=== PATIENT | female | born 1960 | race African-American/Black ===

== ENCOUNTER 2016-12-27 14:30 | Inpatient (IN) | payer MEDICARE, OTHER ==
[~2016-12-27] VITALS: Ht 165.1 cm; Wt 49.3 kg
[~2016-12-27 14:30] MED LIST: AMLO5TAB2 PO; LISI-519 PO; NEPHRO PO; ROCA0.5C PO; SEVEL800 PO
[2016-12-27 14:33] VITALS: BP 181/81; PULSE 105; RESP 24; TEMP 99; O2SAT 93
--- NOTE | 2016-12-27 14:45 | PD ---
Physical Exam Date Seen by Provider: Dec 27, 2016 Time Seen by Provider: 14:44 Narrative 56 YOBF C/O PNEUMOTHORAX. H/O CHRONIC COUGH. XRAY [place] VS REVIEWED AWAITING BED PLACEMENT Data Data Last Documented VS Vital Signs Date Time Temp Pulse Resp B/P Pulse Ox O2 Delivery O2 Flow Rate FiO2 12/27/16 14:33 99.0 105 24 181/81 93 Room Air MDM Supervised Visit with AN: No Condition: Stable Gideon Meyer Dec 27, 2016 14:45
--- NOTE | 2016-12-27 15:04 | PD ---
HPI Chief Complaint: Medical Clearance Time Seen by Provider: 14:49 Travel History International Travel<30 days: No Contact w/Intl Traveler<30days: No Traveled to known affect area: No History of Present Illness HPI The patient is a 56-year-old female who presents to the emergency department after she was referred by her oncologist, Dr. Maher. The patient states she has a history of breast cancer in the right side with previous lumpectomy, radiation therapy, and chemotherapy, is currently not on chemotherapy or radiation therapy. The patient states she's had a dry mostly nonproductive cough since February 2016. The patient had an outpatient CT of the thorax ordered by her oncologist who referred her to the emergency department for a "collapsed lung" on the right side. The patient denies any outright chest pain, shortness of breath, nausea, vomiting, or abdominal pain. The patient's primary physician is Dr. Neftali Pastor. 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 The patient's symptoms are moderate without any alleviating or exacerbating symptoms. PFSH Past Medical History Hx Anticoagulant Therapy: Yes Cancer: Yes (right breast cancer) Cardiovascular Problems: Yes Diabetes: No Diminished Hearing: No Endocrine: No Gastrointestinal Disorders: Yes (GERD hx of but ok now) Genitourinary: No Hepatitis: No Hiatal Hernia: No Hypertension: Yes Immune Disorder: No Medical other: Yes (ANEMIA/ok now) Musculoskeletal: No Neurologic: No Psychiatric: No Reproductive: No Respiratory: No Renal Failure: Yes (NIGHTLY PERITONEAL DIALYSIS.) Thyroid Disease: No ?: Not Menopausal: Yes Past Surgical History Abdominal Surgery: Yes (TENCKHOFF CATH) AICD: No Body Medical Devices: TENCKHOFF CATH fistula left arm infusaport Joint Replacement: No Pacemaker: No Thoracic Surgery: Yes (infusaport RIGHT CHEST) Other Surgery: Yes (I&D INFECTED CYST) Social History Alcohol Use: No Tobacco Use: No Substance Use: No Allergies-Medications (Allergen,Severity, Reaction): Coded Allergies: No Known Allergies (Verified , 04/11/16) Reported Meds & Prescriptions Reported Meds & Active Scripts Active Reported Rocaltrol (Calcitriol) 0.5 Mcg Cap 0.5 Mcg PO 3 TIMES A WEEK @1700 Renvela (Sevelamer Carbonate) 800 Mg Tab 1,600 Mg PO TIDAC Nephro-[place] Rx (Vitamin B Cmplx/Vit C/Folic AC) 1 Tab 1 Tab PO DAILY Lisinopril 5 Mg Tab 5 Mg PO BID Amlodipine (Amlodipine Besylate) 5 Mg Tab 5 Mg PO DAILY Review of Systems Except as stated in HPI: all other systems reviewed are Neg General / Constitutional: No: Fever HENT: No: Lightheadedness Cardiovascular: No: Chest Pain or Discomfort Respiratory: Positive: Cough, No: Shortness of Breath Gastrointestinal: No: Nausea, Vomiting, Abdominal Pain Musculoskeletal: No: Edema, Pain Physical Exam Narrative GENERAL: Awake, alert, pleasant 56-year-old female who appears her stated age and is in no acute respiratory distress. SKIN: Focused skin assessment warm/dry. HEAD: Atraumatic. Normocephalic. EYES: No injection or drainage. ENT: No nasal bleeding or discharge. Mucous membranes pink and moist. NECK: Trachea midline. No JVD. CARDIOVASCULAR: Regular, tachycardic with a heart rate of 105. Port in place right chest wall. RESPIRATORY: No accessory muscle use. Diminished breath sounds over the entire right lung. GASTROINTESTINAL: Abdomen soft, peritoneal catheter in place. MUSCULOSKELETAL: No obvious deformities. No clubbing. No cyanosis. No edema. NEUROLOGICAL: Awake and alert. No obvious cranial nerve deficits. Motor grossly within normal limits. Normal speech. PSYCHIATRIC: Appropriate mood and affect; insight and judgment normal. Data Data Last Documented VS Vital Signs Date Time Temp Pulse Resp B/P Pulse Ox O2 Delivery O2 Flow Rate FiO2 12/27/16 14:33 99.0 105 24 181/81 93 Room Air Orders Complete Blood Count With Diff (12/27/16 15:04) Comprehensive Metabolic Panel (12/27/16 15:04) Act Partial Throm Time (Ptt) (12/27/16 15:04) Prothrombin Time / Inr (Pt) (12/27/16 15:04) Admit Order (Ed Use Only) (12/27/16 15:24) Labs Laboratory Tests Test 12/27/16 15:10 White Blood Count 10.8 TH/MM3 Red Blood Count 4.08 MIL/MM3 Hemoglobin 9.3 GM/DL Hematocrit 30.0 % Mean Corpuscular Volume 73.6 FL Mean Corpuscular Hemoglobin 22.8 PG Mean Corpuscular Hemoglobin 31.0 % Concent Red Cell Distribution Width 27.4 % Platelet Count 225 TH/MM3 Mean Platelet Volume 8.2 FL Neutrophils (%) (Auto) 84.2 % Lymphocytes (%) (Auto) 5.4 % Monocytes (%) (Auto) 7.4 % Eosinophils (%) (Auto) 2.3 % Basophils (%) (Auto) 0.7 % Neutrophils # (Auto) 9.1 TH/MM3 Lymphocytes # (Auto) 0.6 TH/MM3 Monocytes # (Auto) 0.8 TH/MM3 Eosinophils # (Auto) 0.2 TH/MM3 Basophils # (Auto) 0.1 TH/MM3 CBC Comment AUTO DIFF Prothrombin Time 11.4 SEC Prothromb Time International 1.0 RATIO Ratio Activated Partial 29.2 SEC Thromboplast Time Sodium Level 136 MEQ/L Potassium Level 3.9 MEQ/L Chloride Level 93 MEQ/L Carbon Dioxide Level 28.6 MEQ/L Anion Gap 14 MEQ/L Blood Urea Nitrogen 43 MG/DL Creatinine 14.89 MG/DL Estimat Glomerular Filtration 3 ML/MIN Rate Random Glucose 102 MG/DL Calcium Level 9.3 MG/DL Total Bilirubin 0.4 MG/DL Aspartate Amino Transf 9 U/L (AST/SGOT) Alanine Aminotransferase 14 U/L (ALT/SGPT) Alkaline Phosphatase 81 U/L Total Protein 8.6 GM/DL Albumin 3.0 GM/DL MDM Medical Decision Making Medical Screen Exam Complete: Yes Emergency Medical Condition: Yes Medical Record Reviewed: Yes Interpretation(s) CT of the thorax without contrast performed on December 21, 2016 reveals a very large right pleural effusion causing compressive atelectasis of most of the right lung. The left lung is clear and well aerated. No focal or acute pulmonary infiltrates are seen on the left side. There is either a very small left effusion versus pleural thickening. Moderate diffuse cardiomegaly. Laboratory Tests Test 12/27/16 15:10 White Blood Count 10.8 TH/MM3 Red Blood Count 4.08 MIL/MM3 Hemoglobin 9.3 GM/DL Hematocrit 30.0 % Mean Corpuscular Volume 73.6 FL Mean Corpuscular Hemoglobin 22.8 PG Mean Corpuscular Hemoglobin 31.0 % Concent Red Cell Distribution Width 27.4 % Platelet Count 225 TH/MM3 Mean Platelet Volume 8.2 FL Neutrophils (%) (Auto) 84.2 % Lymphocytes (%) (Auto) 5.4 % Monocytes (%) (Auto) 7.4 % Eosinophils (%) (Auto) 2.3 % Basophils (%) (Auto) 0.7 % Neutrophils # (Auto) 9.1 TH/MM3 Lymphocytes # (Auto) 0.6 TH/MM3 Monocytes # (Auto) 0.8 TH/MM3 Eosinophils # (Auto) 0.2 TH/MM3 Basophils # (Auto) 0.1 TH/MM3 CBC Comment AUTO DIFF Prothrombin Time 11.4 SEC Prothromb Time International 1.0 RATIO Ratio Activated Partial 29.2 SEC Thromboplast Time Sodium Level 136 MEQ/L Potassium Level 3.9 MEQ/L Chloride Level 93 MEQ/L Carbon Dioxide Level 28.6 MEQ/L Anion Gap 14 MEQ/L Blood Urea Nitrogen 43 MG/DL Creatinine 14.89 MG/DL Estimat Glomerular Filtration 3 ML/MIN Rate Random Glucose 102 MG/DL Calcium Level 9.3 MG/DL Total Bilirubin 0.4 MG/DL Aspartate Amino Transf 9 U/L (AST/SGOT) Alanine Aminotransferase 14 U/L (ALT/SGPT) Alkaline Phosphatase 81 U/L Total Protein 8.6 GM/DL Albumin 3.0 GM/DL Differential Diagnosis Differential diagnosis includes pleural effusion, malignant pleural effusion, consolidative pleural effusion, empyema, pneumonia, hyponatremia, cancer, cardiomyopathy, congestive heart failure, hypoalbuminemia. Narrative Course IV was established, labs are drawn and sent, and the patient was placed on cardiac telemetry monitoring and continuous pulse oximetry monitoring. I reviewed the patient's CT of the thorax results from [facility] which reveals a large right pleural effusion with compressive atelectasis of the entire right lung. The patient will be 23 hour observation for interventional radiology thoracentesis and evaluation of malignant versus nonmalignant effusion. Creatinine is slightly greater than 14, this is her baseline. The patient has a history of end-stage renal disease and is currently on peritoneal dialysis, nightly, and is followed by her operator helper, Dr. Ernst. The patient is stable for the medical floor. Physician Communication Physician Communication The patient's primary physician is Dr. Neftali Pastor, [facility]. Diagnosis Primary Impression: Pleural effusion, right Admitting Information Admitting Physician Requests: Observation Condition: Stable Baltazar Woodard MD Dec 27, 2016 15:04
[2016-12-27] MEDS ORDERED: MAGNESIUM HYDROXIDE SUSP 30 ML CUP PO PRN (15:30)
[2016-12-27] MEDS ORDERED: NALOXONE HCL 0.4 MG/ML AMP IV PRN (15:30)
[2016-12-27] MEDS ORDERED: BISACODYL 10 MG SUPP RECTAL PRN (15:30)
[2016-12-27] MEDS ORDERED: LACTULOSE SYRUP 20 GM/30 ML CUP PO PRN (15:30)
[2016-12-27 15:35] LABS: AUTOMATED NEUTROPHIL # 9.1 TH/MM3 (1.8-7.7); BASOPHIL # 0.1 TH/MM3 (0-0.2); BASOPHIL % 0.7 % (0.0-2.0); EOSINOPHIL # 0.2 TH/MM3 (0-0.4); EOSINOPHIL % 2.3 % (0.0-4.0); LYMPH % 5.4 % (9.0-44.0); LYMPHOCYTE # 0.6 TH/MM3 (1.0-4.8); MEAN CELL VOLUME 73.6 FL (80.0-100.0); MEAN CORPUSCULAR HEMOGLOBIN 22.8 PG (27.0-34.0); MONO % 7.4 % (0.0-8.0); NEUT % 84.2 % (16.0-70.0); PLATELET COUNT 225 TH/MM3 (150-450); RED BLOOD COUNT 4.08 MIL/MM3 (4.00-5.30); RED CELL DISTRIBUTION WIDTH 27.4 % (11.6-17.2); WHITE BLOOD COUNT 10.8 TH/MM3 (4.0-11.0)
[2016-12-27 15:40] LABS: APTT (PATIENT) 29.2 SEC (24.3-30.1); HEMO FLAGS AUTO DIFF; PROTHROMBIN TIME - PATIENT 11.4 SEC (9.8-11.6)
[2016-12-27 15:52] LABS: ALT (GPT) 14 U/L (10-53); ANION GAP 14 MEQ/L (5-15); AST (GOT) 9 U/L (15-37); BICARBONATE 28.6 MEQ/L (21.0-32.0); BLOOD UREA NITROGEN 43 MG/DL (7-18); CHLORIDE 93 MEQ/L (98-107); GLOMERULAR FILTRATION RATE 3 ML/MIN (>89); POTASSIUM 3.9 MEQ/L (3.5-5.1); SODIUM (NA) 136 MEQ/L (136-145)
[2016-12-27 15:55] LABS: ALKALINE PHOSPHATASE 81 U/L (45-117); TOTAL BILIRUBIN ADULT 0.4 MG/DL (0.2-1.0)
[2016-12-27 16:29] LABS: KERATOCYTES 1+ (NORMAL); OVALOCYTES 1+ (NORMAL); PLATELET ESTIMATE SMEAR NORMAL (NORMAL); PLATELET MORPHOLOGY NORMAL (NORMAL); SCAN/DIFF AUTO DIFF CONFIRMED; TEARDROP RBCS 1+ (NORMAL)
[2016-12-27] MEDS: SEVELAMER CARBONATE 800 MG TAB PO SCH (17:00)
[2016-12-27 18:28] VITALS: BP 185/85; PULSE 104; RESP 18; O2SAT 96
--- NOTE | 2016-12-27 18:30 | HP.UPD ---
H&P Update Note This is a 56-year-old female patient who sees oncologist Dr. Maher for breast cancer. She has been coughing recently. HRCT was done at [facility] and shows reportedly large right side effusion. The patient was sent into the emergency department at [facility]. She was seen by Dr. Woodard and subsequently seen by the undersigned in room delta 48. She is alert and verbal. She is repeatedly coughing. She denies any fever. Denies any pain. Her heart rate is about 105. Her potassium was also 5.6. She also has end-stage renal disease on peritoneal dialysis. Her employment services director Dr. conteh has already seen her in consultation. Pulmonary is consulted also thoracic surgery for possible chest tube insertion. there is suspicion of the effusion being malignant. Full history and physical to follow Danial Arias MD Dec 27, 2016 18:26
--- NOTE | 2016-12-27 19:09 | MB ---
cc: ERNESTINA GERARD MD DATE OF CONSULTATION 12/27/2016 REASON FOR CONSULTATION End-stage renal disease on peritoneal dialysis for management. HISTORY OF PRESENT ILLNESS This is a 56-year-old female with past medical history of hypertension, chronic anemia, history of breast cancer, end-stage renal disease on peritoneal dialysis, history of gastroesophageal reflux disease, history of GI bleeding came to the hospital referred by Dr. Maher her oncologist. The patient has this cough going on for the last five or six months and she had a chest x-ray done as an outpatient which showed that she has some pleural effusion and she was referred by her oncologist, Dr. Maher, to go to the hospital for possible thoracentesis. Patient has mainly dry cough. There is no chest pain. She does not have any fever. There is no history of trauma. She had the CT scan of the chest done as outpatient. The patient has been following with Dr. Maher for her breast cancer. She denies any chest pain. There is no abdominal pain. No nausea or vomiting. Her peritoneal fluid has been clear according to the patient. She had dialysis last night. PAST MEDICAL HISTORY 1. Hypertension. 2. Chronic anemia. 3. History of breast cancer. 4. Gastroesophageal reflux disease. 5. History of GI bleeding. 6. End-stage renal disease on peritoneal dialysis. PAST SURGICAL HISTORY 1. History of left arm AV fistula. 2. History of PD catheter placement. 3. PermaCath placement. 4. Gtfsdi-S-Sejp placement. REVIEW OF SYSTEMS The patient has no history of fever. No sore throat. She has generalized weakness. There is no shortness of breath or chest pain. She is currently on room air. She has cough which is mainly dry. There is no nausea or vomiting. No abdominal pain. No history of diarrhea. SOCIAL HISTORY The patient lives with her mother. There is no history of smoking or alcoholism. FAMILY HISTORY Noncontributory. ALLERGIES She has no known drug allergies. MEDICATIONS Currently she is on: 1. Lisinopril 5 mg b.i.d. 2. Annie-Colace 1 tablet b.i.d. 3. Norvasc 5 mg once a day. 4. Nephrocaps 1 capsule daily. 5. Calcitriol three times per week 0.5 mcg. 6. Renvela 1.6 grams t.i.d. with meals. 7. Zofran as needed. 8. [place] as needed. 9. Morphine as needed. PHYSICAL EXAMINATION GENERAL: On examination the patient is awake, alert. She is not in acute distress. VITAL SIGNS: Her last blood pressure is 181/81, temperature is 99, oxygen saturation on room air 93-97%. HEENT: Pupils equally reacting to light. Nonicteric sclera, conjunctiva pale. NECK: Supple. JVD is not elevated. LUNGS: The patient has bilateral decreased air entry more on the right side with scattered wheezing. HEART: S1-S2, regular rhythm. ABDOMEN: Soft. Lax. There is no tenderness. Bowel sounds positive. EXTREMITIES: She has mild edema in the legs. LABORATORY DATA Investigations, WBC count is 10.8, hemoglobin 9.3, platelet count of 225. Neutrophils 84.2%. Sodium 136, potassium 3.9, chloride 93, bicarb 28.6, BUN 43, creatinine 14.8. Calcium is 9.3. AST is 9, ALT is 14. Total protein is 8.6 with an albumin of 3.0. NR is 1.0. Urinalysis showing protein of 30. IMAGING STUDIES The patient has no recent imaging study done here. She has CT scan of the chest done as an outpatient and it shows that she had a large right-sided effusion. ASSESSMENT/PLAN 1. Right pleural effusion. 2. End-stage renal disease on peritoneal dialysis. 3. Hypertension. 4. Anemia. 5. History of gastroesophageal reflux disease and GI bleeding. The patient has normal potassium. She is not in fluid overload status. Her hemoglobin is slightly low 9.3. She will need thoracentesis done. She is still in the ER and waiting for a bed to go upstairs. She will be going soon according to the charge nurse here. At this point we will observe her and there is no acute urgent need for dialysis so most likely she is going to skip the peritoneal dialysis tonight. I did discuss with the patient and she is agreeable with that and she does not feel short of breath and her oxygen saturation is normal on room air and potassium is normal. We will wait for the procedure to be done by the intervention radiology and if she is still here, then she will get her peritoneal dialysis if needed. We can start it sooner in the daytime. Thank you for the consultation. I will follow the patient while she is in the hospital. Ernestina Gerard MD AQJ/KK /6:08 PM /6:46 PM
--- NOTE | 2016-12-27 19:59 | MB ---
cc: MIL ALANIZ DATE OF CONSULTATION 12/27/[address] Arias. REASON FOR CONSULTATION Pleural effusion. HISTORY OF THE PRESENT ILLNESS Ms. Garvin is a pleasant 56-year-old -[place] female with history of CA of the breast status post right lumpectomy and axillary lymph node dissection. She was treated with Herceptin and Taxol. Also has received radiation treatment. The patient has cardiomyopathy, ejection fraction of 35%. She also has history of end stage renal disease. She is on hemodialysis. The patient had a CT scan of the chest done last week by Dr. Hitesh Maher at [facility]. It shows large right pleural effusion with compressive atelectasis most of the right lung and has very small left pleural effusion. She has diffuse cardiomegaly. She denies any shortness of breath. Does not have any chest pain. No nausea or vomiting or cough or sputum production. No fever or chills. PAST MEDICAL HISTORY Her past medical history is significant for: 1. A history of CA of the breast status post right lumpectomy and status post chemotherapy and radiation treatment. 2. History of end-stage renal disease on dialysis. 3. Cardiomyopathy secondary to medication. MEDICATIONS She is on currently takin. Calcitriol 0.5 micrograms. 2. Amlodipine 5 mg a day. 3. Lisinopril 5 mg twice a day. 4. Morphine for pain. ALLERGIES NO KNOWN DRUG ALLERGIES. SOCIAL HISTORY She is single. 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 No history of smoking or alcohol abuse. FAMILY HISTORY She has one daughter who lives with her. REVIEW OF SYSTEMS Normally she is up, around and active. Denies any shortness of breath. No orthopnea or PND. No cough or sputum production. No DVT or pulmonary embolism. PHYSICAL EXAMINATION GENERAL: Thin-built female not in acute distress. VITAL SIGNS: Blood pressure 181/81, heart rate 105, respiration 20, temperature 99, saturation 93 - 100% on room air. HEENT: Examination pupils are equal, round and reactive to light. Oral mucosa, nasal mucosa normal. NECK: Supple. JVP not raised. CHEST: She has dull percussion noted and markedly decreased breath sounds on the right side. CARDIOVASCULAR: S1-S2 normal. ABDOMEN: Sort. nondistended. Bowel sounds are present. EXTREMITIES: No edema. IMPRESSION 1. Large right pleural effusion likely malignant. The patient is tolerating it well and she is comfortable. 2. Atelectasis. 3. End-stage renal disease. 4. Hypertension. 5. Cardiomyopathy. PLAN I discussed with the patient she will need right chest tube placement to drain the fluid and likely she will need pleurodesis. She is comfortable on room air at this point. I will request interventional radiology for fluoroscopic guided chest tube placement. Further treatment will depend on the course in the hospital. Thank you Dr. Arias for this consultation. MD LANA Perry/COLLEEN /7:09 PM /7:36 PM
[2016-12-27 20:51] VITALS: PULSE 86
[2016-12-27] MEDS: DOCUSATE SODIUM 50 MG/SENNA 8.6 MG TAB PO SCH (20:56)
[2016-12-27] MEDS: LISINOPRIL 5 MG TAB PO SCH (20:56)
[2016-12-27] MEDS: SODIUM CHLORIDE 0.9% FLUSH 10 ML FLUSH IV FLUSH SCH (20:56)
[2016-12-27 20:58] VITALS: BP 163/80; PULSE 92; RESP 18; TEMP 99.4; O2SAT 99
[2016-12-27] MEDS: ACETAMINOPHEN 325 MG TAB PO PRN (21:37)
[2016-12-27 23:10] VITALS: BP 159/79; PULSE 83; RESP 18; TEMP 97.8; O2SAT 92
[2016-12-28] VITALS (9 sets, daily range): BP systolic 143–177; BP diastolic 71–87; PULSE 78–88; RESP 17–20; TEMP 97–98.8; O2SAT 88–95
[2016-12-28] MEDS: SEVELAMER CARBONATE 800 MG TAB PO SCH ×4 (08:00→18:56)
[2016-12-28] MEDS ORDERED: fentaNYL CITRATE 250 MCG/5 ML AMP ONE (09:26)
[2016-12-28] MEDS ORDERED: MIDAZOLAM HCL 2 MG/2 ML VIAL ONE (09:26)
[2016-12-28 10:18] LABS: AUTOMATED NEUTROPHIL # 7.2 TH/MM3 (1.8-7.7); BASOPHIL # 0.1 TH/MM3 (0-0.2); BASOPHIL % 0.9 % (0.0-2.0); EOSINOPHIL # 0.3 TH/MM3 (0-0.4); EOSINOPHIL % 3.4 % (0.0-4.0); HEMATOCRIT 27.9 % (35.0-46.0); MEAN CELL VOLUME 73.9 FL (80.0-100.0); MEAN CORPUSCULAR HEMOGLOBIN 22.8 PG (27.0-34.0); MEAN CORPUSCULAR HGB CONC 30.8 % (32.0-36.0); MONO % 9.2 % (0.0-8.0); NEUT % 75.5 % (16.0-70.0); PLATELET COUNT 225 TH/MM3 (150-450); RED BLOOD COUNT 3.77 MIL/MM3 (4.00-5.30); RED CELL DISTRIBUTION WIDTH 27.2 % (11.6-17.2); WHITE BLOOD COUNT 9.5 TH/MM3 (4.0-11.0)
[2016-12-28 10:21] LABS: HEMO FLAGS AUTO DIFF
--- NOTE | 2016-12-28 10:26 | PD.RAD ---
Post Procedure Progress Note Pre Procedure Diagnosis: (1) Pleural effusion, right Post Procedure Diagnosis: (1) Pleural effusion, right Procedure Date: Dec 28, 2016 Supervising Radiologist: Lawrence Taylor JR Proceduralist/Assist: Hector Gonzalez, RT(R), Sandra Cerrato RT(R) Anesthesia: Conscious Sedation Plan of Activity Patient to Unit: ROPU Patient Condition: Good See PACS Report for procedural detail/treatment Drainage Procedure Procedure 1 Imaging Guidance: Fluoroscopy, Ultrasound Side: Right Procedure Type: Chest Tube Non-Tunneled Procedure: Placement Welsh: 10 Drainage: Pleurovac, Suction Fluid Description: Yellow Findings: Placed right sided chest tube. In good position and draining well. Plan Need to monitor output for several days before considering pleurodesis. Jr. Brandon,Lawrence Arechiga MD Dec 28, 2016 10:26
[2016-12-28 10:27] LABS: BICARBONATE 26.1 MEQ/L (21.0-32.0); POTASSIUM 3.7 MEQ/L (3.5-5.1)
--- NOTE | 2016-12-28 10:27 | HHI.PR ---
Subjective History of Present Illness Patient going for right side chest tube placement d/w RN. Review of Systems Constitutional Constitutional: Fatigue, Weakness Pulmonary Respiratory: Shortness of Breath Vitals/Results Intake & Output 12/27/16 12/27/16 12/28/16 14:59 22:59 06:59 Intake Total 480 ml 0 ml Balance 480 ml 0 ml Intake Oral 480 ml 0 ml # Voids 1 1 # Bowel Movements 0 0 Vital Signs Vital Signs Date Time Temp Pulse Resp B/P Pulse Ox O2 Delivery O2 Flow Rate FiO2 12/28/16 08:00 98.6 85 20 172/79 91 12/28/16 03:56 98.2 80 17 166/76 93 12/27/16 23:10 97.8 83 18 159/79 92 12/27/16 20:58 99.4 92 18 163/80 99 12/27/16 20:51 86 12/27/16 19:10 Nasal Cannula 2.00 12/27/16 18:28 104 18 185/85 96 Nasal Cannula 2 12/27/16 14:33 99.0 105 24 181/81 93 Room Air CBC/BMP: 12/28/16 0733 12/27/16 1510 Lab Results Laboratory Tests Test 12/27/16 12/28/16 15:10 07:33 White Blood Count 10.8 TH/MM3 9.5 TH/MM3 Red Blood Count 4.08 MIL/MM3 3.77 MIL/MM3 Hemoglobin 9.3 GM/DL 8.6 GM/DL Hematocrit 30.0 % 27.9 % Mean Corpuscular Volume 73.6 FL 73.9 FL Mean Corpuscular Hemoglobin 22.8 PG 22.8 PG Mean Corpuscular Hemoglobin 31.0 % 30.8 % Concent Red Cell Distribution Width 27.4 % 27.2 % Platelet Count 225 TH/MM3 225 TH/MM3 Mean Platelet Volume 8.2 FL 8.8 FL Neutrophils (%) (Auto) 84.2 % 75.5 % Lymphocytes (%) (Auto) 5.4 % 11.0 % Monocytes (%) (Auto) 7.4 % 9.2 % Eosinophils (%) (Auto) 2.3 % 3.4 % Basophils (%) (Auto) 0.7 % 0.9 % Neutrophils # (Auto) 9.1 TH/MM3 7.2 TH/MM3 Lymphocytes # (Auto) 0.6 TH/MM3 1.0 TH/MM3 Monocytes # (Auto) 0.8 TH/MM3 0.9 TH/MM3 Eosinophils # (Auto) 0.2 TH/MM3 0.3 TH/MM3 Basophils # (Auto) 0.1 TH/MM3 0.1 TH/MM3 CBC Comment AUTO DIFF AUTO DIFF Differential Comment AUTO DIFF CONFIRMED Platelet Estimate NORMAL Platelet Morphology Comment NORMAL Tear Drop Cells 1+ Ovalocytes 1+ Keratocytes 1+ Prothrombin Time 11.4 SEC Prothromb Time International 1.0 RATIO Ratio Activated Partial 29.2 SEC Thromboplast Time Sodium Level 136 MEQ/L Potassium Level 3.9 MEQ/L Chloride Level 93 MEQ/L Carbon Dioxide Level 28.6 MEQ/L Anion Gap 14 MEQ/L Blood Urea Nitrogen 43 MG/DL Creatinine 14.89 MG/DL Estimat Glomerular Filtration 3 ML/MIN Rate Random Glucose 102 MG/DL Calcium Level 9.3 MG/DL Total Bilirubin 0.4 MG/DL Aspartate Amino Transf 9 U/L (AST/SGOT) Alanine Aminotransferase 14 U/L (ALT/SGPT) Alkaline Phosphatase 81 U/L Total Protein 8.6 GM/DL Albumin 3.0 GM/DL Physical Exam General General Appearance: No Acute Distress, Comfortable Eyes Eye Exam: Sclera White, Extraocular Movement Intact Throat Throat Exam: Oral Mucosa Foss & Moist, Oral Pharynx Normal Neck Neck Exam: Neck Supple, Trachea Midline Pulmonary Resp Exam: No Distress, Decreased Bases Resp Remarks No breath sound right lower chest Cardiology CV Exam: Regular, Normal Sinus Rhythm Gastrointestinal/Abdomen GI Exam: Soft, Non-Tender, Bowel Sounds Present Musculoskeletal MS Exam: Joints Intact Integumentary Skin Exam: Warm, Dry Neurologic Neuro Exam: Alert, Awake, Oriented, No Focal Deficits PUD Prophylasis PUD Prophylaxis: Protonix Assessment/Plan Assessment/Plan Assessment and Plan Assessment and Plan Large right sided pleural effusion going for right side chest tube placement Right lung collapse End-stage renal disease on peritoneal dialysis nephrology following Anemia of chronic disease Resting dyspnea secondary to the pleural effusion Management Her oncologist and pump press operator are consulted in addition to consult to pulmonary There is a strong suspicion that the pleural effusion likely is malignant Therefore a chest tube insertion will be considered Radiology is consulted for the above Home medications resumed Discussed with patient Check CBC with diff CMP in AM. Discussed Condition with: Patient Felipe Alvarado MD Dec 28, 2016 10:27
--- NOTE | 2016-12-28 10:50 | RADRPT ---
EXAM DATE/TIME: 12/28/2016 10:05 [facility] COMPARISON: No previous studies available for comparison. INDICATIONS : Patient with right sided pleural effusion in need of chest tube placement. MEDICAL HISTORY : Right breast cancer with chemo and radiation therapy, ESRD on dialysis, Cardiomyopathy, GERD, HTN, An emia SURGICAL HISTORY : Port placement, Peritoneal dialysis catheter placement, Left arm AV fistula, Right lumpectomy and axi llary lymph node dissection ENCOUNTER: Initial ACUITY: 1 week PAIN SCORE: 0/10 FLUORO TIME: 0.75 minutes IMAGE SERIES: 1 SEDATION TIME: 20 minutes MEDICATION(S): 1.) 1 mg midazolam (Versed) IV 2.) 50 mcg fentanyl (Sublimaze) IV DEVICE(S): 1.) 10 Colombian non-locking catheter James PROCEDURE : 1. Fluoroscopically guided chest tube placement. 2. Conscious sedation with continuous EKG and oximetry monitoring. The risks, benefits and alternatives to the procedure were explained and verbal and written consent w as obtained. The site was prepped in sterile fashion. Full sterile technique was used, including ca p, mask, sterile gloves and gown and a large sterile sheet. Hand hygiene and 2% chlorhexidine and/or betadine/alcohol prep was utilized per protocol for cutaneous antisepsis. The skin and subcutaneous tissues were infiltrated with local anesthetic solution. With fluoroscopic guidance the chest was punctured within the right inferior maxillary line. This was performed under ultrasound guidance. With fluoroscopic guidance a wire was coiled within the inferio r right hemithorax. A 10 Colombian catheter was passed over the wire and coiled within the inferior port ion of the hemithorax. Clear straw-colored fluid obtained. The catheter was sutured in place using si lk suture. Wall suction was applied. Post procedure images demonstrate satisfactory position of the tube. The catheter was sutured in place and a Percu-Stay was applied. Conscious sedation was performed with the prescribed dosages and duration as above in the presence of an independent trained radiology nurse to assist in the monitoring of the patient. EKG and oximetry remained stable throughout the procedure. The patient tolerated the procedure well and there were n o complications. The patient was sent to post anesthesia recovery in stable condition. CONCLUSION: Uncomplicated chest tube placement as above. The output will need to be monitored for several days to evaluate the volume of output. Consideration can be made to pleurodesis if the output is sufficient. Lawrence Taylor Jr., MD on December 28, 2016 at 10:46 Board Certified Radiologist. This report was verified electronically.
--- NOTE | 2016-12-28 10:57 | RADRPT ---
EXAM DATE/TIME: 12/28/2016 10:39 [facility] COMPARISON: CHEST SINGLE AP, April 11, 2016, 16:05. INDICATIONS : Post right side chest tube placement. MEDICAL HISTORY : None. SURGICAL HISTORY : None. ENCOUNTER: Initial ACUITY: 1 day PAIN SCORE: 0/10 LOCATION: Right chest FINDINGS: A single frontal view of the chest shows a small caliber thoracostomy tube within the anterior right hemithorax. Rounded areas of consolidation are remaining within the right upper lobe and right lower lobe. More pronounced within the right lower lobe. Left lung is clear. Heart is enlarged. Mild scolio tic curvature of the spine. CONCLUSION: 1. Right thoracostomy tube in good position within the inferior hemithorax. 2. Questionable loculated effusion involving the right lateral hemithorax. 3. Consolidation involving the entire right lung. 4. Cardiomegaly. Lawrence Taylor Jr., MD on December 28, 2016 at 10:54 Board Certified Radiologist. This report was verified electronically.
[2016-12-28 11:34] LABS: POLYCHROMASIA 2.2 % (0.0-1.9)
[2016-12-28 11:35] LABS: OVALOCYTES 1+ (NORMAL)
[2016-12-28 11:36] LABS: KERATOCYTES 1+ (NORMAL); PLATELET ESTIMATE SMEAR NORMAL (NORMAL); PLATELET MORPHOLOGY NORMAL (NORMAL); SCAN/DIFF AUTO DIFF CONFIRMED; TARGET CELLS 1+ (NORMAL)
[2016-12-28] MEDS: DOCUSATE SODIUM 50 MG/SENNA 8.6 MG TAB PO SCH ×2 (11:49→20:26)
[2016-12-28] MEDS: SODIUM CHLORIDE 0.9% FLUSH 10 ML FLUSH IV FLUSH SCH ×2 (11:50→20:27)
[2016-12-28] MEDS: amLODIPine BESYLATE 5 MG TAB PO SCH (11:50)
[2016-12-28] MEDS: VITAMIN B CMPLX/VITC/FOLIC AC CAP PO SCH (11:50)
[2016-12-28] MEDS: LISINOPRIL 5 MG TAB PO SCH ×2 (11:50→20:26)
[2016-12-28] MEDS: ACETAMINOPHEN 325 MG TAB PO PRN (14:38)
--- NOTE | 2016-12-28 16:18 | HHI.HP ---
HPI Service [facility] Primary Care Physician Neftali Pastor III, MD Admission Diagnosis large right pleural effusion with compressive atelectasis, hypoxia Diagnoses: Travel History International Travel<30 Days: No Contact w/Intl Traveler <30 Da: No Traveled to Known Affected Are: No History of Present Illness This is a 56-year-old female patient who sees oncologist Dr. Maher for breast cancer. She has been coughing recently. Chest CT was done at [place] and shows reportedly large right side effusion. The patient was sent into the emergency department at [place]. She was seen by Dr. Woodard and subsequently seen by the undersigned in room delta 48. She is alert and verbal. She is repeatedly coughing. She denies any fever. Denies any pain. Her heart rate is about 105. Her potassium was also 5.6. She also has end- stage renal disease on peritoneal dialysis. Her youth care worker Dr. Ernst has already seen her in consultation. Pulmonary is consulted also thoracic surgery for possible chest tube insertion. there is suspicion of the effusion being malignant. The patient is alert and oriented, she looks anxious, she is complaining of resting shortness of breath and some right sided chest pain worse with deep inspiration. The case was discussed with her youth care worker outside her room. This is a belated history and physical reflecting encounter with this patient on 12/27/16 at the emergency department room delta 48. Review of Systems Other As detailed above, 10 systems reviewed and otherwise negative Past Family Social History Past Medical History Right sided breast cancer Radiation therapy Chemotherapy with Herceptin, she sees Dr. Maher Abdomen the secondary to chemotherapy End-stage renal disease currently on peritoneal dialysis Hypertension Anemia of chronic disease Acid reflux Prior gastrointestinal bleeding Past Surgical History Left upper extremity AV fistula Peritoneal dialysis catheter insertion Right breast lumpectomy Reported Medications Reported Meds & Active Scripts Active Reported Rocaltrol (Calcitriol) 0.5 Mcg Cap 0.5 Mcg PO 3 TIMES A WEEK @1700 Renvela (Sevelamer Carbonate) 800 Mg Tab 1,600 Mg PO TIDAC Nephro-Brenden Rx (Vitamin B Cmplx/Vit C/Folic AC) 1 Tab 1 Tab PO DAILY Lisinopril 5 Mg Tab 5 Mg PO BID Amlodipine (Amlodipine Besylate) 5 Mg Tab 5 Mg PO DAILY Allergies: Coded Allergies: No Known Allergies (Verified , 04/11/16) Family History Reviewed but noncontributory Social History No smoking, no excessive alcohol, no illicit drug use Physical Exam Vital Signs Vital Signs Date Time Temp Pulse Resp B/P Pulse Ox O2 Delivery O2 Flow Rate FiO2 12/28/16 12:00 97.0 83 18 177/81 92 12/28/16 11:00 82 20 143/81 88 12/28/16 10:35 84 20 146/83 88 12/28/16 10:20 98.8 88 20 149/87 88 12/28/16 08:00 98.6 85 20 172/79 91 12/28/16 03:56 98.2 80 17 166/76 93 12/27/16 23:10 97.8 83 18 159/79 92 12/27/16 20:58 99.4 92 18 163/80 99 12/27/16 20:51 86 12/27/16 19:10 Nasal Cannula 2.00 12/27/16 18:28 104 18 185/85 96 Nasal Cannula 2 Physical Exam GENERAL: This is a pleasant, borderline under-nourished, well-developed patient , looking anxious and mildly short of breath at rest. SKIN: No rashes, ecchymoses or lesions. Cool and dry. HEAD: Atraumatic. Normocephalic. No temporal or scalp tenderness. EYES: Pupils equal round and reactive. Extraocular motions intact. No scleral icterus. No injection or drainage. ENT: Nose without bleeding, purulent drainage or septal hematoma. Throat without erythema, tonsillar hypertrophy or exudate. Uvula midline. Airway patent. NECK: Supple CARDIOVASCULAR: Regular rate and rhythm without murmurs, gallops, or rubs. RESPIRATORY: Dull in both bases, crackles both apices GASTROINTESTINAL: Abdomen soft, non-tender, nondistended. No hepato-splenomegaly , or palpable masses. No guarding. MUSCULOSKELETAL: No edema, she has a left upper extremity AV fistula with a thrill and bruit NEUROLOGICAL: Awake and alert. Cranial nerves II through XII intact. Normal speech. Laboratory Laboratory Tests Test 12/28/16 07:33 White Blood Count 9.5 Red Blood Count 3.77 Hemoglobin 8.6 Hematocrit 27.9 Mean Corpuscular Volume 73.9 Mean Corpuscular Hemoglobin 22.8 Mean Corpuscular Hemoglobin 30.8 Concent Red Cell Distribution Width 27.2 Platelet Count 225 Mean Platelet Volume 8.8 Neutrophils (%) (Auto) 75.5 Lymphocytes (%) (Auto) 11.0 Monocytes (%) (Auto) 9.2 Eosinophils (%) (Auto) 3.4 Basophils (%) (Auto) 0.9 Neutrophils # (Auto) 7.2 Lymphocytes # (Auto) 1.0 Monocytes # (Auto) 0.9 Eosinophils # (Auto) 0.3 Basophils # (Auto) 0.1 CBC Comment AUTO DIFF Differential Comment AUTO DIFF CONFIRMED Platelet Estimate NORMAL Platelet Morphology Comment NORMAL Polychromasia 2.2 Target Cells 1+ Ovalocytes 1+ Keratocytes 1+ Sodium Level 132 Potassium Level 3.7 Chloride Level 93 Carbon Dioxide Level 26.1 Anion Gap 13 Blood Urea Nitrogen 53 Creatinine 15.64 Estimat Glomerular Filtration 3 Rate Random Glucose 69 Calcium Level 8.6 Result Diagram: 12/28/16 0733 12/28/16 [address]ly a CT scan of the chest was done at [place] and showed a large right sided pleural effusion with right lung collapse, report is not available at the time of her arrival to the emergency department Assessment and Plan Assessment and Plan Assessment Large right sided pleural effusion Right lung collapse End-stage renal disease on peritoneal dialysis Anemia of chronic disease Resting dyspnea secondary to the pleural effusion Management The patient is admitted to medical floor Her oncologist and youth care worker are consulted in addition to consult to pulmonary There is a strong suspicion that the pleural effusion likely is malignant Therefore a chest tube insertion will be considered Radiology is consulted for the above Home medications resumed Discussed with emergency physician Discussed with patient Discussed with youth care worker 35 minutes Discussed With: Danial Kingston MD Dec 28, 2016 16:18
--- NOTE | 2016-12-28 17:09 | HHI.NPPN ---
Subjective History of Present Illness 56-year-old female with past medical history of hypertension, chronic anemia, history of breast cancer, end-stage renal disease on peritoneal dialysis, history of gastroesophageal reflux disease, history of GI bleeding came to the hospital referred by Dr. Maher her oncologist. The patient has this cough going on for the last five or six months and she had a chest CT done as an outpatient which showed that she has some pleural effusion and she was referred by her oncologist, Dr. Maher, to go to the hospital for possible thoracentesis. Additional Remarks Patient is alert, on room air, no SOB, mild pain at CT site. Review of Systems General Constitutional: Fatigue Respiratory Lungs: Cough Cardiovascular Cardiac: BACON Objective Data Data 12/27/16 12/28/16 19:00 07:00 Intake Total 480 ml Balance 480 ml Intake Oral 480 ml # Voids 2 # Bowel Movements 0 Vital Signs Date Time Temp Pulse Resp B/P Pulse Ox O2 Delivery O2 Flow Rate FiO2 12/28/16 12:00 97.0 83 18 177/81 92 12/28/16 11:00 82 20 143/81 88 12/28/16 10:35 84 20 146/83 88 12/28/16 10:20 98.8 88 20 149/87 88 12/28/16 08:00 98.6 85 20 172/79 91 12/28/16 03:56 98.2 80 17 166/76 93 12/27/16 23:10 97.8 83 18 159/79 92 12/27/16 20:58 99.4 92 18 163/80 99 12/27/16 20:51 86 12/27/16 19:10 Nasal Cannula 2.00 12/27/16 18:28 104 18 185/85 96 Nasal Cannula 2 -: 12/28/16 0733 12/28/16 0733 Physical Exam General Appearance: No Acute Distress, Comfortable Eyes Eye Exam: Pupils Equal Throat Throat Exam: Oral Mucosa [place] & Moist Neck Neck Exam: Neck Supple Pulmonary Resp Exam: No Distress, Rhonchi, Decreased Bases, Diminished Breath Sounds Cardiology CV Exam: Regular, Normal Sinus Rhythm Gastrointestinal/Abdomen GI Exam: Soft, Non-Tender, Bowel Sounds Present Extremeties Extremities Exam: Trace Edema Neurologic Neuro Exam: Alert, Awake, Oriented Psychiatric Psych Exam: Appropriate Responses Assessment/Plan Assessment Summary: Anemia of CKD, Hypertension, End Stage Renal Disease Problem List: (1) Pleural effusion, right (2) Sinus tachycardia (3) Hypertension (4) Anemia of chronic kidney failure (5) ESRD on peritoneal dialysis Plan Patient has CT inserted, Pulmonary following. BP is slightly elevated, possible due to pain. Add Percocet, to start PD soon, I called Dialysis nurse. Hgb. is low, check iron stores and Epogen one dose. Awaiting fluid result, may will need pleurodesis. Problem Qualifiers (1) Anemia of chronic kidney failure: Qualified Code: N18.5 - Anemia of chronic renal failure, stage 5 Brina Ernst MD Dec 28, 2016 17:09
[2016-12-28] MEDS ORDERED: HEPARIN SODIUM - IV 10,000 UNITS/10 ML VIAL XX PRN (17:15)
[2016-12-28] MEDS ORDERED: SODIUM CHLORIDE 0.9% FLUSH 10 ML FLUSH IV FLUSH PRN (17:15)
[2016-12-28] MEDS ORDERED: EPOETIN ALFA 40,000 UNITS/ML VIAL SQ ONE (18:00)
--- NOTE | 2016-12-28 18:24 | HHI.PR ---
Subjective Remarks 56 YOAA female with ESRD on PD, pl eff, ca breast Had right chest tube placed Breathing better No CP no Fever Objective Vital Signs Vital Signs Date Time Temp Pulse Resp B/P Pulse Ox O2 Delivery O2 Flow Rate FiO2 12/28/16 16:00 97.0 86 18 164/71 95 12/28/16 12:00 97.0 83 18 177/81 92 12/28/16 11:00 82 20 143/81 88 12/28/16 10:35 84 20 146/83 88 12/28/16 10:20 98.8 88 20 149/87 88 12/28/16 08:00 98.6 85 20 172/79 91 12/28/16 03:56 98.2 80 17 166/76 93 12/27/16 23:10 97.8 83 18 159/79 92 12/27/16 20:58 99.4 92 18 163/80 99 12/27/16 20:51 86 12/27/16 19:10 Nasal Cannula 2.00 12/27/16 18:28 104 18 185/85 96 Nasal Cannula 2 I/O 12/27/16 12/27/16 12/27/16 12/28/16 12/28/16 12/28/16 07:00 15:00 23:00 07:00 15:00 23:00 Intake Total 480 ml 0 ml 480 ml Output Total 550 ml Balance 480 ml 0 ml -70 ml Intake Oral 480 ml 0 ml 480 ml Output Chest Tube Drainage Total 550 ml # Voids 1 1 0 # Bowel Movements 0 0 Result Diagram: 12/28/16 0733 12/28/16732 Objective Remarks GENERAL: MBMN AA female,NAD SKIN: Warm and dry. HEAD: Normocephalic. EYES: No scleral icterus. No injection or drainage. NECK: Supple, trachea midline. No JVD or lymphadenopathy. CARDIOVASCULAR: Regular rate and rhythm without murmurs, gallops, or rubs. RESPIRATORY: Breath sounds equal bilaterally. No accessory muscle use. Right chest tube draining GASTROINTESTINAL: Abdomen soft, non-tender, nondistended. PD Cathetor MUSCULOSKELETAL: No cyanosis, or edema. BACK: Nontender without obvious deformity. No CVA tenderness. A/P Assessment and Plan Right pleural effusion S/P Chest tube placement ESRD on PD Atelactesis HTN GERD H/O Ca breast PLAN: Chest tube to suction Once pl fluid drianage decreased, will need pleurodesis On PD Stable on RA Roel Calle MD Dec 28, 2016 18:24
[2016-12-28] MEDS: oxyCODONE/ACETAMINOPHEN 5 MG/325 MG TAB PO PRN (18:56)
[2016-12-28] MEDS: CALCITRIOL 0.25 MCG CAP PO SCH (18:57)
[2016-12-29] VITALS (8 sets, daily range): BP systolic 151–183; BP diastolic 79–97; PULSE 83–120; RESP 15–18; TEMP 97.5–99; O2SAT 92–95
[2016-12-29] MEDS: oxyCODONE/ACETAMINOPHEN 5 MG/325 MG TAB PO PRN ×3 (04:14→21:52)
--- NOTE | 2016-12-29 07:41 | RADRPT ---
EXAM DATE/TIME: 12/29/2016 06:14 [facility] COMPARISON: CHEST EXPIRATION ONLY, December 28, 2016, 10:39. INDICATIONS : Short of breath, cough, evaluate right side pneumothorax and chest tube MEDICAL HISTORY : pneumothorax SURGICAL HISTORY : chest tube ENCOUNTER: Subsequent ACUITY: 2 days PAIN SCORE: 5/10 LOCATION: Right chest FINDINGS: A single portable frontal view of the chest shows the patient obliqued towards the right. A thoracost james tube is seen involving the right lung base. This is in good position. No pneumothorax appreciated . There is volume loss involving the right hemithorax with diffuse consolidation. Appearance is simil ar to yesterday's exam. Left lung is clear. Heart is moderately enlarged. CONCLUSION: Right thoracostomy tube in good position. Persistent and unchanged consolidation as well as volume lo ss involving the right lung. Lawrence Taylor Jr., MD on December 29, 2016 at 7:38 Board Certified Radiologist. This report was verified electronically.
[2016-12-29 07:44] LABS: AUTOMATED NEUTROPHIL # 9.5 TH/MM3 (1.8-7.7); BASOPHIL # 0.1 TH/MM3 (0-0.2); EOSINOPHIL # 0.4 TH/MM3 (0-0.4); EOSINOPHIL % 3.5 % (0.0-4.0); HEMATOCRIT 29.7 % (35.0-46.0); LYMPH % 8.9 % (9.0-44.0); LYMPHOCYTE # 1.1 TH/MM3 (1.0-4.8); MEAN CELL VOLUME 73.3 FL (80.0-100.0); MEAN CORPUSCULAR HGB CONC 31.4 % (32.0-36.0); MONO % 6.4 % (0.0-8.0); NEUT % 80.2 % (16.0-70.0); PLATELET COUNT 180 TH/MM3 (150-450); RED BLOOD COUNT 4.06 MIL/MM3 (4.00-5.30); RED CELL DISTRIBUTION WIDTH 27.9 % (11.6-17.2); WHITE BLOOD COUNT 11.9 TH/MM3 (4.0-11.0)
[2016-12-29 07:55] LABS: HEMO FLAGS AUTO DIFF
[2016-12-29 08:10] LABS: ALKALINE PHOSPHATASE 70 U/L (45-117); ALT (GPT) 12 U/L (10-53); ANION GAP 13 MEQ/L (5-15); AST (GOT) 17 U/L (15-37); BICARBONATE 24.5 MEQ/L (21.0-32.0); BLOOD UREA NITROGEN 56 MG/DL (7-18); CHLORIDE 94 MEQ/L (98-107); FERRITIN 1454 NG/ML (8-252); GLOMERULAR FILTRATION RATE 3 ML/MIN (>89); POTASSIUM 4.3 MEQ/L (3.5-5.1); SODIUM (NA) 131 MEQ/L (136-145); TOTAL BILIRUBIN ADULT 0.3 MG/DL (0.2-1.0); TRANSFERRIN IRON PROFILE 108 MG/DL (200-360)
[2016-12-29 08:42] LABS: KERATOCYTES 1+ (NORMAL); OVALOCYTES 1+ (NORMAL); SCAN/DIFF AUTO DIFF CONFIRMED; TEARDROP RBCS 1+ (NORMAL)
[2016-12-29] MEDS: VITAMIN B CMPLX/VITC/FOLIC AC CAP PO SCH (08:42)
[2016-12-29] MEDS: SEVELAMER CARBONATE 800 MG TAB PO SCH ×3 (08:42→17:29)
[2016-12-29] MEDS: DOCUSATE SODIUM 50 MG/SENNA 8.6 MG TAB PO SCH ×2 (08:43→21:52)
[2016-12-29] MEDS: amLODIPine BESYLATE 5 MG TAB PO SCH ×2 (08:43→21:52)
[2016-12-29] MEDS: SODIUM CHLORIDE 0.9% FLUSH 10 ML FLUSH IV FLUSH SCH ×2 (08:43→21:51)
[2016-12-29] MEDS: LISINOPRIL 5 MG TAB PO SCH ×2 (08:43→21:52)
--- NOTE | 2016-12-29 09:42 | HHI.PR ---
Subjective History of Present Illness Patient s/p right side chest tube placement. feel better. d/w RN. Review of Systems Constitutional Constitutional: Fatigue, Weakness Vitals/Results Intake & Output 12/28/16 12/28/16 12/29/16 15:00 23:00 07:00 Intake Total 480 ml 480 ml 480 ml Output Total 675 ml 300 ml 400 ml Balance -195 ml 180 ml 80 ml Intake Oral 480 ml 480 ml 480 ml Output Chest Tube Drainage Total 675 ml 300 ml 400 ml # Voids 0 1 3 # Bowel Movements 1 0 Vital Signs Vital Signs Date Time Temp Pulse Resp B/P Pulse Ox O2 Delivery O2 Flow Rate FiO2 12/29/16 04:00 97.5 91 16 163/82 95 12/29/16 00:00 97.5 85 15 153/86 95 12/28/16 19:00 97.6 85 17 163/78 94 12/28/16 18:57 78 12/28/16 16:00 97.0 86 18 164/71 95 12/28/16 12:00 97.0 83 18 177/81 92 12/28/16 11:00 82 20 143/81 88 12/28/16 10:35 84 20 146/83 88 12/28/16 10:20 98.8 88 20 149/87 88 CBC/BMP: 12/29/16 0710 12/29/16 0710 Lab Results Laboratory Tests Test 12/29/16 07:10 White Blood Count 11.9 TH/MM3 Red Blood Count 4.06 MIL/MM3 Hemoglobin 9.4 GM/DL Hematocrit 29.7 % Mean Corpuscular Volume 73.3 FL Mean Corpuscular Hemoglobin 23.0 PG Mean Corpuscular Hemoglobin 31.4 % Concent Red Cell Distribution Width 27.9 % Platelet Count 180 TH/MM3 Mean Platelet Volume 8.9 FL Neutrophils (%) (Auto) 80.2 % Lymphocytes (%) (Auto) 8.9 % Monocytes (%) (Auto) 6.4 % Eosinophils (%) (Auto) 3.5 % Basophils (%) (Auto) 1.0 % Neutrophils # (Auto) 9.5 TH/MM3 Lymphocytes # (Auto) 1.1 TH/MM3 Monocytes # (Auto) 0.8 TH/MM3 Eosinophils # (Auto) 0.4 TH/MM3 Basophils # (Auto) 0.1 TH/MM3 CBC Comment AUTO DIFF Differential Comment AUTO DIFF CONFIRMED Tear Drop Cells 1+ Ovalocytes 1+ Keratocytes 1+ Sodium Level 131 MEQ/L Potassium Level 4.3 MEQ/L Chloride Level 94 MEQ/L Carbon Dioxide Level 24.5 MEQ/L Anion Gap 13 MEQ/L Blood Urea Nitrogen 56 MG/DL Creatinine 15.95 MG/DL Estimat Glomerular Filtration 3 ML/MIN Rate Random Glucose 85 MG/DL Calcium Level 9.0 MG/DL Iron Level 29 MCG/DL Total Iron Binding Capacity 151 MCG/DL Percent Iron Saturation 19.2 % Ferritin 1454 NG/ML Total Bilirubin 0.3 MG/DL Aspartate Amino Transf 17 U/L (AST/SGOT) Alanine Aminotransferase 12 U/L (ALT/SGPT) Alkaline Phosphatase 70 U/L Total Protein 7.3 GM/DL Albumin 2.4 GM/DL Physical Exam General General Appearance: No Acute Distress, Comfortable Eyes Eye Exam: Sclera White, Extraocular Movement Intact Throat Throat Exam: Oral Mucosa [place] & Moist, Oral Pharynx Normal Neck Neck Exam: Neck Supple, Trachea Midline Pulmonary Resp Exam: Clear Bilaterally, Breath Sounds Equal, No Distress, Decreased Bases Cardiology CV Exam: Regular, Normal Sinus Rhythm Chest/Breast Chest/Breast Remarks right side chest tube in place. Gastrointestinal/Abdomen GI Exam: Soft, Non-Tender, Bowel Sounds Present Musculoskeletal MS Exam: Joints Intact Integumentary Skin Exam: Warm, Dry Extremeties Extremities Exam: Trace Edema Neurologic Neuro Exam: Alert, Awake, Oriented, No Focal Deficits Psychiatric Psych Exam: Appropriate Responses PUD Prophylasis PUD Prophylaxis: Protonix Assessment/Plan Assessment/Plan Assessment and Plan Assessment and Plan Large right sided pleural effusion s/p right side chest tube placement S/P Right lung collapse End-stage renal disease on peritoneal dialysis nephrology following Anemia of chronic disease Resting dyspnea secondary to the pleural effusion...better after chest tube placement. Hypertension on home medicine will monitor blood pressure. Management Oncologist consulted and Compounding Technician and pulmonary input noted There is a strong suspicion that the pleural effusion likely is malignant Discussed with patient Check CBC with diff CMP in AM. Discussed Condition with: Patient Felipe Alvarado MD Dec 29, 2016 09:42
--- NOTE | 2016-12-29 09:49 | HHI.NPPN ---
Subjective History of Present Illness 56-year-old female with past medical history of hypertension, chronic anemia, history of breast cancer, end-stage renal disease on peritoneal dialysis, history of gastroesophageal reflux disease, history of GI bleeding came to the hospital referred by Dr. Maher her oncologist. The patient has this cough going on for the last five or six months and she had a chest CT done as an outpatient which showed that she has some pleural effusion and she was referred by her oncologist, Dr. Maher, to go to the hospital for possible thoracentesis. Additional Remarks Patient is alert, no SOB, cough decreased. Review of Systems General Constitutional: Fatigue Respiratory Lungs: Cough Cardiovascular Cardiac: BACON Objective Data Data 12/28/16 12/29/16 18:59 06:59 Intake Total 480 ml 960 ml Output Total 675 ml 700 ml Balance -195 ml 260 ml Intake Oral 480 ml 960 ml Output Chest Tube Drainage Total 675 ml 700 ml # Voids 0 4 # Bowel Movements 1 Vital Signs Date Time Temp Pulse Resp B/P Pulse Ox O2 Delivery O2 Flow Rate FiO2 12/29/16 04:00 97.5 91 16 163/82 95 12/29/16 00:00 97.5 85 15 153/86 95 12/28/16 19:00 97.6 85 17 163/78 94 12/28/16 18:57 78 12/28/16 16:00 97.0 86 18 164/71 95 12/28/16 12:00 97.0 83 18 177/81 92 12/28/16 11:00 82 20 143/81 88 12/28/16 10:35 84 20 146/83 88 12/28/16 10:20 98.8 88 20 149/87 88 -: 12/29/16 0710 12/29/16 0710 Physical Exam General Appearance: No Acute Distress, Comfortable Eyes Eye Exam: Sclera White, Extraocular Movement Intact Throat Throat Exam: Oral Mucosa [place] & Moist, Oral Pharynx Normal Neck Neck Exam: Neck Supple, Trachea Midline Pulmonary Resp Exam: Clear Bilaterally, Breath Sounds Equal, No Distress, Decreased Bases Cardiology CV Exam: Regular, Normal Sinus Rhythm Gastrointestinal/Abdomen GI Exam: Soft, Non-Tender, Bowel Sounds Present Musculoskeletal MS Exam: Joints Intact Integumentary Skin Exam: Warm, Dry Extremeties Extremities Exam: Trace Edema Neurologic Neuro Exam: Alert, Awake, Oriented, No Focal Deficits Psychiatric Psych Exam: Appropriate Responses PUD Prophylasis PUD Prophylaxis: Protonix Assessment/Plan Assessment Summary: Anemia of CKD, Hypertension, End Stage Renal Disease Problem List: (1) Pleural effusion, right (2) Sinus tachycardia (3) Hypertension (4) Anemia of chronic kidney failure (5) ESRD on peritoneal dialysis Plan Patient has CT inserted, Pulmonary following. BP is slightly elevated, increase Amlodipine to 5 mg BID. On Percocet, PD done last night, tolerated well. Creatinine is high, will try to increase PD duration or fluid. Hgb. is stable. Problem Qualifiers (1) Anemia of chronic kidney failure: Qualified Code: N18.5 - Anemia of chronic renal failure, stage 5 Brina Ernst MD Dec 29, 2016 09:49
--- NOTE | 2016-12-29 17:59 | HHI.PR ---
Subjective Remarks 56 YOAA female with ESRD on PD, pl eff, ca breast Had right chest tube placed Breathing better No CP no Fever Chest tube draining Objective Vital Signs Vital Signs Date Time Temp Pulse Resp B/P Pulse Ox O2 Delivery O2 Flow Rate FiO2 12/29/16 17:52 88 12/29/16 08:00 99.0 98 18 183/97 92 12/29/16 04:00 97.5 91 16 163/82 95 12/29/16 00:00 97.5 85 15 153/86 95 12/28/16 19:00 97.6 85 17 163/78 94 12/28/16 18:57 78 I/O 12/28/16 12/28/16 12/28/16 12/29/16 12/29/16 12/29/16 07:00 15:00 23:00 07:00 15:00 23:00 Intake Total 0 ml 480 ml 480 ml 480 ml Output Total 675 ml 300 ml 400 ml 762 ml 560 ml Balance 0 ml -195 ml 180 ml 80 ml -762 ml -560 ml Intake Oral 0 ml 480 ml 480 ml 480 ml Output Chest Tube Drainage Total 675 ml 300 ml 400 ml 560 ml Peritoneal Fluid 762 ml # Voids 1 0 1 3 # Bowel Movements 0 1 0 Result Diagram: 12/29/16 0710 12/29/16 0710 Objective Remarks GENERAL: MBMN AA female,NAD SKIN: Warm and dry. HEAD: Normocephalic. EYES: No scleral icterus. No injection or drainage. NECK: Supple, trachea midline. No JVD or lymphadenopathy. CARDIOVASCULAR: Regular rate and rhythm without murmurs, gallops, or rubs. RESPIRATORY: Breath sounds equal bilaterally. No accessory muscle use. Right chest tube draining GASTROINTESTINAL: Abdomen soft, non-tender, nondistended. PD Cathetor MUSCULOSKELETAL: No cyanosis, or edema. BACK: Nontender without obvious deformity. No CVA tenderness. A/P Assessment and Plan Right pleural effusion S/P Chest tube placement ESRD on PD Atelactesis HTN GERD H/O Ca breast PLAN: Chest tube to suction Once pl fluid drianage decreased, will need pleurodesis On PD Stable on RA Pleural fluid for cytology Roel Calle MD Dec 29, 2016 17:59
[2016-12-30] VITALS (8 sets, daily range): BP systolic 136–178; BP diastolic 75–97; PULSE 79–94; RESP 16–17; TEMP 97.4–98.7; O2SAT 94–97
--- NOTE | 2016-12-30 08:55 | HHI.PR ---
Subjective Remarks 56 YOAA female with ESRD on PD, pl eff, ca breast Had right chest tube placed Breathing better No CP no Fever Chest tube draining No new complaint Objective Vital Signs Vital Signs Date Time Temp Pulse Resp B/P Pulse Ox O2 Delivery O2 Flow Rate FiO2 12/30/16 04:00 98.1 81 16 152/86 95 12/30/16 00:01 98.5 91 16 166/97 94 12/29/16 20:00 98.0 83 17 161/83 95 12/29/16 19:40 85 12/29/16 19:08 Room Air 12/29/16 17:52 88 12/29/16 16:00 98.4 120 16 151/79 92 12/29/16 12:00 98.5 89 18 155/88 92 I/O 12/29/16 12/29/16 12/29/16 12/30/16 12/30/16 12/30/16 07:00 15:00 23:00 07:00 15:00 23:00 Intake Total 480 ml 360 ml 240 ml Output Total 400 ml 762 ml 680 ml 0 ml 377 ml Balance 80 ml -762 ml -320 ml 240 ml -377 ml Intake Oral 480 ml 360 ml 240 ml Output Chest Tube Drainage Total 400 ml 680 ml 0 ml Peritoneal Fluid 762 ml 377 ml # Voids 3 # Bowel Movements 0 Result Diagram: 12/29/16 0710 12/29/16 0710 Objective Remarks GENERAL: MBMN AA female,NAD SKIN: Warm and dry. HEAD: Normocephalic. EYES: No scleral icterus. No injection or drainage. NECK: Supple, trachea midline. No JVD or lymphadenopathy. CARDIOVASCULAR: Regular rate and rhythm without murmurs, gallops, or rubs. RESPIRATORY: Breath sounds equal bilaterally. No accessory muscle use. Right chest tube draining GASTROINTESTINAL: Abdomen soft, non-tender, nondistended. PD Cathetor MUSCULOSKELETAL: No cyanosis, or edema. BACK: Nontender without obvious deformity. No CVA tenderness. A/P Assessment and Plan Right pleural effusion S/P Chest tube placement ESRD on PD Atelactesis HTN GERD H/O Ca breast PLAN: Chest tube to suction Once pl fluid drianage decreased, will need pleurodesis On PD Stable on RA Pleural fluid for cytology covering over weekend. Roel Calle MD Dec 30, 2016 08:54
[2016-12-30] MEDS: SODIUM CHLORIDE 0.9% FLUSH 10 ML FLUSH IV FLUSH SCH ×2 (09:00→21:47)
[2016-12-30 09:51] LABS: ANION GAP 13 MEQ/L (5-15); AST (GOT) 6 U/L (15-37); BICARBONATE 26.2 MEQ/L (21.0-32.0); BLOOD UREA NITROGEN 55 MG/DL (7-18); CHLORIDE 91 MEQ/L (98-107); GLOMERULAR FILTRATION RATE 3 ML/MIN (>89); POTASSIUM 4.1 MEQ/L (3.5-5.1); SODIUM (NA) 130 MEQ/L (136-145)
[2016-12-30 09:52] LABS: ALT (GPT) 10 U/L (10-53)
[2016-12-30] MEDS: SEVELAMER CARBONATE 800 MG TAB PO SCH ×3 (09:52→19:21)
[2016-12-30] MEDS: VITAMIN B CMPLX/VITC/FOLIC AC CAP PO SCH (09:52)
--- NOTE | 2016-12-30 09:52 | HHI.PR ---
Subjective History of Present Illness Patient s/p right side chest tube placement. feel better. Review of Systems Constitutional Constitutional: Fatigue, Weakness Vitals/Results Intake & Output 12/29/16 12/29/16 12/30/16 14:59 22:59 06:59 Intake Total 360 ml 240 ml Output Total 762 ml 680 ml 0 ml Balance -762 ml -320 ml 240 ml Intake Oral 360 ml 240 ml Output Chest Tube Drainage Total 680 ml 0 ml Peritoneal Fluid 762 ml Vital Signs Vital Signs Date Time Temp Pulse Resp B/P Pulse Ox O2 Delivery O2 Flow Rate FiO2 12/30/16 04:00 98.1 81 16 152/86 95 12/30/16 00:01 98.5 91 16 166/97 94 12/29/16 20:00 98.0 83 17 161/83 95 12/29/16 19:40 85 12/29/16 19:08 Room Air 12/29/16 17:52 88 12/29/16 16:00 98.4 120 16 151/79 92 12/29/16 12:00 98.5 89 18 155/88 92 CBC/BMP: 12/29/16 0710 12/29/16 0710 Physical Exam General General Appearance: No Acute Distress, Comfortable Eyes Eye Exam: Sclera White, Extraocular Movement Intact Throat Throat Exam: Oral Mucosa [place] & Moist, Oral Pharynx Normal Neck Neck Exam: Neck Supple, Trachea Midline Pulmonary Resp Exam: Clear Bilaterally, Breath Sounds Equal, No Distress, Decreased Bases Cardiology CV Exam: Regular, Normal Sinus Rhythm Chest/Breast Chest/Breast Remarks right side chest tube in place. Gastrointestinal/Abdomen GI Exam: Soft, Non-Tender, Bowel Sounds Present Musculoskeletal MS Exam: Joints Intact Integumentary Skin Exam: Warm, Dry Extremeties Extremities Exam: Trace Edema Neurologic Neuro Exam: Alert, Awake, Oriented, No Focal Deficits Psychiatric Psych Exam: Appropriate Responses PUD Prophylasis PUD Prophylaxis: Protonix Assessment/Plan Assessment/Plan Assessment and Plan Assessment and Plan Large right sided pleural effusion s/p right side chest tube placement S/P Right lung collapse End-stage renal disease on peritoneal dialysis nephrology following Anemia of chronic disease Resting dyspnea secondary to the pleural effusion...better after chest tube placement. Hypertension on home medicine will monitor blood pressure. Management Oncologist consulted and Senior C Software Developer and pulmonary input noted There is a strong suspicion that the pleural effusion likely is malignant Discussed with patient Check CBC with diff CMP in AM. Felipe Alvarado MD Dec 30, 2016 09:52
[2016-12-30] MEDS: LISINOPRIL 5 MG TAB PO SCH ×2 (09:53→21:46)
[2016-12-30] MEDS: DOCUSATE SODIUM 50 MG/SENNA 8.6 MG TAB PO SCH ×2 (09:53→21:47)
[2016-12-30] MEDS: amLODIPine BESYLATE 5 MG TAB PO SCH ×2 (09:53→21:46)
[2016-12-30 09:54] LABS: ALKALINE PHOSPHATASE 69 U/L (45-117); TOTAL BILIRUBIN ADULT 0.4 MG/DL (0.2-1.0)
[2016-12-30 10:40] LABS: BASOPHIL # 0.1 TH/MM3 (0-0.2); BASOPHIL % 0.5 % (0.0-2.0); EOSINOPHIL # 0.3 TH/MM3 (0-0.4); EOSINOPHIL % 3.1 % (0.0-4.0); HEMATOCRIT 29.7 % (35.0-46.0); LYMPH % 12.8 % (9.0-44.0); LYMPHOCYTE # 1.4 TH/MM3 (1.0-4.8); MEAN CORPUSCULAR HEMOGLOBIN 23.3 PG (27.0-34.0); MEAN CORPUSCULAR HGB CONC 31.9 % (32.0-36.0); NEUT % 75.6 % (16.0-70.0); PLATELET COUNT 146 TH/MM3 (150-450); RED BLOOD COUNT 4.07 MIL/MM3 (4.00-5.30); RED CELL DISTRIBUTION WIDTH 26.9 % (11.6-17.2); WHITE BLOOD COUNT 10.6 TH/MM3 (4.0-11.0)
[2016-12-30 10:49] LABS: HEMO FLAGS AUTO DIFF
[2016-12-30 11:45] LABS: ACANTHOCYTES 1+ (NORMAL); OVALOCYTES 2+ (NORMAL)
[2016-12-30 11:46] LABS: KERATOCYTES 1+ (NORMAL); PLATELET ESTIMATE SMEAR LOW (NORMAL); PLATELET MORPHOLOGY NORMAL (NORMAL); SCAN/DIFF AUTO DIFF CONFIRMED; SICKLE CELLS 1+ (NORMAL)
--- NOTE | 2016-12-30 15:18 | HHI.NPPN ---
Subjective History of Present Illness 56-year-old female with past medical history of hypertension, chronic anemia, history of breast cancer, end-stage renal disease on peritoneal dialysis, history of gastroesophageal reflux disease, history of GI bleeding came to the hospital referred by Dr. Maher her oncologist. The patient has this cough going on for the last five or six months and she had a chest CT done as an outpatient which showed that she has some pleural effusion and she was referred by her oncologist, Dr. Maher, to go to the hospital for possible thoracentesis. Additional Remarks Patient is alert, sitting on chair, now CT to suction. Review of Systems General Constitutional: Fatigue Respiratory Lungs: Cough Cardiovascular Cardiac: BACON Objective Data Data 12/29/16 12/30/16 19:00 07:00 Intake Total 600 ml Output Total 1322 ml 120 ml Balance -1322 ml 480 ml Intake Oral 600 ml Output Chest Tube Drainage Total 560 ml 120 ml Peritoneal Fluid 762 ml Vital Signs Date Time Temp Pulse Resp B/P Pulse Ox O2 Delivery O2 Flow Rate FiO2 12/30/16 04:00 98.1 81 16 152/86 95 12/30/16 00:01 98.5 91 16 166/97 94 12/29/16 20:00 98.0 83 17 161/83 95 12/29/16 19:40 85 12/29/16 19:08 Room Air 12/29/16 17:52 88 12/29/16 16:00 98.4 120 16 151/79 92 -: 12/30/16 0822 12/30/16 0822 Physical Exam General Appearance: No Acute Distress, Comfortable Eyes Eye Exam: Sclera White, Extraocular Movement Intact Throat Throat Exam: Oral Mucosa [place] & Moist, Oral Pharynx Normal Neck Neck Exam: Neck Supple, Trachea Midline Pulmonary Resp Exam: Clear Bilaterally, Breath Sounds Equal, No Distress, Decreased Bases Cardiology CV Exam: Regular, Normal Sinus Rhythm Gastrointestinal/Abdomen GI Exam: Soft, Non-Tender, Bowel Sounds Present Musculoskeletal MS Exam: Joints Intact Integumentary Skin Exam: Warm, Dry Extremeties Extremities Exam: Trace Edema Neurologic Neuro Exam: Alert, Awake, Oriented, No Focal Deficits Psychiatric Psych Exam: Appropriate Responses PUD Prophylasis PUD Prophylaxis: Protonix Assessment/Plan Assessment Summary: Anemia of CKD, Hypertension, End Stage Renal Disease Problem List: (1) Pleural effusion, right (2) Sinus tachycardia (3) Hypertension (4) Anemia of chronic kidney failure (5) ESRD on peritoneal dialysis Plan Patient has CT inserted, Pulmonary following. BP is still elevated, increased Amlodipine to 5 mg BID yesterday. On Percocet, PD done last night, tolerated well. Creatinine is high, will try to increase PD duration or fluid. Hgb. is stable. Pulmonary follow up noted. Will need Pleurodesis. Problem Qualifiers (1) Anemia of chronic kidney failure: Qualified Code: N18.5 - Anemia of chronic renal failure, stage 5 Brina Ernst MD Dec 30, 2016 15:18
[2016-12-30] MEDS: oxyCODONE/ACETAMINOPHEN 5 MG/325 MG TAB PO PRN (15:20)
[2016-12-30] MEDS: CALCITRIOL 0.25 MCG CAP PO SCH (19:22)
[2016-12-31] VITALS: BP 158/94; PULSE 86; RESP 16; TEMP 97.2; O2SAT 97
[2016-12-31 04:00] VITALS: BP 157/83; PULSE 74; RESP 16; TEMP 98; O2SAT 96
[2016-12-31 08:00] VITALS: BP 160/87; PULSE 89; RESP 18; TEMP 98.2; O2SAT 96
[2016-12-31 09:52] LABS: AUTOMATED NEUTROPHIL # 7.1 TH/MM3 (1.8-7.7); BASOPHIL % 0.5 % (0.0-2.0); EOSINOPHIL # 0.3 TH/MM3 (0-0.4); EOSINOPHIL % 3.7 % (0.0-4.0); HEMATOCRIT 30.2 % (35.0-46.0); LYMPH % 11.9 % (9.0-44.0); LYMPHOCYTE # 1.1 TH/MM3 (1.0-4.8); MEAN CELL VOLUME 72.7 FL (80.0-100.0); MEAN CORPUSCULAR HEMOGLOBIN 22.8 PG (27.0-34.0); MEAN CORPUSCULAR HGB CONC 31.3 % (32.0-36.0); MONO % 7.8 % (0.0-8.0); NEUT % 76.1 % (16.0-70.0); PLATELET COUNT 229 TH/MM3 (150-450); RED BLOOD COUNT 4.15 MIL/MM3 (4.00-5.30); RED CELL DISTRIBUTION WIDTH 27.9 % (11.6-17.2); WHITE BLOOD COUNT 9.3 TH/MM3 (4.0-11.0)
[2016-12-31 09:59] LABS: HEMO FLAGS AUTO DIFF
--- NOTE | 2016-12-31 10:06 | HHI.PR ---
Subjective History of Present Illness Patient s/p right side chest tube placement. feel better. may need Pleurodesis high BP Norvasc increased to 5 mg PO BID. Review of Systems Constitutional Constitutional: Fatigue, Weakness Chest/Breast Chest/Breast Remarks Right side chest tube in. Vitals/Results Intake & Output 12/30/16 12/30/16 12/31/16 15:00 23:00 07:00 Intake Total 480 ml Output Total 437 ml 0 ml 34 ml Balance -437 ml 0 ml 446 ml Intake Oral 480 ml Output Chest Tube Drainage Total 60 ml 0 ml 34 ml Peritoneal Fluid 377 ml Vital Signs Vital Signs Date Time Temp Pulse Resp B/P Pulse Ox O2 Delivery O2 Flow Rate FiO2 12/31/16 08:00 98.2 89 18 160/87 96 12/31/16 04:00 98.0 74 16 157/83 96 12/31/16 00:00 97.2 86 16 158/94 97 12/30/16 23:05 89 12/30/16 20:00 97.4 90 17 145/76 95 12/30/16 19:25 Room Air 12/30/16 16:00 98.7 86 16 154/80 94 12/30/16 12:00 98.2 91 16 136/75 96 CBC/BMP: 12/31/16 0831 12/30/16 0822 Lab Results Laboratory Tests Test 12/31/16 08:31 White Blood Count 9.3 TH/MM3 Red Blood Count 4.15 MIL/MM3 Hemoglobin 9.4 GM/DL Hematocrit 30.2 % Mean Corpuscular Volume 72.7 FL Mean Corpuscular Hemoglobin 22.8 PG Mean Corpuscular Hemoglobin 31.3 % Concent Red Cell Distribution Width 27.9 % Platelet Count 229 TH/MM3 Mean Platelet Volume 8.8 FL Neutrophils (%) (Auto) 76.1 % Lymphocytes (%) (Auto) 11.9 % Monocytes (%) (Auto) 7.8 % Eosinophils (%) (Auto) 3.7 % Basophils (%) (Auto) 0.5 % Neutrophils # (Auto) 7.1 TH/MM3 Lymphocytes # (Auto) 1.1 TH/MM3 Monocytes # (Auto) 0.7 TH/MM3 Eosinophils # (Auto) 0.3 TH/MM3 Basophils # (Auto) 0.0 TH/MM3 CBC Comment AUTO DIFF Physical Exam General General Appearance: No Acute Distress, Comfortable Eyes Eye Exam: Sclera White, Extraocular Movement Intact Throat Throat Exam: Oral Mucosa [place] & Moist, Oral Pharynx Normal Neck Neck Exam: Neck Supple, Trachea Midline Pulmonary Resp Exam: Clear Bilaterally, Breath Sounds Equal, No Distress, Decreased Bases Resp Remarks Right side chest tube in. Cardiology CV Exam: Regular, Normal Sinus Rhythm Chest/Breast Chest/Breast Remarks right side chest tube in place. Gastrointestinal/Abdomen GI Exam: Soft, Non-Tender, Bowel Sounds Present Musculoskeletal MS Exam: Joints Intact Integumentary Skin Exam: Warm, Dry Extremeties Extremities Exam: Trace Edema Neurologic Neuro Exam: Alert, Awake, Oriented, No Focal Deficits Psychiatric Psych Exam: Appropriate Responses PUD Prophylasis PUD Prophylaxis: Protonix Assessment/Plan Assessment/Plan Assessment and Plan Assessment and Plan Large right sided pleural effusion s/p right side chest tube placement S/P Right lung collapse End-stage renal disease on peritoneal dialysis nephrology following Anemia of chronic disease Resting dyspnea secondary to the pleural effusion...better after chest tube placement. Hypertension on home medicine will monitor blood pressure. increased Norvasc to 5 mg PO BID. Management Oncologist and Blower Room Attendant and pulmonary input noted There is a strong suspicion that the pleural effusion likely is malignant Discussed with patient Check CBC with diff CMP in AM. Discussed Condition with: Patient Felipe Alvarado MD Dec 31, 2016 10:06
[2016-12-31 10:13] LABS: ANION GAP 13 MEQ/L (5-15); AST (GOT) 8 U/L (15-37); BICARBONATE 26.4 MEQ/L (21.0-32.0); BLOOD UREA NITROGEN 55 MG/DL (7-18); CHLORIDE 91 MEQ/L (98-107); GLOMERULAR FILTRATION RATE 3 ML/MIN (>89); SODIUM (NA) 130 MEQ/L (136-145)
[2016-12-31 10:15] LABS: ALT (GPT) 10 U/L (10-53)
[2016-12-31 10:16] LABS: ALKALINE PHOSPHATASE 74 U/L (45-117); TOTAL BILIRUBIN ADULT 0.3 MG/DL (0.2-1.0)
[2016-12-31] MEDS: SEVELAMER CARBONATE 800 MG TAB PO SCH ×3 (10:19→18:06)
[2016-12-31] MEDS: VITAMIN B CMPLX/VITC/FOLIC AC CAP PO SCH (10:19)
[2016-12-31] MEDS: LISINOPRIL 5 MG TAB PO SCH ×2 (10:19→19:59)
[2016-12-31] MEDS: amLODIPine BESYLATE 5 MG TAB PO SCH ×2 (10:19→20:00)
[2016-12-31] MEDS: DOCUSATE SODIUM 50 MG/SENNA 8.6 MG TAB PO SCH ×2 (10:19→20:00)
[2016-12-31] MEDS: SODIUM CHLORIDE 0.9% FLUSH 10 ML FLUSH IV FLUSH SCH ×2 (10:21→20:00)
[2016-12-31 10:32] LABS: EOSINOPHILS 3 % (0-4); HYPERSEGMENTED POLYS 1+ (NORMAL); METAMYELOCYTES 1 % (0-1); MYELOCYTES 1 % (0-0); NEUTROPHIL # MANUAL DIFF 7.6 TH/MM3 (1.8-7.7); PLATELET ESTIMATE SMEAR NORMAL (NORMAL); PLATELET MORPHOLOGY NORMAL (NORMAL); POLYS (SEG NEUTROPHILS) 80 % (16-70); SCAN/DIFF FINAL DIFF MANUAL; WBC DIFF SAMPLE 100
[2016-12-31 10:33] LABS: KERATOCYTES OCC (NORMAL); TEARDROP RBCS 1+ (NORMAL)
[2016-12-31 12:14] VITALS: BP 148/77; PULSE 86; RESP 18; TEMP 97.2; O2SAT 98
[2016-12-31 16:00] VITALS: BP 130/65; PULSE 80; RESP 18; TEMP 95.6; O2SAT 100
--- NOTE | 2016-12-31 17:45 | HHI.NPPN ---
Subjective History of Present Illness 56-year-old female with past medical history of hypertension, chronic anemia, history of breast cancer, end-stage renal disease on peritoneal dialysis, history of gastroesophageal reflux disease, history of GI bleeding came to the hospital referred by Dr. Maher her oncologist. The patient has this cough going on for the last five or six months and she had a chest CT done as an outpatient which showed that she has some pleural effusion and she was referred by her oncologist, Dr. Maher, to go to the hospital for possible thoracentesis. Additional Remarks No acute complaints, right side chest tube placement Review of Systems General Constitutional: Fatigue Respiratory Lungs: Cough Cardiovascular Cardiac: BACON Objective Data Data 12/30/16 12/31/16 19:00 07:00 Intake Total 480 ml Output Total 437 ml 34 ml Balance -437 ml 446 ml Intake Oral 480 ml Output Chest Tube Drainage Total 60 ml 34 ml Peritoneal Fluid 377 ml Vital Signs Date Time Temp Pulse Resp B/P Pulse Ox O2 Delivery O2 Flow Rate FiO2 12/31/16 16:00 95.6 80 18 130/65 100 12/31/16 12:14 97.2 86 18 148/77 98 12/31/16 08:00 98.2 89 18 160/87 96 12/31/16 04:00 98.0 74 16 157/83 96 12/31/16 00:00 97.2 86 16 158/94 97 12/30/16 23:05 89 12/30/16 20:00 97.4 90 17 145/76 95 12/30/16 19:25 Room Air -: 12/31/16 0831 12/31/16 0831 Physical Exam General Appearance: No Acute Distress, Comfortable Eyes Eye Exam: Sclera White, Extraocular Movement Intact Throat Throat Exam: Oral Mucosa [place] & Moist, Oral Pharynx Normal Neck Neck Exam: Neck Supple, Trachea Midline Pulmonary Resp Exam: Clear Bilaterally, Breath Sounds Equal, No Distress, Decreased Bases Cardiology CV Exam: Regular, Normal Sinus Rhythm Gastrointestinal/Abdomen GI Exam: Soft, Non-Tender, Bowel Sounds Present Musculoskeletal MS Exam: Joints Intact Integumentary Skin Exam: Warm, Dry Extremeties Extremities Exam: Trace Edema Neurologic Neuro Exam: Alert, Awake, Oriented, No Focal Deficits Psychiatric Psych Exam: Appropriate Responses PUD Prophylasis PUD Prophylaxis: Protonix Assessment/Plan Assessment Summary: Anemia of CKD, Hypertension, End Stage Renal Disease Problem List: (1) Pleural effusion, right (2) Sinus tachycardia (3) Hypertension (4) Anemia of chronic kidney failure (5) ESRD on peritoneal dialysis Plan Continues on PD, ongoing high creatinine. PD prescription adjusted yesterday - continue for now. 377cc UF yesterday Right-sided chest tube Pulmonary following. BP better this afternoon. On Percocet, PD done last night, tolerated well. Hgb. is stable. Problem Qualifiers (1) Anemia of chronic kidney failure: Qualified Code: N18.5 - Anemia of chronic renal failure, stage 5 Mani Stoll MD Dec 31, 2016 17:45
[2016-12-31] MEDS: SENNOSIDES 8.6 MG TAB PO PRN (19:59)
[2016-12-31 20:39] VITALS: BP 151/86; PULSE 87; RESP 16; TEMP 97.2; O2SAT 97
[2017-01-01] VITALS (8 sets, daily range): BP systolic 124–159; BP diastolic 70–86; PULSE 78–87; RESP 16–20; TEMP 96–98; O2SAT 95–97
[2017-01-01 04:14] LABS: AUTOMATED NEUTROPHIL # 6.6 TH/MM3 (1.8-7.7); BASOPHIL # 0.1 TH/MM3 (0-0.2); BASOPHIL % 1.2 % (0.0-2.0); EOSINOPHIL # 0.5 TH/MM3 (0-0.4); HEMATOCRIT 27.7 % (35.0-46.0); LYMPHOCYTE # 1.2 TH/MM3 (1.0-4.8); MEAN CELL VOLUME 73.3 FL (80.0-100.0); MEAN CORPUSCULAR HEMOGLOBIN 23.5 PG (27.0-34.0); MONO % 7.3 % (0.0-8.0); NEUT % 73.5 % (16.0-70.0); PLATELET COUNT 194 TH/MM3 (150-450); RED BLOOD COUNT 3.78 MIL/MM3 (4.00-5.30); RED CELL DISTRIBUTION WIDTH 27.3 % (11.6-17.2)
[2017-01-01 04:30] LABS: HEMO FLAGS AUTO DIFF
[2017-01-01 04:37] LABS: ALKALINE PHOSPHATASE 67 U/L (45-117); ALT (GPT) 11 U/L (10-53); ANION GAP 14 MEQ/L (5-15); AST (GOT) 17 U/L (15-37); BICARBONATE 24.4 MEQ/L (21.0-32.0); BLOOD UREA NITROGEN 52 MG/DL (7-18); CHLORIDE 92 MEQ/L (98-107); GLOMERULAR FILTRATION RATE 3 ML/MIN (>89); SODIUM (NA) 130 MEQ/L (136-145); TOTAL BILIRUBIN ADULT 0.3 MG/DL (0.2-1.0)
[2017-01-01 05:40] LABS: KERATOCYTES 1+ (NORMAL); OVALOCYTES 1+ (NORMAL)
[2017-01-01 05:41] LABS: SCAN/DIFF AUTO DIFF CONFIRMED
[2017-01-01] MEDS: SEVELAMER CARBONATE 800 MG TAB PO SCH ×3 (09:20→18:38)
[2017-01-01] MEDS: amLODIPine BESYLATE 5 MG TAB PO SCH ×2 (09:20→22:10)
[2017-01-01] MEDS: LISINOPRIL 5 MG TAB PO SCH ×2 (09:20→22:10)
[2017-01-01] MEDS: VITAMIN B CMPLX/VITC/FOLIC AC CAP PO SCH (09:20)
[2017-01-01] MEDS: DOCUSATE SODIUM 50 MG/SENNA 8.6 MG TAB PO SCH ×2 (09:20→22:10)
[2017-01-01] MEDS: SODIUM CHLORIDE 0.9% FLUSH 10 ML FLUSH IV FLUSH SCH ×2 (09:20→22:11)
--- NOTE | 2017-01-01 18:27 | HHI.NPPN ---
Subjective History of Present Illness 56-year-old female with past medical history of hypertension, chronic anemia, history of breast cancer, end-stage renal disease on peritoneal dialysis, history of gastroesophageal reflux disease, history of GI bleeding came to the hospital referred by Dr. Maher her oncologist. The patient has this cough going on for the last five or six months and she had a chest CT done as an outpatient which showed that she has some pleural effusion and she was referred by her oncologist, Dr. Maher, to go to the hospital for possible thoracentesis. Additional Remarks No acute complaints, right side chest tube placement Review of Systems General Constitutional: Fatigue Respiratory Lungs: Cough Cardiovascular Cardiac: BACON Objective Data Data 01/01/17 01/02/17 18:59 06:59 Intake Total 96 ml Output Total 663 ml Balance -567 ml Intake Oral 96 ml Peritoneal Fluid 663 ml # Voids 0 # Bowel Movements 0 Vital Signs Date Time Temp Pulse Resp B/P (MAP) Pulse Ox O2 Delivery O2 Flow Rate FiO2 01/01/17 16:00 97.1 87 18 142/75 (97) 95 01/01/17 12:00 96.0 80 18 124/70 (88) 95 01/01/17 07:45 97.3 87 18 159/84 (109) 96 01/01/17 04:00 98.0 81 16 142/82 (102) 95 01/01/17 00:22 97.6 84 20 145/86 (105) 97 12/31/16 20:39 97.2 87 16 151/86 (107) 97 12/31/16 18:48 Room Air -: 01/01/17 0258 01/01/17 0258 Physical Exam General Appearance: No Acute Distress, Comfortable Eyes Eye Exam: Sclera White, Extraocular Movement Intact Throat Throat Exam: Oral Mucosa [place] & Moist, Oral Pharynx Normal Neck Neck Exam: Neck Supple, Trachea Midline Pulmonary Resp Exam: Clear Bilaterally, Breath Sounds Equal, No Distress, Decreased Bases Cardiology CV Exam: Regular, Normal Sinus Rhythm Gastrointestinal/Abdomen GI Exam: Soft, Non-Tender, Bowel Sounds Present Musculoskeletal MS Exam: Joints Intact Integumentary Skin Exam: Warm, Dry Extremeties Extremities Exam: Trace Edema Neurologic Neuro Exam: Alert, Awake, Oriented, No Focal Deficits Psychiatric Psych Exam: Appropriate Responses PUD Prophylasis PUD Prophylaxis: Protonix Assessment/Plan Assessment Summary: Anemia of CKD, Hypertension, End Stage Renal Disease Problem List: (1) Pleural effusion, right ICD Codes: J90 - Pleural effusion, not elsewhere classified Status: Acute (2) Sinus tachycardia ICD Codes: R00.0 - Tachycardia, unspecified Status: Acute (3) Hypertension ICD Codes: I10 - Essential (primary) hypertension Status: Acute (4) Anemia of chronic kidney failure ICD Codes: N18.9 - Chronic kidney disease, unspecified; D63.1 - Anemia in chronic kidney disease Status: Acute (5) ESRD on peritoneal dialysis ICD Codes: N18.6 - End stage renal disease; Z99.2 - Dependence on renal dialysis Status: Acute Plan Continues on PD, ongoing high creatinine. PD prescription adjusted Monday - continue for now. 660cc UF yesterday Right-sided chest tube Pulmonary following. BP better On Percocet Hgb. is stable. Problem Qualifiers (1) Anemia of chronic kidney failure: Mani Stoll MD Jan 01, 2017 18:27
[2017-01-02] VITALS (7 sets, daily range): BP systolic 135–157; BP diastolic 73–84; PULSE 66–86; RESP 17–18; TEMP 95.7–97.9; O2SAT 96–99
[2017-01-02] MEDS: DOCUSATE SODIUM 50 MG/SENNA 8.6 MG TAB PO SCH ×2 (08:12→22:40)
[2017-01-02] MEDS: VITAMIN B CMPLX/VITC/FOLIC AC CAP PO SCH (08:12)
[2017-01-02] MEDS: amLODIPine BESYLATE 5 MG TAB PO SCH ×2 (08:12→22:41)
[2017-01-02] MEDS: SEVELAMER CARBONATE 800 MG TAB PO SCH ×3 (08:12→18:09)
[2017-01-02] MEDS: LISINOPRIL 5 MG TAB PO SCH ×2 (08:12→22:40)
[2017-01-02] MEDS: SODIUM CHLORIDE 0.9% FLUSH 10 ML FLUSH IV FLUSH SCH ×2 (08:13→22:41)
--- NOTE | 2017-01-02 08:49 | HHI.PR ---
Subjective History of Present Illness Patient seen on 01/02/17 no complaints feel better. Review of Systems Constitutional Constitutional: Fatigue, Weakness Vitals/Results Vital Signs Vital Signs Date Time Temp Pulse Resp B/P (MAP) Pulse Ox O2 Delivery O2 Flow Rate FiO2 01/02/17 08:00 97.5 86 17 157/84 (108) 96 01/02/17 03:52 97.9 76 18 148/73 (98) 96 01/01/17 23:45 97.3 79 18 130/79 (96) 95 01/01/17 20:29 96.8 78 17 148/79 (102) 95 01/01/17 20:00 Room Air 01/01/17 20:00 84 01/01/17 16:00 97.1 87 18 142/75 (97) 95 01/01/17 12:00 96.0 80 18 124/70 (88) 95 CBC/BMP: 01/01/17 0258 01/01/17 0258 Physical Exam General General Appearance: No Acute Distress, Comfortable Eyes Eye Exam: Sclera White, Extraocular Movement Intact Throat Throat Exam: Oral Mucosa [place] & Moist, Oral Pharynx Normal Neck Neck Exam: Neck Supple, Trachea Midline Pulmonary Resp Exam: Clear Bilaterally, Breath Sounds Equal, No Distress, Decreased Bases Resp Remarks Right side chest tube in. Cardiology CV Exam: Regular, Normal Sinus Rhythm Chest/Breast Chest/Breast Remarks right side chest tube in place. Gastrointestinal/Abdomen GI Exam: Soft, Non-Tender, Bowel Sounds Present Musculoskeletal MS Exam: Joints Intact Integumentary Skin Exam: Warm, Dry Extremeties Extremities Exam: Trace Edema Neurologic Neuro Exam: Alert, Awake, Oriented, No Focal Deficits Psychiatric Psych Exam: Appropriate Responses PUD Prophylasis PUD Prophylaxis: Protonix Assessment/Plan Assessment/Plan Assessment and Plan Assessment and Plan Large right sided pleural effusion s/p right side chest tube placement S/P Right lung collapse End-stage renal disease on peritoneal dialysis nephrology following Anemia of chronic disease Resting dyspnea secondary to the pleural effusion...better after chest tube placement. Hypertension on home medicine will monitor blood pressure. increased Norvasc to 5 mg PO BID. Management Oncologist and Washer Machine and pulmonary input noted There is a strong suspicion that the pleural effusion likely is malignant Discussed with patient Check CBC with diff CMP in AM. Discussed Condition with: Patient Felipe Alvarado MD Jan 02, 2017 08:49
--- NOTE | 2017-01-02 08:50 | HHI.PR ---
Subjective History of Present Illness Patient feel better. getting CT Scan of Chest. Review of Systems Constitutional Constitutional: Fatigue, Weakness Pulmonary Pulmonary Remarks right side chest tube in place. Vitals/Results Vital Signs Vital Signs Date Time Temp Pulse Resp B/P (MAP) Pulse Ox O2 Delivery O2 Flow Rate FiO2 01/02/17 08:00 97.5 86 17 157/84 (108) 96 01/02/17 03:52 97.9 76 18 148/73 (98) 96 01/01/17 23:45 97.3 79 18 130/79 (96) 95 01/01/17 20:29 96.8 78 17 148/79 (102) 95 01/01/17 20:00 Room Air 01/01/17 20:00 84 01/01/17 16:00 97.1 87 18 142/75 (97) 95 01/01/17 12:00 96.0 80 18 124/70 (88) 95 CBC/BMP: 01/01/17 0258 01/01/17 0258 Physical Exam General General Appearance: No Acute Distress, Comfortable Eyes Eye Exam: Sclera White, Extraocular Movement Intact Throat Throat Exam: Oral Mucosa [place] & Moist, Oral Pharynx Normal Neck Neck Exam: Neck Supple, Trachea Midline Pulmonary Resp Exam: Clear Bilaterally, Breath Sounds Equal, No Distress, Decreased Bases Resp Remarks Right side chest tube in. Cardiology CV Exam: Regular, Normal Sinus Rhythm Chest/Breast Chest/Breast Remarks right side chest tube in place. Gastrointestinal/Abdomen GI Exam: Soft, Non-Tender, Bowel Sounds Present Musculoskeletal MS Exam: Joints Intact Integumentary Skin Exam: Warm, Dry Extremeties Extremities Exam: Trace Edema Neurologic Neuro Exam: Alert, Awake, Oriented, No Focal Deficits Psychiatric Psych Exam: Appropriate Responses PUD Prophylasis PUD Prophylaxis: Protonix Assessment/Plan Assessment/Plan Assessment and Plan Assessment and Plan Large right sided pleural effusion s/p right side chest tube placement s/p ct scan of chest S/P Right lung collapse End-stage renal disease on peritoneal dialysis nephrology following Anemia of chronic disease Resting dyspnea secondary to the pleural effusion...better after chest tube placement. Hypertension on home medicine will monitor blood pressure. on Norvasc to 5 mg PO BID. Management Oncologist and Maintenance Mechanic Supervisor and pulmonary input noted There is a strong suspicion that the pleural effusion likely is malignant Discussed with patient Check CBC with diff CMP in AM. Discussed Condition with: Patient Felipe Alvarado MD Jan 02, 2017 08:50
--- NOTE | 2017-01-02 17:55 | HHI.NPPN ---
Subjective History of Present Illness 56-year-old female with past medical history of hypertension, chronic anemia, history of breast cancer, end-stage renal disease on peritoneal dialysis, history of gastroesophageal reflux disease, history of GI bleeding came to the hospital referred by Dr. Maher her oncologist. The patient has this cough going on for the last five or six months and she had a chest CT done as an outpatient which showed that she has some pleural effusion and she was referred by her oncologist, Dr. Maher, to go to the hospital for possible thoracentesis. Additional Remarks Patient is alert, no SOB, no abd. pain, no nausea. Review of Systems General Constitutional: Fatigue Respiratory Lungs: Cough Cardiovascular Cardiac: BACON Objective Data Data 01/02/17 01/03/17 18:59 06:59 Output Total 922 ml Balance -922 ml Chest Tube Drainage Total 260 ml Hemodialysis 662 ml Vital Signs Date Time Temp Pulse Resp B/P (MAP) Pulse Ox O2 Delivery O2 Flow Rate FiO2 01/02/17 12:00 96.1 66 18 135/74 (94) 99 01/02/17 08:00 97.5 86 17 157/84 (108) 96 01/02/17 03:52 97.9 76 18 148/73 (98) 96 01/01/17 23:45 97.3 79 18 130/79 (96) 95 01/01/17 20:29 96.8 78 17 148/79 (102) 95 01/01/17 20:00 Room Air 01/01/17 20:00 84 -: 01/01/17 0258 01/01/17 0258 Physical Exam General Appearance: No Acute Distress, Comfortable Eyes Eye Exam: Sclera White, Extraocular Movement Intact Throat Throat Exam: Oral Mucosa [place] & Moist, Oral Pharynx Normal Neck Neck Exam: Neck Supple, Trachea Midline Pulmonary Resp Exam: Clear Bilaterally, Breath Sounds Equal, No Distress, Decreased Bases Cardiology CV Exam: Regular, Normal Sinus Rhythm Gastrointestinal/Abdomen GI Exam: Soft, Non-Tender, Bowel Sounds Present Musculoskeletal MS Exam: Joints Intact Integumentary Skin Exam: Warm, Dry Extremeties Extremities Exam: Trace Edema Neurologic Neuro Exam: Alert, Awake, Oriented, No Focal Deficits Psychiatric Psych Exam: Appropriate Responses PUD Prophylasis PUD Prophylaxis: Protonix Assessment/Plan Assessment Summary: Anemia of CKD, Hypertension, End Stage Renal Disease Problem List: (1) Pleural effusion, right ICD Codes: J90 - Pleural effusion, not elsewhere classified Status: Acute (2) Sinus tachycardia ICD Codes: R00.0 - Tachycardia, unspecified Status: Acute (3) Hypertension ICD Codes: I10 - Essential (primary) hypertension Status: Acute (4) Anemia of chronic kidney failure ICD Codes: N18.9 - Chronic kidney disease, unspecified; D63.1 - Anemia in chronic kidney disease Status: Acute (5) ESRD on peritoneal dialysis ICD Codes: N18.6 - End stage renal disease; Z99.2 - Dependence on renal dialysis Status: Acute Plan Continues on PD, ongoing high creatinine. PD prescription adjusted , increase volume and time. Right-sided chest tube Pulmonary following. BP better On Percocet Hgb. is stable. Creatinine is improving. Still has drainage from CT. Will need Pleurodesis. Problem Qualifiers (1) Anemia of chronic kidney failure: Brina Ernst MD Jan 02, 2017 17:55
--- NOTE | 2017-01-02 18:07 | HHI.PR ---
Subjective Remarks 56 YOAA female with ESRD on PD, pl eff, ca breast Had right chest tube placed Breathing better No CP no Fever Chest tube drained 250 cc No new complaint Objective Vital Signs Vital Signs Date Time Temp Pulse Resp B/P (MAP) Pulse Ox O2 Delivery O2 Flow Rate FiO2 01/02/17 18:05 78 01/02/17 12:00 96.1 66 18 135/74 (94) 99 01/02/17 08:00 97.5 86 17 157/84 (108) 96 01/02/17 03:52 97.9 76 18 148/73 (98) 96 01/01/17 23:45 97.3 79 18 130/79 (96) 95 01/01/17 20:29 96.8 78 17 148/79 (102) 95 01/01/17 20:00 Room Air 01/01/17 20:00 84 I/O 01/01/17 01/01/17 01/01/17 01/02/17 01/02/17 01/02/17 07:00 15:00 23:00 07:00 15:00 23:00 Intake Total 96 ml 480 ml 480 ml Output Total 48 ml 663 ml 40 ml 150 ml 922 ml Balance -48 ml -567 ml 440 ml 330 ml -922 ml Intake Oral 96 ml 480 ml 480 ml Chest Tube Drainage Total 48 ml 40 ml 150 ml 260 ml Peritoneal Fluid 663 ml Hemodialysis 662 ml # Voids 0 0 1 1 # Bowel Movements 0 0 0 0 Result Diagram: 01/01/178 01/01/17 0258 Objective Remarks GENERAL: MBMN AA female,NAD SKIN: Warm and dry. HEAD: Normocephalic. EYES: No scleral icterus. No injection or drainage. NECK: Supple, trachea midline. No JVD or lymphadenopathy. CARDIOVASCULAR: Regular rate and rhythm without murmurs, gallops, or rubs. RESPIRATORY: Breath sounds equal bilaterally. No accessory muscle use. Right chest tube draining GASTROINTESTINAL: Abdomen soft, non-tender, nondistended. PD Cathetor MUSCULOSKELETAL: No cyanosis, or edema. BACK: Nontender without obvious deformity. No CVA tenderness. A/P Assessment and Plan Right pleural effusion S/P Chest tube placement ESRD on PD Atelactesis HTN GERD H/O Ca breast PLAN: Chest tube to suction Once pl fluid drianage decreased, will need pleurodesis On PD Stable on RA Pleural fluid for cytology CXR in AM Roel Calle MD Jan 02, 2017 18:07
[2017-01-02] MEDS: CALCITRIOL 0.25 MCG CAP PO SCH (18:09)
[2017-01-03] VITALS (8 sets, daily range): BP systolic 123–154; BP diastolic 66–89; PULSE 79–89; RESP 16–18; TEMP 97.1–98.7; O2SAT 93–98
--- NOTE | 2017-01-03 07:11 | RADRPT ---
EXAM DATE/TIME: 01/03/2017 06:01 [facility] COMPARISON: CHEST EXPIRATION ONLY, December 29, 2016, 6:14. INDICATIONS : Short of breath, cough, evaluate chest tube on right side MEDICAL HISTORY : pneumothorax SURGICAL HISTORY : chest tube ENCOUNTER: Subsequent ACUITY: 1 week PAIN SCORE: 2/10 LOCATION: Bilateral chest FINDINGS: Small bore right thoracostomy tube is in place in the base. Volume loss in the right lung consolidati on as well as pleural changes are stable. Left lung is clear no evidence of acute process or infiltra te or pneumothorax in the left lung CONCLUSION: Stable chest Vargas Bolton MD on January 03, 2017 at 7:06 Board Certified Radiologist. This report was verified electronically.
[2017-01-03 08:05] LABS: AUTOMATED NEUTROPHIL # 6.1 TH/MM3 (1.8-7.7); BASOPHIL # 0.1 TH/MM3 (0-0.2); BASOPHIL % 1.1 % (0.0-2.0); EOSINOPHIL # 0.5 TH/MM3 (0-0.4); EOSINOPHIL % 5.7 % (0.0-4.0); HEMATOCRIT 28.2 % (35.0-46.0); LYMPH % 11.5 % (9.0-44.0); MEAN CORPUSCULAR HGB CONC 31.5 % (32.0-36.0); MONO % 7.8 % (0.0-8.0); NEUT % 73.9 % (16.0-70.0); PLATELET COUNT 241 TH/MM3 (150-450); RED BLOOD COUNT 3.87 MIL/MM3 (4.00-5.30); RED CELL DISTRIBUTION WIDTH 28.7 % (11.6-17.2); WHITE BLOOD COUNT 8.3 TH/MM3 (4.0-11.0)
[2017-01-03 08:07] LABS: HEMO FLAGS AUTO DIFF
[2017-01-03] MEDS: SEVELAMER CARBONATE 800 MG TAB PO SCH ×3 (08:15→18:47)
[2017-01-03] MEDS: VITAMIN B CMPLX/VITC/FOLIC AC CAP PO SCH (08:15)
[2017-01-03 08:16] LABS: ALT (GPT) 11 U/L (10-53); ANION GAP 14 MEQ/L (5-15); AST (GOT) 7 U/L (15-37); BICARBONATE 25.6 MEQ/L (21.0-32.0); BLOOD UREA NITROGEN 49 MG/DL (7-18); CHLORIDE 91 MEQ/L (98-107); GLOMERULAR FILTRATION RATE 3 ML/MIN (>89); POTASSIUM 4.3 MEQ/L (3.5-5.1); SODIUM (NA) 131 MEQ/L (136-145)
[2017-01-03] MEDS: LISINOPRIL 5 MG TAB PO SCH ×2 (08:16→22:48)
[2017-01-03] MEDS: DOCUSATE SODIUM 50 MG/SENNA 8.6 MG TAB PO SCH ×2 (08:16→22:48)
[2017-01-03] MEDS: amLODIPine BESYLATE 5 MG TAB PO SCH ×2 (08:16→22:47)
[2017-01-03 08:18] LABS: ALKALINE PHOSPHATASE 71 U/L (45-117); TOTAL BILIRUBIN ADULT 0.3 MG/DL (0.2-1.0)
[2017-01-03] MEDS: SODIUM CHLORIDE 0.9% FLUSH 10 ML FLUSH IV FLUSH SCH ×2 (08:18→22:48)
[2017-01-03 09:27] LABS: ACANTHOCYTES 1+ (NORMAL); KERATOCYTES 1+ (NORMAL); OVALOCYTES 1+ (NORMAL); PLATELET ESTIMATE SMEAR NORMAL (NORMAL); PLATELET MORPHOLOGY NORMAL (NORMAL); SCAN/DIFF AUTO DIFF CONFIRMED; TEARDROP RBCS 1+ (NORMAL)
--- NOTE | 2017-01-03 13:42 | RADRPT ---
EXAM DATE/TIME: 01/02/2017 09:26 [facility] COMPARISON: No previous studies available for comparison. INDICATIONS : Evaluate right pleural effusion. RADIATION DOSE: 4.56 CTDIvol (mGy) MEDICAL HISTORY : Carcinoma, breast. Renal disease, end stage. Hypertension. SURGICAL HISTORY : Right chest tube ENCOUNTER: Initial ACUITY: 1 day PAIN SCALE: 2/10 LOCATION: Right chest TECHNIQUE: Volumetric scanning of the chest was performed. Using automated exposure control and adjustment of t he mA and/or kV according to patient size, radiation dose was kept as low as reasonably achievable to obtain optimal diagnostic quality images. DICOM format image data is available electronically for r eview and comparison. Follow-up recommendations for detected pulmonary nodules are based at a minimum on nodule size and pa tient risk factors according to Fleischner Society Guidelines. FINDINGS: There is a moderate left-sided pleural effusion, but left lung is otherwise clear. On the right there is volume loss noted and a hydropneumothorax is present with a pigtail catheter in the right posteri or costophrenic region. There is moderate pleural thickening, and areas of mixed attenuation fluid se en in the right hemithorax as well as a large amount of extra pulmonary air. There is focal rounded c onsolidative opacity with air bronchogram formation in the right upper and lower lobes possibly relat ed to rounded atelectasis or consolidation from pneumonia. Right lung mass difficult to exclude. The left kidney is atrophic. Osseous structures demonstrate no worrisome osseous lesions. Impression: 1. Moderate left pleural effusion. 2. Large hydropneumothorax on the right with complex loculated com ponents as well as pulmonary consolidation and possible rounded atelectasis versus mass. Best Williamson MD on January 03, 2017 at 13:33 Board Certified Radiologist. This report was verified electronically.
--- NOTE | 2017-01-03 14:52 | HHI.PR ---
Subjective History of Present Illness Patient feel better. s/p CT Scan of Chest and Chest x- ray.. Review of Systems Constitutional Constitutional: Fatigue, Weakness Pulmonary Pulmonary Remarks right side chest tube in place. Vitals/Results Intake & Output 01/03/17 01/03/17 01/04/17 14:59 22:59 06:59 Output Total 979 ml Balance -979 ml Peritoneal Fluid 979 ml Vital Signs Vital Signs Date Time Temp Pulse Resp B/P (MAP) Pulse Ox O2 Delivery O2 Flow Rate FiO2 01/03/17 11:58 97.4 82 18 123/75 (91) 93 01/03/17 10:06 81 01/03/17 07:47 98.7 84 18 142/74 (96) 97 01/03/17 04:30 98.2 86 16 154/89 (110) 98 01/03/17 04:00 Room Air 01/03/17 00:45 97.1 85 16 149/80 (103) 97 01/03/17 00:00 Room Air 01/02/17 20:40 97.5 85 18 148/75 (99) 98 01/02/17 20:05 81 01/02/17 20:00 Room Air 01/02/17 18:05 78 01/02/17 16:00 95.7 83 17 141/73 (95) 99 CBC/BMP: 01/03/17 0705 01/03/17 0705 Lab Results Laboratory Tests Test 01/03/17 07:05 White Blood Count 8.3 TH/MM3 Red Blood Count 3.87 MIL/MM3 Hemoglobin 8.9 GM/DL Hematocrit 28.2 % Mean Corpuscular Volume 73.0 FL Mean Corpuscular Hemoglobin 23.0 PG Mean Corpuscular Hemoglobin Concent 31.5 % Red Cell Distribution Width 28.7 % Platelet Count 241 TH/MM3 Mean Platelet Volume 9.4 FL Neutrophils (%) (Auto) 73.9 % Lymphocytes (%) (Auto) 11.5 % Monocytes (%) (Auto) 7.8 % Eosinophils (%) (Auto) 5.7 % Basophils (%) (Auto) 1.1 % Neutrophils # (Auto) 6.1 TH/MM3 Lymphocytes # (Auto) 1.0 TH/MM3 Monocytes # (Auto) 0.6 TH/MM3 Eosinophils # (Auto) 0.5 TH/MM3 Basophils # (Auto) 0.1 TH/MM3 CBC Comment AUTO DIFF Differential Comment AUTO DIFF CONFIRMED Platelet Estimate NORMAL Platelet Morphology Comment NORMAL Tear Drop Cells 1+ Ovalocytes 1+ Acanthocytes 1+ Keratocytes 1+ Blood Urea Nitrogen 49 MG/DL Creatinine 14.79 MG/DL Random Glucose 81 MG/DL Total Protein 6.5 GM/DL Albumin 2.2 GM/DL Calcium Level 9.2 MG/DL Alkaline Phosphatase 71 U/L Aspartate Amino Transf (AST/SGOT) 7 U/L Alanine Aminotransferase (ALT/SGPT) 11 U/L Total Bilirubin 0.3 MG/DL Sodium Level 131 MEQ/L Potassium Level 4.3 MEQ/L Chloride Level 91 MEQ/L Carbon Dioxide Level 25.6 MEQ/L Anion Gap 14 MEQ/L Estimat Glomerular Filtration Rate 3 ML/MIN Physical Exam General General Appearance: No Acute Distress, Comfortable Eyes Eye Exam: Sclera White, Extraocular Movement Intact Throat Throat Exam: Oral Mucosa [place] & Moist, Oral Pharynx Normal Neck Neck Exam: Neck Supple, Trachea Midline Pulmonary Resp Exam: Clear Bilaterally, Breath Sounds Equal, No Distress, Decreased Bases Resp Remarks Right side chest tube in. Cardiology CV Exam: Regular, Normal Sinus Rhythm Chest/Breast Chest/Breast Remarks right side chest tube in place. Gastrointestinal/Abdomen GI Exam: Soft, Non-Tender, Bowel Sounds Present Musculoskeletal MS Exam: Joints Intact Integumentary Skin Exam: Warm, Dry Extremeties Extremities Exam: Trace Edema Neurologic Neuro Exam: Alert, Awake, Oriented, No Focal Deficits Psychiatric Psych Exam: Appropriate Responses PUD Prophylasis PUD Prophylaxis: Protonix Assessment/Plan Assessment/Plan Assessment and Plan Assessment and Plan Large right sided pleural effusion s/p right side chest tube placement s/p ct scan of chest and chest x- ray. S/P Right lung collapse End-stage renal disease on peritoneal dialysis nephrology following Anemia of chronic disease Resting dyspnea secondary to the pleural effusion...better after chest tube placement. Hypertension on home medicine will monitor blood pressure. on Norvasc to 5 mg PO BID. 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 Discussed Condition with: Patient Felipe Alvarado MD Jan 03, 2017 14:52
--- NOTE | 2017-01-03 17:34 | HHI.NPPN ---
Subjective History of Present Illness 56-year-old female with past medical history of hypertension, chronic anemia, history of breast cancer, end-stage renal disease on peritoneal dialysis, history of gastroesophageal reflux disease, history of GI bleeding came to the hospital referred by Dr. Maher her oncologist. The patient has this cough going on for the last five or six months and she had a chest CT done as an outpatient which showed that she has some pleural effusion and she was referred by her oncologist, Dr. Maher, to go to the hospital for possible thoracentesis. Additional Remarks Patient is alert, no SOB, eating well. Review of Systems General Constitutional: Fatigue Respiratory Lungs: Cough Cardiovascular Cardiac: BACON Objective Data Data 01/03/17 01/04/17 18:59 06:59 Intake Total 600 ml Output Total 1209 ml Balance -609 ml Intake Oral 600 ml Chest Tube Drainage Total 230 ml Peritoneal Fluid 979 ml # Voids 1 # Bowel Movements 1 Vital Signs Date Time Temp Pulse Resp B/P (MAP) Pulse Ox O2 Delivery O2 Flow Rate FiO2 01/03/17 16:00 97.9 89 18 139/73 (95) 97 01/03/17 11:58 97.4 82 18 123/75 (91) 93 01/03/17 10:06 81 01/03/17 07:47 98.7 84 18 142/74 (96) 97 01/03/17 04:30 98.2 86 16 154/89 (110) 98 01/03/17 04:00 Room Air 01/03/17 00:45 97.1 85 16 149/80 (103) 97 01/03/17 00:00 Room Air 01/02/17 20:40 97.5 85 18 148/75 (99) 98 01/02/17 20:05 81 01/02/17 20:00 Room Air 01/02/17 18:05 78 -: 01/03/17 0705 01/03/17 0705 Physical Exam General Appearance: No Acute Distress, Comfortable Eyes Eye Exam: Sclera White, Extraocular Movement Intact Throat Throat Exam: Oral Mucosa [place] & Moist, Oral Pharynx Normal Neck Neck Exam: Neck Supple, Trachea Midline Pulmonary Resp Exam: Clear Bilaterally, Breath Sounds Equal, No Distress, Decreased Bases Cardiology CV Exam: Regular, Normal Sinus Rhythm Gastrointestinal/Abdomen GI Exam: Soft, Non-Tender, Bowel Sounds Present Musculoskeletal MS Exam: Joints Intact Integumentary Skin Exam: Warm, Dry Extremeties Extremities Exam: Trace Edema Neurologic Neuro Exam: Alert, Awake, Oriented, No Focal Deficits Psychiatric Psych Exam: Appropriate Responses PUD Prophylasis PUD Prophylaxis: Protonix Assessment/Plan Assessment Summary: Anemia of CKD, Hypertension, End Stage Renal Disease Problem List: (1) Pleural effusion, right ICD Codes: J90 - Pleural effusion, not elsewhere classified Status: Acute (2) Sinus tachycardia ICD Codes: R00.0 - Tachycardia, unspecified Status: Acute (3) Hypertension ICD Codes: I10 - Essential (primary) hypertension Status: Acute (4) Anemia of chronic kidney failure ICD Codes: N18.9 - Chronic kidney disease, unspecified; D63.1 - Anemia in chronic kidney disease Status: Acute (5) ESRD on peritoneal dialysis ICD Codes: N18.6 - End stage renal disease; Z99.2 - Dependence on renal dialysis Status: Acute Plan Continues on PD, ongoing high creatinine. PD prescription adjusted , increase volume and time. Right-sided chest tube Pulmonary following. BP better On Percocet Hgb. is stable. Creatinine is improving. Still has drainage from CT. Will need Pleurodesis. Pulmonary is following. Continue same PD. Problem Qualifiers (1) Anemia of chronic kidney failure: Brina Ernst MD Jan 03, 2017 17:34
--- NOTE | 2017-01-03 19:27 | HHI.PR ---
Subjective Remarks 56 YOAA female with ESRD on PD, pl eff, ca breast Had right chest tube placed Breathing better No CP no Fever Chest tube draining 250-300cc Objective Vital Signs Vital Signs Date Time Temp Pulse Resp B/P (MAP) Pulse Ox O2 Delivery O2 Flow Rate FiO2 01/03/17 19:15 Room Air 01/03/17 16:00 97.9 89 18 139/73 (95) 97 01/03/17 11:58 97.4 82 18 123/75 (91) 93 01/03/17 10:06 81 01/03/17 07:47 98.7 84 18 142/74 (96) 97 01/03/17 04:30 98.2 86 16 154/89 (110) 98 01/03/17 04:00 Room Air 01/03/17 00:45 97.1 85 16 149/80 (103) 97 01/03/17 00:00 Room Air 01/02/17 20:40 97.5 85 18 148/75 (99) 98 01/02/17 20:05 81 01/02/17 20:00 Room Air I/O 01/02/17 01/02/17 01/02/17 01/03/17 01/03/17 01/03/17 07:00 15:00 23:00 07:00 15:00 23:00 Intake Total 480 ml 480 ml 240 ml 240 ml 600 ml Output Total 150 ml 922 ml 150 ml 1209 ml Balance 330 ml -442 ml 240 ml 90 ml -609 ml Intake Oral 480 ml 480 ml 240 ml 240 ml 600 ml Chest Tube Drainage Total 150 ml 260 ml 150 ml 230 ml Peritoneal Fluid 979 ml Hemodialysis 662 ml # Voids 1 0 1 1 1 # Bowel Movements 0 1 0 1 Result Diagram: 01/03/1770401/03/17704 Objective Remarks GENERAL: MBMN AA female,NAD SKIN: Warm and dry. HEAD: Normocephalic. EYES: No scleral icterus. No injection or drainage. NECK: Supple, trachea midline. No JVD or lymphadenopathy. CARDIOVASCULAR: Regular rate and rhythm without murmurs, gallops, or rubs. RESPIRATORY: Breath sounds equal bilaterally. No accessory muscle use. Right chest tube draining GASTROINTESTINAL: Abdomen soft, non-tender, nondistended. PD Cathetor MUSCULOSKELETAL: No cyanosis, or edema. BACK: Nontender without obvious deformity. No CVA tenderness. A/P Assessment and Plan Right pleural effusion S/P Chest tube placement ESRD on PD Atelactesis HTN GERD H/O Ca breast PLAN: Chest tube to suction Once pl fluid drianage decreased, will need pleurodesis On PD Stable on RA Pleural fluid for cytology Roel Calle MD Jan 03, 2017 19:27
[2017-01-04] VITALS (8 sets, daily range): BP systolic 130–147; BP diastolic 69–88; PULSE 81–98; RESP 16–18; TEMP 97–98.7; O2SAT 97–100
--- NOTE | 2017-01-04 08:33 | HHI.PR ---
Subjective History of Present Illness Patient feel better. s/p CT Scan of Chest and Chest x- ray.. d/w RN No acute issue. Review of Systems Constitutional Constitutional: Fatigue, Weakness Pulmonary Pulmonary Remarks right side chest tube in place. Vitals/Results Vital Signs Vital Signs Date Time Temp Pulse Resp B/P (MAP) Pulse Ox O2 Delivery O2 Flow Rate FiO2 01/04/17 08:00 98.7 95 18 147/75 (99) 98 01/04/17 04:25 97.4 94 16 138/79 (98) 98 01/04/17 00:30 98.1 98 16 143/88 (106) 97 01/03/17 21:15 98.0 80 16 126/66 (86) 98 01/03/17 20:05 79 01/03/17 19:15 Room Air 01/03/17 16:00 97.9 89 18 139/73 (95) 97 01/03/17 11:58 97.4 82 18 123/75 (91) 93 01/03/17 10:06 81 CBC/BMP: 01/03/17 0705 01/03/17 0705 Physical Exam General General Appearance: No Acute Distress, Comfortable Eyes Eye Exam: Sclera White, Extraocular Movement Intact Throat Throat Exam: Oral Mucosa [place] & Moist, Oral Pharynx Normal Neck Neck Exam: Neck Supple, Trachea Midline Pulmonary Resp Exam: Clear Bilaterally, Breath Sounds Equal, No Distress, Decreased Bases Resp Remarks Right side chest tube in. Cardiology CV Exam: Regular, Normal Sinus Rhythm Chest/Breast Chest/Breast Remarks right side chest tube in place. Gastrointestinal/Abdomen GI Exam: Soft, Non-Tender, Bowel Sounds Present Musculoskeletal MS Exam: Joints Intact Integumentary Skin Exam: Warm, Dry Extremeties Extremities Exam: Trace Edema Neurologic Neuro Exam: Alert, Awake, Oriented, No Focal Deficits Psychiatric Psych Exam: Appropriate Responses PUD Prophylasis PUD Prophylaxis: Protonix Assessment/Plan Assessment/Plan Assessment and Plan Assessment and Plan Large right sided pleural effusion s/p right side chest tube placement s/p ct scan of chest and chest x- ray. shows moderate left pleural effusion and Large right Hydropneumothorax with complex loculated component as well as pulmonary consolidation and possible rounded Atelectasis / mass pulmonary managing the patient. S/P Right lung collapse s/p chest tube in place End-stage renal disease on peritoneal dialysis nephrology following Anemia of chronic disease Resting dyspnea secondary to the pleural effusion..better after chest tube placement. Hypertension on home medicine will monitor blood pressure.+ Norvasc to 5 mg PO BID. Management Oncologist and [employer] Man and pulmonary input noted There is a strong suspicion that the pleural effusion likely is malignant Discussed with patient Check CBC with diff CMP in AM. Discussed Condition with: Patient Felipe Alvarado MD Jan 04, 2017 08:33
[2017-01-04] MEDS: SEVELAMER CARBONATE 800 MG TAB PO SCH ×3 (09:17→19:15)
[2017-01-04] MEDS: VITAMIN B CMPLX/VITC/FOLIC AC CAP PO SCH (09:17)
[2017-01-04] MEDS: amLODIPine BESYLATE 5 MG TAB PO SCH ×2 (09:17→21:34)
[2017-01-04] MEDS: DOCUSATE SODIUM 50 MG/SENNA 8.6 MG TAB PO SCH ×2 (09:17→21:34)
[2017-01-04] MEDS: LISINOPRIL 5 MG TAB PO SCH ×2 (09:17→21:34)
[2017-01-04] MEDS: SODIUM CHLORIDE 0.9% FLUSH 10 ML FLUSH IV FLUSH SCH ×2 (09:21→21:33)
--- NOTE | 2017-01-04 17:01 | HHI.NPPN ---
Subjective History of Present Illness 56-year-old female with past medical history of hypertension, chronic anemia, history of breast cancer, end-stage renal disease on peritoneal dialysis, history of gastroesophageal reflux disease, history of GI bleeding came to the hospital referred by Dr. Maher her oncologist. The patient has this cough going on for the last five or six months and she had a chest CT done as an outpatient which showed that she has some pleural effusion and she was referred by her oncologist, Dr. Maher, to go to the hospital for possible thoracentesis. Additional Remarks Patient is alert, sitting on chair, no SOB, eating well. Review of Systems General Constitutional: Fatigue Respiratory Lungs: Cough Cardiovascular Cardiac: BACON Objective Data Data 01/04/17 01/05/17 18:59 06:59 Intake Total 740 ml Output Total 908 ml Balance -168 ml Intake Oral 740 ml Peritoneal Fluid 908 ml Vital Signs Date Time Temp Pulse Resp B/P (MAP) Pulse Ox O2 Delivery O2 Flow Rate FiO2 01/04/17 16:00 97.3 81 18 135/69 (91) 100 01/04/17 12:00 97.0 82 18 138/69 (92) 98 01/04/17 10:06 89 01/04/17 08:00 98.7 95 18 147/75 (99) 98 01/04/17 04:25 97.4 94 16 138/79 (98) 98 01/04/17 00:30 98.1 98 16 143/88 (106) 97 01/03/17 21:15 98.0 80 16 126/66 (86) 98 01/03/17 20:05 79 01/03/17 19:15 Room Air -: 01/03/17 0705 01/03/17 0705 Physical Exam General Appearance: No Acute Distress, Comfortable Eyes Eye Exam: Sclera White, Extraocular Movement Intact Throat Throat Exam: Oral Mucosa [place] & Moist, Oral Pharynx Normal Neck Neck Exam: Neck Supple, Trachea Midline Pulmonary Resp Exam: Clear Bilaterally, Breath Sounds Equal, No Distress, Decreased Bases Cardiology CV Exam: Regular, Normal Sinus Rhythm Gastrointestinal/Abdomen GI Exam: Soft, Non-Tender, Bowel Sounds Present Musculoskeletal MS Exam: Joints Intact Integumentary Skin Exam: Warm, Dry Extremeties Extremities Exam: Trace Edema Neurologic Neuro Exam: Alert, Awake, Oriented, No Focal Deficits Psychiatric Psych Exam: Appropriate Responses PUD Prophylasis PUD Prophylaxis: Protonix Assessment/Plan Assessment Summary: Anemia of CKD, Hypertension, End Stage Renal Disease Problem List: (1) Pleural effusion, right ICD Codes: J90 - Pleural effusion, not elsewhere classified Status: Acute (2) Sinus tachycardia ICD Codes: R00.0 - Tachycardia, unspecified Status: Acute (3) Hypertension ICD Codes: I10 - Essential (primary) hypertension Status: Acute (4) Anemia of chronic kidney failure ICD Codes: N18.9 - Chronic kidney disease, unspecified; D63.1 - Anemia in chronic kidney disease Status: Acute (5) ESRD on peritoneal dialysis ICD Codes: N18.6 - End stage renal disease; Z99.2 - Dependence on renal dialysis Status: Acute Plan Continues on PD, ongoing high creatinine. PD prescription adjusted , increase volume and time. Right-sided chest tube Pulmonary following. BP better On Percocet Hgb. is stable. Creatinine is improving. Still has drainage from CT. Will need Pleurodesis. Pulmonary is following. I discussed with Dr. Calle, for possible PD fluid leak. He will send Creatinine and Glucose. If there is leak, then will need HD. Problem Qualifiers (1) Anemia of chronic kidney failure: Brina Enrst MD Jan 04, 2017 17:01
[2017-01-04] MEDS: CALCITRIOL 0.25 MCG CAP PO SCH (19:15)
--- NOTE | 2017-01-04 19:24 | HHI.PR ---
Subjective Remarks 56 YOAA female with ESRD on PD, pl eff, ca breast Had right chest tube placed No CP no Fever Chest tube draining 250-300cc No SOB Objective Vital Signs Vital Signs Date Time Temp Pulse Resp B/P (MAP) Pulse Ox O2 Delivery O2 Flow Rate FiO2 01/04/17 16:00 97.3 81 18 135/69 (91) 100 01/04/17 12:00 97.0 82 18 138/69 (92) 98 01/04/17 10:06 89 01/04/17 08:00 98.7 95 18 147/75 (99) 98 01/04/17 04:25 97.4 94 16 138/79 (98) 98 01/04/17 00:30 98.1 98 16 143/88 (106) 97 01/03/17 21:15 98.0 80 16 126/66 (86) 98 01/03/17 20:05 79 I/O 01/03/17 01/03/17 01/03/17 01/04/17 01/04/17 01/04/17 06:59 14:59 22:59 06:59 14:59 22:59 Intake Total 240 ml 600 ml 480 ml 480 ml 740 ml Output Total 150 ml 1209 ml 100 ml 110 ml 908 ml 150 ml Balance 90 ml -609 ml 380 ml 370 ml -168 ml -150 ml Intake Oral 240 ml 600 ml 480 ml 480 ml 740 ml Chest Tube Drainage Total 150 ml 230 ml 100 ml 110 ml 150 ml Peritoneal Fluid 979 ml 908 ml # Voids 1 1 2 2 # Bowel Movements 0 1 0 0 Result Diagram: 01/03/1770401/03/17704 Objective Remarks GENERAL: MBMN AA female,NAD SKIN: Warm and dry. HEAD: Normocephalic. EYES: No scleral icterus. No injection or drainage. NECK: Supple, trachea midline. No JVD or lymphadenopathy. CARDIOVASCULAR: Regular rate and rhythm without murmurs, gallops, or rubs. RESPIRATORY: Breath sounds equal bilaterally. No accessory muscle use. Right chest tube draining GASTROINTESTINAL: Abdomen soft, non-tender, nondistended. PD Cathetor MUSCULOSKELETAL: No cyanosis, or edema. BACK: Nontender without obvious deformity. No CVA tenderness. A/P Assessment and Plan Right pleural effusion S/P Chest tube placement ESRD on PD Atelactesis HTN GERD H/O Ca breast PLAN: Chest tube to suction Once pl fluid drianage decreased, will need pleurodesis On PD Stable on RA Pleural fluid cytology Negative Will send Pl fluid for Glucose,Pr, LDH and Creatinine Roel Calle MD Jan 04, 2017 19:24
[2017-01-04 21:34] LABS: TOTAL PROTEIN,PLEURAL FLUID 2.1 GM/DL
[2017-01-04] MEDS: SENNOSIDES 8.6 MG TAB PO PRN (21:34)
[2017-01-05] VITALS (7 sets, daily range): BP systolic 124–139; BP diastolic 65–77; PULSE 80–90; RESP 16–18; TEMP 96.3–98.1; O2SAT 95–98
[2017-01-05 07:06] LABS: ANION GAP 13 MEQ/L (5-15)
[2017-01-05 07:10] LABS: AUTOMATED NEUTROPHIL # 5.6 TH/MM3 (1.8-7.7); BASOPHIL # 0.1 TH/MM3 (0-0.2); BASOPHIL % 0.9 % (0.0-2.0); EOSINOPHIL # 0.5 TH/MM3 (0-0.4); EOSINOPHIL % 6.3 % (0.0-4.0); LYMPHOCYTE # 1.1 TH/MM3 (1.0-4.8); MEAN CELL VOLUME 74.3 FL (80.0-100.0); MEAN CORPUSCULAR HEMOGLOBIN 23.2 PG (27.0-34.0); MEAN CORPUSCULAR HGB CONC 31.3 % (32.0-36.0); MONO % 8.6 % (0.0-8.0); NEUT % 70.2 % (16.0-70.0); PLATELET COUNT 257 TH/MM3 (150-450); RED BLOOD COUNT 4.04 MIL/MM3 (4.00-5.30); RED CELL DISTRIBUTION WIDTH 28.6 % (11.6-17.2); WHITE BLOOD COUNT 7.9 TH/MM3 (4.0-11.0)
[2017-01-05 07:15] LABS: ALKALINE PHOSPHATASE 73 U/L (45-117); ALT (GPT) 12 U/L (10-53); AST (GOT) 9 U/L (15-37); BICARBONATE 26.1 MEQ/L (21.0-32.0); BLOOD UREA NITROGEN 48 MG/DL (7-18); CHLORIDE 91 MEQ/L (98-107); GLOMERULAR FILTRATION RATE 3 ML/MIN (>89); POTASSIUM 4.6 MEQ/L (3.5-5.1); SODIUM (NA) 130 MEQ/L (136-145); TOTAL BILIRUBIN ADULT 0.3 MG/DL (0.2-1.0)
[2017-01-05 07:57] LABS: HEMO FLAGS AUTO DIFF
[2017-01-05] MEDS: LISINOPRIL 5 MG TAB PO SCH ×2 (09:37→21:09)
[2017-01-05] MEDS: SEVELAMER CARBONATE 800 MG TAB PO SCH ×3 (09:37→17:44)
[2017-01-05] MEDS: amLODIPine BESYLATE 5 MG TAB PO SCH ×2 (09:37→21:09)
[2017-01-05] MEDS: DOCUSATE SODIUM 50 MG/SENNA 8.6 MG TAB PO SCH ×2 (09:37→21:09)
[2017-01-05] MEDS: VITAMIN B CMPLX/VITC/FOLIC AC CAP PO SCH (09:37)
[2017-01-05] MEDS: SODIUM CHLORIDE 0.9% FLUSH 10 ML FLUSH IV FLUSH SCH ×2 (09:38→21:10)
[2017-01-05 09:56] LABS: KERATOCYTES OCC (NORMAL); OVALOCYTES 1+ (NORMAL); PLATELET ESTIMATE SMEAR NORMAL (NORMAL); PLATELET MORPHOLOGY NORMAL (NORMAL); SCAN/DIFF AUTO DIFF CONFIRMED; TEARDROP RBCS 1+ (NORMAL)
--- NOTE | 2017-01-05 19:20 | HHI.PR ---
Subjective Remarks 56 YOAA female with ESRD on PD, pl eff, ca breast Had right chest tube placed No CP no Fever Chest tube draining 250-300cc No SOB Pl fluid transudate Objective Vital Signs Vital Signs Date Time Temp Pulse Resp B/P (MAP) Pulse Ox O2 Delivery O2 Flow Rate FiO2 01/05/17 16:00 98.1 85 18 136/75 (95) 95 01/05/17 12:00 96.3 86 18 125/65 (85) 98 01/05/17 08:00 97.0 90 17 139/77 (97) 97 01/05/17 04:25 96.9 86 16 138/75 (96) 95 01/05/17 00:35 97.0 80 16 137/69 (91) 98 01/04/17 20:30 97.8 84 16 130/69 (89) 98 01/04/17 20:00 91 I/O 01/04/17 01/04/17 01/04/17 01/05/17 01/05/17 01/05/17 07:00 15:00 23:00 07:00 15:00 23:00 Intake Total 480 ml 740 ml 480 ml 480 ml Output Total 110 ml 1058 ml 70 ml 120 ml 933 ml 110 ml Balance 370 ml -318 ml 410 ml 360 ml -933 ml -110 ml Intake Oral 480 ml 740 ml 480 ml 480 ml Chest Tube Drainage Total 110 ml 150 ml 70 ml 120 ml 110 ml Peritoneal Fluid 908 ml 933 ml # Voids 2 1 2 # Bowel Movements 0 0 0 Result Diagram: 01/05/17 0507 01/05/17 0507 Objective Remarks GENERAL: MBMN AA female,NAD SKIN: Warm and dry. HEAD: Normocephalic. EYES: No scleral icterus. No injection or drainage. NECK: Supple, trachea midline. No JVD or lymphadenopathy. CARDIOVASCULAR: Regular rate and rhythm without murmurs, gallops, or rubs. RESPIRATORY: Breath sounds equal bilaterally. No accessory muscle use. Right chest tube draining GASTROINTESTINAL: Abdomen soft, non-tender, nondistended. PD Cathetor MUSCULOSKELETAL: No cyanosis, or edema. BACK: Nontender without obvious deformity. No CVA tenderness. A/P Assessment and Plan Right pleural effusion S/P Chest tube placement ESRD on PD Atelactesis HTN GERD H/O Ca breast PLAN: Chest tube to suction Once pl fluid drianage decreased, will need pleurodesis On PD Stable on RA Pleural fluid cytology Negative Roel Calle MD Jan 05, 2017 19:20
--- NOTE | 2017-01-05 20:16 | HHI.NPPN ---
Subjective History of Present Illness 56-year-old female with past medical history of hypertension, chronic anemia, history of breast cancer, end-stage renal disease on peritoneal dialysis, history of gastroesophageal reflux disease, history of GI bleeding came to the hospital referred by Dr. Maher her oncologist. The patient has this cough going on for the last five or six months and she had a chest CT done as an outpatient which showed that she has some pleural effusion and she was referred by her oncologist, Dr. Maher, to go to the hospital for possible thoracentesis. Additional Remarks Patient is alert, sitting on chair, no complain. Review of Systems General Constitutional: Fatigue Respiratory Lungs: Cough Cardiovascular Cardiac: BACON Objective Data Data 01/05/17 01/06/17 19:00 07:00 Output Total 1043 ml Balance -1043 ml Chest Tube Drainage Total 110 ml Peritoneal Fluid 933 ml Vital Signs Date Time Temp Pulse Resp B/P (MAP) Pulse Ox O2 Delivery O2 Flow Rate FiO2 01/05/17 16:00 98.1 85 18 136/75 (95) 95 01/05/17 12:00 96.3 86 18 125/65 (85) 98 01/05/17 08:00 97.0 90 17 139/77 (97) 97 01/05/17 04:25 96.9 86 16 138/75 (96) 95 01/05/17 00:35 97.0 80 16 137/69 (91) 98 01/04/17 20:30 97.8 84 16 130/69 (89) 98 -: 01/05/17 0507 01/05/17 0507 Physical Exam General Appearance: No Acute Distress, Comfortable Eyes Eye Exam: Sclera White, Extraocular Movement Intact Throat Throat Exam: Oral Mucosa [place] & Moist, Oral Pharynx Normal Neck Neck Exam: Neck Supple, Trachea Midline Pulmonary Resp Exam: Clear Bilaterally, Breath Sounds Equal, No Distress, Decreased Bases Cardiology CV Exam: Regular, Normal Sinus Rhythm Gastrointestinal/Abdomen GI Exam: Soft, Non-Tender, Bowel Sounds Present Musculoskeletal MS Exam: Joints Intact Integumentary Skin Exam: Warm, Dry Extremeties Extremities Exam: Trace Edema Neurologic Neuro Exam: Alert, Awake, Oriented, No Focal Deficits Psychiatric Psych Exam: Appropriate Responses PUD Prophylasis PUD Prophylaxis: Protonix Assessment/Plan Assessment Summary: Anemia of CKD, Hypertension, End Stage Renal Disease Problem List: (1) Pleural effusion, right ICD Codes: J90 - Pleural effusion, not elsewhere classified Status: Acute (2) Sinus tachycardia ICD Codes: R00.0 - Tachycardia, unspecified Status: Acute (3) Hypertension ICD Codes: I10 - Essential (primary) hypertension Status: Acute (4) Anemia of chronic kidney failure ICD Codes: N18.9 - Chronic kidney disease, unspecified; D63.1 - Anemia in chronic kidney disease Status: Acute (5) ESRD on peritoneal dialysis ICD Codes: N18.6 - End stage renal disease; Z99.2 - Dependence on renal dialysis Status: Acute Plan Continues on PD, ongoing high creatinine. PD prescription adjusted , increase volume and time. Right-sided chest tube Pulmonary following. BP better On Percocet Hgb. is stable. Creatinine is improving. Still has drainage from CT. Will need Pleurodesis. Pulmonary is following. Pleural fluid glucose is normal, and has transudate. Leak of PD is not possible due to low Glucose. Continue same PD. Problem Qualifiers (1) Anemia of chronic kidney failure: Brina Ernst MD Jan 05, 2017 20:16
[2017-01-06] VITALS (7 sets, daily range): BP systolic 114–140; BP diastolic 68–74; PULSE 79–91; RESP 16–18; TEMP 97.1–97.9; O2SAT 95–99
[2017-01-06] MEDS: DOCUSATE SODIUM 50 MG/SENNA 8.6 MG TAB PO SCH ×2 (08:41→20:13)
[2017-01-06] MEDS: amLODIPine BESYLATE 5 MG TAB PO SCH ×2 (08:41→20:13)
[2017-01-06] MEDS: SEVELAMER CARBONATE 800 MG TAB PO SCH ×3 (08:41→18:05)
[2017-01-06] MEDS: VITAMIN B CMPLX/VITC/FOLIC AC CAP PO SCH (08:42)
[2017-01-06] MEDS: SODIUM CHLORIDE 0.9% FLUSH 10 ML FLUSH IV FLUSH SCH ×2 (08:42→20:14)
[2017-01-06] MEDS: LISINOPRIL 5 MG TAB PO SCH ×2 (08:42→20:13)
--- NOTE | 2017-01-06 11:58 | HHI.NPPN ---
Subjective History of Present Illness 56-year-old female with past medical history of hypertension, chronic anemia, history of breast cancer, end-stage renal disease on peritoneal dialysis, history of gastroesophageal reflux disease, history of GI bleeding came to the hospital referred by Dr. Maher her oncologist. The patient has this cough going on for the last five or six months and she had a chest CT done as an outpatient which showed that she has some pleural effusion and she was referred by her oncologist, Dr. Maher, to go to the hospital for possible thoracentesis. Additional Remarks Patient is alert, clinically same, with CT,. breathing is better. Review of Systems General Constitutional: Fatigue Respiratory Lungs: Cough Cardiovascular Cardiac: BACON Objective Data Data 01/06/17 01/07/17 19:00 07:00 Output Total 946 ml Balance -946 ml Peritoneal Fluid 946 ml Vital Signs Date Time Temp Pulse Resp B/P (MAP) Pulse Ox O2 Delivery O2 Flow Rate FiO2 01/06/17 07:55 97.7 91 18 137/71 (93) 97 01/06/17 04:35 97.8 89 16 117/71 (86) 97 01/06/17 00:40 97.6 84 16 114/68 (83) 95 01/05/17 20:51 80 01/05/17 20:40 98.1 90 16 124/68 (86) 96 01/05/17 16:00 98.1 85 18 136/75 (95) 95 01/05/17 12:00 96.3 86 18 125/65 (85) 98 -: 01/05/17 0507 01/05/17 0507 Physical Exam General Appearance: No Acute Distress, Comfortable Eyes Eye Exam: Sclera White, Extraocular Movement Intact Throat Throat Exam: Oral Mucosa [place] & Moist, Oral Pharynx Normal Neck Neck Exam: Neck Supple, Trachea Midline Pulmonary Resp Exam: Clear Bilaterally, Breath Sounds Equal, No Distress, Decreased Bases Cardiology CV Exam: Regular, Normal Sinus Rhythm Gastrointestinal/Abdomen GI Exam: Soft, Non-Tender, Bowel Sounds Present Musculoskeletal MS Exam: Joints Intact Integumentary Skin Exam: Warm, Dry Extremeties Extremities Exam: Trace Edema Neurologic Neuro Exam: Alert, Awake, Oriented, No Focal Deficits Psychiatric Psych Exam: Appropriate Responses PUD Prophylasis PUD Prophylaxis: Protonix Assessment/Plan Assessment Summary: Anemia of CKD, Hypertension, End Stage Renal Disease Problem List: (1) Pleural effusion, right ICD Codes: J90 - Pleural effusion, not elsewhere classified Status: Acute (2) Sinus tachycardia ICD Codes: R00.0 - Tachycardia, unspecified Status: Acute (3) Hypertension ICD Codes: I10 - Essential (primary) hypertension Status: Acute (4) Anemia of chronic kidney failure ICD Codes: N18.9 - Chronic kidney disease, unspecified; D63.1 - Anemia in chronic kidney disease Status: Acute (5) ESRD on peritoneal dialysis ICD Codes: N18.6 - End stage renal disease; Z99.2 - Dependence on renal dialysis Status: Acute Plan Continues on PD, ongoing high creatinine. PD prescription adjusted , increase volume and time. Right-sided chest tube Pulmonary following. BP better On Percocet Hgb. is stable. Creatinine is improving. Still has drainage from CT. Will need Pleurodesis. Pulmonary is following. Fluid from CT decreasing. Continue same PD. Problem Qualifiers (1) Anemia of chronic kidney failure: Brina Ernst MD Jan 06, 2017 11:58
--- NOTE | 2017-01-06 15:15 | HHI.PR ---
Subjective History of Present Illness Patient seen on 01/05/17 feel better. still have right side chest tube in still draining fluid.. S/P CT Scan of Chest and Chest x- ray.. d/w RN No acute issue. Pleural fluid negative for malignant cell. Review of Systems Constitutional Constitutional: Fatigue, Weakness Pulmonary Pulmonary Remarks right side chest tube in place. Vitals/Results Intake & Output 01/06/17 01/06/17 01/07/17 14:59 22:59 06:59 Output Total 946 ml Balance -946 ml Peritoneal Fluid 946 ml Vital Signs Vital Signs Date Time Temp Pulse Resp B/P (MAP) Pulse Ox O2 Delivery O2 Flow Rate FiO2 01/06/17 12:00 97.1 86 18 140/73 (95) 99 01/06/17 07:55 97.7 91 18 137/71 (93) 97 01/06/17 04:35 97.8 89 16 117/71 (86) 97 01/06/17 00:40 97.6 84 16 114/68 (83) 95 01/05/17 20:51 80 01/05/17 20:40 98.1 90 16 124/68 (86) 96 01/05/17 16:00 98.1 85 18 136/75 (95) 95 CBC/BMP: 01/05/17 0507 01/05/17 0507 Physical Exam General General Appearance: No Acute Distress, Comfortable Eyes Eye Exam: Sclera White, Extraocular Movement Intact Throat Throat Exam: Oral Mucosa [place] & Moist, Oral Pharynx Normal Neck Neck Exam: Neck Supple, Trachea Midline Pulmonary Resp Exam: Clear Bilaterally, Breath Sounds Equal, No Distress, Decreased Bases Resp Remarks Right side chest tube in. Cardiology CV Exam: Regular, Normal Sinus Rhythm Chest/Breast Chest/Breast Remarks right side chest tube in place. Gastrointestinal/Abdomen GI Exam: Soft, Non-Tender, Bowel Sounds Present Musculoskeletal MS Exam: Joints Intact Integumentary Skin Exam: Warm, Dry Extremeties Extremities Exam: Trace Edema Neurologic Neuro Exam: Alert, Awake, Oriented, No Focal Deficits Psychiatric Psych Exam: Appropriate Responses PUD Prophylasis PUD Prophylaxis: Protonix Assessment/Plan Assessment/Plan Assessment and Plan Assessment and Plan Large right sided pleural effusion s/p right side chest tube placement still draining fluid Fluid analysis negative for malignant cell. s/p ct scan of chest and chest x- ray. shows moderate left pleural effusion and Large right Hydropneumothorax with complex loculated component as well as pulmonary consolidation and possible rounded Atelectasis / mass pulmonary managing the patient. S/P Right lung collapse s/p chest tube in place End-stage renal disease on peritoneal dialysis nephrology following Anemia of chronic disease Resting dyspnea secondary to the pleural effusion..better after chest tube placement. Hypertension on home medicine will monitor blood pressure.+ Norvasc to 5 mg PO BID. Management Oncologist and Marketing Project Lead and pulmonary input noted Discussed with patient Check CBC with diff CMP in AM. Discussed Condition with: Patient Felipe Alvarado MD Jan 06, 2017 15:15
[2017-01-06] MEDS: CALCITRIOL 0.25 MCG CAP PO SCH (18:05)
--- NOTE | 2017-01-06 18:55 | HHI.PR ---
Subjective Remarks 56 YOAA female with ESRD on PD, pl eff, ca breast Had right chest tube placed No CP no Fever No SOB Pl fluid transudate Objective Vital Signs Vital Signs Date Time Temp Pulse Resp B/P (MAP) Pulse Ox O2 Delivery O2 Flow Rate FiO2 01/06/17 16:00 97.3 86 18 137/69 (91) 98 01/06/17 12:00 97.1 86 18 140/73 (95) 99 01/06/17 07:55 97.7 91 18 137/71 (93) 97 01/06/17 04:35 97.8 89 16 117/71 (86) 97 01/06/17 00:40 97.6 84 16 114/68 (83) 95 01/05/17 20:51 80 01/05/17 20:40 98.1 90 16 124/68 (86) 96 I/O 01/05/17 01/05/17 01/05/17 01/06/17 01/06/17 01/06/17 06:59 14:59 22:59 06:59 14:59 22:59 Intake Total 480 ml 480 ml 480 ml 740 ml Output Total 120 ml 933 ml 160 ml 100 ml 946 ml Balance 360 ml -933 ml 320 ml 380 ml -206 ml Intake Oral 480 ml 480 ml 480 ml 740 ml Output Urine Total 0 ml Chest Tube Drainage Total 120 ml 160 ml 100 ml Peritoneal Fluid 933 ml 946 ml # Voids 2 2 1 # Bowel Movements 0 0 1 0 Result Diagram: 01/05/17 0507 01/05/17 0507 Objective Remarks GENERAL: MBMN AA female,NAD SKIN: Warm and dry. HEAD: Normocephalic. EYES: No scleral icterus. No injection or drainage. NECK: Supple, trachea midline. No JVD or lymphadenopathy. CARDIOVASCULAR: Regular rate and rhythm without murmurs, gallops, or rubs. RESPIRATORY: Breath sounds equal bilaterally. No accessory muscle use. Right chest tube draining GASTROINTESTINAL: Abdomen soft, non-tender, nondistended. PD Cathetor MUSCULOSKELETAL: No cyanosis, or edema. BACK: Nontender without obvious deformity. No CVA tenderness. A/P Assessment and Plan Right pleural effusion S/P Chest tube placement ESRD on PD Atelactesis HTN GERD H/O Ca breast PLAN: Chest tube to suction Once pl fluid drianage decreased, will need pleurodesis On PD Stable on RA Pleural fluid cytology Negative Monitor chest tube drainage Roel Calle MD Jan 06, 2017 18:55
[2017-01-07] VITALS (7 sets, daily range): BP systolic 120–142; BP diastolic 64–82; PULSE 86–117; RESP 17–18; TEMP 97–98.6; O2SAT 96–99
[2017-01-07] MEDS: VITAMIN B CMPLX/VITC/FOLIC AC CAP PO SCH (08:07)
[2017-01-07] MEDS: amLODIPine BESYLATE 5 MG TAB PO SCH ×2 (08:07→21:57)
[2017-01-07] MEDS: SEVELAMER CARBONATE 800 MG TAB PO SCH ×3 (08:07→18:07)
[2017-01-07] MEDS: LISINOPRIL 5 MG TAB PO SCH ×2 (08:07→21:56)
[2017-01-07] MEDS: SODIUM CHLORIDE 0.9% FLUSH 10 ML FLUSH IV FLUSH SCH ×2 (08:08→21:56)
[2017-01-07] MEDS: DOCUSATE SODIUM 50 MG/SENNA 8.6 MG TAB PO SCH ×2 (08:08→21:56)
[2017-01-07] MEDS: METOPROLOL TARTRATE 25 MG TAB PO SCH ×2 (10:10→21:57)
--- NOTE | 2017-01-07 11:37 | HHI.PR ---
Subjective History of Present Illness Patient feel better. still have right side chest tube in still draining fluid.. . have tachycardia started on metoprolol Pleural fluid negative for malignant cell. Review of Systems Constitutional Constitutional: Fatigue, Weakness Pulmonary Pulmonary Remarks right side chest tube in place. Vitals/Results Vital Signs Vital Signs Date Time Temp Pulse Resp B/P (MAP) Pulse Ox O2 Delivery O2 Flow Rate FiO2 01/07/17 08:00 98.4 117 17 139/79 (99) 98 01/07/17 04:00 97.1 90 17 135/73 (93) 99 01/07/17 00:00 97.0 86 17 137/68 (91) 98 01/06/17 20:34 79 01/06/17 19:00 97.9 89 16 131/74 (93) 98 01/06/17 16:00 97.3 86 18 137/69 (91) 98 01/06/17 12:00 97.1 86 18 140/73 (95) 99 CBC/BMP: 01/05/17 0507 01/05/17 0507 Lab Results Laboratory Tests Test 01/06/17 20:05 Physical Exam General General Appearance: No Acute Distress, Comfortable Eyes Eye Exam: Sclera White, Extraocular Movement Intact Throat Throat Exam: Oral Mucosa [place] & Moist, Oral Pharynx Normal Neck Neck Exam: Neck Supple, Trachea Midline Pulmonary Resp Exam: Clear Bilaterally, Breath Sounds Equal, No Distress, Decreased Bases Resp Remarks Right side chest tube in. Cardiology CV Exam: Regular, Tachycardia Chest/Breast Chest/Breast Remarks right side chest tube in place. Gastrointestinal/Abdomen GI Exam: Soft, Non-Tender, Bowel Sounds Present Musculoskeletal MS Exam: Joints Intact Integumentary Skin Exam: Warm, Dry Extremeties Extremities Exam: Trace Edema Neurologic Neuro Exam: Alert, Awake, Oriented, No Focal Deficits Psychiatric Psych Exam: Appropriate Responses PUD Prophylasis PUD Prophylaxis: Protonix Assessment/Plan Assessment/Plan Assessment and Plan Assessment and Plan Large right sided pleural effusion s/p right side chest tube placement still draining fluid Fluid analysis negative for malignant cell. s/p CT scan of chest and chest x- ray. shows moderate left pleural effusion and Large right Hydropneumothorax with complex loculated component as well as pulmonary consolidation and possible rounded Atelectasis / mass pulmonary managing the patient. S/P Right lung collapse s/p chest tube in place End-stage renal disease on peritoneal dialysis nephrology following Anemia of chronic disease Resting dyspnea secondary to the pleural effusion..better after chest tube placement. Hypertension on home medicine will monitor blood pressure.+ Norvasc to 5 mg PO BID. Management Oncologist and Car Sander and pulmonary input noted Tachycardia started on metoprolol. Discussed with patient Check CBC with diff CMP in AM. Discussed Condition with: Patient Felipe Alvarado MD Jan 07, 2017 11:37
--- NOTE | 2017-01-07 14:55 | HHI.NPPN ---
Subjective History of Present Illness 56-year-old female with past medical history of hypertension, chronic anemia, history of breast cancer, end-stage renal disease on peritoneal dialysis, history of gastroesophageal reflux disease, history of GI bleeding came to the hospital referred by Dr. Maher her oncologist. The patient has this cough going on for the last five or six months and she had a chest CT done as an outpatient which showed that she has some pleural effusion and she was referred by her oncologist, Dr. Maher, to go to the hospital for possible thoracentesis. Additional Remarks Patient is alert, clinically same, with CT,. breathing is better. Review of Systems General Constitutional: Fatigue Respiratory Lungs: Cough Cardiovascular Cardiac: BACON Objective Data Data Vital Signs Date Time Temp Pulse Resp B/P (MAP) Pulse Ox O2 Delivery O2 Flow Rate FiO2 01/07/17 12:00 98.6 91 17 126/64 (84) 98 01/07/17 08:00 98.4 117 17 139/79 (99) 98 01/07/17 04:00 97.1 90 17 135/73 (93) 99 01/07/17 00:00 97.0 86 17 137/68 (91) 98 01/06/17 20:34 79 01/06/17 19:00 97.9 89 16 131/74 (93) 98 01/06/17 16:00 97.3 86 18 137/69 (91) 98 -: 01/05/17 0507 01/05/17 0507 Physical Exam General Appearance: No Acute Distress, Comfortable Eyes Eye Exam: Sclera White, Extraocular Movement Intact Throat Throat Exam: Oral Mucosa [place] & Moist, Oral Pharynx Normal Neck Neck Exam: Neck Supple, Trachea Midline Pulmonary Resp Exam: Clear Bilaterally, Breath Sounds Equal, No Distress, Decreased Bases Cardiology CV Exam: Regular, Tachycardia Gastrointestinal/Abdomen GI Exam: Soft, Non-Tender, Bowel Sounds Present Musculoskeletal MS Exam: Joints Intact Integumentary Skin Exam: Warm, Dry Extremeties Extremities Exam: Trace Edema Neurologic Neuro Exam: Alert, Awake, Oriented, No Focal Deficits Psychiatric Psych Exam: Appropriate Responses PUD Prophylasis PUD Prophylaxis: Protonix Assessment/Plan Assessment Summary: Anemia of CKD, Hypertension, End Stage Renal Disease Problem List: (1) Pleural effusion, right ICD Codes: J90 - Pleural effusion, not elsewhere classified Status: Acute (2) Sinus tachycardia ICD Codes: R00.0 - Tachycardia, unspecified Status: Acute (3) Hypertension ICD Codes: I10 - Essential (primary) hypertension Status: Acute (4) Anemia of chronic kidney failure ICD Codes: N18.9 - Chronic kidney disease, unspecified; D63.1 - Anemia in chronic kidney disease Status: Acute (5) ESRD on peritoneal dialysis ICD Codes: N18.6 - End stage renal disease; Z99.2 - Dependence on renal dialysis Status: Acute Plan Continues on PD, ongoing high creatinine. 946 ml PD prescription adjusted , increase volume and time. Right-sided chest tube 250CC Pulmonary following. BP better On Percocet Hgb. is stable. Creatinine is improving. Still has drainage from CT. Will need Pleurodesis. Pulmonary is following. Fluid from CT not decreasing.? Leak from Peritoneum Continue same PD. Dr Ernst to follow on Monday Problem Qualifiers (1) Anemia of chronic kidney failure: Camille Kovacs MD Jan 07, 2017 14:55
--- NOTE | 2017-01-07 18:26 | HHI.PR ---
Subjective Remarks 56 YOAA female with ESRD on PD, pl eff, ca breast Had right chest tube placed No CP no Fever No SOB Pl fluid transudate Chest tube drainage decreased Objective Vital Signs Vital Signs Date Time Temp Pulse Resp B/P (MAP) Pulse Ox O2 Delivery O2 Flow Rate FiO2 01/07/17 12:00 98.6 91 17 126/64 (84) 98 01/07/17 08:00 98.4 117 17 139/79 (99) 98 01/07/17 04:00 97.1 90 17 135/73 (93) 99 01/07/17 00:00 97.0 86 17 137/68 (91) 98 01/06/17 20:34 79 01/06/17 19:00 97.9 89 16 131/74 (93) 98 I/O 01/06/17 01/06/17 01/06/17 01/07/17 01/07/17 01/07/17 06:59 14:59 22:59 06:59 14:59 22:59 Intake Total 480 ml 740 ml 480 ml 480 ml 800 ml Output Total 100 ml 946 ml 150 ml 100 ml 90 ml Balance 380 ml -206 ml 330 ml 380 ml 800 ml -90 ml Intake Oral 480 ml 740 ml 480 ml 480 ml 800 ml Output Urine Total 0 ml Chest Tube Drainage Total 100 ml 150 ml 100 ml 90 ml Peritoneal Fluid 946 ml # Voids 1 1 1 2 # Bowel Movements 1 0 0 0 1 Result Diagram: 01/05/17 0507 01/05/17 050 Objective Remarks GENERAL: MBMN AA female,NAD SKIN: Warm and dry. HEAD: Normocephalic. EYES: No scleral icterus. No injection or drainage. NECK: Supple, trachea midline. No JVD or lymphadenopathy. CARDIOVASCULAR: Regular rate and rhythm without murmurs, gallops, or rubs. RESPIRATORY: Breath sounds equal bilaterally. No accessory muscle use. Right chest tube draining GASTROINTESTINAL: Abdomen soft, non-tender, nondistended. PD Cathetor MUSCULOSKELETAL: No cyanosis, or edema. BACK: Nontender without obvious deformity. No CVA tenderness. A/P Assessment and Plan Right pleural effusion S/P Chest tube placement ESRD on PD Atelactesis HTN GERD H/O Ca breast PLAN: Chest tube to suction Once pl fluid drianage decreased, will need pleurodesis On PD Stable on RA Pleural fluid cytology Negative Monitor chest tube drainage CXR in Roel Forte MD Jan 07, 2017 18:26
[2017-01-08] VITALS (7 sets, daily range): BP systolic 125–158; BP diastolic 68–79; PULSE 80–89; RESP 16–18; TEMP 97.5–99.1; O2SAT 96–97
--- NOTE | 2017-01-08 03:24 | RADRPT ---
EXAM DATE/TIME: 01/08/2017 02:45 [facility] COMPARISON: CHEST SINGLE AP, January 03, 2017, 6:01. INDICATIONS : Shortness of breath. MEDICAL HISTORY : Carcinoma, breast. Renal disease, end stage. Hypertension SURGICAL HISTORY : Right chest tube ENCOUNTER: Subsequent ACUITY: 1 week PAIN SCORE: 2/10 LOCATION: Bilateral chest FINDINGS: A single view of the chest demonstrates persistent scattered infiltrates throughout the right lung. R ight sided pigtail catheter overlies the hemidiaphragm. Small right pleural effusion. Some blunting o f left costophrenic angle suspicious for small pleural effusion on the left. The cardiac silhouette i s widened. Osseous structures are intact. CONCLUSION: Persistent dense infiltrate throughout the right lung with a chest tube in good position overlying th e right hemidiaphragm. The cardiac silhouette is widened. Ralph Quintanilla MD on January 08, 2017 at 3:21 Board Certified Radiologist. This report was verified electronically.
[2017-01-08] MEDS: LISINOPRIL 5 MG TAB PO SCH ×2 (07:57→20:14)
[2017-01-08] MEDS: METOPROLOL TARTRATE 25 MG TAB PO SCH ×2 (07:57→20:14)
[2017-01-08] MEDS: amLODIPine BESYLATE 5 MG TAB PO SCH ×2 (07:57→20:14)
[2017-01-08] MEDS: VITAMIN B CMPLX/VITC/FOLIC AC CAP PO SCH (07:57)
[2017-01-08] MEDS: SEVELAMER CARBONATE 800 MG TAB PO SCH ×3 (07:57→18:20)
[2017-01-08] MEDS: SODIUM CHLORIDE 0.9% FLUSH 10 ML FLUSH IV FLUSH SCH ×2 (07:58→20:13)
[2017-01-08] MEDS: DOCUSATE SODIUM 50 MG/SENNA 8.6 MG TAB PO SCH ×2 (07:58→20:14)
[2017-01-08 08:37] LABS: BASOPHIL % 0.6 % (0.0-2.0); EOSINOPHIL # 0.4 TH/MM3 (0-0.4); EOSINOPHIL % 5.3 % (0.0-4.0); HEMATOCRIT 32.3 % (35.0-46.0); LYMPH % 9.3 % (9.0-44.0); LYMPHOCYTE # 0.7 TH/MM3 (1.0-4.8); MEAN CELL VOLUME 74.3 FL (80.0-100.0); MEAN CORPUSCULAR HEMOGLOBIN 22.6 PG (27.0-34.0); MEAN CORPUSCULAR HGB CONC 30.5 % (32.0-36.0); MONO % 10.5 % (0.0-8.0); NEUT % 74.3 % (16.0-70.0); PLATELET COUNT 215 TH/MM3 (150-450); RED BLOOD COUNT 4.35 MIL/MM3 (4.00-5.30); RED CELL DISTRIBUTION WIDTH 27.1 % (11.6-17.2)
[2017-01-08 08:38] LABS: HEMO FLAGS AUTO DIFF
[2017-01-08 08:59] LABS: ANION GAP 15 MEQ/L (5-15); BICARBONATE 24.3 MEQ/L (21.0-32.0); BLOOD UREA NITROGEN 49 MG/DL (7-18); CHLORIDE 93 MEQ/L (98-107); GLOMERULAR FILTRATION RATE 3 ML/MIN (>89); POTASSIUM 4.8 MEQ/L (3.5-5.1); SODIUM (NA) 132 MEQ/L (136-145)
[2017-01-08 09:01] LABS: ALT (GPT) 13 U/L (10-53); AST (GOT) 9 U/L (15-37)
[2017-01-08 09:03] LABS: ALKALINE PHOSPHATASE 74 U/L (45-117); TOTAL BILIRUBIN ADULT 0.3 MG/DL (0.2-1.0)
[2017-01-08 09:43] LABS: ACANTHOCYTES 1+ (NORMAL)
[2017-01-08 09:44] LABS: OVALOCYTES 1+ (NORMAL)
[2017-01-08 09:45] LABS: PLATELET ESTIMATE SMEAR NORMAL (NORMAL); PLATELET MORPHOLOGY NORMAL (NORMAL); SCAN/DIFF AUTO DIFF CONFIRMED
--- NOTE | 2017-01-08 10:29 | HHI.PR ---
Subjective History of Present Illness Patient feel better. still have right side chest tube in still draining fluid.. . had tachycardia on metoprolol Pleural fluid negative for malignant cell. Review of Systems Constitutional Constitutional: Fatigue, Weakness Pulmonary Pulmonary Remarks right side chest tube in place. Vitals/Results Intake & Output 01/08/17 01/08/17 01/09/17 15:00 23:00 07:00 Output Total 1031 ml Balance -1031 ml Peritoneal Fluid 1031 ml Vital Signs Vital Signs Date Time Temp Pulse Resp B/P (MAP) Pulse Ox O2 Delivery O2 Flow Rate FiO2 01/08/17 08:00 99.1 87 16 142/77 (98) 96 01/08/17 04:00 98.3 86 16 125/70 (88) 96 01/08/17 00:00 98.2 80 16 142/71 (94) 97 01/07/17 20:30 86 01/07/17 19:00 97.9 92 18 142/82 (102) 96 01/07/17 18:45 Room Air 01/07/17 16:00 98.6 98 17 120/68 (85) 98 01/07/17 12:00 98.6 91 17 126/64 (84) 98 CBC/BMP: 01/08/17 0750 01/08/17 0750 Lab Results Laboratory Tests Test 01/08/17 07:50 White Blood Count 8.0 TH/MM3 Red Blood Count 4.35 MIL/MM3 Hemoglobin 9.8 GM/DL Hematocrit 32.3 % Mean Corpuscular Volume 74.3 FL Mean Corpuscular Hemoglobin 22.6 PG Mean Corpuscular Hemoglobin Concent 30.5 % Red Cell Distribution Width 27.1 % Platelet Count 215 TH/MM3 Mean Platelet Volume 8.6 FL Neutrophils (%) (Auto) 74.3 % Lymphocytes (%) (Auto) 9.3 % Monocytes (%) (Auto) 10.5 % Eosinophils (%) (Auto) 5.3 % Basophils (%) (Auto) 0.6 % Neutrophils # (Auto) 6.0 TH/MM3 Lymphocytes # (Auto) 0.7 TH/MM3 Monocytes # (Auto) 0.8 TH/MM3 Eosinophils # (Auto) 0.4 TH/MM3 Basophils # (Auto) 0.0 TH/MM3 CBC Comment AUTO DIFF Differential Comment AUTO DIFF CONFIRMED Platelet Estimate NORMAL Platelet Morphology Comment NORMAL Ovalocytes 1+ Acanthocytes 1+ Blood Urea Nitrogen 49 MG/DL Creatinine 15.68 MG/DL Random Glucose 80 MG/DL Total Protein 6.3 GM/DL Albumin 2.3 GM/DL Calcium Level 8.2 MG/DL Alkaline Phosphatase 74 U/L Aspartate Amino Transf (AST/SGOT) 9 U/L Alanine Aminotransferase (ALT/SGPT) 13 U/L Total Bilirubin 0.3 MG/DL Sodium Level 132 MEQ/L Potassium Level 4.8 MEQ/L Chloride Level 93 MEQ/L Carbon Dioxide Level 24.3 MEQ/L Anion Gap 15 MEQ/L Estimat Glomerular Filtration Rate 3 ML/MIN Physical Exam General General Appearance: No Acute Distress, Comfortable Eyes Eye Exam: Sclera White, Extraocular Movement Intact Throat Throat Exam: Oral Mucosa [place] & Moist, Oral Pharynx Normal Neck Neck Exam: Neck Supple, Trachea Midline Pulmonary Resp Exam: Clear Bilaterally, Breath Sounds Equal, No Distress, Decreased Bases Resp Remarks Right side chest tube in. Cardiology CV Exam: Regular Chest/Breast Chest/Breast Remarks right side chest tube in place. Gastrointestinal/Abdomen GI Exam: Soft, Non-Tender, Bowel Sounds Present Musculoskeletal MS Exam: Joints Intact Integumentary Skin Exam: Warm, Dry Extremeties Extremities Exam: Trace Edema Neurologic Neuro Exam: Alert, Awake, Oriented, No Focal Deficits Psychiatric Psych Exam: Appropriate Responses PUD Prophylasis PUD Prophylaxis: Protonix Assessment/Plan Assessment/Plan Assessment and Plan Assessment and Plan Large right sided pleural effusion s/p right side chest tube placement still draining fluid Fluid analysis negative for malignant cell. s/p CT scan of chest and chest x- ray. shows moderate left pleural effusion and Large right Hydropneumothorax with complex loculated component as well as pulmonary consolidation and possible rounded Atelectasis / mass pulmonary managing the patient. S/P Right lung collapse s/p chest tube in place End-stage renal disease on peritoneal dialysis nephrology following Anemia of chronic disease Resting dyspnea secondary to the pleural effusion..better after chest tube placement. Hypertension on home medicine will monitor blood pressure.+ Norvasc to 5 mg PO BID. Management Oncologist and Networker and pulmonary input noted Tachycardia on metoprolol. Discussed with patient Check CBC with diff CMP in AM. Discussed Condition with: Patient Felipe Alvarado MD Jan 08, 2017 10:29
--- NOTE | 2017-01-08 14:04 | HHI.NPPN ---
Subjective History of Present Illness 56-year-old female with past medical history of hypertension, chronic anemia, history of breast cancer, end-stage renal disease on peritoneal dialysis, history of gastroesophageal reflux disease, history of GI bleeding came to the hospital referred by Dr. Maher her oncologist. The patient has this cough going on for the last five or six months and she had a chest CT done as an outpatient which showed that she has some pleural effusion and she was referred by her oncologist, Dr. Maher, to go to the hospital for possible thoracentesis. Additional Remarks Patient is alert, clinically same, with CT,. breathing is better. Review of Systems General Constitutional: Fatigue Respiratory Lungs: Cough Cardiovascular Cardiac: BACON Objective Data Data 01/08/17 01/09/17 18:59 06:59 Output Total 1031 ml Balance -1031 ml Peritoneal Fluid 1031 ml Vital Signs Date Time Temp Pulse Resp B/P (MAP) Pulse Ox O2 Delivery O2 Flow Rate FiO2 01/08/17 08:00 99.1 87 16 142/77 (98) 96 01/08/17 04:00 98.3 86 16 125/70 (88) 96 01/08/17 00:00 98.2 80 16 142/71 (94) 97 01/07/17 20:30 86 01/07/17 19:00 97.9 92 18 142/82 (102) 96 01/07/17 18:45 Room Air 01/07/17 16:00 98.6 98 17 120/68 (85) 98 -: 01/08/17 0750 01/08/17 0750 Physical Exam General Appearance: No Acute Distress, Comfortable Eyes Eye Exam: Sclera White, Extraocular Movement Intact Throat Throat Exam: Oral Mucosa [place] & Moist, Oral Pharynx Normal Neck Neck Exam: Neck Supple, Trachea Midline Pulmonary Resp Exam: Clear Bilaterally, Breath Sounds Equal, No Distress, Decreased Bases Cardiology CV Exam: Regular Gastrointestinal/Abdomen GI Exam: Soft, Non-Tender, Bowel Sounds Present Musculoskeletal MS Exam: Joints Intact Integumentary Skin Exam: Warm, Dry Extremeties Extremities Exam: Trace Edema Neurologic Neuro Exam: Alert, Awake, Oriented, No Focal Deficits Psychiatric Psych Exam: Appropriate Responses PUD Prophylasis PUD Prophylaxis: Protonix Assessment/Plan Assessment Summary: Anemia of CKD, Hypertension, End Stage Renal Disease Problem List: (1) Pleural effusion, right ICD Codes: J90 - Pleural effusion, not elsewhere classified Status: Acute (2) Sinus tachycardia ICD Codes: R00.0 - Tachycardia, unspecified Status: Acute (3) Hypertension ICD Codes: I10 - Essential (primary) hypertension Status: Acute (4) Anemia of chronic kidney failure ICD Codes: N18.9 - Chronic kidney disease, unspecified; D63.1 - Anemia in chronic kidney disease Status: Acute (5) ESRD on peritoneal dialysis ICD Codes: N18.6 - End stage renal disease; Z99.2 - Dependence on renal dialysis Status: Acute Plan Continues on PD, ongoing high creatinine. 920 ml PD prescription adjusted , increase volume and time. Right-sided chest tube 340CC , Peritoneal Leak? consider Pleurodesis Pulmonary following. BP better On Percocet Hgb. is stable. Creatinine is improving. Still has drainage from CT. Will need Pleurodesis. Pulmonary is following. Continue same PD. Dr Ernst to follow on Monday Problem Qualifiers (1) Anemia of chronic kidney failure: Camille Kovacs MD Jan 08, 2017 14:04
--- NOTE | 2017-01-08 15:51 | HHI.PR ---
Subjective Remarks 56 YOAA female with ESRD on PD, pl eff, ca breast Had right chest tube placed No CP no Fever No SOB Pl fluid transudate Chest tube [id number] cc Objective Vital Signs Vital Signs Date Time Temp Pulse Resp B/P (MAP) Pulse Ox O2 Delivery O2 Flow Rate FiO2 01/08/17 08:00 99.1 87 16 142/77 (98) 96 01/08/17 04:00 98.3 86 16 125/70 (88) 96 01/08/17 00:00 98.2 80 16 142/71 (94) 97 01/07/17 20:30 86 01/07/17 19:00 97.9 92 18 142/82 (102) 96 01/07/17 18:45 Room Air 01/07/17 16:00 98.6 98 17 120/68 (85) 98 I/O 01/07/17 01/07/17 01/07/17 01/08/17 01/08/17 01/08/17 07:00 15:00 23:00 07:00 15:00 23:00 Intake Total 480 ml 800 ml 480 ml 480 ml Output Total 100 ml 1010 ml 250 ml 0 ml 1031 ml Balance 380 ml -210 ml 230 ml 480 ml -1031 ml Intake Oral 480 ml 800 ml 480 ml 480 ml Chest Tube Drainage Total 100 ml 90 ml 250 ml 0 ml Peritoneal Fluid 920 ml 1031 ml # Voids 1 2 2 3 # Bowel Movements 0 1 0 3 Result Diagram: 01/08/17 0750 01/08/17 0750 Objective Remarks GENERAL: MBMN AA female,NAD SKIN: Warm and dry. HEAD: Normocephalic. EYES: No scleral icterus. No injection or drainage. NECK: Supple, trachea midline. No JVD or lymphadenopathy. CARDIOVASCULAR: Regular rate and rhythm without murmurs, gallops, or rubs. RESPIRATORY: Breath sounds equal bilaterally. No accessory muscle use. Right chest tube draining GASTROINTESTINAL: Abdomen soft, non-tender, nondistended. PD Cathetor MUSCULOSKELETAL: No cyanosis, or edema. BACK: Nontender without obvious deformity. No CVA tenderness. A/P Assessment and Plan Right pleural effusion S/P Chest tube placement ESRD on PD Atelactesis HTN GERD H/O Ca breast PLAN: Chest tube to suction Once pl fluid drianage decreased, will need pleurodesis On PD Stable on RA Pleural fluid cytology Negative Monitor chest tube drainage Will need pleurodesis 1-2 days Roel Calle MD Jan 08, 2017 15:51
--- NOTE | 2017-01-08 20:19 | MB ---
cc: RANDA NOONAN M.D., HUMAYUN A. M.D. WEISS, RICHARD DATE OF CONSULTATION: 01/08/2017. REASON FOR CONSULTATION: The consult was called because of wide complex tachycardia noted on telemetry. HISTORY OF PRESENT ILLNESS: Ms. Garvin is a 56-year-old -[place] woman with history of hypertension, end-stage renal disease on peritoneal dialysis, no history of smoking or diabetes. Denies family history of coronary artery disease. Has history of borderline hyperlipidemia. She has had breast cancer and had chemotherapy and apparently had "damage to the heart" with valve problems. She had seen Dr. Trevino a few months ago to be established. The consult was called of wide complex tachycardia noted on telemetry. She has had brief palpitations but no dizziness or syncope. Denies chest pain or shortness of breath. Sleeps with her head up. She has a chest tube on the right side. Denies paroxysmal nocturnal dyspnea or leg swelling. Denies claudication. ALLERGIES: NO KNOWN DRUG ALLERGIES. CURRENT MEDICATIONS: 1. Lopressor 25 milligrams p.o. twice a day. 2. Amlodipine 5 milligrams p.o. twice a day. 3. Prinivil 5 milligrams p.o. twice a day. 4. Renvela 1600 milligrams p.o. three times a day. 5. Senna one tablet p.o. twice a day. 6. Rocaltrol 0.5 milligrams on Monday, Monday and Monday. 7. Percocet PRN for pain. PAST MEDICAL HISTORY / PAST SURGICAL HISTORY: 1. What is mentioned above. 2. No history of cardiac arrhythmias. 3. Right side breast cancer status post radiation therapy and chemotherapy with Herceptin. 4. End-stage renal disease on peritoneal dialysis. 5. Anemia of chronic disease. 6. Acid reflux disease. 7. Prior history of GI bleed. 8. Left upper extremity AV fistula. 9. Peritoneal dialysis catheter insertion. 10. Right breast lumpectomy in the past. ALLERGIES: NO KNOWN DRUG ALLERGIES. FAMILY HISTORY: Positive for hypertension and negative for coronary artery disease, cancer or diabetes. SOCIAL HISTORY: Denies smoking, ethyl alcohol abuse or recreational drug abuse. She is not and lives on her own. PHYSICAL EXAMINATION: GENERAL: On physical exam, a 56-year-old -Dominican woman lying in bed in no apparent distress. Alert and oriented times three and answers questions appropriately. VITAL SIGNS: Blood pressure is 130/70 mmHg with pulse of 86 beats per minute and regular, respirations 14 per minute, afebrile. HEAD, EYES, EARS, NOSE, THROAT: Head is normocephalic. Pupils are equal and reactive. Throat is within normal limits. NECK: The neck is supple. Difficult to access carotid bruits. She was not able to hold her breath despite multiple attempts however no clear evidence of bruit. No jugular venous distention noted. LUNGS: Diminished air entry in the right lung with a few rhonchi at the lower one-third. CARDIOVASCULAR: S1 and S2 are muffled with a 2-3/6 early diastolic murmur at the left sternal border right second intercostal space. A 2/6 systolic murmur at the left sternal border and also at the apex. Faint S4 gallop. ABDOMEN: Somewhat distended but lax and nontender. Normoactive bowel sounds. No organomegaly. No masses felt. EXTREMITIES: No cyanosis, clubbing or edema. PULSES: 2+ bilaterally and no bruit noted. NEUROLOGIC: Grossly intact with no focal deficits. RECTAL: Exam deferred. EKGS: The EKG today shows sinus rhythm with left ventricular hypertrophy and left axis deviation, high lateral T wave changes. LABORATORY DATA: White count of 8.0, hemoglobin 9.8 and a platelet count of 215,000. Sodium 132, potassium 4.8, BUN of 49, creatinine 15.68. Liver function tests within normal limits except for albumin of 2.3. Magnesium was 3.3. IMAGING STUDIES: Chest x-ray today shows persistent dense infiltrates throughout the right lung with chest tube in good position and enlarged cardiac silhouette. ASSESSMENT AND RECOMMENDATIONS: 1. Wide complex tachycardia up to eight beats. She has had brief episodes of the same through her admission. She has bouts of atrial tachycardia as well, some of which may represent paroxysmal atrial fibrillation. Her wide complex tachycardia episodes are also somewhat irregular which may represent atrial with aberrant conduction. A complete set of electrolytes as well as a TSH and free T4 levels will be checked. Her [id number] score is around 1 with her history of hypertension. She has no prior history of congestive heart failure or diabetes or peripheral artery disease or [employer] events. Low-dose aspirin will be added to the regimen with close watch on her hemoglobin and hematocrit because of her history of GI bleed in the past. The Lopressor will be increased to 50 milligrams p.o. twice a day. With her history of valve disease and her current arrhythmia, 2-D echocardiogram will be ordered. Continue to monitor on telemetry. Her potassium and magnesium levels were normal today and phosphorus level will be checked for tomorrow. Dr. Reyna will follow her cardiac care from tomorrow. He is covering Dr. Trevino. Thank you for the consultation. MD JW Scott/CHUYITA /7:45 PM /8:00 PM
[2017-01-08] MEDS ORDERED: METOPROLOL TARTRATE 25 MG TAB PO ONE (21:15)
[2017-01-09] VITALS (7 sets, daily range): BP systolic 119–139; BP diastolic 64–72; PULSE 66–86; RESP 16–18; TEMP 95.6–98.9; O2SAT 91–100
[2017-01-09] MEDS: ACETAMINOPHEN 325 MG TAB PO PRN (04:56)
[2017-01-09 07:54] LABS: AUTOMATED NEUTROPHIL # 6.7 TH/MM3 (1.8-7.7); BASOPHIL # 0.1 TH/MM3 (0-0.2); BASOPHIL % 0.8 % (0.0-2.0); EOSINOPHIL # 0.4 TH/MM3 (0-0.4); EOSINOPHIL % 4.6 % (0.0-4.0); HEMATOCRIT 30.7 % (35.0-46.0); LYMPH % 8.7 % (9.0-44.0); LYMPHOCYTE # 0.8 TH/MM3 (1.0-4.8); MEAN CELL VOLUME 73.6 FL (80.0-100.0); MEAN CORPUSCULAR HEMOGLOBIN 22.7 PG (27.0-34.0); MEAN CORPUSCULAR HGB CONC 30.9 % (32.0-36.0); MONO % 10.6 % (0.0-8.0); NEUT % 75.3 % (16.0-70.0); PLATELET COUNT 175 TH/MM3 (150-450); RED BLOOD COUNT 4.17 MIL/MM3 (4.00-5.30); RED CELL DISTRIBUTION WIDTH 26.2 % (11.6-17.2); WHITE BLOOD COUNT 8.8 TH/MM3 (4.0-11.0)
[2017-01-09 07:56] LABS: HEMO FLAGS AUTO DIFF
[2017-01-09] MEDS: SEVELAMER CARBONATE 800 MG TAB PO SCH ×5 (08:00→18:12)
[2017-01-09 08:14] LABS: ALKALINE PHOSPHATASE 71 U/L (45-117); ALT (GPT) 13 U/L (10-53); ANION GAP 14 MEQ/L (5-15); AST (GOT) 7 U/L (15-37); BICARBONATE 24.4 MEQ/L (21.0-32.0); BLOOD UREA NITROGEN 52 MG/DL (7-18); CHLORIDE 90 MEQ/L (98-107); GLOMERULAR FILTRATION RATE 3 ML/MIN (>89); POTASSIUM 4.7 MEQ/L (3.5-5.1); SODIUM (NA) 128 MEQ/L (136-145); TOTAL BILIRUBIN ADULT 0.3 MG/DL (0.2-1.0)
[2017-01-09 08:22] LABS: FREE T4 0.9 NG/DL (0.76-1.46)
[2017-01-09 08:41] LABS: ACANTHOCYTES 1+ (NORMAL); HELMET CELLS OCC (NORMAL); OVALOCYTES 1+ (NORMAL); PLATELET ESTIMATE SMEAR NORMAL (NORMAL); PLATELET MORPHOLOGY NORMAL (NORMAL); SCAN/DIFF AUTO DIFF CONFIRMED; TEARDROP RBCS 1+ (NORMAL)
[2017-01-09] MEDS: DOCUSATE SODIUM 50 MG/SENNA 8.6 MG TAB PO SCH ×2 (09:58→22:13)
[2017-01-09] MEDS: METOPROLOL TARTRATE 50 MG TAB PO SCH ×2 (09:59→22:13)
[2017-01-09] MEDS: amLODIPine BESYLATE 5 MG TAB PO SCH ×2 (09:59→22:13)
[2017-01-09] MEDS: VITAMIN B CMPLX/VITC/FOLIC AC CAP PO SCH (09:59)
[2017-01-09] MEDS: SODIUM CHLORIDE 0.9% FLUSH 10 ML FLUSH IV FLUSH SCH ×2 (10:00→22:14)
[2017-01-09] MEDS: LISINOPRIL 5 MG TAB PO SCH ×2 (10:00→22:13)
[2017-01-09] MEDS: oxyCODONE/ACETAMINOPHEN 5 MG/325 MG TAB PO PRN ×2 (10:04→18:23)
--- NOTE | 2017-01-09 10:36 | HHI.PR ---
Subjective History of Present Illness Patient feel better. still have right side chest tube in still draining fluid..once fluid drained out need pleurodehesis . have non sustained venticular tachycardia cardiology consulted check magnasium level. Review of Systems Constitutional Constitutional: Fatigue, Weakness Pulmonary Pulmonary Remarks right side chest tube in place. Vitals/Results Intake & Output 01/09/17 01/09/17 01/10/17 14:59 22:59 06:59 Output Total 1029 ml Balance -1029 ml Chest Tube Drainage Total 0 ml Peritoneal Fluid 1029 ml Vital Signs Vital Signs Date Time Temp Pulse Resp B/P (MAP) Pulse Ox O2 Delivery O2 Flow Rate FiO2 01/09/17 08:00 97.0 77 18 139/71 (93) 96 01/09/17 06:00 17 01/09/17 03:14 98.9 83 18 135/66 (89) 98 01/09/17 01:10 Room Air 01/09/17 00:25 98.6 86 18 122/68 (86) 98 01/08/17 20:08 86 01/08/17 19:46 97.5 89 18 158/79 (105) 97 01/08/17 16:00 97.7 86 18 130/71 (90) 96 01/08/17 12:00 97.6 82 18 126/68 (87) 97 CBC/BMP: 01/09/17 0715 01/09/17 0715 Lab Results Laboratory Tests Test 01/08/17 16:00 01/09/17 07:15 Magnesium Level 3.3 MG/DL White Blood Count 8.8 TH/MM3 Red Blood Count 4.17 MIL/MM3 Hemoglobin 9.5 GM/DL Hematocrit 30.7 % Mean Corpuscular Volume 73.6 FL Mean Corpuscular Hemoglobin 22.7 PG Mean Corpuscular Hemoglobin Concent 30.9 % Red Cell Distribution Width 26.2 % Platelet Count 175 TH/MM3 Mean Platelet Volume 8.6 FL Neutrophils (%) (Auto) 75.3 % Lymphocytes (%) (Auto) 8.7 % Monocytes (%) (Auto) 10.6 % Eosinophils (%) (Auto) 4.6 % Basophils (%) (Auto) 0.8 % Neutrophils # (Auto) 6.7 TH/MM3 Lymphocytes # (Auto) 0.8 TH/MM3 Monocytes # (Auto) 0.9 TH/MM3 Eosinophils # (Auto) 0.4 TH/MM3 Basophils # (Auto) 0.1 TH/MM3 CBC Comment AUTO DIFF Differential Comment AUTO DIFF CONFIRMED Platelet Estimate NORMAL Platelet Morphology Comment NORMAL Tear Drop Cells 1+ Ovalocytes 1+ Helmet Cells OCC Acanthocytes 1+ Blood Urea Nitrogen 52 MG/DL Creatinine 16.70 MG/DL Random Glucose 87 MG/DL Total Protein 6.5 GM/DL Albumin 2.2 GM/DL Calcium Level 8.7 MG/DL Alkaline Phosphatase 71 U/L Aspartate Amino Transf (AST/SGOT) 7 U/L Alanine Aminotransferase (ALT/SGPT) 13 U/L Total Bilirubin 0.3 MG/DL Sodium Level 128 MEQ/L Potassium Level 4.7 MEQ/L Chloride Level 90 MEQ/L Carbon Dioxide Level 24.4 MEQ/L Anion Gap 14 MEQ/L Estimat Glomerular Filtration Rate 3 ML/MIN Phosphorus Level 8.3 MG/DL Free Thyroxine 0.90 NG/DL Thyroid Stimulating Hormone 3rd Gen 2.700 uIU/ML Physical Exam General General Appearance: No Acute Distress, Comfortable Eyes Eye Exam: Sclera White, Extraocular Movement Intact Throat Throat Exam: Oral Mucosa [place] & Moist, Oral Pharynx Normal Neck Neck Exam: Neck Supple, Trachea Midline Pulmonary Resp Exam: Clear Bilaterally, Breath Sounds Equal, No Distress, Decreased Bases Resp Remarks Right side chest tube in. Cardiology CV Exam: Regular Chest/Breast Chest/Breast Remarks right side chest tube in place. Gastrointestinal/Abdomen GI Exam: Soft, Non-Tender, Bowel Sounds Present Musculoskeletal MS Exam: Joints Intact Integumentary Skin Exam: Warm, Dry Extremeties Extremities Exam: Trace Edema Neurologic Neuro Exam: Alert, Awake, Oriented, No Focal Deficits Psychiatric Psych Exam: Appropriate Responses PUD Prophylasis PUD Prophylaxis: Protonix Assessment/Plan Assessment/Plan Assessment and Plan Assessment and Plan Large right sided pleural effusion s/p right side chest tube placement still draining fluid Fluid once fluid drained out need pleurodehesis analysis negative for malignant cell. s/p CT scan of chest and chest x- ray. shows moderate left pleural effusion and Large right Hydropneumothorax with complex loculated component as well as pulmonary consolidation and possible rounded Atelectasis / mass pulmonary managing the patient. S/P Right lung collapse s/p chest tube in place End-stage renal disease on peritoneal dialysis nephrology following Anemia of chronic disease Resting dyspnea secondary to the pleural effusion..better after chest tube placement. Hypertension on home medicine will monitor blood pressure.+ Norvasc to 5 mg PO BID. Management Oncologist and Individualized Education Plan Aide and pulmonary input noted non sustained venticular tachycardia consult cardiology on metoprolol Discussed with patient Check CBC with diff CMP in AM. Discussed Condition with: Patient Felipe Alvarado MD Jan 09, 2017 10:36
--- NOTE | 2017-01-09 15:45 | EKG ---
Date Performed: 01/08/2017 Time Performed: 13:44:21 PTAGE: 56 years EKG: Sinus rhythm POSSIBLE LEFT ATRIAL ENLARGEMENT MARKED LEFT AXIS DEVIATION POSSIBLE ANTERIOR MYOCARDIAL INFARCTION , OF INDETERMINATE AGE When compared to previous tracing, sinus rate is slower. Previously seen T wav e changes have resolved. R wave progression is worse. ABNORMAL ECG PREVIOUS TRACING : 04/11/2016 15.35 DOCTOR: Jace Mead Interpretating Date/Time 01/09/2017 15:46:24
[2017-01-09] MEDS: ONDANSETRON HCL 4 MG/2 ML VIAL IVP PRN (18:17)
[2017-01-09] MEDS: CALCITRIOL 0.25 MCG CAP PO SCH ×2 (18:18→22:13)
[2017-01-09] MEDS: SODIUM CHLORIDE 0.9% FLUSH 10 ML FLUSH IV FLUSH PRN (18:18)
--- NOTE | 2017-01-09 20:20 | ECHRPT ---
Indication: ATRIAL FIB/ FLUTTER CONCLUSIONS Mildly dilated left ventricle. Mild concentric left ventricular hypertrophy. The left ventricular systolic function is moderately reduced with an estimated ejection fraction in the range of 40-45%. There is global left ventricular dysfunction. Doppler parameters are consistent with impaired left ventricular relaxtion (grade 1 diastolic dysfun ction). The left atrial size is moderately dilated. Mild thickening of the mitral valve leaflets. Moderate mitral valve regurgitation. Aortic valve sclerosis is present. There is mild tricuspid valve regurgitation. There is estimated mild pulmonary hypertension present (range 40-50 mmHg). BP: / HR: Rhythm: Sinus MEASUREMENTS (Male / Female) Normal Values Technical Quality:Fair 2D ECHO LV Diastolic Diameter PLAX 5.0 cm 4.2 - 5.9 / 3.9 - 5.3 cm LV Systolic Diameter PLAX 4.6 cm IVS Diastolic Thickness 1.2 cm 0.6 - 1.0 / 0.6 - 0.9 cm LVPW Diastolic Thickness 1.2 cm 0.6 - 1.0 / 0.6 - 0.9 cm LV Relative Wall Thickness 0.5 LVOT Diameter 2.0 cm Aortic Root Diameter 2.7 cm LA Systolic Diameter LX 3.1 cm 3.0 - 4.0 / 2.7 - 3.8 cm M-MODE AV Cusp Separation MM 1.7 cm DOPPLER AV Peak Velocity 186.0 cm/s AV Peak Gradient 13.8 mmHg AV Mean Gradient 6.0 mmHg AV Velocity Time Integral 32.5 cm LVOT Peak Velocity 95.5 cm/s LVOT Peak Gradient 3.6 mmHg LVOT Velocity Time Integral 17.9 cm AV Area Cont Eq vti 1.7 cm AV Area Cont Eq pk 1.6 cm Mitral E Point Velocity 69.1 cm/s Mitral A Point Velocity 101.0 cm/s Mitral E to A Ratio 0.7 LV E' Lateral Velocity 7.6 cm/s Mitral E to LV E' Lateral Ratio 9.1 LV E' Septal Velocity 5.9 cm/s Mitral E to LV E' Septal Ratio 11.6 TR Peak Velocity 293.0 cm/s TR Peak Gradient 34.3 mmHg PV Peak Velocity 75.2 cm/s PV Peak Gradient 2.3 mmHg FINDINGS LEFT VENTRICLE Mildly dilated left ventricle. Mild concentric left ventricular hypertrophy. The left ventricular systolic function is moderately reduced with an estimated ejection fraction in the range of 40-45%. There is global left ventricular dysfunction. Doppler parameters are consistent with impaired left ventricular relaxtion (grade 1 diastolic dysfun ction). RIGHT VENTRICLE Normal right ventricular size and systolic function. LEFT ATRIUM The left atrial size is moderately dilated. RIGHT ATRIUM The right atrial size is normal. ATRIAL SEPTUM Normal atrial septal thickness without atrial level shunting by limited color doppler interrogation. AORTA The aortic root and proximal ascending aorta are not well visualized. MITRAL VALVE Mild thickening of the mitral valve leaflets. Moderate mitral valve regurgitation. AORTIC VALVE Aortic valve sclerosis is present. No aortic valve regurgitation. No aortic valve stenosis. TRICUSPID VALVE There is mild tricuspid valve regurgitation. There is estimated mild pulmonary hypertension present (range 40-50 mmHg). PULMONARY VALVE No pulmonary valve regurgitation or stenosis. VESSELS The inferior vena cava is normal in size. There is greater than 50% respiratory change in dimension of the inferior vena cava (normal). PERICARDIUM No pericardial effusion. Flora Reyna MD, FACC (Electronically Signed) Final Date:09 January 2017 20:20
--- NOTE | 2017-01-09 21:21 | HHI.PR ---
Subjective Remarks 56 YOAA female with ESRD on PD, pl eff, ca breast Had right chest tube placed No CP no Fever No SOB Pl fluid transudate Objective Vital Signs Vital Signs Date Time Temp Pulse Resp B/P (MAP) Pulse Ox O2 Delivery O2 Flow Rate FiO2 01/09/17 16:00 97.3 74 18 134/71 (92) 100 01/09/17 12:00 95.6 66 18 119/64 (82) 91 01/09/17 10:04 Room Air 01/09/17 08:09 72 01/09/17 08:00 97.0 77 18 139/71 (93) 96 01/09/17 06:00 17 01/09/17 03:14 98.9 83 18 135/66 (89) 98 01/09/17 01:10 Room Air 01/09/17 00:25 98.6 86 18 122/68 (86) 98 I/O 01/08/17 01/08/17 01/08/17 01/09/17 01/09/17 01/09/17 07:00 15:00 23:00 07:00 15:00 23:00 Intake Total 480 ml 480 ml 480 ml 480 ml 480 ml Output Total 0 ml 1151 ml 0 ml 1149 ml Balance 480 ml -671 ml 480 ml 480 ml -669 ml Intake Oral 480 ml 480 ml 480 ml 480 ml 480 ml Chest Tube Drainage Total 0 ml 120 ml 0 ml 120 ml Peritoneal Fluid 1031 ml 1029 ml # Voids 3 0 2 1 1 # Bowel Movements 3 1 0 1 Result Diagram: 01/09/1715 01/09/17 0715 Objective Remarks GENERAL: MBMN AA female,NAD SKIN: Warm and dry. HEAD: Normocephalic. EYES: No scleral icterus. No injection or drainage. NECK: Supple, trachea midline. No JVD or lymphadenopathy. CARDIOVASCULAR: Regular rate and rhythm without murmurs, gallops, or rubs. RESPIRATORY: Breath sounds equal bilaterally. No accessory muscle use. Right chest tube draining GASTROINTESTINAL: Abdomen soft, non-tender, nondistended. PD Cathetor MUSCULOSKELETAL: No cyanosis, or edema. BACK: Nontender without obvious deformity. No CVA tenderness. A/P Assessment and Plan Right pleural effusion S/P Chest tube placement ESRD on PD Atelactesis HTN GERD H/O Ca breast PLAN: Chest tube to suction Once pl fluid drianage decreased, will need pleurodesis On PD Stable on RA Pleural fluid cytology Negative Monitor chest tube drainage Will need pleurodesis Roel Calle MD Jan 09, 2017 21:21
--- NOTE | 2017-01-09 21:35 | PD.CARD.PN ---
Subjective Subjective Remarks No CP or excessive SOB, chest tube in place Objective Medications Current Medications Medications (Trade) Dose Ordered Sig/Louie Route Start Time Stop Time Status Last Admin (Prinivil) 5 mg BID PO 12/27/16 21:00 01/09/17 10:00 (Renvela) 1,600 mg TIDAC PO 12/27/16 17:00 01/09/17 18:12 (Nephrocaps) 1 cap DAILY PO 12/28/16 09:00 01/09/17 09:59 (Rocaltrol) 0.5 mcg MoWeFr@17 PO 12/28/16 17:00 01/06/17 18:05 (NS Flush) 2 ml UNSCH PRN IV FLUSH 12/27/16 15:30 01/09/17 18:18 (NS Flush) 2 ml BID IV FLUSH 12/27/16 21:00 01/09/17 10:00 (Tylenol) 650 mg Q4H PRN PO 12/27/16 15:30 01/09/17 04:56 (Zofran Inj) 4 mg Q6H PRN IVP 12/27/16 15:30 01/09/17 18:17 (Narcan Inj) 0.4 mg UNSCH PRN IV 12/27/16 15:30 (Annie-Colace) 1 tab BID PO 12/27/16 21:00 01/08/17 20:14 (Milk Of Magnesia Liq) 30 ml Q12H PRN PO 12/27/16 15:30 (Senokot) 17.2 mg Q12H PRN PO 12/27/16 15:30 01/04/17 21:34 (Dulcolax Supp) 10 mg DAILY PRN RECTAL 12/27/16 15:30 (Lactulose Liq) 30 ml DAILY PRN PO 12/27/16 15:30 (Percocet 5-325 Mg) 1 tab Q6H PRN PO 12/28/16 18:00 01/09/17 18:23 (Heparin Inj) 1,000 units WITH DIALYSIS PRN XX 12/28/16 17:15 (NS Flush) 10 ml UNSCH PRN IV FLUSH 12/28/16 17:15 (Norvasc) 5 mg BID PO 12/29/16 21:00 01/09/17 09:59 (Lopressor) 50 mg BID PO 01/09/17 09:00 01/09/17 09:59 Vital Signs / I&O Vital Signs Date Time Temp Pulse Resp B/P (MAP) Pulse Ox O2 Delivery O2 Flow Rate FiO2 01/09/17 16:00 97.3 74 18 134/71 (92) 100 01/09/17 12:00 95.6 66 18 119/64 (82) 91 01/09/17 10:04 Room Air 01/09/17 08:09 72 01/09/17 08:00 97.0 77 18 139/71 (93) 96 01/09/17 06:00 17 01/09/17 03:14 98.9 83 18 135/66 (89) 98 01/09/17 01:10 Room Air 01/09/17 00:25 98.6 86 18 122/68 (86) 98 I/O 01/08/17 01/08/17 01/08/17 01/09/17 01/09/17 01/09/17 07:00 15:00 23:00 07:00 15:00 23:00 Intake Total 480 ml 480 ml 480 ml 480 ml 480 ml Output Total 0 ml 1151 ml 0 ml 1149 ml Balance 480 ml -671 ml 480 ml 480 ml -669 ml Intake Oral 480 ml 480 ml 480 ml 480 ml 480 ml Chest Tube Drainage Total 0 ml 120 ml 0 ml 120 ml Peritoneal Fluid 1031 ml 1029 ml # Voids 3 0 2 1 1 # Bowel Movements 3 1 0 1 Physical Exam GENERAL: IN NAD, CT in place SKIN: Warm and dry. HEAD: Normocephalic. EYES: No scleral icterus. No injection or drainage. NECK: Supple, trachea midline. No JVD or lymphadenopathy. CARDIOVASCULAR: Regular rate and rhythm without murmurs, gallops, or rubs. RESPIRATORY: Breath sounds equal bilaterally. No accessory muscle use. GASTROINTESTINAL: Abdomen soft, non-tender, nondistended. MUSCULOSKELETAL: No cyanosis, or edema. Laboratory Laboratory Tests Test 01/09/17 07:15 White Blood Count 8.8 TH/MM3 Red Blood Count 4.17 MIL/MM3 Hemoglobin 9.5 GM/DL Hematocrit 30.7 % Mean Corpuscular Volume 73.6 FL Mean Corpuscular Hemoglobin 22.7 PG Mean Corpuscular Hemoglobin Concent 30.9 % Red Cell Distribution Width 26.2 % Platelet Count 175 TH/MM3 Mean Platelet Volume 8.6 FL Neutrophils (%) (Auto) 75.3 % Lymphocytes (%) (Auto) 8.7 % Monocytes (%) (Auto) 10.6 % Eosinophils (%) (Auto) 4.6 % Basophils (%) (Auto) 0.8 % Neutrophils # (Auto) 6.7 TH/MM3 Lymphocytes # (Auto) 0.8 TH/MM3 Monocytes # (Auto) 0.9 TH/MM3 Eosinophils # (Auto) 0.4 TH/MM3 Basophils # (Auto) 0.1 TH/MM3 CBC Comment AUTO DIFF Differential Comment AUTO DIFF CONFIRMED Platelet Estimate NORMAL Platelet Morphology Comment NORMAL Tear Drop Cells 1+ Ovalocytes 1+ Helmet Cells OCC Acanthocytes 1+ Blood Urea Nitrogen 52 MG/DL Creatinine 16.70 MG/DL Random Glucose 87 MG/DL Total Protein 6.5 GM/DL Albumin 2.2 GM/DL Calcium Level 8.7 MG/DL Alkaline Phosphatase 71 U/L Aspartate Amino Transf (AST/SGOT) 7 U/L Alanine Aminotransferase (ALT/SGPT) 13 U/L Total Bilirubin 0.3 MG/DL Sodium Level 128 MEQ/L Potassium Level 4.7 MEQ/L Chloride Level 90 MEQ/L Carbon Dioxide Level 24.4 MEQ/L Anion Gap 14 MEQ/L Estimat Glomerular Filtration Rate 3 ML/MIN Phosphorus Level 8.3 MG/DL Free Thyroxine 0.90 NG/DL Thyroid Stimulating Hormone 3rd Gen 2.700 uIU/ML Imaging Last Impressions Chest X-Ray 01/08/17 0600 Signed Impressions: Service Date/Time: Sunday, January 08, 2017 02:45 - CONCLUSION: Persistent dense infiltrate throughout the right lung with a chest tube in good position overlying the right hemidiaphragm. The cardiac silhouette is widened. Ralph Quintanilla MD Chest Tube Insertion 12/28/16 0000 Signed Impressions: Service Date/Time: Wednesday, December 28, 2016 10:05 - CONCLUSION: Uncomplicated chest tube placement as above. The output will need to be monitored for several days to evaluate the volume of output. Consideration can be made to pleurodesis if the output is sufficient. Lawrence Taylor Jr., MD Assessment and Plan Problem List: (1) Wide-complex tachycardia ICD Codes: I47.2 - Ventricular tachycardia (2) Pleural effusion, right ICD Codes: J90 - Pleural effusion, not elsewhere classified Status: Acute (3) ESRD on peritoneal dialysis ICD Codes: N18.6 - End stage renal disease; Z99.2 - Dependence on renal dialysis Status: Acute (4) Anemia of chronic kidney failure ICD Codes: N18.9 - Chronic kidney disease, unspecified; D63.1 - Anemia in chronic kidney disease Status: Acute (5) Hypertension ICD Codes: I10 - Essential (primary) hypertension Status: Acute (6) Sinus tachycardia ICD Codes: R00.0 - Tachycardia, unspecified Status: Acute Assessment and Plan No new cardiac issues. Rhythm stable. Continue beta ivis. Increase activity as tolerated. Continue monitoring on telemetry. Problem Qualifiers (1) Anemia of chronic kidney failure: Flora Reyna MD Jan 09, 2017 21:35
--- NOTE | 2017-01-09 22:18 | HHI.NPPN ---
Subjective History of Present Illness 56-year-old female with past medical history of hypertension, chronic anemia, history of breast cancer, end-stage renal disease on peritoneal dialysis, history of gastroesophageal reflux disease, history of GI bleeding came to the hospital referred by Dr. Maher her oncologist. The patient has this cough going on for the last five or six months and she had a chest CT done as an outpatient which showed that she has some pleural effusion and she was referred by her oncologist, Dr. Maher, to go to the hospital for possible thoracentesis. Additional Remarks Patient is alert, no SOB, has mild epi. pain and nausea, PD fluid is clear. Review of Systems General Constitutional: Fatigue Respiratory Lungs: Cough Cardiovascular Cardiac: BACON Objective Data Data 01/09/17 01/10/17 19:00 07:00 Intake Total 480 ml Output Total 1149 ml Balance -669 ml Intake Oral 480 ml Chest Tube Drainage Total 120 ml Peritoneal Fluid 1029 ml # Voids 1 # Bowel Movements 1 Vital Signs Date Time Temp Pulse Resp B/P (MAP) Pulse Ox O2 Delivery O2 Flow Rate FiO2 01/09/17 20:25 98.0 77 16 124/72 (89) 97 01/09/17 16:00 97.3 74 18 134/71 (92) 100 01/09/17 12:00 95.6 66 18 119/64 (82) 91 01/09/17 10:04 Room Air 01/09/17 08:09 72 01/09/17 08:00 97.0 77 18 139/71 (93) 96 01/09/17 06:00 17 01/09/17 03:14 98.9 83 18 135/66 (89) 98 01/09/17 01:10 Room Air 01/09/17 00:25 98.6 86 18 122/68 (86) 98 -: 01/09/17 0715 01/09/17 0715 Physical Exam General Appearance: No Acute Distress, Comfortable Eyes Eye Exam: Sclera White, Extraocular Movement Intact Throat Throat Exam: Oral Mucosa [place] & Moist, Oral Pharynx Normal Neck Neck Exam: Neck Supple, Trachea Midline Pulmonary Resp Exam: Clear Bilaterally, Breath Sounds Equal, No Distress, Decreased Bases Cardiology CV Exam: Regular Gastrointestinal/Abdomen GI Exam: Soft, Non-Tender, Bowel Sounds Present Musculoskeletal MS Exam: Joints Intact Integumentary Skin Exam: Warm, Dry Extremeties Extremities Exam: Trace Edema Neurologic Neuro Exam: Alert, Awake, Oriented, No Focal Deficits Psychiatric Psych Exam: Appropriate Responses PUD Prophylasis PUD Prophylaxis: Protonix Assessment/Plan Assessment Summary: Anemia of CKD, Hypertension, End Stage Renal Disease Problem List: (1) Pleural effusion, right ICD Codes: J90 - Pleural effusion, not elsewhere classified Status: Acute (2) Sinus tachycardia ICD Codes: R00.0 - Tachycardia, unspecified Status: Acute (3) Hypertension ICD Codes: I10 - Essential (primary) hypertension Status: Acute (4) Anemia of chronic kidney failure ICD Codes: N18.9 - Chronic kidney disease, unspecified; D63.1 - Anemia in chronic kidney disease Status: Acute (5) ESRD on peritoneal dialysis ICD Codes: N18.6 - End stage renal disease; Z99.2 - Dependence on renal dialysis Status: Acute Plan Continues on PD, ongoing high creatinine. 946 ml PD prescription adjusted , increase volume and time. Right-sided chest tube. Pulmonary following. BP better On Percocet Hgb. is stable. Creatinine is improving. Still has drainage from CT. Will need Pleurodesis. Pulmonary is following. Fluid from CT not decreasing. Pulmonary following,add protonix and Reglan. Problem Qualifiers (1) Anemia of chronic kidney failure: Brina Ernst MD Jan 09, 2017 22:18
[2017-01-10 00:25] VITALS: BP 119/67; PULSE 74; RESP 16; TEMP 97.4; O2SAT 96
[2017-01-10] MEDS: oxyCODONE/ACETAMINOPHEN 5 MG/325 MG TAB PO PRN ×2 (01:19→10:36)
[2017-01-10] MEDS: ONDANSETRON HCL 4 MG/2 ML VIAL IVP PRN ×4 (01:45→18:42)
[2017-01-10 04:35] VITALS: BP 145/76; PULSE 86; RESP 16; TEMP 97.7; O2SAT 96
[2017-01-10] MEDS: METOCLOPRAMIDE HCL 10 MG TAB PO SCH ×4 (06:24→20:36)
[2017-01-10] MEDS: ACETAMINOPHEN 325 MG TAB PO PRN (06:25)
[2017-01-10 08:00] VITALS: BP 122/69; PULSE 73; PULSE 78; RESP 18; TEMP 97.9; O2SAT 96
[2017-01-10 08:54] LABS: AUTOMATED NEUTROPHIL # 11.4 TH/MM3 (1.8-7.7); BASOPHIL # 0.1 TH/MM3 (0-0.2); BASOPHIL % 0.6 % (0.0-2.0); EOSINOPHIL # 0.2 TH/MM3 (0-0.4); EOSINOPHIL % 1.5 % (0.0-4.0); HEMATOCRIT 29.5 % (35.0-46.0); LYMPHOCYTE # 0.7 TH/MM3 (1.0-4.8); MEAN CELL VOLUME 73.5 FL (80.0-100.0); MEAN CORPUSCULAR HEMOGLOBIN 22.8 PG (27.0-34.0); MONO % 6.5 % (0.0-8.0); NEUT % 86.4 % (16.0-70.0); PLATELET COUNT 128 TH/MM3 (150-450); RED BLOOD COUNT 4.02 MIL/MM3 (4.00-5.30); RED CELL DISTRIBUTION WIDTH 24.9 % (11.6-17.2); WHITE BLOOD COUNT 13.2 TH/MM3 (4.0-11.0)
[2017-01-10 09:06] LABS: ANION GAP 16 MEQ/L (5-15); AST (GOT) 6 U/L (15-37); BICARBONATE 24.3 MEQ/L (21.0-32.0); BLOOD UREA NITROGEN 52 MG/DL (7-18); CHLORIDE 91 MEQ/L (98-107); GLOMERULAR FILTRATION RATE 3 ML/MIN (>89); SODIUM (NA) 131 MEQ/L (136-145)
[2017-01-10 09:10] LABS: ALKALINE PHOSPHATASE 68 U/L (45-117); ALT (GPT) 14 U/L (10-53); TOTAL BILIRUBIN ADULT 0.3 MG/DL (0.2-1.0)
[2017-01-10 09:40] LABS: HEMO FLAGS AUTO DIFF
[2017-01-10] MEDS: SODIUM CHLORIDE 0.9% FLUSH 10 ML FLUSH IV FLUSH SCH ×2 (09:43→20:36)
[2017-01-10] MEDS: VITAMIN B CMPLX/VITC/FOLIC AC CAP PO SCH (09:43)
[2017-01-10 09:44] LABS: HELMET CELLS OCC (NORMAL); OVALOCYTES 1+ (NORMAL); SCAN/DIFF AUTO DIFF CONFIRMED; TEARDROP RBCS 1+ (NORMAL)
[2017-01-10] MEDS: METOPROLOL TARTRATE 50 MG TAB PO SCH ×2 (09:44→20:36)
[2017-01-10] MEDS: PANTOPRAZOLE SOD 20 MG DELAYED RELEASE TAB PO SCH (09:44)
[2017-01-10] MEDS: DOCUSATE SODIUM 50 MG/SENNA 8.6 MG TAB PO SCH ×2 (09:44→20:36)
[2017-01-10] MEDS: amLODIPine BESYLATE 5 MG TAB PO SCH ×2 (09:44→20:36)
[2017-01-10 09:45] LABS: ACANTHOCYTES OCC (NORMAL); KERATOCYTES OCC (NORMAL)
[2017-01-10] MEDS: LISINOPRIL 5 MG TAB PO SCH ×2 (09:45→20:36)
[2017-01-10] MEDS: SEVELAMER CARBONATE 800 MG TAB PO SCH ×3 (09:45→19:14)
[2017-01-10] MEDS: SODIUM CHLORIDE 0.9% FLUSH 10 ML FLUSH IV FLUSH PRN ×2 (10:32→18:33)
--- NOTE | 2017-01-10 10:55 | HHI.PR ---
Subjective History of Present Illness Patient feel better. still have right side chest tube in still draining fluid..once fluid drained out need pleurodehesis . have non sustained venticular tachycardia cardiology input noted checked magnasium level...3.3 Review of Systems Constitutional Constitutional: Fatigue, Weakness Pulmonary Pulmonary Remarks right side chest tube in place. Vitals/Results Intake & Output 01/10/17 01/10/17 01/11/17 15:00 23:00 07:00 Output Total 946 ml Balance -946 ml Peritoneal Fluid 946 ml Vital Signs Vital Signs Date Time Temp Pulse Resp B/P (MAP) Pulse Ox O2 Delivery O2 Flow Rate FiO2 01/10/17 08:00 97.9 78 18 122/69 (86) 96 01/10/17 04:35 97.7 86 16 145/76 (99) 96 01/10/17 00:25 97.4 74 16 119/67 (84) 96 01/09/17 20:25 98.0 77 16 124/72 (89) 97 01/09/17 16:00 97.3 74 18 134/71 (92) 100 01/09/17 12:00 95.6 66 18 119/64 (82) 91 CBC/BMP: 01/10/17 0812 01/10/17 0812 Lab Results Laboratory Tests Test 01/10/17 08:12 White Blood Count 13.2 TH/MM3 Red Blood Count 4.02 MIL/MM3 Hemoglobin 9.1 GM/DL Hematocrit 29.5 % Mean Corpuscular Volume 73.5 FL Mean Corpuscular Hemoglobin 22.8 PG Mean Corpuscular Hemoglobin Concent 31.0 % Red Cell Distribution Width 24.9 % Platelet Count 128 TH/MM3 Mean Platelet Volume 9.4 FL Neutrophils (%) (Auto) 86.4 % Lymphocytes (%) (Auto) 5.0 % Monocytes (%) (Auto) 6.5 % Eosinophils (%) (Auto) 1.5 % Basophils (%) (Auto) 0.6 % Neutrophils # (Auto) 11.4 TH/MM3 Lymphocytes # (Auto) 0.7 TH/MM3 Monocytes # (Auto) 0.9 TH/MM3 Eosinophils # (Auto) 0.2 TH/MM3 Basophils # (Auto) 0.1 TH/MM3 CBC Comment AUTO DIFF Differential Comment AUTO DIFF CONFIRMED Tear Drop Cells 1+ Ovalocytes 1+ Helmet Cells OCC Acanthocytes OCC Keratocytes OCC Blood Urea Nitrogen 52 MG/DL Creatinine 17.55 MG/DL Random Glucose 100 MG/DL Total Protein 6.5 GM/DL Albumin 2.3 GM/DL Calcium Level 8.5 MG/DL Alkaline Phosphatase 68 U/L Aspartate Amino Transf (AST/SGOT) 6 U/L Alanine Aminotransferase (ALT/SGPT) 14 U/L Total Bilirubin 0.3 MG/DL Sodium Level 131 MEQ/L Potassium Level 5.0 MEQ/L Chloride Level 91 MEQ/L Carbon Dioxide Level 24.3 MEQ/L Anion Gap 16 MEQ/L Estimat Glomerular Filtration Rate 3 ML/MIN Physical Exam General General Appearance: No Acute Distress, Comfortable Eyes Eye Exam: Sclera White, Extraocular Movement Intact Throat Throat Exam: Oral Mucosa [place] & Moist, Oral Pharynx Normal Neck Neck Exam: Neck Supple, Trachea Midline Pulmonary Resp Exam: Clear Bilaterally, Breath Sounds Equal, No Distress, Decreased Bases Resp Remarks Right side chest tube in. Cardiology CV Exam: Regular Chest/Breast Chest/Breast Remarks right side chest tube in place. Gastrointestinal/Abdomen GI Exam: Soft, Non-Tender, Bowel Sounds Present Musculoskeletal MS Exam: Joints Intact Integumentary Skin Exam: Warm, Dry Extremeties Extremities Exam: Trace Edema Neurologic Neuro Exam: Alert, Awake, Oriented, No Focal Deficits Psychiatric Psych Exam: Appropriate Responses PUD Prophylasis PUD Prophylaxis: Protonix Assessment/Plan Assessment/Plan Assessment and Plan Assessment and Plan Large right sided pleural effusion s/p right side chest tube placement still draining fluid Fluid once fluid drained out need pleurodehesis analysis negative for malignant cell. s/p CT scan of chest and chest x- ray. shows moderate left pleural effusion and Large right Hydropneumothorax with complex loculated component as well as pulmonary consolidation and possible rounded Atelectasis / mass pulmonary managing the patient. S/P Right lung collapse s/p chest tube in place End-stage renal disease on peritoneal dialysis nephrology following Anemia of chronic disease Resting dyspnea secondary to the pleural effusion..better after chest tube placement. Hypertension on home medicine will monitor blood pressure.+ Norvasc to 5 mg PO BID.+ Metoprolol. Management Oncologist and Pig Sticker and pulmonary input noted non sustained venticular tachycardia consult cardiology on metoprolol Discussed with patient Check CBC with diff CMP in AM. Discussed Condition with: Patient Felipe Alvraado MD Jan 10, 2017 10:55
[2017-01-10 12:00] VITALS: BP 118/73; PULSE 75; RESP 18; TEMP 97.7; O2SAT 96
[2017-01-10 16:00] VITALS: BP 127/68; PULSE 73; RESP 18; TEMP 98.9; O2SAT 97
--- NOTE | 2017-01-10 16:07 | PD.CARD.PN ---
Subjective Subjective Remarks No CP or SOB, c/o abdominal discomfort Objective Medications Current Medications Medications (Trade) Dose Ordered Sig/Louie Route Start Time Stop Time Status Last Admin (Prinivil) 5 mg BID PO 12/27/16 21:00 01/10/17 09:45 (Renvela) 1,600 mg TIDAC PO 12/27/16 17:00 01/10/17 14:32 (Nephrocaps) 1 cap DAILY PO 12/28/16 09:00 01/10/17 09:43 (Rocaltrol) 0.5 mcg MoWeFr@17 PO 12/28/16 17:00 01/09/17 22:13 (NS Flush) 2 ml UNSCH PRN IV FLUSH 12/27/16 15:30 01/10/17 10:32 (NS Flush) 2 ml BID IV FLUSH 12/27/16 21:00 01/10/17 09:43 (Tylenol) 650 mg Q4H PRN PO 12/27/16 15:30 01/10/17 06:25 (Zofran Inj) 4 mg Q6H PRN IVP 12/27/16 15:30 01/10/17 10:32 (Narcan Inj) 0.4 mg UNSCH PRN IV 12/27/16 15:30 (Annie-Colace) 1 tab BID PO 12/27/16 21:00 01/08/17 20:14 (Milk Of Magnesia Liq) 30 ml Q12H PRN PO 12/27/16 15:30 (Senokot) 17.2 mg Q12H PRN PO 12/27/16 15:30 01/04/17 21:34 (Dulcolax Supp) 10 mg DAILY PRN RECTAL 12/27/16 15:30 (Lactulose Liq) 30 ml DAILY PRN PO 12/27/16 15:30 (Percocet 5-325 Mg) 1 tab Q6H PRN PO 12/28/16 18:00 01/10/17 10:36 (Heparin Inj) 1,000 units WITH DIALYSIS PRN XX 12/28/16 17:15 (NS Flush) 10 ml UNSCH PRN IV FLUSH 12/28/16 17:15 (Norvasc) 5 mg BID PO 12/29/16 21:00 01/10/17 09:44 (Lopressor) 50 mg BID PO 01/09/17 09:00 01/10/17 09:44 (Protonix) 20 mg DAILY PO 01/10/17 09:00 01/10/17 09:44 (Reglan) 5 mg ACHS PO 01/10/17 07:00 01/10/17 15:49 Vital Signs / I&O Vital Signs Date Time Temp Pulse Resp B/P (MAP) Pulse Ox O2 Delivery O2 Flow Rate FiO2 01/10/17 12:00 97.7 75 18 118/73 (88) 96 01/10/17 10:36 Room Air 01/10/17 08:00 73 01/10/17 08:00 97.9 78 18 122/69 (86) 96 01/10/17 04:35 97.7 86 16 145/76 (99) 96 01/10/17 00:25 97.4 74 16 119/67 (84) 96 01/09/17 20:25 98.0 77 16 124/72 (89) 97 I/O 01/09/17 01/09/17 01/09/17 01/10/17 01/10/17 01/10/17 06:59 14:59 22:59 06:59 14:59 22:59 Intake Total 480 ml 480 ml 240 ml 120 ml Output Total 1149 ml 960 ml Balance 480 ml -669 ml 240 ml 120 ml -960 ml Intake Oral 480 ml 480 ml 240 ml 120 ml Chest Tube Drainage Total 120 ml 14 ml Peritoneal Fluid 1029 ml 946 ml # Voids 1 1 0 1 # Bowel Movements 0 1 0 1 Physical Exam GENERAL: IN NAD, CT in place SKIN: Warm and dry. HEAD: Normocephalic. EYES: No scleral icterus. No injection or drainage. NECK: Supple, trachea midline. No JVD or lymphadenopathy. CARDIOVASCULAR: Regular rate and rhythm without murmurs, gallops, or rubs. RESPIRATORY: Breath sounds equal bilaterally. No accessory muscle use. GASTROINTESTINAL: Abdomen soft, non-tender, nondistended. MUSCULOSKELETAL: No cyanosis, or edema. Laboratory Laboratory Tests Test 01/10/17 08:12 White Blood Count 13.2 TH/MM3 Red Blood Count 4.02 MIL/MM3 Hemoglobin 9.1 GM/DL Hematocrit 29.5 % Mean Corpuscular Volume 73.5 FL Mean Corpuscular Hemoglobin 22.8 PG Mean Corpuscular Hemoglobin Concent 31.0 % Red Cell Distribution Width 24.9 % Platelet Count 128 TH/MM3 Mean Platelet Volume 9.4 FL Neutrophils (%) (Auto) 86.4 % Lymphocytes (%) (Auto) 5.0 % Monocytes (%) (Auto) 6.5 % Eosinophils (%) (Auto) 1.5 % Basophils (%) (Auto) 0.6 % Neutrophils # (Auto) 11.4 TH/MM3 Lymphocytes # (Auto) 0.7 TH/MM3 Monocytes # (Auto) 0.9 TH/MM3 Eosinophils # (Auto) 0.2 TH/MM3 Basophils # (Auto) 0.1 TH/MM3 CBC Comment AUTO DIFF Differential Comment AUTO DIFF CONFIRMED Tear Drop Cells 1+ Ovalocytes 1+ Helmet Cells OCC Acanthocytes OCC Keratocytes OCC Blood Urea Nitrogen 52 MG/DL Creatinine 17.55 MG/DL Random Glucose 100 MG/DL Total Protein 6.5 GM/DL Albumin 2.3 GM/DL Calcium Level 8.5 MG/DL Alkaline Phosphatase 68 U/L Aspartate Amino Transf (AST/SGOT) 6 U/L Alanine Aminotransferase (ALT/SGPT) 14 U/L Total Bilirubin 0.3 MG/DL Sodium Level 131 MEQ/L Potassium Level 5.0 MEQ/L Chloride Level 91 MEQ/L Carbon Dioxide Level 24.3 MEQ/L Anion Gap 16 MEQ/L Estimat Glomerular Filtration Rate 3 ML/MIN Imaging Last Impressions Chest X-Ray 01/08/17 0600 Signed Impressions: Service Date/Time: Sunday, January 08, 2017 02:45 - CONCLUSION: Persistent dense infiltrate throughout the right lung with a chest tube in good position overlying the right hemidiaphragm. The cardiac silhouette is widened. Ralph Quintanilla MD Chest Tube Insertion 12/28/16 0000 Signed Impressions: Service Date/Time: Wednesday, December 28, 2016 10:05 - CONCLUSION: Uncomplicated chest tube placement as above. The output will need to be monitored for several days to evaluate the volume of output. Consideration can be made to pleurodesis if the output is sufficient. Lawrence Taylor Jr., MD Assessment and Plan Problem List: (1) Wide-complex tachycardia ICD Codes: I47.2 - Ventricular tachycardia (2) Pleural effusion, right ICD Codes: J90 - Pleural effusion, not elsewhere classified Status: Acute (3) ESRD on peritoneal dialysis ICD Codes: N18.6 - End stage renal disease; Z99.2 - Dependence on renal dialysis Status: Acute (4) Anemia of chronic kidney failure ICD Codes: N18.9 - Chronic kidney disease, unspecified; D63.1 - Anemia in chronic kidney disease Status: Acute (5) Hypertension ICD Codes: I10 - Essential (primary) hypertension Status: Acute (6) Sinus tachycardia ICD Codes: R00.0 - Tachycardia, unspecified Status: Acute Assessment and Plan Stable from cardiac standpoint. Rhythm stable, no recurrent WCT. Continue beta ivis. Increase activity as tolerated. Continue monitoring on telemetry. Problem Qualifiers (1) Anemia of chronic kidney failure: Flora Reyna MD Jan 10, 2017 16:07
--- NOTE | 2017-01-10 16:19 | HHI.NPPN ---
Subjective History of Present Illness 56-year-old female with past medical history of hypertension, chronic anemia, history of breast cancer, end-stage renal disease on peritoneal dialysis, history of gastroesophageal reflux disease, history of GI bleeding came to the hospital referred by Dr. Maehr her oncologist. The patient has this cough going on for the last five or six months and she had a chest CT done as an outpatient which showed that she has some pleural effusion and she was referred by her oncologist, Dr. Maher, to go to the hospital for possible thoracentesis. Additional Remarks Patient is alert, still has mild abd. pain, with nausea. Review of Systems General Constitutional: Fatigue Respiratory Lungs: Cough Cardiovascular Cardiac: BACON Objective Data Data 01/10/17 01/11/17 19:00 07:00 Output Total 960 ml Balance -960 ml Chest Tube Drainage Total 14 ml Peritoneal Fluid 946 ml Vital Signs Date Time Temp Pulse Resp B/P (MAP) Pulse Ox O2 Delivery O2 Flow Rate FiO2 01/10/17 12:00 97.7 75 18 118/73 (88) 96 01/10/17 10:36 Room Air 01/10/17 08:00 73 01/10/17 08:00 97.9 78 18 122/69 (86) 96 01/10/17 04:35 97.7 86 16 145/76 (99) 96 01/10/17 00:25 97.4 74 16 119/67 (84) 96 01/09/17 20:25 98.0 77 16 124/72 (89) 97 -: 01/10/17 0812 01/10/17 0812 Physical Exam General Appearance: No Acute Distress, Comfortable Eyes Eye Exam: Sclera White, Extraocular Movement Intact Throat Throat Exam: Oral Mucosa [place] & Moist, Oral Pharynx Normal Neck Neck Exam: Neck Supple, Trachea Midline Pulmonary Resp Exam: Clear Bilaterally, Breath Sounds Equal, No Distress, Decreased Bases Cardiology CV Exam: Regular Gastrointestinal/Abdomen GI Exam: Soft, Non-Tender, Bowel Sounds Present Musculoskeletal MS Exam: Joints Intact Integumentary Skin Exam: Warm, Dry Extremeties Extremities Exam: Trace Edema Neurologic Neuro Exam: Alert, Awake, Oriented, No Focal Deficits Psychiatric Psych Exam: Appropriate Responses PUD Prophylasis PUD Prophylaxis: Protonix Assessment/Plan Assessment Summary: Anemia of CKD, Hypertension, End Stage Renal Disease Problem List: (1) Pleural effusion, right ICD Codes: J90 - Pleural effusion, not elsewhere classified Status: Acute (2) Sinus tachycardia ICD Codes: R00.0 - Tachycardia, unspecified Status: Acute (3) Hypertension ICD Codes: I10 - Essential (primary) hypertension Status: Acute (4) Anemia of chronic kidney failure ICD Codes: N18.9 - Chronic kidney disease, unspecified; D63.1 - Anemia in chronic kidney disease Status: Acute (5) ESRD on peritoneal dialysis ICD Codes: N18.6 - End stage renal disease; Z99.2 - Dependence on renal dialysis Status: Acute Plan Continues on PD, ongoing high creatinine. 946 ml PD prescription adjusted , increase volume and time. Right-sided chest tube. Pulmonary following. BP better On Percocet Hgb. is stable. Creatinine is increasing again. CT has decrease drainage. Has abd. pain, mild, and PD fluid is clear. Increase PD fluid total to 12 liters as Creatinine increasing. Problem Qualifiers (1) Anemia of chronic kidney failure: Brina Ernst MD Jan 10, 2017 16:19
[2017-01-10] MEDS: ACETAMINOPHEN/HYDROcodone 325 MG/10 MG TAB PO PRN (18:30)
[2017-01-10 19:34] VITALS: BP 109/74; PULSE 86; RESP 18; TEMP 99.1; O2SAT 96
--- NOTE | 2017-01-10 20:12 | HHI.PR ---
Subjective Remarks 56 YOAA female with ESRD on PD, pl eff, ca breast Had right chest tube placed No CP no Fever No SOB Pl fluid transudate No new complaint Objective Vital Signs Vital Signs Date Time Temp Pulse Resp B/P (MAP) Pulse Ox O2 Delivery O2 Flow Rate FiO2 01/10/17 16:00 98.9 73 18 127/68 (87) 97 01/10/17 12:00 97.7 75 18 118/73 (88) 96 01/10/17 10:36 Room Air 01/10/17 08:00 73 01/10/17 08:00 97.9 78 18 122/69 (86) 96 01/10/17 04:35 97.7 86 16 145/76 (99) 96 01/10/17 00:25 97.4 74 16 119/67 (84) 96 01/09/17 20:25 98.0 77 16 124/72 (89) 97 I/O 01/09/17 01/09/17 01/09/17 01/10/17 01/10/17 01/10/17 07:00 15:00 23:00 07:00 15:00 23:00 Intake Total 480 ml 480 ml 240 ml 120 ml 480 ml Output Total 1149 ml 960 ml Balance 480 ml -669 ml 240 ml 120 ml -480 ml Intake Oral 480 ml 480 ml 240 ml 120 ml 480 ml Chest Tube Drainage Total 120 ml 14 ml Peritoneal Fluid 1029 ml 946 ml # Voids 1 1 0 1 0 # Bowel Movements 0 1 0 1 0 Result Diagram: 01/10/17 0812 01/10/17 0812 Objective Remarks GENERAL: MBMN AA female,NAD SKIN: Warm and dry. HEAD: Normocephalic. EYES: No scleral icterus. No injection or drainage. NECK: Supple, trachea midline. No JVD or lymphadenopathy. CARDIOVASCULAR: Regular rate and rhythm without murmurs, gallops, or rubs. RESPIRATORY: Breath sounds equal bilaterally. No accessory muscle use. Right chest tube draining GASTROINTESTINAL: Abdomen soft, non-tender, nondistended. PD Cathetor MUSCULOSKELETAL: No cyanosis, or edema. BACK: Nontender without obvious deformity. No CVA tenderness. A/P Assessment and Plan Right pleural effusion S/P Chest tube placement ESRD on PD Atelactesis HTN GERD H/O Ca breast PLAN: Chest tube to suction Once pl fluid drianage decreased, will need pleurodesis On PD Stable on RA Pleural fluid cytology Negative Monitor chest tube drainage Will need pleurodesis in Roel Forte MD Jan 10, 2017 20:12
[2017-01-10] MEDS ORDERED: ONDANSETRON HCL 4 MG/2 ML VIAL IVP PRN (21:00)
[2017-01-10] MEDS: SCOPOLAMINE 1.5 MG PATCH T-DERMAL SCH (21:37)
[2017-01-11] VITALS (9 sets, daily range): BP systolic 89–158; BP diastolic 57–90; PULSE 71–125; RESP 17–18; TEMP 97.5–100.6; O2SAT 95–99
[2017-01-11 05:02] LABS: AUTOMATED NEUTROPHIL # 14.5 TH/MM3 (1.8-7.7); BASOPHIL # 0.1 TH/MM3 (0-0.2); BASOPHIL % 0.6 % (0.0-2.0); EOSINOPHIL # 0.2 TH/MM3 (0-0.4); EOSINOPHIL % 1.3 % (0.0-4.0); HEMATOCRIT 32.2 % (35.0-46.0); LYMPH % 3.5 % (9.0-44.0); LYMPHOCYTE # 0.6 TH/MM3 (1.0-4.8); MEAN CELL VOLUME 73.5 FL (80.0-100.0); MEAN CORPUSCULAR HEMOGLOBIN 23.2 PG (27.0-34.0); MEAN CORPUSCULAR HGB CONC 31.6 % (32.0-36.0); MONO % 8.4 % (0.0-8.0); NEUT % 86.2 % (16.0-70.0); PLATELET COUNT 146 TH/MM3 (150-450); RED BLOOD COUNT 4.37 MIL/MM3 (4.00-5.30); RED CELL DISTRIBUTION WIDTH 24.7 % (11.6-17.2); WHITE BLOOD COUNT 16.8 TH/MM3 (4.0-11.0)
[2017-01-11 05:07] LABS: HEMO FLAGS AUTO DIFF
[2017-01-11 05:28] LABS: ANION GAP 18 MEQ/L (5-15); AST (GOT) 7 U/L (15-37); BLOOD UREA NITROGEN 51 MG/DL (7-18); CHLORIDE 89 MEQ/L (98-107); GLOMERULAR FILTRATION RATE 3 ML/MIN (>89); POTASSIUM 4.5 MEQ/L (3.5-5.1); SODIUM (NA) 132 MEQ/L (136-145)
[2017-01-11 05:31] LABS: ALKALINE PHOSPHATASE 71 U/L (45-117); ALT (GPT) 12 U/L (10-53); TOTAL BILIRUBIN ADULT 0.3 MG/DL (0.2-1.0)
[2017-01-11 06:22] LABS: OVALOCYTES 2+ (NORMAL)
[2017-01-11 06:23] LABS: KERATOCYTES 1+ (NORMAL); PLATELET ESTIMATE SMEAR LOW (NORMAL); PLATELET MORPHOLOGY NORMAL (NORMAL); SCAN/DIFF AUTO DIFF CONFIRMED; TARGET CELLS 1+ (NORMAL); TEARDROP RBCS 1+ (NORMAL)
[2017-01-11] MEDS: METOCLOPRAMIDE HCL 10 MG TAB PO SCH ×4 (06:41→21:08)
[2017-01-11] MEDS: DOCUSATE SODIUM 50 MG/SENNA 8.6 MG TAB PO SCH ×2 (09:00→21:07)
[2017-01-11] MEDS: SODIUM CHLORIDE 0.9% FLUSH 10 ML FLUSH IV FLUSH SCH ×2 (09:00→21:14)
[2017-01-11] MEDS: LISINOPRIL 5 MG TAB PO SCH ×2 (09:01→21:00)
[2017-01-11] MEDS: PANTOPRAZOLE SOD 20 MG DELAYED RELEASE TAB PO SCH (09:01)
[2017-01-11] MEDS: amLODIPine BESYLATE 5 MG TAB PO SCH ×2 (09:01→21:00)
[2017-01-11] MEDS: VITAMIN B CMPLX/VITC/FOLIC AC CAP PO SCH (09:01)
[2017-01-11] MEDS: SEVELAMER CARBONATE 800 MG TAB PO SCH ×3 (09:02→17:52)
[2017-01-11] MEDS: METOPROLOL TARTRATE 50 MG TAB PO SCH ×2 (09:02→21:08)
--- NOTE | 2017-01-11 09:25 | HHI.PR ---
Subjective History of Present Illness Patient feel better. still have right side chest tube in still draining fluid..once fluid drained out need pleurodehesis d/w Dr Calle d/w NILAY Stacy at bed side. Review of Systems Constitutional Constitutional: Fatigue, Weakness Pulmonary Pulmonary Remarks right side chest tube in place. Vitals/Results Intake & Output 01/11/17 01/11/17 01/12/17 15:00 23:00 07:00 Output Total 862 ml Balance -862 ml Peritoneal Fluid 862 ml Vital Signs Vital Signs Date Time Temp Pulse Resp B/P (MAP) Pulse Ox O2 Delivery O2 Flow Rate FiO2 01/11/17 04:00 100.6 120 17 107/67 (80) 99 01/11/17 00:26 98.7 84 17 118/72 (87) 98 01/10/17 19:34 99.1 86 18 109/74 (86) 96 01/10/17 16:00 98.9 73 18 127/68 (87) 97 01/10/17 12:00 97.7 75 18 118/73 (88) 96 01/10/17 10:36 Room Air CBC/BMP: 01/11/17 0407 01/11/17 0407 Lab Results Laboratory Tests Test 01/11/17 04:07 White Blood Count 16.8 TH/MM3 Red Blood Count 4.37 MIL/MM3 Hemoglobin 10.2 GM/DL Hematocrit 32.2 % Mean Corpuscular Volume 73.5 FL Mean Corpuscular Hemoglobin 23.2 PG Mean Corpuscular Hemoglobin Concent 31.6 % Red Cell Distribution Width 24.7 % Platelet Count 146 TH/MM3 Mean Platelet Volume 10.2 FL Neutrophils (%) (Auto) 86.2 % Lymphocytes (%) (Auto) 3.5 % Monocytes (%) (Auto) 8.4 % Eosinophils (%) (Auto) 1.3 % Basophils (%) (Auto) 0.6 % Neutrophils # (Auto) 14.5 TH/MM3 Lymphocytes # (Auto) 0.6 TH/MM3 Monocytes # (Auto) 1.4 TH/MM3 Eosinophils # (Auto) 0.2 TH/MM3 Basophils # (Auto) 0.1 TH/MM3 CBC Comment AUTO DIFF Differential Comment AUTO DIFF CONFIRMED Platelet Estimate LOW Platelet Morphology Comment NORMAL Target Cells 1+ Tear Drop Cells 1+ Ovalocytes 2+ Keratocytes 1+ Blood Urea Nitrogen 51 MG/DL Creatinine 17.38 MG/DL Random Glucose 107 MG/DL Total Protein 6.7 GM/DL Albumin 2.3 GM/DL Calcium Level 8.7 MG/DL Alkaline Phosphatase 71 U/L Aspartate Amino Transf (AST/SGOT) 7 U/L Alanine Aminotransferase (ALT/SGPT) 12 U/L Total Bilirubin 0.3 MG/DL Sodium Level 132 MEQ/L Potassium Level 4.5 MEQ/L Chloride Level 89 MEQ/L Carbon Dioxide Level 25.0 MEQ/L Anion Gap 18 MEQ/L Estimat Glomerular Filtration Rate 3 ML/MIN Physical Exam General General Appearance: No Acute Distress, Comfortable Eyes Eye Exam: Sclera White, Extraocular Movement Intact Throat Throat Exam: Oral Mucosa [place] & Moist, Oral Pharynx Normal Neck Neck Exam: Neck Supple, Trachea Midline Pulmonary Resp Exam: Clear Bilaterally, Breath Sounds Equal, No Distress, Decreased Bases Resp Remarks Right side chest tube in. Cardiology CV Exam: Regular Chest/Breast Chest/Breast Remarks right side chest tube in place. Gastrointestinal/Abdomen GI Exam: Soft, Non-Tender, Bowel Sounds Present Musculoskeletal MS Exam: Joints Intact Integumentary Skin Exam: Warm, Dry Extremeties Extremities Exam: Trace Edema Neurologic Neuro Exam: Alert, Awake, Oriented, No Focal Deficits Psychiatric Psych Exam: Appropriate Responses PUD Prophylasis PUD Prophylaxis: Protonix Assessment/Plan Assessment/Plan Assessment and Plan Assessment and Plan Large right sided pleural effusion s/p right side chest tube placement still draining fluid Fluid once fluid drained out need pleurodehesis analysis negative for malignant cell. s/p CT scan of chest and chest x- ray. shows moderate left pleural effusion and Large right Hydropneumothorax with complex loculated component as well as pulmonary consolidation and possible rounded Atelectasis / mass pulmonary managing the patient. S/P Right lung collapse s/p chest tube in place End-stage renal disease on peritoneal dialysis nephrology following Anemia of chronic disease Resting dyspnea secondary to the pleural effusion..better after chest tube placement. Hypertension on home medicine will monitor blood pressure.+ Norvasc to 5 mg PO BID.+ Metoprolol. 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 Discussed Condition with: Patient Felipe Alvarado MD Jan 11, 2017 09:25
[2017-01-11] MEDS: ACETAMINOPHEN/HYDROcodone 325 MG/10 MG TAB PO PRN (09:39)
--- NOTE | 2017-01-11 11:39 | HHI.NPPN ---
Subjective History of Present Illness 56-year-old female with past medical history of hypertension, chronic anemia, history of breast cancer, end-stage renal disease on peritoneal dialysis, history of gastroesophageal reflux disease, history of GI bleeding came to the hospital referred by Dr. Maher her oncologist. The patient has this cough going on for the last five or six months and she had a chest CT done as an outpatient which showed that she has some pleural effusion and she was referred by her oncologist, Dr. Maher, to go to the hospital for possible thoracentesis. Additional Remarks Patient is alert, still has mild abd. pain, and nausea, PD fluid is clear. Review of Systems General Constitutional: Fatigue Respiratory Lungs: Cough Cardiovascular Cardiac: BACON Objective Data Data 01/11/17 01/12/17 18:59 06:59 Output Total 862 ml Balance -862 ml Peritoneal Fluid 862 ml Vital Signs Date Time Temp Pulse Resp B/P (MAP) Pulse Ox O2 Delivery O2 Flow Rate FiO2 01/11/17 08:00 100.6 119 18 101/57 (72) 95 01/11/17 04:00 100.6 120 17 107/67 (80) 99 01/11/17 00:26 98.7 84 17 118/72 (87) 98 01/10/17 19:34 99.1 86 18 109/74 (86) 96 01/10/17 16:00 98.9 73 18 127/68 (87) 97 01/10/17 12:00 97.7 75 18 118/73 (88) 96 -: 01/11/17 0407 01/11/17 0407 Physical Exam General Appearance: No Acute Distress, Comfortable Eyes Eye Exam: Sclera White, Extraocular Movement Intact Throat Throat Exam: Oral Mucosa [place] & Moist, Oral Pharynx Normal Neck Neck Exam: Neck Supple, Trachea Midline Pulmonary Resp Exam: Clear Bilaterally, Breath Sounds Equal, No Distress, Decreased Bases Cardiology CV Exam: Regular Gastrointestinal/Abdomen GI Exam: Soft, Non-Tender, Bowel Sounds Present Musculoskeletal MS Exam: Joints Intact Integumentary Skin Exam: Warm, Dry Extremeties Extremities Exam: Trace Edema Neurologic Neuro Exam: Alert, Awake, Oriented, No Focal Deficits Psychiatric Psych Exam: Appropriate Responses PUD Prophylasis PUD Prophylaxis: Protonix Assessment/Plan Assessment Summary: Anemia of CKD, Hypertension, End Stage Renal Disease Problem List: (1) Pleural effusion, right ICD Codes: J90 - Pleural effusion, not elsewhere classified Status: Acute (2) Sinus tachycardia ICD Codes: R00.0 - Tachycardia, unspecified Status: Acute (3) Hypertension ICD Codes: I10 - Essential (primary) hypertension Status: Acute (4) Anemia of chronic kidney failure ICD Codes: N18.9 - Chronic kidney disease, unspecified; D63.1 - Anemia in chronic kidney disease Status: Acute (5) ESRD on peritoneal dialysis ICD Codes: N18.6 - End stage renal disease; Z99.2 - Dependence on renal dialysis Status: Acute Plan Continues on PD, ongoing high creatinine. 946 ml PD prescription adjusted , increase volume and time. Right-sided chest tube. Pulmonary following. BP better On Percocet Hgb. is stable. Creatinine is increasing again. CT has decrease drainage. Has abd. pain, mild, and PD fluid is clear. Increase PD fluid total to 12 liters as Creatinine increasing. Pulmonary follow up. Problem Qualifiers (1) Hypertension: Qualified Codes: I10 - Essential (primary) hypertension (2) Anemia of chronic kidney failure: Brina Ernst MD Jan 11, 2017 11:39
--- NOTE | 2017-01-11 16:49 | PD.CARD.PN ---
Subjective Subjective Remarks No CP, SOB, or abdominal pain, CT still in place Objective Medications Active Medications Miscellaneous Information 1 Q3D T-DERMAL; Start 01/13/17 at 21:00 Ondansetron HCl (Zofran Inj) 4 mg Q4H PRN IVP Last administered on 01/10/17 22 :01; Admin Dose 4 MG; Start 01/10/17 at 21:00 Scopolamine (Transderm-Scop 1.5 Mg Patch.72 Hr) 1 patch Q3D T-DERMAL Last administered on 01/10/17 21:37; Admin Dose 1 PATCH; Start 01/10/17 at 21:00 Vital Signs / I&O Vital Signs Date Time Temp Pulse Resp B/P (MAP) Pulse Ox O2 Delivery O2 Flow Rate FiO2 01/11/17 08:00 100.6 119 18 101/57 (72) 95 01/11/17 04:00 100.6 120 17 107/67 (80) 99 01/11/17 00:26 98.7 84 17 118/72 (87) 98 01/10/17 19:34 99.1 86 18 109/74 (86) 96 I/O 01/10/17 01/10/17 01/10/17 01/11/17 01/11/17 01/11/17 06:59 14:59 22:59 06:59 14:59 22:59 Intake Total 120 ml 480 ml 360 ml 240 ml Output Total 960 ml 156 ml 100 ml 862 ml Balance 120 ml -480 ml 204 ml 140 ml -862 ml Intake Oral 120 ml 480 ml 360 ml 240 ml Chest Tube Drainage Total 14 ml 156 ml 100 ml Peritoneal Fluid 946 ml 862 ml # Voids 1 0 1 1 # Bowel Movements 1 0 1 0 Physical Exam GENERAL: IN NAD, CT in place SKIN: Warm and dry. HEAD: Normocephalic. EYES: No scleral icterus. No injection or drainage. NECK: Supple, trachea midline. No JVD or lymphadenopathy. CARDIOVASCULAR: Regular rate and rhythm without murmurs, gallops, or rubs. RESPIRATORY: Breath sounds equal bilaterally. No accessory muscle use. GASTROINTESTINAL: Abdomen soft, non-tender, nondistended. MUSCULOSKELETAL: No cyanosis, or edema. Laboratory Laboratory Tests Test 01/11/17 04:07 White Blood Count 16.8 TH/MM3 Red Blood Count 4.37 MIL/MM3 Hemoglobin 10.2 GM/DL Hematocrit 32.2 % Mean Corpuscular Volume 73.5 FL Mean Corpuscular Hemoglobin 23.2 PG Mean Corpuscular Hemoglobin Concent 31.6 % Red Cell Distribution Width 24.7 % Platelet Count 146 TH/MM3 Mean Platelet Volume 10.2 FL Neutrophils (%) (Auto) 86.2 % Lymphocytes (%) (Auto) 3.5 % Monocytes (%) (Auto) 8.4 % Eosinophils (%) (Auto) 1.3 % Basophils (%) (Auto) 0.6 % Neutrophils # (Auto) 14.5 TH/MM3 Lymphocytes # (Auto) 0.6 TH/MM3 Monocytes # (Auto) 1.4 TH/MM3 Eosinophils # (Auto) 0.2 TH/MM3 Basophils # (Auto) 0.1 TH/MM3 CBC Comment AUTO DIFF Differential Comment AUTO DIFF CONFIRMED Platelet Estimate LOW Platelet Morphology Comment NORMAL Target Cells 1+ Tear Drop Cells 1+ Ovalocytes 2+ Keratocytes 1+ Blood Urea Nitrogen 51 MG/DL Creatinine 17.38 MG/DL Random Glucose 107 MG/DL Total Protein 6.7 GM/DL Albumin 2.3 GM/DL Calcium Level 8.7 MG/DL Alkaline Phosphatase 71 U/L Aspartate Amino Transf (AST/SGOT) 7 U/L Alanine Aminotransferase (ALT/SGPT) 12 U/L Total Bilirubin 0.3 MG/DL Sodium Level 132 MEQ/L Potassium Level 4.5 MEQ/L Chloride Level 89 MEQ/L Carbon Dioxide Level 25.0 MEQ/L Anion Gap 18 MEQ/L Estimat Glomerular Filtration Rate 3 ML/MIN Assessment and Plan Problem List: (1) Wide-complex tachycardia ICD Codes: I47.2 - Ventricular tachycardia (2) Pleural effusion, right ICD Codes: J90 - Pleural effusion, not elsewhere classified Status: Acute (3) ESRD on peritoneal dialysis ICD Codes: N18.6 - End stage renal disease; Z99.2 - Dependence on renal dialysis Status: Acute (4) Anemia of chronic kidney failure ICD Codes: N18.9 - Chronic kidney disease, unspecified; D63.1 - Anemia in chronic kidney disease Status: Acute (5) Hypertension ICD Codes: I10 - Essential (primary) hypertension Status: Acute (6) Sinus tachycardia ICD Codes: R00.0 - Tachycardia, unspecified Status: Acute Assessment and Plan No new cardiac issues. Stable from cardiac standpoint. Rhythm remains stable, no recurrent wide complex tachycardia. Continue beta ivis. Increase activity as tolerated, PT. Continue monitoring on telemetry. Problem Qualifiers (1) Anemia of chronic kidney failure: Flora Reyna MD Jan 11, 2017 16:49
[2017-01-11] MEDS: CALCITRIOL 0.25 MCG CAP PO SCH (17:52)
--- NOTE | 2017-01-11 19:30 | HHI.PR ---
Subjective Remarks 56 YOAA female with ESRD on PD, pl eff, ca breast Had right chest tube placed No CP no Fever No SOB Chest tube still draining Objective Vital Signs Vital Signs Date Time Temp Pulse Resp B/P (MAP) Pulse Ox O2 Delivery O2 Flow Rate FiO2 01/11/17 16:00 97.6 113 18 102/60 (74) 96 01/11/17 12:00 97.5 79 18 89/58 (68) 97 01/11/17 08:00 100.6 119 18 101/57 (72) 95 01/11/17 04:00 100.6 120 17 107/67 (80) 99 01/11/17 00:26 98.7 84 17 118/72 (87) 98 01/10/17 19:34 99.1 86 18 109/74 (86) 96 I/O 01/10/17 01/10/17 01/10/17 01/11/17 01/11/17 01/11/17 07:00 15:00 23:00 07:00 15:00 23:00 Intake Total 120 ml 480 ml 360 ml 240 ml 480 ml Output Total 960 ml 156 ml 100 ml 962 ml Balance 120 ml -480 ml 204 ml 140 ml -482 ml Intake Oral 120 ml 480 ml 360 ml 240 ml 480 ml Chest Tube Drainage Total 14 ml 156 ml 100 ml 100 ml Peritoneal Fluid 946 ml 862 ml # Voids 1 0 1 1 0 # Bowel Movements 1 0 1 0 0 Result Diagram: 01/11/1740601/11/17406 Objective Remarks GENERAL: MBMN AA female,NAD SKIN: Warm and dry. HEAD: Normocephalic. EYES: No scleral icterus. No injection or drainage. NECK: Supple, trachea midline. No JVD or lymphadenopathy. CARDIOVASCULAR: Regular rate and rhythm without murmurs, gallops, or rubs. RESPIRATORY: Breath sounds equal bilaterally. No accessory muscle use. Right chest tube draining GASTROINTESTINAL: Abdomen soft, non-tender, nondistended. PD Cathetor MUSCULOSKELETAL: No cyanosis, or edema. BACK: Nontender without obvious deformity. No CVA tenderness. A/P Assessment and Plan Right pleural effusion S/P Chest tube placement ESRD on PD Atelactesis HTN GERD H/O Ca breast PLAN: Chest tube to suction Once pl fluid drianage decreased, will need pleurodesis On PD Stable on RA Pleural fluid cytology Negative Monitor chest tube drainage Will need pleurodesisper [facility]CE[facility] [place]. Roel Calle MD Jan 11, 2017 19:29
[2017-01-12 00:30] VITALS: PULSE 114
[2017-01-12] MEDS: METOCLOPRAMIDE HCL 10 MG TAB PO SCH ×4 (06:30→20:35)
[2017-01-12 08:00] VITALS: BP 107/68; PULSE 119; RESP 18; TEMP 98.4; O2SAT 95
[2017-01-12] MEDS: SODIUM CHLORIDE 0.9% FLUSH 10 ML FLUSH IV FLUSH SCH ×2 (09:00→20:58)
[2017-01-12] MEDS: DOCUSATE SODIUM 50 MG/SENNA 8.6 MG TAB PO SCH ×2 (09:00→20:58)
[2017-01-12] MEDS: METOPROLOL TARTRATE 50 MG TAB PO SCH ×2 (09:03→20:57)
[2017-01-12] MEDS: VITAMIN B CMPLX/VITC/FOLIC AC CAP PO SCH (09:03)
[2017-01-12] MEDS: SEVELAMER CARBONATE 800 MG TAB PO SCH ×3 (09:03→19:33)
[2017-01-12] MEDS: amLODIPine BESYLATE 5 MG TAB PO SCH ×2 (09:03→20:57)
[2017-01-12] MEDS: LISINOPRIL 5 MG TAB PO SCH ×2 (09:04→20:57)
[2017-01-12] MEDS: PANTOPRAZOLE SOD 20 MG DELAYED RELEASE TAB PO SCH (09:04)
[2017-01-12 12:00] VITALS: BP 85/47; PULSE 77; RESP 18; TEMP 97.9; O2SAT 97
--- NOTE | 2017-01-12 12:49 | HHI.NPPN ---
Subjective History of Present Illness 56-year-old female with past medical history of hypertension, chronic anemia, history of breast cancer, end-stage renal disease on peritoneal dialysis, history of gastroesophageal reflux disease, history of GI bleeding came to the hospital referred by Dr. Maher her oncologist. The patient has this cough going on for the last five or six months and she had a chest CT done as an outpatient which showed that she has some pleural effusion and she was referred by her oncologist, Dr. Maher, to go to the hospital for possible thoracentesis. Additional Remarks Patient is alert, abd. pain and nausea improved, no SOB. Review of Systems General Constitutional: Fatigue Respiratory Lungs: Cough Cardiovascular Cardiac: BACON Objective Data Data 01/12/17 01/13/17 19:00 07:00 Output Total 777 ml Balance -777 ml Peritoneal Fluid 777 ml Vital Signs Date Time Temp Pulse Resp B/P (MAP) Pulse Ox O2 Delivery O2 Flow Rate FiO2 01/12/17 12:00 97.9 77 18 85/47 (60) 97 01/12/17 08:00 98.4 119 18 107/68 (81) 95 01/12/17 00:30 114 01/11/17 23:11 97.5 122 18 111/72 (85) 96 01/11/17 20:00 96 Room Air 01/11/17 20:00 123 01/11/17 19:15 99.0 125 18 106/64 (78) 96 01/11/17 16:00 97.6 113 18 102/60 (74) 96 -: 01/11/17 0407 01/11/17 0407 Physical Exam General Appearance: No Acute Distress, Comfortable Eyes Eye Exam: Sclera White, Extraocular Movement Intact Throat Throat Exam: Oral Mucosa [place] & Moist, Oral Pharynx Normal Neck Neck Exam: Neck Supple, Trachea Midline Pulmonary Resp Exam: Clear Bilaterally, Breath Sounds Equal, No Distress, Decreased Bases Cardiology CV Exam: Regular Gastrointestinal/Abdomen GI Exam: Soft, Non-Tender, Bowel Sounds Present Musculoskeletal MS Exam: Joints Intact Integumentary Skin Exam: Warm, Dry Extremeties Extremities Exam: Trace Edema Neurologic Neuro Exam: Alert, Awake, Oriented, No Focal Deficits Psychiatric Psych Exam: Appropriate Responses PUD Prophylasis PUD Prophylaxis: Protonix Assessment/Plan Assessment Summary: Anemia of CKD, Hypertension, End Stage Renal Disease Problem List: (1) Pleural effusion, right ICD Codes: J90 - Pleural effusion, not elsewhere classified Status: Acute (2) Sinus tachycardia ICD Codes: R00.0 - Tachycardia, unspecified Status: Acute (3) Hypertension ICD Codes: I10 - Essential (primary) hypertension Status: Acute (4) Anemia of chronic kidney failure ICD Codes: N18.9 - Chronic kidney disease, unspecified; D63.1 - Anemia in chronic kidney disease Status: Acute (5) ESRD on peritoneal dialysis ICD Codes: N18.6 - End stage renal disease; Z99.2 - Dependence on renal dialysis Status: Acute Plan Continues on PD, ongoing high creatinine. PD prescription adjusted , increase volume and time. Right-sided chest tube. Pulmonary following. BP better On Percocet Hgb. is stable. Creatinine is increasing again. CT has decrease drainage. Has abd. pain, mild, and PD fluid is clear. Increase PD fluid total to 12 liters as Creatinine increasing. Pulmonary follow up noted, will need pleurodesis. Problem Qualifiers (1) Hypertension: Qualified Codes: I10 - Essential (primary) hypertension (2) Anemia of chronic kidney failure: Brina Ernst MD Jan 12, 2017 12:49
[2017-01-12] MEDS ORDERED: EPOETIN ALFA 40,000 UNITS/ML VIAL SQ ONE (13:00)
--- NOTE | 2017-01-12 13:33 | PD.CARD.PN ---
Subjective Subjective Remarks No CP or SOB, abdominal discomfort improved, CT in place Objective Medications Active Medications Epoetin Antonio (Epogen Inj) 40,000 units ONCE ONCE SQ; Start 01/12/17 at 13:00; Stop 01/12/17 at 13:17; Status DC Miscellaneous Information 1 Q3D T-DERMAL; Start 01/13/17 at 21:00 Vital Signs / I&O Vital Signs Date Time Temp Pulse Resp B/P (MAP) Pulse Ox O2 Delivery O2 Flow Rate FiO2 01/12/17 12:00 97.9 77 18 85/47 (60) 97 01/12/17 08:00 98.4 119 18 107/68 (81) 95 01/12/17 00:30 114 01/11/17 23:11 97.5 122 18 111/72 (85) 96 01/11/17 20:00 96 Room Air 01/11/17 20:00 123 01/11/17 19:15 99.0 125 18 106/64 (78) 96 01/11/17 16:00 97.6 113 18 102/60 (74) 96 I/O 01/11/17 01/11/17 01/11/17 01/12/17 01/12/17 01/12/17 07:00 15:00 23:00 07:00 15:00 23:00 Intake Total 240 ml 480 ml 360 ml 240 ml Output Total 100 ml 962 ml 30 ml 0 ml 777 ml Balance 140 ml -482 ml 330 ml 240 ml -777 ml Intake Oral 240 ml 480 ml 360 ml 240 ml Chest Tube Drainage Total 100 ml 100 ml 30 ml 0 ml Peritoneal Fluid 862 ml 777 ml # Voids 1 0 1 1 # Bowel Movements 0 0 1 0 Physical Exam GENERAL: IN NAD, CT in place SKIN: Warm and dry. HEAD: Normocephalic. EYES: No scleral icterus. No injection or drainage. NECK: Supple, trachea midline. No JVD or lymphadenopathy. CARDIOVASCULAR: Regular rate and rhythm without murmurs, gallops, or rubs. RESPIRATORY: Breath sounds equal bilaterally. No accessory muscle use. GASTROINTESTINAL: Abdomen soft, non-tender, nondistended. MUSCULOSKELETAL: No cyanosis, or edema. Assessment and Plan Problem List: (1) Wide-complex tachycardia ICD Codes: I47.2 - Ventricular tachycardia (2) Pleural effusion, right ICD Codes: J90 - Pleural effusion, not elsewhere classified Status: Acute (3) ESRD on peritoneal dialysis ICD Codes: N18.6 - End stage renal disease; Z99.2 - Dependence on renal dialysis Status: Acute (4) Anemia of chronic kidney failure ICD Codes: N18.9 - Chronic kidney disease, unspecified; D63.1 - Anemia in chronic kidney disease Status: Acute (5) Hypertension ICD Codes: I10 - Essential (primary) hypertension Status: Acute (6) Sinus tachycardia ICD Codes: R00.0 - Tachycardia, unspecified Status: Acute Assessment and Plan Remains stable from cardiac standpoint. Rhythm remains stable, no recurrent wide complex tachycardia. Continue beta ivis. Increase activity as tolerated , PT. Continue monitoring on telemetry. Anticipate chest tube removal soon. Dr. Trevino will take over her cardiology care. Problem Qualifiers (1) Anemia of chronic kidney failure: (2) Hypertension: Qualified Codes: I10 - Essential (primary) hypertension Flora Reyna MD Jan 12, 2017 13:32
[2017-01-12] MEDS: ACETAMINOPHEN 325 MG TAB PO PRN (13:49)
[2017-01-12 16:00] VITALS: BP 82/50; PULSE 75; RESP 18; TEMP 96.5; O2SAT 100
--- NOTE | 2017-01-12 16:32 | HHI.PR ---
Subjective History of Present Illness Patient feel better. high creatinine nephrology following. still have right side chest tube in still draining fluid..once fluid drained out need pleurodehesis d/w Dr Calle d/w NILAY Stacy at bed side. Review of Systems Constitutional Constitutional: Fatigue, Weakness Pulmonary Pulmonary Remarks right side chest tube in place. Vitals/Results Intake & Output 01/12/17 01/12/17 01/13/17 14:59 22:59 06:59 Output Total 827 ml Balance -827 ml Chest Tube Drainage Total 50 ml Peritoneal Fluid 777 ml Vital Signs Vital Signs Date Time Temp Pulse Resp B/P (MAP) Pulse Ox O2 Delivery O2 Flow Rate FiO2 01/12/17 12:00 97.9 77 18 85/47 (60) 97 01/12/17 08:00 98.4 119 18 107/68 (81) 95 01/12/17 00:30 114 01/11/17 23:11 97.5 122 18 111/72 (85) 96 01/11/17 20:00 96 Room Air 01/11/17 20:00 123 01/11/17 19:15 99.0 125 18 106/64 (78) 96 CBC/BMP: 01/11/17 0407 01/11/17 0407 Physical Exam General General Appearance: No Acute Distress, Comfortable Eyes Eye Exam: Sclera White, Extraocular Movement Intact Throat Throat Exam: Oral Mucosa [place] & Moist, Oral Pharynx Normal Neck Neck Exam: Neck Supple, Trachea Midline Pulmonary Resp Exam: Clear Bilaterally, Breath Sounds Equal, No Distress, Decreased Bases Resp Remarks Right side chest tube in. Cardiology CV Exam: Regular Chest/Breast Chest/Breast Remarks right side chest tube in place. Gastrointestinal/Abdomen GI Exam: Soft, Non-Tender, Bowel Sounds Present Musculoskeletal MS Exam: Joints Intact Integumentary Skin Exam: Warm, Dry Extremeties Extremities Exam: Trace Edema Neurologic Neuro Exam: Alert, Awake, Oriented, No Focal Deficits Psychiatric Psych Exam: Appropriate Responses PUD Prophylasis PUD Prophylaxis: Protonix Assessment/Plan Assessment/Plan Assessment and Plan Assessment and Plan Large right sided pleural effusion s/p right side chest tube placement still draining fluid Fluid once fluid drained out need pleurodehesis analysis negative for malignant cell. s/p CT scan of chest and chest x- ray. shows moderate left pleural effusion and Large right Hydropneumothorax with complex loculated component as well as pulmonary consolidation and possible rounded Atelectasis / mass pulmonary managing the patient. S/P Right lung collapse s/p chest tube in place End-stage renal disease on peritoneal dialysis nephrology following Anemia of chronic disease Resting dyspnea secondary to the pleural effusion..better after chest tube placement. Hypertension on home medicine will monitor blood pressure.+ Norvasc to 5 mg PO BID.+ Metoprolol. 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 Felipe Alvarado MD Jan 12, 2017 16:32
--- NOTE | 2017-01-12 18:54 | HHI.PR ---
Subjective Remarks 56 YOAA female with ESRD on PD, pl eff, ca breast Had right chest tube placed No CP no Fever No SOB Chest tube still draining Pl fluid cr 16.5 consistant with PD fluid Objective Vital Signs Vital Signs Date Time Temp Pulse Resp B/P (MAP) Pulse Ox O2 Delivery O2 Flow Rate FiO2 01/12/17 16:00 96.5 75 18 82/50 (61) 100 01/12/17 12:00 97.9 77 18 85/47 (60) 97 01/12/17 08:00 98.4 119 18 107/68 (81) 95 01/12/17 00:30 114 01/11/17 23:11 97.5 122 18 111/72 (85) 96 01/11/17 20:00 96 Room Air 01/11/17 20:00 123 01/11/17 19:15 99.0 125 18 106/64 (78) 96 I/O 01/11/17 01/11/17 01/11/17 01/12/17 01/12/17 01/12/17 07:00 15:00 23:00 07:00 15:00 23:00 Intake Total 240 ml 480 ml 360 ml 240 ml 600 ml Output Total 100 ml 962 ml 30 ml 0 ml 827 ml Balance 140 ml -482 ml 330 ml 240 ml -227 ml Intake Oral 240 ml 480 ml 360 ml 240 ml 600 ml Chest Tube Drainage Total 100 ml 100 ml 30 ml 0 ml 50 ml Peritoneal Fluid 862 ml 777 ml # Voids 1 0 1 1 1 # Bowel Movements 0 0 1 0 0 Result Diagram: 01/11/1740601/11/17406 Objective Remarks GENERAL: MBMN AA female,NAD SKIN: Warm and dry. HEAD: Normocephalic. EYES: No scleral icterus. No injection or drainage. NECK: Supple, trachea midline. No JVD or lymphadenopathy. CARDIOVASCULAR: Regular rate and rhythm without murmurs, gallops, or rubs. RESPIRATORY: Breath sounds equal bilaterally. No accessory muscle use. Right chest tube draining GASTROINTESTINAL: Abdomen soft, non-tender, nondistended. PD Cathetor MUSCULOSKELETAL: No cyanosis, or edema. BACK: Nontender without obvious deformity. No CVA tenderness. A/P Assessment and Plan Right pleural effusion S/P Chest tube placement ESRD on PD Atelactesis HTN GERD H/O Ca breast PLAN: Chest tube to suction Once pl fluid drianage decreased, will need pleurodesis On PD Stable on RA Pleural fluid cytology Negative Monitor chest tube drainage DW Will need HD instead of PD Roel Calle MD Jan 12, 2017 18:54
[2017-01-12 20:02] VITALS: BP 131/80; PULSE 77; RESP 16; TEMP 97.7; O2SAT 98
[2017-01-13 00:05] VITALS: BP 93/52; PULSE 105; RESP 16; TEMP 98.9; O2SAT 97
[2017-01-13 04:05] VITALS: BP 105/61; PULSE 80; RESP 17; TEMP 98.5; O2SAT 97
[2017-01-13] MEDS: METOCLOPRAMIDE HCL 10 MG TAB PO SCH ×4 (06:08→23:01)
--- NOTE | 2017-01-13 07:56 | HHI.PR ---
Subjective History of Present Illness Patient same . high creatinine nephrology following. will be getting hemodialysis still have right side chest tube in still draining fluid..once fluid drained out need pleurodehesis Review of Systems Constitutional Constitutional: Fatigue, Weakness Pulmonary Pulmonary Remarks right side chest tube in place. Vitals/Results Vital Signs Vital Signs Date Time Temp Pulse Resp B/P (MAP) Pulse Ox O2 Delivery O2 Flow Rate FiO2 01/13/17 04:05 98.5 80 17 105/61 (76) 97 01/13/17 00:05 98.9 105 16 93/52 (66) 97 01/13/17 00:00 97 Room Air 01/12/17 21:00 Room Air 01/12/17 20:02 97.7 77 16 131/80 (97) 98 01/12/17 16:00 96.5 75 18 82/50 (61) 100 01/12/17 12:00 97.9 77 18 85/47 (60) 97 01/12/17 08:00 98.4 119 18 107/68 (81) 95 CBC/BMP: 01/11/17 0407 01/11/17 0407 Physical Exam General General Appearance: No Acute Distress, Comfortable Eyes Eye Exam: Sclera White, Extraocular Movement Intact Throat Throat Exam: Oral Mucosa [place] & Moist, Oral Pharynx Normal Neck Neck Exam: Neck Supple, Trachea Midline Pulmonary Resp Exam: Clear Bilaterally, Breath Sounds Equal, No Distress, Decreased Bases Resp Remarks Right side chest tube in. Cardiology CV Exam: Regular Chest/Breast Chest/Breast Remarks right side chest tube in place. Gastrointestinal/Abdomen GI Exam: Soft, Non-Tender, Bowel Sounds Present Musculoskeletal MS Exam: Joints Intact Integumentary Skin Exam: Warm, Dry Extremeties Extremities Exam: Trace Edema Neurologic Neuro Exam: Alert, Awake, Oriented, No Focal Deficits Psychiatric Psych Exam: Appropriate Responses PUD Prophylasis PUD Prophylaxis: Protonix Assessment/Plan Assessment/Plan Assessment and Plan Assessment and Plan Large right sided pleural effusion s/p right side chest tube placement still draining fluid Fluid once fluid drained out need pleurodehesis analysis negative for malignant cell. s/p CT scan of chest and chest x- ray. shows moderate left pleural effusion and Large right Hydropneumothorax with complex loculated component as well as pulmonary consolidation and possible rounded Atelectasis / mass pulmonary managing the patient. S/P Right lung collapse s/p chest tube in place End-stage renal disease on peritoneal dialysis nephrology following .. will be getting hemodialysis Anemia of chronic disease Resting dyspnea secondary to the pleural effusion..better after chest tube placement. Hypertension on home medicine will monitor blood pressure.+ Norvasc to 5 mg PO BID.+ Metoprolol. Oncologist and Talent Acquisition Administrator and pulmonary input noted Non sustained venticular tachycardia cardiology input noted on metoprolol Discussed with patient Check CBC with diff CMP in AM. Discussed Condition with: Patient Felipe Alvarado MD Jan 13, 2017 07:56
[2017-01-13 08:00] VITALS: BP 93/52; PULSE 80; RESP 18; TEMP 98.1; O2SAT 93
[2017-01-13] MEDS: SEVELAMER CARBONATE 800 MG TAB PO SCH ×3 (08:00→19:30)
[2017-01-13] MEDS: VITAMIN B CMPLX/VITC/FOLIC AC CAP PO SCH (08:01)
[2017-01-13] MEDS: DOCUSATE SODIUM 50 MG/SENNA 8.6 MG TAB PO SCH ×2 (08:01→23:00)
[2017-01-13] MEDS: SODIUM CHLORIDE 0.9% FLUSH 10 ML FLUSH IV FLUSH SCH ×2 (09:00→22:59)
[2017-01-13] MEDS: PANTOPRAZOLE SOD 20 MG DELAYED RELEASE TAB PO SCH (09:00)
[2017-01-13] MEDS: amLODIPine BESYLATE 5 MG TAB PO SCH (09:00)
[2017-01-13] MEDS: METOPROLOL TARTRATE 50 MG TAB PO SCH ×2 (09:00→23:00)
[2017-01-13] MEDS: LISINOPRIL 5 MG TAB PO SCH ×2 (09:00→23:01)
[2017-01-13 12:00] VITALS: BP 100/54; PULSE 77; RESP 18; TEMP 98; O2SAT 95
[2017-01-13] MEDS ORDERED: SODIUM CHLOR 0.9% 1000 ML INJ 1,000 ML IV PRN (12:38)
[2017-01-13] MEDS ORDERED: SODIUM CHLOR 0.9% 1000 ML INJ 1,000 ML OTHER PRN (12:38)
--- NOTE | 2017-01-13 12:41 | HHI.NPPN ---
Subjective History of Present Illness 56-year-old female with past medical history of hypertension, chronic anemia, history of breast cancer, end-stage renal disease on peritoneal dialysis, history of gastroesophageal reflux disease, history of GI bleeding came to the hospital referred by Dr. Maher her oncologist. The patient has this cough going on for the last five or six months and she had a chest CT done as an outpatient which showed that she has some pleural effusion and she was referred by her oncologist, Dr. Maher, to go to the hospital for possible thoracentesis. Additional Remarks Patient is alert, sitting, no SOB, still with chest tube. Review of Systems General Constitutional: Fatigue Respiratory Lungs: Cough Cardiovascular Cardiac: BACON Objective Data Data 01/13/17 01/14/17 19:00 07:00 Output Total 607 ml Balance -607 ml Peritoneal Fluid 607 ml Vital Signs Date Time Temp Pulse Resp B/P (MAP) Pulse Ox O2 Delivery O2 Flow Rate FiO2 01/13/17 08:00 98.1 80 18 93/52 (66) 93 01/13/17 04:05 98.5 80 17 105/61 (76) 97 01/13/17 00:05 98.9 105 16 93/52 (66) 97 01/13/17 00:00 97 Room Air 01/12/17 21:00 Room Air 01/12/17 20:02 97.7 77 16 131/80 (97) 98 01/12/17 16:00 96.5 75 18 82/50 (61) 100 -: 01/11/17 0407 01/11/17 0407 Physical Exam General Appearance: No Acute Distress, Comfortable Eyes Eye Exam: Sclera White, Extraocular Movement Intact Throat Throat Exam: Oral Mucosa [place] & Moist, Oral Pharynx Normal Neck Neck Exam: Neck Supple, Trachea Midline Pulmonary Resp Exam: Clear Bilaterally, Breath Sounds Equal, No Distress, Decreased Bases Cardiology CV Exam: Regular Gastrointestinal/Abdomen GI Exam: Soft, Non-Tender, Bowel Sounds Present Musculoskeletal MS Exam: Joints Intact Integumentary Skin Exam: Warm, Dry Extremeties Extremities Exam: Trace Edema Neurologic Neuro Exam: Alert, Awake, Oriented, No Focal Deficits Psychiatric Psych Exam: Appropriate Responses PUD Prophylasis PUD Prophylaxis: Protonix Assessment/Plan Assessment Summary: Anemia of CKD, Hypertension, End Stage Renal Disease Problem List: (1) Pleural effusion, right ICD Codes: J90 - Pleural effusion, not elsewhere classified Status: Acute (2) Sinus tachycardia ICD Codes: R00.0 - Tachycardia, unspecified Status: Acute (3) Hypertension ICD Codes: I10 - Essential (primary) hypertension Status: Acute (4) Anemia of chronic kidney failure ICD Codes: N18.9 - Chronic kidney disease, unspecified; D63.1 - Anemia in chronic kidney disease Status: Acute (5) ESRD on peritoneal dialysis ICD Codes: N18.6 - End stage renal disease; Z99.2 - Dependence on renal dialysis Status: Acute Plan Continues on PD, ongoing high creatinine. PD prescription adjusted , increase volume and time. Right-sided chest tube. Pulmonary following. BP better On Percocet Hgb. is stable. Creatinine is still elevated and increasing. D/W Dr. Calle yesterday. Will start HD and see if improve the Creatinine and Pleural effusion. Patient does not like to go for alf HD. Problem Qualifiers (1) Hypertension: Qualified Codes: I10 - Essential (primary) hypertension (2) Anemia of chronic kidney failure: Brina Ernst MD Jan 13, 2017 12:41
[2017-01-13] MEDS ORDERED: GENTAMICIN SULFATE (DIALYSIS USE ONLY) 20 MG/2 ML VIAL IV PRN (12:45)
[2017-01-13] MEDS ORDERED: ONDANSETRON HCL 4 MG/2 ML VIAL IV PRN (12:45)
[2017-01-13] MEDS ORDERED: SODIUM CHLORIDE 0.9% FLUSH 10 ML FLUSH IV FLUSH PRN (12:45)
[2017-01-13] MEDS ORDERED: diphenhydrAMINE HCL 25 MG CAP PO PRN (12:45)
[2017-01-13] MEDS ORDERED: NITROGLYCERIN 0.4 MG SL 25 TABS/BTL SL PRN (12:45)
[2017-01-13] MEDS ORDERED: cloNIDine HCL 0.1 MG TAB PO PRN (12:45)
[2017-01-13] MEDS ORDERED: ACETAMINOPHEN 325 MG TAB PO PRN (12:45)
[2017-01-13] MEDS ORDERED: ALBUMIN HUMAN 25% 25 GM/100 ML BAGP IV PRN (12:45)
[2017-01-13] MEDS ORDERED: MANNITOL 12.5 GM/50 ML VIAL IV PRN (12:45)
[2017-01-13] MEDS ORDERED: HEPARIN SODIUM - IV 10,000 UNITS/10 ML VIAL IVF PRN (12:45)
[2017-01-13] MEDS ORDERED: HEPARIN SODIUM - IV 10,000 UNITS/10 ML VIAL PRN (12:45)
--- NOTE | 2017-01-13 14:57 | PD.CARD.PN ---
Subjective Subjective Remarks Patient denies CP or increased SOB. Has runs of sinus tachycardia at night. Denies palpitations. BP low this morning. CT still to suction (Soraya Garrett) Objective Medications Current Medications Medications (Trade) Dose Ordered Sig/Louie Route Start Time Stop Time Status Last Admin (Prinivil) 5 mg BID PO 12/27/16 21:00 01/12/17 20:57 (Renvela) 1,600 mg TIDAC PO 12/27/16 17:00 01/13/17 12:00 (Nephrocaps) 1 cap DAILY PO 12/28/16 09:00 01/13/17 08:01 (Rocaltrol) 0.5 mcg MoWeFr@17 PO 12/28/16 17:00 01/11/17 17:52 (NS Flush) 2 ml UNSCH PRN IV FLUSH 12/27/16 15:30 01/10/17 18:33 (NS Flush) 2 ml BID IV FLUSH 12/27/16 21:00 01/13/17 09:00 (Tylenol) 650 mg Q4H PRN PO 12/27/16 15:30 01/12/17 13:49 (Narcan Inj) 0.4 mg UNSCH PRN IV 12/27/16 15:30 (Annie-Colace) 1 tab BID PO 12/27/16 21:00 01/13/17 08:01 (Milk Of Magnesia Liq) 30 ml Q12H PRN PO 12/27/16 15:30 (Senokot) 17.2 mg Q12H PRN PO 12/27/16 15:30 01/04/17 21:34 (Dulcolax Supp) 10 mg DAILY PRN RECTAL 12/27/16 15:30 (Lactulose Liq) 30 ml DAILY PRN PO 12/27/16 15:30 (Heparin Inj) 1,000 units WITH DIALYSIS PRN XX 12/28/16 17:15 (NS Flush) 10 ml UNSCH PRN IV FLUSH 12/28/16 17:15 (Lopressor) 50 mg BID PO 01/09/17 09:00 01/12/17 20:57 (Protonix) 20 mg DAILY PO 01/10/17 09:00 01/13/17 09:00 (Reglan) 5 mg ACHS PO 01/10/17 07:00 01/11/17 21:08 (Bear 10-325 Mg) 1 tab Q6H PRN PO 01/10/17 16:15 01/11/17 09:39 (Transderm-Scop 1.5 Mg Patch.72 Hr) 1 patch Q3D T-DERMAL 01/10/17 21:00 01/10/17 21:37 Miscellaneous Information 1 Q3D T-DERMAL 01/13/17 21:00 (Zofran Inj) 4 mg Q4H PRN IVP 01/10/17 21:00 01/10/17 22:01 Sodium Chloride 1,000 ml @ 0 mls/hr Q0M PRN OTHER 01/13/17 12:38 (Heparin Inj) 8,000 units UNSCH PRN IVF 01/13/17 12:45 Sodium Chloride 1,000 ml @ 200 mls/hr Q5H PRN IV 01/13/17 12:38 Sodium Chloride 1,000 ml @ 0 mls/hr Q0M PRN OTHER 01/13/17 12:38 (Mannitol Inj) 12.5 gm UNSCH PRN IV 01/13/17 12:45 (Albumin 25% Inj) 25 gm UNSCH PRN IV 01/13/17 12:45 (NS Flush) 5 ml UNSCH PRN IV FLUSH 01/13/17 12:45 (Heparin Inj) UNSCH PRN .XX 01/13/17 12:45 (Gentamicin (Dialysis) Inj) 20 mg UNSCH PRN IV 01/13/17 12:45 (Zofran Inj) 4 mg UNSCH PRN IV 01/13/17 12:45 (Tylenol) 650 mg UNSCH PRN PO 01/13/17 12:45 (Benadryl) 25 mg UNSCH PRN PO 01/13/17 12:45 (Nitrostat Sl) 0.4 mg UNSCH PRN SL 01/13/17 12:45 (Catapres) 0.1 mg UNSCH PRN PO 01/13/17 12:45 (Gelfoam 12 Mm/7 Mm Top) 1 foam UNSCH PRN TOP 01/13/17 12:45 Vital Signs / I&O Vital Signs Date Time Temp Pulse Resp B/P (MAP) Pulse Ox O2 Delivery O2 Flow Rate FiO2 01/13/17 12:00 98.0 77 18 100/54 (69) 95 01/13/17 08:00 98.1 80 18 93/52 (66) 93 01/13/17 04:05 98.5 80 17 105/61 (76) 97 01/13/17 00:05 98.9 105 16 93/52 (66) 97 01/13/17 00:00 97 Room Air 01/12/17 21:00 Room Air 01/12/17 20:02 97.7 77 16 131/80 (97) 98 01/12/17 16:00 96.5 75 18 82/50 (61) 100 I/O 01/12/17 01/12/17 01/12/17 01/13/17 01/13/17 01/13/17 06:59 14:59 22:59 06:59 14:59 22:59 Intake Total 240 ml 600 ml 720 ml 360 ml Output Total 0 ml 827 ml 10 ml 60 ml 607 ml Balance 240 ml -227 ml 710 ml 300 ml -607 ml Intake Oral 240 ml 600 ml 720 ml 360 ml Chest Tube Drainage Total 0 ml 50 ml 10 ml 60 ml Peritoneal Fluid 777 ml 607 ml # Voids 1 1 # Bowel Movements 0 0 Physical Exam GENERAL: Thin AA female SKIN: Warm and dry. HEAD: Normocephalic. EYES: No scleral icterus. No injection or drainage. NECK: Supple, trachea midline. CARDIOVASCULAR: Regular rate and rhythm without murmurs, gallops, or rubs. Left arm AV fistula RESPIRATORY: Breath sounds equal bilaterally. No accessory muscle use. Chest tube GASTROINTESTINAL: Abdomen soft, non-tender, nondistended. MUSCULOSKELETAL: No cyanosis, or edema. BACK: Nontender without obvious deformity. No CVA tenderness. (Soraya Garrett) Assessment and Plan Problem List: (1) Wide-complex tachycardia ICD Codes: I47.2 - Ventricular tachycardia (2) Pleural effusion, right ICD Codes: J90 - Pleural effusion, not elsewhere classified Status: Acute (3) ESRD on peritoneal dialysis ICD Codes: N18.6 - End stage renal disease; Z99.2 - Dependence on renal dialysis Status: Acute (4) Anemia of chronic kidney failure ICD Codes: N18.9 - Chronic kidney disease, unspecified; D63.1 - Anemia in chronic kidney disease Status: Acute (5) Hypertension ICD Codes: I10 - Essential (primary) hypertension Status: Acute (6) Sinus tachycardia ICD Codes: R00.0 - Tachycardia, unspecified Status: Acute Assessment and Plan Agree with stopping amlodipine May need to decrease DAVINA and increase BB. Will reevaluate tomorrow. Changing to HD Patient seen and evaluated by Dr Trevino who completed face to face encounter and physical exam and participated in evaluation and management. (Soraya Garrett) Assessment and Plan The exam, history, and the medical decision-making described in the above note were completed with the assistance of the mid-level provider. I reviewed and agree with the findings presented. I attest that I had a [id number] encounter with the patient on the same day, and personally performed and documented my assessment and findings in the medical record. Overall doing better no cp or sob (Isabella Trevino MD) Problem Qualifiers (1) Anemia of chronic kidney failure: (2) Hypertension: Qualified Codes: I10 - Essential (primary) hypertension Soraya Garrett Jan 13, 2017 14:57 Isabella Trevino MD Jan 15, 2017 14:33
--- NOTE | 2017-01-13 18:13 | HHI.PR ---
Subjective Remarks 56 YOAA female with ESRD on PD, pl eff, ca breast Had right chest tube placed No CP no Fever No SOB Chest tube still draining Pl fluid cr 16.5 consistant with PD fluid Objective Vital Signs Vital Signs Date Time Temp Pulse Resp B/P (MAP) Pulse Ox O2 Delivery O2 Flow Rate FiO2 01/13/17 12:00 98.0 77 18 100/54 (69) 95 01/13/17 08:00 98.1 80 18 93/52 (66) 93 01/13/17 04:05 98.5 80 17 105/61 (76) 97 01/13/17 00:05 98.9 105 16 93/52 (66) 97 01/13/17 00:00 97 Room Air 01/12/17 21:00 Room Air 01/12/17 20:02 97.7 77 16 131/80 (97) 98 I/O 01/12/17 01/12/17 01/12/17 01/13/17 01/13/17 01/13/17 07:00 15:00 23:00 07:00 15:00 23:00 Intake Total 240 ml 600 ml 720 ml 360 ml Output Total 0 ml 827 ml 10 ml 60 ml 607 ml 1000 ml Balance 240 ml -227 ml 710 ml 300 ml -607 ml -1000 ml Intake Oral 240 ml 600 ml 720 ml 360 ml Chest Tube Drainage Total 0 ml 50 ml 10 ml 60 ml Peritoneal Fluid 777 ml 607 ml Hemodialysis 1000 ml # Voids 1 1 # Bowel Movements 0 0 Result Diagram: 01/11/1740601/11/17406 Objective Remarks GENERAL: MBMN AA female,NAD SKIN: Warm and dry. HEAD: Normocephalic. EYES: No scleral icterus. No injection or drainage. NECK: Supple, trachea midline. No JVD or lymphadenopathy. CARDIOVASCULAR: Regular rate and rhythm without murmurs, gallops, or rubs. RESPIRATORY: Breath sounds equal bilaterally. No accessory muscle use. Right chest tube draining GASTROINTESTINAL: Abdomen soft, non-tender, nondistended. PD Cathetor MUSCULOSKELETAL: No cyanosis, or edema. BACK: Nontender without obvious deformity. No CVA tenderness. A/P Assessment and Plan Right pleural effusion S/P Chest tube placement ESRD on PD Atelactesis HTN GERD H/O Ca breast PLAN: Chest tube to suction Once pl fluid drianage decreased, will need pleurodesis On PD Stable on RA Pleural fluid cytology Negative Monitor chest tube drainage DW Will need HD instead of PD covering over weekend. Roel Calle MD Jan 13, 2017 18:13
[2017-01-13] MEDS: CALCITRIOL 0.25 MCG CAP PO SCH (19:31)
[2017-01-13] MEDS: ACETAMINOPHEN 325 MG TAB PO PRN (19:33)
[2017-01-13 19:50] VITALS: BP 115/64; PULSE 84; RESP 16; TEMP 98.9; O2SAT 97
[2017-01-13] MEDS: REMOVE OLD SCOPOLAMINE PATCH T-DERMAL SCH (23:01)
[2017-01-13] MEDS: SCOPOLAMINE 1.5 MG PATCH T-DERMAL SCH (23:02)
[2017-01-14] VITALS (7 sets, daily range): BP systolic 93–120; BP diastolic 51–62; PULSE 72–87; RESP 16–18; TEMP 96.3–98.8; O2SAT 95–100
[2017-01-14 06:52] LABS: AUTOMATED NEUTROPHIL # 6.7 TH/MM3 (1.8-7.7); BASOPHIL # 0.1 TH/MM3 (0-0.2); BASOPHIL % 1.3 % (0.0-2.0); EOSINOPHIL # 0.3 TH/MM3 (0-0.4); EOSINOPHIL % 3.4 % (0.0-4.0); LYMPH % 6.7 % (9.0-44.0); LYMPHOCYTE # 0.6 TH/MM3 (1.0-4.8); MEAN CELL VOLUME 74.2 FL (80.0-100.0); MONO % 11.6 % (0.0-8.0); PLATELET COUNT 258 TH/MM3 (150-450); RED BLOOD COUNT 4.04 MIL/MM3 (4.00-5.30); RED CELL DISTRIBUTION WIDTH 24.4 % (11.6-17.2); WHITE BLOOD COUNT 8.7 TH/MM3 (4.0-11.0)
[2017-01-14] MEDS: METOCLOPRAMIDE HCL 10 MG TAB PO SCH ×4 (07:00→20:48)
[2017-01-14 07:06] LABS: HEMO FLAGS AUTO DIFF
[2017-01-14 07:22] LABS: ALKALINE PHOSPHATASE 139 U/L (45-117); ALT (GPT) 32 U/L (10-53); ANION GAP 6 MEQ/L (5-15); AST (GOT) 47 U/L (15-37); BICARBONATE 31.8 MEQ/L (21.0-32.0); BLOOD UREA NITROGEN 29 MG/DL (7-18); CHLORIDE 95 MEQ/L (98-107); GLOMERULAR FILTRATION RATE 5 ML/MIN (>89); SODIUM (NA) 133 MEQ/L (136-145); TOTAL BILIRUBIN ADULT 0.3 MG/DL (0.2-1.0)
[2017-01-14 07:25] LABS: POTASSIUM 4.9 MEQ/L (3.5-5.1)
[2017-01-14 08:52] LABS: KERATOCYTES 1+ (NORMAL); OVALOCYTES 1+ (NORMAL); SCAN/DIFF AUTO DIFF CONFIRMED; TEARDROP RBCS 1+ (NORMAL)
[2017-01-14] MEDS: SODIUM CHLORIDE 0.9% FLUSH 10 ML FLUSH IV FLUSH SCH ×2 (09:06→20:48)
[2017-01-14] MEDS: SEVELAMER CARBONATE 800 MG TAB PO SCH ×4 (09:07→17:36)
[2017-01-14] MEDS: PANTOPRAZOLE SOD 20 MG DELAYED RELEASE TAB PO SCH (09:07)
[2017-01-14] MEDS: LISINOPRIL 5 MG TAB PO SCH ×2 (09:08→20:48)
[2017-01-14] MEDS: DOCUSATE SODIUM 50 MG/SENNA 8.6 MG TAB PO SCH ×2 (09:08→20:48)
[2017-01-14] MEDS: VITAMIN B CMPLX/VITC/FOLIC AC CAP PO SCH (09:08)
[2017-01-14] MEDS: METOPROLOL TARTRATE 50 MG TAB PO SCH ×2 (09:09→20:47)
--- NOTE | 2017-01-14 09:37 | HHI.NPPN ---
Subjective History of Present Illness 56-year-old female with past medical history of hypertension, chronic anemia, history of breast cancer, end-stage renal disease on peritoneal dialysis, history of gastroesophageal reflux disease, history of GI bleeding came to the hospital referred by Dr. Maher her oncologist. The patient has this cough going on for the last five or six months and she had a chest CT done as an outpatient which showed that she has some pleural effusion and she was referred by her oncologist, Dr. Maher, to go to the hospital for possible thoracentesis. Additional Remarks Patient is alert, now starting HD, no SOB, no chest pain. Review of Systems General Constitutional: Fatigue Respiratory Lungs: Cough Cardiovascular Cardiac: BACON Objective Data Data Vital Signs Date Time Temp Pulse Resp B/P (MAP) Pulse Ox O2 Delivery O2 Flow Rate FiO2 01/14/17 09:08 Room Air 01/14/17 08:00 98.6 84 18 114/61 (78) 95 01/14/17 03:45 98.1 87 16 115/62 (79) 99 01/14/17 00:00 98.1 81 16 93/51 (65) 99 01/13/17 19:50 98.9 84 16 115/64 (81) 97 01/13/17 12:00 98.0 77 18 100/54 (69) 95 -: 01/14/17 0615 01/14/17 0615 Physical Exam General Appearance: No Acute Distress, Comfortable Eyes Eye Exam: Sclera White, Extraocular Movement Intact Throat Throat Exam: Oral Mucosa [place] & Moist, Oral Pharynx Normal Neck Neck Exam: Neck Supple, Trachea Midline Pulmonary Resp Exam: Clear Bilaterally, Breath Sounds Equal, No Distress, Decreased Bases Cardiology CV Exam: Regular Gastrointestinal/Abdomen GI Exam: Soft, Non-Tender, Bowel Sounds Present Musculoskeletal MS Exam: Joints Intact Integumentary Skin Exam: Warm, Dry Extremeties Extremities Exam: Trace Edema Neurologic Neuro Exam: Alert, Awake, Oriented, No Focal Deficits Psychiatric Psych Exam: Appropriate Responses PUD Prophylasis PUD Prophylaxis: Protonix Assessment/Plan Assessment Summary: Anemia of CKD, Hypertension, End Stage Renal Disease Problem List: (1) Pleural effusion, right ICD Codes: J90 - Pleural effusion, not elsewhere classified Status: Acute (2) Sinus tachycardia ICD Codes: R00.0 - Tachycardia, unspecified Status: Acute (3) Hypertension ICD Codes: I10 - Essential (primary) hypertension Status: Acute (4) Anemia of chronic kidney failure ICD Codes: N18.9 - Chronic kidney disease, unspecified; D63.1 - Anemia in chronic kidney disease Status: Acute (5) ESRD on peritoneal dialysis ICD Codes: N18.6 - End stage renal disease; Z99.2 - Dependence on renal dialysis Status: Acute Plan Continues on PD, ongoing high creatinine. PD prescription adjusted , increase volume and time. Right-sided chest tube. Pulmonary following. BP better On Percocet Hgb. is stable. Creatinine is still elevated and increasing. D/W Dr. Calle, started on HD and see if improve the Creatinine and Pleural effusion. 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 HD again today. Problem Qualifiers (1) Hypertension: Qualified Codes: I10 - Essential (primary) hypertension (2) Anemia of chronic kidney failure: rBina Ernst MD Jan 14, 2017 09:37
--- NOTE | 2017-01-14 10:22 | HHI.PR ---
Subjective History of Present Illness Patient same . high creatinine nephrology following. getting hemodialysis today still have right side chest tube in still draining fluid..once fluid drained out need pleurodehesis Review of Systems Constitutional Constitutional: Fatigue, Weakness Pulmonary Pulmonary Remarks right side chest tube in place. Vitals/Results Vital Signs Vital Signs Date Time Temp Pulse Resp B/P (MAP) Pulse Ox O2 Delivery O2 Flow Rate FiO2 01/14/17 09:08 Room Air 01/14/17 08:00 98.6 84 18 114/61 (78) 95 01/14/17 03:45 98.1 87 16 115/62 (79) 99 01/14/17 00:00 98.1 81 16 93/51 (65) 99 01/13/17 19:50 98.9 84 16 115/64 (81) 97 01/13/17 12:00 98.0 77 18 100/54 (69) 95 CBC/BMP: 01/14/17 0615 01/14/17 0615 Lab Results Laboratory Tests Test 01/13/17 16:15 01/14/17 06:15 White Blood Count 8.7 TH/MM3 Red Blood Count 4.04 MIL/MM3 Hemoglobin 9.3 GM/DL Hematocrit 30.0 % Mean Corpuscular Volume 74.2 FL Mean Corpuscular Hemoglobin 23.0 PG Mean Corpuscular Hemoglobin Concent 31.0 % Red Cell Distribution Width 24.4 % Platelet Count 258 TH/MM3 Mean Platelet Volume 11.1 FL Neutrophils (%) (Auto) 77.0 % Lymphocytes (%) (Auto) 6.7 % Monocytes (%) (Auto) 11.6 % Eosinophils (%) (Auto) 3.4 % Basophils (%) (Auto) 1.3 % Neutrophils # (Auto) 6.7 TH/MM3 Lymphocytes # (Auto) 0.6 TH/MM3 Monocytes # (Auto) 1.0 TH/MM3 Eosinophils # (Auto) 0.3 TH/MM3 Basophils # (Auto) 0.1 TH/MM3 CBC Comment AUTO DIFF Differential Comment AUTO DIFF CONFIRMED Tear Drop Cells 1+ Ovalocytes 1+ Keratocytes 1+ Blood Urea Nitrogen 29 MG/DL Creatinine 9.85 MG/DL Random Glucose 87 MG/DL Total Protein 6.2 GM/DL Albumin 2.1 GM/DL Calcium Level 8.3 MG/DL Alkaline Phosphatase 139 U/L Aspartate Amino Transf (AST/SGOT) 47 U/L Alanine Aminotransferase (ALT/SGPT) 32 U/L Total Bilirubin 0.3 MG/DL Sodium Level 133 MEQ/L Potassium Level 4.9 MEQ/L Chloride Level 95 MEQ/L Carbon Dioxide Level 31.8 MEQ/L Anion Gap 6 MEQ/L Estimat Glomerular Filtration Rate 5 ML/MIN Physical Exam General General Appearance: No Acute Distress, Comfortable Eyes Eye Exam: Sclera White, Extraocular Movement Intact Throat Throat Exam: Oral Mucosa [place] & Moist, Oral Pharynx Normal Neck Neck Exam: Neck Supple, Trachea Midline Pulmonary Resp Exam: Clear Bilaterally, Breath Sounds Equal, No Distress, Decreased Bases Resp Remarks Right side chest tube in. Cardiology CV Exam: Regular Chest/Breast Chest/Breast Remarks right side chest tube in place. Gastrointestinal/Abdomen GI Exam: Soft, Non-Tender, Bowel Sounds Present Musculoskeletal MS Exam: Joints Intact Integumentary Skin Exam: Warm, Dry Extremeties Extremities Exam: Trace Edema Neurologic Neuro Exam: Alert, Awake, Oriented, No Focal Deficits Psychiatric Psych Exam: Appropriate Responses PUD Prophylasis PUD Prophylaxis: Protonix Assessment/Plan Assessment/Plan Assessment and Plan Assessment and Plan Large right sided pleural effusion s/p right side chest tube placement still draining fluid Fluid once fluid drained out need pleurodehesis analysis negative for malignant cell. s/p CT scan of chest and chest x- ray. shows moderate left pleural effusion and Large right Hydropneumothorax with complex loculated component as well as pulmonary consolidation and possible rounded Atelectasis / mass pulmonary managing the patient. S/P Right lung collapse s/p chest tube in place End-stage renal disease on peritoneal dialysis nephrology following .. getting hemodialysis today. Anemia of chronic disease Resting dyspnea secondary to the pleural effusion..better after chest tube placement. Hypertension on home medicine will monitor blood pressure.+ Norvasc to 5 mg PO BID.+ Metoprolol. Oncologist and Prepress Supervisor and pulmonary input noted Non sustained venticular tachycardia cardiology input noted on metoprolol Discussed with patient Check CBC with diff CMP in AM. Discussed Condition with: Patient Felipe Alvarado MD Jan 14, 2017 10:22
--- NOTE | 2017-01-14 13:24 | PD.CARD.PN ---
Subjective Subjective Remarks The patient had HD this morning. HR improved overnight. No CP. CT to suction, no airleak. Objective Medications Current Medications Medications (Trade) Dose Ordered Sig/Louie Route Start Time Stop Time Status Last Admin (Prinivil) 5 mg BID PO 12/27/16 21:00 01/14/17 09:08 (Nephrocaps) 1 cap DAILY PO 12/28/16 09:00 01/14/17 09:08 (Rocaltrol) 0.5 mcg MoWeFr@17 PO 12/28/16 17:00 01/13/17 19:31 (NS Flush) 2 ml UNSCH PRN IV FLUSH 12/27/16 15:30 01/10/17 18:33 (NS Flush) 2 ml BID IV FLUSH 12/27/16 21:00 01/14/17 09:06 (Tylenol) 650 mg Q4H PRN PO 12/27/16 15:30 01/13/17 19:33 (Narcan Inj) 0.4 mg UNSCH PRN IV 12/27/16 15:30 (Annie-Colace) 1 tab BID PO 12/27/16 21:00 01/13/17 08:01 (Milk Of Magnesia Liq) 30 ml Q12H PRN PO 12/27/16 15:30 (Senokot) 17.2 mg Q12H PRN PO 12/27/16 15:30 01/04/17 21:34 (Dulcolax Supp) 10 mg DAILY PRN RECTAL 12/27/16 15:30 (Lactulose Liq) 30 ml DAILY PRN PO 12/27/16 15:30 (Heparin Inj) 1,000 units WITH DIALYSIS PRN XX 12/28/16 17:15 (NS Flush) 10 ml UNSCH PRN IV FLUSH 12/28/16 17:15 (Lopressor) 50 mg BID PO 01/09/17 09:00 01/14/17 09:09 (Protonix) 20 mg DAILY PO 01/10/17 09:00 01/13/17 09:00 (Reglan) 5 mg ACHS PO 01/10/17 07:00 01/11/17 21:08 ([place] 10-325 Mg) 1 tab Q6H PRN PO 01/10/17 16:15 01/11/17 09:39 (Transderm-Scop 1.5 Mg Patch.72 Hr) 1 patch Q3D T-DERMAL 01/10/17 21:00 01/10/17 21:37 Miscellaneous Information 1 Q3D T-DERMAL 01/13/17 21:00 01/13/17 23:01 (Zofran Inj) 4 mg Q4H PRN IVP 01/10/17 21:00 01/10/17 22:01 Sodium Chloride 1,000 ml @ 0 mls/hr Q0M PRN OTHER 01/13/17 12:38 (Heparin Inj) 8,000 units UNSCH PRN IVF 01/13/17 12:45 Sodium Chloride 1,000 ml @ 200 mls/hr Q5H PRN IV 01/13/17 12:38 Sodium Chloride 1,000 ml @ 0 mls/hr Q0M PRN OTHER 01/13/17 12:38 (Mannitol Inj) 12.5 gm UNSCH PRN IV 01/13/17 12:45 (Albumin 25% Inj) 25 gm UNSCH PRN IV 01/13/17 12:45 (NS Flush) 5 ml UNSCH PRN IV FLUSH 01/13/17 12:45 (Heparin Inj) UNSCH PRN .XX 01/13/17 12:45 (Gentamicin (Dialysis) Inj) 20 mg UNSCH PRN IV 01/13/17 12:45 (Zofran Inj) 4 mg UNSCH PRN IV 01/13/17 12:45 (Tylenol) 650 mg UNSCH PRN PO 01/13/17 12:45 (Benadryl) 25 mg UNSCH PRN PO 01/13/17 12:45 (Nitrostat Sl) 0.4 mg UNSCH PRN SL 01/13/17 12:45 (Catapres) 0.1 mg UNSCH PRN PO 01/13/17 12:45 (Gelfoam 12 Mm/7 Mm Top) 1 foam UNSCH PRN TOP 01/13/17 12:45 (Renvela) 3,200 mg TIDAC PO 01/14/17 12:00 01/14/17 13:05 Vital Signs / I&O Vital Signs Date Time Temp Pulse Resp B/P (MAP) Pulse Ox O2 Delivery O2 Flow Rate FiO2 01/14/17 09:08 Room Air 01/14/17 08:00 98.6 84 18 114/61 (78) 95 01/14/17 03:45 98.1 87 16 115/62 (79) 99 01/14/17 00:00 98.1 81 16 93/51 (65) 99 01/13/17 19:50 98.9 84 16 115/64 (81) 97 I/O 01/13/17 01/13/17 01/13/17 01/14/17 01/14/17 01/14/17 06:59 14:59 22:59 06:59 14:59 22:59 Intake Total 360 ml 1320 ml 480 ml Output Total 60 ml 607 ml 1000 ml 1000 ml Balance 300 ml -607 ml 320 ml 480 ml -1000 ml Intake Oral 360 ml 1320 ml 480 ml Chest Tube Drainage Total 60 ml Peritoneal Fluid 607 ml Hemodialysis 1000 ml 1000 ml # Bowel Movements 0 Physical Exam GENERAL: Thin AA female SKIN: Warm and dry. HEAD: Normocephalic. EYES: No scleral icterus. No injection or drainage. NECK: Supple, trachea midline. CARDIOVASCULAR: Regular rate and rhythm without murmurs, gallops, or rubs. Left arm AV fistula RESPIRATORY: Breath sounds equal bilaterally. No accessory muscle use. Chest tube no air leak GASTROINTESTINAL: Abdomen soft, non-tender, nondistended. MUSCULOSKELETAL: No cyanosis, or edema. BACK: Nontender without obvious deformity. No CVA tenderness. Laboratory Laboratory Tests Test 01/13/17 16:15 01/14/17 06:15 White Blood Count 8.7 TH/MM3 Red Blood Count 4.04 MIL/MM3 Hemoglobin 9.3 GM/DL Hematocrit 30.0 % Mean Corpuscular Volume 74.2 FL Mean Corpuscular Hemoglobin 23.0 PG Mean Corpuscular Hemoglobin Concent 31.0 % Red Cell Distribution Width 24.4 % Platelet Count 258 TH/MM3 Mean Platelet Volume 11.1 FL Neutrophils (%) (Auto) 77.0 % Lymphocytes (%) (Auto) 6.7 % Monocytes (%) (Auto) 11.6 % Eosinophils (%) (Auto) 3.4 % Basophils (%) (Auto) 1.3 % Neutrophils # (Auto) 6.7 TH/MM3 Lymphocytes # (Auto) 0.6 TH/MM3 Monocytes # (Auto) 1.0 TH/MM3 Eosinophils # (Auto) 0.3 TH/MM3 Basophils # (Auto) 0.1 TH/MM3 CBC Comment AUTO DIFF Differential Comment AUTO DIFF CONFIRMED Tear Drop Cells 1+ Ovalocytes 1+ Keratocytes 1+ Blood Urea Nitrogen 29 MG/DL Creatinine 9.85 MG/DL Random Glucose 87 MG/DL Total Protein 6.2 GM/DL Albumin 2.1 GM/DL Calcium Level 8.3 MG/DL Alkaline Phosphatase 139 U/L Aspartate Amino Transf (AST/SGOT) 47 U/L Alanine Aminotransferase (ALT/SGPT) 32 U/L Total Bilirubin 0.3 MG/DL Sodium Level 133 MEQ/L Potassium Level 4.9 MEQ/L Chloride Level 95 MEQ/L Carbon Dioxide Level 31.8 MEQ/L Anion Gap 6 MEQ/L Estimat Glomerular Filtration Rate 5 ML/MIN Assessment and Plan Problem List: (1) Wide-complex tachycardia ICD Codes: I47.2 - Ventricular tachycardia (2) Pleural effusion, right ICD Codes: J90 - Pleural effusion, not elsewhere classified Status: Acute (3) ESRD on peritoneal dialysis ICD Codes: N18.6 - End stage renal disease; Z99.2 - Dependence on renal dialysis Status: Acute (4) Anemia of chronic kidney failure ICD Codes: N18.9 - Chronic kidney disease, unspecified; D63.1 - Anemia in chronic kidney disease Status: Acute (5) Hypertension ICD Codes: I10 - Essential (primary) hypertension Status: Acute (6) Sinus tachycardia ICD Codes: R00.0 - Tachycardia, unspecified Status: Acute Assessment and Plan Continue current cardiac management. Tolerated HD this morning. Patient seen and evaluated by Dr Trevino who completed face to face encounter and physical exam and participated in evaluation and management. Problem Qualifiers (1) Anemia of chronic kidney failure: (2) Hypertension: Qualified Codes: I10 - Essential (primary) hypertension Soraya Garrett Jan 14, 2017 13:24
[2017-01-15] VITALS (10 sets, daily range): BP systolic 117–154; BP diastolic 63–71; PULSE 71–81; RESP 16–18; TEMP 97–99; O2SAT 96–100
--- NOTE | 2017-01-15 06:27 | RADRPT ---
EXAM DATE/TIME: 01/15/2017 05:18 [place] COMPARISON: CHEST SINGLE AP, January 08, 2017, 2:45. INDICATIONS : Shortness of breath. MEDICAL HISTORY : Carcinoma, breast. Renal disease, end stage. Hypertension SURGICAL HISTORY : Right chest tube ENCOUNTER: Subsequent ACUITY: 2 weeks PAIN SCORE: 4/10 LOCATION: Bilateral chest FINDINGS: Small caliber right chest tube is present. There is stable loculated air and fluid in the right hemit horax with consolidation. Minimal left basilar opacity and small left effusion. Cardiomegaly. CONCLUSION: 1. Stable chest radiograph compared with January 08. Right chest tube remains present. Gideon Jolly MD on January 15, 2017 at 6:25 Board Certified Radiologist. This report was verified electronically.
[2017-01-15] MEDS: METOCLOPRAMIDE HCL 10 MG TAB PO SCH ×4 (06:48→22:11)
[2017-01-15 07:05] LABS: AUTOMATED NEUTROPHIL # 4.3 TH/MM3 (1.8-7.7); BASOPHIL # 0.1 TH/MM3 (0-0.2); BASOPHIL % 1.1 % (0.0-2.0); EOSINOPHIL # 0.3 TH/MM3 (0-0.4); EOSINOPHIL % 4.6 % (0.0-4.0); HEMATOCRIT 30.6 % (35.0-46.0); LYMPH % 14.9 % (9.0-44.0); MEAN CELL VOLUME 75.1 FL (80.0-100.0); MEAN CORPUSCULAR HEMOGLOBIN 23.3 PG (27.0-34.0); MONO % 13.9 % (0.0-8.0); NEUT % 65.5 % (16.0-70.0); PLATELET COUNT 260 TH/MM3 (150-450); RED BLOOD COUNT 4.07 MIL/MM3 (4.00-5.30); RED CELL DISTRIBUTION WIDTH 23.7 % (11.6-17.2); WHITE BLOOD COUNT 6.6 TH/MM3 (4.0-11.0)
[2017-01-15 07:16] LABS: ALT (GPT) 30 U/L (10-53); ANION GAP 8 MEQ/L (5-15); AST (GOT) 22 U/L (15-37); BICARBONATE 32.8 MEQ/L (21.0-32.0); BLOOD UREA NITROGEN 17 MG/DL (7-18); CHLORIDE 95 MEQ/L (98-107); GLOMERULAR FILTRATION RATE 8 ML/MIN (>89); POTASSIUM 3.8 MEQ/L (3.5-5.1); SODIUM (NA) 136 MEQ/L (136-145)
[2017-01-15 07:19] LABS: ALKALINE PHOSPHATASE 140 U/L (45-117); TOTAL BILIRUBIN ADULT 0.2 MG/DL (0.2-1.0)
[2017-01-15] MEDS: DOCUSATE SODIUM 50 MG/SENNA 8.6 MG TAB PO SCH ×2 (07:33→22:11)
[2017-01-15] MEDS: METOPROLOL TARTRATE 50 MG TAB PO SCH ×2 (07:34→22:11)
[2017-01-15] MEDS: VITAMIN B CMPLX/VITC/FOLIC AC CAP PO SCH (07:34)
[2017-01-15] MEDS: LISINOPRIL 5 MG TAB PO SCH ×2 (07:34→22:11)
[2017-01-15] MEDS: PANTOPRAZOLE SOD 20 MG DELAYED RELEASE TAB PO SCH (07:34)
[2017-01-15] MEDS: SEVELAMER CARBONATE 800 MG TAB PO SCH ×3 (07:35→16:25)
[2017-01-15 07:37] LABS: HEMO FLAGS AUTO DIFF
[2017-01-15] MEDS: SODIUM CHLORIDE 0.9% FLUSH 10 ML FLUSH IV FLUSH SCH ×2 (07:37→22:12)
[2017-01-15 08:34] LABS: KERATOCYTES OCC (NORMAL); OVALOCYTES 1+ (NORMAL); SCAN/DIFF AUTO DIFF CONFIRMED; TEARDROP RBCS 1+ (NORMAL)
--- NOTE | 2017-01-15 10:15 | HHI.PR ---
Subjective History of Present Illness Patient same . high creatinine nephrology following. on hemodialysis still have right side chest tube in still draining fluid..once fluid drained out need pleurodehesis Review of Systems Constitutional Constitutional: Fatigue, Weakness Pulmonary Pulmonary Remarks right side chest tube in place. Vitals/Results Vital Signs Vital Signs Date Time Temp Pulse Resp B/P (MAP) Pulse Ox O2 Delivery O2 Flow Rate FiO2 01/15/17 08:00 98.3 79 18 124/64 (84) 98 01/15/17 06:55 74 01/15/17 04:00 98.0 79 16 154/71 (98) 100 01/15/17 00:01 99.0 76 16 125/66 (85) 97 01/14/17 19:00 98.8 79 16 120/60 (80) 99 01/14/17 17:33 99 21 01/14/17 16:00 96.3 76 18 104/59 (74) 98 01/14/17 12:30 97.5 72 18 110/61 (77) 100 CBC/BMP: 01/15/17 0543 01/15/17 0543 Lab Results Laboratory Tests Test 01/15/17 05:43 White Blood Count 6.6 TH/MM3 Red Blood Count 4.07 MIL/MM3 Hemoglobin 9.5 GM/DL Hematocrit 30.6 % Mean Corpuscular Volume 75.1 FL Mean Corpuscular Hemoglobin 23.3 PG Mean Corpuscular Hemoglobin Concent 31.0 % Red Cell Distribution Width 23.7 % Platelet Count 260 TH/MM3 Mean Platelet Volume 11.1 FL Neutrophils (%) (Auto) 65.5 % Lymphocytes (%) (Auto) 14.9 % Monocytes (%) (Auto) 13.9 % Eosinophils (%) (Auto) 4.6 % Basophils (%) (Auto) 1.1 % Neutrophils # (Auto) 4.3 TH/MM3 Lymphocytes # (Auto) 1.0 TH/MM3 Monocytes # (Auto) 0.9 TH/MM3 Eosinophils # (Auto) 0.3 TH/MM3 Basophils # (Auto) 0.1 TH/MM3 CBC Comment AUTO DIFF Differential Comment AUTO DIFF CONFIRMED Tear Drop Cells 1+ Ovalocytes 1+ Keratocytes OCC Blood Urea Nitrogen 17 MG/DL Creatinine 6.61 MG/DL Random Glucose 84 MG/DL Total Protein 6.4 GM/DL Albumin 2.1 GM/DL Calcium Level 8.4 MG/DL Alkaline Phosphatase 140 U/L Aspartate Amino Transf (AST/SGOT) 22 U/L Alanine Aminotransferase (ALT/SGPT) 30 U/L Total Bilirubin 0.2 MG/DL Sodium Level 136 MEQ/L Potassium Level 3.8 MEQ/L Chloride Level 95 MEQ/L Carbon Dioxide Level 32.8 MEQ/L Anion Gap 8 MEQ/L Estimat Glomerular Filtration Rate 8 ML/MIN Physical Exam General General Appearance: No Acute Distress, Comfortable Eyes Eye Exam: Sclera White, Extraocular Movement Intact Throat Throat Exam: Oral Mucosa [place] & Moist, Oral Pharynx Normal Neck Neck Exam: Neck Supple, Trachea Midline Pulmonary Resp Exam: Clear Bilaterally, Breath Sounds Equal, No Distress, Decreased Bases Resp Remarks Right side chest tube in. Cardiology CV Exam: Regular Chest/Breast Chest/Breast Remarks right side chest tube in place. Gastrointestinal/Abdomen GI Exam: Soft, Non-Tender, Bowel Sounds Present Musculoskeletal MS Exam: Joints Intact Integumentary Skin Exam: Warm, Dry Extremeties Extremities Exam: Trace Edema Neurologic Neuro Exam: Alert, Awake, Oriented, No Focal Deficits Psychiatric Psych Exam: Appropriate Responses PUD Prophylasis PUD Prophylaxis: Protonix Assessment/Plan Assessment/Plan Assessment and Plan Assessment and Plan Large right sided pleural effusion s/p right side chest tube placement still draining fluid Fluid once fluid drained out need pleurodehesis analysis negative for malignant cell. s/p CT scan of chest and chest x- ray. shows moderate left pleural effusion and Large right Hydropneumothorax with complex loculated component as well as pulmonary consolidation and possible rounded Atelectasis / mass pulmonary managing the patient. S/P Right lung collapse s/p chest tube in place End-stage renal disease on peritoneal dialysis nephrology following .. getting hemodialysis today. Anemia of chronic disease Resting dyspnea secondary to the pleural effusion..better after chest tube placement. Hypertension on home medicine will monitor blood pressure.+ Norvasc to 5 mg PO BID.+ Metoprolol. Oncologist and Lease Out Man and pulmonary input noted Non sustained venticular tachycardia cardiology input noted on metoprolol Discussed with patient Check CBC with diff CMP in AM. Discussed Condition with: Patient Felipe Alvarado MD Jan 15, 2017 10:15
--- NOTE | 2017-01-15 12:18 | HHI.NPPN ---
Subjective History of Present Illness 56-year-old female with past medical history of hypertension, chronic anemia, history of breast cancer, end-stage renal disease on peritoneal dialysis, history of gastroesophageal reflux disease, history of GI bleeding came to the hospital referred by Dr. Maher her oncologist. The patient has this cough going on for the last five or six months and she had a chest CT done as an outpatient which showed that she has some pleural effusion and she was referred by her oncologist, Dr. Maher, to go to the hospital for possible thoracentesis. Additional Remarks Patient is alert, now feeling better, no chest pain, no SOB. Review of Systems General Constitutional: Fatigue Respiratory Lungs: Cough Cardiovascular Cardiac: BACON Objective Data Data 01/15/17 01/16/17 19:00 07:00 Output Total 140 ml Balance -140 ml Chest Tube Drainage Total 140 ml Vital Signs Date Time Temp Pulse Resp B/P (MAP) Pulse Ox O2 Delivery O2 Flow Rate FiO2 01/15/17 11:15 97.7 71 16 130/69 (89) 97 01/15/17 08:00 98.3 79 18 124/64 (84) 98 01/15/17 06:55 74 01/15/17 04:00 98.0 79 16 154/71 (98) 100 01/15/17 00:01 99.0 76 16 125/66 (85) 97 01/14/17 19:00 98.8 79 16 120/60 (80) 99 01/14/17 17:33 99 21 01/14/17 16:00 96.3 76 18 104/59 (74) 98 01/14/17 12:30 97.5 72 18 110/61 (77) 100 -: 01/15/17 0543 01/15/17 0543 Physical Exam General Appearance: No Acute Distress, Comfortable Eyes Eye Exam: Sclera White, Extraocular Movement Intact Throat Throat Exam: Oral Mucosa [place] & Moist, Oral Pharynx Normal Neck Neck Exam: Neck Supple, Trachea Midline Pulmonary Resp Exam: Clear Bilaterally, Breath Sounds Equal, No Distress, Decreased Bases Cardiology CV Exam: Regular Gastrointestinal/Abdomen GI Exam: Soft, Non-Tender, Bowel Sounds Present Musculoskeletal MS Exam: Joints Intact Integumentary Skin Exam: Warm, Dry Extremeties Extremities Exam: Trace Edema Neurologic Neuro Exam: Alert, Awake, Oriented, No Focal Deficits Psychiatric Psych Exam: Appropriate Responses PUD Prophylasis PUD Prophylaxis: Protonix Assessment/Plan Assessment Summary: Anemia of CKD, Hypertension, End Stage Renal Disease Problem List: (1) Pleural effusion, right ICD Codes: J90 - Pleural effusion, not elsewhere classified Status: Acute (2) Sinus tachycardia ICD Codes: R00.0 - Tachycardia, unspecified Status: Acute (3) Hypertension ICD Codes: I10 - Essential (primary) hypertension Status: Acute (4) Anemia of chronic kidney failure ICD Codes: N18.9 - Chronic kidney disease, unspecified; D63.1 - Anemia in chronic kidney disease Status: Acute (5) ESRD on peritoneal dialysis ICD Codes: N18.6 - End stage renal disease; Z99.2 - Dependence on renal dialysis Status: Acute Plan Continues on PD, ongoing high creatinine. PD prescription adjusted , increase volume and time. Right-sided chest tube. Pulmonary following. BP better On Percocet Hgb. is stable. Creatinine is still elevated and increasing. D/W Dr. Calle, started on HD and see if improve the Creatinine and Pleural effusion. Creatinine is better, Pulmonary following. Still has yellowish fluid from Chest tube. Problem Qualifiers (1) Hypertension: Qualified Codes: I10 - Essential (primary) hypertension (2) Anemia of chronic kidney failure: Brina Ernst MD Jan 15, 2017 12:18
--- NOTE | 2017-01-15 15:02 | PD.CARD.PN ---
Subjective Subjective Remarks The patient states she "feels good" . No cardiac complaints today. Objective Medications Current Medications Medications (Trade) Dose Ordered Sig/Louie Route Start Time Stop Time Status Last Admin (Prinivil) 5 mg BID PO 12/27/16 21:00 01/15/17 07:34 (Nephrocaps) 1 cap DAILY PO 12/28/16 09:00 01/15/17 07:34 (Rocaltrol) 0.5 mcg MoWeFr@17 PO 12/28/16 17:00 01/13/17 19:31 (NS Flush) 2 ml UNSCH PRN IV FLUSH 12/27/16 15:30 01/10/17 18:33 (NS Flush) 2 ml BID IV FLUSH 12/27/16 21:00 01/15/17 07:37 (Tylenol) 650 mg Q4H PRN PO 12/27/16 15:30 01/13/17 19:33 (Narcan Inj) 0.4 mg UNSCH PRN IV 12/27/16 15:30 (Annie-Colace) 1 tab BID PO 12/27/16 21:00 01/13/17 08:01 (Milk Of Magnesia Liq) 30 ml Q12H PRN PO 12/27/16 15:30 (Senokot) 17.2 mg Q12H PRN PO 12/27/16 15:30 01/04/17 21:34 (Dulcolax Supp) 10 mg DAILY PRN RECTAL 12/27/16 15:30 (Lactulose Liq) 30 ml DAILY PRN PO 12/27/16 15:30 (Heparin Inj) 1,000 units WITH DIALYSIS PRN XX 12/28/16 17:15 (NS Flush) 10 ml UNSCH PRN IV FLUSH 12/28/16 17:15 (Lopressor) 50 mg BID PO 01/09/17 09:00 01/15/17 07:34 (Protonix) 20 mg DAILY PO 01/10/17 09:00 01/15/17 07:34 (Reglan) 5 mg ACHS PO 01/10/17 07:00 01/11/17 21:08 ([place] 10-325 Mg) 1 tab Q6H PRN PO 01/10/17 16:15 01/11/17 09:39 (Transderm-Scop 1.5 Mg Patch.72 Hr) 1 patch Q3D T-DERMAL 01/10/17 21:00 01/10/17 21:37 Miscellaneous Information 1 Q3D T-DERMAL 01/13/17 21:00 01/13/17 23:01 (Zofran Inj) 4 mg Q4H PRN IVP 01/10/17 21:00 01/10/17 22:01 Sodium Chloride 1,000 ml @ 0 mls/hr Q0M PRN OTHER 01/13/17 12:38 (Heparin Inj) 8,000 units UNSCH PRN IVF 01/13/17 12:45 Sodium Chloride 1,000 ml @ 200 mls/hr Q5H PRN IV 01/13/17 12:38 Sodium Chloride 1,000 ml @ 0 mls/hr Q0M PRN OTHER 01/13/17 12:38 (Mannitol Inj) 12.5 gm UNSCH PRN IV 01/13/17 12:45 (Albumin 25% Inj) 25 gm UNSCH PRN IV 01/13/17 12:45 (NS Flush) 5 ml UNSCH PRN IV FLUSH 01/13/17 12:45 (Heparin Inj) UNSCH PRN .XX 01/13/17 12:45 (Gentamicin (Dialysis) Inj) 20 mg UNSCH PRN IV 01/13/17 12:45 (Zofran Inj) 4 mg UNSCH PRN IV 01/13/17 12:45 (Tylenol) 650 mg UNSCH PRN PO 01/13/17 12:45 (Benadryl) 25 mg UNSCH PRN PO 01/13/17 12:45 (Nitrostat Sl) 0.4 mg UNSCH PRN SL 01/13/17 12:45 (Catapres) 0.1 mg UNSCH PRN PO 01/13/17 12:45 (Gelfoam 12 Mm/7 Mm Top) 1 foam UNSCH PRN TOP 01/13/17 12:45 (Renvela) 3,200 mg TIDAC PO 01/14/17 12:00 01/15/17 11:15 Vital Signs / I&O Vital Signs Date Time Temp Pulse Resp B/P (MAP) Pulse Ox O2 Delivery O2 Flow Rate FiO2 01/15/17 11:15 97.7 71 16 130/69 (89) 97 01/15/17 08:00 98.3 79 18 124/64 (84) 98 01/15/17 06:55 74 01/15/17 04:00 98.0 79 16 154/71 (98) 100 01/15/17 00:01 99.0 76 16 125/66 (85) 97 01/14/17 19:00 98.8 79 16 120/60 (80) 99 01/14/17 17:33 99 21 01/14/17 16:00 96.3 76 18 104/59 (74) 98 I/O 01/14/17 01/14/17 01/14/17 01/15/17 01/15/17 01/15/17 07:00 15:00 23:00 07:00 15:00 23:00 Intake Total 480 ml 840 ml Output Total 1070 ml 140 ml Balance 480 ml -1070 ml 840 ml -140 ml Intake Oral 480 ml 840 ml Chest Tube Drainage Total 70 ml 140 ml Hemodialysis 1000 ml # Bowel Movements 1 Physical Exam GENERAL: Thin AA female SKIN: Warm and dry. HEAD: Normocephalic. EYES: No scleral icterus. No injection or drainage. NECK: Supple, trachea midline. CARDIOVASCULAR: Regular rate and rhythm without murmurs, gallops, or rubs. Left arm AV fistula RESPIRATORY: Breath sounds equal bilaterally. No accessory muscle use. Chest tube no air leak GASTROINTESTINAL: Abdomen soft, non-tender, nondistended. MUSCULOSKELETAL: No cyanosis, or edema. BACK: Nontender without obvious deformity. No CVA tenderness. Laboratory Laboratory Tests Test 01/15/17 05:43 White Blood Count 6.6 TH/MM3 Red Blood Count 4.07 MIL/MM3 Hemoglobin 9.5 GM/DL Hematocrit 30.6 % Mean Corpuscular Volume 75.1 FL Mean Corpuscular Hemoglobin 23.3 PG Mean Corpuscular Hemoglobin Concent 31.0 % Red Cell Distribution Width 23.7 % Platelet Count 260 TH/MM3 Mean Platelet Volume 11.1 FL Neutrophils (%) (Auto) 65.5 % Lymphocytes (%) (Auto) 14.9 % Monocytes (%) (Auto) 13.9 % Eosinophils (%) (Auto) 4.6 % Basophils (%) (Auto) 1.1 % Neutrophils # (Auto) 4.3 TH/MM3 Lymphocytes # (Auto) 1.0 TH/MM3 Monocytes # (Auto) 0.9 TH/MM3 Eosinophils # (Auto) 0.3 TH/MM3 Basophils # (Auto) 0.1 TH/MM3 CBC Comment AUTO DIFF Differential Comment AUTO DIFF CONFIRMED Tear Drop Cells 1+ Ovalocytes 1+ Keratocytes OCC Blood Urea Nitrogen 17 MG/DL Creatinine 6.61 MG/DL Random Glucose 84 MG/DL Total Protein 6.4 GM/DL Albumin 2.1 GM/DL Calcium Level 8.4 MG/DL Alkaline Phosphatase 140 U/L Aspartate Amino Transf (AST/SGOT) 22 U/L Alanine Aminotransferase (ALT/SGPT) 30 U/L Total Bilirubin 0.2 MG/DL Sodium Level 136 MEQ/L Potassium Level 3.8 MEQ/L Chloride Level 95 MEQ/L Carbon Dioxide Level 32.8 MEQ/L Anion Gap 8 MEQ/L Estimat Glomerular Filtration Rate 8 ML/MIN Imaging Last 72 hours Impressions Chest X-Ray 01/15/17 0600 Signed Impressions: Service Date/Time: Sunday, January 15, 2017 05:18 - CONCLUSION: 1. Stable chest radiograph compared with January 08. Right chest tube remains present. Gideon Jolly MD Assessment and Plan Problem List: (1) Wide-complex tachycardia ICD Codes: I47.2 - Ventricular tachycardia (2) Pleural effusion, right ICD Codes: J90 - Pleural effusion, not elsewhere classified Status: Acute (3) ESRD on peritoneal dialysis ICD Codes: N18.6 - End stage renal disease; Z99.2 - Dependence on renal dialysis Status: Acute (4) Anemia of chronic kidney failure ICD Codes: N18.9 - Chronic kidney disease, unspecified; D63.1 - Anemia in chronic kidney disease Status: Acute (5) Hypertension ICD Codes: I10 - Essential (primary) hypertension Status: Acute (6) Sinus tachycardia ICD Codes: R00.0 - Tachycardia, unspecified Status: Acute Assessment and Plan Continue current cardiac management. Tolerated HD this morning. Patient seen and evaluated by Dr Trevino who completed face to face encounter and physical exam and participated in evaluation and management. Problem Qualifiers (1) Anemia of chronic kidney failure: (2) Hypertension: Qualified Codes: I10 - Essential (primary) hypertension Soraya Garrett Jan 15, 2017 15:01
[2017-01-16 04:25] VITALS: BP 169/81; PULSE 76; RESP 17; TEMP 97.7; O2SAT 98
[2017-01-16] MEDS: METOCLOPRAMIDE HCL 10 MG TAB PO SCH ×4 (07:00→21:28)
[2017-01-16 07:47] LABS: AUTOMATED NEUTROPHIL # 5.1 TH/MM3 (1.8-7.7); BASOPHIL # 0.1 TH/MM3 (0-0.2); EOSINOPHIL # 0.4 TH/MM3 (0-0.4); EOSINOPHIL % 4.9 % (0.0-4.0); HEMATOCRIT 30.7 % (35.0-46.0); LYMPH % 17.5 % (9.0-44.0); LYMPHOCYTE # 1.3 TH/MM3 (1.0-4.8); MEAN CELL VOLUME 74.5 FL (80.0-100.0); MEAN CORPUSCULAR HEMOGLOBIN 22.9 PG (27.0-34.0); MEAN CORPUSCULAR HGB CONC 30.8 % (32.0-36.0); MONO % 9.3 % (0.0-8.0); NEUT % 67.3 % (16.0-70.0); PLATELET COUNT 268 TH/MM3 (150-450); RED BLOOD COUNT 4.12 MIL/MM3 (4.00-5.30); RED CELL DISTRIBUTION WIDTH 23.7 % (11.6-17.2); WHITE BLOOD COUNT 7.6 TH/MM3 (4.0-11.0)
[2017-01-16 07:53] LABS: HEMO FLAGS AUTO DIFF
[2017-01-16 08:00] VITALS: BP 143/69; PULSE 72; RESP 17; TEMP 97.9; O2SAT 100
[2017-01-16 08:13] LABS: ALKALINE PHOSPHATASE 114 U/L (45-117); ALT (GPT) 26 U/L (10-53); ANION GAP 7 MEQ/L (5-15); AST (GOT) 15 U/L (15-37); BICARBONATE 31.1 MEQ/L (21.0-32.0); BLOOD UREA NITROGEN 28 MG/DL (7-18); CHLORIDE 95 MEQ/L (98-107); GLOMERULAR FILTRATION RATE 6 ML/MIN (>89); POTASSIUM 4.3 MEQ/L (3.5-5.1); SODIUM (NA) 133 MEQ/L (136-145); TOTAL BILIRUBIN ADULT 0.2 MG/DL (0.2-1.0)
[2017-01-16] MEDS: LISINOPRIL 5 MG TAB PO SCH ×2 (08:58→21:30)
[2017-01-16] MEDS: DOCUSATE SODIUM 50 MG/SENNA 8.6 MG TAB PO SCH ×2 (08:58→21:28)
[2017-01-16] MEDS: VITAMIN B CMPLX/VITC/FOLIC AC CAP PO SCH (08:58)
[2017-01-16] MEDS: METOPROLOL TARTRATE 50 MG TAB PO SCH ×2 (08:58→21:30)
[2017-01-16] MEDS: SEVELAMER CARBONATE 800 MG TAB PO SCH ×3 (08:58→18:26)
[2017-01-16] MEDS: PANTOPRAZOLE SOD 20 MG DELAYED RELEASE TAB PO SCH (08:58)
[2017-01-16] MEDS: SODIUM CHLORIDE 0.9% FLUSH 10 ML FLUSH IV FLUSH SCH ×2 (08:59→21:30)
[2017-01-16 09:51] LABS: ACANTHOCYTES OCC (NORMAL); OVALOCYTES 1+ (NORMAL); SCAN/DIFF AUTO DIFF CONFIRMED; TEARDROP RBCS 1+ (NORMAL)
--- NOTE | 2017-01-16 11:37 | HHI.PR ---
Subjective History of Present Illness Patient same . high creatinine nephrology following. on hemodialysis getting today still have right side chest tube in still draining fluid..once fluid drained out need pleurodehesis d/w NILAY Whyte. Review of Systems Constitutional Constitutional: Fatigue, Weakness Pulmonary Pulmonary Remarks right side chest tube in place. Vitals/Results Vital Signs Vital Signs Date Time Temp Pulse Resp B/P (MAP) Pulse Ox O2 Delivery O2 Flow Rate FiO2 01/16/17 08:00 97.9 72 17 143/69 (93) 100 01/16/17 04:25 97.7 76 17 169/81 (110) 98 01/15/17 20:35 97.4 73 17 120/63 (82) 99 01/15/17 20:10 97.0 81 17 117/63 (81) 100 01/15/17 17:38 96 21 01/15/17 16:24 97.6 73 16 136/71 (92) 96 01/15/17 13:37 98 21 CBC/BMP: 01/16/17 0640 01/16/17 0640 Lab Results Laboratory Tests Test 01/16/17 06:40 White Blood Count 7.6 TH/MM3 Red Blood Count 4.12 MIL/MM3 Hemoglobin 9.4 GM/DL Hematocrit 30.7 % Mean Corpuscular Volume 74.5 FL Mean Corpuscular Hemoglobin 22.9 PG Mean Corpuscular Hemoglobin Concent 30.8 % Red Cell Distribution Width 23.7 % Platelet Count 268 TH/MM3 Mean Platelet Volume 10.0 FL Neutrophils (%) (Auto) 67.3 % Lymphocytes (%) (Auto) 17.5 % Monocytes (%) (Auto) 9.3 % Eosinophils (%) (Auto) 4.9 % Basophils (%) (Auto) 1.0 % Neutrophils # (Auto) 5.1 TH/MM3 Lymphocytes # (Auto) 1.3 TH/MM3 Monocytes # (Auto) 0.7 TH/MM3 Eosinophils # (Auto) 0.4 TH/MM3 Basophils # (Auto) 0.1 TH/MM3 CBC Comment AUTO DIFF Differential Comment AUTO DIFF CONFIRMED Tear Drop Cells 1+ Ovalocytes 1+ Acanthocytes OCC Blood Urea Nitrogen 28 MG/DL Creatinine 8.72 MG/DL Random Glucose 77 MG/DL Total Protein 5.8 GM/DL Albumin 2.1 GM/DL Calcium Level 8.3 MG/DL Alkaline Phosphatase 114 U/L Aspartate Amino Transf (AST/SGOT) 15 U/L Alanine Aminotransferase (ALT/SGPT) 26 U/L Total Bilirubin 0.2 MG/DL Sodium Level 133 MEQ/L Potassium Level 4.3 MEQ/L Chloride Level 95 MEQ/L Carbon Dioxide Level 31.1 MEQ/L Anion Gap 7 MEQ/L Estimat Glomerular Filtration Rate 6 ML/MIN Physical Exam General General Appearance: No Acute Distress, Comfortable Eyes Eye Exam: Sclera White, Extraocular Movement Intact Throat Throat Exam: Oral Mucosa [place] & Moist, Oral Pharynx Normal Neck Neck Exam: Neck Supple, Trachea Midline Pulmonary Resp Exam: Clear Bilaterally, Breath Sounds Equal, No Distress, Decreased Bases Resp Remarks Right side chest tube in. Cardiology CV Exam: Regular Chest/Breast Chest/Breast Remarks right side chest tube in place. Gastrointestinal/Abdomen GI Exam: Soft, Non-Tender, Bowel Sounds Present Musculoskeletal MS Exam: Joints Intact Integumentary Skin Exam: Warm, Dry Extremeties Extremities Exam: Trace Edema Neurologic Neuro Exam: Alert, Awake, Oriented, No Focal Deficits Psychiatric Psych Exam: Appropriate Responses PUD Prophylasis PUD Prophylaxis: Protonix Assessment/Plan Assessment/Plan Assessment and Plan Assessment and Plan Large right sided pleural effusion s/p right side chest tube placement still draining fluid Fluid once fluid drained out need pleurodehesis analysis negative for malignant cell. s/p CT scan of chest and chest x- ray. shows moderate left pleural effusion and Large right Hydropneumothorax with complex loculated component as well as pulmonary consolidation and possible rounded Atelectasis / mass pulmonary managing the patient. S/P Right lung collapse s/p chest tube in place End-stage renal disease was on peritoneal dialysis nephrology following .. on hemodialysis now getting today. Anemia of chronic disease Resting dyspnea secondary to the pleural effusion..better after chest tube placement. Hypertension on home medicine will monitor blood pressure.+ Norvasc to 5 mg PO BID.+ Metoprolol. Oncologist and Packaging Clerk and pulmonary input noted Non sustained venticular tachycardia cardiology input noted on metoprolol Discussed with patient Check CBC with diff CMP in AM. Discussed Condition with: Patient Felipe Alvarado MD Jan 16, 2017 11:37
[2017-01-16 12:00] VITALS: BP 134/73; PULSE 67; RESP 17; TEMP 96.6; O2SAT 100
[2017-01-16 14:26] VITALS: BP 117/60; PULSE 72; RESP 16; TEMP 96.7; O2SAT 100
--- NOTE | 2017-01-16 16:05 | HHI.NPPN ---
Subjective History of Present Illness 56-year-old female with past medical history of hypertension, chronic anemia, history of breast cancer, end-stage renal disease on peritoneal dialysis, history of gastroesophageal reflux disease, history of GI bleeding came to the hospital referred by Dr. Maher her oncologist. The patient has this cough going on for the last five or six months and she had a chest CT done as an outpatient which showed that she has some pleural effusion and she was referred by her oncologist, Dr. Maher, to go to the hospital for possible thoracentesis. Additional Remarks Patient is alert, feeling better, no SOB. Review of Systems General Constitutional: Fatigue Respiratory Lungs: Cough Cardiovascular Cardiac: BACON Objective Data Data 01/16/17 01/17/17 19:00 07:00 Output Total 20 ml Balance -20 ml Chest Tube Drainage Total 20 ml Vital Signs Date Time Temp Pulse Resp B/P (MAP) Pulse Ox O2 Delivery O2 Flow Rate FiO2 01/16/17 14:26 96.7 72 16 117/60 (79) 100 01/16/17 12:00 96.6 67 17 134/73 (93) 100 01/16/17 08:00 97.9 72 17 143/69 (93) 100 01/16/17 04:25 97.7 76 17 169/81 (110) 98 01/15/17 20:35 97.4 73 17 120/63 (82) 99 01/15/17 20:10 97.0 81 17 117/63 (81) 100 01/15/17 17:38 96 21 01/15/17 16:24 97.6 73 16 136/71 (92) 96 -: 01/16/17 0640 01/16/17 0640 Physical Exam General Appearance: No Acute Distress, Comfortable Eyes Eye Exam: Sclera White, Extraocular Movement Intact Throat Throat Exam: Oral Mucosa [place] & Moist, Oral Pharynx Normal Neck Neck Exam: Neck Supple, Trachea Midline Pulmonary Resp Exam: Clear Bilaterally, Breath Sounds Equal, No Distress, Decreased Bases Cardiology CV Exam: Regular Gastrointestinal/Abdomen GI Exam: Soft, Non-Tender, Bowel Sounds Present Musculoskeletal MS Exam: Joints Intact Integumentary Skin Exam: Warm, Dry Extremeties Extremities Exam: Trace Edema Neurologic Neuro Exam: Alert, Awake, Oriented, No Focal Deficits Psychiatric Psych Exam: Appropriate Responses PUD Prophylasis PUD Prophylaxis: Protonix Assessment/Plan Assessment Summary: Anemia of CKD, Hypertension, End Stage Renal Disease Problem List: (1) Pleural effusion, right ICD Codes: J90 - Pleural effusion, not elsewhere classified Status: Acute (2) Sinus tachycardia ICD Codes: R00.0 - Tachycardia, unspecified Status: Acute (3) Hypertension ICD Codes: I10 - Essential (primary) hypertension Status: Acute (4) Anemia of chronic kidney failure ICD Codes: N18.9 - Chronic kidney disease, unspecified; D63.1 - Anemia in chronic kidney disease Status: Acute (5) ESRD on peritoneal dialysis ICD Codes: N18.6 - End stage renal disease; Z99.2 - Dependence on renal dialysis Status: Acute Plan Right-sided chest tube. Pulmonary following. BP better On Percocet Hgb. is stable. started on HD and see if improve the Creatinine and Pleural effusion. Creatinine is better, Pulmonary following. Decreased fluid from the chest tube. Creatinine is much better with HD. Wait for pulmonary follow up. Patient want to go for PD in long run. Problem Qualifiers (1) Hypertension: Qualified Codes: I10 - Essential (primary) hypertension (2) Anemia of chronic kidney failure: Brina Ernst MD Jan 16, 2017 16:05
--- NOTE | 2017-01-16 17:23 | HHI.PR ---
Subjective Remarks 56 YOAA female with ESRD on PD, pl eff, ca breast Had right chest tube placed No CP no Fever No SOB Chest tube still draining Pl fluid cr 16.5 consistant with PD fluid Started HD Objective Vital Signs Vital Signs Date Time Temp Pulse Resp B/P (MAP) Pulse Ox O2 Delivery O2 Flow Rate FiO2 01/16/17 14:26 96.7 72 16 117/60 (79) 100 01/16/17 12:00 96.6 67 17 134/73 (93) 100 01/16/17 08:00 97.9 72 17 143/69 (93) 100 01/16/17 04:25 97.7 76 17 169/81 (110) 98 01/15/17 20:35 97.4 73 17 120/63 (82) 99 01/15/17 20:10 97.0 81 17 117/63 (81) 100 01/15/17 17:38 96 21 I/O 01/15/17 01/15/17 01/15/17 01/16/17 01/16/17 01/16/17 07:00 15:00 23:00 07:00 15:00 23:00 Intake Total 840 ml 720 ml Output Total 140 ml 0 ml 50 ml 20 ml 0 ml Balance -140 ml 840 ml -50 ml -20 ml 720 ml Intake Oral 840 ml 720 ml Output Urine Total 0 ml 0 ml Stool Total 0 ml Chest Tube Drainage Total 140 ml 50 ml 20 ml # Bowel Movements 1 Result Diagram: 01/16/17 0640 01/16/17 0640 Objective Remarks GENERAL: MBMN AA female,NAD SKIN: Warm and dry. HEAD: Normocephalic. EYES: No scleral icterus. No injection or drainage. NECK: Supple, trachea midline. No JVD or lymphadenopathy. CARDIOVASCULAR: Regular rate and rhythm without murmurs, gallops, or rubs. RESPIRATORY: Breath sounds equal bilaterally. No accessory muscle use. Right chest tube draining GASTROINTESTINAL: Abdomen soft, non-tender, nondistended. PD Cathetor MUSCULOSKELETAL: No cyanosis, or edema. BACK: Nontender without obvious deformity. No CVA tenderness. A/P Assessment and Plan Right pleural effusion S/P Chest tube placement ESRD on PD Atelactesis HTN GERD H/O Ca breast PLAN: Chest tube to suction Once pl fluid drianage decreased, will need pleurodesis On PD Stable on RA Pleural fluid cytology Negative Monitor chest tube drainage Pleurodesis by IR in AM Roel Calle MD Jan 16, 2017 17:23
[2017-01-16] MEDS: CALCITRIOL 0.25 MCG CAP PO SCH (18:32)
[2017-01-16 20:15] VITALS: BP 119/68; PULSE 76; RESP 17; TEMP 98.2; O2SAT 98
[2017-01-16] MEDS: SCOPOLAMINE 1.5 MG PATCH T-DERMAL SCH (21:28)
[2017-01-16] MEDS: REMOVE OLD SCOPOLAMINE PATCH T-DERMAL SCH (21:29)
[2017-01-16 23:35] VITALS: BP 125/67; PULSE 69; RESP 17; TEMP 97.4; O2SAT 100
[2017-01-17 04:15] VITALS: BP 152/70; PULSE 79; RESP 16; TEMP 97.6; O2SAT 100
[2017-01-17] MEDS: METOCLOPRAMIDE HCL 10 MG TAB PO SCH ×4 (07:00→21:00)
[2017-01-17 08:00] VITALS: BP 148/70; PULSE 80; RESP 20; TEMP 97.1; O2SAT 95
[2017-01-17] MEDS: METOPROLOL TARTRATE 50 MG TAB PO SCH ×2 (08:12→21:00)
[2017-01-17] MEDS: DOCUSATE SODIUM 50 MG/SENNA 8.6 MG TAB PO SCH ×2 (08:13→21:00)
[2017-01-17] MEDS: PANTOPRAZOLE SOD 20 MG DELAYED RELEASE TAB PO SCH (08:13)
[2017-01-17] MEDS: LISINOPRIL 5 MG TAB PO SCH ×2 (08:13→21:01)
[2017-01-17] MEDS: SEVELAMER CARBONATE 800 MG TAB PO SCH ×3 (08:13→17:11)
[2017-01-17] MEDS: VITAMIN B CMPLX/VITC/FOLIC AC CAP PO SCH (08:13)
[2017-01-17] MEDS: SODIUM CHLORIDE 0.9% FLUSH 10 ML FLUSH IV FLUSH SCH ×2 (08:13→21:01)
[2017-01-17 08:31] LABS: AUTOMATED NEUTROPHIL # 7.4 TH/MM3 (1.8-7.7); BASOPHIL # 0.2 TH/MM3 (0-0.2); BASOPHIL % 1.5 % (0.0-2.0); EOSINOPHIL # 0.4 TH/MM3 (0-0.4); EOSINOPHIL % 3.6 % (0.0-4.0); HEMATOCRIT 31.8 % (35.0-46.0); LYMPH % 15.6 % (9.0-44.0); LYMPHOCYTE # 1.6 TH/MM3 (1.0-4.8); MEAN CELL VOLUME 74.2 FL (80.0-100.0); MEAN CORPUSCULAR HEMOGLOBIN 22.7 PG (27.0-34.0); MEAN CORPUSCULAR HGB CONC 30.6 % (32.0-36.0); MONO % 7.8 % (0.0-8.0); NEUT % 71.5 % (16.0-70.0); PLATELET COUNT 324 TH/MM3 (150-450); RED BLOOD COUNT 4.29 MIL/MM3 (4.00-5.30); RED CELL DISTRIBUTION WIDTH 23.1 % (11.6-17.2); WHITE BLOOD COUNT 10.4 TH/MM3 (4.0-11.0)
[2017-01-17 08:37] LABS: HEMO FLAGS AUTO DIFF
[2017-01-17 09:05] LABS: ALKALINE PHOSPHATASE 128 U/L (45-117); ALT (GPT) 29 U/L (10-53); ANION GAP 7 MEQ/L (5-15); AST (GOT) 21 U/L (15-37); BICARBONATE 30.4 MEQ/L (21.0-32.0); BLOOD UREA NITROGEN 38 MG/DL (7-18); CHLORIDE 94 MEQ/L (98-107); GLOMERULAR FILTRATION RATE 5 ML/MIN (>89); POTASSIUM 5.3 MEQ/L (3.5-5.1); SODIUM (NA) 131 MEQ/L (136-145); TOTAL BILIRUBIN ADULT 0.3 MG/DL (0.2-1.0)
--- NOTE | 2017-01-17 09:54 | HHI.PR ---
Subjective History of Present Illness Patient same . high creatinine nephrology following. on hemodialysis better now still have right side chest tube in still draining fluid..once fluid drained out need pleurodehesis have hyperkalemia will monitor Review of Systems Constitutional Constitutional: Fatigue, Weakness Pulmonary Pulmonary Remarks right side chest tube in place. Vitals/Results Vital Signs Vital Signs Date Time Temp Pulse Resp B/P (MAP) Pulse Ox O2 Delivery O2 Flow Rate FiO2 01/17/17 08:00 97.1 80 20 148/70 (96) 95 01/17/17 04:15 97.6 79 16 152/70 (97) 100 01/16/17 23:35 97.4 69 17 125/67 (86) 100 01/16/17 21:40 21 01/16/17 20:15 98.2 76 17 119/68 (85) 98 01/16/17 14:26 96.7 72 16 117/60 (79) 100 01/16/17 12:00 96.6 67 17 134/73 (93) 100 CBC/BMP: 01/17/17 0809 01/17/17 0809 Lab Results Laboratory Tests Test 01/17/17 08:09 White Blood Count 10.4 TH/MM3 Red Blood Count 4.29 MIL/MM3 Hemoglobin 9.8 GM/DL Hematocrit 31.8 % Mean Corpuscular Volume 74.2 FL Mean Corpuscular Hemoglobin 22.7 PG Mean Corpuscular Hemoglobin Concent 30.6 % Red Cell Distribution Width 23.1 % Platelet Count 324 TH/MM3 Mean Platelet Volume 9.5 FL Neutrophils (%) (Auto) 71.5 % Lymphocytes (%) (Auto) 15.6 % Monocytes (%) (Auto) 7.8 % Eosinophils (%) (Auto) 3.6 % Basophils (%) (Auto) 1.5 % Neutrophils # (Auto) 7.4 TH/MM3 Lymphocytes # (Auto) 1.6 TH/MM3 Monocytes # (Auto) 0.8 TH/MM3 Eosinophils # (Auto) 0.4 TH/MM3 Basophils # (Auto) 0.2 TH/MM3 CBC Comment AUTO DIFF Blood Urea Nitrogen 38 MG/DL Creatinine 10.73 MG/DL Random Glucose 82 MG/DL Total Protein 6.4 GM/DL Albumin 2.2 GM/DL Calcium Level 8.5 MG/DL Alkaline Phosphatase 128 U/L Aspartate Amino Transf (AST/SGOT) 21 U/L Alanine Aminotransferase (ALT/SGPT) 29 U/L Total Bilirubin 0.3 MG/DL Sodium Level 131 MEQ/L Potassium Level 5.3 MEQ/L Chloride Level 94 MEQ/L Carbon Dioxide Level 30.4 MEQ/L Anion Gap 7 MEQ/L Estimat Glomerular Filtration Rate 5 ML/MIN Physical Exam General General Appearance: No Acute Distress, Comfortable Eyes Eye Exam: Sclera White, Extraocular Movement Intact Throat Throat Exam: Oral Mucosa [place] & Moist, Oral Pharynx Normal Neck Neck Exam: Neck Supple, Trachea Midline Pulmonary Resp Exam: Clear Bilaterally, Breath Sounds Equal, No Distress, Decreased Bases Resp Remarks Right side chest tube in. Cardiology CV Exam: Regular Chest/Breast Chest/Breast Remarks right side chest tube in place. Gastrointestinal/Abdomen GI Exam: Soft, Non-Tender, Bowel Sounds Present Musculoskeletal MS Exam: Joints Intact Integumentary Skin Exam: Warm, Dry Extremeties Extremities Exam: Trace Edema Neurologic Neuro Exam: Alert, Awake, Oriented, No Focal Deficits Psychiatric Psych Exam: Appropriate Responses PUD Prophylasis PUD Prophylaxis: Protonix Assessment/Plan Assessment/Plan Assessment and Plan Assessment and Plan Large right sided pleural effusion s/p right side chest tube placement still draining fluid Fluid once fluid drained out need pleurodehesis analysis negative for malignant cell. s/p CT scan of chest and chest x- ray. shows moderate left pleural effusion and Large right Hydropneumothorax with complex loculated component as well as pulmonary consolidation and possible rounded Atelectasis / mass pulmonary managing the patient. S/P Right lung collapse s/p chest tube in place End-stage renal disease was on peritoneal dialysis nephrology following, on hemodialysis now getting today. Anemia of chronic disease Resting dyspnea secondary to the pleural effusion..better after chest tube placement. Hypertension on home medicine will monitor blood pressure.+ Norvasc to 5 mg PO BID.+ Metoprolol. Oncologist and Offline Editor and pulmonary input noted Non sustained venticular tachycardia cardiology input noted on metoprolol Hyperkalemia will monitor. Discussed with patient. Check CBC with diff CMP in AM. Discussed Condition with: Patient Felipe Alvarado MD Jan 17, 2017 09:54
[2017-01-17 10:09] LABS: ACANTHOCYTES 1+ (NORMAL); OVALOCYTES 1+ (NORMAL); PLATELET ESTIMATE SMEAR NORMAL (NORMAL)
[2017-01-17 10:10] LABS: HELMET CELLS OCC (NORMAL); PLATELET MORPHOLOGY NORMAL (NORMAL); SCAN/DIFF AUTO DIFF CONFIRMED
[2017-01-17 11:45] VITALS: BP 154/78; PULSE 68; RESP 18; TEMP 96.8; O2SAT 100
[2017-01-17] MEDS: GELATIN 12 MM/7 MM FOAM TOP PRN (14:40)
[2017-01-17 16:00] VITALS: BP 150/81; PULSE 93; RESP 20; TEMP 98.6; O2SAT 92
--- NOTE | 2017-01-17 19:56 | HHI.PR ---
Subjective Remarks 56 YOAA female with ESRD on PD, pl eff, ca breast Had right chest tube placed No CP no Fever No SOB Chest tube still draining Objective Vital Signs Vital Signs Date Time Temp Pulse Resp B/P (MAP) Pulse Ox O2 Delivery O2 Flow Rate FiO2 01/17/17 16:00 98.6 93 20 150/81 (104) 92 01/17/17 11:45 96.8 68 18 154/78 (103) 100 01/17/17 08:00 97.1 80 20 148/70 (96) 95 01/17/17 04:15 97.6 79 16 152/70 (97) 100 01/16/17 23:35 97.4 69 17 125/67 (86) 100 01/16/17 21:40 21 01/16/17 20:15 98.2 76 17 119/68 (85) 98 I/O 01/16/17 01/16/17 01/16/17 01/17/17 01/17/17 01/17/17 07:00 15:00 23:00 07:00 15:00 23:00 Intake Total 960 ml 240 ml 480 ml Output Total 50 ml 20 ml 0 ml 60 ml 2680 ml 40 ml Balance -50 ml -20 ml 960 ml 180 ml -2200 ml -40 ml Intake Oral 960 ml 240 ml 480 ml Output Urine Total 0 ml 0 ml Stool Total 0 ml Chest Tube Drainage Total 50 ml 20 ml 60 ml 40 ml Hemodialysis 2680 ml # Voids 0 # Bowel Movements 0 0 Result Diagram: 01/17/17 0809 01/17/17 0809 Objective Remarks GENERAL: MBMN AA female,NAD SKIN: Warm and dry. HEAD: Normocephalic. EYES: No scleral icterus. No injection or drainage. NECK: Supple, trachea midline. No JVD or lymphadenopathy. CARDIOVASCULAR: Regular rate and rhythm without murmurs, gallops, or rubs. RESPIRATORY: Breath sounds equal bilaterally. No accessory muscle use. Right chest tube draining GASTROINTESTINAL: Abdomen soft, non-tender, nondistended. PD Cathetor MUSCULOSKELETAL: No cyanosis, or edema. BACK: Nontender without obvious deformity. No CVA tenderness. A/P Assessment and Plan Right pleural effusion S/P Chest tube placement ESRD on HD Atelactesis HTN GERD H/O Ca breast PLAN: Chest tube to suction Stable on RA Pleural fluid cytology Negative Monitor chest tube drainage Pleurodesis by IR when drainage <100 cc/24 hrs Roel Calle MD Jan 17, 2017 19:56
--- NOTE | 2017-01-17 19:59 | HHI.NPPN ---
Subjective History of Present Illness 56-year-old female with past medical history of hypertension, chronic anemia, history of breast cancer, end-stage renal disease on peritoneal dialysis, history of gastroesophageal reflux disease, history of GI bleeding came to the hospital referred by Dr. Maher her oncologist. The patient has this cough going on for the last five or six months and she had a chest CT done as an outpatient which showed that she has some pleural effusion and she was referred by her oncologist, Dr. Maher, to go to the hospital for possible thoracentesis. Additional Remarks Patient is alert, feeling better, no SOB, with chest tube, sen after HD. Review of Systems General Constitutional: Fatigue Respiratory Lungs: Cough Cardiovascular Cardiac: BACON Objective Data Data 01/17/17 01/18/17 19:00 07:00 Intake Total 480 ml Output Total 2720 ml Balance -2240 ml Intake Oral 480 ml Chest Tube Drainage Total 40 ml Hemodialysis 2680 ml # Voids 0 Vital Signs Date Time Temp Pulse Resp B/P (MAP) Pulse Ox O2 Delivery O2 Flow Rate FiO2 01/17/17 16:00 98.6 93 20 150/81 (104) 92 01/17/17 11:45 96.8 68 18 154/78 (103) 100 01/17/17 08:00 97.1 80 20 148/70 (96) 95 01/17/17 04:15 97.6 79 16 152/70 (97) 100 01/16/17 23:35 97.4 69 17 125/67 (86) 100 01/16/17 21:40 21 01/16/17 20:15 98.2 76 17 119/68 (85) 98 -: 01/17/17 0809 01/17/17 0809 Physical Exam General Appearance: No Acute Distress, Comfortable Eyes Eye Exam: Sclera White, Extraocular Movement Intact Throat Throat Exam: Oral Mucosa [place] & Moist, Oral Pharynx Normal Neck Neck Exam: Neck Supple, Trachea Midline Pulmonary Resp Exam: Clear Bilaterally, Breath Sounds Equal, No Distress, Decreased Bases Cardiology CV Exam: Regular Gastrointestinal/Abdomen GI Exam: Soft, Non-Tender, Bowel Sounds Present Musculoskeletal MS Exam: Joints Intact Integumentary Skin Exam: Warm, Dry Extremeties Extremities Exam: Trace Edema Neurologic Neuro Exam: Alert, Awake, Oriented, No Focal Deficits Psychiatric Psych Exam: Appropriate Responses PUD Prophylasis PUD Prophylaxis: Protonix Assessment/Plan Assessment Summary: Anemia of CKD, Hypertension, End Stage Renal Disease Problem List: (1) Pleural effusion, right ICD Codes: J90 - Pleural effusion, not elsewhere classified Status: Acute (2) Sinus tachycardia ICD Codes: R00.0 - Tachycardia, unspecified Status: Acute (3) Hypertension ICD Codes: I10 - Essential (primary) hypertension Status: Acute (4) Anemia of chronic kidney failure ICD Codes: N18.9 - Chronic kidney disease, unspecified; D63.1 - Anemia in chronic kidney disease Status: Acute (5) ESRD on peritoneal dialysis ICD Codes: N18.6 - End stage renal disease; Z99.2 - Dependence on renal dialysis Status: Acute Plan Right-sided chest tube. Pulmonary following. BP better On Percocet Hgb. is stable. started on HD and see if improve the Creatinine and Pleural effusion. Creatinine is better, Pulmonary following. Decreased fluid from the chest tube. Creatinine is much better with HD. Patient want to go for PD in long run. HD done and 2.6 liter removed. For pleurodesis. Problem Qualifiers (1) Hypertension: Qualified Codes: I10 - Essential (primary) hypertension (2) Anemia of chronic kidney failure: Brina Ernst MD Jan 17, 2017 19:59
[2017-01-17 20:45] VITALS: BP 111/62; PULSE 84; RESP 16; TEMP 98.7; O2SAT 95
[2017-01-18] VITALS (7 sets, daily range): BP systolic 113–137; BP diastolic 64–82; PULSE 71–87; RESP 16–18; TEMP 97.4–98.2; O2SAT 95–98
[2017-01-18] MEDS: METOCLOPRAMIDE HCL 10 MG TAB PO SCH ×5 (04:53→22:13)
[2017-01-18 06:08] LABS: BASOPHIL # 0.1 TH/MM3 (0-0.2); BASOPHIL % 1.3 % (0.0-2.0); EOSINOPHIL # 0.3 TH/MM3 (0-0.4); EOSINOPHIL % 3.9 % (0.0-4.0); HEMATOCRIT 31.6 % (35.0-46.0); LYMPH % 16.7 % (9.0-44.0); LYMPHOCYTE # 1.5 TH/MM3 (1.0-4.8); MEAN CELL VOLUME 74.6 FL (80.0-100.0); MEAN CORPUSCULAR HEMOGLOBIN 22.8 PG (27.0-34.0); MEAN CORPUSCULAR HGB CONC 30.5 % (32.0-36.0); MONO % 10.8 % (0.0-8.0); NEUT % 67.3 % (16.0-70.0); PLATELET COUNT 284 TH/MM3 (150-450); RED BLOOD COUNT 4.23 MIL/MM3 (4.00-5.30); RED CELL DISTRIBUTION WIDTH 23.6 % (11.6-17.2)
[2017-01-18 06:27] LABS: HEMO FLAGS AUTO DIFF
[2017-01-18 06:52] LABS: ALKALINE PHOSPHATASE 115 U/L (45-117); ALT (GPT) 24 U/L (10-53); ANION GAP 6 MEQ/L (5-15); AST (GOT) 16 U/L (15-37); BICARBONATE 32.3 MEQ/L (21.0-32.0); BLOOD UREA NITROGEN 26 MG/DL (7-18); CHLORIDE 97 MEQ/L (98-107); GLOMERULAR FILTRATION RATE 7 ML/MIN (>89); POTASSIUM 4.5 MEQ/L (3.5-5.1); SODIUM (NA) 135 MEQ/L (136-145); TOTAL BILIRUBIN ADULT 0.2 MG/DL (0.2-1.0)
[2017-01-18 08:37] LABS: ACANTHOCYTES OCC (NORMAL); KERATOCYTES OCC (NORMAL)
[2017-01-18 08:40] LABS: SCAN/DIFF AUTO DIFF CONFIRMED
[2017-01-18] MEDS: DOCUSATE SODIUM 50 MG/SENNA 8.6 MG TAB PO SCH ×2 (09:00→21:00)
[2017-01-18] MEDS: PANTOPRAZOLE SOD 20 MG DELAYED RELEASE TAB PO SCH (09:00)
[2017-01-18] MEDS: VITAMIN B CMPLX/VITC/FOLIC AC CAP PO SCH (09:03)
[2017-01-18] MEDS: SEVELAMER CARBONATE 800 MG TAB PO SCH ×3 (09:03→17:36)
[2017-01-18] MEDS: LISINOPRIL 5 MG TAB PO SCH ×2 (09:03→22:11)
[2017-01-18] MEDS: METOPROLOL TARTRATE 50 MG TAB PO SCH ×2 (09:03→22:09)
[2017-01-18] MEDS: SODIUM CHLORIDE 0.9% FLUSH 10 ML FLUSH IV FLUSH SCH ×2 (09:06→22:09)
--- NOTE | 2017-01-18 14:12 | PD.CARD.PN ---
Subjective Subjective Remarks The patient complained of some palpitations today that correlated with SVT. She denies CP or lightheadedness. Back to PD. CT remains to suction. Objective Medications Current Medications Medications (Trade) Dose Ordered Sig/Louie Route Start Time Stop Time Status Last Admin (Prinivil) 5 mg BID PO 12/27/16 21:00 01/18/17 09:03 (Nephrocaps) 1 cap DAILY PO 12/28/16 09:00 01/18/17 09:03 (Rocaltrol) 0.5 mcg MoWeFr@17 PO 12/28/16 17:00 01/16/17 18:32 (NS Flush) 2 ml UNSCH PRN IV FLUSH 12/27/16 15:30 01/10/17 18:33 (NS Flush) 2 ml BID IV FLUSH 12/27/16 21:00 01/18/17 09:06 (Tylenol) 650 mg Q4H PRN PO 12/27/16 15:30 01/13/17 19:33 (Narcan Inj) 0.4 mg UNSCH PRN IV 12/27/16 15:30 (Annie-Colace) 1 tab BID PO 12/27/16 21:00 01/13/17 08:01 (Milk Of Magnesia Liq) 30 ml Q12H PRN PO 12/27/16 15:30 (Senokot) 17.2 mg Q12H PRN PO 12/27/16 15:30 01/04/17 21:34 (Dulcolax Supp) 10 mg DAILY PRN RECTAL 12/27/16 15:30 (Lactulose Liq) 30 ml DAILY PRN PO 12/27/16 15:30 (Heparin Inj) 1,000 units WITH DIALYSIS PRN XX 12/28/16 17:15 (NS Flush) 10 ml UNSCH PRN IV FLUSH 12/28/16 17:15 (Lopressor) 50 mg BID PO 01/09/17 09:00 01/18/17 09:03 (Protonix) 20 mg DAILY PO 01/10/17 09:00 01/17/17 08:13 (Reglan) 5 mg ACHS PO 01/10/17 07:00 01/11/17 21:08 ([place] 10-325 Mg) 1 tab Q6H PRN PO 01/10/17 16:15 01/11/17 09:39 (Transderm-Scop 1.5 Mg Patch.72 Hr) 1 patch Q3D T-DERMAL 01/10/17 21:00 01/10/17 21:37 Miscellaneous Information 1 Q3D T-DERMAL 01/13/17 21:00 01/13/17 23:01 (Zofran Inj) 4 mg Q4H PRN IVP 01/10/17 21:00 01/10/17 22:01 Sodium Chloride 1,000 ml @ 0 mls/hr Q0M PRN OTHER 01/13/17 12:38 (Heparin Inj) 8,000 units UNSCH PRN IVF 01/13/17 12:45 Sodium Chloride 1,000 ml @ 200 mls/hr Q5H PRN IV 01/13/17 12:38 Sodium Chloride 1,000 ml @ 0 mls/hr Q0M PRN OTHER 01/13/17 12:38 (Mannitol Inj) 12.5 gm UNSCH PRN IV 01/13/17 12:45 (Albumin 25% Inj) 25 gm UNSCH PRN IV 01/13/17 12:45 (NS Flush) 5 ml UNSCH PRN IV FLUSH 01/13/17 12:45 (Heparin Inj) UNSCH PRN .XX 01/13/17 12:45 (Gentamicin (Dialysis) Inj) 20 mg UNSCH PRN IV 01/13/17 12:45 (Zofran Inj) 4 mg UNSCH PRN IV 01/13/17 12:45 (Tylenol) 650 mg UNSCH PRN PO 01/13/17 12:45 (Benadryl) 25 mg UNSCH PRN PO 01/13/17 12:45 (Nitrostat Sl) 0.4 mg UNSCH PRN SL 01/13/17 12:45 (Catapres) 0.1 mg UNSCH PRN PO 01/13/17 12:45 (Gelfoam 12 Mm/7 Mm Top) 1 foam UNSCH PRN TOP 01/13/17 12:45 01/17/17 14:40 (Renvela) 3,200 mg TIDAC PO 01/14/17 12:00 01/18/17 13:01 (Duoneb Neb) 1 ampule Q8HR NEB PRN NEB 01/15/17 16:15 Vital Signs / I&O Vital Signs Date Time Temp Pulse Resp B/P (MAP) Pulse Ox O2 Delivery O2 Flow Rate FiO2 01/18/17 08:00 97.9 80 18 135/69 (91) 98 01/18/17 04:00 Room Air 01/18/17 03:45 98.2 73 16 122/82 (95) 98 01/18/17 00:25 97.6 80 16 137/66 (89) 95 01/18/17 00:00 Room Air 01/17/17 20:45 98.7 84 16 111/62 (78) 95 01/17/17 20:00 Room Air 01/17/17 16:00 98.6 93 20 150/81 (104) 92 I/O 01/17/17 01/17/17 01/17/17 01/18/17 01/18/17 01/18/17 07:00 15:00 23:00 07:00 15:00 23:00 Intake Total 240 ml 480 ml 360 ml 240 ml Output Total 60 ml 2680 ml 40 ml 40 ml Balance 180 ml -2200 ml 320 ml 200 ml Intake Oral 240 ml 480 ml 360 ml 240 ml Output Urine Total 0 ml Chest Tube Drainage Total 60 ml 40 ml 40 ml Hemodialysis 2680 ml # Voids 0 0 0 # Bowel Movements 0 1 0 Physical Exam GENERAL: Thin AA female SKIN: Warm and dry. HEAD: Normocephalic. EYES: No scleral icterus. No injection or drainage. NECK: Supple, trachea midline. CARDIOVASCULAR: Regular rate and rhythm without murmurs, gallops, or rubs. Left arm AV fistula RESPIRATORY: Breath sounds equal bilaterally. No accessory muscle use. Chest tube no air leak GASTROINTESTINAL: Abdomen soft, non-tender, nondistended. MUSCULOSKELETAL: No cyanosis, or edema. BACK: Nontender without obvious deformity. No CVA tenderness. Laboratory Laboratory Tests Test 01/18/17 05:45 White Blood Count 9.0 TH/MM3 Red Blood Count 4.23 MIL/MM3 Hemoglobin 9.6 GM/DL Hematocrit 31.6 % Mean Corpuscular Volume 74.6 FL Mean Corpuscular Hemoglobin 22.8 PG Mean Corpuscular Hemoglobin Concent 30.5 % Red Cell Distribution Width 23.6 % Platelet Count 284 TH/MM3 Mean Platelet Volume 9.3 FL Neutrophils (%) (Auto) 67.3 % Lymphocytes (%) (Auto) 16.7 % Monocytes (%) (Auto) 10.8 % Eosinophils (%) (Auto) 3.9 % Basophils (%) (Auto) 1.3 % Neutrophils # (Auto) 6.0 TH/MM3 Lymphocytes # (Auto) 1.5 TH/MM3 Monocytes # (Auto) 1.0 TH/MM3 Eosinophils # (Auto) 0.3 TH/MM3 Basophils # (Auto) 0.1 TH/MM3 CBC Comment AUTO DIFF Differential Comment AUTO DIFF CONFIRMED Acanthocytes OCC Keratocytes OCC Blood Urea Nitrogen 26 MG/DL Creatinine 7.36 MG/DL Random Glucose 92 MG/DL Total Protein 6.3 GM/DL Albumin 2.2 GM/DL Calcium Level 8.3 MG/DL Alkaline Phosphatase 115 U/L Aspartate Amino Transf (AST/SGOT) 16 U/L Alanine Aminotransferase (ALT/SGPT) 24 U/L Total Bilirubin 0.2 MG/DL Sodium Level 135 MEQ/L Potassium Level 4.5 MEQ/L Chloride Level 97 MEQ/L Carbon Dioxide Level 32.3 MEQ/L Anion Gap 6 MEQ/L Estimat Glomerular Filtration Rate 7 ML/MIN Assessment and Plan Problem List: (1) Wide-complex tachycardia ICD Codes: I47.2 - Ventricular tachycardia (2) Pleural effusion, right ICD Codes: J90 - Pleural effusion, not elsewhere classified Status: Acute (3) ESRD on peritoneal dialysis ICD Codes: N18.6 - End stage renal disease; Z99.2 - Dependence on renal dialysis Status: Acute (4) Anemia of chronic kidney failure ICD Codes: N18.9 - Chronic kidney disease, unspecified; D63.1 - Anemia in chronic kidney disease Status: Acute (5) Hypertension ICD Codes: I10 - Essential (primary) hypertension Status: Acute (6) Sinus tachycardia ICD Codes: R00.0 - Tachycardia, unspecified Status: Acute Assessment and Plan Increase metoprolol. Patient seen and evaluated by Dr Trevino who completed face to face encounter and physical exam and participated in evaluation and management. Problem Qualifiers (1) Anemia of chronic kidney failure: (2) Hypertension: Qualified Codes: I10 - Essential (primary) hypertension Soraya Garrett Jan 18, 2017 14:12
--- NOTE | 2017-01-18 16:44 | HHI.NPPN ---
Subjective History of Present Illness 56-year-old female with past medical history of hypertension, chronic anemia, history of breast cancer, end-stage renal disease on peritoneal dialysis, history of gastroesophageal reflux disease, history of GI bleeding came to the hospital referred by Dr. Maher her oncologist. The patient has this cough going on for the last five or six months and she had a chest CT done as an outpatient which showed that she has some pleural effusion and she was referred by her oncologist, Dr. Maher, to go to the hospital for possible thoracentesis. Additional Remarks Patient is alert, feeling better, no SOB, with chest tube, clinically same, not in distress. Review of Systems General Constitutional: Fatigue Respiratory Lungs: Cough Cardiovascular Cardiac: BACON Objective Data Data Vital Signs Date Time Temp Pulse Resp B/P (MAP) Pulse Ox O2 Delivery O2 Flow Rate FiO2 01/18/17 12:00 97.5 75 18 130/71 (90) 96 01/18/17 08:00 97.9 80 18 135/69 (91) 98 01/18/17 04:00 Room Air 01/18/17 03:45 98.2 73 16 122/82 (95) 98 01/18/17 00:25 97.6 80 16 137/66 (89) 95 01/18/17 00:00 Room Air 01/17/17 20:45 98.7 84 16 111/62 (78) 95 01/17/17 20:00 Room Air -: 01/18/17 0545 01/18/17 0545 Physical Exam General Appearance: No Acute Distress, Comfortable Eyes Eye Exam: Sclera White, Extraocular Movement Intact Throat Throat Exam: Oral Mucosa [place] & Moist, Oral Pharynx Normal Neck Neck Exam: Neck Supple, Trachea Midline Pulmonary Resp Exam: Clear Bilaterally, Breath Sounds Equal, No Distress, Decreased Bases Cardiology CV Exam: Regular Gastrointestinal/Abdomen GI Exam: Soft, Non-Tender, Bowel Sounds Present Musculoskeletal MS Exam: Joints Intact Integumentary Skin Exam: Warm, Dry Extremeties Extremities Exam: Trace Edema Neurologic Neuro Exam: Alert, Awake, Oriented, No Focal Deficits Psychiatric Psych Exam: Appropriate Responses PUD Prophylasis PUD Prophylaxis: Protonix Assessment/Plan Assessment Summary: Anemia of CKD, Hypertension, End Stage Renal Disease Problem List: (1) Pleural effusion, right ICD Codes: J90 - Pleural effusion, not elsewhere classified Status: Acute (2) Sinus tachycardia ICD Codes: R00.0 - Tachycardia, unspecified Status: Acute (3) Hypertension ICD Codes: I10 - Essential (primary) hypertension Status: Acute (4) Anemia of chronic kidney failure ICD Codes: N18.9 - Chronic kidney disease, unspecified; D63.1 - Anemia in chronic kidney disease Status: Acute (5) ESRD on peritoneal dialysis ICD Codes: N18.6 - End stage renal disease; Z99.2 - Dependence on renal dialysis Status: Acute Plan Right-sided chest tube. Pulmonary following. BP better On Percocet Hgb. is stable. started on HD and see if improve the Creatinine and Pleural effusion. Creatinine is better, Pulmonary following. Decreased fluid from the chest tube. Creatinine is much better with HD. Patient want to go for PD in long run. HD done yesterday. I D/W Dr. Calle, will continue HD until get Pleurodesis. HD again in AM. Problem Qualifiers (1) Hypertension: Qualified Codes: I10 - Essential (primary) hypertension (2) Anemia of chronic kidney failure: Brina Ernst MD Jan 18, 2017 16:44
[2017-01-18] MEDS: CALCITRIOL 0.25 MCG CAP PO SCH (17:37)
--- NOTE | 2017-01-18 17:48 | HHI.PR ---
Subjective Remarks 56 YOAA female with ESRD on PD, pl eff, ca breast Had right chest tube placed No CP no Fever No SOB Chest tube drained 80 cc Objective Vital Signs Vital Signs Date Time Temp Pulse Resp B/P (MAP) Pulse Ox O2 Delivery O2 Flow Rate FiO2 01/18/17 12:00 97.5 75 18 130/71 (90) 96 01/18/17 08:00 97.9 80 18 135/69 (91) 98 01/18/17 04:00 Room Air 01/18/17 03:45 98.2 73 16 122/82 (95) 98 01/18/17 00:25 97.6 80 16 137/66 (89) 95 01/18/17 00:00 Room Air 01/17/17 20:45 98.7 84 16 111/62 (78) 95 01/17/17 20:00 Room Air I/O 01/17/17 01/17/17 01/17/17 01/18/17 01/18/17 01/18/17 07:00 15:00 23:00 07:00 15:00 23:00 Intake Total 240 ml 480 ml 360 ml 240 ml Output Total 60 ml 2680 ml 40 ml 40 ml Balance 180 ml -2200 ml 320 ml 200 ml Intake Oral 240 ml 480 ml 360 ml 240 ml Output Urine Total 0 ml Chest Tube Drainage Total 60 ml 40 ml 40 ml Hemodialysis 2680 ml # Voids 0 0 0 # Bowel Movements 0 1 0 Result Diagram: 01/18/17 0545 01/18/17 0545 Objective Remarks GENERAL: MBMN AA female,NAD SKIN: Warm and dry. HEAD: Normocephalic. EYES: No scleral icterus. No injection or drainage. NECK: Supple, trachea midline. No JVD or lymphadenopathy. CARDIOVASCULAR: Regular rate and rhythm without murmurs, gallops, or rubs. RESPIRATORY: Breath sounds equal bilaterally. No accessory muscle use. Right chest tube draining GASTROINTESTINAL: Abdomen soft, non-tender, nondistended. PD Cathetor MUSCULOSKELETAL: No cyanosis, or edema. BACK: Nontender without obvious deformity. No CVA tenderness. A/P Assessment and Plan Right pleural effusion S/P Chest tube placement ESRD on HD Atelactesis HTN GERD H/O Ca breast PLAN: Chest tube to suction Stable on RA Pleural fluid cytology Negative Monitor chest tube drainage Pleurodesis by IR DW i Aneja,Roel Dev MD Jan 18, 2017 17:48
[2017-01-19] VITALS: BP 154/73; PULSE 82; RESP 16; TEMP 98; O2SAT 96
[2017-01-19 04:00] VITALS: BP 159/76; PULSE 77; RESP 16; TEMP 97.8; O2SAT 97
[2017-01-19 07:10] VITALS: PULSE 75
[2017-01-19 08:00] VITALS: BP 143/76; PULSE 75; RESP 17; TEMP 97.8; O2SAT 99
[2017-01-19] MEDS: LISINOPRIL 5 MG TAB PO SCH ×2 (08:08→21:39)
[2017-01-19] MEDS: VITAMIN B CMPLX/VITC/FOLIC AC CAP PO SCH (08:08)
[2017-01-19] MEDS: SEVELAMER CARBONATE 800 MG TAB PO SCH ×3 (08:08→18:05)
[2017-01-19] MEDS: METOPROLOL TARTRATE 50 MG TAB PO SCH ×3 (08:09→18:05)
[2017-01-19] MEDS: METOCLOPRAMIDE HCL 10 MG TAB PO SCH ×3 (08:13→21:00)
[2017-01-19] MEDS: PANTOPRAZOLE SOD 20 MG DELAYED RELEASE TAB PO SCH (08:13)
[2017-01-19] MEDS: DOCUSATE SODIUM 50 MG/SENNA 8.6 MG TAB PO SCH ×2 (08:15→21:00)
[2017-01-19] MEDS: SODIUM CHLORIDE 0.9% FLUSH 10 ML FLUSH IV FLUSH SCH ×2 (08:15→21:41)
--- NOTE | 2017-01-19 10:06 | PD.CARD.PN ---
Subjective Subjective Remarks Patient seen in dialysis. The patient denies palpitations, SOB, CP or lightheadedness. tele shows 6 beat run NSVT. Objective Medications Current Medications Medications (Trade) Dose Ordered Sig/Louie Route Start Time Stop Time Status Last Admin (Prinivil) 5 mg BID PO 12/27/16 21:00 01/19/17 08:08 (Nephrocaps) 1 cap DAILY PO 12/28/16 09:00 01/19/17 08:08 (Rocaltrol) 0.5 mcg MoWeFr@17 PO 12/28/16 17:00 01/18/17 17:37 (NS Flush) 2 ml UNSCH PRN IV FLUSH 12/27/16 15:30 01/10/17 18:33 (NS Flush) 2 ml BID IV FLUSH 12/27/16 21:00 01/19/17 08:15 (Tylenol) 650 mg Q4H PRN PO 12/27/16 15:30 01/13/17 19:33 (Narcan Inj) 0.4 mg UNSCH PRN IV 12/27/16 15:30 (Annie-Colace) 1 tab BID PO 12/27/16 21:00 01/13/17 08:01 (Milk Of Magnesia Liq) 30 ml Q12H PRN PO 12/27/16 15:30 (Senokot) 17.2 mg Q12H PRN PO 12/27/16 15:30 01/04/17 21:34 (Dulcolax Supp) 10 mg DAILY PRN RECTAL 12/27/16 15:30 (Lactulose Liq) 30 ml DAILY PRN PO 12/27/16 15:30 (Heparin Inj) 1,000 units WITH DIALYSIS PRN XX 12/28/16 17:15 (NS Flush) 10 ml UNSCH PRN IV FLUSH 12/28/16 17:15 (Protonix) 20 mg DAILY PO 01/10/17 09:00 01/17/17 08:13 (Reglan) 5 mg ACHS PO 01/10/17 07:00 01/11/17 21:08 ([place] 10-325 Mg) 1 tab Q6H PRN PO 01/10/17 16:15 01/11/17 09:39 (Transderm-Scop 1.5 Mg Patch.72 Hr) 1 patch Q3D T-DERMAL 01/10/17 21:00 01/10/17 21:37 Miscellaneous Information 1 Q3D T-DERMAL 01/13/17 21:00 01/13/17 23:01 (Zofran Inj) 4 mg Q4H PRN IVP 01/10/17 21:00 01/10/17 22:01 Sodium Chloride 1,000 ml @ 0 mls/hr Q0M PRN OTHER 01/13/17 12:38 (Heparin Inj) 8,000 units UNSCH PRN IVF 01/13/17 12:45 Sodium Chloride 1,000 ml @ 200 mls/hr Q5H PRN IV 01/13/17 12:38 Sodium Chloride 1,000 ml @ 0 mls/hr Q0M PRN OTHER 01/13/17 12:38 (Mannitol Inj) 12.5 gm UNSCH PRN IV 01/13/17 12:45 (Albumin 25% Inj) 25 gm UNSCH PRN IV 01/13/17 12:45 (NS Flush) 5 ml UNSCH PRN IV FLUSH 01/13/17 12:45 (Heparin Inj) UNSCH PRN .XX 01/13/17 12:45 (Gentamicin (Dialysis) Inj) 20 mg UNSCH PRN IV 01/13/17 12:45 (Zofran Inj) 4 mg UNSCH PRN IV 01/13/17 12:45 (Tylenol) 650 mg UNSCH PRN PO 01/13/17 12:45 (Benadryl) 25 mg UNSCH PRN PO 01/13/17 12:45 (Nitrostat Sl) 0.4 mg UNSCH PRN SL 01/13/17 12:45 (Catapres) 0.1 mg UNSCH PRN PO 01/13/17 12:45 (Gelfoam 12 Mm/7 Mm Top) 1 foam UNSCH PRN TOP 01/13/17 12:45 01/17/17 14:40 (Renvela) 3,200 mg TIDAC PO 01/14/17 12:00 01/19/17 08:08 (Duoneb Neb) 1 ampule Q8HR NEB PRN NEB 01/15/17 16:15 (Lopressor) 50 mg TID PO 01/19/17 13:00 Vital Signs / I&O Vital Signs Date Time Temp Pulse Resp B/P (MAP) Pulse Ox O2 Delivery O2 Flow Rate FiO2 01/19/17 08:00 97.8 75 17 143/76 (98) 99 01/19/17 04:00 97.8 77 16 159/76 (103) 97 01/19/17 00:00 98.0 82 16 154/73 (100) 96 01/18/17 21:03 97 21 01/18/17 20:00 86 01/18/17 20:00 Room Air 01/18/17 19:00 97.4 87 17 126/64 (84) 97 01/18/17 12:00 97.5 75 18 130/71 (90) 96 I/O 01/18/17 01/18/17 01/18/17 01/19/17 01/19/17 01/19/17 07:00 15:00 23:00 07:00 15:00 23:00 Intake Total 240 ml 600 ml 480 ml 250 ml Output Total 40 ml 150 ml 130 ml Balance 200 ml 600 ml 330 ml 120 ml Intake Oral 240 ml 600 ml 480 ml 250 ml Chest Tube Drainage Total 40 ml 150 ml 130 ml # Voids 0 0 3 3 # Bowel Movements 0 1 0 0 Physical Exam GENERAL: Thin AA female SKIN: Warm and dry. HEAD: Normocephalic. EYES: No scleral icterus. No injection or drainage. NECK: Supple, trachea midline. CARDIOVASCULAR: Regular rate and rhythm without murmurs, gallops, or rubs. Left arm AV fistula, undergoing HD now RESPIRATORY: Breath sounds equal bilaterally. No accessory muscle use. Chest tube GASTROINTESTINAL: Abdomen soft, non-tender, nondistended. MUSCULOSKELETAL: No cyanosis, or edema. BACK: Nontender without obvious deformity. No CVA tenderness. Assessment and Plan Problem List: (1) Wide-complex tachycardia ICD Codes: I47.2 - Ventricular tachycardia (2) Pleural effusion, right ICD Codes: J90 - Pleural effusion, not elsewhere classified Status: Acute (3) ESRD on peritoneal dialysis ICD Codes: N18.6 - End stage renal disease; Z99.2 - Dependence on renal dialysis Status: Acute (4) Anemia of chronic kidney failure ICD Codes: N18.9 - Chronic kidney disease, unspecified; D63.1 - Anemia in chronic kidney disease Status: Acute (5) Hypertension ICD Codes: I10 - Essential (primary) hypertension Status: Acute (6) Sinus tachycardia ICD Codes: R00.0 - Tachycardia, unspecified Status: Acute Assessment and Plan Metoprolol 50 mg TID Awaiting pleurodesis once CT output < 100. HD resumed today. The patient is stable from a cardiac standpoint. We will sign off. Reconsult with acute changes. Patient seen and evaluated by Dr Trevino who completed face to face encounter and physical exam and participated in evaluation and management. Problem Qualifiers (1) Anemia of chronic kidney failure: (2) Hypertension: Qualified Codes: I10 - Essential (primary) hypertension Soraya Garrett Jan 19, 2017 10:06
[2017-01-19] MEDS: GELATIN 12 MM/7 MM FOAM TOP PRN (12:03)
[2017-01-19] MEDS: SODIUM CHLOR 0.9% 1000 ML INJ 1,000 ML OTHER PRN (12:03)
--- NOTE | 2017-01-19 12:24 | HHI.NPPN ---
Subjective History of Present Illness 56-year-old female with past medical history of hypertension, chronic anemia, history of breast cancer, end-stage renal disease on peritoneal dialysis, history of gastroesophageal reflux disease, history of GI bleeding came to the hospital referred by Dr. Maher her oncologist. The patient has this cough going on for the last five or six months and she had a chest CT done as an outpatient which showed that she has some pleural effusion and she was referred by her oncologist, Dr. Maher, to go to the hospital for possible thoracentesis. Additional Remarks Patient is alert, feeling better, no SOB, with chest tube, seen after HD. Review of Systems General Constitutional: Fatigue Respiratory Lungs: Cough Cardiovascular Cardiac: BACON Objective Data Data Vital Signs Date Time Temp Pulse Resp B/P (MAP) Pulse Ox O2 Delivery O2 Flow Rate FiO2 01/19/17 08:00 97.8 75 17 143/76 (98) 99 01/19/17 07:10 75 01/19/17 04:00 97.8 77 16 159/76 (103) 97 01/19/17 00:00 98.0 82 16 154/73 (100) 96 01/18/17 21:03 97 21 01/18/17 20:00 86 01/18/17 20:00 Room Air 01/18/17 19:00 97.4 87 17 126/64 (84) 97 -: 01/18/17 0545 01/18/17 0545 Physical Exam General Appearance: No Acute Distress, Comfortable Eyes Eye Exam: Sclera White, Extraocular Movement Intact Throat Throat Exam: Oral Mucosa [place] & Moist, Oral Pharynx Normal Neck Neck Exam: Neck Supple, Trachea Midline Pulmonary Resp Exam: Clear Bilaterally, Breath Sounds Equal, No Distress, Decreased Bases Cardiology CV Exam: Regular Gastrointestinal/Abdomen GI Exam: Soft, Non-Tender, Bowel Sounds Present Musculoskeletal MS Exam: Joints Intact Integumentary Skin Exam: Warm, Dry Extremeties Extremities Exam: Trace Edema Neurologic Neuro Exam: Alert, Awake, Oriented, No Focal Deficits Psychiatric Psych Exam: Appropriate Responses PUD Prophylasis PUD Prophylaxis: Protonix Assessment/Plan Assessment Summary: Anemia of CKD, Hypertension, End Stage Renal Disease Problem List: (1) Pleural effusion, right ICD Codes: J90 - Pleural effusion, not elsewhere classified Status: Acute (2) Sinus tachycardia ICD Codes: R00.0 - Tachycardia, unspecified Status: Acute (3) Hypertension ICD Codes: I10 - Essential (primary) hypertension Status: Acute (4) Anemia of chronic kidney failure ICD Codes: N18.9 - Chronic kidney disease, unspecified; D63.1 - Anemia in chronic kidney disease Status: Acute (5) ESRD on peritoneal dialysis ICD Codes: N18.6 - End stage renal disease; Z99.2 - Dependence on renal dialysis Status: Acute Plan Right-sided chest tube. Pulmonary following. BP better On Percocet Hgb. is stable. started on HD and see if improve the Creatinine and Pleural effusion. Creatinine is better, Pulmonary following. Decreased fluid from the chest tube. Creatinine is much better with HD. Patient want to go for PD in long run. HD done today, tolerated well. I D/W Dr. Calle, will continue HD until get Pleurodesis. Continue HD for now TTS. Problem Qualifiers (1) Hypertension: Qualified Codes: I10 - Essential (primary) hypertension (2) Anemia of chronic kidney failure: Brina Ernst MD Jan 19, 2017 12:24
[2017-01-19 16:00] VITALS: BP 115/64; PULSE 75; RESP 18; TEMP 97.6; O2SAT 99
--- NOTE | 2017-01-19 16:56 | HHI.PR ---
Subjective Remarks 56 YOAA female with ESRD on PD, pl eff, ca breast Had right chest tube placed No CP no Fever No SOB Chest tube drained 280 cc Objective Vital Signs Vital Signs Date Time Temp Pulse Resp B/P (MAP) Pulse Ox O2 Delivery O2 Flow Rate FiO2 01/19/17 16:00 97.6 75 18 115/64 (81) 99 01/19/17 08:00 97.8 75 17 143/76 (98) 99 01/19/17 07:10 75 01/19/17 04:00 97.8 77 16 159/76 (103) 97 01/19/17 00:00 98.0 82 16 154/73 (100) 96 01/18/17 21:03 97 21 01/18/17 20:00 86 01/18/17 20:00 Room Air 01/18/17 19:00 97.4 87 17 126/64 (84) 97 I/O 01/18/17 01/18/17 01/18/17 01/19/17 01/19/17 01/19/17 07:00 15:00 23:00 07:00 15:00 23:00 Intake Total 240 ml 600 ml 480 ml 250 ml Output Total 40 ml 150 ml 130 ml 2100 ml Balance 200 ml 600 ml 330 ml 120 ml -2100 ml Intake Oral 240 ml 600 ml 480 ml 250 ml Chest Tube Drainage Total 40 ml 150 ml 130 ml 100 ml Hemodialysis 2000 ml # Voids 0 0 3 3 # Bowel Movements 0 1 0 0 Result Diagram: 01/18/17 0545 01/18/17 0545 Objective Remarks GENERAL: MBMN AA female,NAD SKIN: Warm and dry. HEAD: Normocephalic. EYES: No scleral icterus. No injection or drainage. NECK: Supple, trachea midline. No JVD or lymphadenopathy. CARDIOVASCULAR: Regular rate and rhythm without murmurs, gallops, or rubs. RESPIRATORY: Breath sounds equal bilaterally. No accessory muscle use. Right chest tube draining GASTROINTESTINAL: Abdomen soft, non-tender, nondistended. PD Cathetor MUSCULOSKELETAL: No cyanosis, or edema. BACK: Nontender without obvious deformity. No CVA tenderness. A/P Assessment and Plan Right pleural effusion S/P Chest tube placement ESRD on HD Atelactesis HTN GERD H/O Ca breast PLAN: Chest tube to suction Stable on RA Pleural fluid cytology Negative Monitor chest tube drainage Pleurodesis by IR when drainage decreases DW Roel Manriquez MD Jan 19, 2017 16:56
--- NOTE | 2017-01-19 19:18 | HHI.PR ---
Subjective History of Present Illness Patient seen and examined on 01/18/17. high creatinine nephrology following. on hemodialysis better now still have right side chest tube in still draining fluid..once fluid drained out need pleurodehesis have hyperkalemia resolved. Review of Systems Constitutional Constitutional: Fatigue, Weakness Pulmonary Pulmonary Remarks right side chest tube in place. Vitals/Results Intake & Output 01/19/17 01/19/17 01/20/17 15:00 23:00 07:00 Output Total 2100 ml Balance -2100 ml Chest Tube Drainage Total 100 ml Hemodialysis 2000 ml Vital Signs Vital Signs Date Time Temp Pulse Resp B/P (MAP) Pulse Ox O2 Delivery O2 Flow Rate FiO2 01/19/17 16:00 97.6 75 18 115/64 (81) 99 01/19/17 08:00 97.8 75 17 143/76 (98) 99 01/19/17 07:10 75 01/19/17 04:00 97.8 77 16 159/76 (103) 97 01/19/17 00:00 98.0 82 16 154/73 (100) 96 01/18/17 21:03 97 21 01/18/17 20:00 86 01/18/17 20:00 Room Air CBC/BMP: 01/18/17 0545 01/18/17 0545 Physical Exam General General Appearance: No Acute Distress, Comfortable Eyes Eye Exam: Sclera White, Extraocular Movement Intact Throat Throat Exam: Oral Mucosa [place] & Moist, Oral Pharynx Normal Neck Neck Exam: Neck Supple, Trachea Midline Pulmonary Resp Exam: Clear Bilaterally, Breath Sounds Equal, No Distress, Decreased Bases Resp Remarks Right side chest tube in. Cardiology CV Exam: Regular Chest/Breast Chest/Breast Remarks right side chest tube in place. Gastrointestinal/Abdomen GI Exam: Soft, Non-Tender, Bowel Sounds Present Musculoskeletal MS Exam: Joints Intact Integumentary Skin Exam: Warm, Dry Extremeties Extremities Exam: Trace Edema Neurologic Neuro Exam: Alert, Awake, Oriented, No Focal Deficits Psychiatric Psych Exam: Appropriate Responses PUD Prophylasis PUD Prophylaxis: Protonix Assessment/Plan Assessment/Plan Assessment and Plan Assessment and Plan Large right sided pleural effusion s/p right side chest tube placement still draining fluid Fluid once fluid drained out need pleurodehesis analysis negative for malignant cell. s/p CT scan of chest and chest x- ray. shows moderate left pleural effusion and Large right Hydropneumothorax with complex loculated component as well as pulmonary consolidation and possible rounded Atelectasis / mass pulmonary managing the patient. S/P Right lung collapse s/p chest tube in place End-stage renal disease was on peritoneal dialysis nephrology following, on hemodialysis Anemia of chronic disease Resting dyspnea secondary to the pleural effusion..better after chest tube placement. Hypertension on home medicine will monitor blood pressure.+ Norvasc to 5 mg PO BID.+ Metoprolol. Oncologist and Project/Production Manager Imaging and pulmonary input noted Non sustained venticular tachycardia cardiology input noted on metoprolol Hyperkalemia resolved. Discussed with patient. Check CBC with diff CMP in AM. Discussed Condition with: Patient Felipe Alvarado MD Jan 19, 2017 19:18
--- NOTE | 2017-01-19 19:18 | HHI.PR ---
Subjective History of Present Illness Patient seen on 01/19/17. high creatinine nephrology following. on hemodialysis better now still have right side chest tube in still draining fluid..once fluid drained out need pleurodehesis Review of Systems Constitutional Constitutional: Fatigue, Weakness Pulmonary Pulmonary Remarks right side chest tube in place. Vitals/Results Intake & Output 01/19/17 01/19/17 01/20/17 15:00 23:00 07:00 Output Total 2100 ml Balance -2100 ml Chest Tube Drainage Total 100 ml Hemodialysis 2000 ml Vital Signs Vital Signs Date Time Temp Pulse Resp B/P (MAP) Pulse Ox O2 Delivery O2 Flow Rate FiO2 01/19/17 16:00 97.6 75 18 115/64 (81) 99 01/19/17 08:00 97.8 75 17 143/76 (98) 99 01/19/17 07:10 75 01/19/17 04:00 97.8 77 16 159/76 (103) 97 01/19/17 00:00 98.0 82 16 154/73 (100) 96 01/18/17 21:03 97 21 01/18/17 20:00 86 01/18/17 20:00 Room Air CBC/BMP: 01/18/17 0545 01/18/17 0545 Physical Exam General General Appearance: No Acute Distress, Comfortable Eyes Eye Exam: Sclera White, Extraocular Movement Intact Throat Throat Exam: Oral Mucosa [place] & Moist, Oral Pharynx Normal Neck Neck Exam: Neck Supple, Trachea Midline Pulmonary Resp Exam: Clear Bilaterally, Breath Sounds Equal, No Distress, Decreased Bases Resp Remarks Right side chest tube in. Cardiology CV Exam: Regular Chest/Breast Chest/Breast Remarks right side chest tube in place. Gastrointestinal/Abdomen GI Exam: Soft, Non-Tender, Bowel Sounds Present Musculoskeletal MS Exam: Joints Intact Integumentary Skin Exam: Warm, Dry Extremeties Extremities Exam: Trace Edema Neurologic Neuro Exam: Alert, Awake, Oriented, No Focal Deficits Psychiatric Psych Exam: Appropriate Responses PUD Prophylasis PUD Prophylaxis: Protonix Assessment/Plan Assessment/Plan Assessment and Plan Assessment and Plan Large right sided pleural effusion s/p right side chest tube placement still draining fluid Fluid once fluid drained out need pleurodehesis analysis negative for malignant cell. s/p CT scan of chest and chest x- ray. shows moderate left pleural effusion and Large right Hydropneumothorax with complex loculated component as well as pulmonary consolidation and possible rounded Atelectasis / mass pulmonary managing the patient. S/P Right lung collapse s/p chest tube in place End-stage renal disease was on peritoneal dialysis nephrology following, on hemodialysis now getting today. Anemia of chronic disease Resting dyspnea secondary to the pleural effusion..better after chest tube placement. Hypertension on home medicine will monitor blood pressure.+ Norvasc to 5 mg PO BID.+ Metoprolol. Oncologist and Poultry Eviscerator and pulmonary input noted Non sustained venticular tachycardia cardiology input noted on metoprolol Hyperkalemia resolved. Discussed with patient. Check CBC with diff CMP in AM. Discussed Condition with: Patient Felipe Alvarado MD Jan 19, 2017 19:18
[2017-01-19 20:00] VITALS: BP 152/72; PULSE 75; RESP 16; TEMP 97.1; O2SAT 96
[2017-01-19] MEDS: REMOVE OLD SCOPOLAMINE PATCH T-DERMAL SCH (21:00)
[2017-01-19] MEDS: SCOPOLAMINE 1.5 MG PATCH T-DERMAL SCH (21:00)
[2017-01-20] VITALS (7 sets, daily range): BP systolic 124–149; BP diastolic 69–80; PULSE 70–83; RESP 16–20; TEMP 96.4–99; O2SAT 98–100
[2017-01-20] MEDS: ACETAMINOPHEN 325 MG TAB PO PRN (04:26)
[2017-01-20] MEDS: METOCLOPRAMIDE HCL 10 MG TAB PO SCH ×5 (04:27→20:02)
[2017-01-20] MEDS: PANTOPRAZOLE SOD 20 MG DELAYED RELEASE TAB PO SCH (09:00)
[2017-01-20] MEDS: DOCUSATE SODIUM 50 MG/SENNA 8.6 MG TAB PO SCH ×2 (09:00→19:55)
[2017-01-20 09:48] LABS: AUTOMATED NEUTROPHIL # 6.5 TH/MM3 (1.8-7.7); BASOPHIL # 0.1 TH/MM3 (0-0.2); EOSINOPHIL # 0.5 TH/MM3 (0-0.4); EOSINOPHIL % 5.1 % (0.0-4.0); LYMPH % 16.3 % (9.0-44.0); LYMPHOCYTE # 1.5 TH/MM3 (1.0-4.8); MEAN CELL VOLUME 75.2 FL (80.0-100.0); MEAN CORPUSCULAR HEMOGLOBIN 23.2 PG (27.0-34.0); MEAN CORPUSCULAR HGB CONC 30.8 % (32.0-36.0); MONO % 8.6 % (0.0-8.0); PLATELET COUNT 224 TH/MM3 (150-450); RED BLOOD COUNT 3.99 MIL/MM3 (4.00-5.30); RED CELL DISTRIBUTION WIDTH 22.7 % (11.6-17.2); WHITE BLOOD COUNT 9.4 TH/MM3 (4.0-11.0)
[2017-01-20 09:49] LABS: HEMO FLAGS AUTO DIFF
[2017-01-20] MEDS: SEVELAMER CARBONATE 800 MG TAB PO SCH ×3 (09:50→18:40)
[2017-01-20] MEDS: VITAMIN B CMPLX/VITC/FOLIC AC CAP PO SCH (09:50)
[2017-01-20] MEDS: SODIUM CHLORIDE 0.9% FLUSH 10 ML FLUSH IV FLUSH SCH ×2 (09:51→19:58)
[2017-01-20] MEDS: METOPROLOL TARTRATE 50 MG TAB PO SCH ×3 (09:51→18:40)
[2017-01-20] MEDS: LISINOPRIL 5 MG TAB PO SCH ×2 (09:51→19:57)
[2017-01-20 10:10] LABS: ANION GAP 6 MEQ/L (5-15); AST (GOT) 13 U/L (15-37); BICARBONATE 30.9 MEQ/L (21.0-32.0); BLOOD UREA NITROGEN 26 MG/DL (7-18); CHLORIDE 95 MEQ/L (98-107); GLOMERULAR FILTRATION RATE 8 ML/MIN (>89); POTASSIUM 4.9 MEQ/L (3.5-5.1); SODIUM (NA) 132 MEQ/L (136-145)
[2017-01-20 10:12] LABS: ALT (GPT) 20 U/L (10-53)
[2017-01-20 10:13] LABS: ALKALINE PHOSPHATASE 92 U/L (45-117); TOTAL BILIRUBIN ADULT 0.2 MG/DL (0.2-1.0)
--- NOTE | 2017-01-20 10:46 | HHI.PR ---
Subjective Remarks 56 YOAA female with ESRD on PD, pl eff, ca breast Had right chest tube placed No CP no Fever No SOB Chest tube drained 200 cc Objective Vital Signs Vital Signs Date Time Temp Pulse Resp B/P (MAP) Pulse Ox O2 Delivery O2 Flow Rate FiO2 01/20/17 08:00 96.7 70 16 129/70 (89) 100 01/20/17 04:00 Room Air 01/20/17 04:00 98.3 83 17 149/80 (103) 99 01/20/17 00:00 97.9 72 16 138/69 (92) 98 01/20/17 00:00 Room Air 01/19/17 20:00 Room Air 01/19/17 20:00 97.1 75 16 152/72 (98) 96 01/19/17 16:00 97.6 75 18 115/64 (81) 99 I/O 01/19/17 01/19/17 01/19/17 01/20/17 01/20/17 01/20/17 07:00 15:00 23:00 07:00 15:00 23:00 Intake Total 250 ml 720 ml 480 ml Output Total 130 ml 2100 ml 100 ml Balance 120 ml -2100 ml 720 ml 380 ml Intake Oral 250 ml 720 ml 480 ml Chest Tube Drainage Total 130 ml 100 ml 100 ml Hemodialysis 2000 ml # Voids 3 # Bowel Movements 0 Result Diagram: 01/20/1785101/20/17 08 Objective Remarks GENERAL: MBMN AA female,NAD SKIN: Warm and dry. HEAD: Normocephalic. EYES: No scleral icterus. No injection or drainage. NECK: Supple, trachea midline. No JVD or lymphadenopathy. CARDIOVASCULAR: Regular rate and rhythm without murmurs, gallops, or rubs. RESPIRATORY: Breath sounds equal bilaterally. No accessory muscle use. Right chest tube draining GASTROINTESTINAL: Abdomen soft, non-tender, nondistended. PD Cathetor MUSCULOSKELETAL: No cyanosis, or edema. BACK: Nontender without obvious deformity. No CVA tenderness. A/P Assessment and Plan Right pleural effusion S/P Chest tube placement ESRD on HD Atelactesis HTN GERD H/O Ca breast PLAN: Chest tube to suction Stable on RA Pleural fluid cytology Negative Monitor chest tube drainage Pleurodesis by IR when drainage decreases Dr Vásquez covering until Monday Roel Calle MD Jan 20, 2017 10:46
--- NOTE | 2017-01-20 11:23 | HHI.PR ---
Subjective History of Present Illness Patient have high creatinine nephrology following. on hemodialysis better now still have right side chest tube in still draining fluid..once fluid drained out need pleurodehesis d/w NILAY Glass. Review of Systems Constitutional Constitutional: Fatigue, Weakness Pulmonary Pulmonary Remarks right side chest tube in place. Vitals/Results Vital Signs Vital Signs Date Time Temp Pulse Resp B/P (MAP) Pulse Ox O2 Delivery O2 Flow Rate FiO2 01/20/17 08:00 96.7 70 16 129/70 (89) 100 01/20/17 04:00 Room Air 01/20/17 04:00 98.3 83 17 149/80 (103) 99 01/20/17 00:00 97.9 72 16 138/69 (92) 98 01/20/17 00:00 Room Air 01/19/17 20:00 Room Air 01/19/17 20:00 97.1 75 16 152/72 (98) 96 01/19/17 16:00 97.6 75 18 115/64 (81) 99 CBC/BMP: 01/20/17 0852 01/20/17 0852 Lab Results Laboratory Tests Test 01/20/17 08:52 White Blood Count 9.4 TH/MM3 Red Blood Count 3.99 MIL/MM3 Hemoglobin 9.3 GM/DL Hematocrit 30.0 % Mean Corpuscular Volume 75.2 FL Mean Corpuscular Hemoglobin 23.2 PG Mean Corpuscular Hemoglobin Concent 30.8 % Red Cell Distribution Width 22.7 % Platelet Count 224 TH/MM3 Mean Platelet Volume 9.1 FL Neutrophils (%) (Auto) 69.0 % Lymphocytes (%) (Auto) 16.3 % Monocytes (%) (Auto) 8.6 % Eosinophils (%) (Auto) 5.1 % Basophils (%) (Auto) 1.0 % Neutrophils # (Auto) 6.5 TH/MM3 Lymphocytes # (Auto) 1.5 TH/MM3 Monocytes # (Auto) 0.8 TH/MM3 Eosinophils # (Auto) 0.5 TH/MM3 Basophils # (Auto) 0.1 TH/MM3 CBC Comment AUTO DIFF Blood Urea Nitrogen 26 MG/DL Creatinine 6.54 MG/DL Random Glucose 76 MG/DL Total Protein 5.9 GM/DL Albumin 2.1 GM/DL Calcium Level 8.4 MG/DL Alkaline Phosphatase 92 U/L Aspartate Amino Transf (AST/SGOT) 13 U/L Alanine Aminotransferase (ALT/SGPT) 20 U/L Total Bilirubin 0.2 MG/DL Sodium Level 132 MEQ/L Potassium Level 4.9 MEQ/L Chloride Level 95 MEQ/L Carbon Dioxide Level 30.9 MEQ/L Anion Gap 6 MEQ/L Estimat Glomerular Filtration Rate 8 ML/MIN Physical Exam General General Appearance: No Acute Distress, Comfortable Eyes Eye Exam: Sclera White, Extraocular Movement Intact Throat Throat Exam: Oral Mucosa [place] & Moist, Oral Pharynx Normal Neck Neck Exam: Neck Supple, Trachea Midline Pulmonary Resp Exam: Clear Bilaterally, Breath Sounds Equal, No Distress, Decreased Bases Resp Remarks Right side chest tube in. Cardiology CV Exam: Regular Chest/Breast Chest/Breast Remarks right side chest tube in place. Gastrointestinal/Abdomen GI Exam: Soft, Non-Tender, Bowel Sounds Present Musculoskeletal MS Exam: Joints Intact Integumentary Skin Exam: Warm, Dry Extremeties Extremities Exam: Trace Edema Neurologic Neuro Exam: Alert, Awake, Oriented, No Focal Deficits Psychiatric Psych Exam: Appropriate Responses PUD Prophylasis PUD Prophylaxis: Protonix Assessment/Plan Assessment/Plan Assessment and Plan Assessment and Plan Large right sided pleural effusion s/p right side chest tube placement still draining fluid Fluid once fluid drained out need pleurodehesis analysis negative for malignant cell. s/p CT scan of chest and chest x- ray. shows moderate left pleural effusion and Large right Hydropneumothorax with complex loculated component as well as pulmonary consolidation and possible rounded Atelectasis / mass pulmonary managing the patient. S/P Right lung collapse s/p chest tube in place End-stage renal disease was on peritoneal dialysis nephrology following, on hemodialysis now getting today. Anemia of chronic disease Resting dyspnea secondary to the pleural effusion..better after chest tube placement. Hypertension on home medicine will monitor blood pressure.+ Norvasc to 5 mg PO BID.+ Metoprolol. 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 Discussed with patient. Check CBC with diff CMP in AM. Discussed Condition with: Patient Felipe Alvarado MD Jan 20, 2017 11:23
[2017-01-20 14:38] LABS: HELMET CELLS OCC (NORMAL); OVALOCYTES 1+ (NORMAL)
[2017-01-20 14:39] LABS: ACANTHOCYTES 1+ (NORMAL)
[2017-01-20 14:40] LABS: SCAN/DIFF AUTO DIFF CONFIRMED
--- NOTE | 2017-01-20 15:52 | HHI.NPPN ---
Subjective History of Present Illness 56-year-old female with past medical history of hypertension, chronic anemia, history of breast cancer, end-stage renal disease on peritoneal dialysis, history of gastroesophageal reflux disease, history of GI bleeding came to the hospital referred by Dr. Maher her oncologist. The patient has this cough going on for the last five or six months and she had a chest CT done as an outpatient which showed that she has some pleural effusion and she was referred by her oncologist, Dr. Maher, to go to the hospital for possible thoracentesis. Additional Remarks Patient is alert, feeling better, no SOB, with chest tube, not in distress. Review of Systems General Constitutional: Fatigue Respiratory Lungs: Cough Cardiovascular Cardiac: BACON Objective Data Data Vital Signs Date Time Temp Pulse Resp B/P (MAP) Pulse Ox O2 Delivery O2 Flow Rate FiO2 01/20/17 12:00 96.4 73 16 128/73 (91) 99 01/20/17 08:00 96.7 70 16 129/70 (89) 100 01/20/17 04:00 Room Air 01/20/17 04:00 98.3 83 17 149/80 (103) 99 01/20/17 00:00 97.9 72 16 138/69 (92) 98 01/20/17 00:00 Room Air 01/19/17 20:00 Room Air 01/19/17 20:00 97.1 75 16 152/72 (98) 96 01/19/17 16:00 97.6 75 18 115/64 (81) 99 -: 01/20/17 0852 01/20/17 0852 Physical Exam General Appearance: No Acute Distress, Comfortable Eyes Eye Exam: Sclera White, Extraocular Movement Intact Throat Throat Exam: Oral Mucosa [place] & Moist, Oral Pharynx Normal Neck Neck Exam: Neck Supple, Trachea Midline Pulmonary Resp Exam: Clear Bilaterally, Breath Sounds Equal, No Distress, Decreased Bases Cardiology CV Exam: Regular Gastrointestinal/Abdomen GI Exam: Soft, Non-Tender, Bowel Sounds Present Musculoskeletal MS Exam: Joints Intact Integumentary Skin Exam: Warm, Dry Extremeties Extremities Exam: Trace Edema Neurologic Neuro Exam: Alert, Awake, Oriented, No Focal Deficits Psychiatric Psych Exam: Appropriate Responses PUD Prophylasis PUD Prophylaxis: Protonix Assessment/Plan Assessment Summary: Anemia of CKD, Hypertension, End Stage Renal Disease Problem List: (1) Pleural effusion, right ICD Codes: J90 - Pleural effusion, not elsewhere classified Status: Acute (2) Sinus tachycardia ICD Codes: R00.0 - Tachycardia, unspecified Status: Acute (3) Hypertension ICD Codes: I10 - Essential (primary) hypertension Status: Acute (4) Anemia of chronic kidney failure ICD Codes: N18.9 - Chronic kidney disease, unspecified; D63.1 - Anemia in chronic kidney disease Status: Acute (5) ESRD on peritoneal dialysis ICD Codes: N18.6 - End stage renal disease; Z99.2 - Dependence on renal dialysis Status: Acute Plan Right-sided chest tube. Pulmonary following. BP better On Percocet Hgb. is stable. started on HD and see if improve the Creatinine and Pleural effusion. Creatinine is better, Pulmonary following. Decreased fluid from the chest tube. Creatinine is much better with HD. Patient want to go for PD in long run. I D/W Dr. Calle, will continue HD until get Pleurodesis. Continue HD for now TTS. HD will be in AM. After Pleurodesis will consider PD again. Problem Qualifiers (1) Hypertension: Qualified Codes: I10 - Essential (primary) hypertension (2) Anemia of chronic kidney failure: Brina Ernst MD Jan 20, 2017 15:52
[2017-01-20] MEDS: CALCITRIOL 0.25 MCG CAP PO SCH (20:28)
[2017-01-21] VITALS (8 sets, daily range): BP systolic 108–164; BP diastolic 55–89; PULSE 73–80; RESP 16–18; TEMP 97.1–99; O2SAT 96–100
[2017-01-21] MEDS: SEVELAMER CARBONATE 800 MG TAB PO SCH ×3 (07:34→17:12)
[2017-01-21] MEDS: METOPROLOL TARTRATE 50 MG TAB PO SCH ×3 (07:36→17:12)
[2017-01-21] MEDS: LISINOPRIL 5 MG TAB PO SCH ×2 (07:36→20:54)
[2017-01-21] MEDS: PANTOPRAZOLE SOD 20 MG DELAYED RELEASE TAB PO SCH (07:36)
[2017-01-21] MEDS: VITAMIN B CMPLX/VITC/FOLIC AC CAP PO SCH (07:36)
[2017-01-21] MEDS: DOCUSATE SODIUM 50 MG/SENNA 8.6 MG TAB PO SCH ×2 (07:36→20:56)
[2017-01-21] MEDS: SODIUM CHLORIDE 0.9% FLUSH 10 ML FLUSH IV FLUSH SCH ×2 (07:38→20:56)
--- NOTE | 2017-01-21 09:47 | HHI.NPPN ---
Subjective History of Present Illness 56-year-old female with past medical history of hypertension, chronic anemia, history of breast cancer, end-stage renal disease on peritoneal dialysis, history of gastroesophageal reflux disease, history of GI bleeding came to the hospital referred by Dr. Maher her oncologist. The patient has this cough going on for the last five or six months and she had a chest CT done as an outpatient which showed that she has some pleural effusion and she was referred by her oncologist, Dr. Maher, to go to the hospital for possible thoracentesis. Additional Remarks Patient is alert, feeling better, no SOB, with chest tube, not in distress. Review of Systems General Constitutional: Fatigue Respiratory Lungs: Cough Cardiovascular Cardiac: BACON Objective Data Data Vital Signs Date Time Temp Pulse Resp B/P (MAP) Pulse Ox O2 Delivery O2 Flow Rate FiO2 01/21/17 07:31 97.8 77 16 164/89 (114) 99 01/21/17 04:00 98.4 78 18 158/84 (108) 96 01/21/17 00:00 98.9 76 18 147/83 (104) 99 01/20/17 21:13 Room Air 01/20/17 20:04 74 01/20/17 20:00 99.0 76 20 124/72 (89) 98 01/20/17 16:36 97.3 72 16 132/74 (93) 100 01/20/17 12:00 96.4 73 16 128/73 (91) 99 -: 01/20/17 0852 01/20/17 0852 Physical Exam General Appearance: No Acute Distress, Comfortable Eyes Eye Exam: Sclera White, Extraocular Movement Intact Throat Throat Exam: Oral Mucosa [place] & Moist, Oral Pharynx Normal Neck Neck Exam: Neck Supple, Trachea Midline Pulmonary Resp Exam: Clear Bilaterally, Breath Sounds Equal, No Distress, Decreased Bases Cardiology CV Exam: Regular Gastrointestinal/Abdomen GI Exam: Soft, Non-Tender, Bowel Sounds Present Musculoskeletal MS Exam: Joints Intact Integumentary Skin Exam: Warm, Dry Extremeties Extremities Exam: Trace Edema Neurologic Neuro Exam: Alert, Awake, Oriented, No Focal Deficits Psychiatric Psych Exam: Appropriate Responses PUD Prophylasis PUD Prophylaxis: Protonix Assessment/Plan Assessment Summary: Anemia of CKD, Hypertension, End Stage Renal Disease Problem List: (1) Pleural effusion, right ICD Codes: J90 - Pleural effusion, not elsewhere classified Status: Acute (2) Sinus tachycardia ICD Codes: R00.0 - Tachycardia, unspecified Status: Acute (3) Hypertension ICD Codes: I10 - Essential (primary) hypertension Status: Acute (4) Anemia of chronic kidney failure ICD Codes: N18.9 - Chronic kidney disease, unspecified; D63.1 - Anemia in chronic kidney disease Status: Acute (5) ESRD on peritoneal dialysis ICD Codes: N18.6 - End stage renal disease; Z99.2 - Dependence on renal dialysis Status: Acute Plan Right-sided chest tube. Pulmonary following. BP better On Percocet Hgb. is stable. started on HD and see if improve the Creatinine and Pleural effusion. Creatinine is better, Pulmonary following. Decreased fluid from the chest tube. Creatinine is much better with HD. she is seen during dialysis UF 2 kg 2 k BATH She will have Pleurodesis next week Problem Qualifiers (1) Hypertension: Qualified Codes: I10 - Essential (primary) hypertension (2) Anemia of chronic kidney failure: Camille Kovacs MD Jan 21, 2017 09:47
--- NOTE | 2017-01-21 10:22 | HHI.PR ---
Subjective History of Present Illness Patient have high creatinine nephrology following. on hemodialysis better now getting hemodialysis today. still have right side chest tube in still draining fluid..once fluid drained out need pleurodehesis Review of Systems Constitutional Constitutional: Fatigue, Weakness Pulmonary Pulmonary Remarks right side chest tube in place. Vitals/Results Vital Signs Vital Signs Date Time Temp Pulse Resp B/P (MAP) Pulse Ox O2 Delivery O2 Flow Rate FiO2 01/21/17 07:31 97.8 77 16 164/89 (114) 99 01/21/17 04:00 98.4 78 18 158/84 (108) 96 01/21/17 00:00 98.9 76 18 147/83 (104) 99 01/20/17 21:13 Room Air 01/20/17 20:04 74 01/20/17 20:00 99.0 76 20 124/72 (89) 98 01/20/17 16:36 97.3 72 16 132/74 (93) 100 01/20/17 12:00 96.4 73 16 128/73 (91) 99 CBC/BMP: 01/20/17 0852 01/20/17 0852 Physical Exam General General Appearance: No Acute Distress, Comfortable Eyes Eye Exam: Sclera White, Extraocular Movement Intact Throat Throat Exam: Oral Mucosa [place] & Moist, Oral Pharynx Normal Neck Neck Exam: Neck Supple, Trachea Midline Pulmonary Resp Exam: Clear Bilaterally, Breath Sounds Equal, No Distress, Decreased Bases Resp Remarks Right side chest tube in. Cardiology CV Exam: Regular Chest/Breast Chest/Breast Remarks right side chest tube in place. Gastrointestinal/Abdomen GI Exam: Soft, Non-Tender, Bowel Sounds Present Musculoskeletal MS Exam: Joints Intact Integumentary Skin Exam: Warm, Dry Extremeties Extremities Exam: Trace Edema Neurologic Neuro Exam: Alert, Awake, Oriented, No Focal Deficits Psychiatric Psych Exam: Appropriate Responses PUD Prophylasis PUD Prophylaxis: Protonix Assessment/Plan Assessment/Plan Assessment and Plan Assessment and Plan Large right sided pleural effusion s/p right side chest tube placement still draining fluid Fluid once fluid drained out need pleurodehesis analysis negative for malignant cell. s/p CT scan of chest and chest x- ray. shows moderate left pleural effusion and Large right Hydropneumothorax with complex loculated component as well as pulmonary consolidation and possible rounded Atelectasis / mass pulmonary managing the patient. S/P Right lung collapse s/p chest tube in place End-stage renal disease was on peritoneal dialysis nephrology following, on hemodialysis now getting today. Anemia of chronic disease Resting dyspnea secondary to the pleural effusion..better after chest tube placement. Hypertension on home medicine will monitor blood pressure.+ Norvasc to 5 mg PO BID.+ Metoprolol. 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 Discussed with patient. Check CBC with diff CMP in AM. Discussed Condition with: Patient Felipe Alvarado MD Jan 21, 2017 10:22
[2017-01-21] MEDS: METOCLOPRAMIDE HCL 10 MG TAB PO SCH ×3 (10:29→20:56)
--- NOTE | 2017-01-21 13:26 | HHI.PR ---
Subjective Remarks Alert NO SOB Chest tube in place Objective Vital Signs Date Time Temp Pulse Resp B/P (MAP) Pulse Ox O2 Delivery O2 Flow Rate FiO2 01/21/17 12:13 98.3 80 16 141/71 (94) 98 01/21/17 07:31 97.8 77 16 164/89 (114) 99 01/21/17 04:00 98.4 78 18 158/84 (108) 96 01/21/17 00:00 98.9 76 18 147/83 (104) 99 01/20/17 21:13 Room Air 01/20/17 20:04 74 01/20/17 20:00 99.0 76 20 124/72 (89) 98 01/20/17 16:36 97.3 72 16 132/74 (93) 100 I/O 01/20/17 01/20/17 01/20/17 01/21/17 01/21/17 01/21/17 07:00 15:00 23:00 07:00 15:00 23:00 Intake Total 480 ml 600 ml 240 ml Output Total 100 ml 0 ml 2500 ml Balance 380 ml 600 ml 0 ml 240 ml -2500 ml Intake Oral 480 ml 600 ml 240 ml Chest Tube Drainage Total 100 ml 0 ml Hemodialysis 2500 ml # Voids 1 0 # Bowel Movements 0 1 Result Diagram: 01/20/17 0852 01/20/17 0852 Objective Remarks GENERAL: SKIN: Warm and dry. HEAD: Atraumatic. Normocephalic. EYES: Pupils equal and round. No scleral icterus. No injection or drainage. ENT: No nasal bleeding or discharge. Mucous membranes pink and moist. NECK: Trachea midline. No JVD. CARDIOVASCULAR: Regular rate and rhythm. RESPIRATORY: decrease breath sounds right base GASTROINTESTINAL: Abdomen soft, non-tender, nondistended. Hepatic and splenic margins not palpable. MUSCULOSKELETAL: Extremities without clubbing, cyanosis, or edema. No obvious deformities. NEUROLOGICAL: Awake and alert. No obvious cranial nerve deficits. Motor grossly within normal limits. Five out of 5 muscle strength in the arms and legs. Normal speech. PSYCHIATRIC: Appropriate mood and affect; insight and judgment normal. Assessment and Plan Assessment and Plan pleural effusion negative cytology renal failure on dialysis breast CA PLAN PLEURODESIS BEFORE CHEST TUBE REMOVAL INCREASE ACTIVITY Thalia Vásquez MD Jan 21, 2017 13:26
[2017-01-21 21:09] LABS: AUTOMATED NEUTROPHIL # 7.2 TH/MM3 (1.8-7.7); BASOPHIL # 0.1 TH/MM3 (0-0.2); BASOPHIL % 0.7 % (0.0-2.0); EOSINOPHIL # 0.4 TH/MM3 (0-0.4); EOSINOPHIL % 3.7 % (0.0-4.0); HEMATOCRIT 30.7 % (35.0-46.0); MEAN CELL VOLUME 74.3 FL (80.0-100.0); MEAN CORPUSCULAR HGB CONC 30.9 % (32.0-36.0); MONO % 8.6 % (0.0-8.0); PLATELET COUNT 206 TH/MM3 (150-450); RED BLOOD COUNT 4.13 MIL/MM3 (4.00-5.30); RED CELL DISTRIBUTION WIDTH 23.4 % (11.6-17.2); WHITE BLOOD COUNT 9.5 TH/MM3 (4.0-11.0)
[2017-01-21 21:10] LABS: HEMO FLAGS AUTO DIFF
[2017-01-21 21:25] LABS: ALKALINE PHOSPHATASE 98 U/L (45-117); ALT (GPT) 21 U/L (10-53); ANION GAP 7 MEQ/L (5-15); AST (GOT) 14 U/L (15-37); BICARBONATE 35.9 MEQ/L (21.0-32.0); BLOOD UREA NITROGEN 22 MG/DL (7-18); CHLORIDE 93 MEQ/L (98-107); GLOMERULAR FILTRATION RATE 10 ML/MIN (>89); POTASSIUM 4.6 MEQ/L (3.5-5.1); SODIUM (NA) 136 MEQ/L (136-145); TOTAL BILIRUBIN ADULT 0.2 MG/DL (0.2-1.0)
[2017-01-21 22:18] LABS: KERATOCYTES 1+ (NORMAL); OVALOCYTES 1+ (NORMAL); PLATELET ESTIMATE SMEAR NORMAL (NORMAL); PLATELET MORPHOLOGY NORMAL (NORMAL); SCAN/DIFF AUTO DIFF CONFIRMED
[2017-01-22 04:05] VITALS: BP 147/73; PULSE 74; RESP 17; TEMP 98.8; O2SAT 96
[2017-01-22] MEDS: METOCLOPRAMIDE HCL 10 MG TAB PO SCH ×4 (05:27→22:22)
[2017-01-22 08:00] VITALS: BP 154/83; PULSE 78; RESP 16; TEMP 98.2; O2SAT 98
[2017-01-22 08:19] LABS: AUTOMATED NEUTROPHIL # 8.4 TH/MM3 (1.8-7.7); BASOPHIL # 0.1 TH/MM3 (0-0.2); BASOPHIL % 0.9 % (0.0-2.0); EOSINOPHIL # 0.4 TH/MM3 (0-0.4); EOSINOPHIL % 3.2 % (0.0-4.0); LYMPH % 12.8 % (9.0-44.0); LYMPHOCYTE # 1.4 TH/MM3 (1.0-4.8); MEAN CORPUSCULAR HEMOGLOBIN 23.3 PG (27.0-34.0); MEAN CORPUSCULAR HGB CONC 31.1 % (32.0-36.0); MONO % 8.1 % (0.0-8.0); PLATELET COUNT 199 TH/MM3 (150-450); RED CELL DISTRIBUTION WIDTH 23.8 % (11.6-17.2); WHITE BLOOD COUNT 11.2 TH/MM3 (4.0-11.0)
[2017-01-22] MEDS: DOCUSATE SODIUM 50 MG/SENNA 8.6 MG TAB PO SCH ×2 (08:20→22:22)
[2017-01-22 08:21] LABS: HEMO FLAGS AUTO DIFF
[2017-01-22] MEDS: METOPROLOL TARTRATE 50 MG TAB PO SCH ×3 (08:43→16:51)
[2017-01-22] MEDS: SEVELAMER CARBONATE 800 MG TAB PO SCH ×3 (08:43→16:52)
--- NOTE | 2017-01-22 08:43 | HHI.PR ---
Subjective History of Present Illness Patient have high creatinine nephrology following. on hemodialysis better now getting hemodialysis. still have right side chest tube in still draining fluid..once fluid drained out need pleurodehesis Review of Systems Constitutional Constitutional: Fatigue, Weakness Pulmonary Pulmonary Remarks right side chest tube in place. Vitals/Results Vital Signs Vital Signs Date Time Temp Pulse Resp B/P (MAP) Pulse Ox O2 Delivery O2 Flow Rate FiO2 01/22/17 04:05 98.8 74 17 147/73 (97) 96 01/21/17 23:30 97.1 73 18 127/67 (87) 97 01/21/17 20:37 99.0 78 18 129/70 (89) 99 01/21/17 16:00 98.0 77 16 108/55 (72) 96 01/21/17 12:13 98.3 80 16 141/71 (94) 98 01/21/17 12:00 98.3 80 16 141/71 (94) 100 CBC/BMP: 01/22/17 0719 01/21/174 Lab Results Laboratory Tests Test 01/21/17 20:34 01/22/17 07:19 White Blood Count 9.5 TH/MM3 11.2 TH/MM3 Red Blood Count 4.13 MIL/MM3 4.00 MIL/MM3 Hemoglobin 9.5 GM/DL 9.3 GM/DL Hematocrit 30.7 % 30.0 % Mean Corpuscular Volume 74.3 FL 75.0 FL Mean Corpuscular Hemoglobin 23.0 PG 23.3 PG Mean Corpuscular Hemoglobin Concent 30.9 % 31.1 % Red Cell Distribution Width 23.4 % 23.8 % Platelet Count 206 TH/MM3 199 TH/MM3 Mean Platelet Volume 8.9 FL 10.0 FL Neutrophils (%) (Auto) 76.0 % 75.0 % Lymphocytes (%) (Auto) 11.0 % 12.8 % Monocytes (%) (Auto) 8.6 % 8.1 % Eosinophils (%) (Auto) 3.7 % 3.2 % Basophils (%) (Auto) 0.7 % 0.9 % Neutrophils # (Auto) 7.2 TH/MM3 8.4 TH/MM3 Lymphocytes # (Auto) 1.0 TH/MM3 1.4 TH/MM3 Monocytes # (Auto) 0.8 TH/MM3 0.9 TH/MM3 Eosinophils # (Auto) 0.4 TH/MM3 0.4 TH/MM3 Basophils # (Auto) 0.1 TH/MM3 0.1 TH/MM3 CBC Comment AUTO DIFF AUTO DIFF Differential Comment AUTO DIFF CONFIRMED Platelet Estimate NORMAL Platelet Morphology Comment NORMAL Ovalocytes 1+ Keratocytes 1+ Blood Urea Nitrogen 22 MG/DL Creatinine 5.53 MG/DL Random Glucose 116 MG/DL Total Protein 6.4 GM/DL Albumin 2.3 GM/DL Calcium Level 8.2 MG/DL Alkaline Phosphatase 98 U/L Aspartate Amino Transf (AST/SGOT) 14 U/L Alanine Aminotransferase (ALT/SGPT) 21 U/L Total Bilirubin 0.2 MG/DL Sodium Level 136 MEQ/L Potassium Level 4.6 MEQ/L Chloride Level 93 MEQ/L Carbon Dioxide Level 35.9 MEQ/L Anion Gap 7 MEQ/L Estimat Glomerular Filtration Rate 10 ML/MIN Physical Exam General General Appearance: No Acute Distress, Comfortable Eyes Eye Exam: Sclera White, Extraocular Movement Intact Throat Throat Exam: Oral Mucosa [place] & Moist, Oral Pharynx Normal Neck Neck Exam: Neck Supple, Trachea Midline Pulmonary Resp Exam: Clear Bilaterally, Breath Sounds Equal, No Distress, Decreased Bases Resp Remarks Right side chest tube in. Cardiology CV Exam: Regular Chest/Breast Chest/Breast Remarks right side chest tube in place. Gastrointestinal/Abdomen GI Exam: Soft, Non-Tender, Bowel Sounds Present Musculoskeletal MS Exam: Joints Intact Integumentary Skin Exam: Warm, Dry Extremeties Extremities Exam: Trace Edema Neurologic Neuro Exam: Alert, Awake, Oriented, No Focal Deficits Psychiatric Psych Exam: Appropriate Responses PUD Prophylasis PUD Prophylaxis: Protonix Assessment/Plan Assessment/Plan Assessment and Plan Assessment and Plan Large right sided pleural effusion s/p right side chest tube placement still draining fluid Fluid once fluid drained out need pleurodehesis analysis negative for malignant cell. s/p CT scan of chest and chest x- ray. shows moderate left pleural effusion and Large right Hydropneumothorax with complex loculated component as well as pulmonary consolidation and possible rounded Atelectasis / mass pulmonary managing the patient. S/P Right lung collapse s/p chest tube in place End-stage renal disease was on peritoneal dialysis nephrology following, on hemodialysis now Anemia of chronic disease Resting dyspnea secondary to the pleural effusion..better after chest tube placement. Hypertension on home medicine will monitor blood pressure.+ Norvasc to 5 mg PO BID.+ Metoprolol. Oncologist and [employer] and pulmonary input noted Non sustained venticular tachycardia cardiology input noted on metoprolol Hyperkalemia resolved. Discussed with patient. Check CBC with diff CMP in AM. Discussed Condition with: Patient Felipe Alvarado MD Jan 22, 2017 08:43
[2017-01-22] MEDS: VITAMIN B CMPLX/VITC/FOLIC AC CAP PO SCH (08:44)
[2017-01-22] MEDS: LISINOPRIL 5 MG TAB PO SCH ×2 (08:44→22:22)
[2017-01-22] MEDS: SODIUM CHLORIDE 0.9% FLUSH 10 ML FLUSH IV FLUSH SCH ×2 (08:47→22:22)
[2017-01-22] MEDS: PANTOPRAZOLE SOD 20 MG DELAYED RELEASE TAB PO SCH (08:47)
[2017-01-22 08:49] LABS: ALKALINE PHOSPHATASE 86 U/L (45-117); ALT (GPT) 16 U/L (10-53); ANION GAP 10 MEQ/L (5-15); AST (GOT) 11 U/L (15-37); BICARBONATE 30.4 MEQ/L (21.0-32.0); BLOOD UREA NITROGEN 28 MG/DL (7-18); CHLORIDE 95 MEQ/L (98-107); GLOMERULAR FILTRATION RATE 8 ML/MIN (>89); POTASSIUM 4.8 MEQ/L (3.5-5.1); SODIUM (NA) 135 MEQ/L (136-145); TOTAL BILIRUBIN ADULT 0.2 MG/DL (0.2-1.0)
--- NOTE | 2017-01-22 11:03 | HHI.NPPN ---
Subjective History of Present Illness 56-year-old female with past medical history of hypertension, chronic anemia, history of breast cancer, end-stage renal disease on peritoneal dialysis, history of gastroesophageal reflux disease, history of GI bleeding came to the hospital referred by Dr. Maher her oncologist. The patient has this cough going on for the last five or six months and she had a chest CT done as an outpatient which showed that she has some pleural effusion and she was referred by her oncologist, Dr. Maher, to go to the hospital for possible thoracentesis. Additional Remarks Patient is alert, feeling better, no SOB, with chest tube, not in distress. Review of Systems General Constitutional: Fatigue Respiratory Lungs: Cough Cardiovascular Cardiac: BACON Objective Data Data Vital Signs Date Time Temp Pulse Resp B/P (MAP) Pulse Ox O2 Delivery O2 Flow Rate FiO2 01/22/17 08:00 98.2 78 16 154/83 (106) 98 01/22/17 04:05 98.8 74 17 147/73 (97) 96 01/21/17 23:30 97.1 73 18 127/67 (87) 97 01/21/17 20:37 99.0 78 18 129/70 (89) 99 01/21/17 16:00 98.0 77 16 108/55 (72) 96 01/21/17 12:13 98.3 80 16 141/71 (94) 98 01/21/17 12:00 98.3 80 16 141/71 (94) 100 -: 01/22/17 0719 01/22/17 0719 Physical Exam General Appearance: No Acute Distress, Comfortable Eyes Eye Exam: Sclera White, Extraocular Movement Intact Throat Throat Exam: Oral Mucosa [place] & Moist, Oral Pharynx Normal Neck Neck Exam: Neck Supple, Trachea Midline Pulmonary Resp Exam: Clear Bilaterally, Breath Sounds Equal, No Distress, Decreased Bases Cardiology CV Exam: Regular Gastrointestinal/Abdomen GI Exam: Soft, Non-Tender, Bowel Sounds Present Musculoskeletal MS Exam: Joints Intact Integumentary Skin Exam: Warm, Dry Extremeties Extremities Exam: Trace Edema Neurologic Neuro Exam: Alert, Awake, Oriented, No Focal Deficits Psychiatric Psych Exam: Appropriate Responses PUD Prophylasis PUD Prophylaxis: Protonix Assessment/Plan Assessment Summary: Anemia of CKD, Hypertension, End Stage Renal Disease Problem List: (1) Pleural effusion, right ICD Codes: J90 - Pleural effusion, not elsewhere classified Status: Acute (2) Sinus tachycardia ICD Codes: R00.0 - Tachycardia, unspecified Status: Acute (3) Hypertension ICD Codes: I10 - Essential (primary) hypertension Status: Acute (4) Anemia of chronic kidney failure ICD Codes: N18.9 - Chronic kidney disease, unspecified; D63.1 - Anemia in chronic kidney disease Status: Acute (5) ESRD on peritoneal dialysis ICD Codes: N18.6 - End stage renal disease; Z99.2 - Dependence on renal dialysis Status: Acute Plan Right-sided chest tube. Pulmonary following. BP better On Percocet Hgb. is stable. started on HD and see if improve the Creatinine and Pleural effusion. Creatinine is better, Pulmonary following. Decreased fluid from the chest tube. Creatinine is much better with HD. HD yesterday She will have Pleurodesis next week Dr. Ernst to follow Problem Qualifiers (1) Hypertension: Qualified Codes: I10 - Essential (primary) hypertension (2) Anemia of chronic kidney failure: Camille Kovacs MD Jan 22, 2017 11:03
[2017-01-22 12:00] VITALS: BP 123/59; PULSE 72; RESP 16; TEMP 96.6; O2SAT 99
[2017-01-22 13:40] LABS: KERATOCYTES OCC (NORMAL); OVALOCYTES 1+ (NORMAL); SCAN/DIFF AUTO DIFF CONFIRMED; TEARDROP RBCS 1+ (NORMAL)
--- NOTE | 2017-01-22 14:00 | HHI.PR ---
Subjective Remarks Alert NO SOB Chest tube in place Objective Vital Signs Date Time Temp Pulse Resp B/P (MAP) Pulse Ox O2 Delivery O2 Flow Rate FiO2 01/22/17 08:00 98.2 78 16 154/83 (106) 98 01/22/17 04:05 98.8 74 17 147/73 (97) 96 01/21/17 23:30 97.1 73 18 127/67 (87) 97 01/21/17 20:37 99.0 78 18 129/70 (89) 99 01/21/17 16:00 98.0 77 16 108/55 (72) 96 I/O 01/21/17 01/21/17 01/21/17 01/22/17 01/22/17 01/22/17 06:59 14:59 22:59 06:59 14:59 22:59 Intake Total 240 ml 240 ml 360 ml 480 ml Output Total 2550 ml 120 ml 40 ml Balance 240 ml -2310 ml 240 ml 440 ml Intake Oral 240 ml 240 ml 360 ml 480 ml Chest Tube Drainage Total 50 ml 120 ml 40 ml Hemodialysis 2500 ml # Voids 0 1 1 # Bowel Movements 1 0 0 Result Diagram: 01/22/1771801/22/17718 Objective Remarks GENERAL: SKIN: Warm and dry. HEAD: Atraumatic. Normocephalic. EYES: Pupils equal and round. No scleral icterus. No injection or drainage. ENT: No nasal bleeding or discharge. Mucous membranes pink and moist. NECK: Trachea midline. No JVD. CARDIOVASCULAR: Regular rate and rhythm. RESPIRATORY: decrease breath sounds right base GASTROINTESTINAL: Abdomen soft, non-tender, nondistended. Hepatic and splenic margins not palpable. MUSCULOSKELETAL: Extremities without clubbing, cyanosis, or edema. No obvious deformities. NEUROLOGICAL: Awake and alert. No obvious cranial nerve deficits. Motor grossly within normal limits. Five out of 5 muscle strength in the arms and legs. Normal speech. PSYCHIATRIC: Appropriate mood and affect; insight and judgment normal. Assessment and Plan Assessment and Plan pleural effusion negative cytology renal failure on dialysis breast CA PLAN PLEURODESIS BEFORE CHEST TUBE REMOVAL INCREASE ACTIVITY Thalia Vásquez MD Jan 22, 2017 14:00
[2017-01-22 16:00] VITALS: BP 136/70; PULSE 70; RESP 16; TEMP 99.1; O2SAT 99
[2017-01-22 20:15] VITALS: BP 130/61; PULSE 71; RESP 16; TEMP 99.2; O2SAT 96
[2017-01-22] MEDS: SCOPOLAMINE 1.5 MG PATCH T-DERMAL SCH (22:22)
[2017-01-22] MEDS: REMOVE OLD SCOPOLAMINE PATCH T-DERMAL SCH (22:22)
[2017-01-23 00:15] VITALS: BP 146/70; PULSE 82; RESP 16; TEMP 98.1; O2SAT 97
[2017-01-23 04:05] VITALS: BP 150/72; PULSE 87; RESP 16; TEMP 100; O2SAT 96
[2017-01-23] MEDS: METOCLOPRAMIDE HCL 10 MG TAB PO SCH ×4 (05:40→20:32)
[2017-01-23 05:52] LABS: ALKALINE PHOSPHATASE 75 U/L (45-117); ALT (GPT) 17 U/L (10-53); ANION GAP 8 MEQ/L (5-15); AST (GOT) 11 U/L (15-37); BICARBONATE 30.1 MEQ/L (21.0-32.0); BLOOD UREA NITROGEN 41 MG/DL (7-18); CHLORIDE 94 MEQ/L (98-107); GLOMERULAR FILTRATION RATE 6 ML/MIN (>89); POTASSIUM 5.1 MEQ/L (3.5-5.1); SODIUM (NA) 132 MEQ/L (136-145); TOTAL BILIRUBIN ADULT 0.3 MG/DL (0.2-1.0)
[2017-01-23 06:01] LABS: AUTOMATED NEUTROPHIL # 9.9 TH/MM3 (1.8-7.7); BASOPHIL # 0.1 TH/MM3 (0-0.2); BASOPHIL % 0.7 % (0.0-2.0); EOSINOPHIL # 0.4 TH/MM3 (0-0.4); EOSINOPHIL % 2.9 % (0.0-4.0); HEMATOCRIT 28.2 % (35.0-46.0); LYMPH % 10.8 % (9.0-44.0); LYMPHOCYTE # 1.4 TH/MM3 (1.0-4.8); MEAN CELL VOLUME 74.8 FL (80.0-100.0); MEAN CORPUSCULAR HEMOGLOBIN 23.4 PG (27.0-34.0); MEAN CORPUSCULAR HGB CONC 31.2 % (32.0-36.0); MONO % 9.1 % (0.0-8.0); NEUT % 76.5 % (16.0-70.0); PLATELET COUNT 163 TH/MM3 (150-450); RED BLOOD COUNT 3.76 MIL/MM3 (4.00-5.30); RED CELL DISTRIBUTION WIDTH 23.6 % (11.6-17.2)
[2017-01-23 06:03] LABS: HEMO FLAGS AUTO DIFF
[2017-01-23 08:00] VITALS: BP 142/70; PULSE 85; RESP 16; TEMP 99.6; O2SAT 95
[2017-01-23] MEDS: DOCUSATE SODIUM 50 MG/SENNA 8.6 MG TAB PO SCH ×2 (09:00→20:32)
[2017-01-23] MEDS: VITAMIN B CMPLX/VITC/FOLIC AC CAP PO SCH (09:47)
[2017-01-23] MEDS: SODIUM CHLORIDE 0.9% FLUSH 10 ML FLUSH IV FLUSH SCH ×2 (09:47→20:32)
[2017-01-23] MEDS: PANTOPRAZOLE SOD 20 MG DELAYED RELEASE TAB PO SCH (09:48)
[2017-01-23] MEDS: SEVELAMER CARBONATE 800 MG TAB PO SCH ×3 (09:48→18:30)
[2017-01-23] MEDS: METOPROLOL TARTRATE 50 MG TAB PO SCH ×3 (09:48→18:30)
[2017-01-23] MEDS: LISINOPRIL 5 MG TAB PO SCH ×2 (09:48→20:30)
[2017-01-23 11:12] LABS: KERATOCYTES OCC (NORMAL); OVALOCYTES 1+ (NORMAL); SCAN/DIFF AUTO DIFF CONFIRMED
[2017-01-23 16:00] VITALS: BP 142/71; PULSE 78; RESP 17; TEMP 100; O2SAT 98
--- NOTE | 2017-01-23 17:07 | HHI.NPPN ---
Subjective History of Present Illness 56-year-old female with past medical history of hypertension, chronic anemia, history of breast cancer, end-stage renal disease on peritoneal dialysis, history of gastroesophageal reflux disease, history of GI bleeding came to the hospital referred by Dr. Maher her oncologist. The patient has this cough going on for the last five or six months and she had a chest CT done as an outpatient which showed that she has some pleural effusion and she was referred by her oncologist, Dr. Maher, to go to the hospital for possible thoracentesis. Additional Remarks Patient is alert, feeling better, no SOB, with chest tube, clinically same. Review of Systems General Constitutional: Fatigue Respiratory Lungs: Cough Cardiovascular Cardiac: BACON Objective Data Data Vital Signs Date Time Temp Pulse Resp B/P (MAP) Pulse Ox O2 Delivery O2 Flow Rate FiO2 01/23/17 08:00 99.6 85 16 142/70 (94) 95 01/23/17 04:05 100.0 87 16 150/72 (98) 96 01/23/17 00:15 98.1 82 16 146/70 (95) 97 01/22/17 20:15 99.2 71 16 130/61 (84) 96 -: 01/23/17 0447 01/23/17 0447 Physical Exam General Appearance: No Acute Distress, Comfortable Eyes Eye Exam: Sclera White, Extraocular Movement Intact Throat Throat Exam: Oral Mucosa [place] & Moist, Oral Pharynx Normal Neck Neck Exam: Neck Supple, Trachea Midline Pulmonary Resp Exam: Clear Bilaterally, Breath Sounds Equal, No Distress, Decreased Bases Cardiology CV Exam: Regular Gastrointestinal/Abdomen GI Exam: Soft, Non-Tender, Bowel Sounds Present Musculoskeletal MS Exam: Joints Intact Integumentary Skin Exam: Warm, Dry Extremeties Extremities Exam: Trace Edema Neurologic Neuro Exam: Alert, Awake, Oriented, No Focal Deficits Psychiatric Psych Exam: Appropriate Responses PUD Prophylasis PUD Prophylaxis: Protonix Assessment/Plan Assessment Summary: Anemia of CKD, Hypertension, End Stage Renal Disease Problem List: (1) Pleural effusion, right ICD Codes: J90 - Pleural effusion, not elsewhere classified Status: Acute (2) Sinus tachycardia ICD Codes: R00.0 - Tachycardia, unspecified Status: Acute (3) Hypertension ICD Codes: I10 - Essential (primary) hypertension Status: Acute (4) Anemia of chronic kidney failure ICD Codes: N18.9 - Chronic kidney disease, unspecified; D63.1 - Anemia in chronic kidney disease Status: Acute (5) ESRD on peritoneal dialysis ICD Codes: N18.6 - End stage renal disease; Z99.2 - Dependence on renal dialysis Status: Acute Plan Right-sided chest tube. Pulmonary following. BP better On Percocet Hgb. is stable. started on HD and see if improve the Creatinine and Pleural effusion. Creatinine is better, Pulmonary following. Decreased fluid from the chest tube. Creatinine is much better with HD. For Pleurodesis in AM. HD also in AM. After Pleurodesis, will start PD. Problem Qualifiers (1) Hypertension: Qualified Codes: I10 - Essential (primary) hypertension (2) Anemia of chronic kidney failure: Brina Ernst MD Jan 23, 2017 17:07
[2017-01-23] MEDS: CALCITRIOL 0.25 MCG CAP PO SCH (18:45)
--- NOTE | 2017-01-23 19:04 | HHI.PR ---
Subjective Remarks Alert NO SOB Chest tube in place Objective Vital Signs Date Time Temp Pulse Resp B/P (MAP) Pulse Ox O2 Delivery O2 Flow Rate FiO2 01/23/17 08:00 99.6 85 16 142/70 (94) 95 01/23/17 04:05 100.0 87 16 150/72 (98) 96 01/23/17 00:15 98.1 82 16 146/70 (95) 97 01/22/17 20:15 99.2 71 16 130/61 (84) 96 I/O 01/22/17 01/22/17 01/22/17 01/23/17 01/23/17 01/23/17 07:00 15:00 23:00 07:00 15:00 23:00 Intake Total 480 ml 480 ml 240 ml Output Total 40 ml 50 ml 0 ml 0 ml 70 ml Balance 440 ml -50 ml 480 ml 240 ml -70 ml Intake Oral 480 ml 480 ml 240 ml Chest Tube Drainage Total 40 ml 50 ml 0 ml 0 ml 70 ml # Voids 1 1 0 # Bowel Movements 0 0 0 Result Diagram: 01/23/1744601/23/17446 Objective Remarks GENERAL: SKIN: Warm and dry. HEAD: Atraumatic. Normocephalic. EYES: Pupils equal and round. No scleral icterus. No injection or drainage. ENT: No nasal bleeding or discharge. Mucous membranes pink and moist. NECK: Trachea midline. No JVD. CARDIOVASCULAR: Regular rate and rhythm. RESPIRATORY: decrease breath sounds right base GASTROINTESTINAL: Abdomen soft, non-tender, nondistended. Hepatic and splenic margins not palpable. MUSCULOSKELETAL: Extremities without clubbing, cyanosis, or edema. No obvious deformities. NEUROLOGICAL: Awake and alert. No obvious cranial nerve deficits. Motor grossly within normal limits. Five out of 5 muscle strength in the arms and legs. Normal speech. PSYCHIATRIC: Appropriate mood and affect; insight and judgment normal. Assessment and Plan Assessment and Plan pleural effusion negative cytology renal failure on dialysis breast CA PLAN PLEURODESIS BEFORE CHEST TUBE REMOVAL INCREASE ACTIVITY Thalia Vásquez MD Jan 23, 2017 19:04
[2017-01-23 20:00] VITALS: BP 135/62; PULSE 79; RESP 16; TEMP 100.1; O2SAT 97
--- NOTE | 2017-01-23 20:23 | HHI.PR ---
Subjective History of Present Illness Patient have high creatinine nephrology following. on hemodialysis better now getting hemodialysis still have right side chest tube in still draining fluid..once fluid drained out need pleurodehesis Review of Systems Constitutional Constitutional: Fatigue, Weakness Pulmonary Pulmonary Remarks right side chest tube in place. Vitals/Results Intake & Output 01/23/17 01/23/17 01/24/17 15:00 23:00 07:00 Output Total 70 ml Balance -70 ml Chest Tube Drainage Total 70 ml Vital Signs Vital Signs Date Time Temp Pulse Resp B/P (MAP) Pulse Ox O2 Delivery O2 Flow Rate FiO2 01/23/17 16:00 100.0 78 17 142/71 (94) 98 01/23/17 08:00 99.6 85 16 142/70 (94) 95 01/23/17 04:05 100.0 87 16 150/72 (98) 96 01/23/17 00:15 98.1 82 16 146/70 (95) 97 CBC/BMP: 01/23/17 0447 01/23/17 0447 Lab Results Laboratory Tests Test 01/23/17 04:47 White Blood Count 13.0 TH/MM3 Red Blood Count 3.76 MIL/MM3 Hemoglobin 8.8 GM/DL Hematocrit 28.2 % Mean Corpuscular Volume 74.8 FL Mean Corpuscular Hemoglobin 23.4 PG Mean Corpuscular Hemoglobin Concent 31.2 % Red Cell Distribution Width 23.6 % Platelet Count 163 TH/MM3 Mean Platelet Volume 9.2 FL Neutrophils (%) (Auto) 76.5 % Lymphocytes (%) (Auto) 10.8 % Monocytes (%) (Auto) 9.1 % Eosinophils (%) (Auto) 2.9 % Basophils (%) (Auto) 0.7 % Neutrophils # (Auto) 9.9 TH/MM3 Lymphocytes # (Auto) 1.4 TH/MM3 Monocytes # (Auto) 1.2 TH/MM3 Eosinophils # (Auto) 0.4 TH/MM3 Basophils # (Auto) 0.1 TH/MM3 CBC Comment AUTO DIFF Differential Comment AUTO DIFF CONFIRMED Ovalocytes 1+ Keratocytes OCC Blood Urea Nitrogen 41 MG/DL Creatinine 8.79 MG/DL Random Glucose 85 MG/DL Total Protein 6.2 GM/DL Albumin 2.2 GM/DL Calcium Level 8.5 MG/DL Alkaline Phosphatase 75 U/L Aspartate Amino Transf (AST/SGOT) 11 U/L Alanine Aminotransferase (ALT/SGPT) 17 U/L Total Bilirubin 0.3 MG/DL Sodium Level 132 MEQ/L Potassium Level 5.1 MEQ/L Chloride Level 94 MEQ/L Carbon Dioxide Level 30.1 MEQ/L Anion Gap 8 MEQ/L Estimat Glomerular Filtration Rate 6 ML/MIN Physical Exam General General Appearance: No Acute Distress, Comfortable Eyes Eye Exam: Sclera White, Extraocular Movement Intact Throat Throat Exam: Oral Mucosa [place] & Moist, Oral Pharynx Normal Neck Neck Exam: Neck Supple, Trachea Midline Pulmonary Resp Exam: Clear Bilaterally, Breath Sounds Equal, No Distress, Decreased Bases Resp Remarks Right side chest tube in. Cardiology CV Exam: Regular Chest/Breast Chest/Breast Remarks right side chest tube in place. Gastrointestinal/Abdomen GI Exam: Soft, Non-Tender, Bowel Sounds Present Musculoskeletal MS Exam: Joints Intact Integumentary Skin Exam: Warm, Dry Extremeties Extremities Exam: Trace Edema Neurologic Neuro Exam: Alert, Awake, Oriented, No Focal Deficits Psychiatric Psych Exam: Appropriate Responses PUD Prophylasis PUD Prophylaxis: Protonix Assessment/Plan Assessment/Plan Assessment and Plan Assessment and Plan Large right sided pleural effusion s/p right side chest tube placement still draining fluid Fluid once fluid drained out need pleurodehesis analysis negative for malignant cell. s/p CT scan of chest and chest x- ray. shows moderate left pleural effusion and Large right Hydropneumothorax with complex loculated component as well as pulmonary consolidation and possible rounded Atelectasis / mass pulmonary managing the patient. S/P Right lung collapse s/p chest tube in place End-stage renal disease was on peritoneal dialysis nephrology following, on hemodialysis now getting today. Anemia of chronic disease Resting dyspnea secondary to the pleural effusion..better after chest tube placement. Hypertension on home medicine will monitor blood pressure.+ Norvasc to 5 mg PO BID.+ Metoprolol. Oncologist and [employer] and pulmonary input noted Non sustained venticular tachycardia cardiology input noted on metoprolol Hyperkalemia resolved. Discussed with patient. Check CBC with diff CMP in AM. Discussed Condition with: Patient Felipe Alvarado MD Jan 23, 2017 20:23
[2017-01-24] VITALS (10 sets, daily range): BP systolic 122–167; BP diastolic 61–90; PULSE 76–101; RESP 16–20; TEMP 99.3–101.3; O2SAT 93–99
[2017-01-24] MEDS: METOCLOPRAMIDE HCL 10 MG TAB PO SCH ×5 (05:38→21:00)
[2017-01-24] MEDS: LISINOPRIL 5 MG TAB PO SCH ×2 (08:14→20:21)
[2017-01-24] MEDS: VITAMIN B CMPLX/VITC/FOLIC AC CAP PO SCH (08:14)
[2017-01-24] MEDS: METOPROLOL TARTRATE 50 MG TAB PO SCH ×3 (08:15→18:00)
[2017-01-24] MEDS: SEVELAMER CARBONATE 800 MG TAB PO SCH ×4 (08:15→20:27)
[2017-01-24] MEDS: PANTOPRAZOLE SOD 20 MG DELAYED RELEASE TAB PO SCH (08:15)
[2017-01-24] MEDS: DOCUSATE SODIUM 50 MG/SENNA 8.6 MG TAB PO SCH ×3 (08:16→21:00)
[2017-01-24] MEDS: SODIUM CHLORIDE 0.9% FLUSH 10 ML FLUSH IV FLUSH SCH ×2 (08:16→20:21)
[2017-01-24 09:15] LABS: AUTOMATED NEUTROPHIL # 12.6 TH/MM3 (1.8-7.7); BASOPHIL # 0.1 TH/MM3 (0-0.2); BASOPHIL % 0.3 % (0.0-2.0); EOSINOPHIL # 0.2 TH/MM3 (0-0.4); EOSINOPHIL % 1.5 % (0.0-4.0); HEMATOCRIT 28.7 % (35.0-46.0); LYMPH % 7.1 % (9.0-44.0); LYMPHOCYTE # 1.1 TH/MM3 (1.0-4.8); MEAN CELL VOLUME 74.5 FL (80.0-100.0); MEAN CORPUSCULAR HEMOGLOBIN 23.5 PG (27.0-34.0); MEAN CORPUSCULAR HGB CONC 31.5 % (32.0-36.0); MONO % 8.8 % (0.0-8.0); NEUT % 82.3 % (16.0-70.0); PLATELET COUNT 179 TH/MM3 (150-450); RED BLOOD COUNT 3.85 MIL/MM3 (4.00-5.30); RED CELL DISTRIBUTION WIDTH 23.4 % (11.6-17.2); WHITE BLOOD COUNT 15.3 TH/MM3 (4.0-11.0)
[2017-01-24 09:16] LABS: HEMO FLAGS AUTO DIFF
[2017-01-24 09:30] LABS: ALKALINE PHOSPHATASE 75 U/L (45-117); ALT (GPT) 14 U/L (10-53); ANION GAP 9 MEQ/L (5-15); AST (GOT) 9 U/L (15-37); BICARBONATE 30.1 MEQ/L (21.0-32.0); BLOOD UREA NITROGEN 56 MG/DL (7-18); CHLORIDE 82 MEQ/L (98-107); GLOMERULAR FILTRATION RATE 5 ML/MIN (>89); POTASSIUM 5.6 MEQ/L (3.5-5.1); TOTAL BILIRUBIN ADULT 0.3 MG/DL (0.2-1.0)
[2017-01-24 09:36] LABS: SODIUM (NA) 121 MEQ/L (136-145)
[2017-01-24 09:52] LABS: KERATOCYTES OCC (NORMAL); OVALOCYTES 2+ (NORMAL); PLATELET ESTIMATE SMEAR NORMAL (NORMAL); PLATELET MORPHOLOGY NORMAL (NORMAL); SCAN/DIFF AUTO DIFF CONFIRMED; TEARDROP RBCS 1+ (NORMAL)
[2017-01-24] MEDS ORDERED: LIDOCAINE 2% ONE ×3 (13:30)
[2017-01-24] MEDS ORDERED: SODIUM CHLORIDE 0.9% ONE ×3 (13:30)
[2017-01-24] MEDS ORDERED: [UNRECOGNIZED DRUG - OTHER] ONE ×3 (13:30)
[2017-01-24] MEDS ORDERED: DOXYCYCLINE ONE ×3 (13:30)
--- NOTE | 2017-01-24 13:50 | HHI.PR ---
Subjective Remarks 56 YOAA female with ESRD on PD, pl eff, ca breast Had right chest tube placed No CP no Fever No SOB Frustrated with chest tube Objective Vital Signs Vital Signs Date Time Temp Pulse Resp B/P (MAP) Pulse Ox O2 Delivery O2 Flow Rate FiO2 01/24/17 08:00 99.4 76 16 162/74 (103) 99 01/24/17 04:35 100.1 83 16 167/79 (108) 93 01/24/17 00:45 99.3 78 16 127/61 (83) 97 01/23/17 20:00 100.1 79 16 135/62 (86) 97 01/23/17 16:00 100.0 78 17 142/71 (94) 98 I/O 01/23/17 01/23/17 01/23/17 01/24/17 01/24/17 01/24/17 07:00 15:00 23:00 07:00 15:00 23:00 Intake Total 240 ml 360 ml 120 ml Output Total 0 ml 70 ml 0 ml Balance 240 ml 290 ml 120 ml Intake Oral 240 ml 360 ml 120 ml Chest Tube Drainage Total 0 ml 70 ml 0 ml # Voids 0 0 0 # Bowel Movements 0 0 0 Result Diagram: 01/24/1711 01/24/17 0711 Objective Remarks GENERAL: MBMN AA female,NAD SKIN: Warm and dry. HEAD: Normocephalic. EYES: No scleral icterus. No injection or drainage. NECK: Supple, trachea midline. No JVD or lymphadenopathy. CARDIOVASCULAR: Regular rate and rhythm without murmurs, gallops, or rubs. RESPIRATORY: Breath sounds equal bilaterally. No accessory muscle use. Right chest tube draining GASTROINTESTINAL: Abdomen soft, non-tender, nondistended. PD Cathetor MUSCULOSKELETAL: No cyanosis, or edema. BACK: Nontender without obvious deformity. No CVA tenderness. A/P Assessment and Plan Right pleural effusion S/P Chest tube placement ESRD on HD Atelactesis HTN GERD H/O Ca breast PLAN: Chest tube to suction Stable on RA Pleural fluid cytology Negative Monitor chest tube drainage Pleurodesis by IR when drainage decreases CXR in Roel Forte MD Jan 24, 2017 13:50
--- NOTE | 2017-01-24 14:57 | PD.RAD ---
Post Procedure Progress Note Pre Procedure Diagnosis: (1) Pleural effusion, right Post Procedure Diagnosis: (1) Pleural effusion, right Procedure Date: Jan 24, 2017 Supervising Radiologist: Mani Avilez Anesthesia: Local, Analgesia Plan of Activity Patient to Unit: [facility] Patient Condition: Fair Additional Comments: Right chest tube evaluated the tube was in good position but the hub was cracked. New tube place Pleurodesis preformed with Doxycycline and lidocaine mixture Pt. tolerated the procedure well See PACS Report for procedural detail/treatment Mani Avilez MD Jan 24, 2017 14:57
--- NOTE | 2017-01-24 15:55 | HHI.NPPN ---
Subjective History of Present Illness 56-year-old female with past medical history of hypertension, chronic anemia, history of breast cancer, end-stage renal disease on peritoneal dialysis, history of gastroesophageal reflux disease, history of GI bleeding came to the hospital referred by Dr. Maher her oncologist. The patient has this cough going on for the last five or six months and she had a chest CT done as an outpatient which showed that she has some pleural effusion and she was referred by her oncologist, Dr. Maher, to go to the hospital for possible thoracentesis. Additional Remarks Patient is alert, seen after Pleurodesis, no SOB. Review of Systems General Constitutional: Fatigue Respiratory Lungs: Cough Cardiovascular Cardiac: BACON Objective Data Data Vital Signs Date Time Temp Pulse Resp B/P (MAP) Pulse Ox O2 Delivery O2 Flow Rate FiO2 01/24/17 15:35 80 18 149/80 (103) 97 01/24/17 15:05 80 20 148/78 (101) 97 01/24/17 14:50 83 20 157/87 (110) 97 01/24/17 12:00 100.0 80 16 141/90 (107) 96 01/24/17 08:00 99.4 76 16 162/74 (103) 99 01/24/17 04:35 100.1 83 16 167/79 (108) 93 01/24/17 00:45 99.3 78 16 127/61 (83) 97 01/23/17 20:00 100.1 79 16 135/62 (86) 97 01/23/17 16:00 100.0 78 17 142/71 (94) 98 -: 01/24/17 0711 01/24/17 0711 Physical Exam General Appearance: No Acute Distress, Comfortable Eyes Eye Exam: Sclera White, Extraocular Movement Intact Throat Throat Exam: Oral Mucosa [place] & Moist, Oral Pharynx Normal Neck Neck Exam: Neck Supple, Trachea Midline Pulmonary Resp Exam: Clear Bilaterally, Breath Sounds Equal, No Distress, Decreased Bases Cardiology CV Exam: Regular Gastrointestinal/Abdomen GI Exam: Soft, Non-Tender, Bowel Sounds Present Musculoskeletal MS Exam: Joints Intact Integumentary Skin Exam: Warm, Dry Extremeties Extremities Exam: Trace Edema Neurologic Neuro Exam: Alert, Awake, Oriented, No Focal Deficits Psychiatric Psych Exam: Appropriate Responses PUD Prophylasis PUD Prophylaxis: Protonix Assessment/Plan Assessment Summary: Anemia of CKD, Hypertension, End Stage Renal Disease Problem List: (1) Pleural effusion, right ICD Codes: J90 - Pleural effusion, not elsewhere classified Status: Acute (2) Sinus tachycardia ICD Codes: R00.0 - Tachycardia, unspecified Status: Acute (3) Hypertension ICD Codes: I10 - Essential (primary) hypertension Status: Acute (4) Anemia of chronic kidney failure ICD Codes: N18.9 - Chronic kidney disease, unspecified; D63.1 - Anemia in chronic kidney disease Status: Acute (5) ESRD on peritoneal dialysis ICD Codes: N18.6 - End stage renal disease; Z99.2 - Dependence on renal dialysis Status: Acute Plan Right-sided chest tube. Pulmonary following. BP better On Percocet Hgb. is stable. started on HD and see if improve the Creatinine and Pleural effusion. Creatinine is better, Pulmonary following. Decreased fluid from the chest tube. Creatinine is much better with HD. Pleurodesis done, tolerated well so far. HD today in 15-20 min. Problem Qualifiers (1) Hypertension: Qualified Codes: I10 - Essential (primary) hypertension (2) Anemia of chronic kidney failure: Brina Ernst MD Jan 24, 2017 15:55
[2017-01-24] MEDS ORDERED: IOHEXOL 350 MG/ML 50 ML BTL (for RAD DIAG) OTHER ONE (17:17)
--- NOTE | 2017-01-24 17:26 | RADRPT ---
EXAM DATE/TIME: 01/24/2017 14:00 [facility] COMPARISON: CHEST TUBE EXCHANGE, RIGHT, January 24, 2017, 0:00. INDICATIONS : Patient with a history of pleural effusion. MEDICAL HISTORY : HTN Chronic anemia Breast cancer GERD History of GI bleeding ESRD SURGICAL HISTORY : Left arm AV fistula PD catheter placement Port Permcath ENCOUNTER: Initial ACUITY: 1 month PAIN SCORE: 2/10 LOCATION: Right chest FLUORO TIME: 1.8 minutes IMAGE SERIES: 2 CONTRAST: 2 cc Omnipaque (iohexol) 350 MEDICATION(S): 1.) 150 mcg fentanyl (Sublimaze) IV PROCEDURE : 1. Chemical pleurodesis. 2. Fluoroscopic guidance. The risks, benefits, and alternatives to paracentesis were explained to the patient in detail, lay te lalita including the risk of bleeding and infection. Oral and written informed consent was obtained. The site was prepped in sterile fashion. Full sterile technique was used, including cap, mask, steri le gloves and gown and a large sterile sheet. Hand hygiene and 2% chlorhexidine and/or betadine/alco hol prep was utilized per protocol for cutaneous antisepsis. The patient's chest tube was accessed using sterile technique. A small amount of contrast confirm con tinuity with the pleural space. There is free flow of contrast from the catheter. It was noted with t he injection the hub of the catheter was cracked. The catheter was withdrawn from the patient. A new 10 [place] tube was advanced over a 0.035 wire, passed through the existing tract and positioned withi n the right lung base. Approximately 60 cc of a cocktail consisting of dilute doxycycline and lidocaine was administered int o the thoracic cavity for pleuradesis. The patient tolerated the procedure well. CONCLUSION: Uncomplicated chemical pleurodesis as above. Mani Avilez MD on January 24, 2017 at 17:22 Board Certified Radiologist. This report was verified electronically.
--- NOTE | 2017-01-24 20:11 | HHI.PR ---
Subjective History of Present Illness Patient have high creatinine nephrology following. on hemodialysis better now getting hemodialysis during hospital stay . still have right side chest tube in still draining fluid..once fluid drained out need pleurodehesis Review of Systems Constitutional Constitutional: Fatigue, Weakness Pulmonary Pulmonary Remarks right side chest tube in place. Vitals/Results Vital Signs Vital Signs Date Time Temp Pulse Resp B/P (MAP) Pulse Ox O2 Delivery O2 Flow Rate FiO2 01/24/17 18:52 Room Air 01/24/17 15:55 80 18 122/78 (93) 97 01/24/17 15:35 80 18 149/80 (103) 97 01/24/17 15:05 80 20 148/78 (101) 97 01/24/17 14:50 83 20 157/87 (110) 97 01/24/17 12:00 100.0 80 16 141/90 (107) 96 01/24/17 08:00 99.4 76 16 162/74 (103) 99 01/24/17 04:35 100.1 83 16 167/79 (108) 93 01/24/17 00:45 99.3 78 16 127/61 (83) 97 CBC/BMP: 01/24/17 0711 01/24/17 0711 Lab Results Laboratory Tests Test 01/24/17 07:11 White Blood Count 15.3 TH/MM3 Red Blood Count 3.85 MIL/MM3 Hemoglobin 9.0 GM/DL Hematocrit 28.7 % Mean Corpuscular Volume 74.5 FL Mean Corpuscular Hemoglobin 23.5 PG Mean Corpuscular Hemoglobin Concent 31.5 % Red Cell Distribution Width 23.4 % Platelet Count 179 TH/MM3 Mean Platelet Volume 10.0 FL Neutrophils (%) (Auto) 82.3 % Lymphocytes (%) (Auto) 7.1 % Monocytes (%) (Auto) 8.8 % Eosinophils (%) (Auto) 1.5 % Basophils (%) (Auto) 0.3 % Neutrophils # (Auto) 12.6 TH/MM3 Lymphocytes # (Auto) 1.1 TH/MM3 Monocytes # (Auto) 1.3 TH/MM3 Eosinophils # (Auto) 0.2 TH/MM3 Basophils # (Auto) 0.1 TH/MM3 CBC Comment AUTO DIFF Differential Comment AUTO DIFF CONFIRMED Platelet Estimate NORMAL Platelet Morphology Comment NORMAL Tear Drop Cells 1+ Ovalocytes 2+ Keratocytes OCC Blood Urea Nitrogen 56 MG/DL Creatinine 10.73 MG/DL Random Glucose 68 MG/DL Total Protein 6.4 GM/DL Albumin 2.3 GM/DL Calcium Level 9.1 MG/DL Alkaline Phosphatase 75 U/L Aspartate Amino Transf (AST/SGOT) 9 U/L Alanine Aminotransferase (ALT/SGPT) 14 U/L Total Bilirubin 0.3 MG/DL Sodium Level 121 MEQ/L Potassium Level 5.6 MEQ/L Chloride Level 82 MEQ/L Carbon Dioxide Level 30.1 MEQ/L Anion Gap 9 MEQ/L Estimat Glomerular Filtration Rate 5 ML/MIN Physical Exam General General Appearance: No Acute Distress, Comfortable Eyes Eye Exam: Sclera White, Extraocular Movement Intact Throat Throat Exam: Oral Mucosa [place] & Moist, Oral Pharynx Normal Neck Neck Exam: Neck Supple, Trachea Midline Pulmonary Resp Exam: Clear Bilaterally, Breath Sounds Equal, No Distress, Decreased Bases Resp Remarks Right side chest tube in. Cardiology CV Exam: Regular Chest/Breast Chest/Breast Remarks right side chest tube in place. Gastrointestinal/Abdomen GI Exam: Soft, Non-Tender, Bowel Sounds Present Musculoskeletal MS Exam: Joints Intact Integumentary Skin Exam: Warm, Dry Extremeties Extremities Exam: Trace Edema Neurologic Neuro Exam: Alert, Awake, Oriented, No Focal Deficits Psychiatric Psych Exam: Appropriate Responses PUD Prophylasis PUD Prophylaxis: Protonix Assessment/Plan Assessment/Plan Assessment and Plan Assessment and Plan Large right sided pleural effusion s/p right side chest tube placement still draining fluid Fluid once fluid drained out need pleurodehesis analysis negative for malignant cell. s/p CT scan of chest and chest x- ray. shows moderate left pleural effusion and Large right Hydropneumothorax with complex loculated component as well as pulmonary consolidation and possible rounded Atelectasis / mass pulmonary managing the patient. S/P Right lung collapse s/p chest tube in place End-stage renal disease was on peritoneal dialysis nephrology following, on hemodialysis now getting today. Anemia of chronic disease Resting dyspnea secondary to the pleural effusion..better after chest tube placement. Hypertension on home medicine will monitor blood pressure.+ Norvasc to 5 mg PO BID.+ Metoprolol. 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 Discussed with patient. Check CBC with diff CMP in AM. Discussed Condition with: Patient Felipe Alvarado MD Jan 24, 2017 20:11
[2017-01-24] MEDS: ACETAMINOPHEN 325 MG TAB PO PRN (20:22)
[2017-01-25] VITALS (9 sets, daily range): BP systolic 126–155; BP diastolic 63–75; PULSE 79–94; RESP 16–18; TEMP 96.3–101.6; O2SAT 96–100
[2017-01-25] MEDS: ACETAMINOPHEN 325 MG TAB PO PRN ×2 (00:24→10:07)
[2017-01-25] MEDS: METOCLOPRAMIDE HCL 10 MG TAB PO SCH ×5 (05:34→21:00)
--- NOTE | 2017-01-25 06:47 | RADRPT ---
EXAM DATE/TIME: 01/25/2017 06:02 [facility] COMPARISON: CHEST SINGLE AP, January 15, 2017, 5:18. INDICATIONS : Pleural effusion. MEDICAL HISTORY : Carcinoma, breast. Renal disease, end stage. Hypertension. SURGICAL HISTORY : Chest tube, right. ENCOUNTER: Initial ACUITY: 3 weeks PAIN SCORE: 0/10 LOCATION: Right chest FINDINGS: Small caliber right chest tube present with loculated air fluid in the right hemithorax. Dense consol idation remains inferiorly. Also small left effusion and mild left basilar airspace disease slightly increased from January 15. CONCLUSION: 1. Small caliber right chest tube and loculated air and fluid in right hemithorax and dense right bas ilar consolidation persisting. Slight increase in left effusion and left basilar airspace disease sin ce January 15. Gideon Jolly MD on January 25, 2017 at 6:44 Board Certified Radiologist. This report was verified electronically.
[2017-01-25] MEDS: PANTOPRAZOLE SOD 20 MG DELAYED RELEASE TAB PO SCH (09:00)
[2017-01-25] MEDS: DOCUSATE SODIUM 50 MG/SENNA 8.6 MG TAB PO SCH ×2 (09:00→21:00)
[2017-01-25 10:02] LABS: AUTOMATED NEUTROPHIL # 13.1 TH/MM3 (1.8-7.7); BASOPHIL % 0.3 % (0.0-2.0); EOSINOPHIL # 0.1 TH/MM3 (0-0.4); EOSINOPHIL % 0.4 % (0.0-4.0); HEMATOCRIT 29.1 % (35.0-46.0); LYMPH % 4.5 % (9.0-44.0); LYMPHOCYTE # 0.7 TH/MM3 (1.0-4.8); MEAN CELL VOLUME 74.4 FL (80.0-100.0); MEAN CORPUSCULAR HEMOGLOBIN 22.7 PG (27.0-34.0); MEAN CORPUSCULAR HGB CONC 30.5 % (32.0-36.0); MONO % 10.4 % (0.0-8.0); NEUT % 84.4 % (16.0-70.0); PLATELET COUNT 201 TH/MM3 (150-450); RED BLOOD COUNT 3.91 MIL/MM3 (4.00-5.30); RED CELL DISTRIBUTION WIDTH 23.5 % (11.6-17.2); WHITE BLOOD COUNT 15.5 TH/MM3 (4.0-11.0)
[2017-01-25 10:05] LABS: HEMO FLAGS AUTO DIFF
[2017-01-25] MEDS: SEVELAMER CARBONATE 800 MG TAB PO SCH ×3 (10:06→18:58)
[2017-01-25] MEDS: LISINOPRIL 5 MG TAB PO SCH ×2 (10:07→21:53)
[2017-01-25] MEDS: VITAMIN B CMPLX/VITC/FOLIC AC CAP PO SCH (10:07)
[2017-01-25] MEDS: METOPROLOL TARTRATE 50 MG TAB PO SCH ×3 (10:07→18:58)
[2017-01-25] MEDS: SODIUM CHLORIDE 0.9% FLUSH 10 ML FLUSH IV FLUSH SCH ×2 (10:14→21:55)
[2017-01-25 10:20] LABS: ALKALINE PHOSPHATASE 69 U/L (45-117); ALT (GPT) 12 U/L (10-53); ANION GAP 7 MEQ/L (5-15); AST (GOT) 10 U/L (15-37); BICARBONATE 30.9 MEQ/L (21.0-32.0); BLOOD UREA NITROGEN 31 MG/DL (7-18); CHLORIDE 93 MEQ/L (98-107); GLOMERULAR FILTRATION RATE 7 ML/MIN (>89); POTASSIUM 4.7 MEQ/L (3.5-5.1); SODIUM (NA) 131 MEQ/L (136-145); TOTAL BILIRUBIN ADULT 0.4 MG/DL (0.2-1.0)
[2017-01-25 10:54] LABS: KERATOCYTES OCC (NORMAL); OVALOCYTES 1+ (NORMAL); TEARDROP RBCS 1+ (NORMAL)
[2017-01-25 10:55] LABS: PLATELET ESTIMATE SMEAR NORMAL (NORMAL); PLATELET MORPHOLOGY NORMAL (NORMAL); SCAN/DIFF AUTO DIFF CONFIRMED
--- NOTE | 2017-01-25 11:09 | HHI.PR ---
Subjective History of Present Illness Patient have high creatinine nephrology following. on hemodialysis better now getting hemodialysis during hospital stay . still have right side chest tube in still draining fluid..once fluid drained out need pleurodehesis drainage getting less. Review of Systems Constitutional Constitutional: Fatigue, Weakness Pulmonary Pulmonary Remarks right side chest tube in place. Vitals/Results Vital Signs Vital Signs Date Time Temp Pulse Resp B/P (MAP) Pulse Ox O2 Delivery O2 Flow Rate FiO2 01/25/17 07:45 100.0 94 18 139/75 (96) 96 01/25/17 04:35 100.6 91 16 137/68 (91) 97 01/25/17 00:20 101.1 94 16 143/65 (91) 97 01/24/17 21:35 100.5 01/24/17 20:35 101.3 101 16 140/65 (90) 98 01/24/17 18:52 Room Air 01/24/17 15:55 80 18 122/78 (93) 97 01/24/17 15:35 80 18 149/80 (103) 97 01/24/17 15:05 80 20 148/78 (101) 97 01/24/17 14:50 83 20 157/87 (110) 97 01/24/17 12:00 100.0 80 16 141/90 (107) 96 CBC/BMP: 01/25/17 0857 01/25/17 0857 Lab Results Laboratory Tests Test 01/25/17 08:57 White Blood Count 15.5 TH/MM3 Red Blood Count 3.91 MIL/MM3 Hemoglobin 8.9 GM/DL Hematocrit 29.1 % Mean Corpuscular Volume 74.4 FL Mean Corpuscular Hemoglobin 22.7 PG Mean Corpuscular Hemoglobin Concent 30.5 % Red Cell Distribution Width 23.5 % Platelet Count 201 TH/MM3 Mean Platelet Volume 10.6 FL Neutrophils (%) (Auto) 84.4 % Lymphocytes (%) (Auto) 4.5 % Monocytes (%) (Auto) 10.4 % Eosinophils (%) (Auto) 0.4 % Basophils (%) (Auto) 0.3 % Neutrophils # (Auto) 13.1 TH/MM3 Lymphocytes # (Auto) 0.7 TH/MM3 Monocytes # (Auto) 1.6 TH/MM3 Eosinophils # (Auto) 0.1 TH/MM3 Basophils # (Auto) 0.0 TH/MM3 CBC Comment AUTO DIFF Differential Comment AUTO DIFF CONFIRMED Platelet Estimate NORMAL Platelet Morphology Comment NORMAL Tear Drop Cells 1+ Ovalocytes 1+ Keratocytes OCC Blood Urea Nitrogen 31 MG/DL Creatinine 7.06 MG/DL Random Glucose 80 MG/DL Total Protein 6.5 GM/DL Albumin 2.1 GM/DL Calcium Level 8.5 MG/DL Alkaline Phosphatase 69 U/L Aspartate Amino Transf (AST/SGOT) 10 U/L Alanine Aminotransferase (ALT/SGPT) 12 U/L Total Bilirubin 0.4 MG/DL Sodium Level 131 MEQ/L Potassium Level 4.7 MEQ/L Chloride Level 93 MEQ/L Carbon Dioxide Level 30.9 MEQ/L Anion Gap 7 MEQ/L Estimat Glomerular Filtration Rate 7 ML/MIN Physical Exam General General Appearance: No Acute Distress, Comfortable Eyes Eye Exam: Sclera White, Extraocular Movement Intact Throat Throat Exam: Oral Mucosa [place] & Moist, Oral Pharynx Normal Neck Neck Exam: Neck Supple, Trachea Midline Pulmonary Resp Exam: Clear Bilaterally, Breath Sounds Equal, No Distress, Decreased Bases Resp Remarks Right side chest tube in. Cardiology CV Exam: Regular Chest/Breast Chest/Breast Remarks right side chest tube in place. Gastrointestinal/Abdomen GI Exam: Soft, Non-Tender, Bowel Sounds Present Musculoskeletal MS Exam: Joints Intact Integumentary Skin Exam: Warm, Dry Extremeties Extremities Exam: Trace Edema Neurologic Neuro Exam: Alert, Awake, Oriented, No Focal Deficits Psychiatric Psych Exam: Appropriate Responses PUD Prophylasis PUD Prophylaxis: Protonix Assessment/Plan Assessment/Plan Assessment and Plan Assessment and Plan Large right sided pleural effusion s/p right side chest tube placement still draining fluid Fluid once fluid drained out need pleurodehesis analysis negative for malignant cell. s/p CT scan of chest and chest x- ray. shows moderate left pleural effusion and Large right Hydropneumothorax with complex loculated component as well as pulmonary consolidation and possible rounded Atelectasis / mass pulmonary managing the patient. S/P Right lung collapse s/p chest tube in place End-stage renal disease was on peritoneal dialysis nephrology following, on hemodialysis now Anemia of chronic disease Resting dyspnea secondary to the pleural effusion..better after chest tube placement. Hypertension on home medicine will monitor blood pressure.+ Norvasc to 5 mg PO BID.+ Metoprolol. 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 Discussed with patient. Check CBC with diff CMP in AM. Discussed Condition with: Patient Felipe Alvarado MD Jan 25, 2017 11:09
--- NOTE | 2017-01-25 11:54 | RADRPT ---
EXAM DATE/TIME: 01/25/2017 11:09 [facility] COMPARISON: CHEST SINGLE AP, January 25, 2017, 6:02. INDICATIONS : Cough and fever. MEDICAL HISTORY : Carcinoma, breast. Renal disease, end stage. Hypertension. SURGICAL HISTORY : None. ENCOUNTER: Initial ACUITY: 1 month PAIN SCORE: 0/10 LOCATION: Bilateral chest FINDINGS: The right chest tube remains in the expected region of the right lung base. Consolidation of the rig ht lung base is stable. Air fluid level is again noted within the right mid lung field posteriorly i ndicating probable loculated hydropneumothorax. The left lung is clear. A tiny left pleural effusio n is stable. The heart is stable. Degenerative changes and scoliosis of the thoracolumbar spine are noted. CONCLUSION: 1. No significant change in the appearance of the right basilar consolidation or probable partially l oculated hydropneumothorax on the right. 2. Tiny left pleural effusion. 3. Degenerative changes and scoliosis of the thoracic spine Jamil Morales MD on January 25, 2017 at 11:23 Board Certified Radiologist. This report was verified electronically.
--- NOTE | 2017-01-25 16:09 | HHI.NPPN ---
Subjective History of Present Illness 56-year-old female with past medical history of hypertension, chronic anemia, history of breast cancer, end-stage renal disease on peritoneal dialysis, history of gastroesophageal reflux disease, history of GI bleeding came to the hospital referred by Dr. Maher her oncologist. The patient has this cough going on for the last five or six months and she had a chest CT done as an outpatient which showed that she has some pleural effusion and she was referred by her oncologist, Dr. Maher, to go to the hospital for possible thoracentesis. Additional Remarks Patient is alert, seen after Pleurodesis, no SOB. Review of Systems General Constitutional: Fatigue Respiratory Lungs: Cough Cardiovascular Cardiac: BACON Objective Data Data 01/25/17 01/26/17 19:00 07:00 Intake Total 600 ml Balance 600 ml Intake Oral 600 ml # Voids 1 # Bowel Movements 1 Vital Signs Date Time Temp Pulse Resp B/P (MAP) Pulse Ox O2 Delivery O2 Flow Rate FiO2 01/25/17 15:31 96.3 83 18 155/75 (101) 98 01/25/17 11:22 99.9 81 18 151/72 (98) 96 01/25/17 07:45 100.0 94 18 139/75 (96) 96 01/25/17 04:35 100.6 91 16 137/68 (91) 97 01/25/17 00:20 101.1 94 16 143/65 (91) 97 01/24/17 21:35 100.5 01/24/17 20:35 101.3 101 16 140/65 (90) 98 01/24/17 18:52 Room Air -: 01/25/17 0857 01/25/17 0857 Physical Exam General Appearance: No Acute Distress, Comfortable Eyes Eye Exam: Sclera White, Extraocular Movement Intact Throat Throat Exam: Oral Mucosa [place] & Moist, Oral Pharynx Normal Neck Neck Exam: Neck Supple, Trachea Midline Pulmonary Resp Exam: Clear Bilaterally, Breath Sounds Equal, No Distress, Decreased Bases Cardiology CV Exam: Regular Gastrointestinal/Abdomen GI Exam: Soft, Non-Tender, Bowel Sounds Present Musculoskeletal MS Exam: Joints Intact Integumentary Skin Exam: Warm, Dry Extremeties Extremities Exam: Trace Edema Neurologic Neuro Exam: Alert, Awake, Oriented, No Focal Deficits Psychiatric Psych Exam: Appropriate Responses PUD Prophylasis PUD Prophylaxis: Protonix Assessment/Plan Assessment Summary: Anemia of CKD, Hypertension, End Stage Renal Disease Problem List: (1) Pleural effusion, right ICD Codes: J90 - Pleural effusion, not elsewhere classified Status: Acute (2) Sinus tachycardia ICD Codes: R00.0 - Tachycardia, unspecified Status: Acute (3) Hypertension ICD Codes: I10 - Essential (primary) hypertension Status: Acute (4) Anemia of chronic kidney failure ICD Codes: N18.9 - Chronic kidney disease, unspecified; D63.1 - Anemia in chronic kidney disease Status: Acute (5) ESRD on peritoneal dialysis ICD Codes: N18.6 - End stage renal disease; Z99.2 - Dependence on renal dialysis Status: Acute Plan Right-sided chest tube. Pulmonary following. BP better On Percocet Hgb. is stable. started on HD and see if improve the Creatinine and Pleural effusion. Creatinine is better, Pulmonary following. Decreased fluid from the chest tube. Creatinine is much better with HD. Pleurodesis done, tolerated well so far. Please see other note 01/25. Problem Qualifiers (1) Hypertension: Qualified Codes: I10 - Essential (primary) hypertension (2) Anemia of chronic kidney failure: Brina Ernst MD Jan 25, 2017 16:09
[2017-01-25] MEDS: CALCITRIOL 0.25 MCG CAP PO SCH (18:58)
--- NOTE | 2017-01-25 18:58 | HHI.NPPN ---
Subjective History of Present Illness 56-year-old female with past medical history of hypertension, chronic anemia, history of breast cancer, end-stage renal disease on peritoneal dialysis, history of gastroesophageal reflux disease, history of GI bleeding came to the hospital referred by Dr. Maher her oncologist. The patient has this cough going on for the last five or six months and she had a chest CT done as an outpatient which showed that she has some pleural effusion and she was referred by her oncologist, Dr. Maher, to go to the hospital for possible thoracentesis. Additional Remarks Patient is alert, sitting on the chair, no chest pain, still with chest tube. Review of Systems General Constitutional: Fatigue Respiratory Lungs: Cough Cardiovascular Cardiac: BACON Objective Data Data 01/25/17 01/26/17 19:00 07:00 Intake Total 600 ml Balance 600 ml Intake Oral 600 ml # Voids 1 # Bowel Movements 1 Vital Signs Date Time Temp Pulse Resp B/P (MAP) Pulse Ox O2 Delivery O2 Flow Rate FiO2 01/25/17 15:31 96.3 83 18 155/75 (101) 98 01/25/17 11:22 99.9 81 18 151/72 (98) 96 01/25/17 07:45 100.0 94 18 139/75 (96) 96 01/25/17 04:35 100.6 91 16 137/68 (91) 97 01/25/17 00:20 101.1 94 16 143/65 (91) 97 01/24/17 21:35 100.5 01/24/17 20:35 101.3 101 16 140/65 (90) 98 -: 01/25/17 0857 01/25/17 0857 Physical Exam General Appearance: No Acute Distress, Comfortable Eyes Eye Exam: Sclera White, Extraocular Movement Intact Throat Throat Exam: Oral Mucosa [place] & Moist, Oral Pharynx Normal Neck Neck Exam: Neck Supple, Trachea Midline Pulmonary Resp Exam: Clear Bilaterally, Breath Sounds Equal, No Distress, Decreased Bases Cardiology CV Exam: Regular Gastrointestinal/Abdomen GI Exam: Soft, Non-Tender, Bowel Sounds Present Musculoskeletal MS Exam: Joints Intact Integumentary Skin Exam: Warm, Dry Extremeties Extremities Exam: Trace Edema Neurologic Neuro Exam: Alert, Awake, Oriented, No Focal Deficits Psychiatric Psych Exam: Appropriate Responses PUD Prophylasis PUD Prophylaxis: Protonix Assessment/Plan Assessment Summary: Anemia of CKD, Hypertension, End Stage Renal Disease Problem List: (1) Pleural effusion, right ICD Codes: J90 - Pleural effusion, not elsewhere classified Status: Acute (2) Sinus tachycardia ICD Codes: R00.0 - Tachycardia, unspecified Status: Acute (3) Hypertension ICD Codes: I10 - Essential (primary) hypertension Status: Acute (4) Anemia of chronic kidney failure ICD Codes: N18.9 - Chronic kidney disease, unspecified; D63.1 - Anemia in chronic kidney disease Status: Acute (5) ESRD on peritoneal dialysis ICD Codes: N18.6 - End stage renal disease; Z99.2 - Dependence on renal dialysis Status: Acute Plan Right-sided chest tube. Pulmonary following. BP better On Percocet Hgb. is stable. started on HD and see if improve the Creatinine and Pleural effusion. Creatinine is better, Pulmonary following. Decreased fluid from the chest tube. Creatinine is much better with HD. Pleurodesis done, tolerated well so far. HD done yesterday, still has chest tube. The repeat CXR noted. Problem Qualifiers (1) Hypertension: Qualified Codes: I10 - Essential (primary) hypertension (2) Anemia of chronic kidney failure: Brina Ernst MD Jan 25, 2017 18:58
--- NOTE | 2017-01-25 19:00 | HHI.PR ---
Subjective Remarks 56 YOAA female with ESRD on PD, pl eff, ca breast Had right chest tube placed No CP no Fever Had Pleurodesis. no chest tube drainage Objective Vital Signs Vital Signs Date Time Temp Pulse Resp B/P (MAP) Pulse Ox O2 Delivery O2 Flow Rate FiO2 01/25/17 15:31 96.3 83 18 155/75 (101) 98 01/25/17 11:22 99.9 81 18 151/72 (98) 96 01/25/17 07:45 100.0 94 18 139/75 (96) 96 01/25/17 04:35 100.6 91 16 137/68 (91) 97 01/25/17 00:20 101.1 94 16 143/65 (91) 97 01/24/17 21:35 100.5 01/24/17 20:35 101.3 101 16 140/65 (90) 98 I/O 01/24/17 01/24/17 01/24/17 01/25/17 01/25/17 01/25/17 07:00 15:00 23:00 07:00 15:00 23:00 Intake Total 120 ml 240 ml 240 ml 600 ml Output Total 0 ml 0 ml 0 ml Balance 120 ml 240 ml 240 ml 600 ml Intake Oral 120 ml 240 ml 240 ml 600 ml Chest Tube Drainage Total 0 ml 0 ml 0 ml # Voids 0 0 0 1 # Bowel Movements 0 0 0 1 Result Diagram: 01/25/1785601/25/1757 Objective Remarks GENERAL: MBMN AA female,NAD SKIN: Warm and dry. HEAD: Normocephalic. EYES: No scleral icterus. No injection or drainage. NECK: Supple, trachea midline. No JVD or lymphadenopathy. CARDIOVASCULAR: Regular rate and rhythm without murmurs, gallops, or rubs. RESPIRATORY: Breath sounds equal bilaterally. No accessory muscle use. Right chest tube draining GASTROINTESTINAL: Abdomen soft, non-tender, nondistended. PD Cathetor MUSCULOSKELETAL: No cyanosis, or edema. BACK: Nontender without obvious deformity. No CVA tenderness. A/P Assessment and Plan Right pleural effusion S/P Chest tube placement ESRD on HD Atelactesis HTN GERD H/O Ca breast PLAN: Chest tube to suction Stable on RA Pleural fluid cytology Negative Monitor chest tube drainage DC chest tube in AM Roel Calle MD Jan 25, 2017 19:00
[2017-01-25] MEDS: RESP: ALBUTEROL 2.5 MG/IPRATROPIUM 0.5 MG NEB (PRN) NEB (20:09)
[2017-01-25] MEDS: SCOPOLAMINE 1.5 MG PATCH T-DERMAL SCH (21:00)
[2017-01-25] MEDS: REMOVE OLD SCOPOLAMINE PATCH T-DERMAL SCH (21:00)
--- NOTE | 2017-01-25 22:38 | RADRPT ---
EXAM DATE/TIME: 01/25/2017 22:05 [facility] COMPARISON: CHEST PA & LAT, January 25, 2017, 11:09. INDICATIONS : Evaluate for pneumothorax MEDICAL HISTORY : Carcinoma, breast. Renal disease, end stage. Hypertension SURGICAL HISTORY : None. ENCOUNTER: Subsequent ACUITY: 1 day PAIN SCORE: 0/10 LOCATION: Right chest FINDINGS: Consolidation, volume loss and a laterally loculated small pleural effusion again seen on the right. Right chest tube has been removed. I don't see a pneumothorax. No left infiltrate. Very small left pleural effusion is unchanged. CONCLUSION: 1. Right chest tube out. No pneumothorax. 2. Consolidation and volume loss again noted on the right. Small, laterally loculated component of ri ght pleural effusion not significantly changed. 3. Very small free-flowing left pleural effusion unchanged. Dave Boogie MD on January 25, 2017 at 22:35 Board Certified Radiologist. This report was verified electronically.
[2017-01-26 04:04] VITALS: BP 143/69; PULSE 89; RESP 18; TEMP 99.1; O2SAT 97
[2017-01-26 07:55] VITALS: BP 152/83; PULSE 87; RESP 19; TEMP 97.1; O2SAT 94
[2017-01-26] MEDS: LISINOPRIL 5 MG TAB PO SCH ×2 (08:40→21:21)
[2017-01-26] MEDS: SEVELAMER CARBONATE 800 MG TAB PO SCH ×3 (08:40→18:08)
[2017-01-26] MEDS: SODIUM CHLORIDE 0.9% FLUSH 10 ML FLUSH IV FLUSH SCH ×2 (08:40→21:25)
[2017-01-26] MEDS: VITAMIN B CMPLX/VITC/FOLIC AC CAP PO SCH (08:40)
[2017-01-26] MEDS: METOPROLOL TARTRATE 50 MG TAB PO SCH ×3 (08:40→18:08)
[2017-01-26] MEDS: METOCLOPRAMIDE HCL 10 MG TAB PO SCH ×4 (08:41→21:00)
[2017-01-26] MEDS: DOCUSATE SODIUM 50 MG/SENNA 8.6 MG TAB PO SCH ×2 (08:41→21:00)
[2017-01-26] MEDS: PANTOPRAZOLE SOD 20 MG DELAYED RELEASE TAB PO SCH (08:41)
--- NOTE | 2017-01-26 10:52 | HHI.NPPN ---
Subjective History of Present Illness 56-year-old female with past medical history of hypertension, chronic anemia, history of breast cancer, end-stage renal disease on peritoneal dialysis, history of gastroesophageal reflux disease, history of GI bleeding came to the hospital referred by Dr. Maher her oncologist. The patient has this cough going on for the last five or six months and she had a chest CT done as an outpatient which showed that she has some pleural effusion and she was referred by her oncologist, Dr. Maher, to go to the hospital for possible thoracentesis. Additional Remarks Patient is alert, seen during HD, has CT fell off. Review of Systems General Constitutional: Fatigue Respiratory Lungs: Cough Cardiovascular Cardiac: BACON Objective Data Data Vital Signs Date Time Temp Pulse Resp B/P (MAP) Pulse Ox O2 Delivery O2 Flow Rate FiO2 01/26/17 08:48 Room Air 01/26/17 07:55 97.1 87 19 152/83 (106) 94 01/26/17 04:04 99.1 89 18 143/69 (93) 97 01/25/17 23:33 96.7 90 17 126/63 (84) 98 01/25/17 20:10 99 01/25/17 20:01 101.6 79 17 147/68 (94) 100 01/25/17 15:31 96.3 83 18 155/75 (101) 98 01/25/17 11:22 99.9 81 18 151/72 (98) 96 -: 01/25/17 0857 01/25/17 0857 Physical Exam General Appearance: No Acute Distress, Comfortable Eyes Eye Exam: Sclera White, Extraocular Movement Intact Throat Throat Exam: Oral Mucosa [place] & Moist, Oral Pharynx Normal Neck Neck Exam: Neck Supple, Trachea Midline Pulmonary Resp Exam: Clear Bilaterally, Breath Sounds Equal, No Distress, Decreased Bases Cardiology CV Exam: Regular Gastrointestinal/Abdomen GI Exam: Soft, Non-Tender, Bowel Sounds Present Musculoskeletal MS Exam: Joints Intact Integumentary Skin Exam: Warm, Dry Extremeties Extremities Exam: Trace Edema Neurologic Neuro Exam: Alert, Awake, Oriented, No Focal Deficits Psychiatric Psych Exam: Appropriate Responses PUD Prophylasis PUD Prophylaxis: Protonix Assessment/Plan Assessment Summary: Anemia of CKD, Hypertension, End Stage Renal Disease Problem List: (1) Pleural effusion, right ICD Codes: J90 - Pleural effusion, not elsewhere classified Status: Acute (2) Sinus tachycardia ICD Codes: R00.0 - Tachycardia, unspecified Status: Acute (3) Hypertension ICD Codes: I10 - Essential (primary) hypertension Status: Acute (4) Anemia of chronic kidney failure ICD Codes: N18.9 - Chronic kidney disease, unspecified; D63.1 - Anemia in chronic kidney disease Status: Acute (5) ESRD on peritoneal dialysis ICD Codes: N18.6 - End stage renal disease; Z99.2 - Dependence on renal dialysis Status: Acute Plan Right-sided chest tube. Pulmonary following. BP better On Percocet Hgb. is stable. started on HD and see if improve the Creatinine and Pleural effusion. Creatinine is better, Pulmonary following. Decreased fluid from the chest tube. Creatinine is much better with HD. Pleurodesis done, tolerated well so far. CT fell off, Pulmonary to follow. Problem Qualifiers (1) Hypertension: Qualified Codes: I10 - Essential (primary) hypertension (2) Anemia of chronic kidney failure: Brina Ernst MD Jan 26, 2017 10:52
[2017-01-26] MEDS: SODIUM CHLOR 0.9% 1000 ML INJ 1,000 ML OTHER PRN (12:10)
[2017-01-26] MEDS: GELATIN 12 MM/7 MM FOAM TOP PRN (12:10)
[2017-01-26 15:50] VITALS: BP 128/61; PULSE 85; RESP 19; TEMP 97; O2SAT 93
--- NOTE | 2017-01-26 16:34 | HHI.PR ---
Subjective Remarks 56 YOAA female with ESRD on PD, pl eff, ca breast No CP no Fever Had Pleurodesis. Chest tube fell off Doing well denies sob Objective Vital Signs Vital Signs Date Time Temp Pulse Resp B/P (MAP) Pulse Ox O2 Delivery O2 Flow Rate FiO2 01/26/17 15:50 97.0 85 19 128/61 (83) 93 01/26/17 08:48 Room Air 01/26/17 07:55 97.1 87 19 152/83 (106) 94 01/26/17 04:04 99.1 89 18 143/69 (93) 97 01/25/17 23:33 96.7 90 17 126/63 (84) 98 01/25/17 20:10 99 01/25/17 20:01 101.6 79 17 147/68 (94) 100 I/O 01/25/17 01/25/17 01/25/17 01/26/17 01/26/17 01/26/17 06:59 14:59 22:59 06:59 14:59 22:59 Intake Total 240 ml 600 ml 480 ml 480 ml 600 ml Output Total 0 ml 2000 ml Balance 240 ml 600 ml 480 ml 480 ml -1400 ml Intake Oral 240 ml 600 ml 480 ml 480 ml 600 ml Chest Tube Drainage Total 0 ml Hemodialysis 2000 ml # Voids 0 1 1 1 # Bowel Movements 0 1 0 0 Result Diagram: 01/25/1757 01/25/17 0857 Objective Remarks GENERAL: MBMN AA female,NAD SKIN: Warm and dry. HEAD: Normocephalic. EYES: No scleral icterus. No injection or drainage. NECK: Supple, trachea midline. No JVD or lymphadenopathy. CARDIOVASCULAR: Regular rate and rhythm without murmurs, gallops, or rubs. RESPIRATORY: Breath sounds equal bilaterally. No accessory muscle use. Right chest tube draining GASTROINTESTINAL: Abdomen soft, non-tender, nondistended. PD Cathetor MUSCULOSKELETAL: No cyanosis, or edema. BACK: Nontender without obvious deformity. No CVA tenderness. A/P Assessment and Plan Right pleural effusion S/P Pleurodesis with Doxycycline ESRD on HD Atelactesis HTN GERD H/O Ca breast PLAN: Pleural fluid cytology Negative Stable on RA DW pt and Family. Roel Calle MD Jan 26, 2017 16:34
--- NOTE | 2017-01-26 18:07 | HHI.PR ---
Subjective History of Present Illness Patient have high creatinine nephrology following. on hemodialysis.. better now getting hemodialysis today . have right side chest tube out than in, still draining fluid..once fluid drained out need pleurodehesis drainage getting less. Review of Systems Constitutional Constitutional: Fatigue, Weakness Pulmonary Pulmonary Remarks right side chest tube in place. Vitals/Results Intake & Output 01/26/17 01/26/17 01/27/17 15:00 23:00 07:00 Intake Total 600 ml Output Total 2000 ml Balance -1400 ml Intake Oral 600 ml Hemodialysis 2000 ml Vital Signs Vital Signs Date Time Temp Pulse Resp B/P (MAP) Pulse Ox O2 Delivery O2 Flow Rate FiO2 01/26/17 15:50 97.0 85 19 128/61 (83) 93 01/26/17 08:48 Room Air 01/26/17 07:55 97.1 87 19 152/83 (106) 94 01/26/17 04:04 99.1 89 18 143/69 (93) 97 01/25/17 23:33 96.7 90 17 126/63 (84) 98 01/25/17 20:10 99 01/25/17 20:01 101.6 79 17 147/68 (94) 100 CBC/BMP: 01/25/17 0857 01/25/17 0857 Physical Exam General General Appearance: No Acute Distress, Comfortable Eyes Eye Exam: Sclera White, Extraocular Movement Intact Throat Throat Exam: Oral Mucosa [place] & Moist, Oral Pharynx Normal Neck Neck Exam: Neck Supple, Trachea Midline Pulmonary Resp Exam: Clear Bilaterally, Breath Sounds Equal, No Distress, Decreased Bases Resp Remarks Right side chest tube in. Cardiology CV Exam: Regular Chest/Breast Chest/Breast Remarks right side chest tube in place. Gastrointestinal/Abdomen GI Exam: Soft, Non-Tender, Bowel Sounds Present Musculoskeletal MS Exam: Joints Intact Integumentary Skin Exam: Warm, Dry Extremeties Extremities Exam: Trace Edema Neurologic Neuro Exam: Alert, Awake, Oriented, No Focal Deficits Psychiatric Psych Exam: Appropriate Responses PUD Prophylasis PUD Prophylaxis: Protonix Assessment/Plan Assessment/Plan Assessment and Plan Assessment and Plan Large right sided pleural effusion s/p right side chest tube placement still draining fluid Fluid once fluid drained out need pleurodehesis analysis negative for malignant cell. s/p CT scan of chest and chest x- ray. shows moderate left pleural effusion and Large right Hydropneumothorax with complex loculated component as well as pulmonary consolidation and possible rounded Atelectasis / mass pulmonary managing the patient. S/P Right lung collapse s/p chest tube in place End-stage renal disease was on peritoneal dialysis nephrology following, on hemodialysis now Anemia of chronic disease Resting dyspnea secondary to the pleural effusion..better after chest tube placement. Hypertension on home medicine will monitor blood pressure.+ Norvasc to 5 mg PO BID.+ Metoprolol. Oncologist and Screen Handler and pulmonary input noted Non sustained venticular tachycardia cardiology input noted on metoprolol Hyperkalemia resolved. Discussed with patient. Check CBC with diff CMP in AM. Discussed Condition with: Patient Felipe Alvarado MD Jan 26, 2017 18:07
[2017-01-26 19:27] VITALS: BP 152/76; PULSE 86; RESP 18; TEMP 100.5; O2SAT 92
[2017-01-26] MEDS: RESP: ALBUTEROL 2.5 MG/IPRATROPIUM 0.5 MG NEB (PRN) NEB (21:33)
[2017-01-26 23:58] VITALS: BP 137/70; PULSE 80; RESP 18; TEMP 100.4; O2SAT 95
[2017-01-27] VITALS (7 sets, daily range): BP systolic 121–156; BP diastolic 67–85; PULSE 74–90; RESP 15–20; TEMP 97.3–101.2; O2SAT 92–96
[2017-01-27] MEDS: ACETAMINOPHEN 325 MG TAB PO PRN ×2 (03:47→18:17)
[2017-01-27 07:34] LABS: AUTOMATED NEUTROPHIL # 10.9 TH/MM3 (1.8-7.7); BASOPHIL % 0.4 % (0.0-2.0); EOSINOPHIL # 0.1 TH/MM3 (0-0.4); EOSINOPHIL % 1.1 % (0.0-4.0); HEMATOCRIT 27.1 % (35.0-46.0); LYMPH % 8.1 % (9.0-44.0); LYMPHOCYTE # 1.1 TH/MM3 (1.0-4.8); MEAN CELL VOLUME 74.2 FL (80.0-100.0); MEAN CORPUSCULAR HEMOGLOBIN 22.8 PG (27.0-34.0); MEAN CORPUSCULAR HGB CONC 30.8 % (32.0-36.0); MONO % 9.1 % (0.0-8.0); NEUT % 81.3 % (16.0-70.0); PLATELET COUNT 272 TH/MM3 (150-450); RED BLOOD COUNT 3.66 MIL/MM3 (4.00-5.30); RED CELL DISTRIBUTION WIDTH 22.5 % (11.6-17.2); WHITE BLOOD COUNT 13.4 TH/MM3 (4.0-11.0)
[2017-01-27 07:45] LABS: ALT (GPT) 14 U/L (10-53); ANION GAP 7 MEQ/L (5-15); AST (GOT) 13 U/L (15-37); BICARBONATE 31.2 MEQ/L (21.0-32.0); BLOOD UREA NITROGEN 29 MG/DL (7-18); CHLORIDE 94 MEQ/L (98-107); GLOMERULAR FILTRATION RATE 8 ML/MIN (>89); POTASSIUM 4.2 MEQ/L (3.5-5.1); SODIUM (NA) 132 MEQ/L (136-145)
[2017-01-27 07:48] LABS: ALKALINE PHOSPHATASE 87 U/L (45-117); TOTAL BILIRUBIN ADULT 0.3 MG/DL (0.2-1.0)
[2017-01-27] MEDS: METOCLOPRAMIDE HCL 10 MG TAB PO SCH ×4 (08:00→23:40)
[2017-01-27 08:12] LABS: HEMO FLAGS AUTO DIFF
[2017-01-27] MEDS: DOCUSATE SODIUM 50 MG/SENNA 8.6 MG TAB PO SCH ×2 (09:00→21:00)
[2017-01-27] MEDS: PANTOPRAZOLE SOD 20 MG DELAYED RELEASE TAB PO SCH (09:00)
--- NOTE | 2017-01-27 09:07 | HHI.PR ---
Subjective History of Present Illness Patient have high creatinine nephrology following. on hemodialysis.. better now getting hemodialysis today . right side chest tube fell off, Review of Systems Constitutional Constitutional: Fatigue, Weakness Pulmonary Pulmonary Remarks right side chest tube in place. Vitals/Results Vital Signs Vital Signs Date Time Temp Pulse Resp B/P (MAP) Pulse Ox O2 Delivery O2 Flow Rate FiO2 01/27/17 08:00 98.2 83 20 145/70 (95) 94 01/27/17 04:47 99.7 01/27/17 04:47 99.7 01/27/17 03:46 101.2 90 17 140/69 (92) 96 01/26/17 23:58 100.4 80 18 137/70 (92) 95 01/26/17 20:00 Room Air 01/26/17 19:27 100.5 86 18 152/76 (101) 92 01/26/17 15:50 97.0 85 19 128/61 (83) 93 CBC/BMP: 01/27/17 0622 01/27/17 0622 Lab Results Laboratory Tests Test 01/27/17 06:22 White Blood Count 13.4 TH/MM3 Red Blood Count 3.66 MIL/MM3 Hemoglobin 8.3 GM/DL Hematocrit 27.1 % Mean Corpuscular Volume 74.2 FL Mean Corpuscular Hemoglobin 22.8 PG Mean Corpuscular Hemoglobin Concent 30.8 % Red Cell Distribution Width 22.5 % Platelet Count 272 TH/MM3 Mean Platelet Volume 11.2 FL Neutrophils (%) (Auto) 81.3 % Lymphocytes (%) (Auto) 8.1 % Monocytes (%) (Auto) 9.1 % Eosinophils (%) (Auto) 1.1 % Basophils (%) (Auto) 0.4 % Neutrophils # (Auto) 10.9 TH/MM3 Lymphocytes # (Auto) 1.1 TH/MM3 Monocytes # (Auto) 1.2 TH/MM3 Eosinophils # (Auto) 0.1 TH/MM3 Basophils # (Auto) 0.0 TH/MM3 CBC Comment AUTO DIFF Blood Urea Nitrogen 29 MG/DL Creatinine 6.83 MG/DL Random Glucose 81 MG/DL Total Protein 7.0 GM/DL Albumin 2.2 GM/DL Calcium Level 8.8 MG/DL Alkaline Phosphatase 87 U/L Aspartate Amino Transf (AST/SGOT) 13 U/L Alanine Aminotransferase (ALT/SGPT) 14 U/L Total Bilirubin 0.3 MG/DL Sodium Level 132 MEQ/L Potassium Level 4.2 MEQ/L Chloride Level 94 MEQ/L Carbon Dioxide Level 31.2 MEQ/L Anion Gap 7 MEQ/L Estimat Glomerular Filtration Rate 8 ML/MIN Physical Exam General General Appearance: No Acute Distress, Comfortable Eyes Eye Exam: Sclera White, Extraocular Movement Intact Throat Throat Exam: Oral Mucosa [place] & Moist, Oral Pharynx Normal Neck Neck Exam: Neck Supple, Trachea Midline Pulmonary Resp Exam: Clear Bilaterally, Breath Sounds Equal, No Distress, Decreased Bases Resp Remarks Right side chest tube in. Cardiology CV Exam: Regular Chest/Breast Chest/Breast Remarks right side chest tube in place. Gastrointestinal/Abdomen GI Exam: Soft, Non-Tender, Bowel Sounds Present Musculoskeletal MS Exam: Joints Intact Integumentary Skin Exam: Warm, Dry Extremeties Extremities Exam: Trace Edema Neurologic Neuro Exam: Alert, Awake, Oriented, No Focal Deficits Psychiatric Psych Exam: Appropriate Responses PUD Prophylasis PUD Prophylaxis: Protonix Assessment/Plan Assessment/Plan Assessment and Plan Assessment and Plan Large right sided pleural effusion s/p right side chest tube placement chest tube fell out. s/p CT scan of chest and chest x- ray. shows moderate left pleural effusion and Large right Hydropneumothorax with complex loculated component as well as pulmonary consolidation and possible rounded Atelectasis / mass pulmonary managing the patient. S/P Right lung collapse resolved. End-stage renal disease was on peritoneal dialysis nephrology following, on hemodialysis now Anemia of chronic disease Resting dyspnea secondary to the pleural effusion..better after chest tube placement. Hypertension on home medicine will monitor blood pressure.+ Norvasc to 5 mg PO BID.+ Metoprolol. Oncologist and Market Research Worker and pulmonary input noted Non sustained venticular tachycardia cardiology input noted on metoprolol Hyperkalemia resolved. Discussed with patient. Check CBC with diff CMP in AM. Discussed Condition with: Patient Felipe Alvarado MD Jan 27, 2017 09:07
[2017-01-27] MEDS: VITAMIN B CMPLX/VITC/FOLIC AC CAP PO SCH (09:22)
[2017-01-27] MEDS: SEVELAMER CARBONATE 800 MG TAB PO SCH ×3 (09:22→18:09)
[2017-01-27] MEDS: METOPROLOL TARTRATE 50 MG TAB PO SCH ×2 (09:23→18:14)
[2017-01-27] MEDS: LISINOPRIL 5 MG TAB PO SCH ×2 (09:23→23:39)
[2017-01-27] MEDS: SODIUM CHLORIDE 0.9% FLUSH 10 ML FLUSH IV FLUSH SCH ×2 (09:25→23:41)
[2017-01-27 09:41] LABS: KERATOCYTES OCC (NORMAL); OVALOCYTES 1+ (NORMAL); PLATELET ESTIMATE SMEAR NORMAL (NORMAL); PLATELET MORPHOLOGY ENLARGED (NORMAL); SCAN/DIFF AUTO DIFF CONFIRMED; TEARDROP RBCS 1+ (NORMAL)
--- NOTE | 2017-01-27 10:40 | HHI.NPPN ---
Subjective History of Present Illness 56-year-old female with past medical history of hypertension, chronic anemia, history of breast cancer, end-stage renal disease on peritoneal dialysis, history of gastroesophageal reflux disease, history of GI bleeding came to the hospital referred by Dr. Maher her oncologist. The patient has this cough going on for the last five or six months and she had a chest CT done as an outpatient which showed that she has some pleural effusion and she was referred by her oncologist, Dr. Maher, to go to the hospital for possible thoracentesis. Additional Remarks Sitting up in bed, awake/alert. Tolerated dialysis yesterday. Chest tube remains out. (Theresa Rubio) Review of Systems General Constitutional: Fatigue (Theresa Rubio) Respiratory Lungs: SOB, Cough (Theresa Rubio) Cardiovascular Cardiac: BACON (Theresa Rubio) Objective Data Data Vital Signs Date Time Temp Pulse Resp B/P (MAP) Pulse Ox O2 Delivery O2 Flow Rate FiO2 01/27/17 08:00 98.2 83 20 145/70 (95) 94 01/27/17 04:47 99.7 01/27/17 04:47 99.7 01/27/17 03:46 101.2 90 17 140/69 (92) 96 01/26/17 23:58 100.4 80 18 137/70 (92) 95 01/26/17 20:00 Room Air 01/26/17 19:27 100.5 86 18 152/76 (101) 92 01/26/17 15:50 97.0 85 19 128/61 (83) 93 (Theresa Rubio) -: 01/27/1762101/27/17621 Imaging Last Impressions Chest X-Ray 01/25/17599 Signed Impressions: Service Date/Time: Wednesday, January 25, 2017 06:02 - CONCLUSION: 1. Small caliber right chest tube and loculated air and fluid in right hemithorax and dense right basilar consolidation persisting. Slight increase in left effusion and left basilar airspace disease since January 15. Gideon Jolly MD Pleurodesis 01/24/17599 Signed Impressions: Service Date/Time: Tuesday, January 24, 2017 14:00 - CONCLUSION: Uncomplicated chemical pleurodesis as above. Mani Avilez MD Chest Tube Insertion 12/28/16 0000 Signed Impressions: Service Date/Time: Wednesday, December 28, 2016 10:05 - CONCLUSION: Uncomplicated chest tube placement as above. The output will need to be monitored for several days to evaluate the volume of output. Consideration can be made to pleurodesis if the output is sufficient. Lawrence Taylor Jr., MD Tubes & Lines: Perma-Cath (Theresa Rubio B. COIL CONNE[employer]) Physical Exam General Appearance: Well Developed, No Acute Distress, Comfortable (Theresa Rubio B. [employer]) Eyes Eye Exam: Sclera White, Extraocular Movement Intact (JoanneTheresa B. COIL CONNECTOR) Throat Throat Exam: Oral Mucosa [place] & Moist, Oral Pharynx Normal (JoanneTheresa B. COIL CONNECTOR) Neck Neck Exam: Neck Supple, Trachea Midline (JoanneTheresa B. COIL CONNECTOR) Pulmonary Resp Exam: Clear Bilaterally, Breath Sounds Equal, No Distress, Decreased Bases Resp Remarks decreased lung sounds on right (Neel Rubioon B. [employer] CONNE[employer]) Cardiology CV Exam: Regular (Theresa Rubio B. [employer]) Gastrointestinal/Abdomen GI Exam: Soft, Non-Tender, Bowel Sounds Present (Neel Rubioon B. [employer]) Musculoskeletal MS Exam: Joints Intact, Normal Gait, Normal Tone, Good Strength (JoanneTheresa B. [employer] CONNECTOR) Integumentary Skin Exam: Clear, Warm, Dry, Intact (JoanneTheresa B. [employer] CONNECTOR) Extremeties Extremities Exam: No Edema, Pedal Pulses Palpable (Neel Rubioon B. [employer]) Neurologic Neuro Exam: Alert, Awake, Oriented, Speech Clear, Moving All Extremities, No Focal Deficits (Theresa Rubio B. [employer]) Psychiatric Psych Exam: Appropriate Responses (Theresa Rubio B. [employer]) PUD Prophylasis PUD Prophylaxis: Protonix (Neel Rubioon B. [employer]) Assessment/Plan Discussed Condition With: Patient Assessment Summary: Anemia of CKD, Hypertension, End Stage Renal Disease Problem List: (1) ESRD on peritoneal dialysis ICD Codes: N18.6 - End stage renal disease; Z99.2 - Dependence on renal dialysis Status: Acute Plan: Converted to HD s/p permcath placement 2L UF yesterday, tolerated well (2) Pleural effusion, right ICD Codes: J90 - Pleural effusion, not elsewhere classified Status: Acute Plan: chest tube fell out pulmonary following monitor on room air (3) Sinus tachycardia ICD Codes: R00.0 - Tachycardia, unspecified Status: Acute Plan: corrected, monitor for recurrence (4) Hypertension ICD Codes: I10 - Essential (primary) hypertension Status: Acute Plan: continue ordered medications (5) Anemia of chronic kidney failure ICD Codes: N18.9 - Chronic kidney disease, unspecified; D63.1 - Anemia in chronic kidney disease Status: Acute Plan: Start epogen with HD she got 40K units on 01/12 (Theresa Rubio) Plan patient was seen and examined. Agree with above assessment and plan. Dialysis TTS. (Harvinder Lovell MD) Problem Qualifiers (1) Hypertension: Qualified Codes: I10 - Essential (primary) hypertension (2) Anemia of chronic kidney failure: Theresa Rubio Jan 27, 2017 10:40 Harvinder Lovell MD Jan 27, 2017 14:05
[2017-01-27] MEDS ORDERED: EPOETIN ALFA 10,000 UNITS/ML VIAL IV PRN (11:15)
[2017-01-27] MEDS: CALCITRIOL 0.25 MCG CAP PO SCH (18:17)
--- NOTE | 2017-01-27 18:49 | HHI.PR ---
Subjective Remarks 56 YOAA female with ESRD on PD, pl eff, ca breast No CP no Fever Had Pleurodesis. Chest tube fell off Doing well Has cough, congestion Objective Vital Signs Vital Signs Date Time Temp Pulse Resp B/P (MAP) Pulse Ox O2 Delivery O2 Flow Rate FiO2 01/27/17 16:00 100.3 86 20 156/85 (108) 92 01/27/17 12:00 99.5 81 20 133/84 (100) 93 01/27/17 08:00 98.2 83 20 145/70 (95) 94 01/27/17 04:47 99.7 01/27/17 04:47 99.7 01/27/17 03:46 101.2 90 17 140/69 (92) 96 01/26/17 23:58 100.4 80 18 137/70 (92) 95 01/26/17 20:00 Room Air 01/26/17 19:27 100.5 86 18 152/76 (101) 92 I/O 01/26/17 01/26/17 01/26/17 01/27/17 01/27/17 01/27/17 07:00 15:00 23:00 07:00 15:00 23:00 Intake Total 480 ml 600 ml 480 ml 360 ml 480 ml Output Total 2000 ml Balance 480 ml -1400 ml 480 ml 360 ml 480 ml Intake Oral 480 ml 600 ml 480 ml 360 ml 480 ml Hemodialysis 2000 ml # Voids 1 1 0 0 # Bowel Movements 0 1 0 Result Diagram: 01/27/17 0622 01/27/17 0622 Objective Remarks GENERAL: MBMN AA female,NAD SKIN: Warm and dry. HEAD: Normocephalic. EYES: No scleral icterus. No injection or drainage. NECK: Supple, trachea midline. No JVD or lymphadenopathy. CARDIOVASCULAR: Regular rate and rhythm without murmurs, gallops, or rubs. RESPIRATORY: Breath sounds equal bilaterally. No accessory muscle use. Right chest tube draining GASTROINTESTINAL: Abdomen soft, non-tender, nondistended. PD Cathetor MUSCULOSKELETAL: No cyanosis, or edema. BACK: Nontender without obvious deformity. No CVA tenderness. A/P Assessment and Plan Right pleural effusion S/P Pleurodesis with Doxycycline ESRD on HD Atelactesis HTN GERD H/O Ca breast PLAN: Pleural fluid cytology Negative Stable on RA DW pt and Family. Robitussin DM cough yairp Roel Calle MD Jan 27, 2017 18:49
[2017-01-27] MEDS: guaiFENesin/DEXTROMETHORPHAN 200 MG/20 MG/10 ML CUP PO SCH (23:45)
[2017-01-28] VITALS (8 sets, daily range): BP systolic 119–150; BP diastolic 7–77; PULSE 73–91; RESP 16–20; TEMP 95.9–100.7; O2SAT 92–100
[2017-01-28] MEDS: ACETAMINOPHEN 325 MG TAB PO PRN ×3 (04:15→20:17)
[2017-01-28] MEDS: guaiFENesin/DEXTROMETHORPHAN 200 MG/20 MG/10 ML CUP PO SCH ×4 (06:00→17:05)
[2017-01-28] MEDS: METOCLOPRAMIDE HCL 10 MG TAB PO SCH ×5 (07:01→20:22)
[2017-01-28] MEDS: VITAMIN B CMPLX/VITC/FOLIC AC CAP PO SCH (08:07)
[2017-01-28] MEDS: LISINOPRIL 5 MG TAB PO SCH ×2 (08:07→20:16)
[2017-01-28] MEDS: METOPROLOL TARTRATE 50 MG TAB PO SCH ×3 (08:07→17:05)
[2017-01-28] MEDS: SEVELAMER CARBONATE 800 MG TAB PO SCH ×3 (08:07→17:05)
[2017-01-28] MEDS: SODIUM CHLORIDE 0.9% FLUSH 10 ML FLUSH IV FLUSH SCH ×2 (08:08→20:19)
[2017-01-28] MEDS: DOCUSATE SODIUM 50 MG/SENNA 8.6 MG TAB PO SCH ×3 (08:11→20:22)
[2017-01-28] MEDS: PANTOPRAZOLE SOD 20 MG DELAYED RELEASE TAB PO SCH (08:11)
[2017-01-28 08:56] LABS: AUTOMATED NEUTROPHIL # 10.1 TH/MM3 (1.8-7.7); BASOPHIL # 0.1 TH/MM3 (0-0.2); BASOPHIL % 1.1 % (0.0-2.0); EOSINOPHIL # 0.2 TH/MM3 (0-0.4); EOSINOPHIL % 1.3 % (0.0-4.0); HEMATOCRIT 28.7 % (35.0-46.0); LYMPH % 7.1 % (9.0-44.0); LYMPHOCYTE # 0.9 TH/MM3 (1.0-4.8); MEAN CELL VOLUME 74.7 FL (80.0-100.0); MEAN CORPUSCULAR HEMOGLOBIN 23.1 PG (27.0-34.0); MEAN CORPUSCULAR HGB CONC 30.9 % (32.0-36.0); NEUT % 83.5 % (16.0-70.0); PLATELET COUNT 339 TH/MM3 (150-450); RED BLOOD COUNT 3.85 MIL/MM3 (4.00-5.30); RED CELL DISTRIBUTION WIDTH 22.2 % (11.6-17.2); WHITE BLOOD COUNT 12.1 TH/MM3 (4.0-11.0)
[2017-01-28 08:57] LABS: HEMO FLAGS AUTO DIFF
[2017-01-28 09:36] LABS: ALKALINE PHOSPHATASE 113 U/L (45-117); ALT (GPT) 19 U/L (10-53); ANION GAP 9 MEQ/L (5-15); AST (GOT) 17 U/L (15-37); BICARBONATE 29.4 MEQ/L (21.0-32.0); BLOOD UREA NITROGEN 48 MG/DL (7-18); CHLORIDE 91 MEQ/L (98-107); GLOMERULAR FILTRATION RATE 6 ML/MIN (>89); POTASSIUM 4.4 MEQ/L (3.5-5.1); SODIUM (NA) 129 MEQ/L (136-145); TOTAL BILIRUBIN ADULT 0.4 MG/DL (0.2-1.0)
[2017-01-28 09:47] LABS: OVALOCYTES 1+ (NORMAL); TARGET CELLS 1+ (NORMAL); TEARDROP RBCS 1+ (NORMAL)
[2017-01-28 09:48] LABS: ACANTHOCYTES OCC (NORMAL); HELMET CELLS OCC (NORMAL); KERATOCYTES OCC (NORMAL)
[2017-01-28 09:49] LABS: SCAN/DIFF AUTO DIFF CONFIRMED
--- NOTE | 2017-01-28 10:33 | HHI.NPPN ---
Subjective History of Present Illness 56-year-old female with past medical history of hypertension, chronic anemia, history of breast cancer, end-stage renal disease on peritoneal dialysis, history of gastroesophageal reflux disease, history of GI bleeding came to the hospital referred by Dr. Maher her oncologist. The patient has this cough going on for the last five or six months and she had a chest CT done as an outpatient which showed that she has some pleural effusion and she was referred by her oncologist, Dr. Maher, to go to the hospital for possible thoracentesis. Additional Remarks patient was seen during dialysis. Complains of cough. Comfortable otherwise. Review of Systems General Constitutional: Fatigue Respiratory Lungs: SOB, Cough Cardiovascular Cardiac: BACON Objective Data Data Vital Signs Date Time Temp Pulse Resp B/P (MAP) Pulse Ox O2 Delivery O2 Flow Rate FiO2 01/28/17 08:03 Room Air 01/28/17 08:00 95.9 75 20 150/75 (100) 93 01/28/17 07:16 74 01/28/17 05:15 18 01/28/17 04:00 100.7 91 16 145/77 (99) 95 01/28/17 03:20 Room Air 01/28/17 00:00 98.2 73 16 147/71 (96) 98 01/27/17 21:00 97.3 74 15 121/67 (85) 94 01/27/17 17:00 100.8 88 15 156/85 (108) 95 01/27/17 16:00 100.3 86 20 156/85 (108) 92 01/27/17 12:00 99.5 81 20 133/84 (100) 93 -: 01/28/17 0833 01/28/17 0833 Tubes & Lines: Perma-Cath Physical Exam General Appearance: Well Developed, No Acute Distress, Comfortable Eyes Eye Exam: Sclera White, Extraocular Movement Intact Throat Throat Exam: Oral Mucosa [place] & Moist, Oral Pharynx Normal Neck Neck Exam: Neck Supple, Trachea Midline Pulmonary Resp Exam: Clear Bilaterally, Breath Sounds Equal, No Distress, Decreased Bases Cardiology CV Exam: Regular Gastrointestinal/Abdomen GI Exam: Soft, Non-Tender, Bowel Sounds Present Musculoskeletal MS Exam: Joints Intact, Normal Gait, Normal Tone, Good Strength Integumentary Skin Exam: Clear, Warm, Dry, Intact Extremeties Extremities Exam: No Edema, Pedal Pulses Palpable Neurologic Neuro Exam: Alert, Awake, Oriented, Speech Clear, Moving All Extremities, No Focal Deficits Psychiatric Psych Exam: Appropriate Responses PUD Prophylasis PUD Prophylaxis: Protonix Assessment/Plan Discussed Condition With: Patient Assessment Summary: Anemia of CKD, Hypertension, End Stage Renal Disease Problem List: (1) ESRD on peritoneal dialysis ICD Codes: N18.6 - End stage renal disease; Z99.2 - Dependence on renal dialysis Status: Acute Plan: Seen during HD, On 3K, UF is 2 liters, BFR is 320 ml/min. (2) Pleural effusion, right ICD Codes: J90 - Pleural effusion, not elsewhere classified Status: Acute Plan: chest tube fell out pulmonary following monitor on room air (3) Sinus tachycardia ICD Codes: R00.0 - Tachycardia, unspecified Status: Acute Plan: corrected, monitor for recurrence (4) Hypertension ICD Codes: I10 - Essential (primary) hypertension Status: Acute Plan: continue ordered medications (5) Anemia of chronic kidney failure ICD Codes: N18.9 - Chronic kidney disease, unspecified; D63.1 - Anemia in chronic kidney disease Status: Acute Plan: Start epogen with HD she got 40K units on 01/12 Problem Qualifiers (1) Hypertension: Qualified Codes: I10 - Essential (primary) hypertension (2) Anemia of chronic kidney failure: Harvinder Lovell MD Jan 28, 2017 10:33
--- NOTE | 2017-01-28 11:33 | HHI.PR ---
Subjective History of Present Illness Patient have high creatinine nephrology following. on hemodialysis. better now getting hemodialysis today . Review of Systems Constitutional Constitutional: Fatigue, Weakness Pulmonary Pulmonary Remarks right side chest tube in place. Vitals/Results Vital Signs Vital Signs Date Time Temp Pulse Resp B/P (MAP) Pulse Ox O2 Delivery O2 Flow Rate FiO2 01/28/17 08:03 Room Air 01/28/17 08:00 95.9 75 20 150/75 (100) 93 01/28/17 07:16 74 01/28/17 05:15 18 01/28/17 04:00 100.7 91 16 145/77 (99) 95 01/28/17 03:20 Room Air 01/28/17 00:00 98.2 73 16 147/71 (96) 98 01/27/17 21:00 97.3 74 15 121/67 (85) 94 01/27/17 17:00 100.8 88 15 156/85 (108) 95 01/27/17 16:00 100.3 86 20 156/85 (108) 92 01/27/17 12:00 99.5 81 20 133/84 (100) 93 CBC/BMP: 01/28/17 0833 01/28/17 0833 Lab Results Laboratory Tests Test 01/28/17 08:33 White Blood Count 12.1 TH/MM3 Red Blood Count 3.85 MIL/MM3 Hemoglobin 8.9 GM/DL Hematocrit 28.7 % Mean Corpuscular Volume 74.7 FL Mean Corpuscular Hemoglobin 23.1 PG Mean Corpuscular Hemoglobin Concent 30.9 % Red Cell Distribution Width 22.2 % Platelet Count 339 TH/MM3 Mean Platelet Volume 11.2 FL Neutrophils (%) (Auto) 83.5 % Lymphocytes (%) (Auto) 7.1 % Monocytes (%) (Auto) 7.0 % Eosinophils (%) (Auto) 1.3 % Basophils (%) (Auto) 1.1 % Neutrophils # (Auto) 10.1 TH/MM3 Lymphocytes # (Auto) 0.9 TH/MM3 Monocytes # (Auto) 0.8 TH/MM3 Eosinophils # (Auto) 0.2 TH/MM3 Basophils # (Auto) 0.1 TH/MM3 CBC Comment AUTO DIFF Differential Comment AUTO DIFF CONFIRMED Target Cells 1+ Tear Drop Cells 1+ Ovalocytes 1+ Helmet Cells OCC Acanthocytes OCC Keratocytes OCC Blood Urea Nitrogen 48 MG/DL Creatinine 8.60 MG/DL Random Glucose 88 MG/DL Total Protein 7.4 GM/DL Albumin 2.4 GM/DL Calcium Level 9.3 MG/DL Alkaline Phosphatase 113 U/L Aspartate Amino Transf (AST/SGOT) 17 U/L Alanine Aminotransferase (ALT/SGPT) 19 U/L Total Bilirubin 0.4 MG/DL Sodium Level 129 MEQ/L Potassium Level 4.4 MEQ/L Chloride Level 91 MEQ/L Carbon Dioxide Level 29.4 MEQ/L Anion Gap 9 MEQ/L Estimat Glomerular Filtration Rate 6 ML/MIN Physical Exam General General Appearance: Well Developed, No Acute Distress, Comfortable Eyes Eye Exam: Sclera White, Extraocular Movement Intact Throat Throat Exam: Oral Mucosa [place] & Moist, Oral Pharynx Normal Neck Neck Exam: Neck Supple, Trachea Midline Pulmonary Resp Exam: Clear Bilaterally, Breath Sounds Equal, No Distress, Decreased Bases Resp Remarks Right side chest tube in. Cardiology CV Exam: Regular Chest/Breast Chest/Breast Remarks right side chest tube in place. Gastrointestinal/Abdomen GI Exam: Soft, Non-Tender, Bowel Sounds Present Musculoskeletal MS Exam: Joints Intact, Normal Gait, Normal Tone, Good Strength Integumentary Skin Exam: Clear, Warm, Dry, Intact Extremeties Extremities Exam: No Edema, Pedal Pulses Palpable Neurologic Neuro Exam: Alert, Awake, Oriented, Speech Clear, Moving All Extremities, No Focal Deficits Psychiatric Psych Exam: Appropriate Responses PUD Prophylasis PUD Prophylaxis: Protonix Assessment/Plan Assessment/Plan Assessment and Plan Assessment and Plan Large right sided pleural effusion s/p right side chest tube placement chest tube fell out. s/p CT scan of chest and chest x- ray. shows moderate left pleural effusion and Large right Hydropneumothorax with complex loculated component as well as pulmonary consolidation and possible rounded Atelectasis / mass pulmonary managing the patient. S/P Right lung collapse resolved. End-stage renal disease was on peritoneal dialysis nephrology following, on hemodialysis now Anemia of chronic disease Resting dyspnea secondary to the pleural effusion..better after chest tube placement. Hypertension on home medicine will monitor blood pressure.+ Norvasc to 5 mg PO BID.+ Metoprolol. Oncologist and Wire Temperer and pulmonary input noted Non sustained venticular tachycardia cardiology input noted on metoprolol Hyperkalemia resolved. Discussed with patient. Check CBC with diff CMP in AM. Felipe Alvarado MD Jan 28, 2017 11:33
[2017-01-28] MEDS: GELATIN 12 MM/7 MM FOAM TOP PRN (11:34)
--- NOTE | 2017-01-28 15:57 | HHI.PR ---
Subjective Remarks 56 YOAA female with ESRD on PD, pl eff, ca breast No CP no Fever Had Pleurodesis. Chest tube fell off Doing well Has cough, congestion, no sob Objective Vital Signs Vital Signs Date Time Temp Pulse Resp B/P (MAP) Pulse Ox O2 Delivery O2 Flow Rate FiO2 01/28/17 13:09 98.4 83 135/7 (49) 94 01/28/17 08:03 Room Air 01/28/17 08:00 95.9 75 20 150/75 (100) 93 01/28/17 07:16 74 01/28/17 05:15 18 01/28/17 04:00 100.7 91 16 145/77 (99) 95 01/28/17 03:20 Room Air 01/28/17 00:00 98.2 73 16 147/71 (96) 98 01/27/17 21:00 97.3 74 15 121/67 (85) 94 01/27/17 17:00 100.8 88 15 156/85 (108) 95 01/27/17 16:00 100.3 86 20 156/85 (108) 92 I/O 01/27/17 01/27/17 01/27/17 01/28/17 01/28/17 01/28/17 07:00 15:00 23:00 07:00 15:00 23:00 Intake Total 360 ml 480 ml 240 ml 240 ml Output Total 2000 ml Balance 360 ml 480 ml 240 ml 240 ml -2000 ml Intake Oral 360 ml 480 ml 240 ml 240 ml Hemodialysis 2000 ml # Voids 0 0 0 0 # Bowel Movements 0 0 0 Result Diagram: 01/28/1783201/28/17832 Objective Remarks GENERAL: MBMN AA female,NAD SKIN: Warm and dry. HEAD: Normocephalic. EYES: No scleral icterus. No injection or drainage. NECK: Supple, trachea midline. No JVD or lymphadenopathy. CARDIOVASCULAR: Regular rate and rhythm without murmurs, gallops, or rubs. RESPIRATORY: Breath sounds equal bilaterally. No accessory muscle use. Right chest tube draining GASTROINTESTINAL: Abdomen soft, non-tender, nondistended. PD Cathetor MUSCULOSKELETAL: No cyanosis, or edema. BACK: Nontender without obvious deformity. No CVA tenderness. A/P Assessment and Plan Right pleural effusion S/P Pleurodesis with Doxycycline ESRD on HD Atelactesis HTN GERD H/O Ca breast PLAN: Pleural fluid cytology Negative Stable on RA DW pt and Family. Robitussin DM cough syp Stable from pulm standpoint. Roel Calle MD Jan 28, 2017 15:57
[2017-01-28] MEDS: REMOVE OLD SCOPOLAMINE PATCH T-DERMAL SCH (20:19)
[2017-01-28] MEDS: SCOPOLAMINE 1.5 MG PATCH T-DERMAL SCH (20:20)
[2017-01-29] VITALS (7 sets, daily range): BP systolic 106–154; BP diastolic 52–77; PULSE 75–97; RESP 16–18; TEMP 97.2–100.4; O2SAT 94–99
[2017-01-29] MEDS: guaiFENesin/DEXTROMETHORPHAN 200 MG/20 MG/10 ML CUP PO SCH ×5 (04:56→23:57)
[2017-01-29] MEDS: ACETAMINOPHEN 325 MG TAB PO PRN ×2 (04:56→08:30)
[2017-01-29] MEDS: METOCLOPRAMIDE HCL 10 MG TAB PO SCH ×4 (08:00→22:38)
[2017-01-29] MEDS: SEVELAMER CARBONATE 800 MG TAB PO SCH ×3 (08:30→16:50)
[2017-01-29] MEDS: VITAMIN B CMPLX/VITC/FOLIC AC CAP PO SCH (08:30)
[2017-01-29] MEDS: METOPROLOL TARTRATE 50 MG TAB PO SCH ×3 (08:30→16:50)
[2017-01-29] MEDS: DOCUSATE SODIUM 50 MG/SENNA 8.6 MG TAB PO SCH ×2 (08:31→22:38)
[2017-01-29] MEDS: LISINOPRIL 5 MG TAB PO SCH ×2 (08:31→22:38)
[2017-01-29] MEDS: PANTOPRAZOLE SOD 20 MG DELAYED RELEASE TAB PO SCH (08:32)
[2017-01-29] MEDS: SODIUM CHLORIDE 0.9% FLUSH 10 ML FLUSH IV FLUSH SCH ×2 (08:34→22:39)
[2017-01-29] MEDS: RESP: ALBUTEROL 2.5 MG/IPRATROPIUM 0.5 MG NEB (PRN) NEB ×2 (11:48→22:48)
--- NOTE | 2017-01-29 12:06 | HHI.PR ---
Subjective History of Present Illness Patient have high creatinine nephrology following. on hemodialysis. better now discharge plan when ok with nephrology and pulmonary. Review of Systems Constitutional Constitutional: Fatigue, Weakness Pulmonary Pulmonary Remarks right side chest tube in place. Vitals/Results Vital Signs Vital Signs Date Time Temp Pulse Resp B/P (MAP) Pulse Ox O2 Delivery O2 Flow Rate FiO2 01/29/17 11:18 75 01/29/17 08:00 97.2 79 16 151/74 (99) 98 01/29/17 04:25 100.1 90 16 154/77 (102) 94 01/29/17 00:30 98.5 79 16 106/52 (70) 95 01/28/17 20:30 100.7 81 16 119/69 (86) 100 01/28/17 20:00 86 01/28/17 16:00 99.2 84 20 139/72 (94) 92 01/28/17 13:09 98.4 83 135/7 (49) 94 CBC/BMP: 01/28/17 0833 01/28/17 0833 Physical Exam General General Appearance: Well Developed, No Acute Distress, Comfortable Eyes Eye Exam: Sclera White, Extraocular Movement Intact Throat Throat Exam: Oral Mucosa [place] & Moist, Oral Pharynx Normal Neck Neck Exam: Neck Supple, Trachea Midline Pulmonary Resp Exam: Clear Bilaterally, Breath Sounds Equal, No Distress, Decreased Bases Resp Remarks Right side chest tube in. Cardiology CV Exam: Regular Chest/Breast Chest/Breast Remarks right side chest tube in place. Gastrointestinal/Abdomen GI Exam: Soft, Non-Tender, Bowel Sounds Present Musculoskeletal MS Exam: Joints Intact, Normal Gait, Normal Tone, Good Strength Integumentary Skin Exam: Clear, Warm, Dry, Intact Extremeties Extremities Exam: No Edema, Pedal Pulses Palpable Neurologic Neuro Exam: Alert, Awake, Oriented, Speech Clear, Moving All Extremities, No Focal Deficits Psychiatric Psych Exam: Appropriate Responses PUD Prophylasis PUD Prophylaxis: Protonix Assessment/Plan Assessment/Plan Assessment and Plan Assessment and Plan Large right sided pleural effusion s/p right side chest tube placement chest tube fell out. s/p CT scan of chest and chest x- ray. shows moderate left pleural effusion and Large right Hydropneumothorax with complex loculated component as well as pulmonary consolidation and possible rounded Atelectasis / mass pulmonary managing the patient. S/P Right lung collapse resolved. End-stage renal disease was on peritoneal dialysis nephrology following, on hemodialysis now Anemia of chronic disease Resting dyspnea secondary to the pleural effusion..better after chest tube placement. Hypertension on home medicine will monitor blood pressure.+ Norvasc to 5 mg PO BID.+ Metoprolol. Oncologist and [employer] Hand and pulmonary input noted Non sustained venticular tachycardia cardiology input noted on metoprolol Hyperkalemia resolved. Discussed with patient. Check CBC with diff CMP in AM. Discharge plan when ok with nephrology and pulmonary. Discussed Condition with: Patient Felipe Alvarado MD Jan 29, 2017 12:06
--- NOTE | 2017-01-29 12:07 | HHI.NPPN ---
Subjective History of Present Illness 56-year-old female with past medical history of hypertension, chronic anemia, history of breast cancer, end-stage renal disease on peritoneal dialysis, history of gastroesophageal reflux disease, history of GI bleeding came to the hospital referred by Dr. Maher her oncologist. The patient has this cough going on for the last five or six months and she had a chest CT done as an outpatient which showed that she has some pleural effusion and she was referred by her oncologist, Dr. Maher, to go to the hospital for possible thoracentesis. Additional Remarks Sitting on a chair. Doing well. She plans to switch back to PD once discharged. Review of Systems General Constitutional: Fatigue Respiratory Lungs: SOB, Cough Cardiovascular Cardiac: BACON Objective Data Data Vital Signs Date Time Temp Pulse Resp B/P (MAP) Pulse Ox O2 Delivery O2 Flow Rate FiO2 01/29/17 11:18 75 01/29/17 08:00 97.2 79 16 151/74 (99) 98 01/29/17 04:25 100.1 90 16 154/77 (102) 94 01/29/17 00:30 98.5 79 16 106/52 (70) 95 01/28/17 20:30 100.7 81 16 119/69 (86) 100 01/28/17 20:00 86 01/28/17 16:00 99.2 84 20 139/72 (94) 92 01/28/17 13:09 98.4 83 135/7 (49) 94 -: 01/28/17 0833 01/28/17 0833 Tubes & Lines: Perma-Cath Physical Exam General Appearance: Well Developed, No Acute Distress, Comfortable Eyes Eye Exam: Sclera White, Extraocular Movement Intact Throat Throat Exam: Oral Mucosa [place] & Moist, Oral Pharynx Normal Neck Neck Exam: Neck Supple, Trachea Midline Pulmonary Resp Exam: Clear Bilaterally, Breath Sounds Equal, No Distress, Decreased Bases Cardiology CV Exam: Regular Gastrointestinal/Abdomen GI Exam: Soft, Non-Tender, Bowel Sounds Present Musculoskeletal MS Exam: Joints Intact, Normal Gait, Normal Tone, Good Strength Integumentary Skin Exam: Clear, Warm, Dry, Intact Extremeties Extremities Exam: No Edema, Pedal Pulses Palpable Neurologic Neuro Exam: Alert, Awake, Oriented, Speech Clear, Moving All Extremities, No Focal Deficits Psychiatric Psych Exam: Appropriate Responses PUD Prophylasis PUD Prophylaxis: Protonix Assessment/Plan Discussed Condition With: Patient Assessment Summary: Anemia of CKD, Hypertension, End Stage Renal Disease Problem List: (1) ESRD on peritoneal dialysis ICD Codes: N18.6 - End stage renal disease; Z99.2 - Dependence on renal dialysis Status: Acute Plan: Currently on HD, TTS schedule. Patient reports that she wants to switch back to Hemodialysis once discharged. Dr. Ernst to decide. (2) Pleural effusion, right ICD Codes: J90 - Pleural effusion, not elsewhere classified Status: Acute Plan: chest tube fell out pulmonary following monitor on room air (3) Sinus tachycardia ICD Codes: R00.0 - Tachycardia, unspecified Status: Acute Plan: corrected, monitor for recurrence (4) Hypertension ICD Codes: I10 - Essential (primary) hypertension Status: Acute Plan: continue ordered medications (5) Anemia of chronic kidney failure ICD Codes: N18.9 - Chronic kidney disease, unspecified; D63.1 - Anemia in chronic kidney disease Status: Acute Plan: Started epogen with HD she got 40K units on 01/12 Problem Qualifiers (1) Hypertension: Qualified Codes: I10 - Essential (primary) hypertension (2) Anemia of chronic kidney failure: Harvinder Lovell MD Jan 29, 2017 12:07
--- NOTE | 2017-01-29 16:22 | HHI.PR ---
Subjective Remarks 56 YOAA female with ESRD on PD, pl eff, ca breast No CP no Fever Had Pleurodesis. Chest tube fell off Doing well Objective Vital Signs Vital Signs Date Time Temp Pulse Resp B/P (MAP) Pulse Ox O2 Delivery O2 Flow Rate FiO2 01/29/17 12:00 97.7 81 16 125/69 (87) 99 01/29/17 11:18 75 01/29/17 08:00 97.2 79 16 151/74 (99) 98 01/29/17 04:25 100.1 90 16 154/77 (102) 94 01/29/17 00:30 98.5 79 16 106/52 (70) 95 01/28/17 20:30 100.7 81 16 119/69 (86) 100 01/28/17 20:00 86 I/O 01/28/17 01/28/17 01/28/17 01/29/17 01/29/17 01/29/17 07:00 15:00 23:00 07:00 15:00 23:00 Intake Total 240 ml 600 ml 240 ml 240 ml Output Total 2000 ml Balance 240 ml -1400 ml 240 ml 240 ml Intake Oral 240 ml 600 ml 240 ml 240 ml Hemodialysis 2000 ml # Voids 0 0 0 0 # Bowel Movements 0 1 0 0 Result Diagram: 01/28/1783201/28/17832 Objective Remarks GENERAL: MBMN AA female,NAD SKIN: Warm and dry. HEAD: Normocephalic. EYES: No scleral icterus. No injection or drainage. NECK: Supple, trachea midline. No JVD or lymphadenopathy. CARDIOVASCULAR: Regular rate and rhythm without murmurs, gallops, or rubs. RESPIRATORY: Breath sounds equal bilaterally. No accessory muscle use. Right chest tube draining GASTROINTESTINAL: Abdomen soft, non-tender, nondistended. PD Cathetor MUSCULOSKELETAL: No cyanosis, or edema. BACK: Nontender without obvious deformity. No CVA tenderness. A/P Assessment and Plan Right pleural effusion S/P Pleurodesis with Doxycycline ESRD on HD Atelactesis HTN GERD H/O Ca breast PLAN: Pleural fluid cytology Negative Stable on RA DW pt and Family. Robitussin DM cough syp Stable from pulm standpoint. DC plans underway. Roel Calle MD Jan 29, 2017 16:22
[2017-01-30 00:57] VITALS: BP 116/68; PULSE 94; RESP 16; TEMP 100.2; O2SAT 97
[2017-01-30 04:48] VITALS: BP 128/66; PULSE 99; RESP 16; TEMP 100.4; O2SAT 93
[2017-01-30] MEDS: guaiFENesin/DEXTROMETHORPHAN 200 MG/20 MG/10 ML CUP PO SCH ×3 (05:52→18:20)
[2017-01-30 07:14] LABS: AUTOMATED NEUTROPHIL # 10.3 TH/MM3 (1.8-7.7); BASOPHIL # 0.1 TH/MM3 (0-0.2); BASOPHIL % 0.8 % (0.0-2.0); EOSINOPHIL # 0.2 TH/MM3 (0-0.4); EOSINOPHIL % 1.7 % (0.0-4.0); LYMPH % 7.3 % (9.0-44.0); LYMPHOCYTE # 0.9 TH/MM3 (1.0-4.8); MEAN CELL VOLUME 75.1 FL (80.0-100.0); MEAN CORPUSCULAR HGB CONC 30.5 % (32.0-36.0); MONO % 7.8 % (0.0-8.0); NEUT % 82.4 % (16.0-70.0); PLATELET COUNT 359 TH/MM3 (150-450); RED BLOOD COUNT 3.46 MIL/MM3 (4.00-5.30); RED CELL DISTRIBUTION WIDTH 22.4 % (11.6-17.2); WHITE BLOOD COUNT 12.5 TH/MM3 (4.0-11.0)
[2017-01-30 07:24] LABS: HEMO FLAGS AUTO DIFF
[2017-01-30 07:42] LABS: ANION GAP 9 MEQ/L (5-15); AST (GOT) 14 U/L (15-37); BLOOD UREA NITROGEN 48 MG/DL (7-18); CHLORIDE 91 MEQ/L (98-107); GLOMERULAR FILTRATION RATE 6 ML/MIN (>89); POTASSIUM 4.7 MEQ/L (3.5-5.1); SODIUM (NA) 131 MEQ/L (136-145)
[2017-01-30 07:43] LABS: ALT (GPT) 17 U/L (10-53)
[2017-01-30 07:46] LABS: ALKALINE PHOSPHATASE 111 U/L (45-117); TOTAL BILIRUBIN ADULT 0.4 MG/DL (0.2-1.0)
[2017-01-30] MEDS: METOCLOPRAMIDE HCL 10 MG TAB PO SCH ×3 (08:00→15:43)
[2017-01-30 08:16] LABS: OVALOCYTES 1+ (NORMAL); TARGET CELLS 1+ (NORMAL)
[2017-01-30] MEDS: PANTOPRAZOLE SOD 20 MG DELAYED RELEASE TAB PO SCH (08:16)
[2017-01-30] MEDS: DOCUSATE SODIUM 50 MG/SENNA 8.6 MG TAB PO SCH (08:16)
[2017-01-30 08:17] LABS: ACANTHOCYTES 1+ (NORMAL); SCAN/DIFF AUTO DIFF CONFIRMED
[2017-01-30 08:18] LABS: PLATELET ESTIMATE SMEAR NORMAL (NORMAL); PLATELET MORPHOLOGY ENLARGED (NORMAL)
[2017-01-30] MEDS: SODIUM CHLORIDE 0.9% FLUSH 10 ML FLUSH IV FLUSH SCH (09:00)
[2017-01-30] MEDS: LISINOPRIL 5 MG TAB PO SCH (09:12)
[2017-01-30] MEDS: SEVELAMER CARBONATE 800 MG TAB PO SCH ×3 (09:12→17:00)
[2017-01-30] MEDS: METOPROLOL TARTRATE 50 MG TAB PO SCH ×3 (09:12→18:00)
[2017-01-30] MEDS: VITAMIN B CMPLX/VITC/FOLIC AC CAP PO SCH (09:12)
--- NOTE | 2017-01-30 09:59 | HHI.PR ---
Subjective History of Present Illness Patient have high creatinine nephrology following. on hemodialysis. better now , discharge plan when ok with nephrology and pulmonary. d/w NILAY Glass. Review of Systems Constitutional Constitutional: Fatigue, Weakness Vitals/Results Vital Signs Vital Signs Date Time Temp Pulse Resp B/P (MAP) Pulse Ox O2 Delivery O2 Flow Rate FiO2 01/30/17 04:48 100.4 99 16 128/66 (86) 93 01/30/17 00:57 100.2 94 16 116/68 (84) 97 01/29/17 20:30 100.4 90 16 114/71 (85) 98 01/29/17 16:00 100.2 97 18 147/71 (96) 98 01/29/17 12:00 97.7 81 16 125/69 (87) 99 01/29/17 11:18 75 CBC/BMP: 01/30/17 0626 01/30/17 0626 Lab Results Laboratory Tests Test 01/30/17 06:26 White Blood Count 12.5 TH/MM3 Red Blood Count 3.46 MIL/MM3 Hemoglobin 8.0 GM/DL Hematocrit 26.0 % Mean Corpuscular Volume 75.1 FL Mean Corpuscular Hemoglobin 23.0 PG Mean Corpuscular Hemoglobin Concent 30.5 % Red Cell Distribution Width 22.4 % Platelet Count 359 TH/MM3 Mean Platelet Volume 10.7 FL Neutrophils (%) (Auto) 82.4 % Lymphocytes (%) (Auto) 7.3 % Monocytes (%) (Auto) 7.8 % Eosinophils (%) (Auto) 1.7 % Basophils (%) (Auto) 0.8 % Neutrophils # (Auto) 10.3 TH/MM3 Lymphocytes # (Auto) 0.9 TH/MM3 Monocytes # (Auto) 1.0 TH/MM3 Eosinophils # (Auto) 0.2 TH/MM3 Basophils # (Auto) 0.1 TH/MM3 CBC Comment AUTO DIFF Differential Comment AUTO DIFF CONFIRMED Platelet Estimate NORMAL Platelet Morphology Comment ENLARGED Target Cells 1+ Ovalocytes 1+ Acanthocytes 1+ Blood Urea Nitrogen 48 MG/DL Creatinine 7.92 MG/DL Random Glucose 90 MG/DL Total Protein 6.5 GM/DL Albumin 2.0 GM/DL Calcium Level 8.7 MG/DL Alkaline Phosphatase 111 U/L Aspartate Amino Transf (AST/SGOT) 14 U/L Alanine Aminotransferase (ALT/SGPT) 17 U/L Total Bilirubin 0.4 MG/DL Sodium Level 131 MEQ/L Potassium Level 4.7 MEQ/L Chloride Level 91 MEQ/L Carbon Dioxide Level 31.0 MEQ/L Anion Gap 9 MEQ/L Estimat Glomerular Filtration Rate 6 ML/MIN Physical Exam General General Appearance: Well Developed, No Acute Distress, Comfortable Eyes Eye Exam: Sclera White, Extraocular Movement Intact Throat Throat Exam: Oral Mucosa [place] & Moist, Oral Pharynx Normal Neck Neck Exam: Neck Supple, Trachea Midline Pulmonary Resp Exam: Clear Bilaterally, Breath Sounds Equal, No Distress, Decreased Bases Cardiology CV Exam: Regular Gastrointestinal/Abdomen GI Exam: Soft, Non-Tender, Bowel Sounds Present Musculoskeletal MS Exam: Joints Intact, Normal Gait, Normal Tone, Good Strength Integumentary Skin Exam: Clear, Warm, Dry, Intact Extremeties Extremities Exam: No Edema, Pedal Pulses Palpable Neurologic Neuro Exam: Alert, Awake, Oriented, Speech Clear, Moving All Extremities, No Focal Deficits Psychiatric Psych Exam: Appropriate Responses PUD Prophylasis PUD Prophylaxis: Protonix Assessment/Plan Assessment/Plan Assessment and Plan Assessment and Plan Large right sided pleural effusion s/p right side chest tube placement chest tube fell out. s/p CT scan of chest and chest x- ray. shows moderate left pleural effusion and Large right Hydropneumothorax with complex loculated component as well as pulmonary consolidation and possible rounded Atelectasis / mass pulmonary managing the patient. Repeat chest x- ray noted. S/P Right lung collapse resolved. End-stage renal disease was on peritoneal dialysis nephrology following, on hemodialysis now Anemia of chronic disease Resting dyspnea secondary to the pleural effusion..better after chest tube placement. Hypertension on home medicine will monitor blood pressure.+ Norvasc to 5 mg PO BID.+ Metoprolol. 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 Discussed with patient. Check CBC with diff CMP in AM. Discharge plan when ok with nephrology and pulmonary. Discussed Condition with: Patient Felipe Alvarado MD Jan 30, 2017 09:59
[2017-01-30 10:00] VITALS: BP 152/74; PULSE 90; RESP 17; TEMP 99; O2SAT 95
[2017-01-30] MEDS ORDERED: HYDR-3583 PO (10:57)
[2017-01-30 12:00] VITALS: BP 147/73; PULSE 76; RESP 18; TEMP 97.5; O2SAT 98
[2017-01-30 16:00] VITALS: BP 150/78; PULSE 73; RESP 17; TEMP 98.6; O2SAT 97
[2017-01-30] MEDS: RESP: ALBUTEROL 2.5 MG/IPRATROPIUM 0.5 MG NEB (PRN) NEB (16:13)
[2017-01-30] MEDS: CALCITRIOL 0.25 MCG CAP PO SCH (17:00)
--- NOTE | 2017-01-30 17:15 | HHI.NPPN ---
Subjective History of Present Illness 56-year-old female with past medical history of hypertension, chronic anemia, history of breast cancer, end-stage renal disease on peritoneal dialysis, history of gastroesophageal reflux disease, history of GI bleeding came to the hospital referred by Dr. Maher her oncologist. The patient has this cough going on for the last five or six months and she had a chest CT done as an outpatient which showed that she has some pleural effusion and she was referred by her oncologist, Dr. Maher, to go to the hospital for possible thoracentesis. Additional Remarks Patient is alert, no SOB, feeling better, not in distress. Review of Systems General Constitutional: Fatigue Respiratory Lungs: SOB, Cough Cardiovascular Cardiac: BACON Objective Data Data Vital Signs Date Time Temp Pulse Resp B/P (MAP) Pulse Ox O2 Delivery O2 Flow Rate FiO2 01/30/17 12:00 97.5 76 18 147/73 (97) 98 01/30/17 10:00 99.0 90 17 152/74 (100) 95 01/30/17 04:48 100.4 99 16 128/66 (86) 93 01/30/17 00:57 100.2 94 16 116/68 (84) 97 01/29/17 20:30 100.4 90 16 114/71 (85) 98 -: 01/30/17 0626 01/30/17 0626 Tubes & Lines: Perma-Cath Physical Exam General Appearance: Well Developed, No Acute Distress, Comfortable Eyes Eye Exam: Sclera White, Extraocular Movement Intact Throat Throat Exam: Oral Mucosa [place] & Moist, Oral Pharynx Normal Neck Neck Exam: Neck Supple, Trachea Midline Pulmonary Resp Exam: Clear Bilaterally, Breath Sounds Equal, No Distress, Decreased Bases Cardiology CV Exam: Regular Gastrointestinal/Abdomen GI Exam: Soft, Non-Tender, Bowel Sounds Present Musculoskeletal MS Exam: Joints Intact, Normal Gait, Normal Tone, Good Strength Integumentary Skin Exam: Clear, Warm, Dry, Intact Extremeties Extremities Exam: No Edema, Pedal Pulses Palpable Neurologic Neuro Exam: Alert, Awake, Oriented, Speech Clear, Moving All Extremities, No Focal Deficits Psychiatric Psych Exam: Appropriate Responses PUD Prophylasis PUD Prophylaxis: Protonix Assessment/Plan Discussed Condition With: Patient Assessment Summary: Anemia of CKD, Hypertension, End Stage Renal Disease Problem List: (1) ESRD on peritoneal dialysis ICD Codes: N18.6 - End stage renal disease; Z99.2 - Dependence on renal dialysis Status: Acute (2) Pleural effusion, right ICD Codes: J90 - Pleural effusion, not elsewhere classified Status: Acute Plan: chest tube fell out pulmonary following monitor on room air (3) Sinus tachycardia ICD Codes: R00.0 - Tachycardia, unspecified Status: Acute Plan: corrected, monitor for recurrence (4) Hypertension ICD Codes: I10 - Essential (primary) hypertension Status: Acute Plan: continue ordered medications (5) Anemia of chronic kidney failure ICD Codes: N18.9 - Chronic kidney disease, unspecified; D63.1 - Anemia in chronic kidney disease Status: Acute Plan: Started epogen with HD she got 40K units on 01/12 Plan patient has been on HD here. Post Pleurodesis. BP is stable. Na. improved. Want to go back to PD. I called [facility] and changed her prescription. Increase fill volume and total exchanges to 6. Follow the Creatinine and KT/V. Can be discharged today and continue PD at home. Problem Qualifiers (1) Hypertension: Qualified Codes: I10 - Essential (primary) hypertension (2) Anemia of chronic kidney failure: Brina Ernst MD Jan 30, 2017 17:15
[2017-01-30] MEDS ORDERED: METO-309 PO (18:58)
[2017-01-30] MEDS ORDERED: IPRASOL NEB (18:59)
--- NOTE | 2017-01-30 19:46 | HHI.PR ---
Subjective Remarks 56 YOAA female with ESRD on PD, pl eff, ca breast No CP no Fever Had Pleurodesis. Doing well Objective Vital Signs Vital Signs Date Time Temp Pulse Resp B/P (MAP) Pulse Ox O2 Delivery O2 Flow Rate FiO2 01/30/17 16:00 98.6 73 17 150/78 (102) 97 01/30/17 12:00 97.5 76 18 147/73 (97) 98 01/30/17 10:00 99.0 90 17 152/74 (100) 95 01/30/17 04:48 100.4 99 16 128/66 (86) 93 01/30/17 00:57 100.2 94 16 116/68 (84) 97 01/29/17 20:30 100.4 90 16 114/71 (85) 98 I/O 01/29/17 01/29/17 01/29/17 01/30/17 01/30/17 01/30/17 07:00 15:00 23:00 07:00 15:00 23:00 Intake Total 240 ml 600 ml 480 ml 240 ml 720 ml Balance 240 ml 600 ml 480 ml 240 ml 720 ml Intake Oral 240 ml 600 ml 480 ml 240 ml 720 ml # Voids 0 0 0 # Bowel Movements 0 1 0 1 Result Diagram: 01/30/1762501/30/17625 Objective Remarks GENERAL: MBMN AA female,NAD SKIN: Warm and dry. HEAD: Normocephalic. EYES: No scleral icterus. No injection or drainage. NECK: Supple, trachea midline. No JVD or lymphadenopathy. CARDIOVASCULAR: Regular rate and rhythm without murmurs, gallops, or rubs. RESPIRATORY: Breath sounds equal bilaterally. No accessory muscle use. Right chest tube draining GASTROINTESTINAL: Abdomen soft, non-tender, nondistended. PD Cathetor MUSCULOSKELETAL: No cyanosis, or edema. BACK: Nontender without obvious deformity. No CVA tenderness. A/P Assessment and Plan Right pleural effusion S/P Pleurodesis with Doxycycline ESRD on HD Atelactesis HTN GERD H/O Ca breast PLAN: Pleural fluid cytology Negative Stable on RA Robitussin DM cough syp Stable from pulm standpoint. DC plans for home Will FU in office Roel Calle MD Jan 30, 2017 19:46
--- NOTE | 2017-02-03 09:51 | MD ---
cc: FELIPE ALVARADO MD ADMISSION DATE: 12/30/2016 DISCHARGE DATE: 01/30/2017 Okay to discharge the patient home. Condition at the time of discharge: Satisfactory. Activity: As tolerated. Diet: Cardiac diet. ALLERGIES No known drug allergies. DISCHARGE MEDICATIONS 1. Lortab 10/325 mg p.o. q.6h. p.r.n. pain. 2. Amlodipine 5 mg p.o. daily. 3. Calcitriol 0.5 mcg p.o. three times a week. 4. Lisinopril 5 mg twice a day. 5. Renvela 1600 mg p.o. t.i.d. 6. Vitamin-B complex, one p.o. daily. The patient was advised to follow-up with PCP, nephrology and pulmonary in one week. ADMITTING DIAGNOSIS 1. Large right-sided pleural effusion, status post right-sided chest tube placement. The patient's right-sided chest tube was removed. The patient had a hydropneumothorax. She had a chest tube for a long time and was unable to be discharged because of that. Eventually the chest able to fell out and after that did not require any chest tube. The patient had a right lung collapse which was better after that. The patient had pleural fluid analysis negative for malignancy. 2. End-stage renal disease. The patient was on peritoneal dialysis and eventually shifted to hemodialysis. The patient had a fistula placement already in the past. 3. History of anemia secondary to chronic disease including renal failure. 4. Dyspnea secondary to pleural effusion, which is improved. 5. History of hypertension. 6. Nonsustained ventricular tachycardia. During the hospital stay the patient was started on metoprolol and improved. 7. Hypokalemia during hospital stay which resolved. HOSPITAL COURSE This is a 56-year-old -[place] female admitted with the above-mentioned complaints and problems. She was seen by Dr. Calle of pulmonology and seen by Dr. Ernst of nephrology. The patient remained stable. The patient's hospital course was long and protracted because of the chest tube placement and a lot of drainage through the chest tube. The patient also saw Dr. Rivas and had an echocardiogram done. The patient remained stable. No acute event happened other than nonsustained ventricular tachycardia which was asymptomatic. The patient had leukocytosis and also had anemia with a hemoglobin of 8.9, 8.0 baseline, platelet count 359. The patient had hyponatremia which improved to a sodium of 131. The creatinine was 7.92, BUN 48. The patient's PT was 11.4, INR 0.0, APTT 29.2. The patient had a peripheral analysis done with pH of 8.5 with a total protein of 2.1, LDH 153. Glucose was 64. Hepatitis A, B and C were negative. The patient had a chest x-ray done that showed a right thoracostomy tube in good position within the inferior hemithorax, questionable loculated effusion involving the right lateral hemithorax consolidation involving the entire lungs and cardiomegaly. The patient had a pleurodesis during the hospital stay. The patient's final chest x-ray shows a small caliber right chest tube and loculated air and fluid in the right hemithorax and dense right basilar consolidation persisting, slight increase in the left effusion and left basilar airspace disease since January 15. Please see the further details in the medical record. Felipe Alvarado MD EA/SANDEE /6:52 PM /9:33 AM
== END 2017-01-30 20:53 | disposition home or self-care (01) | DRG 186 ==
LOC: NEPD 14:30 → NEDA 15:25 → N06A 18:54 → OBSVTOIN 12-30 10:35
PROVIDERS: ADMIT Family Medicine; ATTEND Family Medicine
PROC: 0W9930Z Drainage of Right Pleural Cavity with Drainage Device, Percutaneous Approach (ICD-10-PCS; principal; 2016-12-28)
PROC: 3E1M39Z Irrigation of Peritoneal Cavity using Dialysate, Percutaneous Approach (ICD-10-PCS; 2016-12-28)
PROC: 5A1D60Z (ICD-10-PCS; 2017-01-02)
PROC: 3E0L3GC Introduction of Other Therapeutic Substance into Pleural Cavity, Percutaneous Approach (ICD-10-PCS; 2017-01-24)
PROC: 0B2QX0Z Change Drainage Device in Pleura, External Approach (ICD-10-PCS; 2017-01-24)
DX: J90 Pleural effusion, not elsewhere classified (principal); N18.6 End stage renal disease; I42.7 Cardiomyopathy due to drug and external agent; I12.0 Hypertensive chronic kidney disease with stage 5 chronic kidney disease or end stage renal disease; I47.1 Supraventricular tachycardia; J98.11 Atelectasis; J94.8 Other specified pleural conditions; E87.5 Hyperkalemia; E78.5 Hyperlipidemia, unspecified; K21.9 Gastro-esophageal reflux disease without esophagitis; R09.02 Hypoxemia; D63.1 Anemia in chronic kidney disease; Z85.3 Personal history of malignant neoplasm of breast; Z92.21 Personal history of antineoplastic chemotherapy; Z92.3 Personal history of irradiation; Z99.2 Dependence on renal dialysis
CPT/HCPCS: 32557; 32560; 36591; 71010; 71020; 71250; 76000; 80048; 80053; 80074; 82565; 82570; 82728; 82945; 83540; 83550; 83615; 83735; 83986; 84100; 84157; 84439; 84443; 85007; 85025; 85027; 85610; 85730; 88112; 88305; 90935; 90945; 93005; 93306; 94640; 94664; 96374; 99152; 99153; 99285; C1729; C1769; G0257; G0378; J2250; J2405; J3010; J7030; Q4081; Q9967

== ENCOUNTER 2017-07-31 13:30 | Inpatient (IN) | payer MEDICARE, OTHER ==
[~2017-07-31] VITALS: Ht 157.5 cm; Wt 50.4 kg
[2017-07-31] VITALS (7 sets, daily range): BP systolic 131–175; BP diastolic 79–94; PULSE 108–128; RESP 25–51; TEMP 98.3–98.7; O2SAT 98–100
[~2017-07-31 13:30] MED LIST changes: +HYDR-3583 PO; +IPRASOL NEB; +METO-309 PO
[2017-07-31] MEDS ORDERED: SODIUM CHLORIDE 0.9% FLUSH 10 ML FLUSH IVF PRN (14:00)
--- NOTE | 2017-07-31 14:03 | PD ---
HPI Chief Complaint: Respiratory Distress Time Seen by Provider: 13:55 Travel History International Travel<30 days: No Contact w/Intl Traveler<30days: No Traveled to known affect area: No History of Present Illness HPI 57-year-old female patient with history of end-stage renal disease on peritoneal dialysis, hypertension, last had her dialysis last night according to her mother, presents to the ER today brought in by EMS for complaints of shortness of breath that have been going on for several days, worse with exertion. She is in some respiratory distress and barely able to talk. Modifying Factors: None Associated Signs & Symptoms: Shortness of breath Risk Factors: None PFSH Past Medical History Hx Anticoagulant Therapy: Yes Cancer: Yes (right breast cancer) Cardiovascular Problems: Yes Diabetes: No Diminished Hearing: No Endocrine: No Gastrointestinal Disorders: Yes (GERD hx of but ok now) Genitourinary: No Hepatitis: No Hiatal Hernia: No Hypertension: Yes Immune Disorder: No Medical other: Yes (ANEMIA/ok now) Musculoskeletal: No Neurologic: No Psychiatric: No Reproductive: No Respiratory: No Renal Failure: Yes (NIGHTLY PERITONEAL DIALYSIS.) Thyroid Disease: No Menopausal: Yes Past Surgical History Abdominal Surgery: Yes (TENCKHOFF CATH) AICD: No Body Medical Devices: TENCKHOFF CATH fistula left arm infusaport Joint Replacement: No Pacemaker: No Thoracic Surgery: Yes (infusaport RIGHT CHEST) Other Surgery: Yes (I&D INFECTED CYST) Social History Alcohol Use: No Tobacco Use: No Substance Use: No Allergies-Medications (Allergen,Severity, Reaction): Coded Allergies: No Known Allergies (Verified Adverse Reaction, Unknown, 07/31/17) Reported Meds & Prescriptions Reported Meds & Active Scripts Active Duoneb (Ipratropium-Albuterol Neb) 0.5-2.5 Mg/3 Ml Neb 1 Ampule NEB Q8HR NEB PRN Hydrocodone-Acetaminophen 10-325 mg Tab 1 Tab PO Q6H PRN Reported Amlodipine (Amlodipine Besylate) 5 Mg Tab 5 Mg PO BID Potassium Chloride ER (Potassium Chloride) 20 Meq Tab 20 Meq PO DAILY Metoprolol Tartrate 25 Mg Tab 25 Mg PO BID Bystolic (Nebivolol) 10 Mg Tab 10 Mg PO DAILY Carvedilol 25 Mg Tab 25 Mg PO BID Rocaltrol (Calcitriol) 0.5 Mcg Cap 0.5 Mcg PO 3 TIMES A WEEK @1700 Renvela (Sevelamer Carbonate) 800 Mg Tab 1,600 Mg PO TIDAC Nephro-Brenden Rx (Vitamin B Cmplx/Vit C/Folic AC) 1 Tab 1 Tab PO DAILY Lisinopril 5 Mg Tab 5 Mg PO BID Review of Systems ROS Limitations: Altered Mental Status Physical Exam Narrative GENERAL: Thin well-developed -Japanese male age female patient currently and mild distress. Awake and oriented 3. SKIN: Focused skin assessment warm/dry. HEAD: Atraumatic. Normocephalic. EYES: Pupils equal and round. No scleral icterus. No injection or drainage. ENT: No nasal bleeding or discharge. Mucous membranes pink and moist. NECK: Trachea midline. No JVD. Supple. CARDIOVASCULAR: Regular rate and rhythm. No murmur appreciated. RESPIRATORY: No accessory muscle use. Clear to auscultation. Breath sounds equal bilaterally. GASTROINTESTINAL: Abdomen soft, non-tender, nondistended. Hepatic and splenic margins not palpable. MUSCULOSKELETAL: No obvious deformities. No clubbing. No cyanosis. No edema. NEUROLOGICAL: Awake and alert. No obvious cranial nerve deficits. Motor grossly within normal limits. Normal speech. PSYCHIATRIC: Appropriate mood and affect; insight and judgment normal. Data Data Last Documented VS Vital Signs Date Time Temp Pulse Resp B/P (MAP) Pulse Ox O2 Delivery O2 Flow Rate FiO2 07/31/17 15:13 108 36 173/88 (116) Simple Mask 8.00 97 07/31/17 14:00 98 07/31/17 13:50 98.7 Orders Orders Complete Blood Count With Diff (07/31/17 13:55) Comprehensive Metabolic Panel (07/31/17 13:55) B-Type Natriuretic Peptide (07/31/17 13:55) Arterial Blood Gas (Abg) (07/31/17 13:55) Blood Culture (07/31/17 13:55) Iv Access Insert/Monitor (07/31/17 13:55) Electrocardiogram (07/31/17 13:55) Ecg Monitoring (07/31/17 13:55) Oximetry (07/31/17 13:55) Oxygen Administration (07/31/17 13:55) Chest, Single Ap (07/31/17 13:55) Sodium Chloride 0.9% Flush (Ns Flush) (07/31/17 14:00) Lactic Acid Sepsis Protocol (07/31/17 14:03) Cefepime Inj (Maxipime Inj) (07/31/17 15:10) Azithromycin (Zithromax) (07/31/17 15:10) Act Partial Throm Time (Ptt) (07/31/17 15:10) Prothrombin Time / Inr (Pt) (07/31/17 15:10) Potassium, Serum (K) (07/31/17 18:27) Calcium Gluconate Inj (Calcium Gluconate (07/31/17 15:30) Insulin Human Regular Inj (Novolin R Inj (07/31/17 15:45) Dextrose 50% In Haylie (Vial) Inj (D50w (Vi (07/31/17 15:30) Sodium Bicarbonate 8.4% Inj (Sodium Bica (07/31/17 15:30) Sodium Polysty Sulfate Liq (Kayexalate L (07/31/17 15:30) Ct Brain W/O Iv Contrast(Rout) (07/31/17 15:43) Ct Thorax/ Chest Wo Iv Contras (07/31/17 15:43) Ct Abd/Pel W/O Iv Contrast (07/31/17 15:43) Admit Order (Ed Use Only) (07/31/17 15:43) Admit To Inpatient (07/31/17 ) Code Status (07/31/17 15:45) Vital Signs (Adult) ROB.Q1H (07/31/17 15:45) Activity Bed Rest (07/31/17 15:45) Elevate Head Of Bed (07/31/17 15:45) Neuro Checks . ORDERED (07/31/17 15:45) Famotidine (Pepcid) (07/31/17 21:00) Albuterol-Ipratropium Neb (Duoneb Neb) (07/31/17 16:00) Albuterol-Ipratropium Neb (Duoneb Neb) (07/31/17 15:45) Complete Blood Count With Diff (08/01/17 04:00) Comprehensive Metabolic Panel (08/01/17 04:00) Lactic Acid (08/01/17 04:00) Php Web Developer / Telemetry ROB.Q8H (07/31/17 15:45) Scd Bilateral/Knee High ROB.BID (07/31/17 15:45) ^ Initiate Protocol (07/31/17 15:45) Instruction (07/31/17 15:45) Misc Nursing Information (07/31/17 15:45) Chlorhexidine 2% Cloth (Chlorhexidine 2% (08/01/17 04:00) Chlorhexidine 2% Cloth (Chlorhexidine 2% (07/31/17 15:45) Mrsa Pcr Surveillance (07/31/17 15:45) Inpatient Certification (07/31/17 ) Influenzae A/B Antigen (07/31/17 15:45) Legionella Urinary Antigen (07/31/17 15:45) Pneumococcal Urinary Antigen (07/31/17 15:45) Vancomycin Consult Pharmacy (Vancomycin (07/31/17 15:45) Piperacil-Tazo 4.5 Gm Premix (Zosyn 4.5 (07/31/17 15:45) Azithromycin Inj (Zithromax Inj) (07/31/17 15:45) Blood Glucose Goal (Criteria) (07/31/17 15:45) Hypoglycemia 70 Mg/Dl Or < (07/31/17 15:45) Notify Dr: Other (07/31/17 15:45) Dextrose 50% In Haylie (Vial) Inj (D50w (Vi (07/31/17 15:45) Glucagon Inj (Glucagon Inj) (07/31/17 15:45) Insulin Human Reg Supp Scale (Novolin R (07/31/17 15:45) Basic Metabolic Panel (Bmp) (07/31/17 21:00) Lactic Acid (07/31/17 21:00) Sputum Culture And Gram Stain (07/31/17 15:51) Labs Laboratory Tests Test 07/31/17 14:00 07/31/17 15:15 07/31/17 15:41 White Blood Count 16.2 TH/MM3 Red Blood Count 5.25 MIL/MM3 Hemoglobin 11.6 GM/DL Hematocrit 37.8 % Mean Corpuscular Volume 72.1 FL Mean Corpuscular Hemoglobin 22.1 PG Mean Corpuscular Hemoglobin Concent 30.7 % Red Cell Distribution Width 31.3 % Platelet Count 282 TH/MM3 Mean Platelet Volume 8.9 FL Neutrophils (%) (Auto) 90.1 % Lymphocytes (%) (Auto) 4.8 % Monocytes (%) (Auto) 4.8 % Eosinophils (%) (Auto) 0.0 % Basophils (%) (Auto) 0.3 % Neutrophils # (Auto) 14.6 TH/MM3 Lymphocytes # (Auto) 0.8 TH/MM3 Monocytes # (Auto) 0.8 TH/MM3 Eosinophils # (Auto) 0.0 TH/MM3 Basophils # (Auto) 0.0 TH/MM3 CBC Comment AUTO DIFF Differential Comment AUTO DIFF CONFIRMED Platelet Estimate NORMAL Platelet Morphology Comment ENLARGED Target Cells 1+ Tear Drop Cells 1+ Ovalocytes 1+ Keratocytes 1+ Blood Urea Nitrogen 83 MG/DL Creatinine 16.12 MG/DL Random Glucose 97 MG/DL Total Protein 8.8 GM/DL Albumin 3.4 GM/DL Calcium Level 9.5 MG/DL Alkaline Phosphatase 119 U/L Aspartate Amino Transf (AST/SGOT) 45 U/L Alanine Aminotransferase (ALT/SGPT) 28 U/L Total Bilirubin 0.5 MG/DL Sodium Level 131 MEQ/L Potassium Level 7.2 MEQ/L Chloride Level 91 MEQ/L Carbon Dioxide Level 21.0 MEQ/L Anion Gap 19 MEQ/L Estimat Glomerular Filtration Rate 3 ML/MIN Lactic Acid Level 4.6 mmol/L Prothrombin Time 14.7 SEC Prothromb Time International Ratio 1.5 RATIO Activated Partial Thromboplast Time 26.7 SEC Blood Gas Puncture Site RT RADIAL Blood Gas Patient Temperature 98.6 Blood Gas HCO3 21 mmol/L Blood Gas Base Excess -3.8 mmol/L Blood Gas Oxygen Saturation 90 % Arterial Blood pH 7.33 Arterial Blood Partial Pressure CO2 41 mmHg Arterial Blood Partial Pressure O2 75 mmHG Arterial Blood Oxygen Content 13.5 Vol % Arterial Blood Carboxyhemoglobin 1.9 % Arterial Blood Methemoglobin 0.6 % Blood Gas Hemoglobin 10.6 G/DL Oxygen Delivery Device MASK Blood Gas Liter Flow 8 L/M MDM Medical Decision Making Medical Screen Exam Complete: Yes Emergency Medical Condition: Yes Medical Record Reviewed: Yes Interpretation(s) EKG shows A. fib with rapid ventricular response at a rate of 114 bpm. There is a left bundle julissa block pattern. Laboratory Tests Test 07/31/17 14:00 White Blood Count 16.2 TH/MM3 (4.0-11.0) Mean Corpuscular Volume 72.1 FL (80.0-100.0) Mean Corpuscular Hemoglobin 22.1 PG (27.0-34.0) Mean Corpuscular Hemoglobin Concent 30.7 % (32.0-36.0) Red Cell Distribution Width 31.3 % (11.6-17.2) Neutrophils (%) (Auto) 90.1 % (16.0-70.0) Lymphocytes (%) (Auto) 4.8 % (9.0-44.0) Neutrophils # (Auto) 14.6 TH/MM3 (1.8-7.7) Lymphocytes # (Auto) 0.8 TH/MM3 (1.0-4.8) Platelet Morphology Comment ENLARGED (NORMAL) Target Cells 1+ (NORMAL) Tear Drop Cells 1+ (NORMAL) Ovalocytes 1+ (NORMAL) Keratocytes 1+ (NORMAL) Blood Urea Nitrogen 83 MG/DL (7-18) Creatinine 16.12 MG/DL (0.50-1.00) Total Protein 8.8 GM/DL (6.4-8.2) Alkaline Phosphatase 119 U/L (45-117) Aspartate Amino Transf (AST/SGOT) 45 U/L (15-37) Sodium Level 131 MEQ/L (136-145) Potassium Level 7.2 MEQ/L (3.5-5.1) Chloride Level 91 MEQ/L (98-107) Anion Gap 19 MEQ/L (5-15) Estimat Glomerular Filtration Rate 3 ML/MIN (>89) Lactic Acid Level 4.6 mmol/L (0.4-2.0) Last 24 hours Impressions Chest X-Ray 07/31/17 4415 Signed Impressions: Service Date/Time: Monday, July 31, 2017 14:36 - CONCLUSION: 1. Stable volume loss and airspace consolidation throughout the right lung. 2. Mild interval enlargement of small loculated right lateral pleural effusion. 3. Stable trace left pleural effusion with developing left lung base airspace disease which may reflect atelectasis. Garrett Ace MD Differential Diagnosis Shortness of breath, disorientation: Hypoxia versus hypercapnia versus pneumonia versus CHF versus metabolic issues versus sepsis Narrative Course Chest x-ray shows significant right pleural effusion, questionable underlying consolidation, concerning for possible pneumonia. A review of the patient's past visits shows that she has been here for right pleural effusion in the past as well and had chest tube drainage. At this point, she has an acute on chronic kidney failure with fairly elevated creatinine and very elevated potassium. She will need dialysis. It is unclear whether the dialysis alone will help with her pleural effusion as well. She was given oxygen in the ER and appears to be having better mentation. She was given IV antibiotics as a precaution especially with disorientation and elevated lactate levels, there may be underlying pneumonia as a concern. Case has been discussed with Dr. Ernst who has recommended hyperkalemia treatment with Kayexalate. He states that he will try to arrange dialysis tonight. Case was discussed with Dr. Manning of intensive care for admission. Aggregate critical care time was 35 minutes. Time to perform other separately billable procedures was not included in the critical care time. My time did not include minutes spent treating any other patients simultaneously or on activities that did not directly contribute to the patient's treatment. The services I provided to this patient were to treat and/or prevent clinically significant deterioration that could result in: Worsening metabolic abnormalities, dysrhythmias, septic shock, respiratory arrest, I provided critical care services requiring my management, as noted below: Chart data review, documentation time, medication orders and management, vital sign assessments/reviewing monitor data, ordering and reviewing lab tests, ordering and interpreting/reviewing x-rays and diagnostic studies, care of the patient and discussion of the patient with the admitting physicians. Diagnosis Primary Impression: ESRD on peritoneal dialysis Additional Impression: Pleural effusion, right Admitting Information Admitting Physician Requests: Admit Opal Sierra MD Jul 31, 2017 14:03
[2017-07-31] MEDS ORDERED: CARV25TA PO (14:10)
[2017-07-31] MEDS ORDERED: AMLO5TAB2 PO (14:10)
[2017-07-31] MEDS ORDERED: POTA-163 PO (14:10)
[2017-07-31] MEDS ORDERED: METO25TA3 PO (14:10)
[2017-07-31] MEDS ORDERED: BYST10TA2 PO (14:10)
[2017-07-31 14:26] LABS: AUTOMATED NEUTROPHIL # 14.6 TH/MM3 (1.8-7.7); BASOPHIL % 0.3 % (0.0-2.0); HEMATOCRIT 37.8 % (35.0-46.0); HEMOGLOBIN 11.6 GM/DL (11.6-15.3); LYMPH % 4.8 % (9.0-44.0); LYMPHOCYTE # 0.8 TH/MM3 (1.0-4.8); MEAN CELL VOLUME 72.1 FL (80.0-100.0); MEAN CORPUSCULAR HEMOGLOBIN 22.1 PG (27.0-34.0); MEAN CORPUSCULAR HGB CONC 30.7 % (32.0-36.0); MEAN PLATELET VOLUME 8.9 FL (7.0-11.0); MONO % 4.8 % (0.0-8.0); MONOCYTE # 0.8 TH/MM3 (0-0.9); NEUT % 90.1 % (16.0-70.0); PLATELET COUNT 282 TH/MM3 (150-450); RED BLOOD COUNT 5.25 MIL/MM3 (4.00-5.30); RED CELL DISTRIBUTION WIDTH 31.3 % (11.6-17.2); WHITE BLOOD COUNT 16.2 TH/MM3 (4.0-11.0)
[2017-07-31 14:34] LABS: ALBUMIN 3.4 GM/DL (3.4-5.0); AST (GOT) 45 U/L (15-37); BLOOD UREA NITROGEN 83 MG/DL (7-18); CALCIUM 9.5 MG/DL (8.5-10.1); CHLORIDE 91 MEQ/L (98-107); GLOMERULAR FILTRATION RATE 3 ML/MIN (>89); GLUCOSE,RANDOM 97 MG/DL (74-106); SODIUM (NA) 131 MEQ/L (136-145)
[2017-07-31 14:45] LABS: CREATININE 16.12 MG/DL (0.50-1.00)
[2017-07-31 14:48] LABS: ALKALINE PHOSPHATASE 119 U/L (45-117); ALT (GPT) 28 U/L (10-53); TOTAL BILIRUBIN ADULT 0.5 MG/DL (0.2-1.0); TOTAL PROTEIN 8.8 GM/DL (6.4-8.2)
--- NOTE | 2017-07-31 14:54 | RADRPT ---
EXAM DATE/TIME: 07/31/2017 14:36 [facility] COMPARISON: CHEST SINGLE AP, January 25, 2017, 22:05. INDICATIONS : Shortness of breath. MEDICAL HISTORY : Hypertension. Renal disease, end stage. Carcinoma, breast. SURGICAL HISTORY : None. ENCOUNTER: Initial ACUITY: 1 day PAIN SCORE: Non-responsive. LOCATION: Bilateral chest FINDINGS: Persistent volume loss and airspace disease in the right lung with slightly enlarged loculated latera l right pleural effusion. Persistent trace left pleural effusion with interval development of airspac e disease at the left lung base. Cardiomediastinal contours are stable. Remainder of exam is unchange d. CONCLUSION: 1. Stable volume loss and airspace consolidation throughout the right lung. 2. Mild interval enlargement of small loculated right lateral pleural effusion. 3. Stable trace left pleural effusion with developing left lung base airspace disease which may refle ct atelectasis. Garrett Ace MD on July 31, 2017 at 14:49 Board Certified Radiologist. This report was verified electronically.
[2017-07-31 15:03] LABS: LACTIC ACID SEPSIS PROTOCOL 4.6 mmol/L (0.4-2.0)
[2017-07-31] MEDS ORDERED: AZITHROMYCIN 250 MG TAB PO STA (15:10)
[2017-07-31] MEDS ORDERED: CEFEPIME INJ 2,000 MG in SODIUM CHLORIDE 0.9% INJ 100 ML IV STA (15:10)
[2017-07-31 15:27] LABS: KERATOCYTES 1+ (NORMAL); OVALOCYTES 1+ (NORMAL); TARGET CELLS 1+ (NORMAL); TEARDROP RBCS 1+ (NORMAL)
[2017-07-31] MEDS ORDERED: SODIUM BICARBONATE 8.4% SOLN 50 MEQ/50 ML VIAL SLOW IVP ONE (15:30)
[2017-07-31] MEDS ORDERED: CALCIUM GLUCONATE 10% 1 GM/10 ML VIAL SLOW IVP ONE (15:30)
[2017-07-31] MEDS ORDERED: DEXTROSE 50% IN WATER 50 ML VIAL(D50) IV PUSH ONE (15:30)
[2017-07-31] MEDS ORDERED: SODIUM POLYSTYRENE SULFONATE SUSP 15 GM/60 ML CUP PO ONE (15:30)
[2017-07-31] MEDS ORDERED: INSULIN HUMAN REGULAR 1,000 UNITS/10 ML VIAL IV PUSH ONE (15:45)
[2017-07-31] MEDS ORDERED: GLUCAGON 1 MG/ML VIAL OTHER PRN (15:45)
[2017-07-31] MEDS ORDERED: PIPERACIL-TAZO 4.5 GM PREMIX 100 ML IV SCH (15:45)
[2017-07-31] MEDS ORDERED: CHLORHEXIDINE GLUCONATE 2 % 1 PACK (2 CLOTHS) TOP PRN (15:45)
[2017-07-31] MEDS ORDERED: Vancomycin Consult Pharmacy 1 EA OTHER SCH (15:45)
[2017-07-31] MEDS ORDERED: DEXTROSE 50% IN WATER 50 ML VIAL(D50) IV PUSH PRN (15:45)
[2017-07-31] MEDS ORDERED: MISCELLANEOUS NURSING INFORMATION XX SCH (15:45)
[2017-07-31] MEDS ORDERED: RESP: ALBUTEROL 2.5 MG/IPRATROPIUM 0.5 MG NEB (PRN) INH (15:45)
[2017-07-31 15:58] LABS: INTERNATIONAL NORMALIZED RATIO 1.5 RATIO; PROTHROMBIN TIME - PATIENT 14.7 SEC (9.8-11.6)
[2017-07-31] MEDS: RESP: ALBUTEROL 2.5 MG/IPRATROPIUM 0.5 MG NEB (SCH) INH ×2 (16:00→23:34)
[2017-07-31] MEDS ORDERED: SODIUM CHLOR 0.9% 1000 ML INJ 1,000 ML IV PRN (16:22)
[2017-07-31] MEDS ORDERED: SODIUM CHLOR 0.9% 1000 ML INJ 1,000 ML OTHER PRN ×2 (16:22)
[2017-07-31] MEDS ORDERED: NITROGLYCERIN 0.4 MG SL 25 TABS/BTL SL PRN (16:30)
[2017-07-31] MEDS ORDERED: EPOETIN ALFA 10,000 UNITS/ML VIAL IV PUSH PRN (16:30)
[2017-07-31] MEDS ORDERED: diphenhydrAMINE HCL 25 MG CAP PO PRN (16:30)
[2017-07-31] MEDS ORDERED: ONDANSETRON HCL 4 MG/2 ML VIAL IV PUSH PRN (16:30)
[2017-07-31] MEDS ORDERED: HEPARIN SODIUM - IV 10,000 UNITS/10 ML VIAL IV FLUSH PRN (16:30)
[2017-07-31] MEDS ORDERED: HEPARIN SODIUM - IV 10,000 UNITS/10 ML VIAL PRN (16:30)
[2017-07-31] MEDS ORDERED: GENTAMICIN SULFATE 20 MG/2 ML VIAL OTHER PRN (16:30)
[2017-07-31] MEDS ORDERED: GELATIN 12 MM/7 MM FOAM TOP PRN (16:30)
[2017-07-31] MEDS ORDERED: ALBUMIN 25% INJ 100 ML IV PRN (16:30)
[2017-07-31] MEDS ORDERED: MANNITOL 12.5 GM/50 ML VIAL IV PRN (16:30)
[2017-07-31] MEDS ORDERED: cloNIDine HCL 0.1 MG TAB PO PRN (16:30)
[2017-07-31] MEDS ORDERED: SODIUM CHLORIDE 0.9% FLUSH 10 ML FLUSH IV FLUSH PRN (16:30)
[2017-07-31] MEDS ORDERED: PILL SPLITTER OTHER PRN (16:45)
[2017-07-31] MEDS ORDERED: hydrALAZINE HCL 20 MG/ML VIAL IV PUSH PRN (17:00)
--- NOTE | 2017-07-31 17:54 | MH ---
cc: Estevan Bhakta MD DATE OF ADMISSION: 07/31/2017 HISTORY OF PRESENT ILLNESS: The patient is a 57-year-old female with past medical history of hypertension, end-stage renal disease, on peritoneal dialysis, anemia of chronic disease, GERD and breast cancer, who presented to [facility] ED by EMS with complaints of shortness of breath for several days, worse with exertion. On arrival to the ED, she was tachycardic and hypertensive with a systolic blood pressure in the 170s. Her laboratory data is significant for hyperkalemia with a potassium level of 7.2, creatinine 16.1 and lactic acidosis with a lactic acid level of 4.6. Also, she was found to have leukocytosis with a WBC of 16. The patient is afebrile. Chest x-ray in the ED showed stable airspace consolidation with some volume loss in the right lung, a small loculated right lateral pleural effusion, airspace disease in the left lung base. In the ED, she was treated for hyperkalemia with 10 units of IV insulin given along with calcium, D50, sodium bicarbonate, Kayexalate. Also, she received cefepime and azithromycin. Dr. Ernst was notified from nephrology service and the patient was taken emergently to the dialysis suite to undergo hemodialysis. According to ED records, patient had peritoneal dialysis last night. Most of the history was obtained from reviewing medical records as patient is a poor historian. She had an ABG performed on 8 L simple mask, which showed a pH of 7.33, CO2 of 41, PaO2 of 75, bicarbonate 21, and saturation of 90%. She was seen in the dialysis suite where she is receiving hemodialysis. Her current blood pressure is 124/94 with a pulse of 72 and saturation 100% on 8 L simple mask. PAST MEDICAL HISTORY: Significant for right-sided breast cancer, end-stage renal disease, anemia of chronic disease, GERD, hypertension. PAST SURGICAL HISTORY: Fistula in the left upper extremity. SOCIAL HISTORY: Nonsmoker, nondrinker. ALLERGIES: NO KNOWN DRUG ALLERGIES REPORTED. MEDICATIONS: Include amlodipine, Lopressor, Bystolic, Coreg, Nephro-Brenden, lisinopril. REVIEW OF SYSTEMS: As per HPI. Rest of review of systems limited as patient is a poor historian. PHYSICAL EXAMINATION: GENERAL: A 57-year-old female lying in bed in mild distress. VITAL SIGNS: Temperature 98.7, pulse of 72, blood pressure 124/94, saturation 100% on 8 L simple mask. HEENT: Atraumatic, normocephalic. Pupils equal, round, reactive to light and accommodation. Extraocular muscles intact. Conjunctivae pink. Nonicteric sclerae. Oral mucosa within normal. NECK: Supple. No JVD, adenopathy, thyromegaly. Trachea in the midline. CARDIOVASCULAR: Regular rate and rhythm. Normal S1, S2. No murmurs, rubs or gallops noted. PULMONARY: Bilateral equal air entry, diminished at the bases. ABDOMEN: Soft, nontender. No distention. Positive bowel sounds. EXTREMITIES: No cyanosis, clubbing. Trace edema. NEUROLOGIC: No focal sensory deficit. LABORATORY DATA: Sodium 131, potassium 7.2, chloride 91, CO2 of 21, BUN 83, creatinine 16.1, glucose 97. Lactic acid 4.6. AST 45, ALT 28, total bilirubin 0.5, albumin 3.4. WBC 16.2, hemoglobin 11.6, hematocrit 37, platelet count 282. INR 1.5. PT 14.7, PTT 26.7. RADIOGRAPHIC STUDIES: Chest x-ray showed some volume loss with airspace consolidation in the right lung with a small loculated right lateral pleural effusion, airspace disease in left lung base with trace left pleural effusion. IMPRESSION: 1. Respiratory insufficiency. 2. Hyperkalemia and hyponatremia. 3. End-stage renal disease. 4. Lactic acidemia. 5. Leukocytosis. 6. Bilateral airspace disease with a small pleural effusion. 7. Anemia of chronic disease. 8. Gastroesophageal reflux disease. 9. Hypertension. 10. History of breast CA, status post chemo and radiation therapy. RECOMMENDATIONS: 1. Monitor neuro status closely and avoid any sedatives. The patient is for CT scan of the brain without contrast. 2. Continue with oxygen and maintain sats above 92%. 3. Bronchodilators in the form of DuoNeb q. 4 plus q. 2 p.r.n. for shortness of breath. 4. Will proceed with CT scan of the chest without contrast for further evaluation of the pulmonary parenchyma. 5. Monitor heart rate and blood pressure closely and maintain MAP greater than 65 mmHg. Resume antihypertensive medications, which include Lopressor 25 mg b.i.d., Norvasc 5 mg b.i.d. 6. Repeat lactic acid level post-dialysis. 7. Monitor renal function, I's and O's and avoid nephrotoxins. The patient is currently receiving hemodialysis. We will repeat a BMP and lactic acid level 1 hour post-dialysis. Dr. Ernst from nephrology service is following. 8. Keep n.p.o. for now and place on Pepcid for GI prophylaxis. Monitor LFTs. 9. Continue with broad spectrum antibiotics. I will place on Zosyn, vancomycin, azithromycin. Adjust antibiotic doses per renal function. Monitor for signs of infection, which include fever and WBC. Follow up on blood cultures. In addition, we will check a sputum culture with Gram stain. We will send a nasal washing to rule out influenza and check Strep pneumonia and legionella urinary antigen. 10. The patient is for a CT scan of the abdomen and pelvis without contrast along with CT chest. 11. Place on sliding scale insulin with Accu-Cheks to maintain euglycemia. 12. Monitor CBC and coags. On Epogen with hemodialysis. 13. GI prophylaxis with Pepcid and DVT prophylaxis with SCDs. Start chemical anticoagulation prophylaxis if CT scan of brain is negative. 14. Further recommendations will be based on hospital course. MD SHELBY Mejia/MADDIE , 04:53 PM , 05:53 PM
[2017-07-31] MEDS: INSULIN NovoLIN REGULAR SUPPLEMENTAL SCALE SQ SCH (18:00)
[2017-07-31] MEDS ORDERED: VANCOMYCIN INJ 500 MG in SODIUM CHLOR 0.9% 250 ML INJ 250 ML IV ONE (18:00)
--- NOTE | 2017-07-31 19:59 | RADRPT ---
EXAM DATE/TIME: 07/31/2017 19:34 [facility] COMPARISON: No previous studies available for comparison. INDICATIONS : Altered mental status. RADIATION DOSE: 52.84 CTDIvol (mGy) MEDICAL HISTORY : Hypertension. Renal failure, chronic. Carcinoma, breast. SURGICAL HISTORY : None. ENCOUNTER: Initial ACUITY: 1 day PAIN SCALE: 0/10 LOCATION: cranial TECHNIQUE: Multiple contiguous axial images were obtained of the head. Using automated exposure control and adj ustment of the mA and/or kV according to patient size, radiation dose was kept as low as reasonably a chievable to obtain optimal diagnostic quality images. DICOM format image data is available electro nically for review and comparison. FINDINGS: CEREBRUM: The ventricles are normal for age. No evidence of midline shift, mass lesion, hemorrhage or acute in farction. No extra-axial fluid collections are seen. POSTERIOR FOSSA: The cerebellum and brainstem are intact. The 4th ventricle is midline. The cerebellopontine angle i s unremarkable. EXTRACRANIAL: The visualized portion of the orbits is intact. SKULL: The calvaria is intact. No evidence of skull fracture. CONCLUSION: Normal examination for a patient of this age. Gideon Jolly MD on July 31, 2017 at 19:56 Board Certified Radiologist. This report was verified electronically.
--- NOTE | 2017-07-31 20:23 | RADRPT ---
EXAM DATE/TIME: 07/31/2017 19:34 [facility] COMPARISON: No previous studies available for comparison. INDICATIONS : Abdomen pain. ORAL CONTRAST: No oral contrast ingested. RADIATION DOSE: 7.46 CTDIvol (mGy) ; Combined studies - Thorax/Abdomen/Pelvis MEDICAL HISTORY : Hypertension. Renal failure, chronic. Carcinoma, breast. SURGICAL HISTORY : None. ENCOUNTER: Initial ACUITY: 1 day PAIN SCALE: 0/10 LOCATION: abdomen TECHNIQUE: Volumetric scanning of the abdomen and pelvis was performed. Using automated exposure control and ad justment of the mA and/or kV according to patient size, radiation dose was kept as low as reasonably achievable to obtain optimal diagnostic quality images. DICOM format image data is available electro nically for review and comparison. FINDINGS: Lung bases demonstrate bilateral loculated pleural effusions of moderate size with pleural thickening and some consolidation atelectasis as well mostly anterior to the pleural effusions. Heart size is e nlarged. [place] kidneys are markedly atrophic with cystic change and calcifications in the renal parenchyma. N o acute findings in the lower, spleen, adrenals or pancreas. There is mild ascites in the abdomen mod erate ascites in the pelvis. Peritoneal dialysis catheter is present in the anterior pelvis. Calcified fibroid present posterior uterus. This measures about 2.3 cm in diameter. CONCLUSION: 1. Moderate-sized bilateral loculated pleural effusions at the lung bases with pleural thickening and adjacent atelectasis and consolidation. 2. Cardiomegaly. 3. Mild to moderate ascites. 4. Markedly atrophic the [place] kidneys. Peritoneal dialysis catheter present. 5. Mild ileus. No evidence for obstruction. Gideon Jolly MD on July 31, 2017 at 20:17 Board Certified Radiologist. This report was verified electronically.
--- NOTE | 2017-07-31 20:26 | RADRPT ---
EXAM DATE/TIME: 07/31/2017 19:34 [facility] COMPARISON: No previous studies available for comparison. INDICATIONS : Shortness of breath. RADIATION DOSE: 7.46 CTDIvol (mGy) ; Combined studies - Thorax/Abdomen/Pelvis MEDICAL HISTORY : Hypertension. Renal failure, chronic. Carcinoma, breast. SURGICAL HISTORY : None. ENCOUNTER: Initial ACUITY: 1 day PAIN SCALE: 0/10 LOCATION: chest TECHNIQUE: Volumetric scanning of the chest was performed. Using automated exposure control and adjustment of t he mA and/or kV according to patient size, radiation dose was kept as low as reasonably achievable to obtain optimal diagnostic quality images. DICOM format image data is available electronically for r eview and comparison. Follow-up recommendations for detected pulmonary nodules are based at a minimum on nodule size and pa tient risk factors according to Fleischner Society Guidelines. FINDINGS: Compare December 2016. Previous right pneumothorax has resolved. There is persistent right-sided pleura l thickening and loculated small to moderate size right pleural effusion. Partially loculated left pleural effusion has increased in size. Left basilar consolidation atelectas is also slightly worse. There is cardiomegaly. The abdomen CT for findings below the diaphragm. Healing right sided lower rib fractures noted. CONCLUSION: 1. Increase in partially loculated left pleural effusion since December 2016 with slight increase in at electasis and consolidation as well. Groundglass opacity in the lungs may represent mild pulmonary ed oneyda. 2. Interval resolution of right pneumothorax. Small to moderate loculated right pleural effusion sadi ins with extensive pleural thickening that is similar to prior exam. 3. Cardiomegaly. Gideon Jolly MD on July 31, 2017 at 20:20 Board Certified Radiologist. This report was verified electronically.
[2017-07-31] MEDS: PIPERACIL-TAZO 2.25 GM PREMIX 50 ML IV SCH (21:35)
[2017-07-31] MEDS: AZITHROMYCIN INJ 500 MG in SODIUM CHLOR 0.9% 250 ML INJ 250 ML IV SCH (21:36)
[2017-07-31] MEDS: METOPROLOL TARTRATE 25 MG TAB PO SCH (21:36)
[2017-07-31] MEDS: FAMOTIDINE 20 MG TAB PO SCH (21:36)
[2017-07-31] MEDS ORDERED: VANCOMYCIN INJ 500 MG in SODIUM CHLORIDE 0.9% INJ 100 ML IV ONE (22:00)
[2017-08-01] VITALS (21 sets, daily range): BP systolic 103–140; BP diastolic 56–73; PULSE 84–118; RESP 22–37; TEMP 97.8–99.4; O2SAT 92–100
[2017-08-01] MEDS: ACETAMINOPHEN 325 MG TAB PO PRN ×2 (00:09→05:31)
[2017-08-01 01:12] LABS: BICARBONATE 30.3 MEQ/L (21.0-32.0); CALCIUM 8.9 MG/DL (8.5-10.1); CREATININE 9.73 MG/DL (0.50-1.00)
[2017-08-01] MEDS: PIPERACIL-TAZO 2.25 GM PREMIX 50 ML IV SCH ×3 (02:54→18:01)
[2017-08-01] MEDS: RESP: ALBUTEROL 2.5 MG/IPRATROPIUM 0.5 MG NEB (SCH) INH ×6 (03:34→23:16)
[2017-08-01] MEDS: CHLORHEXIDINE GLUCONATE 2 % 1 PACK (2 CLOTHS) TOP SCH (04:00)
[2017-08-01 04:54] LABS: AUTOMATED NEUTROPHIL # 11.6 TH/MM3 (1.8-7.7); BASOPHIL # 0.1 TH/MM3 (0-0.2); BASOPHIL % 0.4 % (0.0-2.0); EOSINOPHIL # 0.1 TH/MM3 (0-0.4); EOSINOPHIL % 0.8 % (0.0-4.0); HEMATOCRIT 31.3 % (35.0-46.0); HEMOGLOBIN 9.8 GM/DL (11.6-15.3); LYMPH % 7.2 % (9.0-44.0); MEAN CORPUSCULAR HEMOGLOBIN 22.2 PG (27.0-34.0); MEAN CORPUSCULAR HGB CONC 31.3 % (32.0-36.0); MEAN PLATELET VOLUME 9.4 FL (7.0-11.0); MONO % 8.8 % (0.0-8.0); MONOCYTE # 1.2 TH/MM3 (0-0.9); NEUT % 82.8 % (16.0-70.0); PLATELET COUNT 157 TH/MM3 (150-450); RED BLOOD COUNT 4.41 MIL/MM3 (4.00-5.30); RED CELL DISTRIBUTION WIDTH 29.8 % (11.6-17.2); WHITE BLOOD COUNT 14.1 TH/MM3 (4.0-11.0)
[2017-08-01 05:15] LABS: ALBUMIN 2.8 GM/DL (3.4-5.0); ALKALINE PHOSPHATASE 93 U/L (45-117); ALT (GPT) 23 U/L (10-53); AST (GOT) 30 U/L (15-37); BICARBONATE 28.8 MEQ/L (21.0-32.0); BLOOD UREA NITROGEN 44 MG/DL (7-18); CALCIUM 8.6 MG/DL (8.5-10.1); CHLORIDE 94 MEQ/L (98-107); CREATININE 9.94 MG/DL (0.50-1.00); GLOMERULAR FILTRATION RATE 5 ML/MIN (>89); GLUCOSE,RANDOM 79 MG/DL (74-106); RANDOM VANCOMYCIN 11.1 COMMENT; SODIUM (NA) 137 MEQ/L (136-145); TOTAL BILIRUBIN ADULT 0.4 MG/DL (0.2-1.0); TOTAL PROTEIN 7.3 GM/DL (6.4-8.2)
[2017-08-01] MEDS: INSULIN NovoLIN REGULAR SUPPLEMENTAL SCALE SQ SCH ×4 (06:00→18:00)
--- NOTE | 2017-08-01 08:14 | MB ---
cc: Doretha Ernst MD DATE OF CONSULT: 07/31/2017 REASON FOR CONSULTATION: End-stage renal disease, on hemodialysis for management. HISTORY OF PRESENT ILLNESS: This is a 57-year-old female known to me for past medical history of hypertension, history of breast cancer, chronic anemia, end-stage renal disease, currently on peritoneal dialysis, was brought to the hospital with complaint of worsening shortness of breath. I was called to see the patient because of management of dialysis and very high potassium. She came with a potassium of 7.2. Also, it was found that her creatinine was very high, it was 16.1 when she came in here. She previously had creatinine of 628. The patient is confused and not able to give much history, but seems like she has been missing her dialysis. She has worsening respiratory failure for the last 2 or 3 days and was not able to talk when she came in, now currently she is on dialysis and her blood pressure is on the higher side and she is able to answer some of the simple questions. PAST MEDICAL HISTORY: Hypertension, breast cancer, chronic anemia, history of pleural effusion, end-stage renal disease, on peritoneal dialysis. PAST SURGICAL HISTORY: History of AV fistula surgery, Tenckhoff catheter placement and removal, Infusaport placement. REVIEW OF SYSTEMS: Limited since the patient is not answering most of the questions. She denies any chest pain. She has shortness of breath with cough, which is mainly dry. She still off and on has some confusion and currently with a wrist strain. SOCIAL HISTORY: The patient lives with her mother. There is no history of smoking or alcoholism. FAMILY HISTORY: Noncontributory. ALLERGIES: SHE HAS NO KNOWN DRUG ALLERGIES. MEDICATIONS: The patient received DuoNeb nebulization, Pepcid 10 mg every 12 hours, azithromycin 500 mg IV every 24 hours, regular insulin sliding scale, Zosyn 4.5 grams IV every 8 hours, Zofran as needed, Benedict as needed. PHYSICAL EXAMINATION: GENERAL: The patient is awake. She is in moderate respiratory distress. Currently, she is on dialysis and she is not fully oriented. VITAL SIGNS: Her last blood pressure is recorded 156/80, during dialysis temperature is 98.6, oxygen saturation on 8 liters simple mask is 98%. HEENT: Pupils are mid-constricted. Nonicteric sclerae. Conjunctivae are pale. NECK: Supple. JVD is slightly elevated. LUNGS: The patient has bilateral decreased air entry with basilar rales and scattered wheezing. HEART: S1, S2. Regular rhythm. ABDOMEN: Distended, soft, lax. There is no tenderness. EXTREMITIES: She has mild leg edema. INVESTIGATIONS: WBC count is 16.2, hemoglobin 11.6, platelet count of 282, neutrophils 90.1. Sodium 131, potassium 7.2, chloride 91, bicarbonate 21, BUN 83, creatinine 16.1. Lactic acid is 4.6. Calcium is 9.5, AST is 45, ALT is 28, alkaline phosphatase 119, total protein is 8.8, albumin is 3.4. INR is 1.5. Urinalysis not done. IMAGING STUDIES: The patient has a chest x-ray done, which shows that she has right pleural effusion, with possible airspace disease at the left lung base and trace left pleural effusion. ASSESSMENT AND PLAN: 1. Respiratory failure and pleural effusion. 2. Hyperkalemia. 3. Very high creatinine, possibility of uremia. 4. Hypertension. 5. History of breast cancer. The patient has a very high BUN and creatinine and potassium is high and she has metabolic acidosis. Most likely she has been missing some of her peritoneal dialysis treatment. She has AV fistula, so now we are running with hemodialysis and trying to remove more fluid to improve her breathing. Pulmonary has been consulted, possibly will need thoracentesis. In the meantime, also she is getting antibiotic for the possibility of pneumonia. She has also received calcium gluconate, sodium bicarbonate and Kayexalate for her hyperkalemia. We are running with a low potassium bath. Follow the BUN, creatinine and potassium level. Thank you for the consultation and I will follow the patient while she is in the hospital. MD ROYAL Kwan/MARITZA , 04:21 PM , 06:45 PM
[2017-08-01] MEDS: FAMOTIDINE 20 MG TAB PO SCH ×2 (09:00→21:59)
--- NOTE | 2017-08-01 10:18 | HHI.CCPN ---
Subjective Remarks/Hospital Course Patient is a 57-year-old female with past medical history of hypertension, end- stage renal disease, on peritoneal dialysis, anemia of chronic disease, GERD and breast cancer, who presented to [facility] ED by EMS with complaints of shortness of breath for several days, worse with exertion. On arrival to the ED, she was tachycardic and hypertensive with a systolic blood pressure in the 170s. Her laboratory data is significant for hyperkalemia with a potassium level of 7.2, creatinine 16.1 and lactic acidosis with a lactic acid level of 4.6. Also, she was found to have leukocytosis with a WBC of 16. The patient is afebrile. Chest x-ray in the ED showed stable airspace consolidation with some volume loss in the right lung, a small loculated right lateral pleural effusion, airspace disease in the left lung base. In the ED, she was treated for hyperkalemia with 10 units of IV insulin given along with calcium, D50, sodium bicarbonate, Kayexalate. Also, she received cefepime and azithromycin. Dr. Ernst was notified from nephrology service and the patient was taken emergently to the dialysis suite to undergo hemodialysis. According to ED records, patient had peritoneal dialysis last night. Most of the history was obtained from reviewing medical records as patient is a poor historian. She had an ABG performed on 8 L simple mask, which showed a pH of 7.33, CO2 of 41, PaO2 of 75, bicarbonate 21, and saturation of 90%. She was seen in the dialysis suite where she is receiving hemodialysis. Her current blood pressure is 124/94 with a pulse of 72 and saturation 100% on 8 L simple mask. 08/01 Patient s/p HD yesterday with removal 4L. Currently receiving anither HD treatment. K:4.6 this morning with Lactic acid level 1.3. Awake, alert. Afebrile. Objective Vital Signs Date Time Temp Pulse Resp B/P (MAP) Pulse Ox O2 Delivery O2 Flow Rate FiO2 08/01/17 08:00 89 08/01/17 08:00 98.0 22 140/66 (90) 100 08/01/17 07:00 Nasal Cannula 2.00 07/31/17 15:13 97 Intake and Output 08/01/17 08/01/17 08/02/17 08:00 16:00 00:00 Intake Total 240 ml Output Total 0 ml Balance 240 ml Result Diagram: 08/01/17 0406 08/01/17 0406 Other Results Laboratory Tests Test 07/31/17 14:00 07/31/17 15:15 07/31/17 15:41 07/31/17 20:55 White Blood Count 16.2 TH/MM3 Red Blood Count 5.25 MIL/MM3 Hemoglobin 11.6 GM/DL Hematocrit 37.8 % Mean Corpuscular Volume 72.1 FL Mean Corpuscular Hemoglobin 22.1 PG Mean Corpuscular Hemoglobin Concent 30.7 % Red Cell Distribution Width 31.3 % Platelet Count 282 TH/MM3 Mean Platelet Volume 8.9 FL Neutrophils (%) (Auto) 90.1 % Lymphocytes (%) (Auto) 4.8 % Monocytes (%) (Auto) 4.8 % Eosinophils (%) (Auto) 0.0 % Basophils (%) (Auto) 0.3 % Neutrophils # (Auto) 14.6 TH/MM3 Lymphocytes # (Auto) 0.8 TH/MM3 Monocytes # (Auto) 0.8 TH/MM3 Eosinophils # (Auto) 0.0 TH/MM3 Basophils # (Auto) 0.0 TH/MM3 CBC Comment AUTO DIFF Differential Comment AUTO DIFF CONFIRMED Platelet Estimate NORMAL Platelet Morphology Comment ENLARGED Target Cells 1+ Tear Drop Cells 1+ Ovalocytes 1+ Keratocytes 1+ Blood Urea Nitrogen 83 MG/DL Creatinine 16.12 MG/DL Random Glucose 97 MG/DL Total Protein 8.8 GM/DL Albumin 3.4 GM/DL Calcium Level 9.5 MG/DL Alkaline Phosphatase 119 U/L Aspartate Amino Transf (AST/SGOT) 45 U/L Alanine Aminotransferase (ALT/SGPT) 28 U/L Total Bilirubin 0.5 MG/DL Sodium Level 131 MEQ/L Potassium Level 7.2 MEQ/L Chloride Level 91 MEQ/L Carbon Dioxide Level 21.0 MEQ/L Anion Gap 19 MEQ/L Estimat Glomerular Filtration Rate 3 ML/MIN Lactic Acid Level 4.6 mmol/L Prothrombin Time 14.7 SEC Prothromb Time International Ratio 1.5 RATIO Activated Partial Thromboplast Time 26.7 SEC Blood Gas Puncture Site RT RADIAL Blood Gas Patient Temperature 98.6 Blood Gas HCO3 21 mmol/L Blood Gas Base Excess -3.8 mmol/L Blood Gas Oxygen Saturation 90 % Arterial Blood pH 7.33 Arterial Blood Partial Pressure CO2 41 mmHg Arterial Blood Partial Pressure O2 75 mmHG Arterial Blood Oxygen Content 13.5 Vol % Arterial Blood Carboxyhemoglobin 1.9 % Arterial Blood Methemoglobin 0.6 % Blood Gas Hemoglobin 10.6 G/DL Oxygen Delivery Device MASK Blood Gas Liter Flow 8 L/M Nasal Screen MRSA (PCR) MRSA NOT DETECTED Test 08/01/17 00:39 08/01/17 04:06 Blood Urea Nitrogen 42 MG/DL 44 MG/DL Creatinine 9.73 MG/DL 9.94 MG/DL Random Glucose 81 MG/DL 79 MG/DL Calcium Level 8.9 MG/DL 8.6 MG/DL Sodium Level 138 MEQ/L 137 MEQ/L Potassium Level 4.7 MEQ/L 4.6 MEQ/L Chloride Level 93 MEQ/L 94 MEQ/L Carbon Dioxide Level 30.3 MEQ/L 28.8 MEQ/L Anion Gap 15 MEQ/L 14 MEQ/L Estimat Glomerular Filtration Rate 5 ML/MIN 5 ML/MIN Lactic Acid Level 1.6 mmol/L 1.3 mmol/L B-Type Natriuretic Peptide GREATER THAN 5000 PG/ML White Blood Count 14.1 TH/MM3 Red Blood Count 4.41 MIL/MM3 Hemoglobin 9.8 GM/DL Hematocrit 31.3 % Mean Corpuscular Volume 71.0 FL Mean Corpuscular Hemoglobin 22.2 PG Mean Corpuscular Hemoglobin Concent 31.3 % Red Cell Distribution Width 29.8 % Platelet Count 157 TH/MM3 Mean Platelet Volume 9.4 FL Neutrophils (%) (Auto) 82.8 % Lymphocytes (%) (Auto) 7.2 % Monocytes (%) (Auto) 8.8 % Eosinophils (%) (Auto) 0.8 % Basophils (%) (Auto) 0.4 % Neutrophils # (Auto) 11.6 TH/MM3 Lymphocytes # (Auto) 1.0 TH/MM3 Monocytes # (Auto) 1.2 TH/MM3 Eosinophils # (Auto) 0.1 TH/MM3 Basophils # (Auto) 0.1 TH/MM3 CBC Comment AUTO DIFF Differential Comment AUTO DIFF CONFIRMED Total Protein 7.3 GM/DL Albumin 2.8 GM/DL Alkaline Phosphatase 93 U/L Aspartate Amino Transf (AST/SGOT) 30 U/L Alanine Aminotransferase (ALT/SGPT) 23 U/L Total Bilirubin 0.4 MG/DL Random Vancomycin Level 11.1 COMMENT Imaging Last Impressions Head CT 07/31/17 1543 Signed Impressions: Service Date/Time: Monday, July 31, 2017 19:34 - CONCLUSION: Normal examination for a patient of this age. Gideon Jolly MD Chest CT 07/31/17 1543 Signed Impressions: Service Date/Time: Monday, July 31, 2017 19:34 - CONCLUSION: 1. Increase in partially loculated left pleural effusion since December 2016 with slight increase in atelectasis and consolidation as well. Groundglass opacity in the lungs may represent mild pulmonary edema. 2. Interval resolution of right pneumothorax. Small to moderate loculated right pleural effusion remains with extensive pleural thickening that is similar to prior exam. 3. Cardiomegaly. Gideon Jolly MD Abdomen/Pelvis CT 07/31/17 1543 Signed Impressions: Service Date/Time: Monday, July 31, 2017 19:34 - CONCLUSION: 1. Moderate-sized bilateral loculated pleural effusions at the lung bases with pleural thickening and adjacent atelectasis and consolidation. 2. Cardiomegaly. 3. Mild to moderate ascites. 4. Markedly atrophic tribal kidneys. Peritoneal dialysis catheter present. 5. Mild ileus. No evidence for obstruction. Gideon Jolly MD Chest X-Ray 07/31/17 4385 Signed Impressions: Service Date/Time: Monday, July 31, 2017 14:36 - CONCLUSION: 1. Stable volume loss and airspace consolidation throughout the right lung. 2. Mild interval enlargement of small loculated right lateral pleural effusion. 3. Stable trace left pleural effusion with developing left lung base airspace disease which may reflect atelectasis. Garrett Ace MD Objective Remarks GENERAL: Patient i s57 yo lying in bed in NAD SKIN: Warm and dry. HEAD: Normocephalic. EYES: No scleral icterus. No injection or drainage. NECK: Supple, trachea midline. No JVD or lymphadenopathy. CARDIOVASCULAR: Regular rate and rhythm without murmurs, gallops, or rubs. RESPIRATORY: Breath sounds equal bilaterally. No accessory muscle use. GASTROINTESTINAL: Abdomen soft, non-tender, nondistended. MUSCULOSKELETAL: No cyanosis, or edema. Neuro: Awake and alert A/P Assessment and Plan 1. Respiratory insufficiency. 2.. End-stage renal disease. 3. Lactic acidemia- resolved 5. Leukocytosis. 6. Loculated pleural effusions 7. Anemia of chronic disease. 8. Gastroesophageal reflux disease. 9. Hypertension. 10. History of breast CA, status post chemo and radiation therapy. Plan Neuro: Monitor neuro status and avoid any sedatives. CT brain 07/31: No acute process Pulm: Wean down oxygen and maintain sats > 92%. Bronchodilators CT chest: Increase in partially loculated left pleural effusion since December 2016 with slight increase in atelectasis and consolidation as well. Small to moderate loculated right pleural effusion remains with extensive pleural thickening that is similar to prior exam. CV: Monitor HR and BP and maintain MAP > 65 mmHg. On Lopressor 25 mg b.i.d., Norvasc 5 mg b.i.d. Lactic acid cleared : Monitor renal function, I's and O's and avoid nephrotoxins. s/p HD emergent yesterday with removal 4L receiving another HD treatment. Renal is following-Dr. Ernst GI: on Pepcid for GI prophylaxis. Monitor LFTs. Start PO renal diet CT abd/pelvis: Mild ileus no signs obstruction. ID: Continue abx( Zosyn, vancomycin, azithromycin) Monitor for signs of infection( fever and WBC). Follow up on blood cultures. check a sputum culture with Gram stain. nasal washing to rule out influenza and check Strep pneumonia and legionella urinary antigen are pending Endo: SSI with Accu-Cheks to maintain euglycemia. Heme: Monitor CBC and coags. On Epogen with hemodialysis. GI prophylaxis with Pepcid and DVT prophylaxis with SCDs/heparin SQ Level 2 Estevan Bhakta MD Aug 01, 2017 10:18
[2017-08-01] MEDS: METOPROLOL TARTRATE 25 MG TAB PO SCH ×2 (11:14→21:59)
[2017-08-01] MEDS: amLODIPine BESYLATE 5 MG TAB PO SCH (11:14)
[2017-08-01] MEDS ORDERED: SODIUM CHLORIDE 0.9% FLUSH 10 ML FLUSH IV FLUSH PRN (15:00)
[2017-08-01] MEDS ORDERED: HEPARIN SODIUM - IV 10,000 UNITS/10 ML VIAL XX PRN (15:00)
--- NOTE | 2017-08-01 15:05 | HHI.NPPN ---
Subjective History of Present Illness This is a 57-year-old female known to me for past medical history of hypertension, history of breast cancer, chronic anemia, end-stage renal disease , currently on peritoneal dialysis, was brought to the hospital with complaint of worsening shortness of breath.Nephrology is consulted to see the patient because of management of dialysis and very high potassium. She came with a potassium of 7.2. Also, it was found that her creatinine was very high, it was 16.1 when she came in here. She previously had creatinine of 628. The patient is confused and not able to give much history, but seems like she has been missing her dialysis. She has worsening respiratory failure for the last 2 or3 days and was not able to talk when she came in, now currently she is on dialysis and her blood pressure is on the higher side and she is able to answer some of the simple questions. Additional Remarks Patient is resting comfortably. HD yesterday and today. Mild SOB (Ariela Snider) Review of Systems Respiratory Lungs: SOB (Ariela Snider) Cardiovascular Cardiac Remarks denies CP (Ariela Snider) Gastrointestinal GI Remarks Denies Abdominal pain Poor appetite (Ariela Snider) Objective Data Data 08/01/17 08/02/17 18:59 06:59 Output Total 2500 ml Balance -2500 ml Hemodialysis 2500 ml Vital Signs Date Time Temp Pulse Resp B/P (MAP) Pulse Ox O2 Delivery O2 Flow Rate FiO2 08/01/17 12:00 98.0 89 28 126/60 (82) 100 08/01/17 12:00 89 08/01/17 11:43 99 Nasal Cannula 4.00 08/01/17 11:00 87 08/01/17 10:00 88 08/01/17 09:00 84 08/01/17 08:00 89 08/01/17 08:00 98.0 89 22 140/66 (90) 100 08/01/17 07:00 89 08/01/17 07:00 96 Nasal Cannula 2.00 08/01/17 06:31 18 08/01/17 06:00 91 08/01/17 04:00 98.7 92 25 128/70 (89) 100 08/01/17 04:00 92 08/01/17 02:00 93 08/01/17 00:00 118 08/01/17 00:00 99.4 118 37 135/73 (93) 100 07/31/17 22:00 120 07/31/17 21:30 100 Simple Mask 8.00 07/31/17 21:00 07/31/17 20:41 128 32 131/79 (96) 98 Simple Mask 8.00 07/31/17 20:00 98.3 126 25 140/83 (102) 98 07/31/17 15:13 108 36 173/88 (116) Simple Mask 8.00 97 (Ariela Snider) -: 08/01/17 0406 08/01/17 0406 Imaging Last Impressions Head CT 07/31/17 1543 Signed Impressions: Service Date/Time: Monday, July 31, 2017 19:34 - CONCLUSION: Normal examination for a patient of this age. Gideon Jolly MD Chest CT 07/31/17 1543 Signed Impressions: Service Date/Time: Monday, July 31, 2017 19:34 - CONCLUSION: 1. Increase in partially loculated left pleural effusion since December 2016 with slight increase in atelectasis and consolidation as well. Groundglass opacity in the lungs may represent mild pulmonary edema. 2. Interval resolution of right pneumothorax. Small to moderate loculated right pleural effusion remains with extensive pleural thickening that is similar to prior exam. 3. Cardiomegaly. Gideon Jolly MD Abdomen/Pelvis CT 07/31/17 1543 Signed Impressions: Service Date/Time: Monday, July 31, 2017 19:34 - CONCLUSION: 1. Moderate-sized bilateral loculated pleural effusions at the lung bases with pleural thickening and adjacent atelectasis and consolidation. 2. Cardiomegaly. 3. Mild to moderate ascites. 4. Markedly atrophic [place] kidneys. Peritoneal dialysis catheter present. 5. Mild ileus. No evidence for obstruction. Gideon Jolly MD Chest X-Ray 07/31/17 1351 Signed Impressions: Service Date/Time: Monday, July 31, 2017 14:36 - CONCLUSION: 1. Stable volume loss and airspace consolidation throughout the right lung. 2. Mild interval enlargement of small loculated right lateral pleural effusion. 3. Stable trace left pleural effusion with developing left lung base airspace disease which may reflect atelectasis. Garrett Bozorgmanesh, MD (Ariela Snider) Physical Exam General Appearance: No Acute Distress, Comfortable (Ariela Snider [employer]) Throat Throat Exam: Oral Mucosa [place] & Moist (Ariela Snider [employer]) Pulmonary Resp Exam: Clear Bilaterally, Decreased Bases (Ariela Snider [employer]) Cardiology CV Exam: Regular (Ariela SniderP) Gastrointestinal/Abdomen GI Exam: Soft, Non-Tender, Bowel Sounds Present (Ariela Snider [employer]) Genitourinary Exam: Flank Non-Tender (Ariela SniderP) Integumentary Skin Exam: Clear, Warm (Ariela SniderP) Extremeties Extremities Exam: No Edema (Ariela SniderP) Neurologic Neuro Exam: Alert, Awake (Ariela Snider) Assessment/Plan Discussed Condition With: Patient Assessment Summary: Anemia of CKD, End Stage Renal Disease Problem List: (1) ESRD (end stage renal disease) on dialysis ICD Codes: N18.6 - End stage renal disease; Z99.2 - Dependence on renal dialysis Plan: ESRD on PD. On admission had a very high BUN, creatinine, and potassium. Also metabolic acidosis. Most likely she has been missing some of her peritoneal dialysis treatment. HD started yesterday and again today with AV fistula. Labs are improving with normal potassium today. HD yesterday with 4 liters removed and today 2.5 liters Will resume PD tomorrow labs in AM (2) Hypertension ICD Codes: I10 - Essential (primary) hypertension Status: Acute Plan: Well controlled (Ariela Snider) Problem List: (1) ESRD (end stage renal disease) on dialysis ICD Codes: N18.6 - End stage renal disease; Z99.2 - Dependence on renal dialysis Plan: ESRD on PD. On admission had a very high BUN, creatinine, and potassium. Also metabolic acidosis. Most likely she has been missing some of her peritoneal dialysis treatment. HD started yesterday and again today with AV fistula. Labs are improving with normal potassium today. HD yesterday with 4 liters removed and today 2.5 liters Will resume PD tomorrow labs in AM. Patient seen and examined, agree with above. Restart PD from tomorrow. (2) Hypertension ICD Codes: I10 - Essential (primary) hypertension Status: Acute Plan: Well controlled (Brina Ernst MD) Ariela Snider Aug 01, 2017 15:05 Brina Ernst MD Aug 01, 2017 18:21
[2017-08-01] MEDS ORDERED: VANCOMYCIN 1,000 MG/NS 250 ML IV ONE ×2 (16:00)
--- NOTE | 2017-08-01 16:06 | EKG ---
Date Performed: 07/31/2017 Time Performed: 13:55:04 PTAGE: 57 years EKG: POSSIBLE MULTIFOCAL ATRIAL TACHYCARDIA LEFT ANTERIOR FASCICULAR BLOCK MINIMAL VOLTAGE [place]IE FOR LVH, CONSIDER NORMAL VARIANT T-WAVE ABNORMALITY, CONSIDER LATERAL ISCHEMIA ABNORMAL ECG PREVIOUS TRACING : 01/08/2017 13.44 Compared to previous tracing, possible multifocal atrial ta chycardia has replaced Sinus rhythm . DOCTOR: Vitaly Blackwell Interpretating Date/Time 08/01/2017 16:05:01
[2017-08-01] MEDS: AZITHROMYCIN INJ 500 MG in SODIUM CHLOR 0.9% 250 ML INJ 250 ML IV SCH (18:53)
[2017-08-01] MEDS: HEPARIN SODIUM - SQ 10,000 UNITS/ML VIAL SQ SCH (21:59)
[2017-08-02] VITALS (13 sets, daily range): BP systolic 110–133; BP diastolic 57–67; PULSE 75–91; RESP 21–29; TEMP 97.5–98.5; O2SAT 95–100
[2017-08-02] MEDS: PIPERACIL-TAZO 2.25 GM PREMIX 50 ML IV SCH ×3 (01:54→18:30)
[2017-08-02] MEDS: CHLORHEXIDINE GLUCONATE 2 % 1 PACK (2 CLOTHS) TOP SCH (04:00)
[2017-08-02] MEDS: RESP: ALBUTEROL 2.5 MG/IPRATROPIUM 0.5 MG NEB (SCH) INH ×3 (04:00→11:56)
--- NOTE | 2017-08-02 05:10 | RADRPT ---
EXAM DATE/TIME: 08/02/2017 03:03 [facility] COMPARISON: CHEST SINGLE AP, July 31, 2017, 14:36. INDICATIONS : Shortness of breath. MEDICAL HISTORY : Hypertension. Renal disease, end stage. Carcinoma, breast. SURGICAL HISTORY : None. ENCOUNTER: Initial ACUITY: 2 days PAIN SCORE: Non-responsive. LOCATION: Bilateral chest FINDINGS: There is persistent dense consolidation involving most of the right lung with some aerated right lung . There is associated right pleural effusion. Persisting consolidation in the left lower lobe with loss of delineation left hemidiaphragm. CONCLUSION: Stable consolidative infiltrates in the medial and lower right lung and retrocardiac left lower lung and stable right pleural effusion. Lawrence Lynn MD on August 02, 2017 at 5:07 Board Certified Radiologist. This report was verified electronically.
[2017-08-02] MEDS: INSULIN NovoLIN REGULAR SUPPLEMENTAL SCALE SQ SCH ×5 (06:00→23:00)
[2017-08-02] MEDS: amLODIPine BESYLATE 5 MG TAB PO SCH (08:06)
[2017-08-02] MEDS: FAMOTIDINE 20 MG TAB PO SCH ×2 (08:06→20:48)
[2017-08-02] MEDS: METOPROLOL TARTRATE 25 MG TAB PO SCH ×2 (08:06→20:48)
[2017-08-02] MEDS: HEPARIN SODIUM - SQ 10,000 UNITS/ML VIAL SQ SCH ×2 (08:07→20:48)
[2017-08-02 08:14] LABS: AUTOMATED NEUTROPHIL # 7.5 TH/MM3 (1.8-7.7); BASOPHIL # 0.1 TH/MM3 (0-0.2); EOSINOPHIL # 0.5 TH/MM3 (0-0.4); EOSINOPHIL % 4.6 % (0.0-4.0); HEMATOCRIT 31.8 % (35.0-46.0); HEMOGLOBIN 9.9 GM/DL (11.6-15.3); LYMPH % 8.6 % (9.0-44.0); LYMPHOCYTE # 0.9 TH/MM3 (1.0-4.8); MEAN CELL VOLUME 71.7 FL (80.0-100.0); MEAN CORPUSCULAR HEMOGLOBIN 22.4 PG (27.0-34.0); MEAN CORPUSCULAR HGB CONC 31.3 % (32.0-36.0); MEAN PLATELET VOLUME 9.2 FL (7.0-11.0); MONO % 10.8 % (0.0-8.0); MONOCYTE # 1.1 TH/MM3 (0-0.9); PLATELET COUNT 228 TH/MM3 (150-450); RED BLOOD COUNT 4.43 MIL/MM3 (4.00-5.30); RED CELL DISTRIBUTION WIDTH 28.6 % (11.6-17.2)
[2017-08-02 08:38] LABS: CALCIUM 7.8 MG/DL (8.5-10.1); CREATININE 7.21 MG/DL (0.50-1.00); PHOSPHORUS 4.8 MG/DL (2.5-4.9)
[2017-08-02] MEDS ORDERED: CALCITRIOL 0.5 MCG PO SCH (09:30)
--- NOTE | 2017-08-02 09:33 | HHI.NPPN ---
Subjective History of Present Illness This is a 57-year-old female known to me for past medical history of hypertension, history of breast cancer, chronic anemia, end-stage renal disease , currently on peritoneal dialysis, was brought to the hospital with complaint of worsening shortness of breath.Nephrology is consulted to see the patient because of management of dialysis and very high potassium. She came with a potassium of 7.2. Also, it was found that her creatinine was very high, it was 16.1 when she came in here. She previously had creatinine of 628. The patient is confused and not able to give much history, but seems like she has been missing her dialysis. She has worsening respiratory failure for the last 2 or3 days and was not able to talk when she came in, now currently she is on dialysis and her blood pressure is on the higher side and she is able to answer some of the simple questions. Additional Remarks Patient is resting comfortably eating breakfast. Denies any SOB. PD today. (Ariela Snider) Review of Systems Respiratory Respiratory Remarks Denies any SOB (Ariela Snider) Cardiovascular Cardiac Remarks denies CP (Ariela Snider) Gastrointestinal GI Remarks Denies Abdominal pain (Ariela Snider) Objective Data Data Vital Signs Date Time Temp Pulse Resp B/P (MAP) Pulse Ox O2 Delivery O2 Flow Rate FiO2 08/02/17 07:28 100 Nasal Cannula 2.00 08/02/17 06:00 80 08/02/17 04:00 98.4 80 21 121/57 (78) 100 08/02/17 04:00 80 08/02/17 02:00 91 08/02/17 00:00 83 08/02/17 00:00 98.5 83 27 119/63 (81) 99 08/01/17 22:00 99 08/01/17 20:15 97 Nasal Cannula 2.00 08/01/17 20:00 98.7 98 34 103/56 (72) 98 08/01/17 20:00 98 08/01/17 19:00 96 Nasal Cannula 2.00 08/01/17 18:00 95 08/01/17 16:01 92 21 08/01/17 16:00 95 08/01/17 16:00 97.8 95 35 140/66 (90) 99 08/01/17 15:00 92 08/01/17 14:00 94 08/01/17 13:01 87 08/01/17 13:00 86 08/01/17 12:00 98.0 89 28 126/60 (82) 100 08/01/17 12:00 89 08/01/17 11:43 99 Nasal Cannula 4.00 08/01/17 11:00 87 08/01/17 10:00 88 (Ariela Snider) -: 08/02/17 0705 08/02/17 0705 Imaging Last Impressions Chest X-Ray 08/02/17 0600 Signed Impressions: Service Date/Time: Wednesday, August 02, 2017 03:03 - CONCLUSION: Stable consolidative infiltrates in the medial and lower right lung and retrocardiac left lower lung and stable right pleural effusion. Lawrence Lynn MD Head CT 07/31/17 1543 Signed Impressions: Service Date/Time: Monday, July 31, 2017 19:34 - CONCLUSION: Normal examination for a patient of this age. Gideon Jolly MD Chest CT 07/31/17 1543 Signed Impressions: Service Date/Time: Monday, July 31, 2017 19:34 - CONCLUSION: 1. Increase in partially loculated left pleural effusion since December 2016 with slight increase in atelectasis and consolidation as well. Groundglass opacity in the lungs may represent mild pulmonary edema. 2. Interval resolution of right pneumothorax. Small to moderate loculated right pleural effusion remains with extensive pleural thickening that is similar to prior exam. 3. Cardiomegaly. Gideon Jolly MD Abdomen/Pelvis CT 07/31/17 1543 Signed Impressions: Service Date/Time: Monday, July 31, 2017 19:34 - CONCLUSION: 1. Moderate-sized bilateral loculated pleural effusions at the lung bases with pleural thickening and adjacent atelectasis and consolidation. 2. Cardiomegaly. 3. Mild to moderate ascites. 4. Markedly atrophic [place] kidneys. Peritoneal dialysis catheter present. 5. Mild ileus. No evidence for obstruction. Gideon Jolly MD (Ariela Snider) Physical Exam General Appearance: No Acute Distress, Comfortable (Ariela Snider) Throat Throat Exam: Oral Mucosa [place] & Moist (Ariela Snider) Pulmonary Resp Exam: Clear Bilaterally, Decreased Bases (Ariela Snider) Cardiology CV Exam: Regular (Ariela Snider) Gastrointestinal/Abdomen GI Exam: Soft, Non-Tender, Bowel Sounds Present (Ariela Snider) Genitourinary Exam: Flank Non-Tender (Ariela Snider) Integumentary Skin Exam: Clear, Warm (Ariela Snider) Extremeties Extremities Exam: No Edema (Ariela Snider) Neurologic Neuro Exam: Alert, Awake (Ariela Snider) Assessment/Plan Discussed Condition With: Patient Assessment Summary: Anemia of CKD, End Stage Renal Disease Electrolyte Assessment: Hypocalcemia Problem List: (1) ESRD (end stage renal disease) on dialysis ICD Codes: N18.6 - End stage renal disease; Z99.2 - Dependence on renal dialysis Plan: ESRD on PD. On admission had a very high BUN, creatinine, and potassium. Also metabolic acidosis. Most likely she has been missing some of her peritoneal dialysis treatment. Had two HD and now will restart PD. HD yesterday with 2.5 L removed. Calcitrol resumed for hypocalcemia. PD today (2) Hypertension ICD Codes: I10 - Essential (primary) hypertension Status: Acute Plan: Well controlled (Ariela Snider) Problem List: (1) ESRD (end stage renal disease) on dialysis ICD Codes: N18.6 - End stage renal disease; Z99.2 - Dependence on renal dialysis Plan: ESRD on PD. On admission had a very high BUN, creatinine, and potassium. Also metabolic acidosis. Most likely she has been missing some of her peritoneal dialysis treatment. Had two HD and now will restart PD. HD yesterday with 2.5 L removed. Calcitrol resumed for hypocalcemia. Patient seen and examined, agree with above. To start back on PD. (2) Hypertension ICD Codes: I10 - Essential (primary) hypertension Status: Acute Plan: Well controlled (Brina Ernst MD) Ariela Snider Aug 02, 2017 09:33 Brina Ernst MD Aug 02, 2017 22:54
[2017-08-02 09:36] LABS: KERATOCYTES 1+ (NORMAL); OVALOCYTES 1+ (NORMAL); TEARDROP RBCS 1+ (NORMAL)
--- NOTE | 2017-08-02 14:29 | HHI.CCPN ---
Subjective Remarks/Hospital Course Patient is a 57-year-old female with past medical history of hypertension, end- stage renal disease, on peritoneal dialysis, anemia of chronic disease, GERD and breast cancer, who presented to [facility] ED by EMS with complaints of shortness of breath for several days, worse with exertion. On arrival to the ED, she was tachycardic and hypertensive with a systolic blood pressure in the 170s. Her laboratory data is significant for hyperkalemia with a potassium level of 7.2, creatinine 16.1 and lactic acidosis with a lactic acid level of 4.6. Also, she was found to have leukocytosis with a WBC of 16. The patient is afebrile. Chest x-ray in the ED showed stable airspace consolidation with some volume loss in the right lung, a small loculated right lateral pleural effusion, airspace disease in the left lung base. In the ED, she was treated for hyperkalemia with 10 units of IV insulin given along with calcium, D50, sodium bicarbonate, Kayexalate. Also, she received cefepime and azithromycin. Dr. Ernst was notified from nephrology service and the patient was taken emergently to the dialysis suite to undergo hemodialysis. According to ED records, patient had peritoneal dialysis last night. Most of the history was obtained from reviewing medical records as patient is a poor historian. She had an ABG performed on 8 L simple mask, which showed a pH of 7.33, CO2 of 41, PaO2 of 75, bicarbonate 21, and saturation of 90%. She was seen in the dialysis suite where she is receiving hemodialysis. Her current blood pressure is 124/94 with a pulse of 72 and saturation 100% on 8 L simple mask. 08/01: Patient s/p HD yesterday with removal 4L. Currently receiving another HD treatment. K:4.6 this morning with Lactic acid level 1.3. Awake, alert. Afebrile. 08/02: Breathing comfortably getting ready to eat lunch. Chest x-ray remains unchanged from admission. Right lung consolidation/atelectasis and volume loss appears chronic. (Had pleurodesis done 01/24/17) Objective Vital Signs Date Time Temp Pulse Resp B/P (MAP) Pulse Ox O2 Delivery O2 Flow Rate FiO2 08/02/17 10:00 79 08/02/17 08:00 98.5 28 133/67 (89) 99 08/02/17 07:28 Nasal Cannula 2.00 08/01/17 16:01 21 Intake and Output 08/02/17 08/02/17 08/03/17 08:00 16:00 00:00 Intake Total 480 ml Output Total 0 ml Balance 480 ml Result Diagram: 08/02/17 0705 08/02/17 0705 Imaging Last Impressions Head CT 07/31/17 1543 Signed Impressions: Service Date/Time: Monday, July 31, 2017 19:34 - CONCLUSION: Normal examination for a patient of this age. Gideon Jolly MD Chest CT 07/31/17 1543 Signed Impressions: Service Date/Time: Monday, July 31, 2017 19:34 - CONCLUSION: 1. Increase in partially loculated left pleural effusion since December 2016 with slight increase in atelectasis and consolidation as well. Groundglass opacity in the lungs may represent mild pulmonary edema. 2. Interval resolution of right pneumothorax. Small to moderate loculated right pleural effusion remains with extensive pleural thickening that is similar to prior exam. 3. Cardiomegaly. Gideon Jolly MD Abdomen/Pelvis CT 07/31/17 1543 Signed Impressions: Service Date/Time: Monday, July 31, 2017 19:34 - CONCLUSION: 1. Moderate-sized bilateral loculated pleural effusions at the lung bases with pleural thickening and adjacent atelectasis and consolidation. 2. Cardiomegaly. 3. Mild to moderate ascites. 4. Markedly atrophic [place] kidneys. Peritoneal dialysis catheter present. 5. Mild ileus. No evidence for obstruction. Gideon Jolly MD Chest X-Ray 07/31/17 1355 Signed Impressions: Service Date/Time: Monday, July 31, 2017 14:36 - CONCLUSION: 1. Stable volume loss and airspace consolidation throughout the right lung. 2. Mild interval enlargement of small loculated right lateral pleural effusion. 3. Stable trace left pleural effusion with developing left lung base airspace disease which may reflect atelectasis. Garrett Ace MD Objective Remarks GENERAL: Patient is 57 yo lying in bed in NAD SKIN: Warm and dry. HEAD: Normocephalic. EYES: No scleral icterus. No injection or drainage. NECK: Supple, trachea midline. No JVD or lymphadenopathy. CARDIOVASCULAR: Regular rate and rhythm without murmurs, gallops, or rubs. RESPIRATORY: Breath sounds equal bilaterally. No accessory muscle use. GASTROINTESTINAL: Abdomen soft, non-tender, nondistended. MUSCULOSKELETAL: No cyanosis, or edema. Neuro: Awake and alert. oriented. No focal deficits. A/P Assessment and Plan 1. Hyperkalemia 2.. End-stage renal disease. 3. Lactic acidemia- resolved 5. Leukocytosis. 6. Loculated pleural effusions 7. Anemia of chronic disease. 8. Gastroesophageal reflux disease. 9. Hypertension. 10. History of breast CA, status post chemo and radiation therapy. Plan Neuro: Monitor neuro status and avoid any sedatives. CT brain 07/31: No acute process Pulm: Wean down oxygen and maintain sats >92%. Bronchodilators CT chest: Increase in partially loculated left pleural effusion since December 2016 with slight increase in atelectasis and consolidation as well. Small to moderate loculated right pleural effusion remains with extensive pleural thickening that is similar to prior exam. Chest x-ray today remains unchanged from admission. Patient had previous pleurodesis done most likely for chronic effusion on 01/2017 No further intervention needed at this time as the patient is breathing comfortably, asymptomatic. Need pulmonary consult as OP CV: Monitor HR and BP and maintain MAP > 65 mmHg. On Lopressor 25 mg b.i.d., Norvasc 5 mg b.i.d. Lactic acid cleared : Monitor renal function, I's and O's and avoid nephrotoxins. s/p HD emergent las two days. Renal is following-Dr. Ernst GI: on Pepcid for GI prophylaxis. Monitor LFTs. Renal diet CT abd/pelvis: Mild ileus no signs obstruction. ID: Continue abx( Zosyn, vancomycin, azithromycin). DC Vanc today Monitor for signs of infection( fever and WBC). Follow up on blood cultures. F/U sputum culture with Gram stain. Endo: SSI with Accu-Cheks to maintain euglycemia. Heme: Monitor CBC and coags. On Epogen with hemodialysis. GI prophylaxis with Pepcid and DVT prophylaxis with SCDs/heparin SQ Level 2 Consult [facility] to assume care in am 08/03/17. Transfer to Med/Surg Rogelio Acosta MD Aug 02, 2017 14:29
[2017-08-02] MEDS ORDERED: RESP: ALBUTEROL 2.5 MG/IPRATROPIUM 0.5 MG NEB (PRN) NEB (15:15)
[2017-08-02] MEDS: RESP: ALBUTEROL 2.5 MG/IPRATROPIUM 0.5 MG NEB (SCH) NEB ×2 (16:00→21:14)
[2017-08-02] MEDS ORDERED: HEPARIN SODIUM - IV 10,000 UNITS/10 ML VIAL XX PRN (16:00)
[2017-08-02] MEDS ORDERED: EPOETIN ALFA 20,000 UNITS/ML VIAL SQ ONE (16:00)
[2017-08-02] MEDS ORDERED: SODIUM CHLORIDE 0.9% FLUSH 10 ML FLUSH IV FLUSH PRN (16:00)
[2017-08-02] MEDS: SEVELAMER CARBONATE 800 MG TAB PO SCH (16:29)
[2017-08-02] MEDS: AZITHROMYCIN INJ 500 MG in SODIUM CHLOR 0.9% 250 ML INJ 250 ML IV SCH (16:29)
[2017-08-02] MEDS: guaiFENesin E.R. 600 MG TAB PO SCH (20:48)
[2017-08-03] VITALS (8 sets, daily range): BP systolic 125–142; BP diastolic 64–76; PULSE 78–88; RESP 16–20; TEMP 97.5–98; O2SAT 92–98
[2017-08-03] MEDS: PIPERACIL-TAZO 2.25 GM PREMIX 50 ML IV SCH ×3 (02:47→18:00)
[2017-08-03] MEDS: INSULIN NovoLIN REGULAR SUPPLEMENTAL SCALE SQ SCH (06:00)
[2017-08-03 07:01] LABS: AUTOMATED NEUTROPHIL # 5.9 TH/MM3 (1.8-7.7); BASOPHIL # 0.1 TH/MM3 (0-0.2); BASOPHIL % 0.9 % (0.0-2.0); EOSINOPHIL # 0.8 TH/MM3 (0-0.4); EOSINOPHIL % 9.9 % (0.0-4.0); HEMATOCRIT 33.9 % (35.0-46.0); HEMOGLOBIN 10.4 GM/DL (11.6-15.3); LYMPH % 9.7 % (9.0-44.0); LYMPHOCYTE # 0.8 TH/MM3 (1.0-4.8); MEAN CELL VOLUME 71.5 FL (80.0-100.0); MEAN CORPUSCULAR HEMOGLOBIN 22.1 PG (27.0-34.0); MEAN CORPUSCULAR HGB CONC 30.9 % (32.0-36.0); MEAN PLATELET VOLUME 9.5 FL (7.0-11.0); MONO % 9.5 % (0.0-8.0); MONOCYTE # 0.8 TH/MM3 (0-0.9); PLATELET COUNT 274 TH/MM3 (150-450); RED BLOOD COUNT 4.74 MIL/MM3 (4.00-5.30); RED CELL DISTRIBUTION WIDTH 29.7 % (11.6-17.2); WHITE BLOOD COUNT 8.5 TH/MM3 (4.0-11.0)
[2017-08-03 07:14] LABS: ALBUMIN 2.4 GM/DL (3.4-5.0); AST (GOT) 18 U/L (15-37); BICARBONATE 28.5 MEQ/L (21.0-32.0); BLOOD UREA NITROGEN 30 MG/DL (7-18); CALCIUM 8.2 MG/DL (8.5-10.1); CHLORIDE 96 MEQ/L (98-107); CREATININE 7.32 MG/DL (0.50-1.00); GLOMERULAR FILTRATION RATE 7 ML/MIN (>89); GLUCOSE,RANDOM 78 MG/DL (74-106); MAGNESIUM 2.2 MG/DL (1.5-2.5); SODIUM (NA) 136 MEQ/L (136-145)
[2017-08-03 07:22] LABS: ALKALINE PHOSPHATASE 79 U/L (45-117); ALT (GPT) 28 U/L (10-53); FREE T4 1.37 NG/DL (0.76-1.46); PHOSPHORUS 5.3 MG/DL (2.5-4.9); RANDOM VANCOMYCIN 23.1 COMMENT; TOTAL BILIRUBIN ADULT 0.5 MG/DL (0.2-1.0); TOTAL PROTEIN 6.8 GM/DL (6.4-8.2)
[2017-08-03] MEDS: amLODIPine BESYLATE 5 MG TAB PO SCH (07:47)
[2017-08-03] MEDS: HEPARIN SODIUM - SQ 10,000 UNITS/ML VIAL SQ SCH ×2 (07:48→20:42)
[2017-08-03] MEDS: SEVELAMER CARBONATE 800 MG TAB PO SCH ×3 (07:49→17:56)
[2017-08-03] MEDS: METOPROLOL TARTRATE 25 MG TAB PO SCH ×2 (07:49→20:41)
[2017-08-03] MEDS: FAMOTIDINE 20 MG TAB PO SCH ×2 (07:57→20:42)
[2017-08-03] MEDS: guaiFENesin E.R. 600 MG TAB PO SCH ×2 (07:57→20:42)
[2017-08-03] MEDS: CALCITRIOL 0.25 MCG CAP PO SCH (09:00)
--- NOTE | 2017-08-03 12:17 | HHI.PR ---
Subjective Remarks Patient seen this morning. She denies any pain. Denies any nausea or vomiting. Says she feels generally weak Objective Vital Signs Date Time Temp Pulse Resp B/P (MAP) Pulse Ox O2 Delivery O2 Flow Rate FiO2 08/03/17 08:07 96 21 08/03/17 08:00 97.7 79 20 125/64 (84) 95 08/03/17 04:02 97.7 88 16 142/76 (98) 92 08/03/17 04:00 97.6 82 16 135/67 (89) 98 08/02/17 22:58 Room Air 08/02/17 22:00 77 08/02/17 20:00 76 08/02/17 20:00 97.7 76 24 132/64 (86) 100 08/02/17 19:00 Room Air 08/02/17 18:00 77 08/02/17 16:00 75 08/02/17 16:00 95 21 08/02/17 16:00 97.5 75 26 113/66 (82) 08/02/17 14:00 79 I/O 08/02/17 08/02/17 08/02/17 08/03/17 08/03/17 08/03/17 07:00 15:00 23:00 07:00 15:00 23:00 Intake Total 480 ml 600 ml 50 ml Output Total 0 ml 0 ml 1331 ml Balance 480 ml 600 ml 50 ml -1331 ml Intake Oral 480 ml 600 ml IV Total 50 ml Output Urine Total 0 ml 0 ml Stool Total 0 ml Peritoneal Fluid 1331 ml Result Diagram: 08/03/17 0557 08/03/17 0557 Objective Remarks GENERAL: Lying in bed. Appears comfortable. SKIN: Warm and dry. HEAD: Normocephalic. EYES: No scleral icterus. No injection or drainage. NECK: Supple, trachea midline. No JVD. CARDIOVASCULAR: Regular rate and rhythm without murmurs, gallops, or rubs. RESPIRATORY: Breath sounds equal bilaterally. No accessory muscle use. GASTROINTESTINAL: Abdomen soft, non-tender, nondistended. MUSCULOSKELETAL: No cyanosis, or edema. BACK: Nontender without obvious deformity. No CVA tenderness. A/P Assessment and Plan // End-stage renal disease. = s/p HD emergent = Now back on peritoneal dialysis Renal is following-Dr. Ernst //SIRS criteria on admission. -Leukocytosis, tachypnea improved with antibiotics. Certainly leukocytosis could have been secondary to stress from fluid overload, however I discussed with nephrology, will obtain sample of peritoneal fluid to rule out bacterial peritonitis. Continue antibiotics for now. Plan discontinue if peritoneal fluid clean. // Loculated pleural effusions //Community-acquired pneumonia CT chest: Increase in partially loculated left pleural effusion since December 2016 with slight increase in atelectasis and consolidation as well. Small to moderate loculated right pleural effusion remains with extensive pleural thickening that is similar to prior exam. Chest x-ray today remains unchanged from admission. Patient had previous pleurodesis done most likely for chronic effusion on 01/2017 No further intervention needed at this time as the patient is breathing comfortably, asymptomatic. = We will continue antibiotics for community-acquired pneumonia. Need pulmonary consult as OP // Anemia of chronic disease.. Hemoglobin stable 10.4. //Gastroesophageal reflux disease. //Hypertension. On Lopressor 25 mg b.i.d., Norvasc 5 mg b.i.d. //Lactic acidemia- resolved //Hyperkalemia = Resolved. As per nephrology // History of breast CA, status post chemo and radiation therapy. Discharge Planning Pending PT and OT evaluation, as well as nephrology clearance Will need antibiotics to complete treatment course Hopefully can do peritoneal dialysis at home. Joaquim Emerson MD Aug 03, 2017 12:17
--- NOTE | 2017-08-03 14:11 | HHI.NPPN ---
Subjective History of Present Illness This is a 57-year-old female known to me for past medical history of hypertension, history of breast cancer, chronic anemia, end-stage renal disease , currently on peritoneal dialysis, was brought to the hospital with complaint of worsening shortness of breath.Nephrology is consulted to see the patient because of management of dialysis and very high potassium. She came with a potassium of 7.2. Also, it was found that her creatinine was very high, it was 16.1 when she came in here. She previously had creatinine of 628. The patient is confused and not able to give much history, but seems like she has been missing her dialysis. She has worsening respiratory failure for the last 2 or3 days and was not able to talk when she came in, now currently she is on dialysis and her blood pressure is on the higher side and she is able to answer some of the simple questions. Additional Remarks Patient is resting comfortably. Denies any SOB. PD last night. (Ariela Snider) Review of Systems General Constitutional: Fatigue (Ariela Snider) Respiratory Respiratory Remarks Denies any SOB (Ariela Snider) Cardiovascular Cardiac Remarks denies CP (Ariela Snider) Gastrointestinal GI Remarks Denies Abdominal pain (Ariela Snider) Objective Data Data 08/03/17 08/04/17 19:00 07:00 Output Total 1331 ml Balance -1331 ml Peritoneal Fluid 1331 ml Vital Signs Date Time Temp Pulse Resp B/P (MAP) Pulse Ox O2 Delivery O2 Flow Rate FiO2 08/03/17 12:00 98.0 80 20 139/70 (93) 97 08/03/17 08:07 96 21 08/03/17 08:00 97.7 79 20 125/64 (84) 95 08/03/17 04:02 97.7 88 16 142/76 (98) 92 08/03/17 04:00 97.6 82 16 135/67 (89) 98 08/02/17 22:58 Room Air 08/02/17 22:00 77 08/02/17 20:00 76 08/02/17 20:00 97.7 76 24 132/64 (86) 100 08/02/17 19:00 Room Air 08/02/17 18:00 77 08/02/17 16:00 75 08/02/17 16:00 95 21 08/02/17 16:00 97.5 75 26 113/66 (82) (Ariela Snider) -: 08/03/17 0557 08/03/17 0557 Imaging Last Impressions Chest X-Ray 08/02/17 0600 Signed Impressions: Service Date/Time: Wednesday, August 02, 2017 03:03 - CONCLUSION: Stable consolidative infiltrates in the medial and lower right lung and retrocardiac left lower lung and stable right pleural effusion. Lawrence Lynn MD Head CT 07/31/17 1543 Signed Impressions: Service Date/Time: Monday, July 31, 2017 19:34 - CONCLUSION: Normal examination for a patient of this age. Gideon Jolly MD Chest CT 07/31/17 1543 Signed Impressions: Service Date/Time: Monday, July 31, 2017 19:34 - CONCLUSION: 1. Increase in partially loculated left pleural effusion since December 2016 with slight increase in atelectasis and consolidation as well. Groundglass opacity in the lungs may represent mild pulmonary edema. 2. Interval resolution of right pneumothorax. Small to moderate loculated right pleural effusion remains with extensive pleural thickening that is similar to prior exam. 3. Cardiomegaly. Gideon Jolly MD Abdomen/Pelvis CT 07/31/17 1543 Signed Impressions: Service Date/Time: Monday, July 31, 2017 19:34 - CONCLUSION: 1. Moderate-sized bilateral loculated pleural effusions at the lung bases with pleural thickening and adjacent atelectasis and consolidation. 2. Cardiomegaly. 3. Mild to moderate ascites. 4. Markedly atrophic [place] kidneys. Peritoneal dialysis catheter present. 5. Mild ileus. No evidence for obstruction. Gideon Jolly MD (Ariela Snider) Physical Exam General Appearance: No Acute Distress, Comfortable (Ariela Snider) Throat Throat Exam: Oral Mucosa [place] & Moist (Ariela Snider) Pulmonary Resp Exam: Clear Bilaterally, Decreased Bases (Ariela Snider) Cardiology CV Exam: Regular (Ariela Snider) Gastrointestinal/Abdomen GI Exam: Soft, Non-Tender, Bowel Sounds Present (Ariela Snider) Genitourinary Exam: Flank Non-Tender (Ariela Snider) Integumentary Skin Exam: Clear, Warm (Ariela Snider) Extremeties Extremities Exam: No Edema (Ariela Snider) Neurologic Neuro Exam: Alert, Awake (Ariela Snider) Assessment/Plan Discussed Condition With: Patient Assessment Summary: Anemia of CKD, End Stage Renal Disease Electrolyte Assessment: Hypocalcemia Problem List: (1) ESRD (end stage renal disease) on dialysis ICD Codes: N18.6 - End stage renal disease; Z99.2 - Dependence on renal dialysis Plan: ESRD on PD. On admission had a very high BUN, creatinine, and potassium. Also metabolic acidosis. Most likely she has been missing some of her peritoneal dialysis treatment. Had two HD and now PD resumed Calcitrol resumed for hypocalcemia. Renvela resumed. PD nightly (2) Hypertension ICD Codes: I10 - Essential (primary) hypertension Status: Acute Plan: Well controlled (Ariela Snider) Problem List: (1) ESRD (end stage renal disease) on dialysis ICD Codes: N18.6 - End stage renal disease; Z99.2 - Dependence on renal dialysis Plan: ESRD on PD. On admission had a very high BUN, creatinine, and potassium. Also metabolic acidosis. Most likely she has been missing some of her peritoneal dialysis treatment. Had two HD and now PD resumed Calcitrol resumed for hypocalcemia. Renvela resumed. PD nightly, Patient seen and examined, agree with above. will send PD cell count in AM. (2) Hypertension ICD Codes: I10 - Essential (primary) hypertension Status: Acute Plan: Well controlled (Brina Ernst MD) Ariela Snider Aug 03, 2017 14:11 Brina Ernst MD Aug 03, 2017 21:50
[2017-08-03] MEDS: RESP: ALBUTEROL 2.5 MG/IPRATROPIUM 0.5 MG NEB (SCH) NEB ×2 (16:08→19:32)
[2017-08-03 16:54] LABS: HEMOGLOBIN A1C 4.5 % (4.3-6.0)
[2017-08-03] MEDS: AZITHROMYCIN INJ 500 MG in SODIUM CHLOR 0.9% 250 ML INJ 250 ML IV SCH (17:56)
[2017-08-04] VITALS: BP 118/58; PULSE 85; RESP 18; TEMP 98.2; O2SAT 94
[2017-08-04] MEDS: PIPERACIL-TAZO 2.25 GM PREMIX 50 ML IV SCH ×2 (01:16→11:50)
[2017-08-04] MEDS: CALCITRIOL 0.25 MCG CAP PO SCH (07:59)
[2017-08-04] MEDS: METOPROLOL TARTRATE 25 MG TAB PO SCH (07:59)
[2017-08-04 08:00] VITALS: BP 140/73; PULSE 84; RESP 16; TEMP 98.1; O2SAT 100
[2017-08-04] MEDS: amLODIPine BESYLATE 5 MG TAB PO SCH (08:00)
[2017-08-04] MEDS: HEPARIN SODIUM - SQ 10,000 UNITS/ML VIAL SQ SCH (08:00)
[2017-08-04] MEDS: guaiFENesin E.R. 600 MG TAB PO SCH (08:03)
[2017-08-04] MEDS: FAMOTIDINE 20 MG TAB PO SCH (08:04)
[2017-08-04] MEDS: RESP: ALBUTEROL 2.5 MG/IPRATROPIUM 0.5 MG NEB (SCH) NEB ×2 (08:23→14:00)
[2017-08-04 08:25] VITALS: O2SAT 100
[2017-08-04] MEDS ORDERED: WALKER WHEELS/F1 MIS (08:55)
--- NOTE | 2017-08-04 08:57 | HHI.FF ---
Face to Face Verification Diagnosis: (1) ESRD (end stage renal disease) on dialysis (2) Generalized weakness Physical Therapy Order: Evaluate and Treat Home Health Nursing Order: Nursing assessment with vital signs Instructions: Nursing to assit with peritoneal dialysis compliance I have seen patient Barb Garvin on 08/04/17. My clinical findings support the need for the requested home health care services because: Med compliance is questionable Limited ability to care for self I certify that my clinical findings support that this patient is homebound because: Unsafe to leave home unassisted Joaquim Emerson MD Aug 04, 2017 08:57
--- NOTE | 2017-08-04 11:06 | HHI.NPPN ---
Subjective History of Present Illness This is a 57-year-old female known to me for past medical history of hypertension, history of breast cancer, chronic anemia, end-stage renal disease , currently on peritoneal dialysis, was brought to the hospital with complaint of worsening shortness of breath.Nephrology is consulted to see the patient because of management of dialysis and very high potassium. She came with a potassium of 7.2. Also, it was found that her creatinine was very high, it was 16.1 when she came in here. She previously had creatinine of 628. The patient is confused and not able to give much history, but seems like she has been missing her dialysis. She has worsening respiratory failure for the last 2 or3 days and was not able to talk when she came in, now currently she is on dialysis and her blood pressure is on the higher side and she is able to answer some of the simple questions. Additional Remarks Patient is resting comfortably. PD last night. No complaints. (Ariela Snider) Review of Systems Respiratory Respiratory Remarks Denies any SOB (Ariela Snider) Cardiovascular Cardiac Remarks denies CP (Ariela Snider) Gastrointestinal GI Remarks Denies Abdominal pain (Ariela Snider) Objective Data Data 08/04/17 08/05/17 19:00 07:00 Output Total 942 ml Balance -942 ml Hemodialysis 942 ml Vital Signs Date Time Temp Pulse Resp B/P (MAP) Pulse Ox O2 Delivery O2 Flow Rate FiO2 08/04/17 08:25 100 Nasal Cannula 2.00 08/04/17 08:00 98.1 84 16 140/73 (95) 100 08/04/17 00:00 98.2 85 18 118/58 (78) 94 08/03/17 20:00 97.8 78 20 135/75 (95) 95 08/03/17 19:33 96 08/03/17 16:00 97.5 80 20 125/68 (87) 95 08/03/17 12:00 98.0 80 20 139/70 (93) 97 (Ariela Snider) -: 08/03/17 0557 08/03/17 0557 Microbiology 08/04/17 Influenza Types A,B Antigen (MILAGROS) - Final, Complete NEGATIVE FOR FLU A AND B ANTIGEN.... (Ariela Snider) Physical Exam General Appearance: No Acute Distress, Comfortable (Ariela Snider) Throat Throat Exam: Oral Mucosa [place] & Moist (Ariela Snider) Pulmonary Resp Exam: Clear Bilaterally, Decreased Bases (Ariela Snider) Cardiology CV Exam: Regular (Ariela Snider) Gastrointestinal/Abdomen GI Exam: Soft, Non-Tender, Bowel Sounds Present GI Remarks PD catheter (Ariela Snider) Genitourinary Exam: Flank Non-Tender (Ariela Snider) Integumentary Skin Exam: Clear, Warm Skin Remarks left AVF positive thrill and bruit. (Ariela Snider) Extremeties Extremities Exam: No Edema (Ariela Snider) Neurologic Neuro Exam: Alert, Awake (Ariela Snider) Assessment/Plan Discussed Condition With: Patient Assessment Summary: Anemia of CKD, End Stage Renal Disease Electrolyte Assessment: Hypocalcemia Problem List: (1) ESRD (end stage renal disease) on dialysis ICD Codes: N18.6 - End stage renal disease; Z99.2 - Dependence on renal dialysis Plan: ESRD on PD. On admission had a very high BUN, creatinine, and potassium. Also metabolic acidosis. Most likely she has been missing some of her peritoneal dialysis treatment. Had two HD and now PD resumed Plan Continue Calcitrol Continue Renvela PD nightly (2) Hypertension ICD Codes: I10 - Essential (primary) hypertension Status: Acute Plan: Well controlled (Ariela Snider) Problem List: (1) ESRD (end stage renal disease) on dialysis ICD Codes: N18.6 - End stage renal disease; Z99.2 - Dependence on renal dialysis Plan: ESRD on PD. On admission had a very high BUN, creatinine, and potassium. Also metabolic acidosis. Most likely she has been missing some of her peritoneal dialysis treatment. Had two HD and now PD resumed Plan Continue Calcitrol Continue Renvela PD nightly. Patient seen and examined, agree with above. Patient for discharge, told to do PD regularly. Will follow as out patient and watch for adequacy fo dialysis. (2) Hypertension ICD Codes: I10 - Essential (primary) hypertension Status: Acute Plan: Well controlled (Brina Ernst MD) Ariela Snider Aug 04, 2017 11:06 Brina Ernst MD Aug 07, 2017 19:22
[2017-08-04] MEDS: SEVELAMER CARBONATE 800 MG TAB PO SCH ×2 (11:49→11:50)
[2017-08-04 12:00] VITALS: BP 125/68; PULSE 97; RESP 15; TEMP 98.1; O2SAT 99
[2017-08-04] MEDS ORDERED: LEVA500T33 PO (13:39)
[2017-08-04] MEDS ORDERED: LEVOFLOXACIN 500 MG TAB PO ONE (14:00)
--- NOTE | 2017-08-04 14:04 | HHI.PR ---
Subjective Remarks Patient seen this morning. Says she feels well. Feels like going home. Denies any chest pain or shortness of breath. Denies any abdominal pain. Objective Vital Signs Date Time Temp Pulse Resp B/P (MAP) Pulse Ox O2 Delivery O2 Flow Rate FiO2 08/04/17 12:00 98.1 97 15 125/68 (87) 99 08/04/17 08:25 100 Nasal Cannula 2.00 08/04/17 08:00 98.1 84 16 140/73 (95) 100 08/04/17 00:00 98.2 85 18 118/58 (78) 94 08/03/17 20:00 97.8 78 20 135/75 (95) 95 08/03/17 19:33 96 08/03/17 16:00 97.5 80 20 125/68 (87) 95 I/O 08/03/17 08/03/17 08/03/17 08/04/17 08/04/17 08/04/17 07:00 15:00 23:00 07:00 15:00 23:00 Intake Total 50 ml 480 ml 170 ml Output Total 1331 ml 942 ml Balance 50 ml -1331 ml 480 ml 170 ml -942 ml Intake Oral 480 ml 120 ml IV Total 50 ml 50 ml Peritoneal Fluid 1331 ml Hemodialysis 942 ml # Voids 0 0 # Bowel Movements 0 0 Result Diagram: 08/03/17 0557 08/03/17 0557 Objective Remarks GENERAL: Lying in bed. Appears comfortable. SKIN: Warm and dry. HEAD: Normocephalic. EYES: No scleral icterus. No injection or drainage. NECK: Supple, trachea midline. No JVD. CARDIOVASCULAR: Regular rate and rhythm without murmurs, gallops, or rubs. RESPIRATORY: Breath sounds equal bilaterally. No accessory muscle use. GASTROINTESTINAL: Abdomen soft, non-tender, nondistended. MUSCULOSKELETAL: No cyanosis, or edema. BACK: Nontender without obvious deformity. No CVA tenderness. A/P Assessment and Plan // End-stage renal disease. = s/p HD emergent = Now back on peritoneal dialysis Renal is following-Dr. Conteh = Discussed with Dr. conteh. Peritoneal fluid was clear. Recommends continue Levaquin to complete treatment course. Follow-up with nephrology as outpatient //SIRS criteria on admission. -Leukocytosis, tachypnea improved with antibiotics. Certainly leukocytosis could have been secondary to stress from fluid overload, however I discussed with nephrology, will obtain sample of peritoneal fluid to rule out bacterial peritonitis. Continue antibiotics for now. Plan discontinue if peritoneal fluid clean. // Loculated pleural effusions //Community-acquired pneumonia CT chest: Increase in partially loculated left pleural effusion since December 2016 with slight increase in atelectasis and consolidation as well. Small to moderate loculated right pleural effusion remains with extensive pleural thickening that is similar to prior exam. Chest x-ray today remains unchanged from admission. Patient had previous pleurodesis done most likely for chronic effusion on 01/2017 No further intervention needed at this time as the patient is breathing comfortably, asymptomatic. = We will continue antibiotics for community-acquired pneumonia. Need pulmonary consult as OP // Anemia of chronic disease.. Hemoglobin stable 10.4. //Gastroesophageal reflux disease. //Hypertension. On Lopressor 25 mg b.i.d., Norvasc 5 mg b.i.d. //Lactic acidemia- resolved //Hyperkalemia = Resolved. As per nephrology // History of breast CA, status post chemo and radiation therapy. Discharge Planning Discharge home with home health. [place] to complete treatment course peritoneal dialysis at home. Joaquim Emerson MD Aug 04, 2017 14:04
--- NOTE | 2017-08-04 14:05 | HHI.DS ---
Discharge Summary Admission Date Jul 31, 2017 at 15:46 Discharge Date: Aug 04, 2017 Admitting Diagnosis Acute on chronic kidney failure/hyperkalemia/right pleural effusion (1) ESRD (end stage renal disease) on dialysis ICD Code: N18.6 - End stage renal disease; Z99.2 - Dependence on renal dialysis (2) Acute respiratory failure ICD Code: J96.00 - Acute respiratory failure, unspecified whether with hypoxia or hypercapnia Procedures patient underwent dialysis. No invasive procedures. Brief History - From Admission Patient is a 57-year-old female with past medical history of hypertension, end- stage renal disease, on peritoneal dialysis, anemia of chronic disease, GERD and breast cancer, who presented to [facility] ED by EMS with complaints of shortness of breath for several days, worse with exertion. On arrival to the ED, she was tachycardic and hypertensive with a systolic blood pressure in the 170s. Her laboratory data is significant for hyperkalemia with a potassium level of 7.2, creatinine 16.1 and lactic acidosis with a lactic acid level of 4.6. Also, she was found to have leukocytosis with a WBC of 16. The patient is afebrile. Chest x-ray in the ED showed stable airspace consolidation with some volume loss in the right lung, a small loculated right lateral pleural effusion, airspace disease in the left lung base. In the ED, she was treated for hyperkalemia with 10 units of IV insulin given along with calcium, D50, sodium bicarbonate, Kayexalate. Also, she received cefepime and azithromycin. Dr. Ernst was notified from nephrology service and the patient was taken emergently to the dialysis suite to undergo hemodialysis. According to ED records, patient had peritoneal dialysis last night. Most of the history was obtained from reviewing medical records as patient is a poor historian. She had an ABG performed on 8 L simple mask, which showed a pH of 7.33, CO2 of 41, PaO2 of 75, bicarbonate 21, and saturation of 90%. She was seen in the dialysis suite where she is receiving hemodialysis. Her current blood pressure is 124/94 with a pulse of 72 and saturation 100% on 8 L simple mask. 08/01: Patient s/p HD yesterday with removal 4L. Currently receiving another HD treatment. K:4.6 this morning with Lactic acid level 1.3. Awake, alert. Afebrile. 08/02: Breathing comfortably getting ready to eat lunch. Chest x-ray remains unchanged from admission. Right lung consolidation/atelectasis and volume loss appears chronic. (Had pleurodesis done 01/24/17) CBC/BMP: 08/03/17 0557 08/03/17 0557 Significant Findings Laboratory Tests Test 08/02/17 07:05 08/03/17 05:57 Hemoglobin 9.9 GM/DL (11.6-15.3) 10.4 GM/DL (11.6-15.3) Hematocrit 31.8 % (35.0-46.0) 33.9 % (35.0-46.0) Mean Corpuscular Volume 71.7 FL (80.0-100.0) 71.5 FL (80.0-100.0) Mean Corpuscular Hemoglobin 22.4 PG (27.0-34.0) 22.1 PG (27.0-34.0) Mean Corpuscular Hemoglobin Concent 31.3 % (32.0-36.0) 30.9 % (32.0-36.0) Red Cell Distribution Width 28.6 % (11.6-17.2) 29.7 % (11.6-17.2) Neutrophils (%) (Auto) 75.0 % (16.0-70.0) Lymphocytes (%) (Auto) 8.6 % (9.0-44.0) Monocytes (%) (Auto) 10.8 % (0.0-8.0) 9.5 % (0.0-8.0) Eosinophils (%) (Auto) 4.6 % (0.0-4.0) 9.9 % (0.0-4.0) Lymphocytes # (Auto) 0.9 TH/MM3 (1.0-4.8) 0.8 TH/MM3 (1.0-4.8) Monocytes # (Auto) 1.1 TH/MM3 (0-0.9) Eosinophils # (Auto) 0.5 TH/MM3 (0-0.4) 0.8 TH/MM3 (0-0.4) Tear Drop Cells 1+ (NORMAL) Ovalocytes 1+ (NORMAL) Keratocytes 1+ (NORMAL) Blood Urea Nitrogen 36 MG/DL (7-18) 30 MG/DL (7-18) Creatinine 7.21 MG/DL (0.50-1.00) 7.32 MG/DL (0.50-1.00) Calcium Level 7.8 MG/DL (8.5-10.1) 8.2 MG/DL (8.5-10.1) Chloride Level 96 MEQ/L (98-107) 96 MEQ/L (98-107) Estimat Glomerular Filtration Rate 7 ML/MIN (>89) 7 ML/MIN (>89) Albumin 2.4 GM/DL (3.4-5.0) Phosphorus Level 5.3 MG/DL (2.5-4.9) Imaging Last Impressions Chest X-Ray 08/02/17 0600 Signed Impressions: Service Date/Time: Wednesday, August 02, 2017 03:03 - CONCLUSION: Stable consolidative infiltrates in the medial and lower right lung and retrocardiac left lower lung and stable right pleural effusion. Lawrence Lynn MD Head CT 07/31/17 626 Signed Impressions: Service Date/Time: Monday, July 31, 2017 19:34 - CONCLUSION: Normal examination for a patient of this age. Gideon Jolly MD Chest CT 07/31/17 3576 Signed Impressions: Service Date/Time: Monday, July 31, 2017 19:34 - CONCLUSION: 1. Increase in partially loculated left pleural effusion since December 2016 with slight increase in atelectasis and consolidation as well. Groundglass opacity in the lungs may represent mild pulmonary edema. 2. Interval resolution of right pneumothorax. Small to moderate loculated right pleural effusion remains with extensive pleural thickening that is similar to prior exam. 3. Cardiomegaly. Gideon Jolly MD Abdomen/Pelvis CT 07/31/17 5058 Signed Impressions: Service Date/Time: Monday, July 31, 2017 19:34 - CONCLUSION: 1. Moderate-sized bilateral loculated pleural effusions at the lung bases with pleural thickening and adjacent atelectasis and consolidation. 2. Cardiomegaly. 3. Mild to moderate ascites. 4. Markedly atrophic [place] kidneys. Peritoneal dialysis catheter present. 5. Mild ileus. No evidence for obstruction. Gideon Jolly MD Hospital Course Patient presented with presented with acute respiratory failure secondary to fluid overload. Chills presented with sepsis with leukocytosis of 16.2, tachypnea and tachycardia. Chest x-ray showed possible community-acquired pneumonia as above, however patient with baseline abnormalities on chest x-ray. Nephrology was consulted. Patient underwent 2 rounds of hemodialysis with resolution in shortness of breath. Patient went back on peritoneal dialysis and remained stable. Stressed compliance with peritoneal dialysis at home. Per discussion with nephrology, peritoneal fluid appears clear and no concern for peritoneal infection. Patient will follow-up with nephrology as outpatient. Continue on peritoneal dialysis. She agrees not to skip. Patient will continue on Levaquin to complete treatment course for community- acquired pneumonia. She will need repeat chest x-ray in 2 weeks as outpatient For problem-based summary from most recent progress note, please see below // End-stage renal disease. = s/p HD emergent = Now back on peritoneal dialysis Renal is following-Dr. Ernst = Discussed with Dr. ernst. Peritoneal fluid was clear. Recommends continue Levaquin to complete treatment course. Follow-up with nephrology as outpatient //SIRS criteria on admission. -Leukocytosis, tachypnea improved with antibiotics. Certainly leukocytosis could have been secondary to stress from fluid overload, however I discussed with nephrology, will obtain sample of peritoneal fluid to rule out bacterial peritonitis. Continue antibiotics for now. Plan discontinue if peritoneal fluid clean. // Loculated pleural effusions //Community-acquired pneumonia CT chest: Increase in partially loculated left pleural effusion since December 2016 with slight increase in atelectasis and consolidation as well. Small to moderate loculated right pleural effusion remains with extensive pleural thickening that is similar to prior exam. Chest x-ray today remains unchanged from admission. Patient had previous pleurodesis done most likely for chronic effusion on 01/2017 No further intervention needed at this time as the patient is breathing comfortably, asymptomatic. = We will continue antibiotics for community-acquired pneumonia. Need pulmonary consult as OP // Anemia of chronic disease.. Hemoglobin stable 10.4. //Gastroesophageal reflux disease. //Hypertension. On Lopressor 25 mg b.i.d., Norvasc 5 mg b.i.d. //Lactic acidemia- resolved //Hyperkalemia = Resolved. As per nephrology // History of breast CA, status post chemo and radiation therapy. Discharge Planning Discharge home with home health. [place] to complete treatment course peritoneal dialysis at home. Pt Condition on Discharge: Good Discharge Disposition: Disch w/ Home Health Serv Discharge Time: > 30 minutes Discharge Instructions DIET: Follow Instructions for: Renal Failure Diet Activities you can perform: Regular-No Restrictions Follow up Referrals: PCP Follow-up - 3-5 Days with Brina Ernst MD Pulmonology - 1 Week New Medications: Levofloxacin (Levaquin) 500 Mg Tablet 500 MG PO EVERY OTHER DAY for Infection, #10 TAB 0 Refills Walker with Front Wheels (Walker with Front Wheels) 1 Mis Mis EA .XX DIRECTED, #1 0 Refills Continued Medications: Amlodipine (Amlodipine) 5 Mg Tab 5 MG PO BID for Blood Pressure Management, #30 TAB 0 Refills Calcitriol (Rocaltrol) 0.5 Mcg Cap 0.5 MCG PO 3 TIMES A WEEK @1700 for Calcium Supplement, #30 CAP 0 Refills Hydrocodone-Acetaminophen (Hydrocodone-Acetaminophen) 10-325 mg Tab 1 TAB PO Q6H PRN for PAIN SCALE 5 TO 10, #30 TAB Ipratropium-Albuterol Neb (Duoneb) 0.5-2.5 Mg/3 Ml Neb 1 AMPULE NEB Q8HR NEB PRN for DYSPNEA, #90 ML Lisinopril (Lisinopril) 5 Mg Tab 5 MG PO BID for Blood Pressure Management, #30 TAB 0 Refills Metoprolol Tartrate (Metoprolol Tartrate) 25 Mg Tab 25 MG PO BID, #60 TAB 0 Refills Sevelamer Carbonate (Renvela) 800 Mg Tab 1600 MG PO TIDAC for Control phosphorous levels, #180 TAB 0 Refills Vitamin B Cmplx/Vit C/Folic AC (Nephro-Brenden Rx) 1 Tab 1 TAB PO DAILY, TAB Discontinued Medications: Carvedilol (Carvedilol) 25 Mg Tab 25 MG PO BID, #60 TAB 0 Refills Nebivolol (Bystolic) 10 Mg Tab 10 MG PO DAILY for Blood Pressure Management, #30 TAB 0 Refills Potassium Chloride ER (Potassium Chloride ER) 20 Meq Tab 20 MEQ PO DAILY for Electrolyte Replacement, #30 TAB 0 Refills Joaquim Emerson MD Aug 04, 2017 14:05
== END 2017-08-04 15:37 | disposition home health service (06) | DRG 193 ==
LOC: NEPE 13:30 → NEDA 15:46 → HIMN 20:55 → N06A 08-02 22:48
PROVIDERS: ADMIT Internal Medicine; ATTEND Internal Medicine
PROC: 5A1D70Z Performance of Urinary Filtration, Intermittent, Less than 6 Hours Per Day (ICD-10-PCS; principal; 2017-07-31)
DX: J18.9 Pneumonia, unspecified organism (principal); J96.00 Acute respiratory failure, unspecified whether with hypoxia or hypercapnia; N18.6 End stage renal disease; J90 Pleural effusion, not elsewhere classified; I12.0 Hypertensive chronic kidney disease with stage 5 chronic kidney disease or end stage renal disease; E87.2 Acidosis; E87.1 Hypo-osmolality and hyponatremia; E87.5 Hyperkalemia; Z99.2 Dependence on renal dialysis; K21.9 Gastro-esophageal reflux disease without esophagitis; D63.1 Anemia in chronic kidney disease; Z85.3 Personal history of malignant neoplasm of breast; Z92.21 Personal history of antineoplastic chemotherapy; Z92.3 Personal history of irradiation
CPT/HCPCS: 36600; 70450; 71045; 71250; 74176; 80048; 80053; 80202; 82805; 82948; 83036; 83605; 83735; 83880; 84100; 84439; 84443; 85025; 85610; 85730; 87040; 87641; 87804; 90935; 93005; 94150; 94640; 94664; 96374; J0456; J1644; J2543; J3370; J7050; Q4081

== ENCOUNTER 2017-12-08 16:12 | Inpatient (IN) ==
--- NOTE | 2017-12-08 16:47 | ED ---
HPI General Chief Complaint: Shortness of Breath/Dyspnea Stated Complaint: respiratory Time Seen by Provider: 12/08/17 16:39 Source: patient Mode of arrival: ambulatory Limitations: no limitations History of Present Illness 57-year-old female patient with history of end-stage renal disease on dialysis, last had dialysis yesterday, apparently has history of pulmonary fusion has had chest tubes in the past, and has had 2 weeks history of dyspnea on exertion, has been told by her senior human resources representative to come in to get a chest x-ray. She has been having worsening dyspnea on exertion. She coughs especially with laying down. She denies any chest pains, fevers, or other symptoms. Related Data Home Medications Medication Instructions Recorded Confirmed B complex-vitamin C-folic acid 1 tab PO DAILY 12/08/17 12/08/17 [Nephro-Brenden] amlodipine [Norvasc] 5 mg PO DAILY 12/08/17 12/08/17 metoprolol tartrate 50 mg PO BID 12/08/17 12/08/17 sevelamer carbonate [Renvela] 2,400 mg PO DAILY 12/08/17 12/08/17 Allergies Allergy/AdvReac Type Severity Reaction Status Date / Time No Known Allergies Allergy Unknown Uncoded 07/31/17 16:04 Review of Systems Except as stated in HPI: all other systems reviewed are negative PMFSH History History Provided By: Patient Medical History Medical History Dialysis patient (Acute) Pleural effusion (Acute) Social History Social History Substance History: No History of Abuse Second Hand Smoke Exposure: No Smoking Status: Never smoker How Often Do You Have a Drink Containing Alcohol: Never Recent Travel in [facility] within the Last 8 Weeks: No Recent Out of Country Travel within the Last 8 Weeks: No Exam Narrative Exam Narrative: GENERAL: Well-developed middle-age female patient currently in mild respiratory distress. Awake and oriented 3. SKIN: Focused skin assessment warm/dry. HEAD: Atraumatic. Normocephalic. EYES: Pupils equal and round. No scleral icterus. No injection or drainage. ENT: No nasal bleeding or discharge. Mucous membranes pink and moist. NECK: Trachea midline. No JVD. CARDIOVASCULAR: Regular rate and rhythm. No murmur appreciated. RESPIRATORY: No accessory muscle use. Crackles and decreased at the bases bilaterally. Breath sounds equal bilaterally. GASTROINTESTINAL: Abdomen soft, non-tender, nondistended. Hepatic and splenic margins not palpable. MUSCULOSKELETAL: No obvious deformities. No clubbing. No cyanosis. No edema. NEUROLOGICAL: Awake and alert. No obvious cranial nerve deficits. Motor grossly within normal limits. Normal speech. PSYCHIATRIC: Appropriate mood and affect; insight and judgment normal. Course Hospital Course: Patient has significant pleural effusion on chest x-ray, case was discussed with radiology Dr. Wiggins who states that patient has had pleural effusion in the past, does not seem that this is worsened significantly although he suspect some underlying consolidation as well, suggested that we CAT scan her as well, states that he can drain the pleural effusion on Monday, tomorrow. Patient had her dialysis yesterday, lab work shows elevated BUN and creatinine but her potassium is within normal limits. She will need more fluid to be taken out at this point, symptomatic enough that she needs another dialysis, and at this point, plan would be to admit her for further treatment, dialysis as well as pleural effusion drainage. Case has been discussed with Dr. Emerson for admission. Initial Documented Vital Signs Temperature 98.3 F 12/08/17 16:23 Pulse Rate 73 12/08/17 16:23 Respiratory Rate 22 12/08/17 16:23 Blood Pressure 170/77 H 12/08/17 16:23 Pulse Oximetry 86 L 12/08/17 16:23 Last Documented Vital Signs Temperature 98.3 F 12/08/17 16:23 Pulse Rate 70 12/08/17 18:23 Respiratory Rate 18 12/08/17 18:23 Blood Pressure 179/84 H 12/08/17 18:23 Pulse Oximetry 97 12/08/17 18:23 Medical Decision Making Differential Diagnosis Differential Diagnosis: Pneumonia versus fluid overload versus pleural effusion Lab Data Result diagrams: 12/08/17 18:21 12/08/17 16:50 Lab Results 12/08/17 12/08/17 Range/Units 16:50 16:50 Sodium 135 L (136-145) meq/L Potassium 4.2 (3.5-5.1) meq/L Chloride 93 L (98-107) meq/L Carbon Dioxide 28.7 (21.0-32.0) meq/L Anion Gap 13 (5-15) meq/L BUN 77 H (7-18) mg/dL Creatinine 15.84 H* (0.50-1.00) mg/dL Estimated GFR 3 L (>89) mL/min Random Glucose 98 (74-106) mg/dL Calcium 9.3 (8.5-10.1) mg/dL Total Bilirubin 0.5 (0.2-1.0) mg/dL AST 33 (15-37) U/L ALT 34 (10-53) U/L Alkaline Phosphatase 162 H (45-117) U/L B-Natriuretic Peptide 1002 H (0-100) pg/mL Total Protein 8.7 H (6.4-8.2) g/dL Albumin 3.2 L (3.4-5.0) g/dL Imaging Data Radiologist's impression: Chest X-Ray 12/08/17 16:40 CONCLUSION: No significant change. Bilateral effusions and dense airspace disease remain. Chest CT 12/08/17 17:29 CONCLUSION: 1. Bilateral mild pleural effusions being larger on the left. The right effusion appears complex superiorly. There is some thickening of the pleural on the right side. 2. Areas of subpleural density seen in the lateral right upper lobe and right lower lobe. These could represent areas of consolidation, mass, or atelectasis. Round atelectasis is posterior with pleural disease could have a similar appearance. 3. Left lower lobe consolidation or atelectasis. 4. Cardiomegaly. There appears to be enlargement of all the chambers. Discharge Plan Discharge Disposition Patient Disposition: 30 Still Patient Discharge Condition Condition: Good Discharge Details Anticipated Discharge Date: 12/08/17 Diagnosis: Pleural effusion, Fluid overload, Dialysis patient Physicians Team ED Provider: Opal Sierra Primary Care Provider: Neftali Chisholm III Rxs /Orders / Referrals /Forms Prescriptions: No Action amlodipine [Norvasc] 5 mg Tablet 5 mg PO DAILY RF: 0 B complex-vitamin C-folic acid [Nephro-Brenden] 0.8 mg Tablet 1 tab PO DAILY RF: 0 metoprolol tartrate 25 mg Tablet 50 mg PO BID RF: 0 sevelamer carbonate [Renvela] 800 mg Tablet 2,400 mg PO DAILY RF: 0 Discharge Interventions Interventions: Vital Signs Last Done: 12/08/17 18:23 Status ED Status: With Doctor
--- NOTE | 2017-12-08 17:22 | XR ---
EXAM DATE: 12/08/2017 5:17 PM EDT AGE/SEX: 57 years / Female INDICATIONS: Shortness of breath. CLINICAL DATA: This is the patient's initial encounter. Patient reports that signs and symptoms have been present for 2 days and indicates a pain score of 0/10. MEDICAL/SURGICAL HISTORY: . Hypertension. Renal disease, end stage. Carcinoma, breast. None. [place] [facility] [place]. . FINDINGS: A single AP erect view of the chest was obtained and again demonstrates dense airspace disease in the right perihilar region and both lung bases. Both costophrenic angles remain blunted. The heart size appears moderately enlarged. The bony thorax is intact. CONCLUSION: No significant change. Bilateral effusions and dense airspace disease remain. Electronically signed by: Riccardo Sutton MD 12/08/2017 5:20 PM EDT
[2017-12-08 17:34] LABS: Alkaline Phosphatase 162 U/L (45-117); Total Protein 8.7 g/dL (6.4-8.2)
[2017-12-08 17:37] LABS: Alanine Aminotransferase 34 U/L (10-53); Albumin 3.2 g/dL (3.4-5.0); Anion Gap 13 meq/L (5-15); Aspartate Aminotransferase 33 U/L (15-37); Blood Urea Nitrogen 77 mg/dL (7-18); Calcium 9.3 mg/dL (8.5-10.1); Carbon Dioxide 28.7 meq/L (21.0-32.0); Chloride 93 meq/L (98-107); Glomerular Filtration Rate 3 mL/min (>89); Glucose,Random 98 mg/dL (74-106); Sodium 135 meq/L (136-145)
[2017-12-08 17:40] LABS: Potassium 4.2 meq/L (3.5-5.1)
--- NOTE | 2017-12-08 18:24 | CT ---
EXAM DATE: 12/08/2017 6:15 PM EDT AGE/SEX: 57 years / Female INDICATIONS: Shortness of breath. Evaluate for pleural effusion. CLINICAL DATA: This is the patient's initial encounter. Patient reports that signs and symptoms have been present for 1 day and indicates a pain score of 0/10. MEDICAL/SURGICAL HISTORY: Hypertension. Renal disease, end stage. Carcinoma, breast. None. RADIATION DOSE: 5.22 CTDI (mGy) COMPARISON: TLI, CT CHEST W/O CONTRAST, 12/21/2016. . TECHNIQUE: Multiple contiguous axial images were obtained through the chest without contrast. Image s were obtained in suspended respiration using multiple row detector helical technique. Using automa kate exposure control and adjustment of the mA and/or kV according to patient size, radiation dose was kept as low as reasonably achievable to obtain optimal diagnostic quality images. DICOM format imag e data is available electronically for review and comparison. FINDINGS: Lungs: There is increased density at the superior lateral right upper lung abutting the pleura. This area measures approximately 5.1 x 1.8 cm. There is subpleural density seen along the lateral right l ower lobe also. There is increased density seen at the posterior left lower lobe. The left upper lung is clear. Mediastinum: The heart size appears enlarged. Significant adenopathy is not clearly appreciated. Pleurae: There are mild bilateral pleural effusions being larger on the left. There is increased den sity within the superior aspect of the right effusion suggesting this is at least complex. There is t hickening of the pleura posteriorly on the right. Axillae: Unremarkable. Bony Structures: Unremarkable. Miscellaneous: The examination was extended to include the upper abdomen, and both adrenal glands ar e normal in size and configuration. CONCLUSION: 1. Bilateral mild pleural effusions being larger on the left. The right effusion appears complex sup eriorly. There is some thickening of the pleural on the right side. 2. Areas of subpleural density seen in the lateral right upper lobe and right lower lobe. These coul d represent areas of consolidation, mass, or atelectasis. Round atelectasis is posterior with pleural disease could have a similar appearance. 3. Left lower lobe consolidation or atelectasis. 4. Cardiomegaly. There appears to be enlargement of all the chambers. Electronically signed by: Dave Hong MD 12/08/2017 6:23 PM EDT
[2017-12-08 18:53] LABS: Baso # (Auto) 0.1 th/mm3 (0.0-0.2); Eos # (Auto) 0.6 th/mm3 (0.0-0.4); Eos % (Auto) 5.4 % (0.0-4.0); Hemoglobin 9.4 gm/dL (11.6-15.3); Lymph # (Auto) 0.7 th/mm3 (1.0-4.8); Lymph % (Auto) 6.3 % (9.0-44.0); Mean Corpuscular HGB Conc 31.3 % (32.0-36.0); Mean Corpuscular Hemoglobin 23.4 pg (27.0-34.0); Mean Corpuscular Volume 74.5 fL (80.0-100.0); Mean Platelet Volume 9.2 fL (7.0-11.0); Mono # (Auto) 0.7 th/mm3 (0.0-0.9); Mono % (Auto) 6.3 % (0.0-8.0); Neut # (Auto) 9.5 th/mm3 (1.8-7.7); Platelet Count 164 th/mm3 (150-450); Red Blood Count 4.03 mil/mm3 (4.00-5.30); Red Cell Distribution Width 28.1 % (11.6-17.2); White Blood Count 11.7 th/mm3 (4.0-11.0)
[2017-12-08 18:58] LABS: Activated Partial Thrombo Time 26.7 sec (24.3-30.1); INR 1.1 Ratio; Prothrombin Time 11.3 sec (9.8-11.6)
[2017-12-08] MEDS ORDERED: Acetaminophen 325 MG Tablet PO PRN (19:23)
[2017-12-08] MEDS ORDERED: Bisacodyl 10 MG Supp RECTAL PRN (19:23)
[2017-12-08] MEDS ORDERED: Temazepam 15 MG Capsule PO PRN (19:23)
[2017-12-08 19:29] LABS: Eosinophils 2 % (0-4); Lymphocytes 6 % (9-44); Monocytes 6 % (0-8); Tallied Nucleated RBC 2 (0-0)
[2017-12-08 19:31] LABS: Acanthocytes 2+
[2017-12-08 19:32] LABS: Platelet Estimate Normal (Normal); Platelet Morphology Normal (Normal); Target Cells 1+
[2017-12-08 19:34] LABS: Dimorphic RBC Present
--- NOTE | 2017-12-08 20:34 | P.HPIM ---
History of Present Illness Primary Care Physician: Neftali Chisholm III, MD History of Present Illness: This is a 57-year-old female with a PMH of HTN, ESRD on PD, Recurrent Pleural Effusions, O2 Dependent and CHF (Echo 01/08/17 w/ EF 40-45%) who was referred to the ER by her [employer] for c/o ongoing SOB. States she was started on Home O2 approx 2wks ago by her [employer]. Notes ongoing SOB w/ exertion despite O2 in addition to non-productive cough. Denies fever, chills or chest pain. On arrival, BP 179/84, HR 70, O2 sat 97% on 2L NC, Afebrile. WBC 11.7. INR 1.1. Creatinine 15.84, BNP 1002. CXR with no significant change, bilateral effusions and dense airspace disease remain. CT Chest with bilateral mild pleural effusions, larger on the left, right effusion appears complex with thickening on the right side, left lower lobe consolidation or atelectasis. Pt w/ h/o Pleural effusions requiring chest tube placement in the past. - Diagnosis (1) CHF (congestive heart failure) (2) ESRD (end stage renal disease) on dialysis (3) PNA (pneumonia) (4) Pleural effusion Review of Systems All other systems reviewed negative except as stated in HPI PMFSH - History History Provided By: Patient - Medical History Medical History: Medical History (Last Updated 12/08/17 @ 16:46 by Opal Sierra MD) Dialysis patient Pleural effusion - Tobacco History Second Hand Smoke Exposure: No Smoking Status: Never smoker - Alcohol History How Often Do You Have a Drink Containing Alcohol: Never - Substance Use History Substance History: No History of Abuse - Travel History Recent Travel in the [place] Within the Last 8 Weeks: No Recent Travel Out of the Country Within the Last 8 Weeks: No - Immunization History Tetanus Immunization: <5 Years Hx Influenza Vaccine This Season: Yes Medications and Allergies Active Medications: Active Medications Acetaminophen (Tylenol) 650 mg PO Q4H PRN PRN Reason: Temp > 100.4 Al Hydroxide/Mg Hydroxide (Milk Of Magnopal Liq) 30 ml PO Q12H PRN PRN Reason: Mild Constipation Albuterol (Duoneb Neb (Prn)) 1 ampul NEB Q4HR NEB PRN PRN Reason: SOB/WHEEZING Amlodipine Besylate (Norvasc) 5 mg PO DAILY [facility] Bisacodyl (Dulcolax Supp) 10 mg RECTAL DAILY PRN PRN Reason: SEVERE CONSITIPATION Levofloxacin/Dextrose (Levaquin 750 Mg Premix Inj) 150 mls @ 100 mls/hr IV.SIG Q24H [facility] Last Admin: 12/08/17 20:19 Dose: 100 mls/hr Lactulose (Lactulose Liq) 30 ml PO DAILY PRN PRN Reason: SEVERE CONSITIPATION Metoprolol Tartrate (Lopressor) 50 mg PO BID [facility] Ondansetron HCl (Zofran Odt) 4 mg SL Q6H PRN PRN Reason: NAUSEA OR VOMITING Senna/Docusate Sodium (Annie-Colace) 1 tab PO BID [facility] Sennosides (Senokot) 17.2 mg PO Q12H PRN PRN Reason: Moderate Constipation Sevelamer Carbonate (Renvela) 2,400 mg PO DAILY [facility] Temazepam (Restoril) 15 mg PO HS PRN PRN Reason: INSOMNIA Vitamin B Complex/Vit C/Folic Acid (Nephrocaps) 1 tab PO DAILY [facility] Allergies Allergy/AdvReac Type Severity Reaction Status Date / Time No Known Allergies Allergy Unknown Uncoded 07/31/17 16:04 Home Medications Medication Instructions Recorded Confirmed Type B complex-vitamin C-folic acid 1 tab PO DAILY 12/08/17 12/08/17 History [Nephro-Brenden] amlodipine [Norvasc] 5 mg PO DAILY 12/08/17 12/08/17 History metoprolol tartrate 50 mg PO BID 12/08/17 12/08/17 History sevelamer carbonate [Renvela] 2,400 mg PO DAILY 12/08/17 12/08/17 History Exam Vital signs: Vital Signs 12/08/17 16:23 12/08/17 16:26 12/08/17 16:40 Temperature 98.3 F Pulse Rate 73 Respiratory Rate 22 Blood Pressure 170/77 H Pulse Oximetry 86 L 85 L 96 12/08/17 17:23 12/08/17 18:23 12/08/17 19:42 Temperature Pulse Rate 71 70 Respiratory Rate 16 18 Blood Pressure 177/82 H 179/84 H Pulse Oximetry 96 97 95 Intake & Output 12/08/17 12/08/17 12/09/17 06:59 18:59 06:59 Weight 46.266 kg Narrative: PE: GENERAL: Thin middle-aged black female in no acute distress. HEENT: PERRLA, EOMI. No scleral icterus or conjunctival pallor. No lid lag or facial droop. CARDIOVASCULAR: Regular rate and rhythm. No obvious murmurs to auscultation. No chest tenderness to palpation. RESPIRATORY: No obvious rhonchi or wheezing. Decreased breath sounds at bases bilaterally. GASTROINTESTINAL: Abdomen soft, non-tender, nondistended. BS normal. MUSCULOSKELETAL: Extremities without clubbing, cyanosis, or edema. No obvious deformities. NEUROLOGICAL: Awake, alert and oriented x4. No focal neurologic deficits. Moving both upper and lower extremities spontaneously. Results - Labs CBC & Chem 7: 12/08/17 18:21 12/08/17 16:50 Labs: Short CBC 12/08/17 Range/Units 18:21 WBC 11.7 H (4.0-11.0) th/mm3 Hgb 9.4 L (11.6-15.3) gm/dL Hct 30.0 L (35.0-46.0) % Plt Count 164 (150-450) th/mm3 BMP 12/08/17 16:50 Sodium 135 L Potassium 4.2 Chloride 93 L Carbon Dioxide 28.7 BUN 77 H Creatinine 15.84 H* Calcium 9.3 Liver Function 12/08/17 Range/Units 16:50 Total Bilirubin 0.5 (0.2-1.0) mg/dL AST 33 (15-37) U/L ALT 34 (10-53) U/L Alkaline Phosphatase 162 H (45-117) U/L Albumin 3.2 L (3.4-5.0) g/dL - Imaging Impressions Chest X-Ray 12/08/17 16:40 CONCLUSION: No significant change. Bilateral effusions and dense airspace disease remain. Chest CT 12/08/17 17:29 CONCLUSION: 1. Bilateral mild pleural effusions being larger on the left. The right effusion appears complex superiorly. There is some thickening of the pleural on the right side. 2. Areas of subpleural density seen in the lateral right upper lobe and right lower lobe. These could represent areas of consolidation, mass, or atelectasis. Round atelectasis is posterior with pleural disease could have a similar appearance. 3. Left lower lobe consolidation or atelectasis. 4. Cardiomegaly. There appears to be enlargement of all the chambers. Caprini VTE Risk Assessment Caprini VTE Risk Assessment: No/Low Risk (score <= 1) Caprini Risk Assessment Model: Point Value = 1 Point Value = 2 Point Value = 3 Point Value = 5 Age 41-60 Minor surgery BMI > 25 kg/m2 Swollen legs Varicose veins or History of unexplained or recurrent spontaneous Oral contraceptives or hormone replacement Sepsis (< 1 month) Serious lung disease, including pneumonia (< 1 month) Abnormal pulmonary function Acute myocardial infarction Congestive heart failure (< 1 month) History of inflammatory bowel disease Medical patient at bed rest Age 61-74 Arthroscopic surgery Major open surgery (> 45 min) Laparoscopic surgery (> 45 min) Malignancy Confined to bed (> 72 hours) Immobilizing plaster cast Central venous access Age >= 75 History of VTE Family history of VTE Factor V Leiden Prothrombin [id number] Lupus anticoagulant Anticardiolipin antibodies Elevated serum homocysteine Heparin-induced thrombocytopenia Other congenital or acquired thrombophilia Stroke (< 1 month) Elective arthroplasty Hip, pelvis, or leg fracture Acute spinal cord injury (< 1 month) Prophylaxis Regimen: Total Risk Factor Score Risk Level Prophylaxis Regimen 0-1 Low Early ambulation 2 Moderate Order ONE of the following: *Sequential Compression Device (SCD) *Heparin 5000 units SQ BID 3-4 Higher Order ONE of the following medications: *Heparin 5000 units SQ TID *Enoxaparin/Lovenox 40 mg SQ daily (WT < 150 kg, CrCl > 30 mL/min) *Enoxaparin/Lovenox 30 mg SQ daily (WT < 150 kg, CrCl > 10-29 mL/min) *Enoxaparin/Lovenox 30 mg SQ BID (WT < 150 kg, CrCl > 30 mL/min) AND/OR *Sequential Compression Device (SCD) 5 or more Highest Order ONE of the following medications: *Heparin 5000 units SQ TID (Preferred with Epidurals) *Enoxaparin/Lovenox 40 mg SQ daily (WT < 150 kg, CrCl > 30 mL/min) *Enoxaparin/Lovenox 30 mg SQ daily (WT < 150 kg, CrCl > 10-29 mL/min) *Enoxaparin/Lovenox 30 mg SQ BID (WT < 150 kg, CrCl > 30 mL/min) AND *Sequential Compression Device (SCD) Assessment and Plan - Assessment (1) CHF (congestive heart failure) Code(s): I50.9 - Heart failure, unspecified Status: Acute (2) ESRD (end stage renal disease) on dialysis Code(s): N18.6 - End stage renal disease; Z99.2 - Dependence on renal dialysis Status: Acute (3) PNA (pneumonia) Code(s): J18.9 - Pneumonia, unspecified organism Status: Acute (4) Pleural effusion Code(s): J90 - Pleural effusion, not elsewhere classified Status: Acute - Plan A/P: 1. CHF: Acute on Chronic. Systolic. Echo 01/08/17 w/ EF 40-45%, BNP 1004, CXR w/ stable bilateral effusions. Monitor I/O. 2. Pleural Effusions: h/o Pleural effusions requiring chest tube, CT Chest w/ bilateral pleural effusions, likely complex collection on right, images reviewed. Consult IR for Thoracentesis, send cultures/gram stain/cytology. Consult Pulmonology as needed for further recommendations. 3. ESRD on Dialysis: Follows w/ Dr. Bull, on PD nightly, will consult to arrange dialysis 4. PNA: CT Chest w/ LLL infiltrate, will start on Levaquin, DuoNeb prn. 5. DVT Prophylaxis: SCD/Teds 6. Social work for d/c planning as needed 7. Case discussed w/ ER physician at length, labs/records/imaging reviewed by me
[2017-12-08] MEDS: Senna/Docusate Sodium 8.6/50 MG Tablet PO SCH (21:11)
[2017-12-08] MEDS: Metoprolol Tartrate 25 MG Tablet PO SCH (21:11)
[2017-12-09 07:26] LABS: Baso # (Auto) 0.1 th/mm3 (0.0-0.2); Baso % (Auto) 0.8 % (0.0-2.0); Eos # (Auto) 0.6 th/mm3 (0.0-0.4); Eos % (Auto) 6.4 % (0.0-4.0); Hematocrit 28.2 % (35.0-46.0); Hemoglobin 8.9 gm/dL (11.6-15.3); Lymph # (Auto) 1.1 th/mm3 (1.0-4.8); Lymph % (Auto) 12.1 % (9.0-44.0); Mean Corpuscular HGB Conc 31.6 % (32.0-36.0); Mean Corpuscular Hemoglobin 23.6 pg (27.0-34.0); Mean Corpuscular Volume 74.6 fL (80.0-100.0); Mean Platelet Volume 8.8 fL (7.0-11.0); Mono # (Auto) 0.7 th/mm3 (0.0-0.9); Mono % (Auto) 7.8 % (0.0-8.0); Neut # (Auto) 6.8 th/mm3 (1.8-7.7); Neut % (Auto) 72.9 % (16.0-70.0); Platelet Count 122 th/mm3 (150-450); Red Blood Count 3.78 mil/mm3 (4.00-5.30); Red Cell Distribution Width 27.5 % (11.6-17.2); White Blood Count 9.3 th/mm3 (4.0-11.0)
[2017-12-09 07:51] LABS: Alanine Aminotransferase 25 U/L (10-53); Albumin 2.8 g/dL (3.4-5.0); Anion Gap 14 meq/L (5-15); Aspartate Aminotransferase 12 U/L (15-37); Blood Urea Nitrogen 84 mg/dL (7-18); Carbon Dioxide 26.9 meq/L (21.0-32.0); Chloride 95 meq/L (98-107); Glomerular Filtration Rate 3 mL/min (>89); Glucose,Random 87 mg/dL (74-106); Sodium 136 meq/L (136-145)
[2017-12-09 07:53] LABS: Alkaline Phosphatase 129 U/L (45-117); Total Protein 7.2 g/dL (6.4-8.2)
--- NOTE | 2017-12-09 08:49 | P.PN ---
Subjective Interval history: Follow-up pleural effusions. BACON on NC. Anuric. Patient also has chronic dry cough but no fever or chills. Physical Exam Vital signs: Vital Signs 12/08/17 16:23 12/08/17 16:26 12/08/17 16:40 Temperature 98.3 F Pulse Rate 73 Respiratory Rate 22 Blood Pressure 170/77 H Pulse Oximetry 86 L 85 L 96 12/08/17 17:23 12/08/17 18:23 12/08/17 19:42 Temperature Pulse Rate 71 70 Respiratory Rate 16 18 Blood Pressure 177/82 H 179/84 H Pulse Oximetry 96 97 95 12/08/17 20:00 12/09/17 00:00 12/09/17 03:48 Temperature 98.8 F 98.7 F 98.6 F Pulse Rate 72 68 70 Respiratory Rate 15 15 16 Blood Pressure 179/74 H 148/67 H 160/72 H Pulse Oximetry 91 L 91 L 12/09/17 08:18 Temperature Pulse Rate Respiratory Rate Blood Pressure Pulse Oximetry 95 Intake & Output 12/08/17 12/09/17 12/09/17 18:59 06:59 18:59 Weight 46.266 kg Narrative: GENERAL: Thin middle-aged black female in no acute distress. CARDIOVASCULAR: Regular rate and rhythm. No obvious murmurs to auscultation. No chest tenderness to palpation. RESPIRATORY: No obvious rhonchi or wheezing. Decreased breath sounds at bases bilaterally. GASTROINTESTINAL: Abdomen soft, non-tender, nondistended. BS normal. MUSCULOSKELETAL: Extremities without clubbing, cyanosis, or edema. No obvious deformities. NEUROLOGICAL: Awake, alert and oriented x4. No focal neurologic deficits. Moving both upper and lower extremities spontaneously. Results - Labs CBC & Chem 7: 12/09/17 06:50 12/09/17 07:10 Laboratory Results - last 24 hr 12/08/17 12/08/17 12/08/17 16:50 16:50 18:21 WBC 11.7 H RBC 4.03 Hgb 9.4 L Hct 30.0 L MCV 74.5 L MCH 23.4 L MCHC 31.3 L RDW 28.1 H Plt Count 164 MPV 9.2 Prelim Diff (Auto) Slide review pending Neut % (Auto) 81.0 H Lymph % (Auto) 6.3 L Crane % (Auto) 6.3 Eos % (Auto) 5.4 H Baso % (Auto) 1.0 Neut # (Auto) 9.5 H Lymph # (Auto) 0.7 L Crane # (Auto) 0.7 Eos # (Auto) 0.6 H Baso # (Auto) 0.1 WBC Differential Manual diff final Seg Neuts % (Manual) 85 H Lymphocytes % (Manual) 6 L Monocytes % (Manual) 6 Eosinophils % (Manual) 2 Basophils % (Manual) 1 Abs Neuts (Manual) 9.9 H Nucleated RBCs/100 WBC 2 H Differential Comment . Platelet Estimate Normal Platelet Morphology Normal Dimorphic RBCs Present H Target Cells 1+ H Acanthocytes (Spur) 2+ H PT INR APTT Sodium 135 L Potassium 4.2 Chloride 93 L Carbon Dioxide 28.7 Anion Gap 13 BUN 77 H Creatinine 15.84 H* Estimated GFR 3 L Random Glucose 98 Calcium 9.3 Total Bilirubin 0.5 AST 33 ALT 34 Alkaline Phosphatase 162 H B-Natriuretic Peptide 1002 H Total Protein 8.7 H Albumin 3.2 L 12/08/17 12/09/17 12/09/17 18:21 06:50 07:10 WBC 9.3 RBC 3.78 L Hgb 8.9 L Hct 28.2 L MCV 74.6 L MCH 23.6 L MCHC 31.6 L RDW 27.5 H Plt Count 122 L MPV 8.8 Prelim Diff (Auto) Slide review pending Neut % (Auto) 72.9 H Lymph % (Auto) 12.1 Crane % (Auto) 7.8 Eos % (Auto) 6.4 H Baso % (Auto) 0.8 Neut # (Auto) 6.8 Lymph # (Auto) 1.1 Crane # (Auto) 0.7 Eos # (Auto) 0.6 H Baso # (Auto) 0.1 WBC Differential Seg Neuts % (Manual) Lymphocytes % (Manual) Monocytes % (Manual) Eosinophils % (Manual) Basophils % (Manual) Abs Neuts (Manual) Nucleated RBCs/100 WBC Differential Comment . Platelet Estimate Platelet Morphology Dimorphic RBCs Target Cells Acanthocytes (Spur) PT 11.3 INR 1.1 APTT 26.7 Sodium 136 Potassium 4.0 Chloride 95 L Carbon Dioxide 26.9 Anion Gap 14 BUN 84 H Creatinine 16.42 H* Estimated GFR 3 L Random Glucose 87 Calcium 9.0 Total Bilirubin 0.4 AST 12 L ALT 25 Alkaline Phosphatase 129 H B-Natriuretic Peptide Total Protein 7.2 D Albumin 2.8 L - Imaging Impressions Chest X-Ray 12/08/17 16:40 CONCLUSION: No significant change. Bilateral effusions and dense airspace disease remain. Chest CT 12/08/17 17:29 CONCLUSION: 1. Bilateral mild pleural effusions being larger on the left. The right effusion appears complex superiorly. There is some thickening of the pleural on the right side. 2. Areas of subpleural density seen in the lateral right upper lobe and right lower lobe. These could represent areas of consolidation, mass, or atelectasis. Round atelectasis is posterior with pleural disease could have a similar appearance. 3. Left lower lobe consolidation or atelectasis. 4. Cardiomegaly. There appears to be enlargement of all the chambers. Assessment and Plan - Assessment (1) CHF (congestive heart failure) Code(s): I50.9 - Heart failure, unspecified Status: Acute (2) ESRD (end stage renal disease) on dialysis Code(s): N18.6 - End stage renal disease; Z99.2 - Dependence on renal dialysis Status: Acute (3) PNA (pneumonia) Code(s): J18.9 - Pneumonia, unspecified organism Status: Acute (4) Pleural effusion Code(s): J90 - Pleural effusion, not elsewhere classified Status: Acute - Plan 1. CHF: Acute on Chronic. Systolic. Echo 01/08/17 w/ EF 40-45%, BNP 1004, CXR w/ stable bilateral effusions. Monitor I/O. 2. Pleural Effusions: h/o Pleural effusions requiring chest tube, CT Chest w/ bilateral pleural effusions, likely complex collection on right, images reviewed. Consult IR for Thoracentesis, send cultures/gram stain/cytology. Consult Pulmonology for further recommendations. 3. ESRD on Dialysis: Follows w/ Dr. Ernst, on PD nightly, will consult to arrange dialysis 4. PNA: CT Chest w/ LLL infiltrate, will ct Levaquin, DuoNeb prn. 5. DVT Prophylaxis: SCD/Teds Discharge Planning: Meets criteria for inpatient status will transfer to [facility]
[2017-12-09] MEDS ORDERED: amLODIPine 5 MG Tablet PO SCH (09:00)
[2017-12-09 09:19] LABS: Ovalocytes 1+
[2017-12-09 09:20] LABS: Platelet Morphology Normal (Normal); Tear Drop Cells 1+
[2017-12-09] MEDS: Senna/Docusate Sodium 8.6/50 MG Tablet PO SCH ×3 (10:03→22:13)
[2017-12-09] MEDS: Vitamin B Complex/Vit C/Folic Tablet PO SCH (10:03)
[2017-12-09] MEDS: Metoprolol Tartrate 25 MG Tablet PO SCH ×2 (10:03→22:12)
--- NOTE | 2017-12-09 13:02 | MB ---
cc: Doretha Ernst MD DATE: 12/09/2017 REASON FOR CONSULTATION: End-stage renal disease, on peritoneal dialysis, for management. HISTORY OF PRESENT ILLNESS: This is a 57-year-old female known to me from before with past medical history of hypertension, chronic anemia, recurrent pleural effusion, history of breast cancer, congestive heart failure with ejection fraction of 40-45%, and end-stage renal disease, on peritoneal dialysis, who came to the hospital because of shortness of breath. I was called to see the patient for the management of peritoneal dialysis. The patient has been on peritoneal dialysis. She was on hemodialysis before, but has been on PD for almost 3-4 years now. The patient has recently been diagnosed with a paraumbilical hernia and this was supposed to be repaired on this coming week, Monday. She went to the PD clinic yesterday and she had worsening shortness of breath and it was found that she had decreased air entry in one side of the lung and then she was sent to the emergency department. She has previous history of pleural effusion with a thoracentesis done. She has been following with pulmonary and she was seen about 2 weeks ago and had a chest x-ray done this time and CT scan was done and shows that she has a worsening right-sided effusion and also has left-sided effusion. The patient has mild cough. There is no chest pain. The cough is mainly dry. There is no history of fever. She denies any abdominal pain. The PD fluid has been clear. PAST MEDICAL HISTORY: Hypertension, chronic anemia, congestive heart failure, history of breast cancer, pleural effusion, and end-stage renal disease on peritoneal dialysis. PAST SURGICAL HISTORY: History of PD catheter placement, history of AV fistula surgery, and thoracentesis done in the past. SOCIAL HISTORY: There is no history of smoking or alcoholism. FAMILY HISTORY: Noncontributory. ALLERGIES: SHE HAS NO KNOWN DRUG ALLERGIES. MEDICATIONS: Currently, she is on: 1. Tylenol as needed. 2. DuoNeb as needed. 3. Norvasc 5 mg once a day. 4. Dulcolax 10 mg rectally. 5. Levaquin IV every 24 hours. 6. Metoprolol 50 mg b.i.d. 7. Zofran as needed. 8. Annie-Colace 1 tablet b.i.d. 9. Senokot 17.2 grams hours. 10. Renvela 2.4 grams t.i.d. 11. Nephrocaps once a day. PHYSICAL EXAMINATION: GENERAL: The patient is awake, alert. She is sitting in the bed in mild respiratory distress. VITAL SIGNS: Her last blood pressure is 148/67, temperature is 98.7, oxygen saturation on 2 liters nasal cannula is 91-93%. HEENT: Pupils are mid constricted. Nonicteric sclerae. Conjunctivae pale. NECK: Supple. JVD is not elevated. LUNGS: The patient has bilateral decreased air entry, more on the right side, with basal rales and scattered wheezing. HEART: S1, S2. Regular rate and rhythm. ABDOMEN: Soft and distended. There is no tenderness. Bowel sounds positive. EXTREMITIES: She has no pedal edema. LABORATORY INVESTIGATIONS: WBC count is 9.3, hemoglobin 8.9, platelet count 122, neutrophils 72.9%. Sodium 136, potassium 4.0, chloride 95, bicarbonate 26.9, BUN 84, creatinine 16.4, calcium is 9.0. AST is 12, ALT is 25, LDH is 273. BNP is 1002. Total protein is 7.2 with albumin of 2.8. IMAGING STUDIES: The patient had a chest x-ray done, which shows bilateral pleural effusion and dense airspace disease. CT scan of the chest was done, which shows bilateral mild pleural effusion, larger on the left side. The right pleural effusion appears to be complex superiorly, has some thickening of the pleura, subpleural density in the right upper lobe and the right lower lobe could be consolidation, cardiomegaly. ASSESSMENT AND PLAN: 1. Pleural effusion and possible pneumonia. 2. Shortness of breath. 3. Congestive heart failure. 4. End-stage renal disease, on peritoneal dialysis. 5. Hypertension. 6. Anemia. The patient has been started on IV Levaquin. She is afebrile with the white cell count now normalized. The patient missed her peritoneal dialysis last night, but we will dialyze her today. She is going for thoracentesis. Continue the antibiotic. Thank you for the consultation, and I will follow the patient while she is in the hospital. MD ROYAL Kwan/ANDREE , 12:15 PM , 12:26 PM
--- NOTE | 2017-12-09 15:09 | ECG ---
Date Performed: 12/08/2017 Time Performed: 16:55:34 PTAGE: 57 years EKG: Sinus rhythm MINIMAL VOLTAGE CRITERIA FOR LVH, CONSIDER NORMAL VARIANT NONSPECIFIC T-WAVE ABNORMALITY Since previ ous tracing, no significant change noted BORDERLINE ECG PREVIOUS TRACING : 07/31/2017 13.55 DOCTOR: Presley Driver Interpretating Date/Time 12/09/2017 15:09:43
[2017-12-09] MEDS ORDERED: Lidocaine PF 1% Inj 10 ML Amp ONE (16:04)
--- NOTE | 2017-12-09 16:17 | XR ---
EXAM DATE: 12/09/2017 4:13 PM EDT AGE/SEX: 57 years / Female INDICATIONS: S/P Thoracentesis. CLINICAL DATA: This is the patient's subsequent encounter. Patient reports that signs and symptoms h ave been present for 2 days and indicates a pain score of 0/10. MEDICAL/SURGICAL HISTORY: . Chronic renal failure, dialysis, pleural effusion. . Carcinoma, br east COMPARISON: C, CHEST 1V SINGLE AP, 12/08/2017. . FINDINGS: Improvement following thoracentesis on the right. There is no pneumothorax. Dense consolidation persi sts in both lung bases. CONCLUSION: Improvement on the right fundus thoracentesis without pneumothorax Dense consolidative changes persist in both lungs. Electronically signed by: Tevin Avilez MD 12/09/2017 4:15 PM EDT
[2017-12-09 18:03] LABS: Total Protein,Pleural Fluid 2.7 gm/dL
[2017-12-09 18:04] LABS: Eosinophils,Pleural Fluid 1 %; Lymphocytes,Pleural Fluid 43 %; Monocytes,Pleural Fluid 2 %; Neutrophils,Pleural Fluid 54 %; RBC,Pleural Fluid 6840 /mm3 (0-0)
[2017-12-10 06:30] LABS: Baso # (Auto) 0.1 th/mm3 (0.0-0.2); Baso % (Auto) 0.8 % (0.0-2.0); Eos # (Auto) 0.6 th/mm3 (0.0-0.4); Eos % (Auto) 5.5 % (0.0-4.0); Hematocrit 30.3 % (35.0-46.0); Hemoglobin 9.7 gm/dL (11.6-15.3); Lymph # (Auto) 0.9 th/mm3 (1.0-4.8); Lymph % (Auto) 9.2 % (9.0-44.0); Mean Corpuscular HGB Conc 32.2 % (32.0-36.0); Mean Corpuscular Hemoglobin 23.7 pg (27.0-34.0); Mean Corpuscular Volume 73.5 fL (80.0-100.0); Mean Platelet Volume 9.9 fL (7.0-11.0); Mono # (Auto) 0.7 th/mm3 (0.0-0.9); Mono % (Auto) 6.9 % (0.0-8.0); Neut # (Auto) 7.9 th/mm3 (1.8-7.7); Neut % (Auto) 77.6 % (16.0-70.0); Platelet Count 108 th/mm3 (150-450); Red Blood Count 4.12 mil/mm3 (4.00-5.30); Red Cell Distribution Width 26.8 % (11.6-17.2); White Blood Count 10.2 th/mm3 (4.0-11.0)
[2017-12-10 06:49] LABS: Calcium 9.4 mg/dL (8.5-10.1); Carbon Dioxide 24.8 meq/L (21.0-32.0); Magnesium 3.8 mg/dL (1.5-2.5); Potassium 3.9 meq/L (3.5-5.1)
[2017-12-10 07:55] LABS: Eosinophils 6 % (0-4); Lymphocytes 6 % (9-44); Monocytes 5 % (0-8); Tallied Nucleated RBC 1 (0-0)
[2017-12-10 07:56] LABS: Howell-Jolly Bodies Present; Ovalocytes 1+; Platelet Morphology Normal (Normal)
[2017-12-10 07:57] LABS: Dimorphic RBC Present; Tear Drop Cells 1+
--- NOTE | 2017-12-10 08:24 | P.PN ---
Subjective Interval history: Follow-up pleural effusion and pneumonia. She is about the same on 2 L nasal cannula which he uses at home. Tolerated thoracentesis Physical Exam Vital signs: Vital Signs 12/09/17 12:00 12/09/17 20:00 12/09/17 23:26 Temperature 98.3 F 98.6 F 98.5 F Pulse Rate 67 76 72 Respiratory Rate 16 14 18 Blood Pressure 167/77 H 158/79 H 178/83 H Pulse Oximetry 98 95 12/10/17 01:13 12/10/17 04:00 12/10/17 07:58 Temperature 98.3 F 98.4 F Pulse Rate 69 74 Respiratory Rate 17 16 Blood Pressure 162/74 H 166/77 H Pulse Oximetry 95 94 L 94 L Narrative: GENERAL: Thin middle-aged black female in no acute distress on nasal cannula. CARDIOVASCULAR: Regular rate and rhythm. No obvious murmurs to auscultation. No chest tenderness to palpation. RESPIRATORY: No obvious rhonchi or wheezing. Decreased breath sounds at bases bilaterally. GASTROINTESTINAL: Abdomen soft, non-tender, nondistended. BS normal. MUSCULOSKELETAL: Extremities without clubbing, cyanosis, or edema. No obvious deformities. NEUROLOGICAL: Awake, alert and oriented x4. No focal neurologic deficits. Moving both upper and lower extremities spontaneously. Results - Labs CBC & Chem 7: 12/10/17 05:45 12/10/17 05:45 Laboratory Results - last 24 hr 12/09/17 12/09/17 12/09/17 06:50 07:10 15:44 WBC RBC Hgb Hct MCV MCH MCHC RDW Plt Count MPV Prelim Diff (Auto) Neut % (Auto) Lymph % (Auto) [place] % (Auto) Eos % (Auto) Baso % (Auto) Neut # (Auto) Lymph # (Auto) [place] # (Auto) Eos # (Auto) Baso # (Auto) WBC Differential Manual diff final Seg Neuts % (Manual) Lymphocytes % (Manual) Monocytes % (Manual) Eosinophils % (Manual) Basophils % (Manual) Abs Neuts (Manual) Nucleated RBCs/100 WBC Differential Comment Platelet Estimate Low L Platelet Morphology Normal Dimorphic RBCs Polychromasia 2.0 H Tear Drop Cells 1+ H Ovalocytes 1+ H Ocrtes-Beggs Bodies Keratocytes Occ H Sodium Potassium Chloride Carbon Dioxide Anion Gap BUN Creatinine Estimated GFR Random Glucose Calcium Magnesium Lactate Dehydrogenase 273 H Pleural RBC Pleural Nuc Cells Pleural Neutrophils Pleural Lymphocytes Pleural Monocytes Pleural Eosinophils Pleural Fluid Comment Pleural Total Protein 2.7 Pleural LDH 392 12/09/17 12/10/17 12/10/17 15:44 05:45 05:45 WBC 10.2 RBC 4.12 Hgb 9.7 L Hct 30.3 L MCV 73.5 L MCH 23.7 L MCHC 32.2 RDW 26.8 H Plt Count 108 L MPV 9.9 Prelim Diff (Auto) Slide review pending Neut % (Auto) 77.6 H Lymph % (Auto) 9.2 [place] % (Auto) 6.9 Eos % (Auto) 5.5 H Baso % (Auto) 0.8 Neut # (Auto) 7.9 H Lymph # (Auto) 0.9 L [place] # (Auto) 0.7 Eos # (Auto) 0.6 H Baso # (Auto) 0.1 WBC Differential Manual diff final Seg Neuts % (Manual) 82 H Lymphocytes % (Manual) 6 L Monocytes % (Manual) 5 Eosinophils % (Manual) 6 H Basophils % (Manual) 1 Abs Neuts (Manual) 8.4 H Nucleated RBCs/100 WBC 1 H Differential Comment . Platelet Estimate Low L Platelet Morphology Normal Dimorphic RBCs Present H Polychromasia Tear Drop Cells 1+ H Ovalocytes 1+ H Cortes-Beggs Bodies Present H Keratocytes 1+ H Sodium 135 L Potassium 3.9 Chloride 94 L Carbon Dioxide 24.8 Anion Gap 16 H BUN 86 H Creatinine 16.28 H* Estimated GFR 3 L Random Glucose 93 Calcium 9.4 Magnesium 3.8 H Lactate Dehydrogenase Pleural RBC 6840 H Pleural Nuc Cells 102 H Pleural Neutrophils 54 Pleural Lymphocytes 43 Pleural Monocytes 2 Pleural Eosinophils 1 Pleural Fluid Comment Pleural Total Protein Pleural LDH Microbiology 12/09/17 15:44 Fluid - Pleural fluid Gram Stain - Final - Imaging Impressions Chest X-Ray 12/09/17 00:00 CONCLUSION: Improvement on the right fundus thoracentesis without pneumothorax Dense consolidative changes persist in both lungs. - Procedures Diagnostic thoracentesis Assessment and Plan - Assessment (1) CHF (congestive heart failure) Code(s): I50.9 - Heart failure, unspecified Status: Acute (2) ESRD (end stage renal disease) on dialysis Code(s): N18.6 - End stage renal disease; Z99.2 - Dependence on renal dialysis Status: Acute (3) PNA (pneumonia) Code(s): J18.9 - Pneumonia, unspecified organism Status: Acute (4) Pleural effusion Code(s): J90 - Pleural effusion, not elsewhere classified Status: Acute - Plan 1. CHF: Acute on Chronic. Systolic. Echo 01/08/17 w/ EF 40-45%, BNP 1004, CXR w/ stable bilateral effusions. Monitor I/O. Stable continue beta-ivis. Unable to start DAVINA inhibitor secondary to renal dysfunction. 2. Pleural Effusions: h/o Pleural effusions requiring chest tube, CT Chest w/ bilateral pleural effusions, likely complex collection on right, images reviewed. Status post thoracentesis. No organism on Gram stain. Cultures pending. Pleural studies indicate transudate. Consult Pulmonology for further recommendations. 3. ESRD on Dialysis: Follows w/ Dr. Ernst, on PD nightly, may need adjustment creatinine not any better 4. PNA: CT Chest w/ LLL infiltrate, will ct Henrique Davis prn. 5. DVT Prophylaxis: SCD/Teds Discharge Planning: Meets criteria for inpatient status will transfer to [facility]
[2017-12-10] MEDS: Metoprolol Tartrate 25 MG Tablet PO SCH ×2 (09:24→21:20)
[2017-12-10] MEDS: Vitamin B Complex/Vit C/Folic Tablet PO SCH (09:24)
[2017-12-10] MEDS: amLODIPine 10 MG Tablet PO SCH (09:24)
[2017-12-10] MEDS: Senna/Docusate Sodium 8.6/50 MG Tablet PO SCH ×2 (09:25→21:20)
--- NOTE | 2017-12-10 12:15 | P.PNNP ---
Subjective Interval history: Patient seen, alert, mild SOB, no chest pain, no abd. pain. Physical Exam Vital signs: Vital Signs 12/09/17 20:00 12/09/17 23:26 12/10/17 01:13 Temperature 98.6 F 98.5 F Pulse Rate 76 72 Respiratory Rate 14 18 Blood Pressure 158/79 H 178/83 H Pulse Oximetry 95 95 12/10/17 04:00 12/10/17 07:58 12/10/17 08:00 Temperature 98.3 F 98.4 F Pulse Rate 69 74 Respiratory Rate 17 16 16 Blood Pressure 162/74 H 166/77 H Pulse Oximetry 94 L 94 L 12/10/17 09:13 Temperature Pulse Rate Respiratory Rate Blood Pressure Pulse Oximetry 94 L Narrative: GENERAL: Thin middle-aged black female in no acute distress on nasal cannula. CARDIOVASCULAR: Regular rate and rhythm. No obvious murmurs to auscultation. No chest tenderness to palpation. RESPIRATORY: No obvious rhonchi or wheezing. Decreased breath sounds at bases bilaterally, with few basal rales. GASTROINTESTINAL: Abdomen soft, non-tender, nondistended. BS normal. MUSCULOSKELETAL: Extremities without clubbing, cyanosis, or edema. No obvious deformities. NEUROLOGICAL: Awake, alert and oriented x4. No focal neurologic deficits. Moving both upper and lower extremities spontaneously. Assessment and Plan - Plan 1. Pleural effusion and possible pneumonia. 2. Shortness of breath. 3. Congestive heart failure. 4. End-stage renal disease, on peritoneal dialysis. 5. Hypertension. 6. Anemia. Patient has Thoracentesis done and only small amount of fluid removed. Pulmonary consulted. BP is stable, Hgb. almost same. Tolerating PD. No abd. pain, PD fluid is clear. Continue same PD., Labs noted.
--- NOTE | 2017-12-10 13:33 | MB ---
cc: Estevan Bhakta MD DATE: 12/10/2017 REASON FOR CONSULTATION: Shortness of breath. HISTORY OF PRESENT ILLNESS: The patient is a 57-year-old female with past medical history of hypertension, end-stage renal disease on peritoneal dialysis on 2 liters home oxygen. The patient is known to Dr. Calle, her outpatient still operator. She also has history of CHF with EF of 40-45% on the echo from 12/2016. She was admitted to hospitalist service on 12/08/2017 for shortness of breath and CHF. She had a CT scan of the chest on 12/08/2017, which showed bilateral pleural effusion with some thickening of the pleura on the right side and left lower lobe consolidation or atelectasis and cardiomegaly. She underwent ultrasound-guided thoracentesis on 12/09/2017. Chest x-ray post-thoracentesis showed improvement on the right without any evidence of pneumothorax. Dense consolidative changes persist in both lungs. The patient was also started on empiric antibiotics in the form of Levaquin. When seen, she remains on 2 liters oxygen. She denies any prior history of tobacco use. In addition, she denies any chest pain, orthopnea, PND, or edema of lower extremities. The patient reports chronic cough. Pulmonary Medicine was consulted for shortness of breath. PAST MEDICAL HISTORY: Significant for CHF, end-stage renal disease on hemodialysis. SOCIAL HISTORY: Nonsmoker, nondrinker. ALLERGIES: NO KNOWN DRUG ALLERGIES. PAST SURGICAL HISTORY: History of a PD catheter placement, history of AV fistula surgery and thoracentesis in the past. FAMILY HISTORY: Noncontributory to present illness. MEDICATIONS: Include: 1. DuoNeb. 2. Norvasc. 3. Dulcolax. 4. Levaquin. 5. Lopressor. 6. Annie-Colace. 7. Senokot. 8. Nephrocaps. REVIEW OF SYSTEMS: As per HPI, rest of the review of systems is unremarkable. PHYSICAL EXAMINATION: GENERAL: A 57-year-old female lying in bed in no acute respiratory distress. VITAL SIGNS: Temperature 98.4, pulse of 74, respiratory rate 16, blood pressure 166/77, saturation 94% on 2 liter oxygen. HEENT: Atraumatic, normocephalic. Pupils are equal, round, reactive to light and accommodation. Extraocular muscles intact. Conjunctivae pink, anicteric sclerae. Oral mucosa within normal. NECK: Supple. No JVD, adenopathy or thyromegaly. Trachea in the midline. CARDIOVASCULAR: Regular rate and rhythm. Normal S1, S2. No murmurs, rubs or gallops noted. PULMONARY: Bilateral equal air entry, diminished at the bases. No crackles or wheezing. ABDOMEN: Soft, nontender. No distention. Positive bowel sounds. EXTREMITIES: No cyanosis, clubbing, edema. NEUROLOGIC: No focal sensory deficit. LABORATORY DATA: Sodium 135, potassium 3.9, chloride 94, CO2 24, BUN 86, creatinine 16.2, glucose of 93. BNP 1002. WBC 10.2, hemoglobin 9.7, hematocrit 30, platelet count of 108. RADIOGRAPHIC STUDIES: Chest x-ray post-thoracentesis showed improvement in the right without any evidence of pneumothorax. Dense consolidative changes persist in both lungs. IMPRESSION: 1. Acute respiratory insufficiency. 2. Bilateral pleural effusion, status post ultrasound right-sided thoracentesis, exudative fluid per LDH criteria. 3. Left lower lobe consolidation/atelectasis. 4. End-stage renal disease, on peritoneal dialysis. 5. Congestive heart failure with ejection fraction of 40-45%. 6. Anemia and thrombocytopenia. 7. Mild hyponatremia. RECOMMENDATIONS: 1. Continue with oxygen and maintain sats above 92%. 2. Bronchodilators in the form of DuoNeb q. 4 hours plus q. 2 hours p.r.n. for shortness of breath. 3. The patient is status post ultrasound-guided thoracentesis. Followup on pleural fluid culture. 4. Continue with antibiotics in the form of Levaquin and monitor for signs of infection, which include fever and WBC. We will obtain a sputum culture, Gram stain and will check strep pneumonia and legionella urinary antigen. 5. Peritoneal dialysis per renal. 6. Monitor renal function, I's and O's and avoid nephrotoxins. Dr. Ernst from nephrology service is following. 7. Monitor CBC. 8. Gastrointestinal and deep venous thrombosis prophylaxis per primary team. 9. Further recommendations will be based on hospital course. Thank you for this consultation and allowing us to participate in this patient's care. MD PATTI Mejia , 01:04 PM , 01:15 PM
[2017-12-10] MEDS: Levofloxacin 500 mg Premix Inj 500 MG/100 ML PIGGYBACK IV.SIG SCH (21:21)
[2017-12-11] MEDS: amLODIPine 10 MG Tablet PO SCH (09:03)
[2017-12-11] MEDS: Vitamin B Complex/Vit C/Folic Tablet PO SCH (09:03)
[2017-12-11] MEDS: Metoprolol Tartrate 25 MG Tablet PO SCH ×2 (09:04→21:36)
[2017-12-11] MEDS: Senna/Docusate Sodium 8.6/50 MG Tablet PO SCH ×2 (09:05→21:38)
--- NOTE | 2017-12-11 10:44 | P.PNIM ---
Subjective Interval history: The patient was sitting in a chair. She denied any acute complaints. She has been having bowel movements. She has been ambulatory. She denied shortness of breath. Physical Exam Vital signs: Vital Signs 12/10/17 12:00 12/10/17 16:00 12/10/17 16:05 Temperature 98.0 F 97.8 F Pulse Rate 69 62 73 Respiratory Rate 14 14 12 Blood Pressure 157/77 H 156/75 H Pulse Oximetry 98 98 93 L 12/10/17 20:00 12/10/17 21:16 12/10/17 23:52 Temperature 98.1 F Pulse Rate 76 66 65 Respiratory Rate 17 16 Blood Pressure 146/71 H Pulse Oximetry 96 12/11/17 00:00 12/11/17 00:23 12/11/17 04:00 Temperature 97.4 F L 98.1 F Pulse Rate 65 70 68 Respiratory Rate 17 16 17 Blood Pressure 147/67 H 155/69 H Pulse Oximetry 97 92 L 12/11/17 09:55 Temperature Pulse Rate 73 Respiratory Rate 16 Blood Pressure Pulse Oximetry 98 Intake & Output 12/10/17 12/11/17 12/11/17 18:59 06:59 18:59 Intake Total 480 / 480 480 / 480 Balance 480 / 480 480 / 480 Weight 45.1 kg Intake: Oral 480 / 480 480 / 480 Narrative: GENERAL: Thin middle-aged female in no acute distress. CARDIOVASCULAR: Regular rate and rhythm. No obvious murmurs. RESPIRATORY: Scattered rhonchi. GASTROINTESTINAL: Abdomen soft, non-tender, nondistended. BS normal. MUSCULOSKELETAL: Extremities without clubbing, cyanosis, or edema. No obvious deformities. NEUROLOGICAL: Awake, alert and oriented x4. No focal neurologic deficits. Moving both upper and lower extremities spontaneously. Results - Labs CBC & Chem 7: 12/10/17 05:45 12/10/17 05:45 Microbiology 12/09/17 15:44 Fluid - Pleural fluid Gram Stain - Final 12/09/17 15:44 Fluid - Pleural fluid Body Fluid Culture - Preliminary No growth in 24 hours - Procedures Diagnostic thoracentesis Assessment and Plan - Assessment (1) CHF (congestive heart failure) Code(s): I50.9 - Heart failure, unspecified Status: Acute (2) ESRD (end stage renal disease) on dialysis Code(s): N18.6 - End stage renal disease; Z99.2 - Dependence on renal dialysis Status: Acute (3) PNA (pneumonia) Code(s): J18.9 - Pneumonia, unspecified organism Status: Acute (4) Pleural effusion Code(s): J90 - Pleural effusion, not elsewhere classified Status: Acute - Plan CHF Acute on chronic systolic. Echo 01/08/17 w/ EF 40-45%, BNP 1004, CXR w/ stable bilateral effusions. - Monitor I/O. - continue beta-ivis. - Unable to start DAVINA inhibitor secondary to renal dysfunction. Pleural effusions/ PNA H/o pleural effusions requiring chest tube. CT Chest w/ bilateral pleural effusions, likely complex collection on right, LLL infiltrate. Status post thoracentesis. No organism on Gram stain. Pleural studies indicate transudate. - Consulted pulmonology, appreciate recommendations. - continue Levaquin. - nebs. - follow cultures. ESRD on Dialysis Follows w/ Dr. Ernst, on PD nightly. - continue dialysis per nephrology. - avoid nephrotoxins. Anemia Likely s/t renal disease. At baseline. - follow CBC as needed. DVT Prophylaxis: SCD/Teds
--- NOTE | 2017-12-11 11:14 | US ---
EXAM DATE: 12/09/2017 4:14 PM EDT AGE/SEX: 57 years / Female INDICATIONS: Right pleural effusion. CLINICAL DATA: This is the patient's initial encounter. Patient reports that signs and symptoms have been present for 1 week and indicates a pain score of 3/10. MEDICAL/SURGICAL HISTORY: . Pleural effusion. Dialysis. Renal failure. . Chest tube placement. COMPARISON: . FLUID: Total volume of 100 cc of clear, red fluid was removed. Fluid was sent to lab for ordered studies. . . TECHNIQUE: Ultrasound guidance for thoracentesis. Thoracentesis. The risks, benefits, and alternatives to ultrasound guided thoracentesis were explained to the patien t in lay simple terms, including the risk of bleeding and infection. Written and verbal informed con sent was obtained. Appropriate area for right thoracentesis was marked under ultrasound guidance with the patient in the upright position. Overlying skin was prepped and draped in the usual sterile fashion and with local anesthetic, a dermatotomy was made with an 11 blade scalpel. A 6 Lao thoracentesis catheter was placed in the pleural space and fluid was removed. Catheter was then removed and a sterile dressing applied. There were no immediate complications. The patient tolerated the procedure well and the lef t the ultrasound suite in stable condition. Chest radiograph is to be obtained. FINDINGS: The diagnostic amount of fluid was identified estimated to be 100 to 200 cc. CONCLUSION: 1. Uncomplicated thoracentesis Electronically signed by: Garret Wiggins MD 12/11/2017 11:12 AM EDT
--- NOTE | 2017-12-11 20:08 | P.PNPL ---
Subjective Interval history: 57 YOAA female with ESRD,on dialysis with sob Had TC, 100 cc fluid removed Mild sob No Fever Physical Exam Vital signs: Vital Signs 12/10/17 21:16 12/10/17 23:52 12/11/17 00:00 Temperature 97.4 F L Pulse Rate 66 65 65 Respiratory Rate 16 17 Blood Pressure 147/67 H Pulse Oximetry 97 12/11/17 00:23 12/11/17 04:00 12/11/17 08:00 Temperature 98.1 F 98.7 F Pulse Rate 70 68 73 Respiratory Rate 16 17 16 Blood Pressure 155/69 H 167/78 H Pulse Oximetry 92 L 96 12/11/17 09:55 12/11/17 12:00 12/11/17 16:00 Temperature 97.9 F 98.4 F Pulse Rate 73 70 74 Respiratory Rate 16 17 17 Blood Pressure 127/67 141/67 H Pulse Oximetry 98 94 L 95 Intake & Output 12/11/17 12/11/17 12/12/17 06:59 18:59 06:59 Intake Total 480 / 480 720 / 720 Balance 480 / 480 720 / 720 Intake: Oral 480 / 480 720 / 720 Other: # Voids 2 # Bowel Movements 1 GENERAL: MBMN, NAD SKIN: Warm and dry. HEAD: Normocephalic. EYES: No scleral icterus. No injection or drainage. NECK: Supple, trachea midline. No JVD or lymphadenopathy. CARDIOVASCULAR: Regular rate and rhythm without murmurs, gallops, or rubs. RESPIRATORY: Breath sounds equal bilaterally. No accessory muscle use. GASTROINTESTINAL: Abdomen soft, non-tender, nondistended. MUSCULOSKELETAL: No cyanosis, or edema. BACK: Nontender without obvious deformity. No CVA tenderness. Assessment and Plan - Plan IMPRESSION Pleural effusion Resp insuff ESRD Anemia PLAN: Supplement 02 Aerosol nebs Cont Abx
--- NOTE | 2017-12-11 23:39 | P.PNNP ---
Subjective Interval history: Patient seen in AM, alert, mild SOB. Physical Exam Vital signs: Vital Signs 12/10/17 23:52 12/11/17 00:00 12/11/17 00:23 Temperature 97.4 F L Pulse Rate 65 65 70 Respiratory Rate 17 16 Blood Pressure 147/67 H Pulse Oximetry 97 12/11/17 04:00 12/11/17 08:00 12/11/17 09:55 Temperature 98.1 F 98.7 F Pulse Rate 68 73 73 Respiratory Rate 17 16 16 Blood Pressure 155/69 H 167/78 H Pulse Oximetry 92 L 96 98 12/11/17 12:00 12/11/17 16:00 12/11/17 20:00 Temperature 97.9 F 98.4 F 97.7 F Pulse Rate 70 74 69 Respiratory Rate 17 17 15 Blood Pressure 127/67 141/67 H 119/59 L Pulse Oximetry 94 L 95 96 Intake & Output 12/11/17 12/11/17 12/12/17 06:59 18:59 06:59 Intake Total 480 / 480 720 / 720 Balance 480 / 480 720 / 720 Intake: Oral 480 / 480 720 / 720 Other: # Voids 2 # Bowel Movements 1 Narrative: GENERAL: Thin middle-aged female in no acute distress. CARDIOVASCULAR: Regular rate and rhythm. No obvious murmurs. RESPIRATORY: Scattered rhonchi. GASTROINTESTINAL: Abdomen soft, non-tender, nondistended. BS normal. MUSCULOSKELETAL: Extremities without clubbing, cyanosis, or edema. No obvious deformities. NEUROLOGICAL: Awake, alert and oriented x4. No focal neurologic deficits. Moving both upper and lower extremities spontaneously. Assessment and Plan - Plan 1. Pleural effusion and possible pneumonia. 2. Shortness of breath. 3. Congestive heart failure. 4. End-stage renal disease, on peritoneal dialysis. 5. Hypertension. 6. Anemia. Patient has Thoracentesis done and only small amount of fluid removed. BP is stable, Hgb. almost same. Tolerating PD. No abd. pain, PD fluid is clear. Continue same PD., Pulmonary consulted, will follow the recommendation.
[2017-12-12 04:39] LABS: Baso % (Auto) 0.5 % (0.0-2.0); Calcium 8.3 mg/dL (8.5-10.1); Carbon Dioxide 27.8 meq/L (21.0-32.0); Eos # (Auto) 0.6 th/mm3 (0.0-0.4); Eos % (Auto) 6.9 % (0.0-4.0); Hematocrit 25.8 % (35.0-46.0); Hemoglobin 8.2 gm/dL (11.6-15.3); Lymph # (Auto) 1.1 th/mm3 (1.0-4.8); Lymph % (Auto) 12.2 % (9.0-44.0); Mean Corpuscular HGB Conc 31.8 % (32.0-36.0); Mean Corpuscular Hemoglobin 23.8 pg (27.0-34.0); Mean Platelet Volume 10.8 fL (7.0-11.0); Mono # (Auto) 0.9 th/mm3 (0.0-0.9); Neut # (Auto) 6.5 th/mm3 (1.8-7.7); Neut % (Auto) 70.4 % (16.0-70.0); Platelet Count 85 th/mm3 (150-450); Potassium 3.6 meq/L (3.5-5.1); Red Blood Count 3.44 mil/mm3 (4.00-5.30); Red Cell Distribution Width 27.6 % (11.6-17.2); White Blood Count 9.3 th/mm3 (4.0-11.0)
[2017-12-12 06:17] LABS: Acanthocytes Occ
[2017-12-12] MEDS: Vitamin B Complex/Vit C/Folic Tablet PO SCH (09:12)
[2017-12-12] MEDS: amLODIPine 10 MG Tablet PO SCH (09:12)
[2017-12-12] MEDS: Metoprolol Tartrate 25 MG Tablet PO SCH ×2 (09:12→22:26)
[2017-12-12] MEDS: Senna/Docusate Sodium 8.6/50 MG Tablet PO SCH ×2 (09:13→22:26)
[2017-12-12] MEDS ORDERED: Benzonatate 100 MG Capsule PO ONE (14:52)
[2017-12-12] MEDS ORDERED: guaiFENesin 600 MG ER Tablet PO ONE (14:52)
--- NOTE | 2017-12-12 14:56 | P.PNIM ---
Subjective Interval history: The patient states that her breathing is at baseline. She wants something to help cough up her congestion. She says that her neck is hurting her from the bed. She feels weak and would like to work with physical therapy. Discussed with nephrology. Physical Exam Vital signs: Vital Signs 12/11/17 16:00 12/11/17 20:00 12/11/17 21:06 Temperature 98.4 F 97.7 F Pulse Rate 74 69 73 Respiratory Rate 17 15 22 Blood Pressure 141/67 H 119/59 L Pulse Oximetry 95 96 93 L 12/12/17 00:00 12/12/17 00:30 12/12/17 03:45 Temperature 98 F 98.1 F Pulse Rate 65 64 67 Respiratory Rate 15 18 15 Blood Pressure 119/62 115/68 Pulse Oximetry 92 L 93 L 12/12/17 08:00 12/12/17 08:51 12/12/17 08:52 Temperature 98.2 F Pulse Rate 76 76 Respiratory Rate 17 17 Blood Pressure 131/63 Pulse Oximetry 97 98 12/12/17 11:58 12/12/17 12:00 Temperature 97.5 F L Pulse Rate 70 76 Respiratory Rate 17 18 Blood Pressure 116/60 Pulse Oximetry 97 Intake & Output 12/11/17 12/12/17 12/12/17 18:59 06:59 18:59 Intake Total 720 / 720 240 / 240 Output Total 1333 / 1333 Balance 720 / 720 240 / 240 -1333 / -1333 Weight 46 kg Intake: Oral 720 / 720 240 / 240 Output: Peritoneal Amount 1333 / 1333 Other: # Voids 2 3 # Bowel Movements 1 Narrative: GENERAL: Thin middle-aged female in no acute distress. HEENT: NC, AT. CARDIOVASCULAR: Regular rate and rhythm. No obvious murmurs. RESPIRATORY: Crackles at the right base. GASTROINTESTINAL: Abdomen soft, non-tender, nondistended. BS normal. MUSCULOSKELETAL: Extremities without clubbing, cyanosis, or edema. No obvious deformities. NEUROLOGICAL: Awake, alert and oriented x4. No focal neurologic deficits. Moving both upper and lower extremities spontaneously. Results - Labs CBC & Chem 7: 12/12/17 03:56 12/12/17 03:56 Laboratory Results - last 24 hr 12/12/17 12/12/17 03:56 03:56 WBC 9.3 RBC 3.44 L Hgb 8.2 L Hct 25.8 L MCV 75.0 L MCH 23.8 L MCHC 31.8 L RDW 27.6 H Plt Count 85 L MPV 10.8 Prelim Diff (Auto) Slide review pending Neut % (Auto) 70.4 H Lymph % (Auto) 12.2 [place] % (Auto) 10.0 H Eos % (Auto) 6.9 H Baso % (Auto) 0.5 Neut # (Auto) 6.5 Lymph # (Auto) 1.1 [place] # (Auto) 0.9 Eos # (Auto) 0.6 H Baso # (Auto) 0.0 WBC Differential . Diff Scan Auto diff confirmed Differential Comment . Platelet Estimate Low L Platelet Morphology Enlarged H Acanthocytes (Spur) Occ H Keratocytes Occ H Sodium 137 Potassium 3.6 Chloride 95 L Carbon Dioxide 27.8 Anion Gap 14 BUN 67 H Creatinine 14.99 H* D Estimated GFR 3 L Random Glucose 105 Calcium 8.3 L D Microbiology 12/09/17 15:44 Fluid - Pleural fluid Gram Stain - Final 12/09/17 15:44 Fluid - Pleural fluid Body Fluid Culture - Final No growth in 72 hours (aerobically and anaerobically ) 12/09/17 15:44 Fluid - Pleural fluid Fungal Smear - Final No fungal elements seen - Procedures Diagnostic thoracentesis Assessment and Plan - Assessment (1) CHF (congestive heart failure) Code(s): I50.9 - Heart failure, unspecified Status: Acute (2) ESRD (end stage renal disease) on dialysis Code(s): N18.6 - End stage renal disease; Z99.2 - Dependence on renal dialysis Status: Acute (3) PNA (pneumonia) Code(s): J18.9 - Pneumonia, unspecified organism Status: Acute (4) Pleural effusion Code(s): J90 - Pleural effusion, not elsewhere classified Status: Acute - Plan CHF Acute on chronic systolic. Echo 01/08/17 w/ EF 40-45%, BNP 1004, CXR w/ stable bilateral effusions. - Monitor I/O. - continue beta-ivis. - Unable to start DAVINA inhibitor secondary to renal dysfunction. - volume management with dialysis. - PT eval. Pleural effusions/ PNA H/o pleural effusions requiring chest tube. CT Chest w/ bilateral pleural effusions, likely complex collection on right, LLL infiltrate. Status post thoracentesis. No organism on Gram stain. Pleural studies indicate transudate. - Consulted pulmonology, appreciate recommendations. - continue Levaquin. - nebs. - follow cultures. - add guaifenesin and Tessalon Perles. ESRD on Dialysis Follows w/ Dr. Ernst, on PD nightly. - continue dialysis per nephrology. - avoid nephrotoxins. Anemia Likely s/t renal disease. At baseline. - follow CBC as needed. DVT Prophylaxis: SCD/Teds
--- NOTE | 2017-12-12 16:17 | P.PNNP ---
Subjective Interval history: Resting comfortably. PD nightly. Reports some congestion. <Ariela Snider - Last Filed: 12/12/17 16:07> Physical Exam Vital signs: Vital Signs 12/11/17 20:00 12/11/17 21:06 12/12/17 00:00 Temperature 97.7 F 98 F Pulse Rate 69 73 65 Respiratory Rate 15 22 15 Blood Pressure 119/59 L 119/62 Pulse Oximetry 96 93 L 92 L 12/12/17 00:30 12/12/17 03:45 12/12/17 08:00 Temperature 98.1 F 98.2 F Pulse Rate 64 67 76 Respiratory Rate 18 15 17 Blood Pressure 115/68 131/63 Pulse Oximetry 93 L 97 12/12/17 08:51 12/12/17 08:52 12/12/17 11:58 Temperature Pulse Rate 76 70 Respiratory Rate 17 17 Blood Pressure Pulse Oximetry 98 12/12/17 12:00 12/12/17 15:40 Temperature 97.5 F L Pulse Rate 76 74 Respiratory Rate 18 17 Blood Pressure 116/60 Pulse Oximetry 97 Intake & Output 12/11/17 12/12/17 12/12/17 18:59 06:59 18:59 Intake Total 720 / 720 240 / 240 Output Total 1333 / 1333 Balance 720 / 720 240 / 240 -1333 / -1333 Weight 46 kg Intake: Oral 720 / 720 240 / 240 Output: Peritoneal Amount 1333 / 1333 Other: # Voids 2 3 # Bowel Movements 1 - Constitutional no acute distress - Routine HEENT Exam Head: Present: normocephalic ENT: Present: mucous membranes moist - Routine Neck Exam Present: supple. Absent: JVD - Routine Respiratory Exam Present: decreased breath sounds. Absent: rales - Routine Cardiovascular Exam Present: RRR - Routine Abdominal Exam Present: soft, normoactive bowel sounds. Absent: tenderness Comments: PD catheter - Routine Extremities Exam Absent: edema - Routine Skin Exam Present: dry, warm - Routine Neurological Exam Present: alert, oriented X3 - Routine Psychiatric Exam Present: cooperative <Ariela Snider - Last Filed: 12/12/17 16:07> Vital signs: Vital Signs 12/11/17 20:00 12/11/17 21:06 12/12/17 00:00 Temperature 97.7 F 98 F Pulse Rate 69 73 65 Respiratory Rate 15 22 15 Blood Pressure 119/59 L 119/62 Pulse Oximetry 96 93 L 92 L 12/12/17 00:30 12/12/17 03:45 12/12/17 08:00 Temperature 98.1 F 98.2 F Pulse Rate 64 67 76 Respiratory Rate 18 15 17 Blood Pressure 115/68 131/63 Pulse Oximetry 93 L 97 12/12/17 08:51 12/12/17 08:52 12/12/17 11:58 Temperature Pulse Rate 76 70 Respiratory Rate 17 17 Blood Pressure Pulse Oximetry 98 12/12/17 12:00 12/12/17 15:40 12/12/17 16:00 Temperature 97.5 F L 98.0 F Pulse Rate 76 74 73 Respiratory Rate 18 17 18 Blood Pressure 116/60 118/61 Pulse Oximetry 97 99 Intake & Output 12/11/17 12/12/17 12/12/17 18:59 06:59 18:59 Intake Total 720 / 720 240 / 240 Output Total 1333 / 1333 Balance 720 / 720 240 / 240 -1333 / -1333 Weight 46 kg Intake: Oral 720 / 720 240 / 240 Output: Peritoneal Amount 1333 / 1333 Other: # Voids 2 3 # Bowel Movements 1 <Doretha Ernst - Last Filed: 12/12/17 18:14> Assessment and Plan - Plan End-stage renal disease, on peritoneal dialysis. Continue renvela. Avoid IVF administratin and nephrotoxins. Tolerating PD, continue same PD nightly Pleural effusion and possible pneumonia. Continue antibiotics S/p thoracentesis only 100 ml removed Shortness of breath has improved Anemia HGB at 8.2 Has anemia of chronic disease, will monitor <Ariela Snider - Last Filed: 12/12/17 16:07> - Plan Patient seen and examined, agree with above. Seen by Pulmonary and still with O2. Possible D/C. <Doretha Ernst - Last Filed: 12/12/17 18:14>
--- NOTE | 2017-12-12 19:28 | P.PNPL ---
Subjective Interval history: 57 YOAA female with ESRD,on dialysis with sob Had TC, 100 cc fluid removed Mild sob No Fever Feels weak Physical Exam Vital signs: Vital Signs 12/11/17 20:00 12/11/17 21:06 12/12/17 00:00 Temperature 97.7 F 98 F Pulse Rate 69 73 65 Respiratory Rate 15 22 15 Blood Pressure 119/59 L 119/62 Pulse Oximetry 96 93 L 92 L 12/12/17 00:30 12/12/17 03:45 12/12/17 08:00 Temperature 98.1 F 98.2 F Pulse Rate 64 67 76 Respiratory Rate 18 15 17 Blood Pressure 115/68 131/63 Pulse Oximetry 93 L 97 12/12/17 08:51 12/12/17 08:52 12/12/17 11:58 Temperature Pulse Rate 76 70 Respiratory Rate 17 17 Blood Pressure Pulse Oximetry 98 12/12/17 12:00 12/12/17 15:40 12/12/17 16:00 Temperature 97.5 F L 98.0 F Pulse Rate 76 74 73 Respiratory Rate 18 17 18 Blood Pressure 116/60 118/61 Pulse Oximetry 97 99 Intake & Output 12/12/17 12/12/17 12/13/17 06:59 18:59 06:59 Intake Total 240 / 240 780 / 780 Output Total 1333 / 1333 Balance 240 / 240 -553 / -553 Weight 46 kg Intake: Oral 240 / 240 780 / 780 Output: Peritoneal Amount 1333 / 1333 Other: # Voids 3 GENERAL: thin built AA female, weak SKIN: Warm and dry. HEAD: Normocephalic. EYES: No scleral icterus. No injection or drainage. NECK: Supple, trachea midline. No JVD or lymphadenopathy. CARDIOVASCULAR: Regular rate and rhythm without murmurs, gallops, or rubs. RESPIRATORY: Breath sounds equal bilaterally. No accessory muscle use. GASTROINTESTINAL: Abdomen soft, non-tender, nondistended. MUSCULOSKELETAL: No cyanosis, or edema. BACK: Nontender without obvious deformity. No CVA tenderness. Assessment and Plan - Plan IMPRESSION Pleural effusion Resp insuff ESRD Anemia PLAN: Supplement 02 Aerosol nebs Cont Abx Tessalon 200 mg q 8 hrs
[2017-12-12] MEDS ORDERED: guaiFENesin 600 MG ER Tablet PO SCH (21:00)
[2017-12-12] MEDS: Levofloxacin 500 mg Premix Inj 500 MG/100 ML PIGGYBACK IV.SIG SCH (22:26)
[2017-12-12] MEDS ORDERED: Benzonatate 100 MG Capsule PO PRN (23:00)
[2017-12-13 08:51] VITALS: BP 128/60; PULSE 80; RESP 14; TEMP 98.9
[2017-12-13 08:56] LABS: Hematocrit 26.2 % (35.0-46.0); Hemoglobin 8.2 gm/dL (11.6-15.3); Mean Corpuscular HGB Conc 31.5 % (32.0-36.0); Mean Corpuscular Hemoglobin 23.7 pg (27.0-34.0); Mean Corpuscular Volume 75.2 fL (80.0-100.0); Mean Platelet Volume 9.8 fL (7.0-11.0); Platelet Count 74 th/mm3 (150-450); Red Blood Count 3.48 mil/mm3 (4.00-5.30); Red Cell Distribution Width 27.9 % (11.6-17.2); White Blood Count 9.8 th/mm3 (4.0-11.0)
[2017-12-13 09:19] LABS: Calcium 8.3 mg/dL (8.5-10.1); Carbon Dioxide 28.9 meq/L (21.0-32.0); Potassium 4.2 meq/L (3.5-5.1)
[2017-12-13] MEDS: Vitamin B Complex/Vit C/Folic Tablet PO SCH (09:59)
[2017-12-13] MEDS: Senna/Docusate Sodium 8.6/50 MG Tablet PO SCH (09:59)
[2017-12-13] MEDS: amLODIPine 10 MG Tablet PO SCH (10:00)
[2017-12-13] MEDS: Metoprolol Tartrate 25 MG Tablet PO SCH (10:00)
[2017-12-13 10:58] VITALS: O2SAT 97
--- NOTE | 2017-12-13 11:11 | P.DCO ---
- Physical Therapy Order: Evaluate and treat, Improve ambulation, Strength and gait training - Home Health Nursing Order: Medical education, Signs/symptoms of disease process, CHF education, Oxygen administration education, Medication education-adverse effect, Nursing assessment with vital signs - Certification I have seen patient Barb Garvin on 12/13/17. My clinical findings support the need for the requested home health care services because: Limited mobility due to disease progression, Patient has SOB, Deconditioned with increased weakness I certify that my clinical findings support that this patient is homebound because: Unsafe to leave home unassisted
--- NOTE | 2017-12-13 11:13 | P.DS ---
Date of admission: 12/09/17 11:58 Primary care physician: Neftali Chisholm III, MD Anticipated date of discharge: 12/13/17 Brief History from admission: This is a 57-year-old female with a PMH of HTN, ESRD on PD, Recurrent Pleural Effusions, O2 Dependent and CHF (Echo 01/08/17 w/ EF 40-45%) who was referred to the ER by her Pastry Assistant for c/o ongoing SOB. States she was started on Home O2 approx 2wks ago by her Pastry Assistant. Notes ongoing SOB w/ exertion despite O2 in addition to non-productive cough. Denies fever, chills or chest pain. On arrival, BP 179/84, HR 70, O2 sat 97% on 2L NC, Afebrile. WBC 11.7. INR 1.1. Creatinine 15.84, BNP 1002. CXR with no significant change, bilateral effusions and dense airspace disease remain. CT Chest with bilateral mild pleural effusions, larger on the left, right effusion appears complex with thickening on the right side, left lower lobe consolidation or atelectasis. Pt w/ h/o Pleural effusions requiring chest tube placement in the past. DS: Diagnosis - Discharge Diagnosis (1) Pleural effusion Status: Acute (2) Fluid overload Status: Acute (3) CHF (congestive heart failure) Status: Acute (4) ESRD (end stage renal disease) on dialysis Status: Acute (5) PNA (pneumonia) Status: Acute DS: Medications - Discharge Medications Prescriptions: amlodipine [Norvasc] 10 mg PO DAILY #30 tab benzonatate [Tessalon Perles] 200 mg PO Q8H PRN 7 Days cap PRN Reason: Cough guaifenesin [Mucinex] 1,200 mg PO BID 7 Days #28 tab ipratropium-albuterol 1 amp NEB Q2HR NEB PRN 30 Days ml PRN Reason: Dyspnea levofloxacin [Levaquin] 500 mg PO Q48H 1 Days tab DS: Summary Hospital Course: Acute on chronic systolic CHF Echo 01/08/17 w/ EF 40-45%. BNP 1004. CXR with stable bilateral effusions. We monitored I/Os. She was continued on a beta-ivis. She received volume management with dialysis. Case management was consulted. The pt will be discharged with home health care. Pleural effusions/ PNA H/o pleural effusions requiring chest tube. CT Chest w/ bilateral pleural effusions, likely complex collection on right, LLL infiltrate. Status post thoracentesis. No organism on gram stain. Pleural studies indicated transudate. We consulted pulmonology. She was continued on Levaquin. She was started on nebs. We added guaifenesin and Tessalon Perles. She will complete a course of Levaquin. She will use nebs as needed. She will follow up with pulmonology as an outpt. ESRD on Dialysis Follows w/ Dr. Ernst, on PD nightly. We continued dialysis per nephrology. She will resume her PD upon discharge. - Time Spent with Patient Total time spent providing and/or coordinating discharge services: Greater than 30 minutes - Quality: VTE Deep Vein Thrombosis/Pulmonary Embolism Present on Admission: No Exam Vital signs: Vital Signs 12/12/17 11:58 12/12/17 12:00 12/12/17 15:40 Temperature 97.5 F L Pulse Rate 70 76 74 Respiratory Rate 17 18 17 Blood Pressure 116/60 Pulse Oximetry 97 12/12/17 16:00 12/12/17 20:00 12/12/17 21:15 Temperature 98.0 F 97.8 F Pulse Rate 73 78 81 Respiratory Rate 18 18 16 Blood Pressure 118/61 124/62 Pulse Oximetry 99 96 92 L 12/13/17 00:00 12/13/17 04:00 12/13/17 08:00 Temperature 97.7 F 98.2 F 98.9 F Pulse Rate 102 H 75 80 Respiratory Rate 18 18 14 Blood Pressure 113/65 125/63 128/60 Pulse Oximetry 99 95 100 12/13/17 08:17 Temperature Pulse Rate Respiratory Rate Blood Pressure Pulse Oximetry 97 Intake & Output 12/12/17 12/13/17 12/13/17 18:59 06:59 18:59 Intake Total 780 / 780 100 / 100 Output Total 1333 / 1333 1347 / 1347 Balance -553 / -553 100 / 100 -1347 / -1347 Intake: IV 100 / 100 Levaquin 500 mg Premix Inj 500 100 / 100 mg In 100 ml @ 100 mls/hr IV. SIG Q48H [facility] Rx#:[id number] Oral 780 / 780 Output: Peritoneal Amount 1333 / 1333 Hemodialysis Amount 1347 / 1347 Narrative: GENERAL: Thin middle-aged female in no acute distress. HEENT: NC, AT. CARDIOVASCULAR: Regular rate and rhythm. No obvious murmurs. RESPIRATORY: Crackles at the right base. GASTROINTESTINAL: Abdomen soft, non-tender, nondistended. BS normal. MUSCULOSKELETAL: Extremities without clubbing, cyanosis, or edema. No obvious deformities. NEUROLOGICAL: Awake, alert and oriented x4. No focal neurologic deficits. Moving both upper and lower extremities spontaneously. Results Procedures completed during hospitalization: Diagnostic thoracentesis Labs on day of discharge: Labs from last 24 hours 12/13/17 12/13/17 08:27 08:27 WBC 9.8 RBC 3.48 L Hgb 8.2 L Hct 26.2 L MCV 75.2 L MCH 23.7 L MCHC 31.5 L RDW 27.9 H Plt Count 74 L MPV 9.8 Sodium 135 L Potassium 4.2 Chloride 95 L Carbon Dioxide 28.9 Anion Gap 11 BUN 66 H Creatinine 14.83 H* Estimated GFR 3 L Random Glucose 94 Calcium 8.3 L - Impressions ITS Impressions Chest CT 12/08/17 17:29 CONCLUSION: 1. Bilateral mild pleural effusions being larger on the left. The right effusion appears complex superiorly. There is some thickening of the pleural on the right side. 2. Areas of subpleural density seen in the lateral right upper lobe and right lower lobe. These could represent areas of consolidation, mass, or atelectasis. Round atelectasis is posterior with pleural disease could have a similar appearance. 3. Left lower lobe consolidation or atelectasis. 4. Cardiomegaly. There appears to be enlargement of all the chambers. Chest X-Ray 12/09/17 00:00 CONCLUSION: Improvement on the right fundus thoracentesis without pneumothorax Dense consolidative changes persist in both lungs. Thoracentesis Ultrasound 12/09/17 00:00 CONCLUSION: 1. Uncomplicated thoracentesis Discharge Plan - Discharge Disposition Patient Disposition: /Home Health Service - Discharge Condition Condition: Stable - Discharge Order Discharge Orders: Discharge Order (Routine); Ordered 12/13/17 Ordered By: Riccardo Sarmiento - Discharge Details Anticipated Discharge Date: 12/13/17 - Physicians Team Primary Care Provider: Neftali Chisholm III Attending Provider: Riccardo Sarmiento Other Providers: Doretha Ernst MD ; Thalia Vásquez MD ; Roel Calle MD
--- NOTE | 2017-12-13 18:33 | P.PNNP ---
Subjective Interval history: Patient seen in AM, with nasal cannula, not in distress. Physical Exam Vital signs: Vital Signs 12/12/17 20:00 12/12/17 21:15 12/13/17 00:00 Temperature 97.8 F 97.7 F Pulse Rate 78 81 102 H Respiratory Rate 18 16 18 Blood Pressure 124/62 113/65 Pulse Oximetry 96 92 L 99 12/13/17 04:00 12/13/17 08:00 12/13/17 08:17 Temperature 98.2 F 98.9 F Pulse Rate 75 80 Respiratory Rate 18 14 Blood Pressure 125/63 128/60 Pulse Oximetry 95 100 97 Intake & Output 12/12/17 12/13/17 12/13/17 18:59 06:59 18:59 Intake Total 780 / 780 100 / 100 Output Total 1333 / 1333 1347 / 1347 Balance -553 / -553 100 / 100 -1347 / -1347 Intake: IV 100 / 100 Levaquin 500 mg Premix Inj 500 100 / 100 mg In 100 ml @ 100 mls/hr IV. SIG Q48H [facility] Rx#:[id number] Oral 780 / 780 Output: Peritoneal Amount 1333 / 1333 Hemodialysis Amount 1347 / 1347 Narrative: GENERAL: Thin middle-aged female in no acute distress. HEENT: NC, AT. CARDIOVASCULAR: Regular rate and rhythm. No obvious murmurs. RESPIRATORY: Crackles at the right base. GASTROINTESTINAL: Abdomen soft, non-tender, nondistended. BS normal. MUSCULOSKELETAL: Extremities without clubbing, cyanosis, or edema. No obvious deformities. NEUROLOGICAL: Awake, alert and oriented x4. No focal neurologic deficits. Moving both upper and lower extremities spontaneously. Assessment and Plan - Plan End-stage renal disease, on peritoneal dialysis. Continue renvela. Avoid IVF administration and nephrotoxins. Tolerating PD, continue same PD nightly. Patient for discharge to continue PD. Pleural effusion and possible pneumonia. Continue antibiotics S/p thoracentesis only 100 ml removed Shortness of breath has improved Anemia HGB at 8.2 Has anemia of chronic disease, will monitor
== END 2017-12-13 12:10 | disposition home health service (06) ==
LOC: NEPE 16:12 → NEDA 16:12 → NEPGCP 20:31 → N07 12-10 11:20
PROVIDERS: ADMIT Hospitalist; ATTEND Hospitalist

== ENCOUNTER 2018-02-15 14:37 | Inpatient (IN) ==
--- NOTE | 2018-02-15 14:55 | ED ---
HPI General Chief Complaint: Respiratory Symptoms Stated Complaint: SOB Time Seen by Provider: 02/15/18 14:45 Source: patient and family Mode of arrival: wheelchair Limitations: no limitations History of Present Illness 57-year-old female with a history of CHF, ESRD, dialysis patient presents to the ED for evaluation of worsening shortness of breath. Patient gets peritoneal dialysis every night. She has a history of fluid overload and has had to have drainage from her lung fluid. Per patient she is been more short of breath for the past week and she went to her dialysis center and they told her to come here to get evaluated. She is oxygen at home. She denies any chest pain. No pain of any kind. No abdominal pain. No fevers chills or sweats. She states that overall she only complains of shortness of breath and gets worse with exertion but also with just sitting and laying down. No urinary or bowel movement issues. Patient does not make any urine. She states that she is compliant with her dialysis and she had it done yesterday. She usually gets it done at night. Related Data Home Medications Medication Instructions Recorded Confirmed B complex-vitamin C-folic acid 1 tab PO DAILY 12/08/17 02/15/18 [Nephro-Brenden] metoprolol tartrate 50 mg PO BID 12/08/17 02/15/18 sevelamer carbonate [Renvela] 2,400 mg PO TID 12/08/17 02/15/18 Previous Rx's Medication Instructions Recorded amlodipine [Norvasc] 10 mg PO DAILY #30 tab 12/13/17 Allergies Allergy/AdvReac Type Severity Reaction Status Date / Time No Known Allergies Allergy Unverified 02/15/18 15:32 Review of Systems ROS: all other systems reviewed are negative PMFSH History History Provided By: Patient and Family Member Medical History Medical History Hypertension (Acute) Dialysis patient (Acute) Pleural effusion (Acute) Social History Social History Substance History: No History of Abuse Second Hand Smoke Exposure: No Smoking Status: Never smoker How Often Do You Have a Drink Containing Alcohol: Never Recent Travel in [facility] within the Last 8 Weeks: No Recent Out of Country Travel within the Last 8 Weeks: No Exam Narrative Exam Narrative: GENERAL: Well appearing SKIN: Focused skin assessment warm/dry. HEAD: Atraumatic. Normocephalic. EYES: Pupils equal and round. No scleral icterus. No injection or drainage. ENT: No nasal bleeding or discharge. Mucous membranes pink and moist. Tongue is midline. No uvula deviation. NECK: Trachea midline. No JVD. CARDIOVASCULAR: Regular rate and rhythm. No murmur appreciated. RESPIRATORY: No accessory muscle use. Rales heard in the upper lung sun but she does have some diminished breath sounds on the lower lung sun. Breath sounds equal bilaterally. GASTROINTESTINAL: Abdomen soft, non-tender, nondistended. Hepatic and splenic margins not palpable. MUSCULOSKELETAL: No obvious deformities. No clubbing. No cyanosis. No edema. Full range of motion of the upper and lower extremities bilaterally. 2+ pulses bilaterally. NEUROLOGICAL: Awake and alert. No obvious cranial nerve deficits. Motor grossly within normal limits. Normal speech. PSYCHIATRIC: Appropriate mood and affect; insight and judgment normal. Course Initial Documented Vital Signs Temperature 97.9 F 02/15/18 14:39 Pulse Rate 66 02/15/18 14:39 Respiratory Rate 22 02/15/18 14:39 Blood Pressure 147/65 H 02/15/18 14:39 Pulse Oximetry 86 L 02/15/18 14:39 Last Documented Vital Signs Temperature 98.5 F 02/15/18 14:56 Pulse Rate 63 02/15/18 16:13 Respiratory Rate 16 02/15/18 16:13 Blood Pressure 147/63 H 02/15/18 16:13 Pulse Oximetry 93 L 02/15/18 16:13 Medical Decision Making AN Attestation AN supervised visit: Yes Attestation: I, Dr. Guerin, have reviewed the advance practice practitioner's documentation and am in agreement, met with the patient face to face, made the diagnosis, and the medical decision making was done by me. *My assessment and Findings: End-stage renal disease on peritoneal dialysis. The patient will be admitted for emergent peritoneal dialysis. Elevated troponin likely secondary to end-stage renal disease and not due to occlusive coronary disease. EKG shows sinus rhythm with left axis deviation no acute ischemic injury pattern. Pt will be admitted to [facility] service. MDM Narrative Medical decision making narrative: 57-year-old female that presents to the ED for evaluation of shortness of breath. Patient was properly examined and was found to have signs and symptoms concerning for pleural effusion. Labs and imaging ordered. Labs and imaging did show what appears to be CHF, acute on chronic kidney disease as well as pleural effusions bilaterally and positive troponin. I suspect that the troponin is likely secondary to the patient's ESRD. Recommend trending this as there is no obvious records of this being high before. In regards to the reason patient is here which is the shortness of breath to believe that the patient is likely having fluid overload secondary to pleural effusions and causing the shortness of breath. Patient already on oxygen and even with oxygen she still feels short of breath. Recommendation is for likely admission for thoracocentesis versus more dialysis. Case discussed with my attending Dr. Guerin who agrees with plan. Case discussed with Dr. Emerson who agrees with plan. Medical Screen Exam Complete: Yes Emergency Medical Condition: Yes Differential Diagnosis Differential Diagnosis: CHF extubation versus pleural effusion versus pneumonia versus ESRD Medical Records Medical records reviewed: Yes I reviewed the patient's medical records. Lab Data Lab results reviewed: Yes I reviewed the patient's lab results. Lab results narrative: troponin positive BNP in the 1000s Result diagrams: 02/15/18 15:00 02/15/18 15:00 Lab Results 02/15/18 02/15/18 02/15/18 Range/Units 15:00 15:00 15:00 WBC 10.6 (4.0-11.0) th/mm3 RBC 4.96 (4.00-5.30) mil/mm3 Hgb 11.7 (11.6-15.3) gm/dL Hct 36.3 (35.0-46.0) % MCV 73.3 L (80.0-100.0) fL MCH 23.6 L (27.0-34.0) pg MCHC 32.2 (32.0-36.0) % RDW 27.3 H (11.6-17.2) % Plt Count 154 (150-450) th/mm3 MPV 8.8 (7.0-11.0) fL Prelim Diff (Auto) Slide review pending Neut % (Auto) 78.7 H (16.0-70.0) % Lymph % (Auto) 8.5 L (9.0-44.0) % [place] % (Auto) 8.2 H (0.0-8.0) % Eos % (Auto) 3.7 (0.0-4.0) % Baso % (Auto) 0.9 (0.0-2.0) % Neut # (Auto) 8.3 H (1.8-7.7) th/mm3 Lymph # (Auto) 0.9 L (1.0-4.8) th/mm3 [place] # (Auto) 0.9 (0.0-0.9) th/mm3 Eos # (Auto) 0.4 (0.0-0.4) th/mm3 Baso # (Auto) 0.1 (0.0-0.2) th/mm3 WBC Differential . Diff Scan Auto diff confirmed Differential Comment . Platelet Estimate Normal (Normal) Platelet Morphology Normal (Normal) Tear Drop Cells 1+ H (None) Ovalocytes 1+ H (None) PT 11.5 (9.8-11.6) sec INR 1.1 Ratio APTT 28.3 (24.3-30.1) sec Sodium 133 L (136-145) meq/L Potassium 3.6 (3.5-5.1) meq/L Chloride 91 L (98-107) meq/L Carbon Dioxide 26.5 (21.0-32.0) meq/L Anion Gap 16 H (5-15) meq/L BUN 95 H (7-18) mg/dL Creatinine 13.78 H* (0.50-1.00) mg/dL Estimated GFR 3 L (>89) mL/min Random Glucose 108 H (74-106) mg/dL Calcium 9.0 (8.5-10.1) mg/dL Magnesium 4.2 H (1.5-2.5) mg/dL Total Bilirubin 0.6 (0.2-1.0) mg/dL AST 21 (15-37) U/L ALT 21 (10-53) U/L Alkaline Phosphatase 113 (45-117) U/L Total Creatine Kinase 72 (26-192) U/L Troponin I 0.13 H (0.02-0.05) ng/mL B-Natriuretic Peptide (0-100) pg/mL Total Protein 8.6 H (6.4-8.2) g/dL Albumin 3.1 L (3.4-5.0) g/dL 02/15/18 Range/Units 15:00 WBC (4.0-11.0) th/mm3 RBC (4.00-5.30) mil/mm3 Hgb (11.6-15.3) gm/dL Hct (35.0-46.0) % MCV (80.0-100.0) fL MCH (27.0-34.0) pg MCHC (32.0-36.0) % RDW (11.6-17.2) % Plt Count (150-450) th/mm3 MPV (7.0-11.0) fL Prelim Diff (Auto) Neut % (Auto) (16.0-70.0) % Lymph % (Auto) (9.0-44.0) % [place] % (Auto) (0.0-8.0) % Eos % (Auto) (0.0-4.0) % Baso % (Auto) (0.0-2.0) % Neut # (Auto) (1.8-7.7) th/mm3 Lymph # (Auto) (1.0-4.8) th/mm3 [place] # (Auto) (0.0-0.9) th/mm3 Eos # (Auto) (0.0-0.4) th/mm3 Baso # (Auto) (0.0-0.2) th/mm3 WBC Differential Diff Scan Differential Comment Platelet Estimate (Normal) Platelet Morphology (Normal) Tear Drop Cells (None) Ovalocytes (None) PT (9.8-11.6) sec INR Ratio APTT (24.3-30.1) sec Sodium (136-145) meq/L Potassium (3.5-5.1) meq/L Chloride (98-107) meq/L Carbon Dioxide (21.0-32.0) meq/L Anion Gap (5-15) meq/L BUN (7-18) mg/dL Creatinine (0.50-1.00) mg/dL Estimated GFR (>89) mL/min Random Glucose (74-106) mg/dL Calcium (8.5-10.1) mg/dL Magnesium (1.5-2.5) mg/dL Total Bilirubin (0.2-1.0) mg/dL AST (15-37) U/L ALT (10-53) U/L Alkaline Phosphatase (45-117) U/L Total Creatine Kinase (26-192) U/L Troponin I (0.02-0.05) ng/mL B-Natriuretic Peptide 1017 H (0-100) pg/mL Total Protein (6.4-8.2) g/dL Albumin (3.4-5.0) g/dL Imaging Data Attestation: I personally reviewed and interpreted this imaging study as follows : Radiologist's impression: Chest X-Ray 02/15/18 14:49 CONCLUSION: 1. Cardiomegaly. 2. Moderate-sized bilateral pleural effusions. 3. Mild pulmonary vascular congestion bilaterally. 4. Bibasilar patchy consolidations. ECG Data Attestation: I personally reviewed and interpreted this ECG as follows: Interpretation: EKG shows sinus rhythm with no sign of acute ischemia and arrhythmia read by me and attending. Discharge Plan Discharge Disposition Patient Disposition: 30 Still Patient Discharge Details Diagnosis: Pleural effusion, Fluid overload, Dialysis patient, CHF (congestive heart failure) Physicians Team ED Provider: Mani Guerin ED Midlevel Provider: Romel Rudd Primary Care Provider: Neftali Chisholm III Attending Provider: Joaquim Emerson Other Providers: Doretha Ernst Status ED Status: Admitted Observation Patient
[2018-02-15 15:16] LABS: Baso # (Auto) 0.1 th/mm3 (0.0-0.2); Baso % (Auto) 0.9 % (0.0-2.0); Eos # (Auto) 0.4 th/mm3 (0.0-0.4); Eos % (Auto) 3.7 % (0.0-4.0); Hematocrit 36.3 % (35.0-46.0); Hemoglobin 11.7 gm/dL (11.6-15.3); Lymph # (Auto) 0.9 th/mm3 (1.0-4.8); Lymph % (Auto) 8.5 % (9.0-44.0); Mean Corpuscular HGB Conc 32.2 % (32.0-36.0); Mean Corpuscular Hemoglobin 23.6 pg (27.0-34.0); Mean Corpuscular Volume 73.3 fL (80.0-100.0); Mean Platelet Volume 8.8 fL (7.0-11.0); Mono # (Auto) 0.9 th/mm3 (0.0-0.9); Mono % (Auto) 8.2 % (0.0-8.0); Neut # (Auto) 8.3 th/mm3 (1.8-7.7); Neut % (Auto) 78.7 % (16.0-70.0); Platelet Count 154 th/mm3 (150-450); Red Blood Count 4.96 mil/mm3 (4.00-5.30); Red Cell Distribution Width 27.3 % (11.6-17.2); White Blood Count 10.6 th/mm3 (4.0-11.0)
[2018-02-15 15:26] LABS: Activated Partial Thrombo Time 28.3 sec (24.3-30.1); INR 1.1 Ratio; Prothrombin Time 11.5 sec (9.8-11.6)
[2018-02-15 15:32] LABS: Alanine Aminotransferase 21 U/L (10-53); Albumin 3.1 g/dL (3.4-5.0); Anion Gap 16 meq/L (5-15); Aspartate Aminotransferase 21 U/L (15-37); Blood Urea Nitrogen 95 mg/dL (7-18); Carbon Dioxide 26.5 meq/L (21.0-32.0); Chloride 91 meq/L (98-107); Glomerular Filtration Rate 3 mL/min (>89); Glucose,Random 108 mg/dL (74-106); Magnesium 4.2 mg/dL (1.5-2.5); Potassium 3.6 meq/L (3.5-5.1); Sodium 133 meq/L (136-145)
[2018-02-15 15:36] LABS: Alkaline Phosphatase 113 U/L (45-117); Total Protein 8.6 g/dL (6.4-8.2); Troponin I 0.13 ng/mL (0.02-0.05)
[2018-02-15 15:41] LABS: Creatine Kinase 72 U/L (26-192); Ovalocytes 1+; Platelet Estimate Normal (Normal); Platelet Morphology Normal (Normal); Tear Drop Cells 1+
--- NOTE | 2018-02-15 15:46 | XR ---
EXAM DATE: 02/15/2018 2:49 PM EDT AGE/SEX: 57 years / Female INDICATIONS: . Short of breath. CLINICAL DATA: This is the patient's initial encounter. Patient reports that signs and symptoms have been present for 1 month and indicates a pain score of 3/10. MEDICAL/SURGICAL HISTORY: . Chronic renal failure, dialysis, pleural effusion, Carcinoma, breas t None. COMPARISON: [facility] [place], CHEST EXPIRATION ONLY, 12/09/2017. . FINDINGS: The heart is enlarged. Mild pulmonary vascular congestion is noted bilaterally. Moderate-sized bilate ral pleural effusions are noted. Bibasilar patchy consolidations are noted. Degenerative changes and scoliosis of the thoracolumbar spine are noted. CONCLUSION: 1. Cardiomegaly. 2. Moderate-sized bilateral pleural effusions. 3. Mild pulmonary vascular congestion bilaterally. 4. Bibasilar patchy consolidations. Electronically signed by: Jamil Morales MD 02/15/2018 3:44 PM EDT
[2018-02-15] MEDS ORDERED: Bisacodyl 10 MG Supp RECTAL PRN (16:13)
[2018-02-15] MEDS ORDERED: Heparin 10,000 UNITS/10 ML Vial (for IV use) OTHER PRN (17:23)
--- NOTE | 2018-02-15 17:48 | MB ---
cc: Doretha Ernst MD DATE: 02/15/2018 REASON FOR CONSULTATION: End-stage renal disease, on peritoneal dialysis, for management. HISTORY OF PRESENT ILLNESS: This is a 57-year-old old female known to me from before with a past medical history of ischemic heart disease, congestive heart failure, history of recurrent pleural effusion, history of breast cancer, chronic anemia, end-stage renal disease, on peritoneal dialysis 3 times per week. Came to the hospital because of worsening shortness of breath and dry cough. I was called to see the patient for the management of peritoneal dialysis. The patient has been on peritoneal dialysis. She was on hemodialysis before. She has been using 1.5% and 2.5% solution and there is no problem with fluid and the fluid is clear. She does not have any abdominal pain. She has this worsening shortness of breath, more with exertion and has dry cough, which would get worse when she lies flat. The last time admitted was in 07/2017, and at that time she had the same problem with pleural effusion. She denies any nausea or vomiting. She has some history of weight loss, but now is kind of stable. PAST MEDICAL HISTORY: Ischemic heart disease, congestive heart failure, chronic anemia, history of breast cancer, end-stage renal disease on peritoneal dialysis, history of recurrent pleural effusion. PAST SURGICAL HISTORY: History of PD catheter placement, [id number] placement. REVIEW OF SYSTEMS: The patient has some history of weight loss, but has been stable now. She denies any nausea or vomiting. She has gradual worsening of shortness of breath more with exertion. Has a cough which is mainly dry, more with lying flat. There is no chest pain. No history of fever. No headache or dizziness. No history of diarrhea. SOCIAL HISTORY: The patient is single. She lives with her mother. There is no history of smoking or heavy alcoholism. FAMILY HISTORY: Noncontributory. ALLERGIES: SHE HAS NO KNOWN DRUG ALLERGIES. MEDICATIONS: Currently, she is on: 1. Lopressor 50 mg b.i.d. 2. Lactulose 30 mL p.r.n. 3. Dulcolax p.r.n. 4. Norvasc 10 mg once a day. 5. Nephrocaps 1 daily. PHYSICAL EXAMINATION: GENERAL: The patient is awake, alert. She is in mild respiratory distress. VITAL SIGNS: Blood pressure is 170/83, temperature is 98.5, oxygen saturation on 4 liters nasal cannula is 93%-97%. HEENT: Pupils are constricted. Nonicteric sclerae. Conjunctivae are pale. NECK: Supple. JVD is slightly elevated. LUNGS: The patient has bilateral decreased air entry, more on the right side with some basilar rales. HEART: S1, S2. Regular rhythm. ABDOMEN: Distended, soft, lax. PD catheter in place. There is no tenderness. Bowel sounds positive. EXTREMITIES: She has mild edema in the legs. INVESTIGATIONS: WBC count is 10.6, hemoglobin 11.7, platelet count of 154, neutrophils 78.7%. INR is 1.1. Sodium is 133, potassium 3.6, chloride 91, bicarbonate 26.5, BUN 95, creatinine 13.78, calcium is 9.0, magnesium is 4.2. AST, ALT normal. Troponin is 0.13, albumin 3.1, total protein is 8.6. BNP is 1017. IMAGING STUDIES: The patient had no recent imaging study done. ASSESSMENT AND PLAN: 1. Recurrent pleural effusion. 2. Shortness of breath and fluid overload status. 3. End-stage renal disease, on peritoneal dialysis. 4. Hypertension. 5. Mild anemia. The patient has been on peritoneal dialysis, and I will start her on peritoneal dialysis tonight. Will use 2 green bags to try to get more fluid out. She possibly will need a thoracentesis if she has significant pleural effusion. Thank you for the consultation and I will follow the patient while she is in the hospital. MD ROYAL Kwan/bernardo , 05:23 PM , 05:35 PM
--- NOTE | 2018-02-15 19:56 | P.HPIM ---
History of Present Illness Primary Care Physician: Neftali Chisholm III, MD History of Present Illness: 57-year-old female with a history of systolic CHF, EF most recently 40-45% 1 year ago, recurrent bilateral pleural effusions. End-stage renal disease, on peritoneal dialysis who presents with a one-week history of progressively worsening shortness of breath both at rest and with exertion. She reports a chronic cough productive of white sputum which not changed. sHe denies any fevers, chills, chest pain, shortness of breath. She denies any nausea or vomiting. Denies any chest pain. Denies any peripheral edema. Denies orthopnea. She reports being compliant with her peritoneal dialysis. Denies any recent medication changes. Review of Systems All other systems reviewed negative except as stated in HPI PMFSH - History History Provided By: Patient, Family Member - Medical History Medical History: Medical History (Last Updated 02/15/18 @ 19:51 by Joaquim Emerson MD) AVF (arteriovenous fistula) Hypertension Dialysis patient Pleural effusion - Surgical History Surgical History: Surgical History (Last Updated 02/15/18 @ 19:51 by Joaquim Emerson MD) H/O chest tube placement - Family History Family History: Family History (Last Updated 02/15/18 @ 19:51 by Joaquim Emerson MD) Other Family history non-contributory - Tobacco History Second Hand Smoke Exposure: No Smoking Status: Never smoker - Alcohol History How Often Do You Have a Drink Containing Alcohol: Never - Substance Use History Substance History: No History of Abuse - Travel History Recent Travel in the [place] Within the Last 8 Weeks: No Recent Travel Out of the Country Within the Last 8 Weeks: No - Immunization History Tetanus Immunization: Unsure Hx Influenza Vaccine This Season: No Medications and Allergies Active Medications: Active Medications Amlodipine Besylate (Norvasc) 10 mg PO DAILY ADARSH Bisacodyl (Dulcolax Supp) 10 mg RECTAL DAILY PRN PRN Reason: SEVERE CONSITIPATION Heparin Sodium (Porcine) (Heparin Inj) 1,000 units OTHER WITH DIALYSIS PRN PRN Reason: SEE LABEL COMMENTS Lactulose (Lactulose Liq) 30 ml PO DAILY PRN PRN Reason: SEVERE CONSITIPATION Metoprolol Tartrate (Lopressor) 50 mg PO BID ADARSH Sennosides (Senokot) 17.2 mg PO Q12H PRN PRN Reason: Moderate Constipation Sodium Chloride (Ns Flush) 10 ml IV.FLUSH UNSCH PRN PRN Reason: SEE LABEL COMMENTS Vitamin B Complex/Vit C/Folic Acid (Nephrocaps) 1 tab PO DAILY ADARSH Allergies Allergy/AdvReac Type Severity Reaction Status Date / Time No Known Allergies Allergy Unverified 02/15/18 15:32 Home Medications Medication Instructions Recorded Confirmed Type B complex-vitamin C-folic acid 1 tab PO DAILY 12/08/17 02/15/18 History [Nephro-Brenden] metoprolol tartrate 50 mg PO BID 12/08/17 02/15/18 History sevelamer carbonate [Renvela] 2,400 mg PO TID 12/08/17 02/15/18 History Exam Vital signs: Vital Signs 02/15/18 14:39 02/15/18 14:49 02/15/18 14:56 Temperature 97.9 F 98.5 F Pulse Rate 66 64 Respiratory Rate 22 20 Blood Pressure 147/65 H 170/83 H Pulse Oximetry 86 L 93 L 97 02/15/18 16:13 02/15/18 19:08 Temperature Pulse Rate 63 Respiratory Rate 16 Blood Pressure 147/63 H Pulse Oximetry 93 L 93 L Intake & Output 02/15/18 02/15/18 02/16/18 06:59 18:59 06:59 Weight 45.813 kg Narrative: GENERAL: Patient sitting up in bed. Appears comfortable. Mild shortness of breath at rest. SKIN: Warm and dry. Left upper extremity AV fistula without any signs of infection. HEAD: Atraumatic. Normocephalic. EYES: Pupils equal and round. No scleral icterus. No injection or drainage. ENT: No nasal bleeding or discharge. Mucous membranes pink and moist. NECK: Trachea midline. No JVD. CARDIOVASCULAR: Regular rate and rhythm. RESPIRATORY: No accessory muscle use. Clear to auscultation. Breath sounds equal bilaterally. GASTROINTESTINAL: Abdomen soft, non-tender, nondistended. Hepatic and splenic margins not palpable. Peritoneal dialysis catheter MUSCULOSKELETAL: Extremities without clubbing, cyanosis, or edema. No obvious deformities. NEUROLOGICAL: Awake and alert. No obvious cranial nerve deficits. Motor grossly within normal limits. Five out of 5 muscle strength in the arms and legs. Normal speech. PSYCHIATRIC: Appropriate mood and affect; insight and judgment normal. Results - Labs CBC & Chem 7: 02/15/18 15:00 02/15/18 15:00 Labs: Short CBC 02/15/18 Range/Units 15:00 WBC 10.6 (4.0-11.0) th/mm3 Hgb 11.7 (11.6-15.3) gm/dL Hct 36.3 (35.0-46.0) % Plt Count 154 (150-450) th/mm3 BMP 02/15/18 15:00 Sodium 133 L Potassium 3.6 Chloride 91 L Carbon Dioxide 26.5 BUN 95 H Creatinine 13.78 H* Calcium 9.0 Cardiac Enzymes 02/15/18 Range/Units 15:00 Total Creatine Kinase 72 (26-192) U/L Troponin I 0.13 H (0.02-0.05) ng/mL Liver Function 02/15/18 Range/Units 15:00 Total Bilirubin 0.6 (0.2-1.0) mg/dL AST 21 (15-37) U/L ALT 21 (10-53) U/L Alkaline Phosphatase 113 (45-117) U/L Albumin 3.1 L (3.4-5.0) g/dL - Imaging Impressions Chest X-Ray 02/15/18 14:49 CONCLUSION: 1. Cardiomegaly. 2. Moderate-sized bilateral pleural effusions. 3. Mild pulmonary vascular congestion bilaterally. 4. Bibasilar patchy consolidations. Caprini VTE Risk Assessment Caprini VTE Risk Assessment: Moderate/High Risk (score >= 2) Caprini Risk Assessment Model: Point Value = 1 Point Value = 2 Point Value = 3 Point Value = 5 Age 41-60 Minor surgery BMI > 25 kg/m2 Swollen legs Varicose veins or History of unexplained or recurrent spontaneous Oral contraceptives or hormone replacement Sepsis (< 1 month) Serious lung disease, including pneumonia (< 1 month) Abnormal pulmonary function Acute myocardial infarction Congestive heart failure (< 1 month) History of inflammatory bowel disease Medical patient at bed rest Age 61-74 Arthroscopic surgery Major open surgery (> 45 min) Laparoscopic surgery (> 45 min) Malignancy Confined to bed (> 72 hours) Immobilizing plaster cast Central venous access Age >= 75 History of VTE Family history of VTE Factor V Leiden Prothrombin [id number] Lupus anticoagulant Anticardiolipin antibodies Elevated serum homocysteine Heparin-induced thrombocytopenia Other congenital or acquired thrombophilia Stroke (< 1 month) Elective arthroplasty Hip, pelvis, or leg fracture Acute spinal cord injury (< 1 month) Prophylaxis Regimen: Total Risk Factor Score Risk Level Prophylaxis Regimen 0-1 Low Early ambulation 2 Moderate Order ONE of the following: *Sequential Compression Device (SCD) *Heparin 5000 units SQ BID 3-4 Higher Order ONE of the following medications: *Heparin 5000 units SQ TID *Enoxaparin/Lovenox 40 mg SQ daily (WT < 150 kg, CrCl > 30 mL/min) *Enoxaparin/Lovenox 30 mg SQ daily (WT < 150 kg, CrCl > 10-29 mL/min) *Enoxaparin/Lovenox 30 mg SQ BID (WT < 150 kg, CrCl > 30 mL/min) AND/OR *Sequential Compression Device (SCD) 5 or more Highest Order ONE of the following medications: *Heparin 5000 units SQ TID (Preferred with Epidurals) *Enoxaparin/Lovenox 40 mg SQ daily (WT < 150 kg, CrCl > 30 mL/min) *Enoxaparin/Lovenox 30 mg SQ daily (WT < 150 kg, CrCl > 10-29 mL/min) *Enoxaparin/Lovenox 30 mg SQ BID (WT < 150 kg, CrCl > 30 mL/min) AND *Sequential Compression Device (SCD) Assessment and Plan - Plan //Acute systolic CHF exacerbation //Bilateral pleural effusions Cytology on pleural effusions previously negative for malignancy. Likely secondary to fluid overload.. BNP elevated at 1017. Troponin baseline. Patient denies any chest pain. = We will check EKG = Continue beta-ivis. Will discuss with nephrology tomorrow if patient can be on DAVINA inhibitor as she does not make any urine. Nephrology consulted for dialysis. Pulmonology consulted for bilateral pleural effusions. Previously seen by . //ESRD. Nephrology consulted. Appreciate assistance. //Hypertension. Chronic. Continue home medication. Discussed Condition With: Patient, nurse, ED physician. H&P: Quality - VTE Deep Vein Thrombosis/Pulmonary Embolism Present on Admission: No
[2018-02-15] MEDS: Metoprolol Tartrate 50 MG Tablet PO SCH (21:06)
[2018-02-15] MEDS ORDERED: Influenza (Quadrivalent) Vaccine 0.5 ML Syringe IM ONE (22:15)
[2018-02-16 07:37] LABS: Baso # (Auto) 0.1 th/mm3 (0.0-0.2); Baso % (Auto) 0.8 % (0.0-2.0); Eos # (Auto) 0.5 th/mm3 (0.0-0.4); Eos % (Auto) 4.7 % (0.0-4.0); Hematocrit 37.3 % (35.0-46.0); Hemoglobin 11.5 gm/dL (11.6-15.3); Lymph # (Auto) 0.9 th/mm3 (1.0-4.8); Lymph % (Auto) 9.1 % (9.0-44.0); Mean Corpuscular Volume 74.6 fL (80.0-100.0); Mean Platelet Volume 8.8 fL (7.0-11.0); Mono # (Auto) 0.9 th/mm3 (0.0-0.9); Mono % (Auto) 9.3 % (0.0-8.0); Neut # (Auto) 7.4 th/mm3 (1.8-7.7); Neut % (Auto) 76.1 % (16.0-70.0); Platelet Count 163 th/mm3 (150-450); Red Cell Distribution Width 29.1 % (11.6-17.2); White Blood Count 9.7 th/mm3 (4.0-11.0)
[2018-02-16 07:38] LABS: Mean Corpuscular HGB Conc 30.8 % (32.0-36.0)
[2018-02-16] MEDS: amLODIPine 10 MG Tablet PO SCH (08:42)
[2018-02-16] MEDS: Vitamin B Complex/Vit C/Folic Tablet PO SCH (08:42)
[2018-02-16] MEDS: Metoprolol Tartrate 50 MG Tablet PO SCH ×2 (08:42→22:07)
[2018-02-16 08:50] LABS: Burr Cells 1+; Ovalocytes 1+; Target Cells 1+
[2018-02-16 08:51] LABS: Platelet Estimate Normal (Normal); Platelet Morphology Normal (Normal); Spherocytes Occ
[2018-02-16 09:47] LABS: Alanine Aminotransferase 20 U/L (10-53); Albumin 2.8 g/dL (3.4-5.0); Alkaline Phosphatase 103 U/L (45-117); Anion Gap 17 meq/L (5-15); Blood Urea Nitrogen 91 mg/dL (7-18); Calcium 9.1 mg/dL (8.5-10.1); Carbon Dioxide 24.9 meq/L (21.0-32.0); Chloride 95 meq/L (98-107); Glomerular Filtration Rate 3 mL/min (>89); Glucose,Random 94 mg/dL (74-106); Sodium 137 meq/L (136-145); Total Protein 8.2 g/dL (6.4-8.2)
[2018-02-16 10:03] LABS: Aspartate Aminotransferase 20 U/L (15-37); Potassium 3.4 meq/L (3.5-5.1)
--- NOTE | 2018-02-16 10:50 | P.PNIM ---
Subjective Interval history: patient says she is breathing better today. Denies any chest pain. Physical Exam Vital signs: Vital Signs 02/15/18 14:39 02/15/18 14:49 02/15/18 14:56 Temperature 97.9 F 98.5 F Pulse Rate 66 64 Respiratory Rate 22 20 Blood Pressure 147/65 H 170/83 H Pulse Oximetry 86 L 93 L 97 02/15/18 16:13 02/15/18 19:08 02/15/18 20:00 Temperature 98.1 F Pulse Rate 63 62 Respiratory Rate 16 16 Blood Pressure 147/63 H 149/72 H Pulse Oximetry 93 L 93 L 94 L 02/16/18 00:00 02/16/18 04:00 02/16/18 08:00 Temperature 98 F 98.2 F 99.1 F Pulse Rate 60 62 73 Respiratory Rate 16 16 17 Blood Pressure 157/74 H 160/70 H 160/74 H Pulse Oximetry 96 93 L 93 L Intake & Output 02/15/18 02/16/18 02/16/18 18:59 06:59 18:59 Intake Total 480 / 480 Output Total 1797 / 1797 Balance 480 / 480 -1797 / -1797 Weight 45.813 kg 45.8 kg Intake: Oral 480 / 480 Output: Peritoneal Amount 1797 / 1797 Other: # Voids 0 Date of Last Bowel Movement 02/16/18 02/15/18 # Bowel Movements 1 Narrative: GENERAL: Patient sitting up in bed. Appears comfortable. Alert and oriented x3. SKIN: Warm and dry. HEAD: Normocephalic. EYES: No scleral icterus. No injection or drainage. NECK: Supple, trachea midline. No JVD. CARDIOVASCULAR: Regular rate and rhythm without murmurs, gallops, or rubs. RESPIRATORY: Breath sounds improved bilaterally. Still decreased breath sounds at the bases but improved. GASTROINTESTINAL: Abdomen soft, non-tender, nondistended. MUSCULOSKELETAL: No cyanosis, or edema. BACK: Nontender without obvious deformity. No CVA tenderness. Results - Labs CBC & Chem 7: 02/16/18 06:10 02/16/18 08:42 Laboratory Results - last 24 hr 02/15/18 02/15/18 02/15/18 15:00 15:00 15:00 WBC 10.6 RBC 4.96 Hgb 11.7 Hct 36.3 MCV 73.3 L MCH 23.6 L MCHC 32.2 RDW 27.3 H Plt Count 154 MPV 8.8 Prelim Diff (Auto) Slide review pending Neut % (Auto) 78.7 H Lymph % (Auto) 8.5 L [place] % (Auto) 8.2 H Eos % (Auto) 3.7 Baso % (Auto) 0.9 Neut # (Auto) 8.3 H Lymph # (Auto) 0.9 L [place] # (Auto) 0.9 Eos # (Auto) 0.4 Baso # (Auto) 0.1 WBC Differential . Diff Scan Auto diff confirmed Differential Comment . Platelet Estimate Normal Platelet Morphology Normal Spherocytes Target Cells Tear Drop Cells 1+ H Ovalocytes 1+ H [place] Cells Hematology Comments PT 11.5 INR 1.1 APTT 28.3 Sodium 133 L Potassium 3.6 Chloride 91 L Carbon Dioxide 26.5 Anion Gap 16 H BUN 95 H Creatinine 13.78 H* Estimated GFR 3 L Random Glucose 108 H Calcium 9.0 Magnesium 4.2 H Total Bilirubin 0.6 AST 21 ALT 21 Alkaline Phosphatase 113 Total Creatine Kinase 72 Troponin I 0.13 H B-Natriuretic Peptide Total Protein 8.6 H Albumin 3.1 L 02/15/18 02/16/18 02/16/18 15:00 06:10 08:42 WBC 9.7 RBC 5.00 Hgb 11.5 L Hct 37.3 MCV 74.6 L MCH 23.0 L MCHC 30.8 L RDW 29.1 H Plt Count 163 MPV 8.8 Prelim Diff (Auto) Slide review pending Neut % (Auto) 76.1 H Lymph % (Auto) 9.1 [place] % (Auto) 9.3 H Eos % (Auto) 4.7 H Baso % (Auto) 0.8 Neut # (Auto) 7.4 Lymph # (Auto) 0.9 L [place] # (Auto) 0.9 Eos # (Auto) 0.5 H Baso # (Auto) 0.1 WBC Differential . Diff Scan Auto diff confirmed Differential Comment . Platelet Estimate Normal Platelet Morphology Normal Spherocytes Occ H Target Cells 1+ H Tear Drop Cells Ovalocytes 1+ H [place] Cells 1+ H Hematology Comments PT INR APTT Sodium 137 Potassium 3.4 L Chloride 95 L Carbon Dioxide 24.9 Anion Gap 17 H BUN 91 H Creatinine 14.01 H* Estimated GFR 3 L Random Glucose 94 Calcium 9.1 Magnesium Total Bilirubin 0.6 AST 20 ALT 20 Alkaline Phosphatase 103 Total Creatine Kinase Troponin I B-Natriuretic Peptide 1017 H Total Protein 8.2 Albumin 2.8 L - Imaging Impressions Chest X-Ray 02/15/18 14:49 CONCLUSION: 1. Cardiomegaly. 2. Moderate-sized bilateral pleural effusions. 3. Mild pulmonary vascular congestion bilaterally. 4. Bibasilar patchy consolidations. Assessment and Plan - Plan //Acute systolic CHF exacerbation //Bilateral pleural effusions Cytology on pleural effusions previously negative for malignancy. Likely secondary to fluid overload.. BNP elevated at 1017. Troponin baseline. Patient denies any chest pain. = We will check EKG = Continue beta-ivis. Will discuss with nephrology tomorrow if patient can be on DAVINA inhibitor as she does not make any urine. Nephrology consulted for dialysis. Pulmonology consulted for bilateral pleural effusions. Previously seen by . = Continue dialysis as per nephrology. Improvement in shortness of breath. Repeat chest x-ray to eval for pleural effusions. Follow-up pulmonology recommendations. //ESRD. Nephrology consulted. Appreciate assistance. //Hypertension. Chronic. Continue home medication. Discharge Planning: Hopefully discharge home within the next 2 days. Nephrology and pulmonology clearance.
--- NOTE | 2018-02-16 10:56 | P.PNNP ---
Subjective Interval history: Shortness of breath has improved. PD last night tolerated well. Denies any chest pain, nausea, vomiting, or loose stools. <Ariela Snider - Last Filed: 02/16/18 10:46> Physical Exam Vital signs: Vital Signs 02/15/18 14:39 02/15/18 14:49 02/15/18 14:56 Temperature 97.9 F 98.5 F Pulse Rate 66 64 Respiratory Rate 22 20 Blood Pressure 147/65 H 170/83 H Pulse Oximetry 86 L 93 L 97 02/15/18 16:13 02/15/18 19:08 02/15/18 20:00 Temperature 98.1 F Pulse Rate 63 62 Respiratory Rate 16 16 Blood Pressure 147/63 H 149/72 H Pulse Oximetry 93 L 93 L 94 L 02/16/18 00:00 02/16/18 04:00 02/16/18 08:00 Temperature 98 F 98.2 F 99.1 F Pulse Rate 60 62 73 Respiratory Rate 16 16 17 Blood Pressure 157/74 H 160/70 H 160/74 H Pulse Oximetry 96 93 L 93 L Intake & Output 02/15/18 02/16/18 02/16/18 18:59 06:59 18:59 Intake Total 480 / 480 Output Total 1797 / 1797 Balance 480 / 480 -1797 / -1797 Weight 45.813 kg 45.8 kg Intake: Oral 480 / 480 Output: Peritoneal Amount 7 / 1797 Other: # Voids 0 Date of Last Bowel Movement 02/16/18 02/15/18 # Bowel Movements 1 Narrative: GENERAL: Patient sitting up in bed. Frail and cachectic. NAD. SKIN: Warm and dry. Left upper extremity AV fistula without any signs of infection.. ENT: No nasal bleeding or discharge. Mucous membranes pink and moist. NECK: Trachea midline. No JVD. CARDIOVASCULAR: Regular rate and rhythm. RESPIRATORY: No accessory muscle use. Breath sounds diminished bilaterally. O2 per [place] GASTROINTESTINAL: Abdomen soft, non-tender, nondistended. Hepatic and splenic margins not palpable. Peritoneal dialysis catheter MUSCULOSKELETAL: Extremities without clubbing, cyanosis, or edema. No obvious deformities. NEUROLOGICAL: Awake and alert. Normal speech. <Ariela Snider - Last Filed: 02/16/18 10:46> Assessment and Plan - Assessment (1) End-stage renal disease on peritoneal dialysis Code(s): N18.6 - End stage renal disease; Z99.2 - Dependence on renal dialysis Status: Acute Plan: End stage renal disease on peritoneal dialysis nightly. Plan Last night 2.5 % solution/green used with removal of 1.7 liters of fluid, tolerated well with improvement in shortness of breath Renal diet, high protein, fluid restriction Continue renvela Continue APD nightly. (2) Pleural effusion Code(s): J90 - Pleural effusion, not elsewhere classified Status: Acute Plan: Bilateral moderate pleural effusion, chest Xray pending for today Shortness of breath has improved. <Ariela Snider - Last Filed: 02/16/18 10:46> - Assessment (1) End-stage renal disease on peritoneal dialysis Code(s): N18.6 - End stage renal disease; Z99.2 - Dependence on renal dialysis Status: Acute Plan: Patient seen and examined, agree with above. Seen by Pulmonology, not much fluid form Thoracentesis. Continue same PD, and fluid restriction. (2) Pleural effusion Code(s): J90 - Pleural effusion, not elsewhere classified Status: Acute <Doretha Ernst - Last Filed: 02/23/18 11:36>
--- NOTE | 2018-02-16 11:59 | ECG ---
Date Performed: 02/15/2018 Time Performed: 16:40:07 PTAGE: 57 years EKG: Sinus rhythm POSSIBLE LEFT ATRIAL ENLARGEMENT MARKED LEFT AXIS DEVIATION POSSIBLE LEFT VENTRICULAR HYPERTROPHY NO NSPECIFIC T-WAVE ABNORMALITY ABNORMAL ECG INTERPRETATION BASED ON A DEFAULT AGE OF 40 YEARS PREVIOUS TRACING : 12/08/2017 16.55 Since the previous tracing, no significant change not ed DOCTOR: Garret Carmen Interpretating Date/Time 02/16/2018 11:58:52
--- NOTE | 2018-02-16 12:11 | MB ---
cc: Roel Calle MD DATE: 02/16/2018 REQUESTING PHYSICIAN: Dr. Emerson. REASON FOR CONSULTATION: History of lupus. HISTORY OF PRESENT ILLNESS: Ms. Garvin is a 57-year-old female with history of end-stage renal disease on peritoneal dialysis and history of recurrent pleural effusions. She uses oxygen 2 liter nasal cannula. She came to the hospital with a chief complaint of increasing shortness of breath for at least 1 week. Feels weak, mild shortness of breath. Did not have fever, chills, no night sweats. Has occasional cough. No fever. The patient was evaluated in the emergency room. She had a chest x-ray done which showed bilateral pleural effusions. Her CBC shows WBCs 9.7, hemoglobin 11.5, hematocrit 37.3, MCV 74, platelet count 163. Her sodium 137, potassium 3.4, chloride 95, CO2 17, BUN 91, creatinine 14.01. The patient had peritoneal dialysis overnight and she feels significantly better and wants to go home. PAST MEDICAL HISTORY: Significant for history of end-stage renal disease, on peritoneal dialysis, history of recurrent pleural effusions, congestive heart failure, chronic anemia, history of breast cancer, history of PD catheter placement. MEDICATIONS: She is currently takin. Amlodipine 10 mg a day. 2. Heparin. 3. Metoprolol 50 mg twice a day. 4. Renvela 2400 mg 3 times a day. 5. Vitamin B12. ALLERGIES: NO KNOWN DRUG ALLERGIES. SOCIAL HISTORY: She is single. No history of smoking or alcohol abuse. She lives with her mother. REVIEW OF SYSTEMS: She has lost some weight. No DVT or pulmonary embolism, no seizures or stroke. PHYSICAL EXAMINATION: GENERAL: Thin built female, not in any acute distress. VITAL SIGNS: Her blood pressure 160/74, heart rate 72, respiratory rate is 17, temperature is 99.1. HEENT: Pupils are equal and reactive to light. Nasal mucosa normal. NECK: Supple. JVP not raised. CHEST: Decreased breath sounds at bases. CARDIOVASCULAR: S1, S2 normal. ABDOMEN: Soft, nontender. Bowel sounds are present. She has a PD catheter in place. EXTREMITIES: No edema. IMPRESSION: 1. Bilateral pleural effusions. She is stable and she is tolerating well, likly from fluid overload. 2. End-stage renal disease, on peritoneal dialysis. 3. Hypertension. 4. History of carcinoma of the breast. PLAN: I discussed with the patient. She feels so much better after dialysis overnight and does not want to have the thoracentesis done. Supplemental oxygen. Monitor her pleural effusion. She is stable from a pulmonary standpoint. She will follow up as an outpatient. Thank you Dr. Emerson for this consult. MD LANA Perry/bernardo , 11:09 AM , 11:20 AM MARCOS
--- NOTE | 2018-02-16 12:29 | XR ---
EXAM DATE: 02/16/2018 12:00 AM EDT AGE/SEX: 57 years / Female INDICATIONS: Cough and evaluate for pleural effusion. CLINICAL DATA: This is the patient's subsequent encounter. Patient reports that signs and symptoms h ave been present for 1 week and indicates a pain score of 0/10. MEDICAL/SURGICAL HISTORY: . Chronic renal failure, dialysis, pleural effusion, Carcinoma, breas t. None. COMPARISON: C, CHEST 2V PA&LAT, 02/15/2018. . FINDINGS: There is no significant change in the bilateral pleural effusions, bilateral infiltrates and cardiome marisela. Mild pulmonary vascular congestion is also still noted. Degenerative changes and scoliosis of t he thoracic spine are stable. CONCLUSION: No significant change in the bilateral pleural effusions, bilateral infiltrates, mild congestion and cardiomegaly. Electronically signed by: Jamil Morales MD 02/16/2018 12:28 PM EDT
[2018-02-17 05:33] VITALS: PULSE 62
[2018-02-17 09:09] VITALS: RESP 20; TEMP 98.8
[2018-02-17] MEDS: amLODIPine 10 MG Tablet PO SCH (09:19)
[2018-02-17] MEDS: Metoprolol Tartrate 50 MG Tablet PO SCH (09:19)
[2018-02-17] MEDS: Vitamin B Complex/Vit C/Folic Tablet PO SCH (09:19)
--- NOTE | 2018-02-17 12:16 | P.PNNP ---
Subjective Interval history: Patient breathing is better Physical Exam Vital signs: Vital Signs 02/16/18 12:22 02/16/18 16:00 02/16/18 20:00 Temperature 98.1 F 97.6 F Pulse Rate 68 67 Respiratory Rate 17 16 Blood Pressure 141/73 H 152/70 H Pulse Oximetry 95 93 L 94 L 02/17/18 00:00 02/17/18 04:00 02/17/18 08:00 Temperature 97.9 F 98.2 F 98.8 F Pulse Rate 63 62 62 Respiratory Rate 16 16 20 Blood Pressure 152/68 H 143/69 H 157/75 H Pulse Oximetry 93 L 94 L 95 Intake & Output 02/16/18 02/17/18 02/17/18 18:59 06:59 18:59 Intake Total 480 / 480 480 / 480 Output Total 1797 / 179 1733 / 1733 Balance -1317 / -1317 480 / 480 -1733 / -1733 Weight 45.7 kg Intake: Oral 480 / 480 480 / 480 Output: Peritoneal Amount 1796 / 1797 1733 / 1733 Other: # Voids 0 # Urine Diapers 0 Date of Last Bowel Movement 02/15/18 02/15/18 # Bowel Movements 0 1 Narrative: GENERAL: Patient sitting up in bed. Frail and cachectic. NAD. SKIN: Warm and dry. Left upper extremity AV fistula without any signs of infection.. ENT: No nasal bleeding or discharge. Mucous membranes pink and moist. NECK: Trachea midline. No JVD. CARDIOVASCULAR: Regular rate and rhythm. RESPIRATORY: No accessory muscle use. Breath sounds diminished bilaterally. O2 per [place] GASTROINTESTINAL: Abdomen soft, non-tender, nondistended. Hepatic and splenic margins not palpable. Peritoneal dialysis catheter MUSCULOSKELETAL: Extremities without clubbing, cyanosis, or edema. No obvious deformities. NEUROLOGICAL: Awake and alert. Normal speech. Assessment and Plan - Assessment (1) End-stage renal disease on peritoneal dialysis Code(s): N18.6 - End stage renal disease; Z99.2 - Dependence on renal dialysis Status: Acute Plan: End stage renal disease on peritoneal dialysis nightly. Plan Last night 2.5 % solution/green used with removal of 1.733 liters of fluid, tolerated well with improvement in shortness of breath Renal diet, high protein, fluid restriction Continue Renvela Continue PD nightly. Patient would like to use 1.25/2.5 as feeling drained as a result private decline more than her usual weight Discussed with Dr. Ki almendarez to discharge from nephrology point follow-up with Dr. Ernst (2) Pleural effusion Code(s): J90 - Pleural effusion, not elsewhere classified Status: Acute Plan: Bilateral moderate pleural effusion, chest Xray pending for today Shortness of breath has improved.
[2018-02-17 12:58] VITALS: O2SAT 94
[2018-02-17 13:17] VITALS: BP 133/68
--- NOTE | 2018-02-17 13:58 | P.PNIM ---
Subjective Interval history: Patient says she is feeling well. Denies any chest pain or shortness of breath. Feels like going home. Physical Exam Vital signs: Vital Signs 02/16/18 16:00 02/16/18 20:00 02/17/18 00:00 Temperature 98.1 F 97.6 F 97.9 F Pulse Rate 68 67 63 Respiratory Rate 17 16 16 Blood Pressure 141/73 H 152/70 H 152/68 H Pulse Oximetry 93 L 94 L 93 L 02/17/18 04:00 02/17/18 08:00 02/17/18 12:00 Temperature 98.2 F 98.8 F 98.8 F Pulse Rate 62 62 62 Respiratory Rate 16 20 20 Blood Pressure 143/69 H 157/75 H 133/68 Pulse Oximetry 94 L 95 94 L 02/17/18 12:57 Temperature Pulse Rate Respiratory Rate Blood Pressure Pulse Oximetry 94 L Intake & Output 02/16/18 02/17/18 02/17/18 18:59 06:59 18:59 Intake Total 480 / 480 480 / 480 Output Total 1797 / 1797 1733 / 1733 Balance -1317 / -1317 480 / 480 -1733 / -1733 Weight 45.7 kg Intake: Oral 480 / 480 480 / 480 Output: Peritoneal Amount 1797 / 1797 1733 / 1733 Other: # Voids 0 # Urine Diapers 0 Date of Last Bowel Movement 02/15/18 02/15/18 # Bowel Movements 0 1 Narrative: GENERAL: Patient sitting up in chair at bedside. Appears comfortable. Alert and oriented x3. SKIN: Warm and dry. HEAD: Normocephalic. EYES: No scleral icterus. No injection or drainage. NECK: Supple, trachea midline. No JVD. CARDIOVASCULAR: Regular rate and rhythm without murmurs, gallops, or rubs. RESPIRATORY: Breath sounds equal bilaterally. No accessory muscle use. GASTROINTESTINAL: Abdomen soft, non-tender, nondistended. MUSCULOSKELETAL: No cyanosis, or edema. BACK: Nontender without obvious deformity. No CVA tenderness. Results - Labs CBC & Chem 7: 02/16/18 06:10 02/16/18 08:42 Assessment and Plan - Plan //Acute systolic CHF exacerbation //Bilateral pleural effusions Cytology on pleural effusions previously negative for malignancy. Likely secondary to fluid overload.. BNP elevated at 1017. Troponin baseline. Patient denies any chest pain. = We will check EKG = Continue beta-ivis. Will discuss with nephrology tomorrow if patient can be on DAVINA inhibitor as she does not make any urine. Nephrology consulted for dialysis. Pulmonology consulted for bilateral pleural effusions. Previously seen by . = Continue dialysis as per nephrology. Improvement in shortness of breath. Repeat chest x-ray to eval for pleural effusions. Follow-up pulmonology recommendations. = Symptomatically improved. Discussed with nephrology. Will change dialysis regimen. Follow-up with primary care, nephrology as outpatient. //ESRD. Nephrology consulted. Appreciate assistance. //Hypertension. Chronic. Continue home medication. Discharge Planning: Discharge home today.
--- NOTE | 2018-02-17 13:59 | P.DS ---
Date of admission: 02/15/18 16:12 Primary care physician: Neftali Chisholm III, MD Brief History from admission: 57-year-old female with a history of systolic CHF, EF most recently 40-45% 1 year ago, recurrent bilateral pleural effusions. End-stage renal disease, on peritoneal dialysis who presents with a one-week history of progressively worsening shortness of breath both at rest and with exertion. She reports a chronic cough productive of white sputum which not changed. sHe denies any fevers, chills, chest pain, shortness of breath. She denies any nausea or vomiting. Denies any chest pain. Denies any peripheral edema. Denies orthopnea. She reports being compliant with her peritoneal dialysis. Denies any recent medication changes. DS: Summary Hospital Course: Nephrology was consulted, patient had peritoneal dialysis suggested to remove more fluid. Shortness of breath improved with increased dialysis. Patient to discharge home with adjusted dialysis to increase fluid removal. Appreciate nephrology assistance. Follow with nephrology as outpatient. For problem-based summary from most recent progress note, please see below. //Acute systolic CHF exacerbation //Bilateral pleural effusions Cytology on pleural effusions previously negative for malignancy. Likely secondary to fluid overload.. BNP elevated at 1017. Troponin baseline. Patient denies any chest pain. = We will check EKG = Continue beta-ivis. Will discuss with nephrology tomorrow if patient can be on DAVNIA inhibitor as she does not make any urine. Nephrology consulted for dialysis. Pulmonology consulted for bilateral pleural effusions. Previously seen by . = Continue dialysis as per nephrology. Improvement in shortness of breath. Repeat chest x-ray to eval for pleural effusions. Follow-up pulmonology recommendations. = Symptomatically improved. Discussed with nephrology. Will change dialysis regimen. Follow-up with primary care, nephrology as outpatient. //ESRD. Nephrology consulted. Appreciate assistance. //Hypertension. Chronic. Continue home medication. Discharge Planning: Discharge home today. - Time Spent with Patient Total time spent providing and/or coordinating discharge services: Greater than 30 minutes - Quality: VTE Deep Vein Thrombosis/Pulmonary Embolism Present on Admission: No Exam Vital signs: Vital Signs 02/16/18 16:00 02/16/18 20:00 02/17/18 00:00 Temperature 98.1 F 97.6 F 97.9 F Pulse Rate 68 67 63 Respiratory Rate 17 16 16 Blood Pressure 141/73 H 152/70 H 152/68 H Pulse Oximetry 93 L 94 L 93 L 02/17/18 04:00 02/17/18 08:00 02/17/18 12:00 Temperature 98.2 F 98.8 F 98.8 F Pulse Rate 62 62 62 Respiratory Rate 16 20 20 Blood Pressure 143/69 H 157/75 H 133/68 Pulse Oximetry 94 L 95 94 L 02/17/18 12:57 Temperature Pulse Rate Respiratory Rate Blood Pressure Pulse Oximetry 94 L Intake & Output 02/16/18 02/17/18 02/17/18 18:59 06:59 18:59 Intake Total 480 / 480 480 / 480 Output Total 1797 / 1797 1733 / 1733 Balance -1317 / -1317 480 / 480 -1733 / -1733 Weight 45.7 kg Intake: Oral 480 / 480 480 / 480 Output: Peritoneal Amount 1797 / 1797 1733 / 1733 Other: # Voids 0 # Urine Diapers 0 Date of Last Bowel Movement 02/15/18 02/15/18 # Bowel Movements 0 1 Results Procedures completed during hospitalization: Peritoneal dialysis. No invasive procedures. - Impressions ITS Impressions Chest X-Ray 02/16/18 00:00 CONCLUSION: No significant change in the bilateral pleural effusions, bilateral infiltrates , mild congestion and cardiomegaly. Discharge Plan - Discharge Disposition Patient Disposition: 01 Discharge Home - Discharge Condition Condition: Good - Discharge Order Discharge Orders: Discharge Order (Routine); Ordered 02/17/18 Ordered By: Joaquim Emerson - Discharge Details Anticipated Discharge Date: 02/17/18 - Physicians Team Primary Care Provider: Neftali Chisholm III Attending Provider: Joaquim Emerson Other Providers: Doretha Ernst MD ; Roel Calle MD
== END 2018-02-17 15:20 | disposition home or self-care (01) ==
LOC: NEPE 14:37 → NEDA 14:37 → N04 17:37
PROVIDERS: ADMIT Internal Medicine; ATTEND Internal Medicine